=== PATIENT | female | born 1940 | race Caucasian/White ===

== ENCOUNTER 2017-01-29 19:09 | Emergency (ER) | payer OTHER ==
[~2017-01-29] VITALS: Ht 152.4 cm; Wt 65.0 kg
[~2017-01-29 19:09] MED LIST: ACET325T96 PO; ATV/1 PO; BUPR100T8 PO; GABA-113 PO; IBUP-1050 PO; LEVO25TA30 PO; MONT1TAB3 PO; OMEP40CA PO; ONDA4TAB65 PO; POTA-327 PO; ROPI1TAB PO; SIMV40TA2 PO; TRAM-10 PO; TRAM-453 PO; TRIA0.1O12 TOP; ZNT/150 PO
[2017-01-29 19:17] VITALS: Ht 152.4 cm; Wt 65.0 kg
--- NOTE | 2017-01-29 20:17 | EMERGENCY ROOM VISIT NOTE ---
ED Visit Note First contact with patient: 19:22 CHIEF COMPLAINT: Tick in the left breast HISTORY OF PRESENT ILLNESS: This patient noticed a tick embedded in the left breast this morning. Her was able to remove some of it but the patient still believes that she sees a small dark spot in the middle. She is not sure how long it could have been on, and comments that she thought that it looked slightly engorged. She covered the area with antibiotic ointment and a Band- Aid. REVIEW OF SYSTEMS: Review of systems as per HPI. All other systems reviewed were negative. At least 6 systems reviewed. PMH: Electronic medical records are reviewed and summarized as above/below. See Problem List. Tetanus is up-to-date. SOCIAL HISTORY: Patient lives at home. Non-smoker, occasional alcohol use. PHYSICAL EXAM: Vital Signs: Reviewed Nurse's notes. The mouth parts of a tick are embedded in the left upper breast at roughly 11:00. There is a small zone of inflammation around it. EMERGENCY DEPARTMENT COURSE: The area was cleansed with alcohol and anesthetized with ethyl chloride spray. The mouth parts of the tick were elevated with an 18-gauge needle, then excised with an 11 blade. Patient tolerated the procedure well. Bacitracin and a band-aid were put on the wound. She was given doxycycline 200 mg orally. She is educated on the worrisome signs or symptoms for which she should seek immediate medical attention. She does not have any evidence for infection at this time. Problem List Medical Problems: (1) Anemia Status: Resolved (2) Anxiety Status: Chronic (3) Cerebral vascular disease Status: Chronic (4) Chronic hyperkalemia Status: Chronic (5) Depression Status: Chronic (6) GERD (gastroesophageal reflux disease) Status: Chronic (7) Hyperlipidemia Status: Chronic (8) Hypothyroidism Status: Chronic (9) Osteoarthritis Status: Chronic Surgical Problems: (1) Previous back surgery Status: Chronic (2) S/P cholecystectomy Status: Chronic (3) S/P hysterectomy Status: Chronic (4) Status post arthroscopy of shoulder Status: Chronic Current/Historical Medications Scheduled Bupropion (Wellbutrin Sr), 100 MG PO BID Gabapentin (Neurontin), 300 MG PO HS Levothyroxine Sodium (Levoxyl), 62.5 MCG PO QAM Lorazepam (Ativan), 1 MG PO HS Montelukast Sodium (Singulair), 10 MG PO QAM Omeprazole (Prilosec), 40 MG PO BID Potassium Ext Rel (Klor-Con), 10 MEQ PO QAM Ranitidine Hcl (Zantac), 150 MG PO HS Ropinirole (Requip), 1 MG PO HS Simvastatin (Zocor), 40 MG PO HS Tramadol (Ultram), 50 MG PO HS Scheduled PRN Acetaminophen Tab (Tylenol), 325 MG PO Q8 PRN for Pain Ibuprofen (Advil), 400 MG PO UD PRN for Pain Ondansetron Hcl (Zofran), 4 MG PO TID PRN for Nausea Tramadol Hcl (Ultram), 50 MG PO Q8 PRN for Pain Triamcinolone Acet (Kenelog 0.1% ), 1 APPL TOP BID PRN for SKIN IMPAIRMENT Allergies Coded Allergies: Cyclobenzaprine (Verified Allergy, Severe, ANAPHYLAXIS, 04/07/16) Sulfa Antibiotics (Verified Allergy, Severe, Shortness of Breath, Rash, ) Tolterodine (Verified Adverse Reaction, Mild, DRY MOUTH, 04/07/16) Vital Signs Date Time Temp Pulse Resp B/P Pulse Ox O2 Delivery O2 Flow Rate FiO2 01/29/17 20:27 85 16 148/91 96 01/29/17 19:17 68 18 175/74 96 Room Air Medications Administered Medications (Trade) Dose Ordered Sig/Xenia Route Start Time Stop Time Status Last Admin Dose Admin Doxycycline Hyclate (Vibramycin Cap) 200 mg ONE ONCE PO 01/29/17 20:30 01/29/17 20:31 DC 01/29/17 20:33 200 MG Departure Information Impression Primary Impression: Tick bite Referrals Vika Castellanos D.O. (PCP) Patient Instructions My [facility] Additional Instructions Use Ibuprofen or Tylenol as needed for pain/discomfort. Follow up with family physician for continued care and treatment; rashes, bullet lesion, muscle or joint pain. Watch for signs of infection; increasing redness and swelling, pus like drainage or fevers. Keep antibiotic ointment on the site for 2-3 days. Return to the ED for signs of infection.
--- NOTE | 2017-01-29 20:22 | EMERGENCY ROOM VISIT NOTE ---
ED Visit Note First contact with patient: 19:22 Staff note: I have reviewed the Patients chart and have discussed this case with my PA. I generally agree with the ED note and findings.
[2017-01-29 20:27] VITALS: BP 148/91; PULSE 85; O2SAT 96
[2017-01-29] MEDS ORDERED: DOXYCYCLINE HYCLATE 100 MG CAP PO ONE (20:30)
== END 2017-01-29 20:35 | disposition home or self-care (01) ==
LOC: C.EDB 19:10 → C.EDD 20:35
DX: S29.8XXA Other specified injuries of thorax, initial encounter (principal); W57.XXXA Bitten or stung by nonvenomous insect and other nonvenomous arthropods, initial encounter; K21.9 Gastro-esophageal reflux disease without esophagitis; E87.5 Hyperkalemia; E78.5 Hyperlipidemia, unspecified; E03.9 Hypothyroidism, unspecified; M19.90 Unspecified osteoarthritis, unspecified site; Z90.49 Acquired absence of other specified parts of digestive tract; Z90.710 Acquired absence of both cervix and uterus

== ENCOUNTER 2018-02-01 17:32 | Emergency (ER) | payer MEDICARE, OTHER ==
[~2018-02-01] VITALS: Ht 152.4 cm; Wt 55.3 kg
[~2018-02-01 17:32] MED LIST changes: +ACET-1693 PO; -ACET325T96 PO
[2018-02-01 17:44] VITALS: TEMP 36.8; Ht 152.4 cm; Wt 55.3 kg
[2018-02-01] MEDS ORDERED: LORAZEPAM 1 MG TAB PO STA (18:45)
--- NOTE | 2018-02-01 19:17 | EMERGENCY ROOM VISIT NOTE ---
History Report prepared by Jo Ann: Moncho Eagle Under the Supervision of: Dr. Charles Chowdhury M.D. First contact with patient: 18:41 Chief Complaint: OTHER COMPLAINT Stated Complaint: SHAKING BAD,FEELS LIKE THROAT/LEGS/FEET IS SWOLLEN History of Present Illness The patient is a 77 year old female who presents to the Emergency Room with complaints of resolved tremors that occurred around 1300. The patient states she was experiencing right hand shakiness, which was later diagnosed as early Parkinson's disease by Dr. Luis Aguilera. She reports she was prescribed Carbidopa, which was gradually increased to 1.5 pills three times a day. The patient states starting a couple of weeks ago, she started to develop shakiness. She reports today she woke up with right hip pain. The patient states she did fall in the bath tub a couple of years ago, but states she has not experienced hip pain to this extent since the incident. She reports she had an x-ray done after the fall, which showed no significant results. The patient states after the hip pain, she also started to experience nausea. She reports she took antinausea medication and Ibuprofen for her symptoms. The patient states she accidentally took her Parkinson's medication an hour and a half later at 1130. The patient states she took and nap and woke up around 1300. She reports she started to severely shake and became anxious. She reports it felt as if her throat was closing and she was not able to breathe or swallow. The patient states at one point she tried to bite her tongue. She reports she tried to call Dr. Aguilera today, but states she was not able to get a hold of her physician. She reports she called her pharmacy who told her the medication she takes can cause these types of symptoms. The patient states the pharmacy told her to come to the ED if she felt her symptoms were severe. The patient denies LOC, headache, fevers, chills, diaphoresis, visual changes, neck pain, chest pain, vomiting, abdominal pain, melena, hematochezia, urinary symptoms, numbness , weakness, lymphadenopathy, rash, or other complaints. The patient reports a chronic history of back pain. Source of History: patient Onset: 1300 Position: other (global) Quality: other (shaking) Timing: resolved Modifying Factors (Relieving): ibuprofen, other Associated Symptoms: + nausea, + back pain Note: Associated symptoms: Right hip pain, closing throat Review of Systems See HPI for pertinent positives and negatives. A total of ten systems were reviewed and were otherwise negative. Past Medical & Surgical Medical Problems: (1) Anemia (2) Anxiety (3) Cerebral vascular disease (4) Chronic hyperkalemia (5) Depression (6) GERD (gastroesophageal reflux disease) (7) Hyperlipidemia (8) Hypothyroidism (9) Osteoarthritis Surgical Problems: (1) Previous back surgery (2) S/P cholecystectomy (3) S/P hysterectomy (4) Status post arthroscopy of shoulder Family History Cancer Diabetes mellitus FH: Parkinson's disease MOTHER Gallbladder disease Heart disease FATHER Hypertension Kidney disease Kidney stones Lung disease Stroke Social History Smoking Status: Former Smoker Marital Status: Housing Status: lives with significant other Occupation Status: retired Current/Historical Medications Scheduled Bupropion (Wellbutrin Sr), 100 MG PO BID Gabapentin (Neurontin), 300 MG PO HS Levothyroxine Sodium (Levoxyl), 62.5 MCG PO QAM Lorazepam (Ativan), 1 MG PO HS Montelukast Sodium (Singulair), 10 MG PO QAM Omeprazole (Prilosec), 40 MG PO BID Potassium Ext Rel (Klor-Con), 10 MEQ PO QAM Ranitidine Hcl (Zantac), 150 MG PO HS Ropinirole (Requip), 1 MG PO HS Simvastatin (Zocor), 40 MG PO HS Tramadol (Ultram), 50 MG PO HS Scheduled PRN Acetaminophen Tab (Tylenol), 325 MG PO Q8 PRN for Pain Ibuprofen (Advil), 400 MG PO UD PRN for Pain Ondansetron Hcl (Zofran), 4 MG PO TID PRN for Nausea Tramadol Hcl (Ultram), 50 MG PO Q8 PRN for Pain Triamcinolone Acet (Kenelog 0.1% ), 1 APPL TOP BID PRN for SKIN IMPAIRMENT Allergies Coded Allergies: Cyclobenzaprine (Verified Allergy, Severe, ANAPHYLAXIS, 04/07/16) Sulfa Antibiotics (Verified Allergy, Severe, Shortness of Breath, Rash, ) Tolterodine (Verified Adverse Reaction, Mild, DRY MOUTH, 04/07/16) Physical Exam Vital Signs Date Time Temp Pulse Resp B/P (MAP) Pulse Ox O2 Delivery O2 Flow Rate FiO2 02/01/18 21:15 82 16 121/71 98 02/01/18 19:20 82 20 150/84 95 Room Air 02/01/18 17:44 36.8 104 18 137/78 94 Room Air Physical Exam GENERAL: Awake, alert, anxious appearing, in no distress HENT: Normocephalic, atraumatic. Oropharynx unremarkable. EYES: Normal conjunctiva. Sclera non-icteric. NECK: Supple. No nuchal rigidity. FROM. No masses. RESPIRATORY: Clear to auscultation. No wheezes. No rales. Normal respiratory effort. CARDIAC: Normal rate. Normal rhythm. No murmurs. No rubs. Extremities warm and well perfused. Pulses equal. No JVD. GI: Soft, non-distended. No tenderness to palpation. No rebound or guarding. No masses. RECTAL: Deferred. MUSCULOSKELETAL: Atraumatic. Chest examination reveals no tenderness. The back is symmetrical on inspection without obvious abnormality. There is no CVA tenderness to palpation. No joint edema. Right SI joint and right sciatic notch tenderness. Good ROM of the right hip. LOWER EXTREMITIES: Calves are equal size bilaterally and non-tender. No edema. No discoloration. NEURO: Normal sensorium. No sensory or motor deficits noted. SKIN: No rash or jaundice noted. Medical Decision & Procedures ER Provider Diagnostic Interpretation: Radiology results as stated below per my review and radiologist interpretation: L-SPINE MIN 4 VIEWS ROUTINE CLINICAL HISTORY: 77 years-old Female presenting with RIGHT HIP AND LEG PAIN. TECHNIQUE: Frontal, bilateral oblique, lateral, and coned in lateral views of the lumbar spine were obtained. COMPARISON: 04/19/2016. FINDINGS: Severe S-shaped scoliotic curvature of the thoracolumbar spine. Osteopenia. Scoliotic curvature markedly degrades radiographic evaluation. Vertebral bodies grossly maintained normal height and lordosis. Intervertebral disc height loss suggested at several levels. Osteophytosis evident. It is difficult to evaluate for osseous neural foraminal narrowing. In scoliotic curvature. Arcuate lines of the sacrum intact. Cholecystectomy clips noted. No gross evidence of bowel obstruction. Atherosclerosis. IMPRESSION: 1. The degree of scoliosis makes evaluation for compression deformity or neural foraminal narrowing difficult. 2. Osteopenia. 3. Multilevel degenerative changes. Electronically signed by: Adal Dumont M.D. 02/01/2018 8:08 PM Dictated Date/Time: 02/01/2018 8:06 PM R HIP UNILATERAL 2 VIEWS CLINICAL HISTORY: 77 years-old Female presenting with RIGHT HIP AND LEG PAIN. TECHNIQUE: Frontal and frog-leg lateral views of the right hip were obtained. COMPARISON: CT of the abdomen and pelvis from 2015. FINDINGS: Right hip joint congruent. Osteopenia suggested. Visualized portion of the bony pelvis intact. No acute fracture or malalignment. No advanced degenerative change. No radiographic soft tissue abnormality. IMPRESSION: 1. Allowing for osteopenia, no evidence of acute fracture. No advanced degenerative change. Electronically signed by: Adal Dumont M.D. 02/01/2018 8:09 PM Dictated Date/Time: 02/01/2018 8:08 PM Laboratory Results 02/01/18 19:10 Red Blood Count 4.12, Mean Corpuscular Volume 91.5, Mean Corpuscular Hemoglobin 31.3, Mean Corpuscular Hemoglobin Concent 34.2, Mean Platelet Volume 9.2, Neutrophils (%) (Auto) 57.4, Lymphocytes (%) (Auto) 33.5, Monocytes (%) (Auto) 7.4, Eosinophils (%) (Auto) 1.1, Basophils (%) (Auto) 0.4, Neutrophils # (Auto) 2.73, Lymphocytes # (Auto) 1.59, Monocytes # (Auto) 0.35, Eosinophils # (Auto) 0.05, Basophils # (Auto) 0.02 02/01/18 19:10 Test 02/01/18 19:10 02/01/18 19:25 White Blood Count 4.75 K/uL (4.8-10.8) Red Blood Count 4.12 M/uL (4.2-5.4) Hemoglobin 12.9 g/dL (12.0-16.0) Hematocrit 37.7 % (37-47) Mean Corpuscular Volume 91.5 fL (80-100) Mean Corpuscular Hemoglobin 31.3 pg (25-34) Mean Corpuscular Hemoglobin Concent 34.2 g/dl (32-36) Platelet Count 246 K/uL (130-400) Mean Platelet Volume 9.2 fL (7.4-10.4) Neutrophils (%) (Auto) 57.4 % Lymphocytes (%) (Auto) 33.5 % Monocytes (%) (Auto) 7.4 % Eosinophils (%) (Auto) 1.1 % Basophils (%) (Auto) 0.4 % Neutrophils # (Auto) 2.73 K/uL (1.4-6.5) Lymphocytes # (Auto) 1.59 K/uL (1.2-3.4) Monocytes # (Auto) 0.35 K/uL (0.11-0.59) Eosinophils # (Auto) 0.05 K/uL (0-0.5) Basophils # (Auto) 0.02 K/uL (0-0.2) RDW Standard Deviation 44.8 fL (36.4-46.3) RDW Coefficient of Variation 13.5 % (11.5-14.5) Immature Granulocyte % (Auto) 0.2 % Immature Granulocyte # (Auto) 0.01 K/uL (0.00-0.02) Prothrombin Time 10.2 SECONDS (9.0-12.0) Prothromb Time International Ratio 1.0 (0.9-1.1) Activated Partial Thromboplast Time 28.9 SECONDS (21.0-31.0) Partial Thromboplastin Ratio 1.1 Anion Gap 5.0 mmol/L (3-11) Est Creatinine Clear Calc Drug Dose 41.3 ml/min Estimated GFR () 72.5 Estimated GFR (Non- 62.5 BUN/Creatinine Ratio 11.3 (10-20) Calcium Level 9.0 mg/dl (8.5-10.1) Magnesium Level 1.9 mg/dl (1.8-2.4) Total Bilirubin 0.5 mg/dl (0.2-1) Direct Bilirubin 0.1 mg/dl (0-0.2) Aspartate Amino Transf (AST/SGOT) 12 U/L (15-37) Alanine Aminotransferase (ALT/SGPT) 10 U/L (12-78) Alkaline Phosphatase 87 U/L (45-117) Total Protein 7.4 gm/dl (6.4-8.2) Albumin 4.0 gm/dl (3.4-5.0) Thyroid Stimulating Hormone (TSH) 0.175 uIu/ml (0.300-4.500) Urine Color DK YELLOW Urine Appearance CLEAR (CLEAR) Urine pH 5.5 (4.5-7.5) Urine Specific [place] 1.021 (1.000-1.030) Urine Protein NEG (NEG) Urine Glucose (UA) NEG (NEG) Urine Ketones TRACE (NEG) Urine Occult Blood NEG (NEG) Urine Nitrite NEG (NEG) Urine Bilirubin NEG (NEG) Urine Urobilinogen NEG (NEG) Urine Leukocyte Esterase MODERATE (NEG) Urine WBC (Auto) 10-30 /hpf (0-5) Urine RBC (Auto) 0-4 /hpf (0-4) Urine Hyaline Casts (Auto) 5-10 /lpf (0-5) Urine Epithelial Cells (Auto) >30 /lpf (0-5) Urine Bacteria (Auto) NEG (NEG) Laboratory results reviewed by me Medications Administered Medications (Trade) Dose Ordered Sig/Xenia Route Start Time Stop Time Status Last Admin Dose Admin Lorazepam (Ativan Tab) 1 mg NOW STAT PO 02/01/18 18:45 02/01/18 18:52 DC 02/01/18 19:00 1 MG ECG Per My Interpretation Indication: weakness, other (tremors) Rate (beats per minute): 86 Rhythm: normal sinus Findings: no acute ischemic change, no ectopy, other (Normal intervals) ED Course 1842: The patient was evaluated in room B08. A complete history and physical exam was performed. 1844: Ordered Ativan Tab 1 mg PO. 2056: I reevaluated the patient. Discussed results and discharge instructions: She verbalized understanding and agreement. The patient is ready for discharge. Medical Decision Prior records/ancillary studies reviewed and summarized above. Nursing notes reviewed and agree them. Additional history obtained from the patient's daughter. The patient's history was concerning for tremor, right hip/back pain, and anxiety. Differential diagnosis: Etiologies such as metabolic, infection, hypo/hyperglycemia, electrolyte abnormalities, cardiac sources, intracerebral event, toxicologic, neurologic, panic attack, anxiety, complication of Parkinson's, as well as others were entertained. Physical examination: As above. ER treatment provided: IV Lock Sublingual Ativan On reassessment the patient felt better. Diagnostics interpretation by me: ECG: Normal The labs revealed an unremarkable CBC and chemistry panel. Urinalysis shows some of the cells as well as white cells. Cultures pending. The patient has a low TSH however she is on Synthroid. Imaging studies: Deferred Family as patient was under a lot of stress recently. The patient admits to having anxiety and stress. This seems to be consistent with a pre-existing back /sciatica problem as well as her ongoing issues with early Parkinson's. She had tremor but was very anxious leading up to the tremor. She feels that she may have had a panic attack. This is likely. She was given a dose of Ativan and did very well in the emergency department. She notes having this by prescription but only able to take 1 a day and does so prior to going to bed. These episodes do not occur on a daily basis but do happen from time to time. She does not have any as needed medication to use for this. I did discuss having her review this with her primary physician. She has had recurrent issues with her back. Imaging reveals a significant amount of scoliosis. She has seen orthopedic spine. I did discuss following up with pain management and family felt that this was a very good idea. I gave my usual and customary discussion regarding this issue. By the evaluation outlined above other emergent etiologies such as those listed in the differential, as well as others, were deemed relatively unlikely. The patient was educated about the findings as listed above. All questions were answered and the patient was pleased with the treatment. Return instructions were outlined and the patient was discharged in stable condition. The patient was referred to pain management and PCP for follow-up for a recheck of the current condition. Medication Reconcilliation Current Medication List: was personally reviewed by me Blood Pressure Screening Patient's blood pressure: Elevated blood pressure Blood pressure disposition: Referred to PCP Impression Primary Impression: Tremor Additional Impressions: Anxiety Degenerative disc disease Scoliosis Scribe Attestation The scribe's documentation has been prepared under my direction and personally reviewed by me in its entirety. I confirm that the note above accurately reflects all work, treatment, procedures, and medical decision making performed by me. Departure Information Dispostion Home / Self-Care Referrals Vika Castellanos D.O. (PCP) Upendra. Ortega M.D. Forms HOME CARE DOCUMENTATION FORM, IMPORTANT VISIT INFORMATION, WORK / SCHOOL INSTRUCTIONS Patient Instructions My [facility] Additional Instructions DO NOT drive, drink alcohol, operate machinery, or perform dangerous activities today. You were given medications in the ER that can affect your ability to safely function or operate a vehicle. Acetaminophen(Tylenol) may be used for fever or pain. Use 1000mg every six hours as needed. Avoid using more than 4000mg in a 24 hour period. Rest and avoid heavy lifting until your symptoms resolve and then gradually return to full activity. A good rule of thumb is if it hurts your back to perform a certain activity, then it should be avoided until you are healthy again. A heating pad or warm compresses can be done several times a day as needed. Continue current medications. Return to the ER immediately for any numbness, tingling, severe pain, severe tremor, severe anxiety, loss of control of your bowels or bladder, inability to walk, or as needed. Follow up with your primary care physician within 3-5 days for a recheck of your current condition. Follow-up with pain management as discussed. Call the office tomorrow. The number is listed below under Dr. Ortega. Problem Qualifiers
[2018-02-01 19:30] LABS: BASO % 0.4 %; BASO ABS # 0.02 K/uL (0-0.2); EOS % 1.1 %; EOS ABS # 0.05 K/uL (0-0.5); HEMATOCRIT 37.7 % (37-47); HEMOGLOBIN 12.9 g/dL (12.0-16.0); IG# 0.01 K/uL (0.00-0.02); LYMPH % 33.5 %; LYMPH ABS # 1.59 K/uL (1.2-3.4); MEAN CELL VOLUME 91.5 fL (80-100); MEAN CORPUSCULAR HEMOGLOBIN 31.3 pg (25-34); MEAN CORPUSCULAR HGB CONC 34.2 g/dl (32-36); MEAN PLATELET VOLUME 9.2 fL (7.4-10.4); MONO % 7.4 %; MONO ABS # 0.35 K/uL (0.11-0.59); NEUT % 57.4 %; NEUT ABS # 2.73 K/uL (1.4-6.5); PLATELET COUNT 246 K/uL (130-400); RED CELL DISTRIBUTION WIDTH CV 13.5 % (11.5-14.5); RED CELL DISTRIBUTION WIDTH SD 44.8 fL (36.4-46.3); WHITE BLOOD COUNT 4.75 K/uL (4.8-10.8)
[2018-02-01 19:45] LABS: PTT PATIENT 28.9 SECONDS (21.0-31.0)
[2018-02-01 19:46] LABS: CREATININE 0.89 mg/dl (0.60-1.20); POTASSIUM 3.8 mmol/L (3.5-5.1)
[2018-02-01 19:57] LABS: TOTAL PROTEIN 7.4 gm/dl (6.4-8.2)
--- NOTE | 2018-02-01 20:09 | DIAGNOSTIC IMAGING REPORT ---
L-SPINE MIN 4 VIEWS ROUTINE CLINICAL HISTORY: 77 years-old Female presenting with RIGHT HIP AND LEG PAIN. TECHNIQUE: Frontal, bilateral oblique, lateral, and coned in lateral views of the lumbar spine were obtained. COMPARISON: 04/19/2016. FINDINGS: Severe S-shaped scoliotic curvature of the thoracolumbar spine. Osteopenia. Scoliotic curvature markedly degrades radiographic evaluation. Vertebral bodies grossly maintained normal height and lordosis. Intervertebral disc height loss suggested at several levels. Osteophytosis evident. It is difficult to evaluate for osseous neural foraminal narrowing. In scoliotic curvature. Arcuate lines of the sacrum intact. Cholecystectomy clips noted. No gross evidence of bowel obstruction. Atherosclerosis. IMPRESSION: 1. The degree of scoliosis makes evaluation for compression deformity or neural foraminal narrowing difficult. 2. Osteopenia. 3. Multilevel degenerative changes. Electronically signed by: Adal Dumont M.D. 02/01/2018 8:08 PM Dictated Date/Time: 02/01/2018 8:06 PM
--- NOTE | 2018-02-01 20:11 | DIAGNOSTIC IMAGING REPORT ---
R HIP UNILATERAL 2 VIEWS CLINICAL HISTORY: 77 years-old Female presenting with RIGHT HIP AND LEG PAIN. TECHNIQUE: Frontal and frog-leg lateral views of the right hip were obtained. COMPARISON: CT of the abdomen and pelvis from 2015. FINDINGS: Right hip joint congruent. Osteopenia suggested. Visualized portion of the bony pelvis intact. No acute fracture or malalignment. No advanced degenerative change. No radiographic soft tissue abnormality. IMPRESSION: 1. Allowing for osteopenia, no evidence of acute fracture. No advanced degenerative change. Electronically signed by: Adal Dumont M.D. 02/01/2018 8:09 PM Dictated Date/Time: 02/01/2018 8:08 PM
[2018-02-01 21:15] VITALS: BP 121/71; PULSE 82; O2SAT 98
== END 2018-02-01 21:16 | disposition home or self-care (01) ==
LOC: C.EDB 17:34
DX: R25.1 Tremor, unspecified (principal); F41.9 Anxiety disorder, unspecified; M51.36 Other intervertebral disc degeneration, lumbar region; M41.9 Scoliosis, unspecified; E87.5 Hyperkalemia; K21.9 Gastro-esophageal reflux disease without esophagitis; E78.5 Hyperlipidemia, unspecified; E03.9 Hypothyroidism, unspecified; M19.90 Unspecified osteoarthritis, unspecified site; Z87.891 Personal history of nicotine dependence; Z88.2 Allergy status to sulfonamides; Z88.8 Allergy status to other drugs, medicaments and biological substances

== ENCOUNTER 2020-10-14 20:39 | Inpatient (IN) ==
[2020-10-14] MEDS ORDERED: SODIUM CHLORIDE 0.9% 1000ML 500 ML IV ONE (20:55)
[2020-10-14 21:39] LABS: Basophils # (auto) 0.01 K/uL (0-0.2); Basophils % (auto) 0.3 %; Eosinophils # (auto) 0.03 K/uL (0-0.5); Eosinophils % (auto) 0.8 %; Hematocrit (blood only) 39.6 % (37-47); Hemoglobin 13.3 g/dL (12.0-16.0); Immature Granulocytes # (auto) 0.01 K/uL (0.00-0.02); Immature Granulocytes % (auto) 0.3 %; Lymphocytes # (auto) 1.74 K/uL (1.2-3.4); Lymphocytes % (auto) 48.3 %; Mean Corpuscular Hemoglobin 31.7 pg (25-34); Mean Corpuscular Hgb Conc 33.6 g/dL (32-36); Mean Corpuscular Volume 94.5 fL (80-100); Mean Platelet Volume 9.1 fL (7.4-10.4); Monocytes # (auto) 0.22 K/uL (0.11-0.59); Monocytes % (auto) 6.1 %; Neutrophils # (auto) 1.59 K/uL (1.4-6.5); Neutrophils % (auto) 44.2 %; Platelet Count 195 K/uL (130-400); RDW Coefficient of Variation 13.9 % (11.5-14.5); RDW Standard Deviation 48.1 fL (36.4-46.3); Red Blood Count 4.19 M/uL (4.2-5.4)
[2020-10-14 21:50] LABS: Partial Thromboplastin Ratio 1.1; Partial Thromboplastin Time 31.4 Seconds (21.0-31.0); Prothrombin Time 10.3 Seconds (9.0-12.0)
[2020-10-14 21:58] LABS: Alanine Aminotransferase 8 U/L (12-78); Albumin Level 3.6 gm/dl (3.4-5.0); Aspartate Aminotransferase 17 U/L (15-37); BUN Creatinine Ratio 7.5 (10-20); Blood Urea Nitrogen 5 mg/dl (7-18); Calcium 8.4 mg/dl (8.5-10.1); Carbon Dioxide 23 mmol/L (21-32); Chloride 108 mmol/L (98-107); Est GFR (African American) 91.7; Est GFR (Non-African American) 79.1; Glucose 94 mg/dl (70-99); Magnesium 1.8 mg/dl (1.8-2.4); Potassium 2.9 mmol/L (3.5-5.1); Sodium 142 mmol/L (136-145)
[2020-10-14 22:00] LABS: Alkaline Phosphatase 78 U/L (45-117); Bilirubin,Total 0.3 mg/dl (0.2-1); Globulin 3.6 gm/dl (2.5-4.0); Total Protein 7.2 gm/dl (6.4-8.2); Troponin I < 0.015 ng/ml (0-0.045)
[2020-10-14 22:05] LABS: Influenza A virus by PCR Negative (Negative); Influenza B virus by PCR Negative (Negative)
[2020-10-14] MEDS ORDERED: POTASSIUM CHLORIDE 10 MEQ TABCR PO STA (22:14)
[2020-10-14] MEDS ORDERED: DEXAMETHASONE SOD INJ 10 MG/ML VIAL IV ONE (23:00)
--- NOTE | 2020-10-14 23:23 | Emergency Department Note ---
History of Present Illness General Chief complaint: Fever Stated complaint: FEVER 100.5, BP 140/70 Time Seen by Provider: 10/14/20 20:53 History of Present Illness Provider complaint: Fever and chills Onset (ago): day(s) 1 Associated symptoms: + cough, + fever/chills and + weakness; no chest pain, no nausea/vomiting and no shortness of breath 80-year-old female presents emergency department for fever and chills. Patient states that earlier this evening she was watching TV and she suddenly developed severe chills. She states her family told her to come to the emergency department because they were concerned that she had COVID-19 as her son recently tested positive for COVID-19. Patient denies any chest pain or difficulty breathing at this time. She denies any nausea vomiting or diarrhea. No loss of taste or smell. She does report some fatigue. Home Medications Medication Instructions Recorded Confirmed Type carbidopa-levodopa 1 tab PO BID 03/02/19 10/14/20 History cholecalciferol (vitamin D3) 50,000 unit PO 2XWK 03/02/19 10/14/20 History docusate sodium 100 mg PO BID PRN 03/02/19 10/14/20 History escitalopram oxalate 10 mg PO QAM 03/02/19 10/14/20 History levothyroxine 50 mcg PO QAM 03/02/19 10/14/20 History lorazepam 1 - 2 mg PO DAILY PRN 03/02/19 10/14/20 History montelukast 10 mg PO QAM 03/02/19 10/14/20 History omeprazole 40 mg PO QAM 03/02/19 10/14/20 History ropinirole 1 mg PO HS 03/02/19 10/14/20 History diphenhydramine-acetaminophen 1 tab PO HS PRN 12/16/19 10/14/20 History [Tylenol PM Extra Strength] ondansetron HCl 4 mg PO Q8H PRN 10/14/20 10/14/20 History gabapentin 300 mg PO HS 10/15/20 10/15/20 History Allergies Allergy/AdvReac Type Severity Reaction Status Date / Time cyclobenzaprine Allergy Severe ANAPHYLAXIS Verified 10/14/20 21:44 Sulfa (Sulfonamide Allergy Severe Shortness Verified 10/14/20 21:44 Antibiotics) of Breath, Rash tolterodine AdvReac Mild DRY MOUTH Verified 10/14/20 21:44 Past Med/Surg History Medical History (Updated 10/14/20 @ 23:37 by Ponce Ho) GERD (gastroesophageal reflux disease) Hyperlipidemia Hypothyroidism Lung nodule Mitral valve prolapse No significant family history Surgical History S/P cholecystectomy S/P hysterectomy Social History Smoking Status: Former smoker Preferred Language: [place] Feels Safe at Home: Yes Review of Systems A total of 10 systems reviewed and were otherwise negative Physical Exam Vital Signs Vital Signs - 24 hr 10/14/20 20:45 10/14/20 21:00 10/14/20 21:30 Temperature 37.5 C Temperature Source Temporal Artery Scan Pulse Rate 106 H 92 H Pulse Rate from SpO2 Sensor Respiratory Rate 20 20 20 Respiratory Effort / Characteristics Non-Labored Spontaneous Non-Labored Spontaneous Respiratory Depth Normal Shallow Respiratory Pattern Regular Blood Pressure 160/82 H 155/45 H Blood Pressure [Right Arm] 155/45 H Blood Pressure Mean 108 117 Blood Pressure Mean [Right Arm] 81 Pulse Oximetry 93 95 91 Oxygen Delivery Method Room Air Room Air Room Air Sepsis Recent Fever Within 48 Hours Yes Sepsis New/Unexplained Change in Mental Status N/A Sepsis Action Taken by Nursing No Action Required 10/14/20 21:43 10/14/20 21:44 10/14/20 21:45 Temperature Temperature Source Pulse Rate 91 H 91 H Pulse Rate from SpO2 Sensor Respiratory Rate 20 20 20 Respiratory Effort / Characteristics Non-Labored Spontaneous Respiratory Depth Respiratory Pattern Blood Pressure 152/79 H 147/74 H Blood Pressure [Right Arm] Blood Pressure Mean 97 108 Blood Pressure Mean [Right Arm] Pulse Oximetry 95 90 91 Oxygen Delivery Method Room Air Room Air Room Air Sepsis Recent Fever Within 48 Hours Sepsis New/Unexplained Change in Mental Status Sepsis Action Taken by Nursing 10/14/20 22:00 10/14/20 22:15 10/14/20 22:30 Temperature Temperature Source Pulse Rate 87 90 89 Pulse Rate from SpO2 Sensor Respiratory Rate 20 20 19 Respiratory Effort / Characteristics Respiratory Depth Respiratory Pattern Blood Pressure 137/66 137/67 138/74 Blood Pressure [Right Arm] Blood Pressure Mean 83 107 97 Blood Pressure Mean [Right Arm] Pulse Oximetry 91 90 91 Oxygen Delivery Method Room Air Room Air Sepsis Recent Fever Within 48 Hours Sepsis New/Unexplained Change in Mental Status Sepsis Action Taken by Nursing 10/14/20 22:45 10/14/20 22:48 10/14/20 23:30 Temperature Temperature Source Pulse Rate 88 Pulse Rate from SpO2 Sensor Respiratory Rate 20 Respiratory Effort / Characteristics Non-Labored Spontaneous Non-Labored Respiratory Depth Respiratory Pattern Blood Pressure 152/62 H Blood Pressure [Right Arm] Blood Pressure Mean 96 Blood Pressure Mean [Right Arm] Pulse Oximetry 98 98 Oxygen Delivery Method Nasal Cannula Nasal Cannula Sepsis Recent Fever Within 48 Hours Sepsis New/Unexplained Change in Mental Status Sepsis Action Taken by Nursing 10/14/20 23:45 10/14/20 23:46 Temperature Temperature Source Pulse Rate 104 H 104 H Pulse Rate from SpO2 Sensor 104 H 105 H Respiratory Rate 20 17 Respiratory Effort / Characteristics Respiratory Depth Respiratory Pattern Blood Pressure 146/88 H Blood Pressure [Right Arm] Blood Pressure Mean 97 Blood Pressure Mean [Right Arm] Pulse Oximetry 98 96 Oxygen Delivery Method Nasal Cannula Sepsis Recent Fever Within 48 Hours Sepsis New/Unexplained Change in Mental Status Sepsis Action Taken by Nursing Physical Exam GENERAL: She is oriented to person, place, and time. She appears well-developed and well-nourished. She does not appear distressed. HENT: Exam performed. -Head: Normocephalic and atraumatic. -Right Ear: External ear normal. No mastoid tenderness. -Left Ear: External ear normal. No mastoid tenderness. -Mouth/Throat: The oropharynx is clear and moist. No trismus in the jaw. No dental abscesses or uvula swelling. No oropharyngeal exudate or tonsillar abscesses. EYES: Conjunctivae and EOM are normal. Pupils are equal, round, and reactive to light. Right eye exhibits no discharge. Left eye exhibits no discharge. No scleral icterus. NECK: Normal range of motion. Neck supple. No JVD present. No spinous process tenderness present. No carotid bruit present. No rigidity. No tracheal deviation and normal range of motion present. No Brudzinski's sign and no Kernig's sign noted. CV: Normal rate, regular rhythm, normal heart sounds and intact distal pulses. There is no peripheral edema. Palpable radial pulses bue. PULM/CHEST: Diminished breath sounds at the right lower lung. -Chest Wall: She exhibits no tenderness. ABD: The abdomen is soft. Bowel sounds are normal. She has no distension. No mass is present. There is no tenderness. There is no rebound, no guarding, no Jimenez's sign and no tenderness at McBurney's point. Rovsig negative MUSC/SKEL: Normal range of motion. There is no peripheral edema, tenderness or deformity. LYMPH: No cervical adenopathy. NEURO: She is alert and oriented to person, place, and time. She has normal strength. No cranial nerve deficit or sensory deficit. Coordination and gait normal. GCS eye subscore is 4. GCS verbal subscore is 5. GCS motor subscore is 6. Cerebellar tests wnl. SKIN: Area of erythema and mild warmth under the left breast. No fluctuant areas, no definite abscess. No vesicles. Nikolsky negative. Consistent with the appearance of cellulitis. PSYCH: She has a normal mood and affect. Behavior is normal. Judgment and thoug ht content normal. Course Course 2052: The patient was evaluated in room C3. A complete history and physical exam was performed. Cardiac monitoring: An order was placed for continuous cardiac monitoring. The monitor shows a rate of 100 with sinus rhythm Patient was seen in full airborne precautions. Patient was seen in N95's, gloves, gowns, face shield by myself and staff. 2300: Patient's oxygen saturations have been low to 90% on room air. Patient started on 2 L nasal cannula. Patient is COVID-19 positive. Decadron 6 mg will be given. Chest x-ray shows no focal infiltrate. Potassium low at 2.9. Potassium replaced in the emergency department. Patient started on doxycycline for cellulitis under the left breast. Patient will be admitted to the hospital service. Dr. Chong Stapleton hospitalist notified. Administered Medications Discontinued Medications Dexamethasone (Dexamethasone Sod Inj 10 Mg/Ml Vial) 6 mg IV NOW ONE Stop: 10/14/20 23:01 Last Admin: 10/14/20 23:48 Dose: 6 mg Documented by: [id number] Sodium Chloride (Nss 1000ml) 500 mls @ 999 mls/hr IV .Q31M ONE Stop: 10/14/20 21:25 Last Infusion: 10/14/20 22:42 Dose: 0 mls/hr Documented by: [id number] Admin: 10/14/20 21:37 Dose: 999 mls/hr Documented by: [id number] Potassium Chloride (K Wu / Wtr) 10 meq in 100 mls @ 100 mls/hr IV Q1H MARQUIS Stop: 10/15/20 00:14 Last Admin: 10/14/20 23:48 Dose: 100 mls/hr Documented by: [id number] Potassium Chloride (Potassium Chloride 10 Meq Tabcr) 40 meq PO NOW STA Stop: 10/14/20 22:15 Last Admin: 10/14/20 22:42 Dose: 40 meq Documented by: [id number] Medical Decision Making Laboratory Data Result diagrams: 10/14/20 21:20 10/14/20 21:20 Lab Results 10/14/20 10/14/20 10/14/20 Range/Units 21:20 21:20 21:20 WBC 3.60 L (4.8-10.8) K/uL RBC 4.19 L (4.2-5.4) M/uL Hgb 13.3 (12.0-16.0) g/dL Hct 39.6 (37-47) % MCV 94.5 (80-100) fL MCH 31.7 (25-34) pg MCHC 33.6 (32-36) g/dL RDW Std Deviation 48.1 H (36.4-46.3) fL RDW Coeff of Arturo 13.9 (11.5-14.5) % Plt Count 195 (130-400) K/uL MPV 9.1 (7.4-10.4) fL Immature Gran % (Auto) 0.3 % Neut % (Auto) 44.2 % Lymph % (Auto) 48.3 % Wells % (Auto) 6.1 % Eos % (Auto) 0.8 % Baso % (Auto) 0.3 % Neut # (Auto) 1.59 (1.4-6.5) K/uL Lymph # (Auto) 1.74 (1.2-3.4) K/uL Wells # (Auto) 0.22 (0.11-0.59) K/uL Eos # (Auto) 0.03 (0-0.5) K/uL Baso # (Auto) 0.01 (0-0.2) K/uL Immature Gran # (Auto) 0.01 (0.00-0.02) K/uL PT 10.3 (9.0-12.0) Seconds INR 1.0 (0.9-1.1) APTT 31.4 H (21.0-31.0) Seconds PTT Ratio 1.1 Sodium 142 (136-145) mmol/L Potassium 2.9 L (3.5-5.1) mmol/L Chloride 108 H (98-107) mmol/L Carbon Dioxide 23 (21-32) mmol/L Anion Gap 10.0 (3-11) BUN 5 L (7-18) mg/dl Creatinine 0.72 (0.6-1.2) mg/dl Est Cr Clr Drug Dosing Not Reportable Est GFR ( Amer) 91.7 Est GFR (Non-Af Amer) 79.1 BUN/Creatinine Ratio 7.5 L (10-20) Glucose 94 (70-99) mg/dl Lactate (0.4-2.0) mmol/L Calcium 8.4 L (8.5-10.1) mg/dl Magnesium 1.8 (1.8-2.4) mg/dl Total Bilirubin 0.3 (0.2-1) mg/dl AST 17 (15-37) U/L ALT 8 L (12-78) U/L Alkaline Phosphatase 78 (45-117) U/L Troponin I < 0.015 (0-0.045) ng/ml Total Protein 7.2 (6.4-8.2) gm/dl Albumin 3.6 (3.4-5.0) gm/dl Globulin 3.6 (2.5-4.0) gm/dl Albumin/Globulin Ratio 1.0 (0.9-2) Procalcitonin (0-0.5) ng/ml Specimen Hemolysis COVID-19 Eval Order Influ A Molecular Assay (Negative) Influ B Molecular Assay (Negative) SARS-CoV-2, RNA, NAAT (NEGATIVE) 10/14/20 10/14/20 10/14/20 Range/Units 21:20 21:20 21:30 WBC (4.8-10.8) K/uL RBC (4.2-5.4) M/uL Hgb (12.0-16.0) g/dL Hct (37-47) % MCV (80-100) fL MCH (25-34) pg MCHC (32-36) g/dL RDW Std Deviation (36.4-46.3) fL RDW Coeff of Arturo (11.5-14.5) % Plt Count (130-400) K/uL MPV (7.4-10.4) fL Immature Gran % (Auto) % Neut % (Auto) % Lymph % (Auto) % Wells % (Auto) % Eos % (Auto) % Baso % (Auto) % Neut # (Auto) (1.4-6.5) K/uL Lymph # (Auto) (1.2-3.4) K/uL Wells # (Auto) (0.11-0.59) K/uL Eos # (Auto) (0-0.5) K/uL Baso # (Auto) (0-0.2) K/uL Immature Gran # (Auto) (0.00-0.02) K/uL PT (9.0-12.0) Seconds INR (0.9-1.1) APTT (21.0-31.0) Seconds PTT Ratio Sodium (136-145) mmol/L Potassium (3.5-5.1) mmol/L Chloride (98-107) mmol/L Carbon Dioxide (21-32) mmol/L Anion Gap (3-11) BUN (7-18) mg/dl Creatinine (0.6-1.2) mg/dl Est Cr Clr Drug Dosing Est GFR ( Amer) Est GFR (Non-Af Amer) BUN/Creatinine Ratio (10-20) Glucose (70-99) mg/dl Lactate 1.2 (0.4-2.0) mmol/L Calcium (8.5-10.1) mg/dl Magnesium (1.8-2.4) mg/dl Total Bilirubin (0.2-1) mg/dl AST (15-37) U/L ALT (12-78) U/L Alkaline Phosphatase (45-117) U/L Troponin I (0-0.045) ng/ml Total Protein (6.4-8.2) gm/dl Albumin (3.4-5.0) gm/dl Globulin (2.5-4.0) gm/dl Albumin/Globulin Ratio (0.9-2) Procalcitonin < 0.05 (0-0.5) ng/ml Specimen Hemolysis COVID-19 Eval Order Influ A Molecular Assay Negative (Negative) Influ B Molecular Assay Negative (Negative) SARS-CoV-2, RNA, NAAT (NEGATIVE) 10/14/20 10/14/20 Range/Units 21:30 21:30 WBC (4.8-10.8) K/uL RBC (4.2-5.4) M/uL Hgb (12.0-16.0) g/dL Hct (37-47) % MCV (80-100) fL MCH (25-34) pg MCHC (32-36) g/dL RDW Std Deviation (36.4-46.3) fL RDW Coeff of Arturo (11.5-14.5) % Plt Count (130-400) K/uL MPV (7.4-10.4) fL Immature Gran % (Auto) % Neut % (Auto) % Lymph % (Auto) % Wells % (Auto) % Eos % (Auto) % Baso % (Auto) % Neut # (Auto) (1.4-6.5) K/uL Lymph # (Auto) (1.2-3.4) K/uL Wells # (Auto) (0.11-0.59) K/uL Eos # (Auto) (0-0.5) K/uL Baso # (Auto) (0-0.2) K/uL Immature Gran # (Auto) (0.00-0.02) K/uL PT (9.0-12.0) Seconds INR (0.9-1.1) APTT (21.0-31.0) Seconds PTT Ratio Sodium (136-145) mmol/L Potassium (3.5-5.1) mmol/L Chloride (98-107) mmol/L Carbon Dioxide (21-32) mmol/L Anion Gap (3-11) BUN (7-18) mg/dl Creatinine (0.6-1.2) mg/dl Est Cr Clr Drug Dosing Est GFR ( Amer) Est GFR (Non-Af Amer) BUN/Creatinine Ratio (10-20) Glucose (70-99) mg/dl Lactate (0.4-2.0) mmol/L Calcium (8.5-10.1) mg/dl Magnesium (1.8-2.4) mg/dl Total Bilirubin (0.2-1) mg/dl AST (15-37) U/L ALT (12-78) U/L Alkaline Phosphatase (45-117) U/L Troponin I (0-0.045) ng/ml Total Protein (6.4-8.2) gm/dl Albumin (3.4-5.0) gm/dl Globulin (2.5-4.0) gm/dl Albumin/Globulin Ratio (0.9-2) Procalcitonin (0-0.5) ng/ml Specimen Hemolysis COVID-19 Eval [facility] A Molecular Assay (Negative) Influ B Molecular Assay (Negative) SARS-CoV-2, RNA, NAAT POSITIVE A* (NEGATIVE) Imaging Data My Impression: Chest x-ray negative. Airway clear. No pneumothorax. No consolidation. No cardiomegaly or cephalization.. No free air under the diaphragm. No fractures of the skeletal structures. ECG Data Indication: + SOB/dyspnea Rate (beats per minute): 101 Rhythm: + normal sinus ECG Intervals/blocks: + Normal QRS, + Normal HI and + Normal QT-c ECG ST segments: + Normal ST segments MDM Narrative 2052: The patient was evaluated in room C3. A complete history and physical exam was performed. Cardiac monitoring: An order was placed for continuous cardiac monitoring. The monitor shows a rate of 100 with sinus rhythm Patient was seen in full airborne precautions. Patient was seen in N95's, gloves, gowns, face shield by myself and staff. 2300: Patient's oxygen saturations have been low to 90% on room air. Patient started on 2 L nasal cannula. Patient is COVID-19 positive. Decadron 6 mg will be given. Chest x-ray shows no focal infiltrate. Potassium low at 2.9. Potassium replaced in the emergency department. Patient started on doxycycline for cellulitis under the left breast. Patient will be admitted to the hospital service. Dr. Chong Stapleton hospitalist notified. Impression & Plan COVID-19, Acute hypokalemia, Cellulitis Discharge Plan Visit Data Chief Complaint: Fever Stated Complaint: FEVER 100.5, BP 140/70 ED Provider: Ponce Ho Discharge Problem: COVID-19, Acute hypokalemia, Cellulitis Patient Disposition: Being Evaluated by Hospitalist Discharge Instructions Krames/Other Patient Handouts: 2019-nCoV, COVID-19 Prevention, ED Hypokalemia, ED Potassium-Rich Foods, Caring for Someone Who Has COVID-19, Dealing With the Stress of ..., Disinfecting Your Home of COVID-19 Forms Stand Alone Forms: My [facility], Virtual Emergency Department, Important Visit Information Prescriptions Prescriptions: No Action ropinirole 1 mg Tablet 1 mg PO HS RF: 0 omeprazole 40 mg Capsule,Delayed Release(Dr/Ec) 40 mg PO QAM RF: 0 levothyroxine 50 mcg tablet 50 mcg PO QAM RF: 0 docusate sodium 100 mg Capsule 100 mg PO BID PRN (Reason: Constipation) RF: 0 montelukast 10 mg Tablet 10 mg PO QAM RF: 0 lorazepam 1 mg tablet 1 - 2 mg PO DAILY PRN (Reason: Anxiety/Insomnia) RF: 0 carbidopa-levodopa 25-100 mg Tablet 1 tab PO BID RF: 0 escitalopram oxalate 10 mg tablet 10 mg PO QAM RF: 0 cholecalciferol (vitamin D3) 50,000 unit capsule 50,000 unit PO 2XWK RF: 0 diphenhydramine-acetaminophen [Tylenol PM Extra Strength] 25-500 mg Tablet 1 tab PO HS PRN (Reason: Sleep) RF: 0 ondansetron HCl 4 mg tablet 4 mg PO Q8H PRN (Reason: Nausea) RF: 0 gabapentin 300 mg capsule 300 mg PO HS RF: 0 Referrals Referrals: Tracey Vides PA-C [Primary Care Provider] - (Follow-up in 1 to 2 weeks.) Discharge Problem: Cellulitis Qualifiers: Site of cellulitis: trunk Site of cellulitis of trunk: chest wall Qualified Code(s): L03.313 - Cellulitis of chest wall
[2020-10-14] MEDS ORDERED: DOXYCYCLINE HYCLATE 100 MG CAP PO STA (23:37)
[2020-10-14] MEDS: POTASSIUM CHLORIDE / WTR 10 MEQ/100 ML PLCT IV SCH (23:48)
[2020-10-15] MEDS ORDERED: REMDESIVIR 200 MG in SODIUM CHLORIDE 0.9% 210 ML IV STA (00:18)
[2020-10-15] MEDS ORDERED: POTASSIUM CHLORIDE CRTAB 20 MEQ TABCR PO STA (00:18)
[2020-10-15] MEDS ORDERED: rOPINIRole HCL 1 MG TABLET PO STA (00:19)
[2020-10-15] MEDS ORDERED: diphenhydrAMINE Capsule 25 MG CAP PO ONE (00:20)
[2020-10-15] MEDS ORDERED: GABAPENTIN 300 MG CAP PO STA (00:25)
[2020-10-15] MEDS ORDERED: DOCUSATE SODIUM 100 MG CAP PO PRN (01:41)
[2020-10-15] MEDS ORDERED: diphenhydrAMINE Capsule 25 MG CAP PO PRN (01:41)
[2020-10-15] MEDS: POTASSIUM CHLORIDE / WTR 10 MEQ/100 ML PLCT IV SCH (01:45)
[2020-10-15] MEDS: ONDANSETRON 4 MG OD TAB PO PRN ×2 (02:03→21:08)
--- NOTE | 2020-10-15 02:10 | History and Physical Report ---
DATE OF ADMISSION: 10/14/2020 CHIEF COMPLAINT: Fever. HISTORY OF PRESENT ILLNESS: This is an 80-year-old female with past medical history significant for Parkinson's disease, hypothyroidism, hypopotassemia , hyperlipidemia, history of CVA, GERD, anxiety, insomnia, depression, history of spinal stenosis, status post lumbar spine surgery. Lives with her and son, was brought in because of fever. One of the patient's son has COVID. He lives across their house. Today the patient was sitting in a chair and felt chills and her granddaughter checked temperature, it was 100 degrees and she was advised to come to the hospital. She has occasional cough, but nothing unusual. Denies any shortness of breath, no chest pain. Has some headache. No blurred vision, no earache, Attributes her headache to fall in the spring. No blurred visions. No earache, no runny nose, no sore throat, no loss of sense of smell or taste. Appetite is not that great. No nausea, no abdominal pain. Normal bowel and bladder movements. Complains of pain in the lower extremities from her arthritis. She says she ambulates without any support. Her oxygen was 90% on room air with oxygen supplementation it isin high 90s. Currently resting comfortably and hemodynamically stable. ALLERGIES: SULFA ANTIBIOTICS, TOLTERODINE AND FLEXERIL. PAST MEDICAL HISTORY: As mentioned above. PAST SURGICAL HISTORY: Colonoscopy, EGDs, EGD with biopsy, cholecystectomy, shoulder surgery, total abdominal hysterectomy with removal of tubes, right total knee replacement. MEDICATIONS: The patient is on carbidopa/levodopa 1 tablet p.o. b.i.d., vitamin D 50,000 units p.o. 2 times a week, Tylenol PM 1 tablet at bedtime p.r.n., Colace 100 mg p.o. b.i.d. p.r.n., Lexapro 10 mg p.o. a.m., gabapentin 300 mg at bedtime, levothyroxine 50 mcg p.o. a.m., Ativan 1-2 mg p.o. daily p.r.n., montelukast 10 mg p.o. a.m., omeprazole 40 mg p.o. a.m., Zofran 4 mg q. 8 hours p.r.n., ropinirole 1 mg p.o. at bedtime. FAMILY HISTORY: Significant for brother had colon cancer. Brother has heart disorder. Father has diabetes and heart disorder. SOCIAL HISTORY: , lives with . Former smoker, quit in 1978, smoked half pack a day for 35 years. No alcohol use, no drug use. REVIEW OF SYMPTOMS: As per HPI. Rest of review of symptoms negative. PHYSICAL EXAMINATION: GENERAL: The patient is of moderate build, not in acute distress. VITAL SIGNS: Temperature 37.5, pulse 104, respiratory rate 17, blood pressure 146/88, oxygen 96% on 2 liters. HEENT: Pupils equal, round, reactive to light. Oral mucosa dry. NECK: No neck masses seen. CARDIOVASCULAR: S1, S2 heard, regular rate and rhythm, no murmur, no gallop. RESPIRATORY SYSTEM: Normal AP diameter. No accessory muscle use. No wheezing, no crackles. ABDOMEN: Soft, bowel sounds present, nontender. No distention. CENTRAL NERVOUS SYSTEM: Cranial nerves II through XII grossly intact, nonfocal. EXTREMITIES: No edema, no erythema. LABORATORY DATA: WBC 3.6, hemoglobin 13.3, hematocrit 39.6, platelets 195. PT 10.3, INR 1, APTT 31.4. Sodium 142, potassium 2.9, chloride 108, bicarbonate 23, BUN 35, creatinine 0.7, serum glucose 94, lactate 1.2, calcium 8.4, magnesium 1.8, total bilirubin 0.3, AST 17, ALT 8, alkaline phosphatase 78. Troponin I less than 0.015. Procalcitonin less than 0.05. Influenza A and B negative. SARS-CoV-2 RNA positive. Chest x-ray: No acute infiltrates seen. EKG: Sinus tachycardia at a rate of 101. Nonspecific ST abnormalities. ASSESSMENT AND PLAN: This is an 80-year-old female who presents with having fever at home and found to have COVID positive. 1. Fever, leukopenia, COVID positive. Chest x-ray,no obvious infiltrates, was saturating 90% on room air, requiring 2 liters to improve oxygen saturation. hemodynamically stable. We will start Decadron and remdesivir, the patient meets criteria for remdesivir. We will follow remdesivir labs. Closely monitor in the medical floor. 2. Parkinson's. Continue home carbidopa/levodopa. 3. Depression. Continue Lexapro. 4. Restless leg syndrome. Continue ReQuip. 5. Anxiety. Continue Ativan p.r.n. 6. Hypothyroidism. Continue Synthroid. 7. Gastroesophageal reflux disease, continue omeprazole. 8. hx of hypophosphatemia The patient supposed to be on 10 mEq potassium supplements daily, but seems to be ran out of medication. Current potassium is 2.9. We will replace and also start KCL 10 mEq daily and follow the labs daily. 9. Deep venous thrombosis prophylaxis, Lovenox. DISPOSITION: Closely monitor in medical floor. Level 1 full code as per discussion with the patient, expect discharge home and follow with family doctor. PT and OT prior to discharge. Social service to help with discharge planning. RUSS
[2020-10-15 02:11] LABS: Appearance Urine Clear (Clear); Bacteria Urine Automated 4+ (Negative); Bilirubin Urine Negative (Negative); Blood Urine Negative (Negative); Color Urine Yellow; Glucose Urine UA Negative (Negative); Ketones Urine Negative (Negative); Leukocyte Esterase Urine Trace (Negative); Nitrite Urine Positive (Negative); Protein Urine Negative (Negative); RBC Urine Automated 0-4 /hpf (0-4); Specific Gravity Urine 1.011 (1.000-1.030); Urobilinogen Urine Negative (Negative)
[2020-10-15] MEDS: SODIUM CHLORIDE 0.9% 10ML FLUSH IV SCH ×2 (03:11→22:14)
[2020-10-15] MEDS: LEVOTHYROXINE SODIUM 50 MCG TABLET PO SCH (05:49)
[2020-10-15 07:10] LABS: Hemoglobin 12.2 g/dL (12.0-16.0); Lymphocytes % (auto) 30.5 %; Mean Corpuscular Hemoglobin 31.3 pg (25-34); Mean Corpuscular Volume 94.9 fL (80-100); Mean Platelet Volume 9.4 fL (7.4-10.4); Monocytes # (auto) 0.04 K/uL (0.11-0.59); Neutrophils # (auto) 1.33 K/uL (1.4-6.5); Neutrophils % (auto) 67.5 %; Platelet Count 189 K/uL (130-400); RDW Coefficient of Variation 14.2 % (11.5-14.5); RDW Standard Deviation 48.9 fL (36.4-46.3); White Blood Count 1.97 K/uL (4.8-10.8)
--- NOTE | 2020-10-15 07:21 | XRay Report ---
SINGLE VIEW CHEST CLINICAL HISTORY: Sepsis. FINDINGS: An AP, portable, upright chest radiograph is compared to chest x-ray and chest CT dated 12/15. The examination is degraded by portable technique and patient rotation. The heart is mildly en larged noting atherosclerotic calcification of the thoracic aorta. The pulmonary vasculature is nonco ngested. Chronic interstitial thickening is similar to previous. There is mild bibasilar scarring/ate lectasis. No airspace consolidation or large pleural effusion is identified. Apical scarring is obser lynsey. No pneumothorax is seen. The skeletal structures are osteopenic. The bony thorax is grossly inta ct. Cholecystectomy clips are noted in the right upper quadrant. IMPRESSION: Mild cardiac enlargement with no acute cardiopulmonary abnormality. ACT 112: Negative or not required by law. Electronically signed by: Gideon Haynes M.D. 10/15/2020 7:19 AM
[2020-10-15 07:35] LABS: Alanine Aminotransferase 9 U/L (12-78); Albumin Level 3.3 gm/dl (3.4-5.0); Aspartate Aminotransferase 12 U/L (15-37); BUN Creatinine Ratio 8.9 (10-20); Bilirubin Direct < 0.1 mg/dl (0-0.2); Blood Urea Nitrogen 6 mg/dl (7-18); Calcium 8.5 mg/dl (8.5-10.1); Carbon Dioxide 23 mmol/L (21-32); Chloride 114 mmol/L (98-107); Creatinine Clr Calc Pharmacy 55.1 ml/min; Est GFR (African American) 97.7; Est GFR (Non-African American) 84.3; Glucose 138 mg/dl (70-99); Magnesium 1.8 mg/dl (1.8-2.4); Potassium 4.4 mmol/L (3.5-5.1); Sodium 143 mmol/L (136-145)
[2020-10-15 07:41] LABS: Alkaline Phosphatase 70 U/L (45-117); Bilirubin,Total 0.3 mg/dl (0.2-1); Total Protein 6.4 gm/dl (6.4-8.2)
[2020-10-15] MEDS: DOXYCYCLINE HYCLATE 100 MG CAP PO SCH ×2 (08:17→20:58)
[2020-10-15] MEDS: CARBIDOPA/LEVODOPA 25/100MG TAB PO SCH ×2 (08:17→20:57)
[2020-10-15] MEDS: ESCITALOPRAM OXALATE 10 MG TAB PO SCH (08:17)
[2020-10-15] MEDS: ENOXAPARIN INJ 40 MG/0.4 ML SYR SQ SCH (08:17)
[2020-10-15] MEDS: POTASSIUM CHLORIDE 10 MEQ TABCR PO SCH (08:17)
[2020-10-15] MEDS: PANTOprazole 40 MG TAB PO SCH (08:17)
[2020-10-15] MEDS: dexAMETHasone 6 MG in SYRINGE 0 ML IV SCH (08:18)
[2020-10-15] MEDS ORDERED: SODIUM CHLORIDE 0.9% 1000ML 1,000 ML IV ONE (09:38)
[2020-10-15] MEDS ORDERED: OPTIRAY 320 100ml IV ONE (10:20)
[2020-10-15] MEDS: cefTRIAXone SODIUM 1,000 MG in DEXTROSE 5% 50 ML IV SCH (10:36)
--- NOTE | 2020-10-15 10:43 | CT Scan Report ---
CHEST CT WITH CONTRAST CT DOSE: 185.17 mGycm HISTORY: COVID, Left Breast lesion R/O Abscess TECHNIQUE: Multiaxial CT images of the chest were performed following the intravenous administration of contrast. A dose lowering technique was utilized adhering to the principles of ALARA. COMPARISON: Chest CTA 12/16/2019. FINDINGS: Mild biapical pleural-parenchymal scarring, unchanged. No pneumothorax. No pleural effusion s. The central airways are patent. Stable 6 mm groundglass nodule within the right middle lobe abutti ng the minor fissure. There is a new 5 mm groundglass nodule within the right upper lobe anteriorly o n image 124. Small focal area of consolidation within the right lower lobe posteriorly on image 130. This favors atelectasis. However, a low-grade pneumonitis could also have a similar appearance. Linea r density within the left lower lobe favors subsegmental atelectasis. A few prominent right hilar lym ph nodes remain stable. No mediastinal lymphadenopathy. Limited views of the upper abdomen demonstrat e a normal spleen and adrenal glands. Right-sided parapelvic cysts are noted. Prior cholecystectomy. Hepatic steatosis. Normal esophagus. There is a 6 mm nodule within the left inferior breast on image 205. This is technically indeterminate but does not represent an abscess. 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 The remaining subclavian artery is well opacified. Normal caliber thoracic aorta. The main pulmonary arteries are patent. No suspicious lytic or blastic osseous lesions. IMPRESSION: 1. There is a 6 mm nodule within the left inferior breast which is technically indeterminate but does not represent an abscess. Follow-up nonemergent mammogram/ultrasound at a dedicated breast Center ould be performed for further evaluation. 2. A stable 6 mm groundglass nodule within the right middle lobe and a new 5 mm groundglass nodule wi thin the right upper lobe as described above. A [address] follow-up is recommended to ensure st ability. 3. Additional findings as described above. ACT 112: Negative or not required by law. Electronically signed by: Dani Liz M.D. 10/15/2020 10:42 AM
--- NOTE | 2020-10-15 14:40 | Electrocardiogram Report ---
Test Reason : Blood Pressure : / mmHG Vent. Rate : 101 BPM Atrial Rate : 101 BPM P-R Int : 194 ms QRS Dur : 088 ms QT Int : 346 ms P-R-T Axes : 034 012 036 degrees QTc Int : 448 ms Sinus tachycardia Possible Inferior infarct , age undetermined Abnormal ECG When compared with ECG of 16-DEC-2019 20:01, Borderline criteria for Inferior infarct are now Present T wave inversion now evident in Lateral leads Confirmed by Abran Christianson ([id number]) on 10/15/2020 2:39:53 PM Referred By: REFERRED SELF Confirmed By:Nima Christianson
[2020-10-15] MEDS: LORazepam 1 MG TAB PO PRN (17:28)
--- NOTE | 2020-10-15 18:39 | Hospitalist Progress Note ---
Date of Service October 15, 2020 Assessment & Plan (1) COVID-19: Patient is an 80 yr female who presents with having fever at home and found to have COVID positive. Acute respiratory failure with hypoxia COVID-19 pneumonitis Leukopenia/lymphopenia --CT Chest: There is a 6 mm nodule within the left inferior breast which is technically indeterminate but does not represent an abscess. Follow-up nonemergent mammogram/ultrasound at a dedicated breast Center should be performed for further evaluation. A stable 6 mm groundglass nodule within the right middle lobe and a new 5 mm groundglass nodule within the right upper lobe as described above. A [address] follow-up is recommended to ensure stability. --SARS-Cov-2 RNA: Positive -Normal procalcitonin -Normal lactate levels -Continue remdesivir, dexamethasone as per protocol Continue supplemental oxygen as needed Hypokalemia Replete electrolytes as needed Normal magnesium levels Monitor electrolytes Abnormal UA R/O UTI Urine, blood cultures pending Continue Rocephin empirically Right Breast Erythematous Lesion Left breast nodule--incidental finding on CT scan H/O recurrent lesions B/L as per patient CT as above-- No obvious abscess Denies pain, itching Monitor Needs nonemergent mammogram as outpatient Right middle, right upper lung nodules CT as above Needs follow-up CT as outpatient Parkinson's Disease Continue carbidopa/levodopa. Depression/Anxiety Continue Escitalopram Ativan as needed Restless leg syndrome Continue ReQuip Hypothyroidism Continue levothyroxine GERD continue PPI H/O Hypophosphatemia Continue home supplements DVT Px: Lovenox SQ Code Status Full Code DISPOSITION: Expect discharge home when medically stable Admission and Anticipated Discharge Date Admission Date: October 15, 2020 Subjective Patient is seen and examined bedside Intermittent dyspnea, cough Denies itching, pain of the left breast fold lesion Denies chest pain, dizziness, nausea, abdominal pain Offers no other complaints Saturating 96% on 1 L supplemental oxygen Review of Systems Review of Systems: All systems reviewed & are unremarkable except as noted in HPI & below Physical Exam Physical Exam: Physical Exam: Vitals signs as noted above General Appearance:Moderately built and nourished, no apparent distress Head: normocephalic, Atraumatic Eyes: normal inspection, EOMI Neck: supple, Trachea midline Respiratory/Chest: Normal breath sounds, CTA, + Left breast fold erythematous lesion Cardiovascular: S1, S2, No murmur Abdomen/GI:Soft, Non tender, Bowel sounds present Extremities/Musculoskelatal:normal inspection, no edema Neurologic/Psych:AAOX3, grossly no focal neurological deficits Skin: normal color, warm Results & Data Results & Data ([facility]) Vital Signs (Past 12 Hours) Vital Signs Temp Pulse Resp BP BP Pulse Ox 10/15/20 14:21 36.3 C L 98 H 18 126/78 96 10/15/20 07:30 36.7 C 102 H 18 139/87 91 Laboratory Results Short CBC 10/14/20 10/15/20 Range/Units 21:20 05:33 WBC 3.60 L 1.97 L (4.8-10.8) K/uL Hgb 13.3 12.2 (12.0-16.0) g/dL Hct 39.6 37.0 (37-47) % Plt Count 195 189 (130-400) K/uL BMP 10/14/20 10/15/20 21:20 05:33 Sodium 142 143 Potassium 2.9 L 4.4 D Chloride 108 H 114 H Carbon Dioxide 23 23 BUN 5 L 6 L Creatinine 0.72 0.64 Glucose 94 138 H Calcium 8.4 L 8.5 Cardiac Enzymes 10/14/20 Range/Units 21:20 Troponin I < 0.015 (0-0.045) ng/ml Liver Function 10/14/20 10/15/20 Range/Units 21:20 05:33 Total Bilirubin 0.3 0.3 (0.2-1) mg/dl Direct Bilirubin < 0.1 (0-0.2) mg/dl AST 17 12 L (15-37) U/L ALT 8 L 9 L (12-78) U/L Alkaline Phosphatase 78 70 (45-117) U/L Albumin 3.6 3.3 L (3.4-5.0) gm/dl Urine 10/15/20 Range/Units 01:40 Urine Color Yellow Urine Appearance Clear (Clear) Urine pH 6.0 (4.5-7.5) Ur Specific [place] 1.011 (1.000-1.030) Urine Protein Negative (Negative) Urine Glucose (UA) Negative (Negative)
[2020-10-15] MEDS: GABAPENTIN 300 MG CAP PO SCH (20:55)
[2020-10-15] MEDS: REMDESIVIR 100 MG in SODIUM CHLORIDE 0.9% 230 ML IV SCH (20:55)
[2020-10-15] MEDS: rOPINIRole HCL 1 MG TABLET PO SCH (20:57)
[2020-10-15] MEDS: MONTELUKAST SODIUM 10 MG TABLET PO SCH (20:58)
[2020-10-15] MEDS: diphenhydrAMINE Capsule 25 MG CAP PO PRN (21:08)
[2020-10-15] MEDS: ACETAMINOPHEN 500 MG TAB PO PRN (21:08)
[2020-10-16] MEDS ORDERED: REMDESIVIR 100 MG in SODIUM CHLORIDE 0.9% 230 ML IV SCH (00:15)
[2020-10-16] MEDS: LEVOTHYROXINE SODIUM 50 MCG TABLET PO SCH (04:59)
[2020-10-16] MEDS: ESCITALOPRAM OXALATE 10 MG TAB PO SCH (07:36)
[2020-10-16] MEDS: POTASSIUM CHLORIDE 10 MEQ TABCR PO SCH (07:36)
[2020-10-16] MEDS: PANTOprazole 40 MG TAB PO SCH (07:36)
[2020-10-16] MEDS: CARBIDOPA/LEVODOPA 25/100MG TAB PO SCH ×2 (07:36→19:49)
[2020-10-16] MEDS: DOXYCYCLINE HYCLATE 100 MG CAP PO SCH ×2 (07:36→19:49)
[2020-10-16] MEDS: ENOXAPARIN INJ 40 MG/0.4 ML SYR SQ SCH (07:38)
[2020-10-16] MEDS: dexAMETHasone 6 MG in SYRINGE 0 ML IV SCH (07:38)
[2020-10-16] MEDS: ACETAMINOPHEN 325 MG TAB PO PRN (07:42)
[2020-10-16 08:50] LABS: Hematocrit (blood only) 35.9 % (37-47); Hemoglobin 11.8 g/dL (12.0-16.0); Immature Granulocytes # (auto) 0.02 K/uL (0.00-0.02); Immature Granulocytes % (auto) 0.3 %; Lymphocytes # (auto) 1.25 K/uL (1.2-3.4); Lymphocytes % (auto) 21.4 %; Mean Corpuscular Hemoglobin 31.1 pg (25-34); Mean Corpuscular Hgb Conc 32.9 g/dL (32-36); Mean Corpuscular Volume 94.7 fL (80-100); Mean Platelet Volume 9.7 fL (7.4-10.4); Monocytes # (auto) 0.31 K/uL (0.11-0.59); Monocytes % (auto) 5.3 %; Neutrophils # (auto) 4.25 K/uL (1.4-6.5); Platelet Count 208 K/uL (130-400); RDW Coefficient of Variation 14.2 % (11.5-14.5); RDW Standard Deviation 48.9 fL (36.4-46.3); Red Blood Count 3.79 M/uL (4.2-5.4); White Blood Count 5.83 K/uL (4.8-10.8)
[2020-10-16] MEDS: cefTRIAXone SODIUM 1,000 MG in DEXTROSE 5% 50 ML IV SCH (09:21)
[2020-10-16 09:27] LABS: BUN Creatinine Ratio 20.1 (10-20); Calcium 8.8 mg/dl (8.5-10.1); Creatinine Clr Calc Pharmacy 56.8 ml/min; Est GFR (African American) 98.7; Est GFR (Non-African American) 85.2; Magnesium 1.8 mg/dl (1.8-2.4); Potassium 3.6 mmol/L (3.5-5.1)
[2020-10-16] MEDS: LORazepam 1 MG TAB PO PRN (15:41)
--- NOTE | 2020-10-16 19:01 | Hospitalist Progress Note ---
Date of Service October 16, 2020 Assessment & Plan (1) COVID-19: Patient is an 80 yr female who presents with having fever at home and found to have COVID positive. Acute respiratory failure with hypoxia COVID-19 pneumonitis Leukopenia/lymphopenia --CT Chest: There is a 6 mm nodule within the left inferior breast which is technically indeterminate but does not represent an abscess. Follow-up nonemergent mammogram/ultrasound at a dedicated breast Center should be performed for further evaluation. A stable 6 mm groundglass nodule within the right middle lobe and a new 5 mm groundglass nodule within the right upper lobe as described above. A [address] follow-up is recommended to ensure stability. --SARS-Cov-2 RNA: Positive -Normal procalcitonin -Normal lactate levels -Continue remdesivir, dexamethasone as per protocol -Continue supplemental oxygen as needed -Wean off oxygen as able Hypokalemia Replete electrolytes as needed Normal magnesium levels Monitor electrolytes Abnormal UA R/O UTI Urine Cx: Gram-negative bacilli Blood cultures: No growth to date Continue Rocephin empirically Right Breast Erythematous Lesion Left breast nodule--incidental finding on CT scan H/O recurrent lesions B/L as per patient CT as above-- No obvious abscess Denies pain, itching Monitor Needs nonemergent mammogram as outpatient Right middle, right upper lung nodules CT as above Needs follow-up CT as outpatient Parkinson's Disease Continue carbidopa/levodopa. Depression/Anxiety Continue Escitalopram Ativan as needed Restless leg syndrome Continue Requip Hypothyroidism Continue levothyroxine GERD continue PPI H/O Hypophosphatemia Continue home supplements DVT Px: Lovenox SQ Code Status Full Code DISPOSITION: Expect discharge home when medically stable Admission and Anticipated Discharge Date Admission Date: October 15, 2020 Subjective Patient is seen and examined bedside States having headache earlier today which improved Less cough, dyspnea No other complaints Denies chest pain, dizziness, nausea, abdominal pain Still requiring minimal supplemental oxygen to maintain saturations Review of Systems Review of Systems: All systems reviewed & are unremarkable except as noted in HPI & below Physical Exam Physical Exam: Physical Exam: Vitals signs as noted above General Appearance:Moderately built and nourished, no apparent distress Head: normocephalic, Atraumatic Eyes: normal inspection, EOMI Neck: supple, Trachea midline Respiratory/Chest: Normal breath sounds, Minimal Basal Crackles, + Left breast fold erythematous lesion Cardiovascular: S1, S2, No murmur Abdomen/GI:Soft, Non tender, Bowel sounds present Extremities/Musculoskelatal:normal inspection, no edema Neurologic/Psych:AAOX3, grossly no focal neurological deficits Skin: normal color, warm Results & Data Results & Data ([facility]) Vital Signs (Past 12 Hours) Vital Signs Temp Pulse Resp BP Pulse Ox Pulse Ox 10/16/20 15:35 36.7 C 78 16 121/79 95 10/16/20 15:25 95 10/16/20 07:34 36.7 C 96 H 16 144/86 H 95 Laboratory Results Short CBC 10/16/20 Range/Units 06:42 WBC 5.83 (4.8-10.8) K/uL Hgb 11.8 L (12.0-16.0) g/dL Hct 35.9 L (37-47) % Plt Count 208 (130-400) K/uL BMP 10/16/20 06:42 Sodium 144 Potassium 3.6 D Chloride 112 H Carbon Dioxide 23 BUN 13 D Creatinine 0.62 Glucose 82 Calcium 8.8 Liver Function 10/16/20 Range/Units 06:42 AST 15 (15-37) U/L ALT 7 L (12-78) U/L
[2020-10-16] MEDS: REMDESIVIR 100 MG in SODIUM CHLORIDE 0.9% 230 ML IV SCH (19:49)
[2020-10-16] MEDS: MONTELUKAST SODIUM 10 MG TABLET PO SCH (19:49)
[2020-10-16] MEDS: GABAPENTIN 300 MG CAP PO SCH (19:50)
[2020-10-16] MEDS: rOPINIRole HCL 1 MG TABLET PO SCH (19:50)
[2020-10-16] MEDS: SODIUM CHLORIDE 0.9% 10ML FLUSH IV SCH (21:41)
[2020-10-16] MEDS: ACETAMINOPHEN 500 MG TAB PO PRN (21:46)
[2020-10-16] MEDS: diphenhydrAMINE Capsule 25 MG CAP PO PRN (21:47)
[2020-10-17] MEDS: LEVOTHYROXINE SODIUM 50 MCG TABLET PO SCH (03:26)
[2020-10-17 06:50] LABS: Hemoglobin 11.6 g/dL (12.0-16.0); Immature Granulocytes # (auto) 0.01 K/uL (0.00-0.02); Immature Granulocytes % (auto) 0.2 %; Lymphocytes # (auto) 1.47 K/uL (1.2-3.4); Lymphocytes % (auto) 29.3 %; Mean Corpuscular Hemoglobin 31.2 pg (25-34); Mean Corpuscular Hgb Conc 33.1 g/dL (32-36); Mean Corpuscular Volume 94.1 fL (80-100); Mean Platelet Volume 9.7 fL (7.4-10.4); Monocytes # (auto) 0.32 K/uL (0.11-0.59); Monocytes % (auto) 6.4 %; Neutrophils # (auto) 3.21 K/uL (1.4-6.5); Neutrophils % (auto) 64.1 %; Platelet Count 225 K/uL (130-400); RDW Coefficient of Variation 14.2 % (11.5-14.5); RDW Standard Deviation 49.5 fL (36.4-46.3); Red Blood Count 3.72 M/uL (4.2-5.4); White Blood Count 5.01 K/uL (4.8-10.8)
[2020-10-17 07:22] LABS: BUN Creatinine Ratio 26.6 (10-20); Calcium 8.5 mg/dl (8.5-10.1); Creatinine Clr Calc Pharmacy 60.8 ml/min; Est GFR (African American) 100.9; Est GFR (Non-African American) 87.1; Potassium 3.6 mmol/L (3.5-5.1)
[2020-10-17] MEDS: PANTOprazole 40 MG TAB PO SCH (07:56)
[2020-10-17] MEDS: ESCITALOPRAM OXALATE 10 MG TAB PO SCH (07:56)
[2020-10-17] MEDS: ERGOCALCIFEROL 50,000 UNITS 1250 MCG CAP PO SCH (07:56)
[2020-10-17] MEDS: CARBIDOPA/LEVODOPA 25/100MG TAB PO SCH ×2 (07:56→20:23)
[2020-10-17] MEDS: POTASSIUM CHLORIDE 10 MEQ TABCR PO SCH (07:56)
[2020-10-17] MEDS: dexAMETHasone 6 MG in SYRINGE 0 ML IV SCH (07:56)
[2020-10-17] MEDS: DOXYCYCLINE HYCLATE 100 MG CAP PO SCH ×2 (07:57→20:23)
[2020-10-17] MEDS: ENOXAPARIN INJ 40 MG/0.4 ML SYR SQ SCH (07:57)
[2020-10-17] MEDS: ONDANSETRON 4 MG OD TAB PO PRN (09:25)
[2020-10-17] MEDS: cefTRIAXone SODIUM 1,000 MG in DEXTROSE 5% 50 ML IV SCH (09:26)
[2020-10-17] MEDS: LORazepam 1 MG TAB PO PRN (16:12)
--- NOTE | 2020-10-17 17:34 | Hospitalist Progress Note ---
Date of Service October 17, 2020 Assessment & Plan (1) COVID-19: Patient is an 80 yr female who presents with having fever at home and found to have COVID positive. Acute respiratory failure with hypoxia COVID-19 pneumonitis Leukopenia/lymphopenia --CT Chest: There is a 6 mm nodule within the left inferior breast which is technically indeterminate but does not represent an abscess. Follow-up nonemergent mammogram/ultrasound at a dedicated breast Center should be performed for further evaluation. A stable 6 mm groundglass nodule within the right middle lobe and a new 5 mm groundglass nodule within the right upper lobe as described above. A [address] follow-up is recommended to ensure stability. --SARS-Cov-2 RNA: Positive -Normal procalcitonin -Normal lactate levels -Continue remdesivir, dexamethasone as per protocol -Continue supplemental oxygen as needed -Saturating well on room air Hypokalemia Replete electrolytes as needed Normal magnesium levels Monitor electrolytes UTI-POA Urine Cx: Klebsiella Blood cultures: No growth to date Continue Rocephin Right Breast Erythematous Lesion Left breast nodule--incidental finding on CT scan H/O recurrent lesions B/L as per patient CT as above-- No obvious abscess Denies pain, itching Monitor Needs nonemergent mammogram as outpatient Right middle, right upper lung nodules CT as above Needs follow-up CT as outpatient Parkinson's Disease Continue carbidopa/levodopa. Depression/Anxiety Continue Escitalopram Ativan as needed Restless leg syndrome Continue Requip Hypothyroidism Continue levothyroxine GERD continue PPI H/O Hypophosphatemia Continue home supplements DVT Px: Lovenox SQ Code Status Full Code DISPOSITION: Expect discharge home when medically stable Admission and Anticipated Discharge Date Admission Date: October 15, 2020 Subjective Patient is seen and examined bedside Cough persistent Denies dyspnea Was nauseous earlier today but resolved Also states having some indigestion but currently not interested in medications Denies chest pain, dizziness, nausea, abdominal pain Saturating well on room air " I feel Shaky " Review of Systems Review of Systems: All systems reviewed & are unremarkable except as noted in HPI & below Physical Exam Physical Exam: Physical Exam: Vitals signs as noted above General Appearance:Moderately built and nourished, no apparent distress Head: normocephalic, Atraumatic Eyes: normal inspection, EOMI Neck: supple, Trachea midline Respiratory/Chest: Normal breath sounds, Minimal Basal Crackles, + Left breast fold erythematous lesion Cardiovascular: S1, S2, No murmur Abdomen/GI:Soft, Non tender, Bowel sounds present Extremities/Musculoskelatal:normal inspection, no edema Neurologic/Psych:AAOX3, grossly no focal neurological deficits Skin: normal color, warm Results & Data Results & Data ([facility]) Vital Signs (Past 12 Hours) Vital Signs Temp Pulse Resp BP Pulse Ox 10/17/20 15:59 74 18 163/89 H 98 10/17/20 08:14 36.4 C L 74 16 155/84 H 96 Laboratory Results Short CBC 10/17/20 Range/Units 05:31 WBC 5.01 (4.8-10.8) K/uL Hgb 11.6 L (12.0-16.0) g/dL Hct 35.0 L (37-47) % Plt Count 225 (130-400) K/uL BMP 10/17/20 05:31 Sodium 140 Potassium 3.6 Chloride 109 H Carbon Dioxide 23 BUN 15 Creatinine 0.58 L Glucose 79 Calcium 8.5 Liver Function 10/17/20 Range/Units 05:31 AST 16 (15-37) U/L ALT 10 L (12-78) U/L
[2020-10-17] MEDS: GABAPENTIN 300 MG CAP PO SCH (20:22)
[2020-10-17] MEDS: REMDESIVIR 100 MG in SODIUM CHLORIDE 0.9% 230 ML IV SCH (20:23)
[2020-10-17] MEDS: rOPINIRole HCL 1 MG TABLET PO SCH (20:23)
[2020-10-17] MEDS: MONTELUKAST SODIUM 10 MG TABLET PO SCH (20:23)
[2020-10-17] MEDS: diphenhydrAMINE Capsule 25 MG CAP PO PRN (20:40)
[2020-10-17] MEDS: ACETAMINOPHEN 500 MG TAB PO PRN (20:41)
[2020-10-17] MEDS: SODIUM CHLORIDE 0.9% 10ML FLUSH IV SCH (21:37)
[2020-10-18] MEDS: LEVOTHYROXINE SODIUM 50 MCG TABLET PO SCH (04:25)
[2020-10-18 06:54] LABS: BUN Creatinine Ratio 28.3 (10-20); Calcium 8.4 mg/dl (8.5-10.1); Creatinine Clr Calc Pharmacy 61.8 ml/min; Est GFR (African American) 101.5; Est GFR (Non-African American) 87.6; Potassium 3.5 mmol/L (3.5-5.1)
[2020-10-18] MEDS: dexAMETHasone 6 MG in SYRINGE 0 ML IV SCH (08:56)
[2020-10-18] MEDS: DOXYCYCLINE HYCLATE 100 MG CAP PO SCH ×2 (08:56→20:13)
[2020-10-18] MEDS: POTASSIUM CHLORIDE 10 MEQ TABCR PO SCH (08:56)
[2020-10-18] MEDS: ENOXAPARIN INJ 40 MG/0.4 ML SYR SQ SCH (08:56)
[2020-10-18] MEDS: ESCITALOPRAM OXALATE 10 MG TAB PO SCH (08:56)
[2020-10-18] MEDS: PANTOprazole 40 MG TAB PO SCH (08:56)
[2020-10-18] MEDS: CARBIDOPA/LEVODOPA 25/100MG TAB PO SCH ×2 (08:56→20:14)
[2020-10-18] MEDS: cefTRIAXone SODIUM 1,000 MG in DEXTROSE 5% 50 ML IV SCH (09:01)
--- NOTE | 2020-10-18 19:28 | Hospitalist Progress Note ---
Date of Service October 18, 2020 Assessment & Plan (1) COVID-19: Patient is an 80 yr female who presents with having fever at home and found to have COVID positive. Acute respiratory failure with hypoxia COVID-19 pneumonitis Leukopenia/lymphopenia --CT Chest: There is a 6 mm nodule within the left inferior breast which is technically indeterminate but does not represent an abscess. Follow-up nonemergent mammogram/ultrasound at a dedicated breast Center should be performed for further evaluation. A stable 6 mm groundglass nodule within the right middle lobe and a new 5 mm groundglass nodule within the right upper lobe as described above. A [address] follow-up is recommended to ensure stability. --SARS-Cov-2 RNA: Positive -Normal procalcitonin -Normal lactate levels -To complete remdesivir course today -continue dexamethasone as per protocol -Weaned off of supplemental oxygen -Saturating well on room air -May need 2 step prior to discharge Hypokalemia Replete electrolytes as needed Normal magnesium levels Monitor electrolytes UTI-POA Urine Cx: Klebsiella Blood cultures: No growth to date Continue Rocephin--to complete course tomorrow Right Breast Erythematous Lesion Left breast nodule--incidental finding on CT scan H/O recurrent lesions B/L as per patient CT as above-- No obvious abscess Denies pain, itching Monitor Needs nonemergent mammogram as outpatient Right middle, right upper lung nodules CT as above Needs follow-up CT as outpatient Parkinson's Disease Continue carbidopa/levodopa. Depression/Anxiety Continue Escitalopram Ativan as needed Restless leg syndrome Continue Requip Hypothyroidism Continue levothyroxine GERD continue PPI H/O Hypophosphatemia Continue home supplements DVT Px: Lovenox SQ Code Status Full Code DISPOSITION: Expect discharge home when medically stable Admission and Anticipated Discharge Date Admission Date: October 15, 2020 Subjective Patient is seen and examined bedside No significant change from yesterday Intermittent cough Minimal dyspnea on exertion Denies chest pain, dizziness, nausea, abdominal pain Saturating well on room air Urine culture growing Klebsiella Review of Systems Review of Systems: All systems reviewed & are unremarkable except as noted in HPI & below Physical Exam Physical Exam: Physical Exam: Vitals signs as noted above General Appearance:Moderately built and nourished, no apparent distress Head: normocephalic, Atraumatic Eyes: normal inspection, EOMI Neck: supple, Trachea midline Respiratory/Chest: Normal breath sounds, CTA, + Left breast fold erythematous lesion Cardiovascular: S1, S2, No murmur Abdomen/GI:Soft, Non tender, Bowel sounds present Extremities/Musculoskelatal:normal inspection, no edema Neurologic/Psych:AAOX3, grossly no focal neurological deficits Skin: normal color, warm Results & Data Results & Data ([facility]) Vital Signs (Past 12 Hours) Vital Signs Temp Pulse Resp BP Pulse Ox 10/18/20 15:17 36.5 C 74 16 167/84 H 97 Laboratory Results [facility] 10/18/20 05:38 Sodium 141 Potassium 3.5 Chloride 109 H Carbon Dioxide 26 BUN 16 Creatinine 0.57 L Glucose 81 Calcium 8.4 L Liver Function 10/18/20 Range/Units 05:38 AST 26 (15-37) U/L ALT 19 (12-78) U/L
[2020-10-18] MEDS: MONTELUKAST SODIUM 10 MG TABLET PO SCH (20:13)
[2020-10-18] MEDS: rOPINIRole HCL 1 MG TABLET PO SCH (20:13)
[2020-10-18] MEDS: GABAPENTIN 300 MG CAP PO SCH (20:14)
[2020-10-18] MEDS: REMDESIVIR 100 MG in SODIUM CHLORIDE 0.9% 230 ML IV SCH (20:14)
[2020-10-18] MEDS: diphenhydrAMINE Capsule 25 MG CAP PO PRN (21:14)
[2020-10-18] MEDS: ONDANSETRON 4 MG OD TAB PO PRN (21:14)
[2020-10-18] MEDS: LORazepam 1 MG TAB PO PRN (21:14)
[2020-10-18] MEDS: ACETAMINOPHEN 500 MG TAB PO PRN (21:15)
[2020-10-18] MEDS: SODIUM CHLORIDE 0.9% 10ML FLUSH IV SCH (21:21)
[2020-10-19] MEDS: LEVOTHYROXINE SODIUM 50 MCG TABLET PO SCH (05:57)
[2020-10-19 07:52] LABS: BUN Creatinine Ratio 27.3 (10-20); Calcium 8.7 mg/dl (8.5-10.1); Creatinine Clr Calc Pharmacy 57.8 ml/min; Est GFR (African American) 99.2; Est GFR (Non-African American) 85.6; Magnesium 1.7 mg/dl (1.8-2.4); Potassium 3.4 mmol/L (3.5-5.1)
[2020-10-19] MEDS: dexAMETHasone 6 MG in SYRINGE 0 ML IV SCH (08:32)
[2020-10-19] MEDS: ENOXAPARIN INJ 40 MG/0.4 ML SYR SQ SCH (08:32)
[2020-10-19] MEDS: CARBIDOPA/LEVODOPA 25/100MG TAB PO SCH ×2 (08:32→20:23)
[2020-10-19] MEDS: PANTOprazole 40 MG TAB PO SCH (08:32)
[2020-10-19] MEDS: ESCITALOPRAM OXALATE 10 MG TAB PO SCH (08:32)
[2020-10-19] MEDS: POTASSIUM CHLORIDE 10 MEQ TABCR PO SCH (08:32)
[2020-10-19] MEDS: DOXYCYCLINE HYCLATE 100 MG CAP PO SCH ×2 (08:32→20:24)
[2020-10-19] MEDS ORDERED: POTASSIUM CHLORIDE CRTAB 20 MEQ TABCR PO ONE (09:07)
[2020-10-19] MEDS ORDERED: MAGNESIUM SULFATE / D5W 1 GM/100 ML BAG IV ONE (09:30)
[2020-10-19] MEDS: cefTRIAXone SODIUM 1,000 MG in DEXTROSE 5% 50 ML IV SCH (09:36)
--- NOTE | 2020-10-19 16:38 | Hospitalist Progress Note ---
Date of Service October 19, 2020 Assessment & Plan (1) COVID-19: Patient is an 80 yr female who presents with having fever at home and found to have COVID positive. Acute respiratory failure with hypoxia COVID-19 pneumonitis Leukopenia/lymphopenia --CT Chest: There is a 6 mm nodule within the left inferior breast which is technically indeterminate but does not represent an abscess. Follow-up nonemergent mammogram/ultrasound at a dedicated breast Center should be performed for further evaluation. A stable 6 mm groundglass nodule within the right middle lobe and a new 5 mm groundglass nodule within the right upper lobe as described above. A [address] follow-up is recommended to ensure stability. --SARS-Cov-2 RNA: Positive -Normal procalcitonin -Normal lactate levels -Completed remdesivir course for 5 days -continue dexamethasone as per protocol -Saturating low 90s on room air -May need 2 step prior to discharge Hypokalemia Hypomagnesemia Replete electrolytes as needed Monitor UTI-POA Urine Cx: Klebsiella Blood cultures: No growth to date Received Rocephin Right Breast Erythematous Lesion Left breast nodule--incidental finding on CT scan H/O recurrent lesions B/L as per patient CT as above-- No obvious abscess Denies pain, itching Monitor Needs nonemergent mammogram as outpatient Right middle, right upper lung nodules CT as above Needs follow-up CT as outpatient Parkinson's Disease Continue carbidopa/levodopa. Depression/Anxiety Continue Escitalopram Ativan as needed Restless leg syndrome Continue Requip Hypothyroidism Continue levothyroxine GERD continue PPI H/O Hypophosphatemia Continue home supplements DVT Px: Lovenox SQ Code Status Full Code DISPOSITION: Expect discharge home when medically stable Admission and Anticipated Discharge Date Admission Date: October 15, 2020 Subjective Patient is seen and examined bedside Saturating low 90s on room air Anxious about her being ill with Covid as well Less cough Denies dyspnea Denies chest pain, dizziness, nausea, abdominal pain Review of Systems Review of Systems: All systems reviewed & are unremarkable except as noted in HPI & below Physical Exam Physical Exam: Physical Exam: Vitals signs as noted above General Appearance:Moderately built and nourished, no apparent distress Head: normocephalic, Atraumatic Eyes: normal inspection, EOMI Neck: supple, Trachea midline Respiratory/Chest: Normal breath sounds, CTA, + Left breast fold erythematous lesion Cardiovascular: S1, S2, No murmur Abdomen/GI:Soft, Non tender, Bowel sounds present Extremities/Musculoskelatal:normal inspection, no edema Neurologic/Psych:AAOX3, grossly no focal neurological deficits Skin: normal color, warm Results & Data Results & Data [facility]) Vital Signs (Past 12 Hours) Vital Signs Temp Pulse Resp BP Pulse Ox 10/19/20 15:42 36.3 C L 81 16 132/83 93 10/19/20 07:29 36.6 C 68 16 153/76 H 92 Laboratory Results [facility] 10/19/20 06:17 Sodium 140 Potassium 3.4 L Chloride 107 Carbon Dioxide 25 BUN 17 Creatinine 0.61 Glucose 75 Calcium 8.7 Liver Function 10/19/20 Range/Units 06:17 AST 19 (15-37) U/L ALT 20 (12-78) U/L
[2020-10-19] MEDS: MONTELUKAST SODIUM 10 MG TABLET PO SCH (20:22)
[2020-10-19] MEDS: GABAPENTIN 300 MG CAP PO SCH (20:23)
[2020-10-19] MEDS: rOPINIRole HCL 1 MG TABLET PO SCH (20:24)
[2020-10-19] MEDS: LORazepam 1 MG TAB PO PRN (20:28)
[2020-10-19] MEDS: ACETAMINOPHEN 500 MG TAB PO PRN (21:25)
[2020-10-19] MEDS: diphenhydrAMINE Capsule 25 MG CAP PO PRN (21:25)
[2020-10-20] MEDS: LEVOTHYROXINE SODIUM 50 MCG TABLET PO SCH (05:48)
[2020-10-20 08:04] LABS: Hemoglobin 12.5 g/dL (12.0-16.0); Mean Corpuscular Hemoglobin 30.8 pg (25-34); Mean Corpuscular Hgb Conc 32.9 g/dL (32-36); Mean Corpuscular Volume 93.6 fL (80-100); Mean Platelet Volume 9.6 fL (7.4-10.4); Platelet Count 260 K/uL (130-400); RDW Coefficient of Variation 13.9 % (11.5-14.5); RDW Standard Deviation 47.5 fL (36.4-46.3); Red Blood Count 4.06 M/uL (4.2-5.4); White Blood Count 4.75 K/uL (4.8-10.8)
[2020-10-20 08:35] LABS: BUN Creatinine Ratio 24.4 (10-20); Creatinine Clr Calc Pharmacy 55.9 ml/min; Est GFR (African American) 98.2; Est GFR (Non-African American) 84.7; Magnesium 2.1 mg/dl (1.8-2.4); Potassium 3.7 mmol/L (3.5-5.1)
[2020-10-20] MEDS: DOXYCYCLINE HYCLATE 100 MG CAP PO SCH ×2 (08:37→21:10)
[2020-10-20] MEDS: dexAMETHasone 6 MG in SYRINGE 0 ML IV SCH (08:37)
[2020-10-20] MEDS: POTASSIUM CHLORIDE 10 MEQ TABCR PO SCH (08:37)
[2020-10-20] MEDS: ESCITALOPRAM OXALATE 10 MG TAB PO SCH (08:37)
[2020-10-20] MEDS: ENOXAPARIN INJ 40 MG/0.4 ML SYR SQ SCH (08:37)
[2020-10-20] MEDS: CARBIDOPA/LEVODOPA 25/100MG TAB PO SCH ×2 (08:37→21:10)
[2020-10-20] MEDS: ERGOCALCIFEROL 50,000 UNITS 1250 MCG CAP PO SCH (08:37)
[2020-10-20] MEDS: PANTOprazole 40 MG TAB PO SCH (08:37)
--- NOTE | 2020-10-20 08:41 | XRay Report ---
SINGLE VIEW CHEST CLINICAL HISTORY: Covid. FINDINGS: An AP, portable, upright chest radiograph is compared to study dated 10/14/2020 and correla zeferino with chest CT dated 10/15/2020. The examination is degraded by portable technique and patient rot ation. The heart is mildly enlarged noting atherosclerotic calcification of the thoracic aorta. The p ulmonary vasculature is noncongested. Chronic interstitial thickening is similar to previous. There i s mild bibasilar scarring/atelectasis. No airspace consolidation or large pleural effusion is identif ied. Apical scarring is observed. No pneumothorax is seen. The skeletal structures are osteopenic. Th e bony thorax is grossly intact. Degenerative change and scoliosis are noted in the spine. Cholecyste ctomy clips are noted in the right upper quadrant. IMPRESSION: Mild cardiac enlargement with no acute cardiopulmonary abnormality. ACT 112: Negative or not required by law. Electronically signed by: Gideon Haynes M.D. 10/20/2020 8:40 AM
[2020-10-20] MEDS: FAMOTIDINE 10 MG TABLET PO SCH ×2 (10:32→21:10)
--- NOTE | 2020-10-20 18:01 | Hospitalist Progress Note ---
Date of Service October 20, 2020 Assessment & Plan (1) COVID-19: Patient is an 80 yr female who presents with having fever at home and found to have COVID positive. Acute respiratory failure with hypoxia COVID-19 pneumonitis Leukopenia/lymphopenia --CT Chest: There is a 6 mm nodule within the left inferior breast which is technically indeterminate but does not represent an abscess. Follow-up nonemergent mammogram/ultrasound at a dedicated breast Center should be performed for further evaluation. A stable 6 mm groundglass nodule within the right middle lobe and a new 5 mm groundglass nodule within the right upper lobe as described above. A [address] follow-up is recommended to ensure stability. --SARS-Cov-2 RNA: Positive -Normal procalcitonin -Normal lactate levels -Completed remdesivir course for 5 days -continue dexamethasone as per protocol -Saturating low 90s on room air -May need 2 step prior to discharge -Slowly improving -Appetite improved -Continue current medications Hypokalemia Hypomagnesemia Replete electrolytes as needed Monitor UTI-POA Urine Cx: Klebsiella Blood cultures: No growth to date Completed Rocephin course Right Breast Erythematous Lesion Left breast nodule--incidental finding on CT scan H/O recurrent lesions B/L as per patient CT as above-- No obvious abscess Denies pain, itching Monitor Needs nonemergent mammogram as outpatient Right middle, right upper lung nodules CT as above Needs follow-up CT as outpatient Parkinson's Disease Continue carbidopa/levodopa. Depression/Anxiety Continue Escitalopram Ativan as needed Restless leg syndrome Continue Requip Hypothyroidism Continue levothyroxine GERD continue PPI H/O Hypophosphatemia Continue home supplements DVT Px: Lovenox SQ Code Status Full Code DISPOSITION: Expect discharge home when medically stable Admission and Anticipated Discharge Date Admission Date: October 15, 2020 Subjective Patient is seen and examined bedside Reports nausea but no vomiting Less dyspnea, cough today States having some chest discomfort with cough Feels very weak and tired Offers no other complaints Review of Systems Review of Systems: All systems reviewed & are unremarkable except as noted in HPI & below Physical Exam Physical Exam: Physical Exam: Vitals signs as noted above General Appearance:Moderately built and nourished, no apparent distress Head: normocephalic, Atraumatic Eyes: normal inspection, EOMI Neck: supple, Trachea midline Respiratory/Chest: Normal breath sounds, CTA, + Left breast fold erythematous lesion Cardiovascular: S1, S2, No murmur Abdomen/GI:Soft, Non tender, Bowel sounds present Extremities/Musculoskelatal:normal inspection, no edema Neurologic/Psych:AAOX3, grossly no focal neurological deficits Skin: normal color, warm Results & Data Results & Data ([facility]) Vital Signs (Past 12 Hours) Vital Signs Temp Pulse Resp BP Pulse Ox 10/20/20 15:44 36.8 C 84 18 130/78 94 10/20/20 07:20 36.5 C 71 16 152/79 H 93 Laboratory Results Short CBC 10/20/20 Range/Units 06:18 WBC 4.75 L (4.8-10.8) K/uL Hgb 12.5 (12.0-16.0) g/dL Hct 38.0 (37-47) % Plt Count 260 (130-400) K/uL BMP 10/20/20 06:18 Sodium 138 Potassium 3.7 Chloride 106 Carbon Dioxide 26 BUN 15 Creatinine 0.63 Glucose 70 Calcium 9.0
[2020-10-20] MEDS: MONTELUKAST SODIUM 10 MG TABLET PO SCH (21:10)
[2020-10-20] MEDS: rOPINIRole HCL 1 MG TABLET PO SCH (21:10)
[2020-10-20] MEDS: GABAPENTIN 300 MG CAP PO SCH (21:10)
[2020-10-20] MEDS: diphenhydrAMINE Capsule 25 MG CAP PO PRN (21:17)
[2020-10-20] MEDS: ACETAMINOPHEN 500 MG TAB PO PRN (21:17)
[2020-10-20] MEDS: LORazepam 1 MG TAB PO PRN (21:18)
[2020-10-21] MEDS: LEVOTHYROXINE SODIUM 50 MCG TABLET PO SCH (06:27)
[2020-10-21 08:44] LABS: BUN Creatinine Ratio 34.4 (10-20); Calcium 8.7 mg/dl (8.5-10.1); Creatinine Clr Calc Pharmacy 59.7 ml/min; Est GFR (African American) 100.3; Est GFR (Non-African American) 86.6; Potassium 3.6 mmol/L (3.5-5.1)
[2020-10-21] MEDS: dexAMETHasone 6 MG in SYRINGE 0 ML IV SCH (08:46)
[2020-10-21] MEDS: PANTOprazole 40 MG TAB PO SCH (08:46)
[2020-10-21] MEDS: DOXYCYCLINE HYCLATE 100 MG CAP PO SCH (08:46)
[2020-10-21] MEDS: POTASSIUM CHLORIDE 10 MEQ TABCR PO SCH (08:46)
[2020-10-21] MEDS: FAMOTIDINE 10 MG TABLET PO SCH (08:46)
[2020-10-21] MEDS: CARBIDOPA/LEVODOPA 25/100MG TAB PO SCH (08:46)
[2020-10-21] MEDS: ESCITALOPRAM OXALATE 10 MG TAB PO SCH (08:46)
[2020-10-21] MEDS: ENOXAPARIN INJ 40 MG/0.4 ML SYR SQ SCH (08:47)
[2020-10-21] MEDS: LORazepam 1 MG TAB PO PRN (14:49)
[2020-10-21] MEDS: ACETAMINOPHEN 325 MG TAB PO PRN (16:49)
--- NOTE | 2020-10-21 20:54 | Hospitalist Progress Note ---
Date of Service October 21, 2020 Assessment & Plan (1) COVID-19: Patient is an 80 yr female who presents with having fever at home and found to have COVID positive. Acute respiratory failure with hypoxia COVID-19 pneumonitis Leukopenia/lymphopenia --CT Chest: There is a 6 mm nodule within the left inferior breast which is technically indeterminate but does not represent an abscess. Follow-up nonemergent mammogram/ultrasound at a dedicated breast Center should be performed for further evaluation. A stable 6 mm groundglass nodule within the right middle lobe and a new 5 mm groundglass nodule within the right upper lobe as described above. A [address] follow-up is recommended to ensure stability. --SARS-Cov-2 RNA: Positive -Normal procalcitonin -Normal lactate levels -Completed remdesivir course for 5 days -Continue dexamethasone as per protocol -Weaned off of supplemental oxygen -2 Step: Did not qualify for oxygen -Plan to discharge home in next 24 to 48 hours Hypokalemia Hypomagnesemia Replete electrolytes as needed Monitor UTI-POA Urine Cx: Klebsiella Blood cultures: No growth to date Completed Rocephin course Right Breast Erythematous Lesion Left breast nodule--incidental finding on CT scan H/O recurrent lesions B/L as per patient CT as above-- No obvious abscess Denies pain, itching Monitor Needs nonemergent mammogram as outpatient Right middle, right upper lung nodules CT as above Needs follow-up CT as outpatient Parkinson's Disease Continue carbidopa/levodopa. Depression/Anxiety Continue Escitalopram Ativan as needed Restless leg syndrome Continue Requip Hypothyroidism Continue levothyroxine GERD continue PPI H/O Hypophosphatemia Continue home supplements DVT Px: Lovenox SQ Code Status Full Code DISPOSITION: Expect discharge home as able Admission and Anticipated Discharge Date Admission Date: October 15, 2020 Subjective Patient is seen and examined bedside Very tearful during my encounter, as her hospitalized with Covid deteriorating States feeling very tired Denies cough, dyspnea, chest pain, nausea, abdominal pain Saturating well on room air 2 step: Did not qualify for oxygen Physical Exam Physical Exam: Physical Exam: Vitals signs as noted above General Appearance:Moderately built and nourished, no apparent distress Head: normocephalic, Atraumatic Eyes: normal inspection, EOMI Neck: supple, Trachea midline Respiratory/Chest: Normal breath sounds, CTA, + Left breast fold erythematous lesion Cardiovascular: S1, S2, No murmur Abdomen/GI:Soft, Non tender, Bowel sounds present Extremities/Musculoskelatal:normal inspection, no edema Neurologic/Psych:AAOX3, grossly no focal neurological deficits Skin: normal color, warm Results & Data Results & Data ([facility]) Vital Signs (Past 12 Hours) Vital Signs Temp Pulse Pulse Pulse Pulse Resp Resp 10/21/20 17:29 36.6 C 72 18 10/21/20 12:10 93 H 94 H 80 18 Resp Resp BP Pulse Ox Pulse Ox Pulse Ox Pulse Ox 10/21/20 17:29 123/75 96 10/21/20 12:10 18 16 95 97 93
[2020-10-21] MEDS ORDERED: LORazepam 1 MG TAB PO PRN (22:05)
[2020-10-22] MEDS: MONTELUKAST SODIUM 10 MG TABLET PO SCH (00:06)
[2020-10-22] MEDS: rOPINIRole HCL 1 MG TABLET PO SCH (00:06)
[2020-10-22] MEDS: CARBIDOPA/LEVODOPA 25/100MG TAB PO SCH ×2 (00:06→09:27)
[2020-10-22] MEDS: GABAPENTIN 300 MG CAP PO SCH (00:06)
[2020-10-22] MEDS: FAMOTIDINE 10 MG TABLET PO SCH ×2 (00:07→09:27)
[2020-10-22] MEDS: DOXYCYCLINE HYCLATE 100 MG CAP PO SCH (00:07)
[2020-10-22] MEDS: ACETAMINOPHEN 500 MG TAB PO PRN (00:30)
[2020-10-22] MEDS: diphenhydrAMINE Capsule 25 MG CAP PO PRN (00:30)
[2020-10-22] MEDS: LEVOTHYROXINE SODIUM 50 MCG TABLET PO SCH (06:32)
[2020-10-22] MEDS: dexAMETHasone 6 MG in SYRINGE 0 ML IV SCH (06:59)
[2020-10-22 07:14] LABS: Hematocrit (blood only) 36.9 % (37-47); Hemoglobin 12.4 g/dL (12.0-16.0); Mean Corpuscular Hemoglobin 31.6 pg (25-34); Mean Corpuscular Hgb Conc 33.6 g/dL (32-36); Mean Corpuscular Volume 94.1 fL (80-100); Mean Platelet Volume 9.6 fL (7.4-10.4); Platelet Count 277 K/uL (130-400); RDW Standard Deviation 47.9 fL (36.4-46.3); Red Blood Count 3.92 M/uL (4.2-5.4); White Blood Count 6.11 K/uL (4.8-10.8)
[2020-10-22 07:50] LABS: BUN Creatinine Ratio 31.5 (10-20); Calcium 8.9 mg/dl (8.5-10.1); Creatinine Clr Calc Pharmacy 52.6 ml/min; Est GFR (African American) 96.2; Magnesium 1.9 mg/dl (1.8-2.4); Potassium 3.5 mmol/L (3.5-5.1)
[2020-10-22] MEDS ORDERED: dexAMETHasone 1 MG TAB PO ONE (08:00)
[2020-10-22] MEDS: POTASSIUM CHLORIDE 10 MEQ TABCR PO SCH (09:26)
[2020-10-22] MEDS: ESCITALOPRAM OXALATE 10 MG TAB PO SCH (09:26)
[2020-10-22] MEDS: ENOXAPARIN INJ 40 MG/0.4 ML SYR SQ SCH (09:27)
[2020-10-22] MEDS: PANTOprazole 40 MG TAB PO SCH (09:27)
--- NOTE | 2020-10-22 10:57 | Discharge Summary ---
Date of Service October 22, 2020 Admission HPI Per Admitting Provider 80-year-old female with past medical history significant for Parkinson's disease, hypothyroidism, hypopotassemia , hyperlipidemia, history of CVA, GERD, anxiety, insomnia, depression, history of spinal stenosis, status post lumbar spine surgery. Lives with her and son, was brought in because of fever. One of the patient's son has COVID. He lives across their house. Today the patient was sitting in a chair and felt chills and her granddaughter checked temperature, it was 100 degrees and she was advised to come to the hospital. She has occasional cough, but nothing unusual. Denies any shortness of breath, no chest pain. Has some headache. No blurred vision, no earache, Attributes her headache to fall in the spring. No blurred visions. No earache, no runny nose, no sore throat, no loss of sense of smell or taste. Appetite is not that great. No nausea, no abdominal pain. Normal bowel and bladder movements. Complains of pain in the lower extremities from her arthritis. She says she ambulates without any support. Her oxygen was 90% on room air with oxygen supplementation it isin high 90s. Currently resting comfortably and hemodynamically stable. Admission Exam Per Admitting Provider PHYSICAL EXAMINATION: GENERAL: The patient is of moderate build, not in acute distress. VITAL SIGNS: Temperature 37.5, pulse 104, respiratory rate 17, blood pressure 146/88, oxygen 96% on 2 liters. HEENT: Pupils equal, round, reactive to light. Oral mucosa dry. NECK: No neck masses seen. CARDIOVASCULAR: S1, S2 heard, regular rate and rhythm, no murmur, no gallop. RESPIRATORY SYSTEM: Normal AP diameter. No accessory muscle use. No wheezing, no crackles. ABDOMEN: Soft, bowel sounds present, nontender. No distention. CENTRAL NERVOUS SYSTEM: Cranial nerves II through XII grossly intact, nonfocal. EXTREMITIES: No edema, no erythema. Principal Diagnosis Acute respiratory failure with hypoxia COVID-19 pneumonitis Hypokalemia Hypomagnesemia UTI-Urine Cx: Klebsiella Right Breast Erythematous Lesion Left breast nodule--incidental finding on CT scan Right middle, right upper lung nodules Parkinson's Disease Depression/Anxiety Restless leg syndrome Hypothyroidism GERD Discharge Exam ROS-No Headache, No Visual Changes, No Nausea, No Vomiting, No Fever, No Chills, No Neck Pain or Stiffness, No Chest Pain, No Palpitations, No SOB, No SANCHEZ, No Cough, No Sputum, No Wheezing, No Abdominal Pain, No Diarrhea, No Hematemesis, No Hemoptysis, No Unexpected Weight Loss, No Flank pain, No Melena, No Hematochezia, No Frequency, No Urgency, No Burning, No Hematuria, No Rashes, No Diaphoresis. Appetite is Normal Physical Exam Gen-AAO x 3, NAD, Afebrile Head-NCAT, EOMI, PERRLA, Anicteric Sclera, No Posterior Pharyngeal Erythema Neck-Supple, No JVD, No Thyromegaly, No Masses, No LAD, No Bruits Lungs-Clear to Auscultation Bilaterally, No Rales, No Rhonchi, No Wheezing, No Crepitus Chest-No S4, +S1, +S2, No S3, No Murmurs, No Rubs, No Gallops, No Ectopy Abdomen-Soft, Bowel Sounds Present, Non Tender, Non Distended, No Hepatomegaly, No Splenomegaly, No Palpable Masses, No Rebound, No Rigidity, No Guarding Musculoskeletal-Full Range of Motion Bilaterally, No CVAT Extremities-No Cyanosis, No Clubbing, No Edema Nuero-Cranial Nerves II-XII grossly intact, Motor WNL, DTRs WNL, Strength WNL, Non Focal Psych-Normal Mood Discharge Data Allergies Allergy/AdvReac Type Severity Reaction Status Date / Time cyclobenzaprine Allergy Severe ANAPHYLAXIS Verified 10/14/20 21:44 Sulfa (Sulfonamide Allergy Severe Shortness Verified 10/14/20 21:44 Antibiotics) of Breath, Rash tolterodine AdvReac Mild DRY MOUTH Verified 10/14/20 21:44 Consultations 10/14/20 23:01 ED Decision to Admit Stat 10/15/20 01:41 Consult Case Management - Discharge Planning Routine Ordered Studies 10/15/20 09:35 CT chest diagnostic w con Urgent Current Diagnoses COVID-19 (10/15/20) Allergies cyclobenzaprine Allergy (Severe, Verified 10/14/20 21:44) ANAPHYLAXIS Sulfa (Sulfonamide Antibiotics) Allergy (Severe, Verified 10/14/20 21:44) Shortness of Breath, Rash tolterodine Adverse Reaction (Mild, Verified 10/14/20 21:44) DRY MOUTH Height/Weight/Isolation Height 4 ft 11 in Weight 59.6 kg Isolation Type COVID Precautions Chemistry 10/21/20 10/22/20 06:06 05:49 Sodium 138 141 Potassium 3.6 3.5 Chloride 106 107 Carbon Dioxide 24 27 Anion Gap 8.0 7.0 BUN 20 H 21 H Creatinine 0.59 L 0.67 Glucose 72 75 Microbiology 10/14/20 21:20 Blood Aerobic Blood Culture - Final No growth in Aerobic bottle after 5 days. 10/14/20 21:20 Blood Anaerobic Blood Culture - Final No growth in Anaerobic bottle after 5 days. 10/14/20 21:20 Blood Aerobic Blood Culture - Final No growth in Aerobic bottle after 5 days. 10/14/20 21:20 Blood Anaerobic Blood Culture - Final No growth in Anaerobic bottle after 5 days. Hospital Course (1) COVID-19: Patient is an 80 yr female who presents with having fever at home and found to have COVID positive. Acute respiratory failure with hypoxia COVID-19 pneumonitis Leukopenia/lymphopenia --CT Chest: There is a 6 mm nodule within the left inferior breast which is technically indeterminate but does not represent an abscess. Follow-up nonemergent mammogram/ultrasound at a dedicated breast Center should be performed for further evaluation. A stable 6 mm groundglass nodule within the right middle lobe and a new 5 mm groundglass nodule within the right upper lobe as described above. A [address] follow-up is recommended to ensure stability. --SARS-Cov-2 RNA: Positive -Normal procalcitonin -Normal lactate level -Continue dexamethasone for a total of 10 days -Weaned off of supplemental oxygen -2 Step: Did not qualify for oxygen -Plan to discharge today Hypokalemia Hypomagnesemia UTI-POA Urine Cx: Klebsiella Blood cultures: No growth to date Completed Rocephin course Right Breast Erythematous Lesion Left breast nodule--incidental finding on CT scan H/O recurrent lesions B/L as per patient CT as above-- No obvious abscess Denies pain, itching Monitor Needs nonemergent mammogram as outpatient Right middle, right upper lung nodules CT as above Needs follow-up CT as outpatient Parkinson's Disease Continue carbidopa/levodopa. Depression/Anxiety Continue Escitalopram Restless leg syndrome Continue Requip Hypothyroidism Continue levothyroxine GERD continue PPI H/O Hypophosphatemia Continue home supplements DISPOSITION: Discharge home as able Total Time Total Time Spent Total Time Spent (In Minutes): 45 mins Total Time Includes: Examination of the Patient, Discharge Planning, Medication Reconciliation and Communication With Other Providers Discharge Plan Discharge Items Patient Disposition: Home - Self-Care Reason For Visit: FEVER Discharge Diagnosis: Acute respiratory failure with hypoxia COVID-19 pneumonitis Hypokalemia Hypomagnesemia UTI-Urine Cx: Klebsiella Right Breast Erythematous Lesion Left breast nodule--incidental finding on CT scan Right middle, right upper lung nodules Parkinson's Disease Depression/Anxiety Restless leg syndrome Hypothyroidism GERD Condition on Discharge: Good Health Concerns: Worsening symptoms Activity: Per Instructions section Activity Comment: Increase activity as tolerated Lifting: Gradually increase as tolerated Bathing: No limitations Exercise/Sports: As tolerated Driving/Machine Use: Resume after seen by your family Weightbearing: Full weightbearing Non-emergency contact: Primary Care Provider Call non-emergency contact if: you have any medication questions and your symptoms worsen Follow-up/Referrals: Tracey Vides PA-C [Primary Care Provider] - (Date & Time 10/24/2020 11:10 AM Provider Vika Castellanos Department [facility] PLEASE NOTE THAT THIS IS A TELEPHONE APPOINTMENT. YOUR PROVIDER WILL CALL YOU AT THE APPOINTMENT TIME. IF YOU HAVE ANY QUESTIONS, PLEASE CALL .) Diet: Regular Addtl Attending Provider Instructions: Nonemergent mammogram/ultrasound at a dedicated breast Center should be performed for further evaluation. A Nodule within the right middle lobe of the lung and a new 5 mm groundglass nodule within the right upper lobe, we recommend a [address] follow-up to ensure stability. Pending Studies at Discharge: No Stand-Alone Forms: [employer], Smoking Cessation Medications and DC Order Prescriptions: New potassium chloride [Klor-Con M10] 10 mEq Tablet,Er Particles/Crystals 10 meq PO Q24H Qty: 30 RF: 0 famotidine [Acid Product Safety Professional (famotidine)] 10 mg Tablet 10 mg PO BID Qty: 60 RF: 0 dexamethasone 6 mg tablet 6 mg PO DAILY Qty: 3 RF: 0 Continued ropinirole 1 mg Tablet 1 mg PO HS RF: 0 omeprazole 40 mg Capsule,Delayed Release(Dr/Ec) 40 mg PO QAM RF: 0 levothyroxine 50 mcg tablet 50 mcg PO QAM RF: 0 docusate sodium 100 mg Capsule 100 mg PO BID PRN (Reason: Constipation) RF: 0 montelukast 10 mg Tablet 10 mg PO QAM RF: 0 lorazepam 1 mg tablet 1 - 2 mg PO DAILY PRN (Reason: Anxiety/Insomnia) RF: 0 carbidopa-levodopa 25-100 mg Tablet 1 tab PO BID RF: 0 escitalopram oxalate 10 mg tablet 10 mg PO QAM RF: 0 cholecalciferol (vitamin D3) 50,000 unit capsule 50,000 unit PO 2XWK RF: 0 diphenhydramine-acetaminophen [Tylenol PM Extra Strength] 25-500 mg Tablet 1 tab PO HS PRN (Reason: Sleep) RF: 0 ondansetron HCl 4 mg tablet 4 mg PO Q8H PRN (Reason: Nausea) RF: 0 gabapentin 300 mg capsule 300 mg PO HS RF: 0 Discharge Orders: Discharge Order (Routine); Ordered 10/22/20 Ordered By: Skip Flores/Other Patient Handouts: 2019-nCoV, COVID-19 Home Care, COVID-19 Make Face Mask Admission Data Admit Date/Time: 10/15/20 00:18 Attending Provider: Skip Vasquez Admit Provider: Brandon Schwarz Primary Care Provider: Tracey Vides Other Providers: Brandon Schwarz
== END 2020-10-22 14:07 | disposition home or self-care (01) | DRG 177 ==
LOC: ED 20:39 → 3E 10-15 00:18 → SUATTDRO 10-15 00:18 → 3E 10-15 01:22

== ENCOUNTER 2020-11-07 21:10 | Inpatient (IN) ==
[2020-11-07] MEDS ORDERED: SODIUM CHLORIDE 0.9% 500 ML IV ONE (21:53)
[2020-11-07] MEDS ORDERED: ACETAMINOPHEN 500 MG TAB PO STA (21:58)
--- NOTE | 2020-11-07 21:58 | Emergency Department Note ---
History of Present Illness General Chief complaint: Fever Stated complaint: FEVER 102, COVID Time Seen by Provider: 11/07/20 21:39 Source: patient and family (Son who is at the bedside) Mode of arrival: ambulatory Limitations: no limitations History of Present Illness This patient was brought in by her son after she had fever and chills and shakiness with a temperature 102 at home. He thought she might be a little short of breath as well. She was diagnosed with Covid over 3 weeks ago on October 14 he said that she was doing better until today. Her did of Covid recently. She told me she did have some diarrhea and he is not sure if she has been keeping up with her fluids she was diffusely weak though she has minimal complaints at present. She says she feels slightly short of breath she may have some slight abdominal pain at times. No dysuria. No fall or trauma. No headache neck pain or stiffness. Home Medications Medication Instructions Recorded Confirmed Type carbidopa-levodopa 1 tab PO BID 03/02/19 11/07/20 History cholecalciferol (vitamin D3) 50,000 unit PO 2XWK 03/02/19 11/07/20 History docusate sodium 100 mg PO BID PRN 03/02/19 11/07/20 History escitalopram oxalate 10 mg PO QAM 03/02/19 11/07/20 History levothyroxine 50 mcg PO QAM 03/02/19 11/07/20 History lorazepam 1 - 2 mg PO DAILY PRN 03/02/19 11/07/20 History montelukast 10 mg PO QAM 03/02/19 11/07/20 History omeprazole 40 mg PO QAM 03/02/19 11/07/20 History ropinirole 1 mg PO HS 03/02/19 11/07/20 History diphenhydramine-acetaminophen 1 tab PO HS PRN 12/16/19 11/07/20 History [Tylenol PM Extra Strength] ondansetron HCl 4 mg PO Q8H PRN 10/14/20 11/07/20 History gabapentin 300 mg PO HS 10/15/20 11/07/20 History famotidine [Acid Personal Attendant 10 mg PO BID #60 tab 10/22/20 11/07/20 Rx (famotidine)] potassium chloride [Klor-Con M10] 10 meq PO Q24H #30 tab 10/22/20 11/07/20 Rx Allergies Allergy/AdvReac Type Severity Reaction Status Date / Time cyclobenzaprine Allergy Severe ANAPHYLAXIS Verified 11/07/20 22:30 Sulfa (Sulfonamide Allergy Severe Shortness Verified 11/07/20 22:30 Antibiotics) of Breath, Rash tolterodine AdvReac Mild DRY MOUTH Verified 11/07/20 22:30 Past Med/Surg History Medical History (Updated 11/08/20 @ 00:50 by Jason Aragon MD) GERD (gastroesophageal reflux disease) Hyperlipidemia Hypothyroidism Lung nodule Mitral valve prolapse No significant family history Surgical History S/P cholecystectomy S/P hysterectomy Social History Smoking Status: Unknown if ever smoked Second Hand Exposure: No; Hx Alcohol Use: No Hx Substance Use: No Preferred Language: Spanish Communication Ability: Effective Web Sizer Required: No Beliefs That Will Affect Care: None Current Living Situation: Spouse Feels Safe at Home: Yes Assistive Devices: Denture - Upper and Denture - Lower Review of Systems A total of 10 systems reviewed and were otherwise negative Physical Exam Vital Signs Vital Signs - 24 hr 11/07/20 21:17 11/07/20 21:45 11/07/20 21:47 Temperature 37.6 C H 38.1 C H Temperature Source Temporal Artery Scan Oral Pulse Rate 109 H Pulse Rate [Apical] 101 H Pulse Rate from SpO2 Sensor Respiratory Rate 22 18 Respiratory Effort / Characteristics Non-Labored Spontaneous Respiratory Depth Normal Blood Pressure 131/67 Blood Pressure [Right Arm] 147/74 H Blood Pressure Mean 88 Blood Pressure Mean [Right Arm] 98 Pulse Oximetry 92 91 91 Oxygen Delivery Method Room Air Room Air Room Air Oxygen Flow Rate Sepsis Recent Fever Within 48 Hours Yes Sepsis New/Unexplained Change in Mental Status No Sepsis Action Taken by Nursing No Action Required Oxygen Flow Rate - Titration Pulse Oximetry Post Tiitration 11/07/20 21:58 11/07/20 21:59 11/07/20 22:22 Temperature Temperature Source Pulse Rate Pulse Rate [Apical] Pulse Rate from SpO2 Sensor Respiratory Rate 18 Respiratory Effort / Characteristics Non-Labored Spontaneous Respiratory Depth Blood Pressure Blood Pressure [Right Arm] Blood Pressure Mean Blood Pressure Mean [Right Arm] Pulse Oximetry 91 91 86 L Oxygen Delivery Method Room Air Room Air Room Air Oxygen Flow Rate Sepsis Recent Fever Within 48 Hours Sepsis New/Unexplained Change in Mental Status Sepsis Action Taken by Nursing Oxygen Flow Rate - Titration 3 Pulse Oximetry Post Tiitration 96 11/07/20 23:00 11/07/20 23:30 Temperature Temperature Source Pulse Rate 97 H 96 H Pulse Rate [Apical] Pulse Rate from SpO2 Sensor 98 H 96 H Respiratory Rate 22 24 Respiratory Effort / Characteristics Respiratory Depth Blood Pressure 140/74 131/72 Blood Pressure [Right Arm] Blood Pressure Mean 96 91 Blood Pressure Mean [Right Arm] Pulse Oximetry 97 96 Oxygen Delivery Method Nasal Cannula Nasal Cannula Oxygen Flow Rate 2 2 Sepsis Recent Fever Within 48 Hours Sepsis New/Unexplained Change in Mental Status Sepsis Action Taken by Nursing Oxygen Flow Rate - Titration Pulse Oximetry Post Tiitration General: Well developed well nourished older female who appears in no acute distress, breathing comfortably on room air. Normal speech. She is alert to person and place but not date HEENT: Normal cephalic atraumatic. Pupils are equal round and reactive to light. Extraocular movements are intact. Oropharynx is pink with moist mucous membranes. No swelling of the mouth lips or tongue. Neck: Supple with a midline trachea. No meningeal signs or stiffness, no JVD or bruits. No Stridor. Chest: Clear to auscultation bilaterally. No wheezes or rhonchi. No increased work of breathing. Heart: Regular rate and rhythm without murmurs or gallops. Abdomen: Soft nontender, nondistended without rebound guarding or rigidity. Extremities: No cyanosis clubbing or edema. No calf tenderness or assymetry Spine/Back. Non tender to palpation. No CVA tenderness Skin: Good turgor without rashes. Neurologic exam: Cranial nerves two through 12 are intact. Motor and sensation are intact and symmetrical throughout. Course Administered Medications Discontinued Medications Acetaminophen (Acetaminophen 500 Mg Tab) 500 mg PO NOW STA Stop: 11/07/20 21:59 Last Admin: 11/07/20 22:22 Dose: 500 mg Documented by: [id number] Sodium Chloride (Nss) 500 mls @ 999 mls/hr IV .Q31M ONE Stop: 11/07/20 22:23 Last Infusion: 11/07/20 22:53 Dose: 0 mls/hr Documented by: [id number] Admin: 11/07/20 22:22 Dose: 999 mls/hr Documented by: [id number] Piperacillin Sod/Tazobactam Sod (Zosyn) 4.5 gm in 120 mls @ 240 mls/hr IV NOW ONE Stop: 11/07/20 23:42 Last Infusion: 11/07/20 23:53 Dose: 0 mls/hr Documented by: [id number] Admin: 11/07/20 23:23 Dose: 240 mls/hr Documented by: [id number] Medical Decision Making Differential Diagnosis Sepsis, pneumonia, UTI, Covid, cardiac disease, CHF, electrolyte or metabolic a bnormality Medical Records Attestation: I reviewed the patient's medical records. Home Medications Current Medication List: was personally reviewed by me Laboratory Data Attestation: I reviewed the patient's lab results. Result diagrams: 11/07/20 22:03 11/07/20 22:03 Lab Results 11/07/20 11/07/20 11/07/20 Range/Units 22:03 22:03 22:03 WBC 4.99 (4.8-10.8) K/uL RBC 3.32 L (4.2-5.4) M/uL Hgb 10.4 L (12.0-16.0) g/dL Hct 31.4 L (37-47) % MCV 94.6 (80-100) fL MCH 31.3 (25-34) pg MCHC 33.1 (32-36) g/dL RDW Std Deviation 49.0 H (36.4-46.3) fL RDW Coeff of Arturo 14.3 (11.5-14.5) % Plt Count 226 (130-400) K/uL MPV 8.8 (7.4-10.4) fL Immature Gran % (Auto) 0.2 % Neut % (Auto) 66.0 % Lymph % (Auto) 23.4 % [place] % (Auto) 8.2 % Eos % (Auto) 2.0 % Baso % (Auto) 0.2 % Neut # (Auto) 3.29 (1.4-6.5) K/uL Lymph # (Auto) 1.17 L (1.2-3.4) K/uL [place] # (Auto) 0.41 (0.11-0.59) K/uL Eos # (Auto) 0.10 (0-0.5) K/uL Baso # (Auto) 0.01 (0-0.2) K/uL Immature Gran # (Auto) 0.01 (0.00-0.02) K/uL PT (9.0-12.0) Seconds INR (0.9-1.1) APTT (21.0-31.0) Seconds PTT Ratio Sodium 137 (136-145) mmol/L Potassium 3.4 L (3.5-5.1) mmol/L Chloride 107 (98-107) mmol/L Carbon Dioxide 22 (21-32) mmol/L Anion Gap 8.0 (3-11) BUN 9 (7-18) mg/dl Creatinine 0.92 (0.6-1.2) mg/dl Est Cr Clr Drug Dosing Not Reportable Est GFR ( Amer) 68.2 Est GFR (Non-Af Amer) 58.8 BUN/Creatinine Ratio 9.8 L (10-20) Glucose 91 (70-99) mg/dl Lactate (0.4-2.0) mmol/L Calcium 8.3 L (8.5-10.1) mg/dl Magnesium 1.5 L (1.8-2.4) mg/dl Total Bilirubin 0.8 (0.2-1) mg/dl AST 7 L (15-37) U/L ALT 8 L (12-78) U/L Alkaline Phosphatase 77 (45-117) U/L Troponin I < 0.015 (0-0.045) ng/ml NT-Pro-B Natriuret Pep 110 (0-1800) pg/ml Total Protein 6.5 (6.4-8.2) gm/dl Albumin 3.0 L (3.4-5.0) gm/dl Globulin 3.5 (2.5-4.0) gm/dl Albumin/Globulin Ratio 0.9 (0.9-2) Procalcitonin 0.07 (0-0.5) ng/ml Influ A Molecular Assay (Negative) Influ B Molecular Assay (Negative) 11/07/20 11/07/20 11/07/20 Range/Units 22:03 22:03 22:15 WBC (4.8-10.8) K/uL RBC (4.2-5.4) M/uL Hgb (12.0-16.0) g/dL Hct (37-47) % MCV (80-100) fL MCH (25-34) pg MCHC (32-36) g/dL RDW Std Deviation (36.4-46.3) fL RDW Coeff of Arturo (11.5-14.5) % Plt Count (130-400) K/uL MPV (7.4-10.4) fL Immature Gran % (Auto) % Neut % (Auto) % Lymph % (Auto) % [place] % (Auto) % Eos % (Auto) % Baso % (Auto) % Neut # (Auto) (1.4-6.5) K/uL Lymph # (Auto) (1.2-3.4) K/uL [place] # (Auto) (0.11-0.59) K/uL Eos # (Auto) (0-0.5) K/uL Baso # (Auto) (0-0.2) K/uL Immature Gran # (Auto) (0.00-0.02) K/uL PT 11.8 (9.0-12.0) Seconds INR 1.1 (0.9-1.1) APTT 31.3 H (21.0-31.0) Seconds PTT Ratio 1.1 Sodium (136-145) mmol/L Potassium (3.5-5.1) mmol/L Chloride (98-107) mmol/L Carbon Dioxide (21-32) mmol/L Anion Gap (3-11) BUN (7-18) mg/dl Creatinine (0.6-1.2) mg/dl Est Cr Clr Drug Dosing Est GFR ( Amer) Est GFR (Non-Af Amer) BUN/Creatinine Ratio (10-20) Glucose (70-99) mg/dl Lactate 0.9 (0.4-2.0) mmol/L Calcium (8.5-10.1) mg/dl Magnesium (1.8-2.4) mg/dl Total Bilirubin (0.2-1) mg/dl AST (15-37) U/L ALT (12-78) U/L Alkaline Phosphatase (45-117) U/L Troponin I (0-0.045) ng/ml NT-Pro-B Natriuret Pep (0-1800) pg/ml Total Protein (6.4-8.2) gm/dl Albumin (3.4-5.0) gm/dl Globulin (2.5-4.0) gm/dl Albumin/Globulin Ratio (0.9-2) Procalcitonin (0-0.5) ng/ml Influ A Molecular Assay Negative (Negative) Influ B Molecular Assay Negative (Negative) Imaging Data Attestation: I personally reviewed and interpreted this imaging study as follows: My Impression: Chest x-raythere are bilateral and parents interstitial opacities likely consistent with pneumonia such as Covid Radiologist's Impression: SINGLE VIEW CHEST CLINICAL HISTORY: Sepsis. FINDINGS: An AP, portable, upright chest radiograph is compared to study dated 10/20/2020 and correlated with chest CT dated 10/15/2020. The examination is degraded by portable technique and patient rotation. The heart is top normal for projection noting atherosclerotic calcification of the thoracic aorta. There are diffuse hazy interstitial airspace opacities seen bilaterally. No large pleural effusion or pneumothorax is seen. The skeletal structures are osteopenic. The bony thorax is grossly intact. IMPRESSION: 1. There are diffuse bilateral interstitial airspace opacities. This could represent pulmonary edema and/or multifocal pneumonia. Clinical correlation will be required and radiographic follow-up to resolution is recommended. 2. No large pleural effusion is identified. ECG Data Attestation: I personally reviewed and interpreted this ECG as follows: Indication: + weakness Rate (beats per minute): 98 Rhythm: + normal sinus ECG Intervals/blocks: + Normal QRS, + Normal QT and + Normal OR ECG [place]: + Normal ECG ST segments: + Normal ST segments ECG Findings: no PACs and no PVCs Comparison ECG Date: from (10/14/20) Change: no significant change MDM Narrative This patient comes in as described above. She was placed on a it systems manager in room A4. She has had a fever and chills. Her oxygen is a little on the low side at the high 80s low 90s. She appears in no distress she does have a temperature 38 1. I did a full sepsis work-up. She did have Covid diagnosed on October 14 and apparently was doing okay in between. Her chest x-ray does look like Covid however her diagnosis was almost a month ago at this point it is possible she could have a secondary infection of bacteria however her white count procalcitonin and lactate are all normal. I did give her Zosyn IV for bacterial coverage and she may need further antibiotics as well. There is nothing to suggest acute coronary syndrome or arrhythmia. She does need to be admitted for further treatment evaluation of discussed her case with her son Jason on the telephone twice and he agrees with the plan. I discussed the case with Dr. Schwarz and she will be admitted for further treatment and evaluation Continuous cardiac monitoring: An order was placed in the EMR for continuous cardiac monitoring. The patient was noted to be in normal sinus rhythm pulse of 95 Impression & Plan Pneumonia, Hypoxemia, COVID-19 determined by clinical diagnostic criteria, Weakness, COVID-19 Discharge Plan Visit Data Chief Complaint: Fever Stated Complaint: FEVER 102, COVID ED Provider: Jason Aragon Discharge Problem: Pneumonia, Hypoxemia, COVID-19 determined by clinical diagnostic criteria, Weakness, COVID-19 Forms Stand Alone Forms: [facility] app2you Prescriptions Prescriptions: No Action ropinirole 1 mg Tablet 1 mg PO HS RF: 0 omeprazole 40 mg Capsule,Delayed Release(Dr/Ec) 40 mg PO QAM RF: 0 levothyroxine 50 mcg tablet 50 mcg PO QAM RF: 0 docusate sodium 100 mg Capsule 100 mg PO BID PRN (Reason: Constipation) RF: 0 montelukast 10 mg Tablet 10 mg PO QAM RF: 0 lorazepam 1 mg tablet 1 - 2 mg PO DAILY PRN (Reason: Anxiety/Insomnia) RF: 0 carbidopa-levodopa 25-100 mg Tablet 1 tab PO BID RF: 0 escitalopram oxalate 10 mg tablet 10 mg PO QAM RF: 0 cholecalciferol (vitamin D3) 50,000 unit capsule 50,000 unit PO 2XWK RF: 0 diphenhydramine-acetaminophen [Tylenol PM Extra Strength] 25-500 mg Tablet 1 tab PO HS PRN (Reason: Sleep) RF: 0 ondansetron HCl 4 mg tablet 4 mg PO Q8H PRN (Reason: Nausea) RF: 0 gabapentin 300 mg capsule 300 mg PO HS RF: 0 potassium chloride [Klor-Con M10] 10 mEq Tablet,Er Particles/Crystals 10 meq PO Q24H Qty: 30 RF: 0 famotidine [Acid Personal Attendant (famotidine)] 10 mg Tablet 10 mg PO BID Qty: 60 RF: 0 Discharge Problem: Pneumonia Qualifiers: Pneumonia type: due to unspecified organism Laterality: bilateral Lung location: lower lobe of lung Qualified Code(s): J18.9 - Pneumonia, unspecified organism
[2020-11-07 22:41] LABS: Alanine Aminotransferase 8 U/L (12-78); Aspartate Aminotransferase 7 U/L (15-37); BUN Creatinine Ratio 9.8 (10-20); Blood Urea Nitrogen 9 mg/dl (7-18); Calcium 8.3 mg/dl (8.5-10.1); Carbon Dioxide 22 mmol/L (21-32); Chloride 107 mmol/L (98-107); Est GFR (African American) 68.2; Est GFR (Non-African American) 58.8; Glucose 91 mg/dl (70-99); Magnesium 1.5 mg/dl (1.8-2.4); Potassium 3.4 mmol/L (3.5-5.1); Sodium 137 mmol/L (136-145)
[2020-11-07 22:42] LABS: INR 1.1 (0.9-1.1); Partial Thromboplastin Ratio 1.1; Partial Thromboplastin Time 31.3 Seconds (21.0-31.0); Prothrombin Time 11.8 Seconds (9.0-12.0)
[2020-11-07 22:46] LABS: Albumin Globulin Ratio 0.9 (0.9-2); Alkaline Phosphatase 77 U/L (45-117); Bilirubin,Total 0.8 mg/dl (0.2-1); Globulin 3.5 gm/dl (2.5-4.0); NT Pro B Type Natriuretic Pept 110 pg/ml (0-1800); Total Protein 6.5 gm/dl (6.4-8.2); Troponin I < 0.015 ng/ml (0-0.045)
--- NOTE | 2020-11-07 22:55 | XRay Report ---
SINGLE VIEW CHEST CLINICAL HISTORY: Sepsis. FINDINGS: An AP, portable, upright chest radiograph is compared to study dated 10/20/2020 and correlate d with chest CT dated 10/15/2020. The examination is degraded by portable technique and patient rotat ion. The heart is top normal for projection noting atherosclerotic calcification of the thoracic aor ta. There are diffuse hazy interstitial airspace opacities seen bilaterally. No large pleural effusio n or pneumothorax is seen. The skeletal structures are osteopenic. The bony thorax is grossly intact. IMPRESSION: 1. There are diffuse bilateral interstitial airspace opacities. This could represent pulmonary edema and/or multifocal pneumonia. Clinical correlation will be required and radiographic follow-up to reso lution is recommended. 2. No large pleural effusion is identified. ACT 112: Negative or not required by law. Electronically signed by: Gideon Haynes M.D. 11/07/2020 10:54 PM
[2020-11-07 22:58] LABS: Basophils # (auto) 0.01 K/uL (0-0.2); Basophils % (auto) 0.2 %; Hematocrit (blood only) 31.4 % (37-47); Hemoglobin 10.4 g/dL (12.0-16.0); Immature Granulocytes # (auto) 0.01 K/uL (0.00-0.02); Immature Granulocytes % (auto) 0.2 %; Lymphocytes # (auto) 1.17 K/uL (1.2-3.4); Lymphocytes % (auto) 23.4 %; Mean Corpuscular Hemoglobin 31.3 pg (25-34); Mean Corpuscular Hgb Conc 33.1 g/dL (32-36); Mean Corpuscular Volume 94.6 fL (80-100); Mean Platelet Volume 8.8 fL (7.4-10.4); Monocytes # (auto) 0.41 K/uL (0.11-0.59); Monocytes % (auto) 8.2 %; Neutrophils # (auto) 3.29 K/uL (1.4-6.5); Platelet Count 226 K/uL (130-400); RDW Coefficient of Variation 14.3 % (11.5-14.5); Red Blood Count 3.32 M/uL (4.2-5.4); White Blood Count 4.99 K/uL (4.8-10.8)
[2020-11-07] MEDS ORDERED: PIPERACILLIN/TAZOBACTAM 4.5 GM/120 ML BAG IV ONE (23:13)
[2020-11-07] MEDS ORDERED: PIPERACILL/TAZOBAC CONSULT ACTIVE PRN (23:13)
[2020-11-07 23:23] LABS: Influenza A virus by PCR Negative (Negative); Influenza B virus by PCR Negative (Negative)
[2020-11-08 04:14] LABS: Influenza A virus by PCR Negative (Neg); Influenza B virus by PCR Negative (Neg); RSV by PCR Negative (Neg)
[2020-11-08 04:32] LABS: SARS CoV2 RNA(COVID-19) InHosp POSITIVE (Negative)
[2020-11-08] MEDS ORDERED: POTASSIUM CHLORIDE CRTAB 20 MEQ TABCR PO STA (04:36)
[2020-11-08] MEDS ORDERED: MAGNESIUM SULFATE / D5W 1 GM/100 ML BAG IV STA (04:36)
--- NOTE | 2020-11-08 05:44 | History and Physical Report ---
DATE OF ADMISSION: 11/08/2020 CHIEF COMPLAINT: Fever, shortness of breath and cough. HISTORY OF PRESENT ILLNESS: This 80-year-old female with past medical history significant for Parkinson's disease, hypothyroidism, hypopotassemia, hyperlipidemia, history of CVA, GERD, anxiety, insomnia, depression, history of spinal stenosis, status post lumbar spine surgery, comes here because of fever and cough and shortness of breath. The patient was admitted on 10/14/2020 with COVID 19. She was treated with remdesivir and dexamethasone and got discharged on 10/22/2020. Her recently with COVID. She lives with her son. The patient says the last 2 days she is having coughing, bringing up greenish phlegm and today she has a fever and chills. So the family brought her to the hospital and when she came in, she was saturating 86% on room air, on 2 liters saturating 95%.Hemodynamically stable, no leukocytosis. Still has some leukopenia, improved from last admission. Troponin negative. Flu negative. Chest x-ray showing bilateral interstitial airspace opacities. The patient says she is feeling fine. Denies any chest pain. She says she always has some shortness of breath. Denies any nausea, vomiting. No abdominal pain, no headache, no blurred vision, no earache, no runny nose, no sore throat. Ambulating okay in the ER room. Normal bowel and bladder movements. No abdominal pain. She says appetite is okay. No loss of sense of smell or taste. ALLERGIES: SULFA ANTIBIOTICS, FLEXERIL, TOLTERODINE. PAST MEDICAL HISTORY: As mentioned above. PAST SURGICAL HISTORY: Colonoscopy with biopsies, multiple EGDs with biopsy, cholecystectomy, shoulder arthroscopic surgery, total abdominal hysterectomy with removal of tubes, total knee replacement on the right side. MEDICATIONS: The patient is on carbidopa/levodopa 1 tablet p.o. b.i.d., vitamin D 50,000 units p.o. 2 times a week, diphenhydramine, acetaminophen, Tylenol PM Extra Strength 1 tablet p.o. at bedtime p.r.n., Colace 100 mg p.o. b.i.d. p.r.n., Lexapro 10 mg p.o. a.m., famotidine 10 mg p.o. b.i.d., gabapentin 300 mg at bedtime, levothyroxine 50 mcg p.o. a.m., Ativan 1-2 mg p.o. daily p.r.n., montelukast 10 mg p.o. a.m., omeprazole 40 mg p.o. a.m., Zofran 4 mg q. 8 hours p.r.n., potassium chloride 10 mEq p.o. daily, ropinirole 1 mg p.o. at bedtime. FAMILY HISTORY: Significant for father had diabetes and heart disorder. Brother of colon cancer and heart disorder. SOCIAL HISTORY: Currently lives with her son. Former smoker, quit in 1978. No alcohol use, no drug use. REVIEW OF SYMPTOMS: As per HPI. Rest of review of systems negative. PHYSICAL EXAMINATION: GENERAL: The patient is of moderate build, not in acute distress. VITAL SIGNS: Temperature, T-max 38.1, pulse 93, oxygen 96% on room air, currently 98% on 2 liters, blood pressure 117/64. HEENT: No pallor, no icterus. Oral mucosa moist. NECK: No neck masses seen. CARDIOVASCULAR: S1, S2 heard, regular rate and rhythm, no murmur, no gallop. RESPIRATORY SYSTEM: Normal AP diameter. No accessory muscle use. No wheezing, no crackles. ABDOMEN: Soft, bowel sounds present, nontender. No distention. CENTRAL NERVOUS SYSTEM: Cranial nerves II-XII grossly intact. Nonfocal. EXTREMITIES: No edema, no erythema. LABORATORY DATA: WBC 4.9, hemoglobin 10.4, hematocrit 31.4, platelets 226, PT 11.8, INR 1.1, APTT 31.3. Sodium 137, potassium 3.4, chloride 107, bicarbonate 22, BUN 29, creatinine 0.9, serum glucose 91. Lactate 0.9, calcium 8.3, magnesium 1.5, total bilirubin 0.8, AST 7, ALT 8, alkaline phosphatase 77. Troponin I less than 0.015. BNP 110, procalcitonin 0.07. Influenza A and B negative. Chest x-ray: Diffuse bilateral interstitial airspace opacities. EKG: Normal sinus rhythm, rate of 98, no acute ST changes seen. ASSESSMENT AND PLAN: This 80-year-old female who was recently in the hospital for COVID comes back with fever, shortness of breath and cough. 1. Fever, shortness of breath and cough. The patient was diagnosed with COVID pneumonia on 10/14/2020 and got treated with remdesivir and dexamethasone and discharged in stable condition. She comes back with shortness of breath, cough, greenish phlegm and fever going on for last 2 days and there is no leukocytosis. Chest x-ray showed some diffuse bilateral interstitial airspace opacities, could be bacterial pneumonia and superimposed COVID infection though there is no leukocytosis, rule out recurrent COVID infection. We will also do a CT chest to rule out PE and look for any infiltrates. Empirically this time, she was started on Zosyn. Continue Zosyn and also add doxycycline and continue oxygen supplementation. Monitor in the Medicine in Practice tele. 2. Electrolyte abnormalities. We will replace. Follow the repeat labs. 3. History of left breast nodules and recurrent lesions bilateral, Lung nodule on CAT scan last admission. Follow CAT scan doing today. Needs followup as outpatient with a nonemergent mammogram. 4. Parkinson's disease on carbidopa/levodopa. 5. Depression, anxiety. Continue Lexapro. 6. Restless leg syndrome. Continue ReQuip. 7. Hypothyroidism. Continue Synthroid. 8. Gastroesophageal reflux disease. Continue PPI. 9. History of hypopotassemia. continue home supplement.We will follow the labs. 10. Deep venous thrombosis prophylaxis, Lovenox. DISPOSITION: Closely monitor in the med tele. Level 1 full code. Expect discharge home and follow with family doctor. RUSS
[2020-11-08] MEDS ORDERED: OPTIRAY 320 125ml IV ONE (06:28)
[2020-11-08] MEDS ORDERED: DOCUSATE SODIUM 100 MG CAP PO PRN (07:26)
[2020-11-08] MEDS ORDERED: NITROGLYCERIN SL 0.4 MG/TAB TAB SL PRN (07:26)
--- NOTE | 2020-11-08 07:54 | Electrocardiogram Report ---
Test Reason : Blood Pressure : / mmHG Vent. Rate : 098 BPM Atrial Rate : 098 BPM P-R Int : 174 ms QRS Dur : 082 ms QT Int : 374 ms P-R-T Axes : 065 033 055 degrees QTc Int : 477 ms Poor data quality, interpretation may be adversely affected Normal sinus rhythm Nonspecific T wave abnormality When compared with ECG of 14-OCT-2020 21:22, Borderline criteria for Inferior infarct are no longer Present T wave inversion no longer evident in Anterolateral leads Confirmed by Luis Martin ([id number]) on 11/08/2020 7:53:24 AM Referred By: REFERRED SELF Confirmed By:Luis Martin
--- NOTE | 2020-11-08 07:54 | CT Scan Report ---
CT angio chest PE protocol CT DOSE: 241.60 mGy.cm HISTORY: 80 years-old Female with PE. recent covid, sob fever. Acute fever with shortness of breath . COVID Positive. TECHNIQUE: Multiple CTA images of the chest were obtained after the intravenous administration of 120 ml Optiray 320. Coronal and sagittal MIPS were obtained from the axial data set and were submitted for review. All measurements were obtained according to NASCET criteria. A dose lowering technique w as utilized adhering to the principles of ALARA. COMPARISON: CT chest 10/15/2020 FINDINGS: CTA: Mild cardiomegaly. No pericardial effusion. Since of coronary artery calcifications. Plaque of the th oracic aorta without aneurysmal dissection. Calcified plaque at the origin of the left subclavian art sonia results in high-grade stenosis. The remaining imaged great vessels appear patent. Filling defects are noted within the lumbar, segmental and subsegmental branches of the bilateral lungs. No definite evidence of right heart strain. CT CHEST: Unremarkable thyroid. No adenopathy. Trace pleural effusions. No pneumothorax. Unchanged 6 mm perifis sural ground glass nodule right middle lobe on image 139 series 4. The previously noted 5 mm nodule o f the right middle lobe is no longer identified. Linear subsegmental consolidative opacity of the bas al left lower lobe on image 92 series 4 with subpleural bibasilar groundglass densities. No overt pul monary edema. Dependent bibasilar atelectasis. Central airways are patent. High density material noted within the distal stomach. Cholecystectomy. Unremarkable soft tissues. No acute fracture. Degenerative changes of the shoulders and spine. IMPRESSION: 1. Cardiomegaly with bilateral lobar, segmental and subsegmental pulmonary emboli. 2. Mild bibasilar opacities suggest a combination of atelectasis with developing pulmonary infarcts a nd/or a mild infectious or inflammatory pneumonitis. 3. Trace pleural effusions. 4. Unchanged 6 mm groundglass nodule of the right middle lobe. 5. Cholecystectomy. ACT 112: Negative or not required by law. The above report was generated using voice recognition software. It may contain grammatical, syntax o r spelling errors. Electronically signed by: Phillip Gurrola M.D. 11/08/2020 7:52 AM
[2020-11-08] MEDS ORDERED: diphenhydrAMINE Capsule 25 MG CAP PO PRN (08:24)
[2020-11-08] MEDS ORDERED: ACETAMINOPHEN 500 MG TAB PO PRN (08:25)
[2020-11-08 08:32] LABS: Eosinophils % (auto) 4.4 %; Hematocrit (blood only) 33.2 % (37-47); Immature Granulocytes # (auto) 0.01 K/uL (0.00-0.02); Immature Granulocytes % (auto) 0.2 %; Lymphocytes # (auto) 1.09 K/uL (1.2-3.4); Lymphocytes % (auto) 23.9 %; Mean Corpuscular Hemoglobin 31.4 pg (25-34); Mean Corpuscular Hgb Conc 33.1 g/dL (32-36); Mean Corpuscular Volume 94.9 fL (80-100); Mean Platelet Volume 8.8 fL (7.4-10.4); Monocytes # (auto) 0.44 K/uL (0.11-0.59); Monocytes % (auto) 9.6 %; Neutrophils # (auto) 2.82 K/uL (1.4-6.5); Neutrophils % (auto) 61.9 %; Platelet Count 240 K/uL (130-400); RDW Coefficient of Variation 14.7 % (11.5-14.5); RDW Standard Deviation 50.2 fL (36.4-46.3); White Blood Count 4.56 K/uL (4.8-10.8)
[2020-11-08] MEDS ORDERED: ENOXAPARIN INJ 40 MG/0.4 ML SYR SQ SCH (09:00)
[2020-11-08 09:04] LABS: BUN Creatinine Ratio 10.4 (10-20); Calcium 8.2 mg/dl (8.5-10.1); Creatinine Clr Calc Pharmacy 41.7 ml/min; Est GFR (Non-African American) 64.7; Magnesium 2.2 mg/dl (1.8-2.4); Potassium 3.9 mmol/L (3.5-5.1)
[2020-11-08 09:05] LABS: Phosphorus 3.2 mg/dl (2.5-4.9)
[2020-11-08] MEDS ORDERED: PIPERACILLIN/TAZOBACTAM 3.375 GM in DEXTROSE 5% 100 ML IV ONE (09:15)
[2020-11-08] MEDS: ESCITALOPRAM OXALATE 10 MG TAB PO SCH (09:26)
[2020-11-08] MEDS: FAMOTIDINE 10 MG TABLET PO SCH ×2 (09:26→20:08)
[2020-11-08] MEDS: PANTOprazole 40 MG TAB PO SCH (09:26)
[2020-11-08] MEDS: DOXYCYCLINE HYCLATE 100 MG in DEXTROSE 5% 100 ML IV SCH ×2 (09:26→21:05)
[2020-11-08] MEDS: POTASSIUM CHLORIDE 10 MEQ TABCR PO SCH (09:26)
[2020-11-08] MEDS: CARBIDOPA/LEVODOPA 25/100MG TAB PO SCH ×2 (09:27→20:09)
[2020-11-08] MEDS: MONTELUKAST SODIUM 10 MG TABLET PO SCH (09:27)
[2020-11-08] MEDS: LEVOTHYROXINE SODIUM 50 MCG TABLET PO SCH (09:27)
[2020-11-08] MEDS ORDERED: Heparin IV Low Dose WITH Bolus IV STA (09:37)
[2020-11-08 09:51] LABS: C Reactive Protein 8.67 mg/dl (0-0.29); Ferritin 88.9 ng/ml (8-388)
[2020-11-08 11:00] LABS: INR 1.1 (0.9-1.1); Partial Thromboplastin Ratio 1.2; Partial Thromboplastin Time 32.5 Seconds (21.0-31.0); Prothrombin Time 11.9 Seconds (9.0-12.0)
[2020-11-08] MEDS ORDERED: MoRPHine SULFATE 4 MG/ML 1 ML CARP\\VIAL IV PRN (11:33)
[2020-11-08] MEDS: HEPARIN SODIUM/DEXTROSE 25,000 UNITS/500 ML BAG IV SCH (11:47)
--- NOTE | 2020-11-08 13:56 | Communication Note ---
Date of Service: November 08, 2020 The patient was seen and examined. Admitted early this morning with increasing shortness of breath and came out to be secondary to multiple pulmonary embolism. Has had some chest pain later in the morning and subsequent EKG and troponin were unremarkable. Heparin has been started. Will have full progress note tomorrow. She remains hemodynamically stable Dr Mickie Foley
[2020-11-08] MEDS: PIPERACILLIN/TAZOBACTAM 3.375 GM in DEXTROSE 5% 100 ML IV SCH ×2 (14:35→22:54)
[2020-11-08 17:52] LABS: Partial Thromboplastin Ratio 1.5; Partial Thromboplastin Time 40.7 Seconds (21.0-31.0)
[2020-11-08] MEDS: ONDANSETRON 4 MG OD TAB PO PRN ×2 (18:30→21:44)
[2020-11-08] MEDS: ACETAMINOPHEN 325 MG TAB PO PRN (18:30)
[2020-11-08] MEDS: GABAPENTIN 300 MG CAP PO SCH (20:08)
[2020-11-08] MEDS: rOPINIRole HCL 1 MG TABLET PO SCH (20:09)
[2020-11-09 00:46] LABS: Partial Thromboplastin Ratio 2.2
[2020-11-09 00:49] LABS: Partial Thromboplastin Time 61.8 Seconds (21.0-31.0)
[2020-11-09] MEDS: LEVOTHYROXINE SODIUM 50 MCG TABLET PO SCH (05:47)
[2020-11-09] MEDS: PIPERACILLIN/TAZOBACTAM 3.375 GM in DEXTROSE 5% 100 ML IV SCH ×3 (05:49→21:43)
[2020-11-09 07:08] LABS: Basophils # (auto) 0.02 K/uL (0-0.2); Basophils % (auto) 0.4 %; Eosinophils # (auto) 0.33 K/uL (0-0.5); Eosinophils % (auto) 6.7 %; Hematocrit (blood only) 33.1 % (37-47); Hemoglobin 10.9 g/dL (12.0-16.0); Immature Granulocytes # (auto) 0.01 K/uL (0.00-0.02); Immature Granulocytes % (auto) 0.2 %; Lymphocytes # (auto) 1.52 K/uL (1.2-3.4); Mean Corpuscular Hgb Conc 32.9 g/dL (32-36); Mean Platelet Volume 8.8 fL (7.4-10.4); Monocytes # (auto) 0.41 K/uL (0.11-0.59); Monocytes % (auto) 8.4 %; Neutrophils # (auto) 2.61 K/uL (1.4-6.5); Neutrophils % (auto) 53.3 %; Platelet Count 255 K/uL (130-400); RDW Coefficient of Variation 14.5 % (11.5-14.5); RDW Standard Deviation 49.1 fL (36.4-46.3); Red Blood Count 3.52 M/uL (4.2-5.4)
[2020-11-09 07:52] LABS: Calcium 8.6 mg/dl (8.5-10.1); Est GFR (African American) 90.2; Est GFR (Non-African American) 77.8; Magnesium 1.8 mg/dl (1.8-2.4); Phosphorus 3.1 mg/dl (2.5-4.9); Potassium 3.6 mmol/L (3.5-5.1)
[2020-11-09] MEDS: POTASSIUM CHLORIDE 10 MEQ TABCR PO SCH (08:05)
[2020-11-09] MEDS: MONTELUKAST SODIUM 10 MG TABLET PO SCH (08:05)
[2020-11-09] MEDS: CARBIDOPA/LEVODOPA 25/100MG TAB PO SCH ×2 (08:05→21:46)
[2020-11-09] MEDS: PANTOprazole 40 MG TAB PO SCH (08:05)
[2020-11-09] MEDS: FAMOTIDINE 10 MG TABLET PO SCH ×2 (08:05→21:46)
[2020-11-09] MEDS: ESCITALOPRAM OXALATE 10 MG TAB PO SCH (08:05)
[2020-11-09] MEDS: DOXYCYCLINE HYCLATE 100 MG in DEXTROSE 5% 100 ML IV SCH (09:41)
[2020-11-09] MEDS: ONDANSETRON 4 MG OD TAB PO PRN (10:06)
[2020-11-09] MEDS: DOXYCYCLINE HYCLATE 100 MG CAP PO SCH ×2 (10:13→21:45)
--- NOTE | 2020-11-09 10:50 | Electrocardiogram Report ---
Test Reason : Blood Pressure : / mmHG Vent. Rate : 094 BPM Atrial Rate : 094 BPM P-R Int : 176 ms QRS Dur : 086 ms QT Int : 372 ms P-R-T Axes : 050 063 057 degrees QTc Int : 465 ms Normal sinus rhythm Normal ECG When compared with ECG of 07-NOV-2020 22:26, Nonspecific T wave abnormality no longer present Confirmed by Sudeep Rowell ([id number]) on 11/09/2020 10:49:38 AM Referred By: REFERRED SELF Confirmed By:Sudeep Rowell
--- NOTE | 2020-11-09 12:55 | Hospitalist Progress Note ---
Date of Service November 09, 2020 Assessment & Plan (1) Acute pulmonary embolism: Admitted with fever shortness of breath and cough with recent history of COVID-19 infection Noted to have bilateral multiple pulmonary emboli on CTA Ultrasound of the legs when not done as it will not change the treatment plan Started with intravenous heparin Discussed with the patient and she prefers to take Coumadin as her has been on Coumadin Has been feeling better since admission We will start 5 mg Coumadin from today (2) Pneumonia: Likely has community acquired pneumonia with recent history of COVID-19 infection Has been on doxycycline and Zosyn Continue those for now (3) COVID-19: Recent infection with COVID-19 which was treated accordingly This admission she was noted to be positive to without any significant desaturation Treatment with remdesivir and dexamethasone or plasma were not indicated (4) Depression: No acute delirium (5) Hypothyroidism: We will continue replacement (6) GERD (gastroesophageal reflux disease): We will continue PPI DVT prophylaxis Has been on heparin plus Coumadin CODE STATUS Full Admission and Anticipated Discharge Date Admission Date: November 08, 2020 Subjective 11/09/2020 The patient was seen and examined in medical telemetry unit She complains to have some cough but denies any more chest pain and/or shortness of breath Denies any fever and/or chills, any abdominal pain nausea and/or vomiting Review of Systems Review of Systems: All systems reviewed and are unremarkable except as noted below Respiratory: + cough; no dyspnea Cardiovascular: no chest pain and no palpitations Gastrointestinal: no abdominal pain, no nausea and no vomiting Physical Exam Physical Exam: Lying in bed with minimal shortness of breath at rest Constitutional: + acute distress (Cough and minimal shortness of) and + ill appearing Eyes: PERRL, conjunctivae normal, anicteric sclerae ENMT: external ear and nose normal, oropharynx normal Neck: trachea midline, no thyromegaly Respiratory: normal respiratory effort, lungs clear to auscultation Cardiovascular: Rate/Rhythm: regular rate and regular rhythm Heart Sounds: no murmur Extremities: no edema Gastrointestinal (Abdomen): Inspection/Auscultation: abdomen normal to inspection and normal bowel sounds; abdomen not distended Percussion/Palpation: abdomen soft; abdomen nontender Musculoskeletal: No acute arthritis in any joint Neurologic: Alert, awake and oriented x3. Generally weak but no focal sensory and/or motor deficit appreciated Psychiatric: A+Ox3, euthymic affect Lymphatic: no cervical or axillary lymphadenopathy Results & Data Results & Data ([facility]) Vital Signs (Past 12 Hours) Vital Signs Temp Pulse Resp BP Pulse Ox 11/09/20 08:18 36.5 C 106 H 18 124/78 96 11/09/20 03:00 36.8 C 86 18 121/77 92 Laboratory Results Short CBC 11/09/20 Range/Units 06:27 WBC 4.90 (4.8-10.8) K/uL Hgb 10.9 L (12.0-16.0) g/dL Hct 33.1 L (37-47) % Plt Count 255 (130-400) K/uL BMP 11/09/20 06:27 Sodium 140 Potassium 3.6 Chloride 107 Carbon Dioxide 25 BUN 6 L Creatinine 0.73 Calcium 8.6 Cardiac Enzymes 11/08/20 Range/Units 12:17 Troponin I < 0.015 (0-0.045) ng/ml Medications Administered Current Inpatient Medications Acetaminophen (Acetaminophen 325 Mg Tab) 650 mg PO Q4H PRN PRN Reason: Pain or Fever Stop: 12/08/20 07:25 Last Admin: 11/08/20 18:30 Dose: 650 mg Documented by: Acetaminophen (Acetaminophen 500 Mg Tab) 500 mg PO HS PRN PRN Reason: Sleep Stop: 12/08/20 08:24 Carbidopa/Levodopa (Carbidopa/Levodopa 25/100mg Tab) 1 tab PO BID [facility] Stop: 12/08/20 08:59 Last Admin: 11/09/20 08:05 Dose: 1 tab Documented by: Diphenhydramine HCl (Diphenhydramine Capsule 25 Mg Cap) 25 mg PO HS PRN PRN Reason: Sleep Stop: 12/08/20 08:23 Docusate Sodium (Docusate Sodium 100 Mg Cap) 100 mg PO BID PRN PRN Reason: Constipation Stop: 12/08/20 07:25 Doxycycline Hyclate (Doxycycline Hyclate 100 Mg Cap) 100 mg PO BID [facility] Stop: 11/15/20 08:59 Last Admin: 11/09/20 10:13 Dose: 100 mg Documented by: Ergocalciferol (Ergocalciferol 50,000 Units 1250 Mcg Cap) 50,000 units PO MoFr@0900 [facility] Stop: 12/10/20 08:59 Escitalopram Oxalate (Escitalopram Oxalate 10 Mg Tab) 10 mg PO QAM [facility] Stop: 12/08/20 08:59 Last Admin: 11/09/20 08:05 Dose: 10 mg Documented by: Famotidine (Famotidine 10 Mg Tablet) 10 mg PO BID [facility] Stop: 12/08/20 08:59 Last Admin: 11/09/20 08:05 Dose: 10 mg Documented by: Gabapentin (Gabapentin 300 Mg Cap) 300 mg PO HS [facility] Stop: 12/08/20 20:59 Last Admin: 11/08/20 20:08 Dose: 300 mg Documented by: Piperacillin Sod/Tazobactam (Sod 3.375 gm/ Dextrose) 115 mls @ 28.75 mls/hr IV Q8H [facility]; Protocol Stop: 11/15/20 13:59 Last Infusion: 11/09/20 09:52 Dose: Infused Documented by: Heparin Sodium/Dextrose (Heparin Sodium/Dextrose) 25,000 units in 500 mls @ 13 mls/hr IV .Q24H [facility]; Protocol Stop: 12/08/20 09:29 Last Titration: 11/09/20 06:55 Dose: 650 units/hr, 13 mls/hr Documented by: Levothyroxine Sodium (Levothyroxine Sodium 50 Mcg Tablet) 50 mcg PO DAILYBB [facility] Stop: 12/08/20 08:59 Last Admin: 11/09/20 05:47 Dose: 50 mcg Documented by: Lorazepam (Lorazepam 1 Mg Tab) 1 - 2 mg PO DAILY PRN PRN Reason: Anxiety/Insomnia Stop: 12/08/20 08:26 Miscellaneous Information (Piperacill/Tazobac Consult Active) 1 ea N/A UD PRN PRN Reason: Consult Stop: 12/07/20 23:12 Montelukast Sodium (Montelukast Sodium 10 Mg Tablet) 10 mg PO QAM [facility] Stop: 12/08/20 08:59 Last Admin: 11/09/20 08:05 Dose: 10 mg Documented by: Morphine Sulfate (Morphine Sulfate 4 Mg/Ml 1 Ml Carp\Vial) 4 mg IV Q6H PRN PRN Reason: Pain Stop: 11/22/20 11:32 Last Admin: 11/08/20 11:55 Dose: 4 mg Documented by: Nitroglycerin (Nitroglycerin Sl 0.4 Mg/Tab Tab) 0.4 mg SL UD PRN PRN Reason: Chest Pain Stop: 12/08/20 07:25 Ondansetron HCl (Ondansetron 4 Mg Od Tab) 4 mg PO Q8H PRN PRN Reason: Nausea Stop: 12/08/20 08:04 Last Admin: 11/09/20 10:06 Dose: 4 mg Documented by: Pantoprazole Sodium (Pantoprazole 40 Mg Tab) 40 mg PO [facility]; Protocol Stop: 12/08/20 08:59 Last Admin: 11/09/20 08:05 Dose: 40 mg Documented by: Potassium Chloride (Potassium Chloride 10 Meq Tabcr) 10 meq PO [facility] Stop: 12/08/20 08:59 Last Admin: 11/09/20 08:05 Dose: 10 meq Documented by: Ropinirole HCl (Ropinirole Hcl 1 Mg Tablet) 1 mg PO [facility] Stop: 12/08/20 20:59 Last Admin: 11/08/20 20:09 Dose: 1 mg Documented by: Warfarin Sodium (Warfarin Sod 5 Mg Tab) 5 mg PO DAILY@1600 [facility] Stop: 12/09/20 15:59 (1) Pneumonia Laterality: bilateral Lung location: lower lobe of lung Pneumonia type: due to unspecified organism Qualified Code(s): J18.9 - Pneumonia, unspecified organism
[2020-11-09] MEDS: WARFARIN SOD 5 MG TAB PO SCH (16:12)
[2020-11-09] MEDS: ACETAMINOPHEN 325 MG TAB PO PRN (16:16)
[2020-11-09] MEDS: GABAPENTIN 300 MG CAP PO SCH (21:46)
[2020-11-09] MEDS: rOPINIRole HCL 1 MG TABLET PO SCH (21:46)
[2020-11-10] MEDS: ONDANSETRON 4 MG OD TAB PO PRN (03:01)
[2020-11-10] MEDS: HEPARIN SODIUM/DEXTROSE 25,000 UNITS/500 ML BAG IV SCH (03:01)
[2020-11-10] MEDS: PIPERACILLIN/TAZOBACTAM 3.375 GM in DEXTROSE 5% 100 ML IV SCH ×2 (06:14→13:50)
[2020-11-10] MEDS: LEVOTHYROXINE SODIUM 50 MCG TABLET PO SCH (06:15)
[2020-11-10 07:03] LABS: Basophils # (auto) 0.01 K/uL (0-0.2); Basophils % (auto) 0.2 %; Eosinophils # (auto) 0.24 K/uL (0-0.5); Eosinophils % (auto) 4.8 %; Hematocrit (blood only) 31.5 % (37-47); Hemoglobin 10.5 g/dL (12.0-16.0); Immature Granulocytes # (auto) 0.01 K/uL (0.00-0.02); Immature Granulocytes % (auto) 0.2 %; Lymphocytes # (auto) 1.37 K/uL (1.2-3.4); Lymphocytes % (auto) 27.3 %; Mean Corpuscular Hemoglobin 31.2 pg (25-34); Mean Corpuscular Hgb Conc 33.3 g/dL (32-36); Mean Corpuscular Volume 93.5 fL (80-100); Mean Platelet Volume 9.3 fL (7.4-10.4); Monocytes # (auto) 0.44 K/uL (0.11-0.59); Monocytes % (auto) 8.8 %; Neutrophils # (auto) 2.95 K/uL (1.4-6.5); Neutrophils % (auto) 58.7 %; Platelet Count 346 K/uL (130-400); RDW Coefficient of Variation 14.3 % (11.5-14.5); RDW Standard Deviation 48.8 fL (36.4-46.3); Red Blood Count 3.37 M/uL (4.2-5.4); White Blood Count 5.02 K/uL (4.8-10.8)
[2020-11-10 07:20] LABS: INR 1.4 (0.9-1.1); Partial Thromboplastin Ratio 1.4; Prothrombin Time 14.9 Seconds (9.0-12.0)
[2020-11-10 07:30] LABS: BUN Creatinine Ratio 9.8 (10-20); Calcium 8.2 mg/dl (8.5-10.1); Creatinine Clr Calc Pharmacy 56.1 ml/min; Est GFR (African American) 99.2; Est GFR (Non-African American) 85.6; Potassium 3.4 mmol/L (3.5-5.1)
[2020-11-10] MEDS: ESCITALOPRAM OXALATE 10 MG TAB PO SCH (08:11)
[2020-11-10] MEDS: POTASSIUM CHLORIDE 10 MEQ TABCR PO SCH (08:11)
[2020-11-10] MEDS: MONTELUKAST SODIUM 10 MG TABLET PO SCH (08:11)
[2020-11-10] MEDS: DOXYCYCLINE HYCLATE 100 MG CAP PO SCH ×2 (08:11→21:20)
[2020-11-10] MEDS: PANTOprazole 40 MG TAB PO SCH (08:11)
[2020-11-10] MEDS: CARBIDOPA/LEVODOPA 25/100MG TAB PO SCH ×2 (08:11→21:20)
[2020-11-10] MEDS: FAMOTIDINE 10 MG TABLET PO SCH ×2 (08:11→21:19)
[2020-11-10] MEDS ORDERED: POTASSIUM CHLORIDE CRTAB 20 MEQ TABCR PO STA (08:42)
[2020-11-10] MEDS ORDERED: ERGOCALCIFEROL 50,000 UNITS 1250 MCG CAP PO SCH (09:00)
[2020-11-10 15:38] LABS: Partial Thromboplastin Ratio 1.6; Partial Thromboplastin Time 44.4 Seconds (21.0-31.0)
[2020-11-10] MEDS: WARFARIN SOD 5 MG TAB PO SCH (16:04)
--- NOTE | 2020-11-10 17:16 | Hospitalist Progress Note ---
Date of Service November 10, 2020 Assessment & Plan (1) Acute pulmonary embolism: Admitted with fever shortness of breath and cough with recent history of COVID-19 infection Noted to have bilateral multiple pulmonary emboli on CTA Ultrasound of the legs when not done as it will not change the treatment plan Started with intravenous heparin Discussed with the patient and she prefers to take Coumadin as her has been on Coumadin Has been feeling better since admission We will start 5 mg Coumadin from today Denies any other significant symptoms INR remains subtherapeutic We will get PT and OT evaluation before discharging home (2) Pneumonia: Likely has community acquired pneumonia with recent history of COVID-19 infection Has been on doxycycline and Zosyn IV Zosyn has been changed to intravenous Rocephin To be discharged home on oral doxycycline (3) COVID-19: Recent infection with COVID-19 which was treated accordingly This admission she was noted to be positive to without any significant desaturation Treatment with remdesivir and dexamethasone or plasma were not indicated She can come out of isolation and it has been about 27 days since Covid diagnosis (4) Depression: No acute delirium (5) Hypothyroidism: We will continue replacement (6) GERD (gastroesophageal reflux disease): We will continue PPI DVT prophylaxis Has been on heparin plus Coumadin CODE STATUS Full Admission and Anticipated Discharge Date Admission Date: November 08, 2020 Subjective 11/09/2020 The patient was seen and examined in medical telemetry unit She complains to have some cough but denies any more chest pain and/or shortness of breath Denies any fever and/or chills, any abdominal pain nausea and/or vomiting 11/10/2020 The patient was seen and examined in medical floor She has been complaining of some cough and minimal shortness of breath at rest Denies any chest pain and/or palpitation, denies any abdominal pain, nausea and/or vomiting Review of Systems Review of Systems: All systems reviewed and are unremarkable except as noted below Respiratory: + cough; no dyspnea Physical Exam Physical Exam: Lying in bed without any distress Constitutional: + ill appearing and + thin; no acute distress (Cough and mini mal shortness of) Eyes: PERRL, conjunctivae normal, anicteric sclerae ENMT: external ear and nose normal, oropharynx normal Neck: trachea midline, no thyromegaly Respiratory: normal respiratory effort Auscultation: + diminished lung sounds and + crackles (Minimal crackles at the bases) Cardiovascular: Rate/Rhythm: regular rate and regular rhythm Heart Sounds: no murmur Extremities: no edema Gastrointestinal (Abdomen): Inspection/Auscultation: abdomen normal to inspection and normal bowel sounds; abdomen not distended Percussion/Palpation: abdomen soft; abdomen nontender Neurologic: Alert, awake and oriented x3. Generally weak Psychiatric: A+Ox3, euthymic affect Lymphatic: no cervical or axillary lymphadenopathy Results & Data Results & Data ([facility]) Vital Signs (Past 12 Hours) Vital Signs Temp Pulse Pulse Resp BP Pulse Ox Pulse Ox 11/10/20 16:00 91 H 93 11/10/20 15:24 36.5 C 93 H 20 122/78 94 11/10/20 12:15 36.4 C L 85 20 124/74 98 11/10/20 07:18 36.7 C 91 H 20 127/72 90 Laboratory Results Short CBC 11/10/20 Range/Units 06:31 WBC 5.02 (4.8-10.8) K/uL Hgb 10.5 L (12.0-16.0) g/dL Hct 31.5 L (37-47) % Plt Count 346 (130-400) K/uL BMP 11/10/20 06:31 Sodium 141 Potassium 3.4 L Chloride 110 H Carbon Dioxide 24 BUN 6 L Creatinine 0.61 Glucose 86 Calcium 8.2 L Medications Administered Current Inpatient Medications Acetaminophen (Acetaminophen 325 Mg Tab) 650 mg PO Q4H PRN PRN Reason: Pain or Fever Stop: 12/08/20 07:25 Last Admin: 11/09/20 16:16 Dose: 650 mg Documented by: Acetaminophen (Acetaminophen 500 Mg Tab) 500 mg PO HS PRN PRN Reason: Sleep Stop: 12/08/20 08:24 Carbidopa/Levodopa (Carbidopa/Levodopa 25/100mg Tab) 1 tab PO BID [facility] Stop: 12/08/20 08:59 Last Admin: 11/10/20 08:11 Dose: 1 tab Documented by: Diphenhydramine HCl (Diphenhydramine Capsule 25 Mg Cap) 25 mg PO HS PRN PRN Reason: Sleep Stop: 12/08/20 08:23 Docusate Sodium (Docusate Sodium 100 Mg Cap) 100 mg PO BID PRN PRN Reason: Constipation Stop: 12/08/20 07:25 Doxycycline Hyclate (Doxycycline Hyclate 100 Mg Cap) 100 mg PO BID [facility] Stop: 11/15/20 08:59 Last Admin: 11/10/20 08:11 Dose: 100 mg Documented by: Ergocalciferol (Ergocalciferol 50,000 Units 1250 Mcg Cap) 50,000 units PO MoFr@0900 [facility] Stop: 12/10/20 08:59 Last Admin: 11/10/20 08:11 Dose: 50,000 units Documented by: Escitalopram Oxalate (Escitalopram Oxalate 10 Mg Tab) 10 mg PO QAM [facility] Stop: 12/08/20 08:59 Last Admin: 11/10/20 08:11 Dose: 10 mg Documented by: Famotidine (Famotidine 10 Mg Tablet) 10 mg PO BID [facility] Stop: 12/08/20 08:59 Last Admin: 11/10/20 08:11 Dose: 10 mg Documented by: Gabapentin (Gabapentin 300 Mg Cap) 300 mg PO HS [facility] Stop: 12/08/20 20:59 Last Admin: 11/09/20 21:46 Dose: 300 mg Documented by: Piperacillin Sod/Tazobactam (Sod 3.375 gm/ Dextrose) 115 mls @ 28.75 mls/hr IV Q8H [facility]; Protocol Stop: 11/10/20 18:00 Last Admin: 11/10/20 13:50 Dose: 28.8 mls/hr Documented by: Heparin Sodium/Dextrose (Heparin Sodium/Dextrose) 25,000 units in 500 mls @ 15 mls/hr IV .Q24H [facility]; Protocol Stop: 12/08/20 09:29 Last Titration: 11/10/20 15:46 Dose: 750 units/hr, 15 mls/hr Documented by: Ceftriaxone Sodium 2,000 mg/ (Dextrose) 70 mls @ 140 mls/hr IV Q24H [facility]; Protocol Stop: 11/14/20 21:29 Levothyroxine Sodium (Levothyroxine Sodium 50 Mcg Tablet) 50 mcg PO DAILYBB [facility] Stop: 12/08/20 08:59 Last Admin: 11/10/20 06:15 Dose: 50 mcg Documented by: Lorazepam (Lorazepam 1 Mg Tab) 1 - 2 mg PO DAILY PRN PRN Reason: Anxiety/Insomnia Stop: 12/08/20 08:26 Montelukast Sodium (Montelukast Sodium 10 Mg Tablet) 10 mg PO [facility] Stop: 12/08/20 08:59 Last Admin: 11/10/20 08:11 Dose: 10 mg Documented by: Morphine Sulfate (Morphine Sulfate 4 Mg/Ml 1 Ml Carp\Vial) 4 mg IV Q6H PRN PRN Reason: Pain Stop: 11/22/20 11:32 Last Admin: 11/08/20 11:55 Dose: 4 mg Documented by: Nitroglycerin (Nitroglycerin Sl 0.4 Mg/Tab Tab) 0.4 mg SL UD PRN PRN Reason: Chest Pain Stop: 12/08/20 07:25 Ondansetron HCl (Ondansetron 4 Mg Od Tab) 4 mg PO Q8H PRN PRN Reason: Nausea Stop: 12/08/20 08:04 Last Admin: 11/10/20 03:01 Dose: 4 mg Documented by: Pantoprazole Sodium (Pantoprazole 40 Mg Tab) 40 mg PO [facility]; Protocol Stop: 12/08/20 08:59 Last Admin: 11/10/20 08:11 Dose: 40 mg Documented by: Potassium Chloride (Potassium Chloride 10 Meq Tabcr) 10 meq PO [facility] Stop: 12/08/20 08:59 Last Admin: 11/10/20 08:11 Dose: 10 meq Documented by: Ropinirole HCl (Ropinirole Hcl 1 Mg Tablet) 1 mg PO [facility] Stop: 12/08/20 20:59 Last Admin: 11/09/20 21:46 Dose: 1 mg Documented by: Warfarin Sodium (Warfarin Sod 5 Mg Tab) 5 mg PO DAILY@1600 [facility] Stop: 12/09/20 15:59 Last Admin: 11/10/20 16:04 Dose: 5 mg Documented by: (1) Pneumonia Laterality: bilateral Lung location: lower lobe of lung Pneumonia type: due to unspecified organism Qualified Code(s): J18.9 - Pneumonia, unspecified organism
[2020-11-10] MEDS: GABAPENTIN 300 MG CAP PO SCH (21:19)
[2020-11-10] MEDS: rOPINIRole HCL 1 MG TABLET PO SCH (21:20)
[2020-11-10] MEDS: cefTRIAXone SODIUM 2,000 MG in DEXTROSE 5% 50 ML IV SCH (21:22)
[2020-11-10] MEDS: LORazepam 1 MG TAB PO PRN (21:23)
[2020-11-10 22:10] LABS: Partial Thromboplastin Ratio 2.2
[2020-11-10 22:18] LABS: Partial Thromboplastin Time 62.2 Seconds (21.0-31.0)
[2020-11-11] MEDS ORDERED: COUGH DROP (SUGAR FREE) LOZ 24 LOZ/1 BOX BUCCAL PRN (06:04)
[2020-11-11] MEDS: LEVOTHYROXINE SODIUM 50 MCG TABLET PO SCH (06:12)
[2020-11-11] MEDS: HEPARIN SODIUM/DEXTROSE 25,000 UNITS/500 ML BAG IV SCH ×2 (07:00→08:30)
[2020-11-11 08:03] LABS: INR 4.5 (0.9-1.1); Partial Thromboplastin Ratio 2.9; Prothrombin Time 43.6 Seconds (9.0-12.0)
[2020-11-11 08:09] LABS: Partial Thromboplastin Time 81.7 Seconds (21.0-31.0)
[2020-11-11] MEDS: POTASSIUM CHLORIDE 10 MEQ TABCR PO SCH (08:25)
[2020-11-11] MEDS: MONTELUKAST SODIUM 10 MG TABLET PO SCH (08:26)
[2020-11-11] MEDS: PANTOprazole 40 MG TAB PO SCH (08:26)
[2020-11-11] MEDS: DOXYCYCLINE HYCLATE 100 MG CAP PO SCH ×2 (08:26→20:49)
[2020-11-11] MEDS: ESCITALOPRAM OXALATE 10 MG TAB PO SCH (08:26)
[2020-11-11] MEDS: FAMOTIDINE 10 MG TABLET PO SCH ×2 (08:27→20:49)
[2020-11-11] MEDS: CARBIDOPA/LEVODOPA 25/100MG TAB PO SCH ×2 (08:27→20:49)
[2020-11-11 12:18] LABS: Appearance Urine Clear (Clear); Bilirubin Urine Negative (Negative); Blood Urine Negative (Negative); Color Urine Yellow; Glucose Urine UA Negative (Negative); Ketones Urine Negative (Negative); Leukocyte Esterase Urine Negative (Negative); Nitrite Urine Negative (Negative); Protein Urine Negative (Negative); Urobilinogen Urine Negative (Negative); pH Urine 7.5 (4.5-7.5)
--- NOTE | 2020-11-11 15:32 | Hospitalist Progress Note ---
Date of Service November 11, 2020 Assessment & Plan (1) Acute pulmonary embolism: Admitted with fever shortness of breath and cough with recent history of COVID-19 infection Noted to have bilateral multiple pulmonary emboli on CTA Ultrasound of the legs when not done as it will not change the treatment plan Started with intravenous heparin Discussed with the patient and she prefers to take Coumadin as her has been on Coumadin Has been feeling better since admission We will start 5 mg Coumadin from today Denies any other significant symptoms PT and OT recommended home INR is supratherapeutic today-we will hold Coumadin and continue heparin for now Likely discharge tomorrow (2) Pneumonia: Likely has community acquired pneumonia with recent history of COVID-19 infection Has been on doxycycline and Zosyn IV Zosyn has been changed to intravenous Rocephin To be discharged home on oral doxycycline (3) COVID-19: Recent infection with COVID-19 which was treated accordingly This admission she was noted to be positive to without any significant desaturation Treatment with remdesivir and dexamethasone or plasma were not indicated She can come out of isolation and it has been about 27 days since Covid diagnosis He is out of isolation (4) Depression: No acute delirium (5) Hypothyroidism: We will continue replacement (6) GERD (gastroesophageal reflux disease): We will continue PPI DVT prophylaxis Has been on heparin plus Coumadin CODE STATUS Full Admission and Anticipated Discharge Date Admission Date: November 08, 2020 Subjective 11/09/2020 The patient was seen and examined in medical telemetry unit She complains to have some cough but denies any more chest pain and/or shortness of breath Denies any fever and/or chills, any abdominal pain nausea and/or vomiting 11/10/2020 The patient was seen and examined in medical floor She has been complaining of some cough and minimal shortness of breath at rest Denies any chest pain and/or palpitation, denies any abdominal pain, nausea and/or vomiting 11/11/2020 The patient was seen and examined in medical floor She has been feeling a lot better today and complains to have some cough without any shortness of breath Denies any other symptoms Review of Systems Review of Systems: All systems reviewed and are unremarkable except as noted below Respiratory: + cough; no dyspnea Physical Exam Physical Exam: Lying in bed without any distress Constitutional: + ill appearing and + thin; no acute distress (Cough and minimal shortness of) Eyes: PERRL, conjunctivae normal, anicteric sclerae ENMT: external ear and nose normal, oropharynx normal Neck: trachea midline, no thyromegaly Respiratory: normal respiratory effort, lungs clear to auscultation normal respiratory effort Auscultation: + diminished lung sounds and + crackles (Minimal crackles at the bases) Cardiovascular: Rate/Rhythm: regular rate and regular rhythm Heart Sounds: no murmur Extremities: no edema Gastrointestinal (Abdomen): Inspection/Auscultation: abdomen normal to inspection and normal bowel sounds; abdomen not distended Percussion/Palpation: abdomen soft; abdomen nontender Musculoskeletal: No acute arthritis in any joint Neurologic: Alert, awake and oriented x3. No focal sensory and motor deficit appreciated Psychiatric: A+Ox3, euthymic affect Lymphatic: no cervical or axillary lymphadenopathy Results & Data Results & Data ([facility]) Vital Signs (Past 12 Hours) Vital Signs Temp Pulse Resp BP Pulse Ox 11/11/20 15:15 36.7 C 112 H 18 112/68 93 11/11/20 07:27 37.0 C 114 H 20 132/86 93 Laboratory Results Urine 11/11/20 Range/Units 12:05 Urine Color Yellow Urine Appearance Clear (Clear) Urine pH 7.5 (4.5-7.5) Ur Specific [place] 1.010 (1.000-1.030) Urine Protein Negative (Negative) Urine Glucose (UA) Negative (Negative) Medications Administered Current Inpatient Medications Acetaminophen (Acetaminophen 325 Mg Tab) 650 mg PO Q4H PRN PRN Reason: Pain or Fever Stop: 12/08/20 07:25 Last Admin: 11/09/20 16:16 Dose: 650 mg Documented by: Acetaminophen (Acetaminophen 500 Mg Tab) 500 mg PO HS PRN PRN Reason: Sleep Stop: 12/08/20 08:24 Carbidopa/Levodopa (Carbidopa/Levodopa 25/100mg Tab) 1 tab PO BID [facility] Stop: 12/08/20 08:59 Last Admin: 11/11/20 08:27 Dose: 1 tab Documented by: Diphenhydramine HCl (Diphenhydramine Capsule 25 Mg Cap) 25 mg PO HS PRN PRN Reason: Sleep Stop: 12/08/20 08:23 Docusate Sodium (Docusate Sodium 100 Mg Cap) 100 mg PO BID PRN PRN Reason: Constipation Stop: 12/08/20 07:25 Doxycycline Hyclate (Doxycycline Hyclate 100 Mg Cap) 100 mg PO BID [facility] Stop: 11/15/20 08:59 Last Admin: 11/11/20 08:26 Dose: 100 mg Documented by: Ergocalciferol (Ergocalciferol 50,000 Units 1250 Mcg Cap) 50,000 units PO MoFr@0900 [facility] Stop: 12/10/20 08:59 Last Admin: 11/10/20 08:11 Dose: 50,000 units Documented by: Escitalopram Oxalate (Escitalopram Oxalate 10 Mg Tab) 10 mg PO QAM [facility] Stop: 12/08/20 08:59 Last Admin: 11/11/20 08:26 Dose: 10 mg Documented by: Famotidine (Famotidine 10 Mg Tablet) 10 mg PO BID [facility] Stop: 12/08/20 08:59 Last Admin: 11/11/20 08:27 Dose: 10 mg Documented by: Gabapentin (Gabapentin 300 Mg Cap) 300 mg PO HS [facility] Stop: 12/08/20 20:59 Last Admin: 11/10/20 21:19 Dose: 300 mg Documented by: Guaifenesin/Dextromethorphan (Guaifenesin/Dextrom Syrup 200mg/20mg 10ml Udc) 10 ml PO Q6H PRN PRN Reason: Cough Stop: 12/11/20 15:28 Heparin Sodium/Dextrose (Heparin Sodium/Dextrose) 25,000 units in 500 mls @ 14 mls/hr IV .Q24H [facility]; Protocol Stop: 12/08/20 09:29 Last Titration: 11/11/20 15:07 Dose: 700 units/hr, 14 mls/hr Documented by: Ceftriaxone Sodium 2,000 mg/ (Dextrose) 70 mls @ 140 mls/hr IV Q24H [facility]; Protocol Stop: 11/14/20 21:29 Last Infusion: 11/10/20 22:10 Dose: Infused Documented by: Levothyroxine Sodium (Levothyroxine Sodium 50 Mcg Tablet) 50 mcg PO DAILYBB [facility] Stop: 12/08/20 08:59 Last Admin: 11/11/20 06:12 Dose: 50 mcg Documented by: Lorazepam (Lorazepam 1 Mg Tab) 1 - 2 mg PO DAILY PRN PRN Reason: Anxiety/Insomnia Stop: 12/08/20 08:26 Last Admin: 11/10/20 21:23 Dose: 1 mg Documented by: Menthol (Cough Drop (Sugar Free) [place] 24 Alban/1 Box) 1 alban [place]CCAL NOW PRN PRN Reason: Sore Throat Stop: 12/11/20 06:03 Last Admin: 11/11/20 06:12 Dose: 1 alban Documented by: Montelukast Sodium (Montelukast Sodium 10 Mg Tablet) 10 mg PO [facility] Stop: 12/08/20 08:59 Last Admin: 11/11/20 08:26 Dose: 10 mg Documented by: Morphine Sulfate (Morphine Sulfate 4 Mg/Ml 1 Ml Carp\Vial) 4 mg IV Q6H PRN PRN Reason: Pain Stop: 11/22/20 11:32 Last Admin: 11/08/20 11:55 Dose: 4 mg Documented by: Nitroglycerin (Nitroglycerin Sl 0.4 Mg/Tab Tab) 0.4 mg SL UD PRN PRN Reason: Chest Pain Stop: 12/08/20 07:25 Ondansetron HCl (Ondansetron 4 Mg Od Tab) 4 mg PO Q8H PRN PRN Reason: Nausea Stop: 12/08/20 08:04 Last Admin: 11/10/20 03:01 Dose: 4 mg Documented by: Pantoprazole Sodium (Pantoprazole 40 Mg Tab) 40 mg PO [facility]; Protocol Stop: 12/08/20 08:59 Last Admin: 11/11/20 08:26 Dose: 40 mg Documented by: Potassium Chloride (Potassium Chloride 10 Meq Tabcr) 10 meq PO [facility] Stop: 12/08/20 08:59 Last Admin: 11/11/20 08:25 Dose: 10 meq Documented by: Ropinirole HCl (Ropinirole Hcl 1 Mg Tablet) 1 mg PO HS [facility] Stop: 12/08/20 20:59 Last Admin: 11/10/20 21:20 Dose: 1 mg Documented by: Warfarin Sodium (Warfarin Sod 5 Mg Tab) 5 mg PO DAILY@1600 [facility] Stop: 12/09/20 15:59 Last Admin: 11/10/20 16:04 Dose: 5 mg Documented by: (1) Pneumonia Laterality: bilateral Lung location: lower lobe of lung Pneumonia type: due to unspecified organism Qualified Code(s): J18.9 - Pneumonia, unspecified organism
[2020-11-11] MEDS ORDERED: guaiFENesin/DEXTROM SYRUP 200MG/20MG 10ML UDC PO PRN (16:00)
[2020-11-11 16:13] LABS: Partial Thromboplastin Ratio 2.8
[2020-11-11 16:41] LABS: Partial Thromboplastin Time 78.6 Seconds (21.0-31.0)
[2020-11-11] MEDS: ONDANSETRON 4 MG OD TAB PO PRN (20:45)
[2020-11-11] MEDS: rOPINIRole HCL 1 MG TABLET PO SCH (20:49)
[2020-11-11] MEDS: GABAPENTIN 300 MG CAP PO SCH (20:49)
[2020-11-11] MEDS: LORazepam 1 MG TAB PO PRN (20:49)
[2020-11-11] MEDS: cefTRIAXone SODIUM 2,000 MG in DEXTROSE 5% 50 ML IV SCH (21:14)
[2020-11-11 23:39] LABS: Partial Thromboplastin Ratio 3.3
[2020-11-11 23:49] LABS: Partial Thromboplastin Time 92.6 Seconds (21.0-31.0)
[2020-11-12] MEDS: LEVOTHYROXINE SODIUM 50 MCG TABLET PO SCH (05:42)
[2020-11-12 07:01] LABS: Basophils # (auto) 0.02 K/uL (0-0.2); Basophils % (auto) 0.4 %; Eosinophils % (auto) 7.3 %; Hemoglobin 11.1 g/dL (12.0-16.0); Immature Granulocytes # (auto) 0.05 K/uL (0.00-0.02); Immature Granulocytes % (auto) 0.9 %; Lymphocytes # (auto) 1.18 K/uL (1.2-3.4); Lymphocytes % (auto) 21.5 %; Mean Corpuscular Hemoglobin 31.5 pg (25-34); Mean Corpuscular Hgb Conc 33.6 g/dL (32-36); Mean Corpuscular Volume 93.8 fL (80-100); Mean Platelet Volume 8.6 fL (7.4-10.4); Monocytes # (auto) 0.55 K/uL (0.11-0.59); Neutrophils # (auto) 3.29 K/uL (1.4-6.5); Neutrophils % (auto) 59.9 %; Platelet Count 389 K/uL (130-400); RDW Coefficient of Variation 14.7 % (11.5-14.5); RDW Standard Deviation 49.7 fL (36.4-46.3); Red Blood Count 3.52 M/uL (4.2-5.4); White Blood Count 5.49 K/uL (4.8-10.8)
[2020-11-12 07:22] LABS: INR 4.8 (0.9-1.1); Partial Thromboplastin Ratio 2.1; Prothrombin Time 46.6 Seconds (9.0-12.0)
[2020-11-12 07:30] LABS: BUN Creatinine Ratio 7.1 (10-20); Calcium 8.9 mg/dl (8.5-10.1); Creatinine Clr Calc Pharmacy 47.5 ml/min; Est GFR (African American) 91.7; Est GFR (Non-African American) 79.1; Potassium 3.5 mmol/L (3.5-5.1)
[2020-11-12 07:36] LABS: Partial Thromboplastin Time 57.8 Seconds (21.0-31.0)
[2020-11-12] MEDS: DOXYCYCLINE HYCLATE 100 MG CAP PO SCH (08:20)
[2020-11-12] MEDS: FAMOTIDINE 10 MG TABLET PO SCH (08:20)
[2020-11-12] MEDS: CARBIDOPA/LEVODOPA 25/100MG TAB PO SCH (08:21)
[2020-11-12] MEDS: MONTELUKAST SODIUM 10 MG TABLET PO SCH (08:21)
[2020-11-12] MEDS: POTASSIUM CHLORIDE 10 MEQ TABCR PO SCH (08:21)
[2020-11-12] MEDS: ESCITALOPRAM OXALATE 10 MG TAB PO SCH (08:21)
[2020-11-12] MEDS: PANTOprazole 40 MG TAB PO SCH (08:21)
--- NOTE | 2020-11-12 12:50 | Hospitalist Progress Note ---
Date of Service November 12, 2020 Assessment & Plan (1) Acute pulmonary embolism: Admitted with fever shortness of breath and cough with recent history of COVID-19 infection Noted to have bilateral multiple pulmonary emboli on CTA Ultrasound of the legs when not done as it will not change the treatment plan Started with intravenous heparin Discussed with the patient and she prefers to take Coumadin as her has been on Coumadin Has been feeling better since admission We will start 5 mg Coumadin from today Denies any other significant symptoms PT and OT recommended home INR is supratherapeutic today-we will hold Coumadin and continue heparin for now Will DC heparin today We will get PT and OT evaluation before discharge home this afternoon (2) Pneumonia: Likely has community acquired pneumonia with recent history of COVID-19 infection Has been on doxycycline and Zosyn IV Zosyn has been changed to intravenous Rocephin To be discharged home on oral doxycycline We will continue doxycycline for a total of 7 days (3) COVID-19: Recent infection with COVID-19 which was treated accordingly This admission she was noted to be positive to without any significant desaturation Treatment with remdesivir and dexamethasone or plasma were not indicated She can come out of isolation and it has been about 27 days since Covid diagnosis He is out of isolation Will do to do steps O2 saturation before discharging home (4) Depression: No acute delirium (5) Hypothyroidism: We will continue replacement (6) GERD (gastroesophageal reflux disease): We will continue PPI DVT prophylaxis Has been on heparin plus Coumadin CODE STATUS Full Admission and Anticipated Discharge Date Admission Date: November 08, 2020 Subjective 11/09/2020 The patient was seen and examined in medical telemetry unit She complains to have some cough but denies any more chest pain and/or shortness of breath Denies any fever and/or chills, any abdominal pain nausea and/or vomiting 11/10/2020 The patient was seen and examined in medical floor She has been complaining of some cough and minimal shortness of breath at rest Denies any chest pain and/or palpitation, denies any abdominal pain, nausea and/or vomiting 11/11/2020 The patient was seen and examined in medical floor She has been feeling a lot better today and complains to have some cough without any shortness of breath Denies any other symptoms 11/12/2020 The patient was seen and examined in medical floor She complains to have some cough without any significant shortness of breath Complains of pain in multiple joints Review of Systems Review of Systems: All systems reviewed and are unremarkable except as noted below Respiratory: + cough; no dyspnea Musculoskeletal: + back pain Physical Exam Physical Exam: Lying in bed without any distress Constitutional: + thin; no acute distress (Cough and minimal shortness of) and not ill appearing Eyes: PERRL, conjunctivae normal, anicteric sclerae ENMT: external ear and nose normal, oropharynx normal Neck: trachea midline, no thyromegaly Respiratory: normal respiratory effort, lungs clear to auscultation normal respiratory effort Auscultation: + diminished lung sounds and + crackles (Minimal crackles at the bases) Cardiovascular: Rate/Rhythm: regular rate and regular rhythm Heart Sounds: no murmur Extremities: no edema Gastrointestinal (Abdomen): Inspection/Auscultation: abdomen normal to inspection and normal bowel sounds; abdomen not distended Percussion/Palpation: abdomen soft; abdomen nontender Musculoskeletal: No acute arthritis in any joint Neurologic: Generally weak otherwise alert, awake and orientedx3 Psychiatric: A+Ox3, euthymic affect Lymphatic: no cervical or axillary lymphadenopathy Results & Data Results & Data ([facility]) Vital Signs (Past 12 Hours) Vital Signs Temp Pulse Pulse Pulse Pulse Resp Resp 11/12/20 11:27 104 H 101 H 92 H 16 11/12/20 07:57 37.1 C 92 H 18 Resp Resp BP Pulse Ox Pulse Ox Pulse Ox Pulse Ox 11/12/20 11:27 16 16 92 95 94 11/12/20 07:57 135/82 93 Laboratory Results Short CBC 11/12/20 Range/Units 06:37 WBC 5.49 (4.8-10.8) K/uL Hgb 11.1 L (12.0-16.0) g/dL Hct 33.0 L (37-47) % Plt Count 389 (130-400) K/uL BMP 11/12/20 06:37 Sodium 139 Potassium 3.5 Chloride 107 Carbon Dioxide 24 BUN 5 L Creatinine 0.72 Glucose 81 Calcium 8.9 Medications Administered Current Inpatient Medications Acetaminophen (Acetaminophen 325 Mg Tab) 650 mg PO Q4H PRN PRN Reason: Pain or Fever Stop: 12/08/20 07:25 Last Admin: 11/09/20 16:16 Dose: 650 mg Documented by: Acetaminophen (Acetaminophen 500 Mg Tab) 500 mg PO HS PRN PRN Reason: Sleep Stop: 12/08/20 08:24 Carbidopa/Levodopa (Carbidopa/Levodopa 25/100mg Tab) 1 tab PO BID [facility] Stop: 12/08/20 08:59 Last Admin: 11/12/20 08:21 Dose: 1 tab Documented by: Diphenhydramine HCl (Diphenhydramine Capsule 25 Mg Cap) 25 mg PO HS PRN PRN Reason: Sleep Stop: 12/08/20 08:23 Last Admin: 11/12/20 06:02 Dose: 25 mg Documented by: Docusate Sodium (Docusate Sodium 100 Mg Cap) 100 mg PO BID PRN PRN Reason: Constipation Stop: 12/08/20 07:25 Doxycycline Hyclate (Doxycycline Hyclate 100 Mg Cap) 100 mg PO BID [facility] Stop: 11/15/20 08:59 Last Admin: 11/12/20 08:20 Dose: 100 mg Documented by: Ergocalciferol (Ergocalciferol 50,000 Units 1250 Mcg Cap) 50,000 units PO MoFr@0900 [facility] Stop: 12/10/20 08:59 Last Admin: 11/10/20 08:11 Dose: 50,000 units Documented by: Escitalopram Oxalate (Escitalopram Oxalate 10 Mg Tab) 10 mg PO QAM [facility] Stop: 12/08/20 08:59 Last Admin: 11/12/20 08:21 Dose: 10 mg Documented by: Famotidine (Famotidine 10 Mg Tablet) 10 mg PO BID [facility] Stop: 12/08/20 08:59 Last Admin: 11/12/20 08:20 Dose: 10 mg Documented by: Gabapentin (Gabapentin 300 Mg Cap) 300 mg PO HS [facility] Stop: 12/08/20 20:59 Last Admin: 11/11/20 20:49 Dose: 300 mg Documented by: Guaifenesin/Dextromethorphan (Guaifenesin/Dextrom Syrup 200mg/20mg 10ml Udc) 10 ml PO Q6H PRN PRN Reason: Cough Stop: 12/11/20 15:59 Last Admin: 11/11/20 21:15 Dose: 10 ml Documented by: Levothyroxine Sodium (Levothyroxine Sodium 50 Mcg Tablet) 50 mcg PO DAILYBB [facility] Stop: 12/08/20 08:59 Last Admin: 11/12/20 05:42 Dose: 50 mcg Documented by: Lorazepam (Lorazepam 1 Mg Tab) 1 - 2 mg PO DAILY PRN PRN Reason: Anxiety/Insomnia Stop: 12/08/20 08:26 Last Admin: 11/11/20 20:49 Dose: 1 mg Documented by: Menthol (Cough Drop (Sugar Free) Alban 24 Alban/1 Box) 1 alban BUCCAL NOW PRN PRN Reason: Sore Throat Stop: 12/11/20 06:03 Last Admin: 11/11/20 06:12 Dose: 1 alban Documented by: Montelukast Sodium (Montelukast Sodium 10 Mg Tablet) 10 mg PO [facility] Stop: 12/08/20 08:59 Last Admin: 11/12/20 08:21 Dose: 10 mg Documented by: Morphine Sulfate (Morphine Sulfate 4 Mg/Ml 1 Ml Carp\Vial) 4 mg IV Q6H PRN PRN Reason: Pain Stop: 11/22/20 11:32 Last Admin: 11/08/20 11:55 Dose: 4 mg Documented by: Nitroglycerin (Nitroglycerin Sl 0.4 Mg/Tab Tab) 0.4 mg SL UD PRN PRN Reason: Chest Pain Stop: 12/08/20 07:25 Ondansetron HCl (Ondansetron 4 Mg Od Tab) 4 mg PO Q8H PRN PRN Reason: Nausea Stop: 12/08/20 08:04 Last Admin: 11/11/20 20:45 Dose: 4 mg Documented by: Pantoprazole Sodium (Pantoprazole 40 Mg Tab) 40 mg PO [facility]; Protocol Stop: 12/08/20 08:59 Last Admin: 11/12/20 08:21 Dose: 40 mg Documented by: Potassium Chloride (Potassium Chloride 10 Meq Tabcr) 10 meq PO [facility] Stop: 12/08/20 08:59 Last Admin: 11/12/20 08:21 Dose: 10 meq Documented by: Ropinirole HCl (Ropinirole Hcl 1 Mg Tablet) 1 mg PO HS [facility] Stop: 12/08/20 20:59 Last Admin: 11/11/20 20:49 Dose: 1 mg Documented by: Warfarin Sodium (Warfarin Sod 5 Mg Tab) 5 mg PO DAILY@1600 [facility] Stop: 12/09/20 15:59 Last Admin: 11/10/20 16:04 Dose: 5 mg Documented by: (1) Pneumonia Laterality: bilateral Lung location: lower lobe of lung Pneumonia type: due to unspecified organism Qualified Code(s): J18.9 - Pneumonia, unspecified organism
--- NOTE | 2020-11-13 08:23 | Discharge Summary ---
Date of Service November 13, 2020 Admission HPI Per Admitting Provider DICTATED BY: Brandon Schwarz MD DATE OF ADMISSION: 11/08/2020 CHIEF COMPLAINT: Fever, shortness of breath and cough. HISTORY OF PRESENT ILLNESS: This 80-year-old female with past medical history significant for Parkinson's disease, hypothyroidism, hypopotassemia, hyperlipidemia, history of CVA, GERD, anxiety, insomnia, depression, history of spinal stenosis, status post lumbar spine surgery, comes here because of fever and cough and shortness of breath. The patient was admitted on 10/14/2020 with COVID 19. She was treated with remdesivir and dexamethasone and got discharged on 10/22/2020. Her recently with COVID. She lives with her son. The patient says the last 2 days she is having coughing, bringing up greenish phlegm and today she has a fever and chills. So the family brought her to the hospital and when she came in, she was saturating 86% on room air, on 2 liters saturating 95%.Hemodynamically stable, no leukocytosis. Still has some leukopenia, improved from last admission. Troponin negative. Flu negative. Chest x-ray showing bilateral interstitial airspace opacities. The patient says she is feeling fine. Denies any chest pain. She says she always has some shortness of breath. Denies any nausea, vomiting. No abdominal pain, no headache, no blurred vision, no earache, no runny nose, no sore throat. Ambulating okay in the ER room. Normal bowel and bladder movements. No abdominal pain. She says appetite is okay. No loss of sense of smell or taste. Admission Exam Per Admitting Provider GENERAL: The patient is of moderate build, not in acute distress. VITAL SIGNS: Temperature, T-max 38.1, pulse 93, oxygen 96% on room air, currently 98% on 2 liters, blood pressure 117/64. HEENT: No pallor, no icterus. Oral mucosa moist. NECK: No neck masses seen. CARDIOVASCULAR: S1, S2 heard, regular rate and rhythm, no murmur, no gallop. RESPIRATORY SYSTEM: Normal AP diameter. No accessory muscle use. No wheezing, no crackles. ABDOMEN: Soft, bowel sounds present, nontender. No distention. CENTRAL NERVOUS SYSTEM: Cranial nerves II-XII grossly intact. Nonfocal. EXTREMITIES: No edema, no erythema. Principal Diagnosis Acute pulmonary embolism likely secondary to decreased mobility, recent COVID-19 infection, depression, hypothyroidism Discharge Exam Constitutional + thin; no acute distress (Cough and minimal shortness of) and not ill appearing Eyes PERRL, conjunctivae normal, anicteric sclerae ENMT external ear and nose normal, oropharynx normal Neck trachea midline, no thyromegaly Respiratory normal respiratory effort, lungs clear to auscultation normal respiratory effort Auscultation: + diminished lung sounds and + crackles (Minimal crackles at the bases) Cardiovascular Rate/Rhythm: regular rate and regular rhythm Heart Sounds: no murmur Extremities: no edema Gastrointestinal (Abdomen) Inspection/Auscultation: abdomen normal to inspection and normal bowel sounds; abdomen not distended Percussion/Palpation: abdomen soft; abdomen nontender Psychiatric A+Ox3, euthymic affect Lymphatic no cervical or axillary lymphadenopathy Discharge Data Allergies Allergy/AdvReac Type Severity Reaction Status Date / Time cyclobenzaprine Allergy Severe ANAPHYLAXIS Verified 11/07/20 22:30 Sulfa (Sulfonamide Allergy Severe Shortness Verified 11/07/20 22:30 Antibiotics) of Breath, Rash tolterodine AdvReac Mild DRY MOUTH Verified 11/07/20 22:30 Consultations 11/07/20 23:24 ED Decision to Admit Stat 11/08/20 07:26 Consult Case Management - Discharge Planning Routine Ordered Studies 11/08/20 03:16 CT angio chest PE protocol Stat Hospital Course (1) Acute pulmonary embolism: Admitted with fever shortness of breath and cough with recent history of COVID-19 infection Noted to have bilateral multiple pulmonary emboli on CTA Ultrasound of the legs when not done as it will not change the treatment plan Started with intravenous heparin Discussed with the patient and she prefers to take Coumadin as her has been on Coumadin Has been feeling better since admission We will start 5 mg Coumadin from today Denies any other significant symptoms PT and OT recommended home INR is supratherapeutic today-we will hold Coumadin and continue heparin for now Will DC heparin today We will get PT and OT evaluation before discharge home this afternoon (2) Pneumonia: Likely has community acquired pneumonia with recent history of COVID-19 infection Has been on doxycycline and Zosyn IV Zosyn has been changed to intravenous Rocephin To be discharged home on oral doxycycline We will continue doxycycline for a total of 7 days (3) COVID-19: Recent infection with COVID-19 which was treated accordingly This admission she was noted to be positive to without any significant desaturation Treatment with remdesivir and dexamethasone or plasma were not indicated She can come out of isolation and it has been about 27 days since Covid diagnosis He is out of isolation Will do to do steps O2 saturation before discharging home (4) Depression: No acute delirium (5) Hypothyroidism: We will continue replacement (6) GERD (gastroesophageal reflux disease): We will continue PPI DVT prophylaxis Has been on heparin plus Coumadin CODE STATUS Full Total Time Total Time Spent Total Time Spent (In Minutes): 35 minutes Total Time Includes: Examination of the Patient, Discharge Planning, Medication Reconciliation and Communication With Other Providers Discharge Plan Discharge Items Patient Disposition: Home - Self-Care Reason For Visit: FEVER/COUGH Discharge Diagnosis: Acute pulmonary embolism likely secondary to decreased mobility, recent COVID-19 infection, depression, hypothyroidism Condition on Discharge: Good Activity: Resume your previous activity Non-emergency contact: Primary Care Provider Call non-emergency contact if: you have any medication questions and your symp toms worsen Follow-up/Referrals: Tracey Vides PA-C [Primary Care Provider] - 11/17/20 12:30 pm (Date & Time 11/17/2020 12:30 PM Provider Vika Castellanos DO Department [facility] PLEASE NOTE THAT THIS IS A TELEPHONE APPOINTMENT. YOUR PHYSICIAN WILL CALL YOU AT THE APPOINTMENT TIME. IF YOU HAVE ANY QUESTIONS, PLEASE CALL ) Diet: Heart Healthy Addtl Attending Provider Instructions: Please take precaution to avoid falls Have regular follow-up with the coagulation clinic to maintain your INR in between 2-3 Do not take any Coumadin today-have your INR checked tomorrow and then get the instructions from the coagulation clinic Home Isolation COVID-19 Instructions The following information about Home Isolation is from the CDC Website: https://www.cdc.gov/coronavirus/2019-ncov/hcp/qdiclhxa-wmzeoou-fafgkm.html Stay home except to get medical care People who are mildly ill with COVID-19 are able to isolate at home during their illness. You should restrict activities outside your home, except for getting medical care. Do not go to work, school, or public areas. Avoid using public transportation, ride-sharing, or taxis. Separate yourself from other people and animals in your home People: As much as possible, you should stay in a specific room and away from other people in your home. Also, you should use a separate bathroom, if available. Animals: You should restrict contact with pets and other animals while you are sick with COVID-19, just like you would around other people. Although there have not been reports of pets or other animals becoming sick with COVID-19, it is still recommended that people sick with COVID-19 limit contact with animals until more information is known about the virus. When possible, have another member of your household care for your animals while you are sick. If you are sick with COVID-19, avoid contact with your pet, including petting, snuggling, being kissed or licked, and sharing food. If you must care for your pet or be around animals while you are sick, wash your hands before and after you interact with pets and wear a face mask. Call ahead before visiting your doctor If you have a medical appointment, call the healthcare provider and tell them that you have or may have COVID-19. This will help the healthcare providers office take steps to keep other people from getting infected or exposed. Wear a face mask You should wear a face mask when you are around other people (e.g., sharing a room or vehicle) or pets and before you enter a healthcare providers office. If you are not able to wear a face mask (for example, because it causes trouble breathing), then people who live with you should not stay in the same room with you, or they should wear a face mask if they enter your room. Cover your coughs and sneezes Cover your mouth and nose with a tissue when you cough or sneeze. Throw used tissues in a lined trash can. Immediately wash your hands with soap and water for at least 20 seconds or, if soap and water are not available, clean your hands with an alcohol-based hand analytical sciences director that contains at least 60% alcohol. Clean your hands often Wash your hands often with soap and water for at least 20 seconds, especially after blowing your nose, coughing, or sneezing; going to the bathroom; and before eating or preparing food. If soap and water are not readily available, use an alcohol-based hand analytical sciences director with at least 60% alcohol, covering all surfaces of your hands and rubbing them together until they feel dry. Soap and water are the best option if hands are visibly dirty. Avoid touching your eyes, nose, and mouth with unwashed hands. Avoid sharing personal household items You should not share dishes, drinking glasses, cups, eating utensils, towels, or bedding with other people or pets in your home. After using these items, they should be washed thoroughly with soap and water. Clean all high-touch surfaces everyday High touch surfaces include counters, tabletops, doorknobs, bathroom fixtures, toilets, phones, keyboards, tablets, and bedside tables. Also, clean any surfaces that may have blood, stool, or body fluids on them. Use a household cleaning spray or wipe, according to the label instructions. Labels contain instructions for safe and effective use of the cleaning product including precautions you should take when applying the product, such as wearing gloves and making sure you have good ventilation during use of the product. Monitor your symptoms Seek prompt medical attention if your illness is worsening (e.g., difficulty breathing).Beforeseeking care, call your healthcare provider and tell them that you have, or are being evaluated for, COVID-19. Put on a face mask before you enter the facility. These steps will help the healthcare providers office to keep other people in the office or waiting room from getting infected or exposed. Ask your healthcare provider to call the local or state health department. Persons who are placed under active monitoring or facilitated self-m onitoring should follow instructions provided by their local health department or occupational health professionals, as appropriate. When working with your local health department check their available hours. If you have a medical emergency and need to call 911, notify the dispatch personnel that you have, or are being evaluated for COVID-19. If possible, put on a face mask before emergency medical services arrive. Discontinuing home isolation Patients with confirmed COVID-19 should remain under home isolation precautions until the risk of secondary transmission to others is thought to be low. The decision to discontinue home isolation precautions should be made on a [id number] basis, in consultation with healthcare providers and state and local health departments. Pending Studies at Discharge: No Stand-Alone Forms: [facility], Smoking Cessation Medications and DC Order Prescriptions: New doxycycline hyclate 100 mg Capsule 100 mg PO BID 3 Days Qty: 6 RF: 0 warfarin 2.5 mg tablet 2.5 mg PO DAILY Qty: 30 RF: 0 guaifenesin [Mucinex] 600 mg tablet extended release 12hr 600 mg PO BID PRN (Reason: cough) Qty: 30 RF: 0 Continued ropinirole 1 mg Tablet 1 mg PO HS RF: 0 omeprazole 40 mg Capsule,Delayed Release(Dr/Ec) 40 mg PO QAM RF: 0 levothyroxine 50 mcg tablet 50 mcg PO QAM RF: 0 docusate sodium 100 mg Capsule 100 mg PO BID PRN (Reason: Constipation) RF: 0 montelukast 10 mg Tablet 10 mg PO QAM RF: 0 lorazepam 1 mg tablet 1 - 2 mg PO DAILY PRN (Reason: Anxiety/Insomnia) RF: 0 carbidopa-levodopa 25-100 mg Tablet 1 tab PO BID RF: 0 escitalopram oxalate 10 mg tablet 10 mg PO QAM RF: 0 cholecalciferol (vitamin D3) 50,000 unit capsule 50,000 unit PO 2XWK RF: 0 diphenhydramine-acetaminophen [Tylenol PM Extra Strength] 25-500 mg Tablet 1 tab PO HS PRN (Reason: Sleep) RF: 0 ondansetron HCl 4 mg tablet 4 mg PO Q8H PRN (Reason: Nausea) RF: 0 gabapentin 300 mg capsule 300 mg PO HS RF: 0 potassium chloride [Klor-Con M10] 10 mEq Tablet,Er Particles/Crystals 10 meq PO Q24H Qty: 30 RF: 0 famotidine [Acid General Store Manager (famotidine)] 10 mg Tablet 10 mg PO BID Qty: 60 RF: 0 Discharge Orders: Discharge Order (Routine); Ordered 11/12/20 Ordered By: Manoj Foley Admission Data Admit Date/Time: 11/08/20 03:16 Attending Provider: Manoj Foley Admit Provider: Brandon Schwarz Primary Care Provider: Tracey Vides Other Providers: Brandon Schwarz ; [facility] Other Interventions: Discharge Summary Assessment (RN) Last Done: 11/12/20 16:00
== END 2020-11-12 17:10 | disposition home or self-care (01) | DRG 175 ==
LOC: ED 21:10 → 2N 11-08 03:16 → 2W 11-10 19:42 → 3W 11-11 20:24

== ENCOUNTER 2022-06-23 10:51 | Observation (INO) ==
[2022-06-23] MEDS ORDERED: ASPIRIN CHEW 324 MG PO STA (11:51)
[2022-06-23 12:15] LABS: INR 1.2 (0.9-1.1); Partial Thromboplastin Ratio 0.7; Partial Thromboplastin Time 20.4 Seconds (21.0-31.0); Prothrombin Time 12.4 Seconds (9.0-12.0)
[2022-06-23 12:24] LABS: D Dimer 1240 ug/L FEU (0-500)
[2022-06-23 12:34] LABS: Anion Gap 8 (3-11); BUN Creatinine Ratio 16.4 (10-20); Blood Urea Nitrogen 11 mg/dl (6-23); Calcium 8.9 mg/dl (8.5-10.1); Carbon Dioxide 23 mmol/L (21-32); Chloride 108 mmol/L (98-107); Creatinine Clr Calc Pharmacy 48.6 ml/min; Est GFR (African American) 94.9 ml/min; Est GFR (Non-African American) 81.9 ml/min; Glucose 89 mg/dl (70-99(Fasting)); Lipase 29 U/L (11-82); Sodium 139 mmol/L (136-145); Troponin I High Sensitivity 6.4 pg/ml (0-14)
--- NOTE | 2022-06-23 12:52 | XRay Report ---
XR chest 1V portable HISTORY: Atypical Chest Pain COMPARISON: Chest 06/16/2021. FINDINGS: No pneumothorax. No pleural effusions. The cardiac silhouette remains mildly enlarged. Mild emphysema again noted. No new focal lung consolidations to suggest pneumonia. No evidence for pulmon ave edema. Mild S-shaped scoliosis of the thoracolumbar spine. IMPRESSION: No significant change compared to the prior study. No acute process. ACT 112: Negative or not required by law. Electronically signed by: Dani Liz M.D. 06/23/2022 12:51 PM
[2022-06-23 12:56] LABS: Basophils # (auto) 0.04 K/uL (0-0.2); Basophils % (auto) 0.7 %; Eosinophils # (auto) 0.05 K/uL (0-0.50); Eosinophils % (auto) 0.9 %; Hematocrit (blood only) 31.6 % (34.1-44.9); Hemoglobin 10.4 g/dl (12.0-16.0); Immature Granulocytes # (auto) 0.01 K/uL (0.00-0.02); Immature Granulocytes % (auto) 0.2 %; Lymphocytes # (auto) 1.24 K/uL (1.2-3.4); Mean Corpuscular Hemoglobin 30.1 pg (25.0-34.0); Mean Corpuscular Hgb Conc 32.9 g/dL (32.0-36.0); Mean Corpuscular Volume 91.6 fL (80.0-100.0); Mean Platelet Volume 9.1 fL (9.4-12.3); Monocytes # (auto) 0.38 K/uL (0.24-0.82); Neutrophils # (auto) 3.68 K/uL (1.4-6.5); Neutrophils % (auto) 68.2 %; Platelet Count 237 K/uL (130-400); RDW Coefficient of Variation 13.9 % (11.5-14.5); Red Blood Count 3.45 M/uL (3.93-5.22)
[2022-06-23] MEDS ORDERED: OPTIRAY 300 500mL IV ONE (13:29)
--- NOTE | 2022-06-23 13:59 | CT Scan Report ---
CT angio chest PE protocol CT DOSE: 235.73 mGy.cm HISTORY: 82 years-old Female with ro PE. Acute chest pain with shortness of breath and cough TECHNIQUE: Multiple CTA images of the chest were obtained after the intravenous administration of 120 ml Optiray. Coronal and sagittal MIPS were obtained from the axial data set and were submitted for review. All measurements were obtained according to NASCET criteria. A dose lowering technique was u tilized adhering to the principles of ALARA. COMPARISON: CTA chest 03/25/2022, CT abdomen and pelvis 04/27/2022 FINDINGS: CTA: The heart is mildly enlarged. No pericardial effusion. Moderate coronary artery calcifications. Ather osclerosis of the thoracic aorta without aneurysm. High-grade stenosis at the origin of the left subc lavian artery redemonstrated secondary to calcified plaque. Descending thoracic aortic tortuosity. Mi ld straightening of the intraventricular septum. Bilateral lobar, segmental and subsegmental pulmonar y emboli, notably within the right upper lobe. No central pulmonary embolus. CT CHEST: No thyroid nodule or lymphadenopathy. Trace left and small right pleural effusions. No pneumothorax. Mild biapical pleural-parenchymal scarring. There are no suspicious pulmonary nodules or masses ident ified. Mild dependent subsegmental bibasilar atelectasis. Wedge-shaped area of consolidation with adj acent groundglass opacity noted within the lateral segment of the right middle lobe, image 109. Centr al airways are generally patent. Intrahepatic biliary ductal dilation redemonstrated status post cholecystectomy. No acute process of the imaged upper abdomen. Unremarkable soft tissues. Degenerative changes of the shoulders and spine. IMPRESSION: 1. Bilateral lobar, segmental and subsegmental pulmonary emboli. Mild straightening of the intraventr icular septum may represent associated right heart strain. 2. Small right pleural effusion with probable developing pulmonary infarct within the right middle lo be. 3. 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 ACT 112: Negative or not required by law. The above report was generated using voice recognition software. It may contain grammatical, syntax o r spelling errors. Electronically signed by: Scott Gurrola M.D. 06/23/2022 1:57 PM
[2022-06-23] MEDS ORDERED: Heparin IV Adult Wt-Based Standard WITH Bolus Protocol IV STA (14:31)
[2022-06-23] MEDS ORDERED: HEPARIN SOD (PORCINE) 1000 UNIT/ML IV ONE (14:46)
[2022-06-23] MEDS ORDERED: Heparin IV Adult Wt-Based Standard WITH Bolus Protocol IV SCH (15:00)
--- NOTE | 2022-06-23 15:14 | History & Physical Report ---
Date of Service June 23, 2022 Assessment & Plan (1) Acute pulmonary embolism: (2) Parkinson disease: (3) Hypothyroidism: (4) Anxiety: (5) Depression: (6) Hyperlipidemia: Plan This is an 82-year-old female with PMH of Parkinson's disease, history of CVA, anxiety, depression, hypothyroidism and other medical problems listed below who presents with right-sided pain starting yesterday and was found to have bilateral pulmonary emboli. Bilateral pulmonary emboli Developed right-sided chest wall pain extending to armpit yesterday Elevated D-dimer of 1240 Chest CTA impression: 1. Bilateral lobar, segmental and subsegmental pulmonary emboli. Mild s traightening of the intraventricular septum may represent associated right heart strain. 2. Small right pleural effusion with probable developing pulmonary infarct within the right middle lobe. 3. 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 No significant ECG changes, initial troponin negative. Supplemental O2 as needed Started on IV Heparin in the ED. Day team to transition to DOAC (previously on Eliquis for 1 yr following provoked PE in 2019) Echo to evaluate for R heart strain Routine pulm consult given bilateral emboli, pulm infarct, possible heart strain Parkinson's Disease Continue carbidopa/levodopa TID Follows with Dr. Ennis in clinic Depression/Anxiety Continue Escitalopram Ativan as needed Restless leg syndrome Continue Requip HS Hypothyroidism Continue levothyroxine DVT Px: IV heparin Code status: CONDITIONAL CODE: yes to CPR/defibrillation, no to intubation PCP: Emanuel Dispo: Admitted to PCU Patient seen in collaboration with Dr. Mohr. Please see addendum. History of Present Illness Chief Complaint: CP Primary Care Provider: Tracey Vides PA-C This is an 82-year-old female with PMH of Parkinson's disease, history of CVA, anxiety, depression, hypothyroidism and other medical problems listed below who presents with right-sided pain starting yesterday. Pain is aching and feels like a sore muscle and is located under her breast with radiation up into right armpit. Pain is made worse with deep inspiration and movement and made better when she lies directly on her right side and applies pressure. Denies any associated palpitations or shortness of breath. No fever, chills or congestion. No chest pain, wheezing, nausea, vomiting, abdominal pain, dysuria, diarrhea or constipation. Denies any history of arrhythmias. Was diagnosed with a PE in the winter 2020 following COVID-19 infection. Was on Eliquis for 1 year before being instructed by provider to continue as she had completed treatment course. Is currently comfortable during exam while lying at rest. 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 Also dealing with of her last year due to COVID-pneumonia. Allergies Allergy/AdvReac Type Severity Reaction Status Date / Time cyclobenzaprine Allergy Severe ANAPHYLAXIS Verified 06/23/22 16:04 Sulfa (Sulfonamide Allergy Severe Shortness Verified 06/23/22 16:04 Antibiotics) of Breath, Rash tolterodine AdvReac Mild DRY MOUTH Verified 06/23/22 16:04 Home Medications Medication Instructions Recorded Confirmed Type carbidopa 25 mg-levodopa 100 mg 1 tab PO TID 03/02/19 06/23/22 History tablet escitalopram oxalate 10 mg tablet 10 mg PO QAM 03/02/19 06/23/22 History levothyroxine 50 mcg tablet 50 mcg PO QAM 03/02/19 06/23/22 History lorazepam 1 mg tablet 1 - 2 mg PO UD PRN Anxiety/Insomnia 03/02/19 06/23/22 History montelukast 10 mg tablet 10 mg PO QAM 03/02/19 06/23/22 History omeprazole 40 mg capsule,delayed 40 mg PO QAM 03/02/19 06/23/22 History release ropinirole 1 mg tablet 1 mg PO HS 03/02/19 06/23/22 History ondansetron HCl 4 mg tablet 4 mg PO Q8H PRN Nausea 10/14/20 06/23/22 History gabapentin 300 mg capsule 300 mg PO HS 10/15/20 06/23/22 History potassium chloride 10 mEq 10 meq PO QAM 05/12/21 06/23/22 History tablet,extended release(part/cryst) (Klor-Con M) diphenhydramine 25 2 tab PO HS PRN Pain 06/23/22 06/23/22 History mg-acetaminophen 500 mg tablet (Tylenol PM Extra Strength) Past Med/Surg History Medical History (Updated 06/23/22 @ 16:30 by Andie Young PA-C) Cerebral vascular disease GERD (gastroesophageal reflux disease) Hyperlipidemia Hypothyroidism Lung nodule Mitral valve prolapse No significant family history Parkinson disease Thoracic radiculopathy Surgical History (Updated 06/23/22 @ 16:23 by Andie Young PA-C) Previous back surgery S/P cholecystectomy S/P cholecystectomy S/P hysterectomy S/P hysterectomy Status post arthroscopy of shoulder Family History Other Heart disease Parkinson disease Social History Smoking Status: Former smoker Second Hand Exposure: No; Hx Alcohol Use: No Hx Substance Use: No Preferred Language: Azeri Communication Ability: Effective Supervisor Enrobing Required: No Beliefs That Will Affect Care: None marital status: / Current Living Situation: Family Current Living Situation Comment: son living with her Feels Safe at Home: Yes Assistive Devices: Walker Review of Systems Review of Systems: At least ten systems reviewed and negative except as noted in the HPI. Physical Exam Physical Exam: General Appearance: WD/WN, vitals as above, NAD, sitting up in bed, pleasant, conversing easily Head: normocephalic, atraumatic Eyes: normal inspection, PERRL, conjunctivae normal, anicteric sclerae ENT: external ear and nose normal, oropharynx normal Neck: normal visual inspection, trachea midline, no thyromegaly Respiratory: normal respiratory effort, lungs clear to auscultation, no wheeze, rales, rhonchi. No accessory muscle use Cardiovascular: regular rate, rhythm, no murmur, normal peripheral pulses, no BLE edema. Vessels: no JVD Chest: TTP on R chest wall/axilla region Abdomen/GI: normal bowel sounds, soft, nontender, no hepatosplenomegaly Extremities/Musculoskeletal: no cyanosis or clubbing, extremities motor strength 5/5 Neurologic: PERRL, EOMI, accommodation nl, no face palsy, no dysarthria, CN's II-XI intact bilaterally and moves all extremities, mild BUE tremors noted Psychiatric: A+Ox3, euthymic affect Skin: no rashes, normal color, warm/dry Results & Data Results & Data ([facility]) Vital Signs (Past 12 Hours) Vital Signs Temp Pulse Resp BP Pulse Ox O2 Del Method 06/23/22 13:36 88 24 112/94 96 06/23/22 13:00 86 16 117/68 94 06/23/22 12:54 91 H 20 106/73 06/23/22 11:58 93 H 16 96 Room Air 06/23/22 11:11 36.4 C L 93 H 16 144/80 H 96 Room Air Laboratory Results Short CBC 06/23/22 06/23/22 Range/Units 11:45 12:42 WBC Cancelled 5.40 Hgb Cancelled 10.4 L Hct Cancelled 31.6 L Plt Count Cancelled 237 BMP 06/23/22 06/23/22 11:45 12:42 Sodium 139 Potassium TNP 3.9 Chloride 108 H Carbon Dioxide 23 BUN 11 Creatinine 0.67 Glucose 89 Calcium 8.9 Diagnostic Findings Chest X-Ray 06/23/22 11:51 XR chest 1V portable HISTORY: Atypical Chest Pain COMPARISON: Chest 06/16/2021. FINDINGS: No pneumothorax. No pleural effusions. The cardiac silhouette remains mildly enlarged. Mild emphysema again noted. No new focal lung consolidations to suggest pneumonia. No evidence for pulmonary edema. Mild S-shaped scoliosis of the thoracolumbar spine. IMPRESSION: No significant change compared to the prior study. No acute process. ACT 112: Negative or not required by law. Electronically signed by: Dani Liz M.D. 06/23/2022 12:51 PM Chest CTA 06/23/22 12:25 CT angio chest PE protocol CT DOSE: 235.73 mGy.cm HISTORY: 82 years-old Female with ro PE. Acute chest pain with shortness of breath and cough TECHNIQUE: Multiple CTA images of the chest were obtained after the intravenous administration of 120 ml Optiray. Coronal and sagittal MIPS were obtained from the axial data set and were submitted for review. All measurements were obtained according to NASCET criteria. A dose lowering technique was utilized adhering to the principles of ALARA. COMPARISON: CTA chest 03/25/2022, CT abdomen and pelvis 04/27/2022 FINDINGS: CTA: The heart is mildly enlarged. No pericardial effusion. Moderate coronary artery calcifications. Atherosclerosis of the thoracic aorta without aneurysm. High- grade stenosis at the origin of the left subclavian artery redemonstrated secondary to calcified plaque. Descending thoracic aortic tortuosity. Mild straightening of the intraventricular septum. Bilateral lobar, segmental and subsegmental pulmonary emboli, notably within the right upper lobe. No central pulmonary embolus. CT CHEST: No thyroid nodule or lymphadenopathy. Trace left and small right pleural effusions. No pneumothorax. Mild biapical pleural-parenchymal scarring. There are no suspicious pulmonary nodules or masses identified. Mild dependent subsegmental bibasilar atelectasis. Wedge-shaped area of consolidation with adjacent groundglass opacity noted within the lateral segment of the right middle lobe, image 109. Central airways are generally patent. Intrahepatic biliary ductal dilation redemonstrated status post cholecystectomy. No acute process of the imaged upper abdomen. Unremarkable soft tissues. Degenerative changes of the shoulders and spine. IMPRESSION: 1. Bilateral lobar, segmental and subsegmental pulmonary emboli. Mild stra ightening of the intraventricular septum may represent associated right heart strain. 2. Small right pleural effusion with probable developing pulmonary infarct within the right middle lobe. 3. 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 ACT 112: Negative or not required by law. The above report was generated using voice recognition software. It may contain grammatical, syntax or spelling errors. Electronically signed by: Scott Gurrola M.D. 06/23/2022 1:57 PM ECG Additional Comments: Normal sinus rhythm, Nonspecific T wave abnormality Code Status & VTE Plan VTE Prophylaxis Plan VTE Prophylaxis will be ordered: Yes Supervising Physician Co-Signing Physician Notes 82-year-old female with PMH of PE 2/2 covid s/p 1 year on eliquis (DC'd on Oct 2021 per Pt), Parkinson's disease, CVA, anxiety, depression, hypothyroidism presented 06/23 to our ED with right-sided pain starting 1 day [employer], aggravated w/ deep breathing/no recent fever or increased cough or other illnesses and was found to have bilateral pulmonary emboli during imagings in the ED. Patient reports being less mobile after quitting job a year ago, more so lately. Labs reviewed, fairly at baseline, D-dimer elevated, imagings reviewed. CTA chest with bilateral PE and concern for right heart strain. Admitting troponin WNL. Admitting EKG with normal sinus rhythm. ECHO, Pulm consult. Patient is started on heparin drip, will continue with the same. DOAC on DC. Upon Exam GENERAL: Alert and oriented x3. NAD, on RA. HEENT: No pallor, no icterus. Pupils equal, round and reactive to light. Oral mucosa moist. NECK: No JVD, no neck masses. HEART: S1 and S2 heard. Regular rate and rhythm. No murmur, no gallop. RESPIRATORY SYSTEM: Normal AP diameter. No accessory muscle use. No wheezing, no crackles. ABDOMEN: Soft, bowel sounds present, nontender, no distention. CENTRAL NERVOUS SYSTEM: No facial droop. Speech is clear. Obeys simple commands. Moves extremities. EXTREMITIES: No edema, no erythema seen. I have seen and examined the patient and have discussed the case with the provider above. I agree with the assessment and plan as stated.
[2022-06-23] MEDS: HEPARIN SODIUM/DEXTROSE 25,000 UNITS/500 ML BAG IV SCH (15:22)
--- NOTE | 2022-06-23 18:34 | Emergency Department Note ---
History of Present Illness General Chief Complaint: Cardiac Assessment Stated Complaint: PAIN IN R SIDE, PAIN IN R ARM Time Seen by Provider: 06/23/22 11:51 History of Present Illness Provider Complaint: chest pain Onset (ago): day(s) 1 Duration: intermittent Onset: during rest Pain Location: right chest Pain Radiation: none Severity: moderate Maximum Pain Intensity: 6 Current Pain Intensity: 6 Quality: + sharp Relieved By: + nothing Exacerbated By: + inspiration Context: + history of DVT/PE; no recent illness, no recent surgery, no recent travel or no trauma/injury Associated symptoms: no nausea, no vomiting, no diaphoresis, no dyspnea, no palpitations, no fever or no leg swelling Home Medications Medication Instructions Recorded Confirmed Type carbidopa 25 mg-levodopa 100 mg 1 tab PO TID 03/02/19 06/23/22 History tablet escitalopram oxalate 10 mg tablet 10 mg PO QAM 03/02/19 06/23/22 History levothyroxine 50 mcg tablet 50 mcg PO QAM 03/02/19 06/23/22 History lorazepam 1 mg tablet 1 - 2 mg PO UD PRN Anxiety/Insomnia 03/02/19 06/23/22 History montelukast 10 mg tablet 10 mg PO QAM 03/02/19 06/23/22 History omeprazole 40 mg capsule,delayed 40 mg PO QAM 03/02/19 06/23/22 History release ropinirole 1 mg tablet 1 mg PO HS 03/02/19 06/23/22 History ondansetron HCl 4 mg tablet 4 mg PO Q8H PRN Nausea 10/14/20 06/23/22 History gabapentin 300 mg capsule 300 mg PO HS 10/15/20 06/23/22 History potassium chloride 10 mEq 10 meq PO QAM 05/12/21 06/23/22 History tablet,extended release(part/cryst) (Klor-Con M) diphenhydramine 25 2 tab PO HS PRN Pain 06/23/22 06/23/22 History mg-acetaminophen 500 mg tablet (Tylenol PM Extra Strength) Allergies Allergy/AdvReac Type Severity Reaction Status Date / Time cyclobenzaprine Allergy Severe ANAPHYLAXIS Verified 06/23/22 16:04 Sulfa (Sulfonamide Allergy Severe Shortness Verified 06/23/22 16:04 Antibiotics) of Breath, Rash tolterodine AdvReac Mild DRY MOUTH Verified 06/23/22 16:04 Past Med/Surg History Medical History Cerebral vascular disease GERD (gastroesophageal reflux disease) Hyperlipidemia Hypothyroidism Lung nodule Mitral valve prolapse No significant family history Parkinson disease Thoracic radiculopathy Surgical History Previous back surgery S/P cholecystectomy S/P cholecystectomy S/P hysterectomy S/P hysterectomy Status post arthroscopy of shoulder Family History Other Heart disease Parkinson disease Social History Smoking Status: Former smoker Second Hand Exposure: No; Hx Alcohol Use: No Hx Substance Use: No Preferred Language: Telugu Communication Ability: Effective [employer] Required: No Beliefs That Will Affect Care: None marital status: / Current Living Situation: Family Current Living Situation Comment: son living with her Feels Safe at Home: Yes Assistive Devices: Walker Review of Systems A total of 10 systems reviewed and were otherwise negative Physical Exam Vital Signs Vital Signs - 24 hr 06/23/22 11:11 06/23/22 11:58 06/23/22 12:54 Temperature 36.4 C L Temperature Source Temporal Artery Scan Pulse Rate 93 H 93 H 91 H Pulse Rate [Right Finger] Pulse Rate from SpO2 Sensor Pulse Rhythm Regular Regular Pulse Strength Normal Respiratory Rate 16 16 20 Respiratory Effort / Characteristics Non-Labored Spontaneous Respiratory Depth Normal Blood Pressure 144/80 H 106/73 Blood Pressure Mean 101 84 Pulse Oximetry 96 96 Oxygen Delivery Method Room Air Room Air Sepsis Recent Fever Within 48 Hours No Sepsis New/Unexplained Change in Mental Status N/A Sepsis Action Taken by Nursing No Action Required 06/23/22 13:00 06/23/22 13:36 06/23/22 14:00 Temperature Temperature Source Pulse Rate 86 88 Pulse Rate [Right Finger] Pulse Rate from SpO2 Sensor 85 87 Pulse Rhythm Pulse Strength Respiratory Rate 16 24 Respiratory Effort / Characteristics Respiratory Depth Blood Pressure 117/68 112/94 123/72 Blood Pressure Mean 84 100 89 Pulse Oximetry 94 96 Oxygen Delivery Method Sepsis Recent Fever Within 48 Hours Sepsis New/Unexplained Change in Mental Status Sepsis Action Taken by Nursing 06/23/22 14:00 06/23/22 14:30 06/23/22 14:30 Temperature Temperature Source Pulse Rate 83 94 H Pulse Rate [Right Finger] Pulse Rate from SpO2 Sensor 83 95 H Pulse Rhythm Pulse Strength Respiratory Rate 12 17 Respiratory Effort / Characteristics Respiratory Depth Blood Pressure 125/80 Blood Pressure Mean 95 Pulse Oximetry 97 94 Oxygen Delivery Method Sepsis Recent Fever Within 48 Hours Sepsis New/Unexplained Change in Mental Status Sepsis Action Taken by Nursing 06/23/22 15:00 06/23/22 15:00 06/23/22 15:30 Temperature Temperature Source Pulse Rate 98 H 98 H Pulse Rate [Right Finger] Pulse Rate from SpO2 Sensor 202 H 99 H Pulse Rhythm Pulse Strength Respiratory Rate 28 H 25 H Respiratory Effort / Characteristics Respiratory Depth Blood Pressure 168/93 H Blood Pressure Mean 118 Pulse Oximetry 82 L 96 Oxygen Delivery Method Sepsis Recent Fever Within 48 Hours Sepsis New/Unexplained Change in Mental Status Sepsis Action Taken by Nursing 06/23/22 15:51 06/23/22 16:00 06/23/22 16:30 Temperature Temperature Source Pulse Rate 92 H 93 H Pulse Rate [Right Finger] 90 Pulse Rate from SpO2 Sensor 93 H 93 H Pulse Rhythm Pulse Strength Respiratory Rate 22 20 26 H Respiratory Effort / Characteristics Respiratory Depth Blood Pressure Blood Pressure Mean Pulse Oximetry 96 96 95 Oxygen Delivery Method Room Air Sepsis Recent Fever Within 48 Hours Sepsis New/Unexplained Change in Mental Status Sepsis Action Taken by Nursing 06/23/22 17:00 06/23/22 17:01 06/23/22 17:01 Temperature Temperature Source Pulse Rate 91 H 91 H Pulse Rate [Right Finger] Pulse Rate from SpO2 Sensor 91 H 91 H Pulse Rhythm Pulse Strength Respiratory Rate 15 19 Respiratory Effort / Characteristics Respiratory Depth Blood Pressure 152/93 H Blood Pressure Mean 112 Pulse Oximetry 95 96 Oxygen Delivery Method Sepsis Recent Fever Within 48 Hours Sepsis New/Unexplained Change in Mental Status Sepsis Action Taken by Nursing 06/23/22 17:30 06/23/22 17:30 Temperature Temperature Source Pulse Rate 96 H Pulse Rate [Right Finger] Pulse Rate from SpO2 Sensor Pulse Rhythm Pulse Strength Respiratory Rate 18 Respiratory Effort / Characteristics Respiratory Depth Blood Pressure 154/87 H Blood Pressure Mean 109 Pulse Oximetry Oxygen Delivery Method Sepsis Recent Fever Within 48 Hours Sepsis New/Unexplained Change in Mental Status Sepsis Action Taken by Nursing Physical Exam GENERAL: She is oriented to person, place, and time. She appears well-developed and well-nourished. She does not appear distressed. HENT: Exam performed. -Head: Normocephalic and atraumatic. -Right Ear: External ear normal. No mastoid tenderness. -Left Ear: External ear normal. No mastoid tenderness. -Mouth/Throat: The oropharynx is clear and moist. No trismus in the jaw. No dental abscesses or uvula swelling. No oropharyngeal exudate or tonsillar abscesses. EYES: Conjunctivae and EOM are normal. Pupils are equal, round, and reactive to light. Right eye exhibits no discharge. Left eye exhibits no discharge. No scleral icterus. NECK: Normal range of motion. Neck supple. No JVD present. No spinous process tenderness present. No carotid bruit present. No rigidity. No tracheal deviation and normal range of motion present. No Brudzinski's sign and no Kernig's sign noted. CV: Normal rate, regular rhythm, normal heart sounds and intact distal pulses. T here is no peripheral edema. Palpable radial pulses bue. PULM/CHEST: Effort normal and breath sounds normal. No respiratory distress. No stridor. She has no wheezes. She has no rales. -Chest Wall: Pain on palpation of the right chest. ABD: The abdomen is soft. Bowel sounds are normal. She has no distension. No mass is present. There is no tenderness. There is no rebound, no guarding, no Jimenez's sign and no tenderness at McBurney's point. Rovsig negative MUSC/SKEL: Normal range of motion. There is no peripheral edema, tenderness or deformity. LYMPH: No cervical adenopathy. NEURO: She is alert and oriented to person, place, and time. She has normal strength. No cranial nerve deficit or sensory deficit. Coordination and gait normal. GCS eye subscore is 4. GCS verbal subscore is 5. GCS motor subscore is 6. Cerebellar tests wnl. SKIN: Skin is warm and dry. She is not diaphoretic. PSYCH: She has a normal mood and affect. Behavior is normal. Judgment and thought content normal. Course Course 1151: The patient was evaluated in room C7. A complete history and physical exam was performed Cardiac monitoring: An order was placed for continuous cardiac monitoring. The monitor shows a rate of 90 with sinus rhythm 1435: Vital signs stable. Labs showed an elevated D-dimer. CTA of the chest showed multiple PEs and it did show evidence of right heart strain. Patient be started on heparin and [facility] team Dr. Mohr Administered Medications Heparin Sodium/Dextrose (Heparin Sodium/Dextrose) 25,000 units in 500 mls @ 17 mls/hr IV .Q24H [facility]; Protocol Stop: 07/23/22 14:59 Last Admin: 06/23/22 15:22 Dose: 850 units/hr, 17 mls/hr Documented By: SAGAR Co-signed By: SLIM Discontinued Medications Aspirin (Aspirin Chew 324 Mg) 324 mg PO NOW STA Stop: 06/23/22 11:52 Last Admin: 06/23/22 12:04 Dose: 324 mg Documented By: MARTÍNEZ Heparin Sodium (Porcine) (Heparin Sod (Porcine) 1000 Unit/Ml) 1 units IV NOW ONE Stop: 06/23/22 14:47 Last Admin: 06/23/22 15:21 Dose: 4,000 units Documented By: SAGAR Co-signed By: SLIM Heparin Sodium/Dextrose (Heparin Iv Adult Wt-Based Standard With Bolus Protocol) 1 each IV NOW STA; Protocol Stop: 06/23/22 14:32 Last Admin: 06/23/22 15:35 Dose: Not Given Documented By: SAGAR Ioversol (Optiray 300 500ml) 120 ml IV ONCE ONE Stop: 06/23/22 13:30 Last Admin: 06/23/22 13:30 Dose: 120 ml Documented By: DESTINY Medical Decision Making Laboratory Data Result diagrams: 06/23/22 12:42 06/23/22 12:42 Labs: Lab Results 06/23/22 06/23/22 06/23/22 Range/Units 11:45 11:45 11:45 WBC Cancelled RBC Cancelled Hgb Cancelled Hct Cancelled MCV Cancelled MCH Cancelled MCHC Cancelled RDW Std Deviation Cancelled RDW Coeff of Arturo Cancelled Plt Count Cancelled MPV Cancelled Immature Gran % (Auto) Cancelled Neut % (Auto) Cancelled Lymph % (Auto) Cancelled [place] % (Auto) Cancelled Eos % (Auto) Cancelled Baso % (Auto) Cancelled Neut # (Auto) Cancelled Lymph # (Auto) Cancelled [place] # (Auto) Cancelled Eos # (Auto) Cancelled Baso # (Auto) Cancelled Immature Gran # (Auto) Cancelled Absolute Nucleated RBC Cancelled Nucleated RBC % (auto) Cancelled Neutrophils % (Manual) Cancelled Band Neutrophils % Cancelled Lymphocytes % (Manual) Cancelled Prolymphocyte % Cancelled Reactive Lymphs % (Man) Cancelled Monocytes % (Manual) Cancelled Eosinophils % (Manual) Cancelled Basophils % (Manual) Cancelled Metamyelocytes % (Man) Cancelled Myelocytes % (Man) Cancelled Promyelocytes % (Man) Cancelled Blast Cells % (Manual) Cancelled Plasma Cell % (Manual) Cancelled Other Cells % Cancelled Nucleated RBC % Cancelled Neutrophils # (Manual) Cancelled Band Neutrophils # Cancelled Total Absolute Neuts Cancelled Lymphocytes # (Manual) Cancelled Prolymphocyte # Cancelled Reactive Lymphs # Cancelled Total Abs Lymphocytes Cancelled Monocytes # (Manual) Cancelled Eosinophils # (Manual) Cancelled Basophils # (Manual) Cancelled Metamyelocytes # (Man) Cancelled Myelocytes # (Manual) Cancelled Promyelocytes # (Man) Cancelled Blast Cells # (Man) Cancelled Plasma Cell # (Manual) Cancelled Other Cells # Cancelled Nucleated RBCs # (Man) Cancelled Hypersegmented Neuts Cancelled Hyposegmented Neuts Cancelled Hypogranular Neuts Cancelled Large Granular Lymphs Cancelled # Lrg Granular Lymphs Cancelled Hairy Cells Cancelled Smudge Cells Cancelled Toxic Granulation Cancelled Toxic Vacuolation Cancelled Dohle Bodies Cancelled Briseyda Rods Cancelled Platelet Estimate Cancelled Hypogranular Platelets Cancelled Clumped Platelets Cancelled Giant Platelets Cancelled Platelet Satelliting Cancelled RBC Morphology Cancelled Polychromasia Cancelled Hypochromasia Cancelled Poikilocytosis Cancelled Basophilic Stippling Cancelled Anisocytosis Cancelled Microcytosis Cancelled Macrocytosis Cancelled Spherocytes Cancelled Pappenheimer Bodies Cancelled Sickle Cells Cancelled Target Cells Cancelled Tear Drop Cells Cancelled Ovalocytes Cancelled Stomatocytes Cancelled Mata-[place] Bodies Cancelled Echinocytes Cancelled Acanthocytes (Spur) Cancelled Rouleaux Cancelled RBC Agglutinates Cancelled Schistocytes Cancelled Sezary Cell Cancelled PT 12.4 H (9.0-12.0) Seconds INR 1.2 H (0.9-1.1) APTT 20.4 L (21.0-31.0) Seconds PTT Ratio 0.7 D-Dimer 1240 H* (0-500) ug/L FEU Sodium 139 (136-145) mmol/L Potassium TNP Chloride 108 H (98-107) mmol/L Carbon Dioxide 23 (21-32) mmol/L Anion Gap 8 (3-11) BUN 11 (6-23) mg/dl Creatinine 0.67 (0.6-1.2) mg/dl Est Cr Clr Drug Dosing 48.6 ml/min Est GFR ( Amer) 94.9 ml/min Est GFR (Non-Af Amer) 81.9 ml/min BUN/Creatinine Ratio 16.4 (10-20) Glucose 89 (70-99(Fasting)) mg/dl Calcium 8.9 (8.5-10.1) mg/dl Troponin I High Sens 6.4 (0-14) pg/ml Lipase 29 (11-82) U/L SARS-CoV-2, RNA, NAAT (NEGATIVE) Blood Parasites ID Cancelled 06/23/22 06/23/22 06/23/22 Range/Units 12:42 12:42 15:32 WBC 5.40 RBC 3.45 L Hgb 10.4 L Hct 31.6 L MCV 91.6 MCH 30.1 MCHC 32.9 RDW Std Deviation 47.0 H RDW Coeff of Arturo 13.9 Plt Count 237 MPV 9.1 L Immature Gran % (Auto) 0.2 Neut % (Auto) 68.2 Lymph % (Auto) 23.0 [place] % (Auto) 7.0 Eos % (Auto) 0.9 Baso % (Auto) 0.7 Neut # (Auto) 3.68 Lymph # (Auto) 1.24 [place] # (Auto) 0.38 Eos # (Auto) 0.05 Baso # (Auto) 0.04 Immature Gran # (Auto) 0.01 Absolute Nucleated RBC Nucleated RBC % (auto) Neutrophils % (Manual) Band Neutrophils % Lymphocytes % (Manual) Prolymphocyte % Reactive Lymphs % (Man) Monocytes % (Manual) Eosinophils % (Manual) Basophils % (Manual) Metamyelocytes % (Man) Myelocytes % (Man) Promyelocytes % (Man) Blast Cells % (Manual) Plasma Cell % (Manual) Other Cells % Nucleated RBC % Neutrophils # (Manual) Band Neutrophils # Total Absolute Neuts Lymphocytes # (Manual) Prolymphocyte # Reactive Lymphs # Total Abs Lymphocytes Monocytes # (Manual) Eosinophils # (Manual) Basophils # (Manual) Metamyelocytes # (Man) Myelocytes # (Manual) Promyelocytes # (Man) Blast Cells # (Man) Plasma Cell # (Manual) Other Cells # Nucleated RBCs # (Man) Hypersegmented Neuts Hyposegmented Neuts Hypogranular Neuts Large Granular Lymphs # Lrg Granular Lymphs Hairy Cells Smudge Cells Toxic Granulation Toxic Vacuolation Dohle Bodies Briseyda Rods Platelet Estimate Hypogranular Platelets Clumped Platelets Giant Platelets Platelet Satelliting RBC Morphology Polychromasia Hypochromasia Poikilocytosis Basophilic Stippling Anisocytosis Microcytosis Macrocytosis Spherocytes Pappenheimer Bodies Sickle Cells Target Cells Tear Drop Cells Ovalocytes Stomatocytes Mata-[place] Bodies Echinocytes Acanthocytes (Spur) Rouleaux RBC Agglutinates Schistocytes Sezary Cell PT (9.0-12.0) Seconds INR (0.9-1.1) APTT (21.0-31.0) Seconds PTT Ratio D-Dimer (0-500) ug/L FEU Sodium (136-145) mmol/L Potassium 3.9 Chloride (98-107) mmol/L Carbon Dioxide (21-32) mmol/L Anion Gap (3-11) BUN (6-23) mg/dl Creatinine (0.6-1.2) mg/dl Est Cr Clr Drug Dosing ml/min Est GFR ( Amer) ml/min Est GFR (Non-Af Amer) ml/min BUN/Creatinine Ratio (10-20) Glucose (70-99(Fasting)) mg/dl Calcium (8.5-10.1) mg/dl Troponin I High Sens (0-14) pg/ml Lipase (11-82) U/L SARS-CoV-2, RNA, NAAT NEGATIVE (NEGATIVE) Blood Parasites ID Imaging Data Chest x-ray: Radiologist's impression: XR chest 1V portable HISTORY: Atypical Chest Pain COMPARISON: Chest 06/16/2021. FINDINGS: No pneumothorax. No pleural effusions. The cardiac silhouette remains mildly enlarged. Mild emphysema again noted. No new focal lung consolidations to suggest pneumonia. No evidence for pulmonary edema. Mild S-shaped scoliosis of the thoracolumbar spine. IMPRESSION: No significant change compared to the prior study. No acute process. ACT 112: Negative or not required by law. Electronically signed by: Dani Liz M.D. 06/23/2022 12:51 PM Dictated:06/23/22 1248 Transcribed: 06/23/[address] scan - chest: Radiologist's impression: CT angio chest PE protocol CT DOSE: 235.73 mGy.cm HISTORY: 82 years-old Female with ro PE. Acute chest pain with shortness of breath and cough TECHNIQUE: Multiple CTA images of the chest were obtained after the intravenous administration of 120 ml Optiray. Coronal and sagittal MIPS were obtained from the axial data set and were submitted for review. All measurements were obtained according to NASCET criteria. A dose lowering technique was utilized adhering to the principles of ALARA. COMPARISON: CTA chest 03/25/2022, CT abdomen and pelvis 04/27/2022 FINDINGS: CTA: The heart is mildly enlarged. No pericardial effusion. Moderate coronary artery calcifications. Atherosclerosis of the thoracic aorta without aneurysm. High- grade stenosis at the origin of the left subclavian artery redemonstrated secon leonel to calcified plaque. Descending thoracic aortic tortuosity. Mild straightening of the intraventricular septum. Bilateral lobar, segmental and subsegmental pulmonary emboli, notably within the right upper lobe. No central pulmonary embolus. CT CHEST: No thyroid nodule or lymphadenopathy. Trace left and small right pleural effusions. No pneumothorax. Mild biapical pleural-parenchymal scarring. There are no suspicious pulmonary nodules or masses identified. Mild dependent subsegmental bibasilar atelectasis. Wedge-shaped area of consolidation with adjacent groundglass opacity noted within the lateral segment of the right middle lobe, image 109. Central airways are generally patent. Intrahepatic biliary ductal dilation redemonstrated status post cholecystectomy. No acute process of the imaged upper abdomen. Unremarkable soft tissues. Degenerative changes of the shoulders and spine. IMPRESSION: 1. Bilateral lobar, segmental and subsegmental pulmonary emboli. Mild straightening of the intraventricular septum may represent associated right heart strain. 2. Small right pleural effusion with probable developing pulmonary infarct within the right middle lobe. 3. 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 ACT 112: Negative or not required by law. The above report was generated using voice recognition software. It may contain grammatical, syntax or spelling errors. Electronically signed by: Scott Gurrola M.D. 06/23/2022 1:57 PM Dictated:06/23/22 1345 Transcribed: 06/23/22 1345 ECG Data Indication: SOB/dyspnea Rate (beats per minute): 91 Rhythm: normal sinus Findings: no ST depression, no ST elevation or no prolonged QT MDM Narrative Vital signs stable. Labs showed an elevated D-dimer. CTA of the chest showed multiple PEs and it did show evidence of right heart strain. Patient be started on heparin and [facility] team Dr. Mohr Impression & Plan Pulmonary emboli Critical Care Time Critical Care Time: Yes Total Critical Care Time: 63 I have personally spent greater than 63 minutes of critical care time in the direct management of this patient. This includes bedside care, interpretation of diagnostic studies, and testing, discussion with consultants, patient, and family members, and other required patient management activities. This 63 minutes is in excess of all separately billable procedures. Discharge Plan Visit Data Chief Complaint: Cardiac Assessment Stated Complaint: PAIN IN R SIDE, PAIN IN R ARM ED Provider: Ponce Ho Discharge Problem: Pulmonary emboli Patient Disposition: Admitted As Inpatient Forms Stand Alone Forms: My [facility] Prescriptions Prescriptions: No Action ropinirole 1 mg Tablet 1 mg PO HS omeprazole 40 mg Capsule,Delayed Release(Dr/Ec) 40 mg PO QAM levothyroxine 50 mcg tablet 50 mcg PO QAM Rx Instructions: Take this medication at least 30 minutes before breakfast or any other medications montelukast 10 mg Tablet 10 mg PO QAM lorazepam 1 mg tablet 1 - 2 mg PO UD PRN (Reason: Anxiety/Insomnia) carbidopa-levodopa 25-100 mg Tablet 1 tab PO TID escitalopram oxalate 10 mg tablet 10 mg PO QAM ondansetron HCl 4 mg tablet 4 mg PO Q8H PRN (Reason: Nausea) gabapentin 300 mg capsule 300 mg PO HS diphenhydramine-acetaminophen [Tylenol PM Extra Strength] 25-500 mg Tablet 2 tab PO HS PRN (Reason: Pain) potassium chloride [Klor-Con M10] 10 mEq tablet,ER particles/crystals 10 meq PO QAM Referrals Referrals: Tracey Vides PA-C [Primary Care Provider] -
[2022-06-23] MEDS ORDERED: POLYETHYLENE (MIRALAX) 17 GM PACK PO PRN (19:32)
[2022-06-23] MEDS: LIDOCAINE 5% 1 PATCH TD SCH (21:00)
[2022-06-23] MEDS: GABAPENTIN 300 MG CAP PO SCH (21:16)
[2022-06-23] MEDS: CARBIDOPA/LEVODOPA 25/100MG TAB PO SCH (21:16)
[2022-06-23] MEDS: rOPINIRole HCL 1 MG TABLET PO SCH (21:16)
[2022-06-23] MEDS: LORazepam 1 MG TAB PO PRN (21:18)
[2022-06-23 21:54] LABS: Partial Thromboplastin Ratio 3.6
[2022-06-23 22:10] LABS: Partial Thromboplastin Time 98.8 Seconds (21.0-31.0)
[2022-06-23] MEDS: ACETAMINOPHEN 325 MG TAB PO PRN (22:21)
[2022-06-23] MEDS: ONDANSETRON INJ 2 MG/ML 2 ML VIAL IV PRN (22:21)
[2022-06-24 06:23] LABS: Hematocrit (blood only) 33.7 % (34.1-44.9); Hemoglobin 10.8 g/dl (12.0-16.0); Mean Corpuscular Volume 93.6 fL (80.0-100.0); Platelet Count 248 K/uL (130-400); RDW Coefficient of Variation 13.9 % (11.5-14.5); RDW Standard Deviation 47.7 fL (36.4-46.3); White Blood Count 3.91 K/ul (4.8-10.8)
[2022-06-24 06:51] LABS: BUN Creatinine Ratio 17.4 (10-20); Calcium 8.8 mg/dl (8.5-10.1); Est GFR (Non-African American) 81.1 ml/min; Potassium 4.1 mmol/L (3.5-5.1)
[2022-06-24 07:39] LABS: Partial Thromboplastin Ratio 2.5
[2022-06-24 07:44] LABS: Partial Thromboplastin Time 69.2 Seconds (21.0-31.0)
[2022-06-24] MEDS: MONTELUKAST SODIUM 10 MG TABLET PO SCH (08:34)
[2022-06-24] MEDS: POTASSIUM CHLORIDE 10 MEQ TABCR PO SCH (08:34)
[2022-06-24] MEDS: PANTOprazole 40 MG TAB PO SCH (08:34)
[2022-06-24] MEDS: CARBIDOPA/LEVODOPA 25/100MG TAB PO SCH ×3 (08:35→21:06)
[2022-06-24] MEDS: ESCITALOPRAM OXALATE 10 MG TAB PO SCH (08:36)
[2022-06-24] MEDS: LEVOTHYROXINE SODIUM 50 MCG TABLET PO SCH (08:37)
--- NOTE | 2022-06-24 10:13 | Electrocardiogram Report ---
Test Reason : Blood Pressure : / mmHG Vent. Rate : 091 BPM Atrial Rate : 091 BPM P-R Int : 140 ms QRS Dur : 080 ms QT Int : 360 ms P-R-T Axes : 066 041 017 degrees QTc Int : 442 ms Poor data quality, interpretation may be adversely affected Normal sinus rhythm Nonspecific T wave abnormality Abnormal ECG When compared with ECG of 27-APR-2022 18:49, No significant change Confirmed by Luis Martin ([id number]) on 06/24/2022 10:12:20 AM Referred By: Confirmed By:Luis Martin
--- NOTE | 2022-06-24 12:13 | Hospitalist Progress Note ---
Date of Service June 24, 2022 Assessment & Plan (1) Acute pulmonary embolism: (2) Parkinson disease: (3) Hypothyroidism: (4) Anxiety: (5) Depression: (6) Hyperlipidemia: Plan Patient is an 82 yr female with H/O Parkinson's disease, history of CVA, anxiety, depression, hypothyroidism and other medical problems listed below who presents with right-sided pain starting yesterday and was found to have bilateral pulmonary emboli. Acute bilateral pulmonary emboli Right middle lobe developing pulmonary infarct H/O PE in the past, was thought to be due to COVID 19 infection (Was on Eliquis at that time) --Elevated D-dimer of 1240 --Chest CTA: Bilateral lobar, segmental and subsegmental pulmonary emboli. Mild straightening of the intraventricular septum may represent associated right heart strain. Small right pleural effusion with probable developing pulmonary infarct within the right middle lobe. 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 --ECHO: Left ventricle is normal in size. Left ventricle systolic function is normal. EF 55 to 60%. Right ventricle is normal in size. Right ventricle systolic function is normal. Mild mitral regurgitation. Left and right atrium is normal. No evidence of pulmonary hypertension. --Saturating well on room air. Continue IV heparin Hypercoagulable work-up as outpatient Pulmonology consulted Plan to transition to Eliquis as able Left subclavian artery Stenosis CT as above Will check lipid panel H/O intolerance to Aggrenox, full dose aspirin as per patient Continue anticoagulation as above Consider starting on Lipitor Needs follow up with Vascular surgery as outpatient Parkinson's Disease Continue carbidopa/levodopa TID Follows with Dr. Ennis Depression/Anxiety Continue Escitalopram Ativan as needed Restless leg syndrome Continue Requip HS Hypothyroidism Continue levothyroxine DVT Px: IV heparin Code status: CONDITIONAL CODE: yes to CPR/defibrillation, no to intubation Admission and Anticipated Discharge Date Admission Date: June 23, 2022 Subjective Patient is seen and examined at bedside States having right-sided pleuritic pain with deep breathing Also reports dyspnea on exertion Denies any bleeding issues while on IV heparin Also denies any dizziness, nausea, abdominal pain Offers no other complaints Saturating well on room air Review of Systems Review of Systems: All systems reviewed & are unremarkable except as noted in Subjective Physical Exam Physical Exam: Physical Exam: Vitals signs as noted above General Appearance:Thin, elderly, No apparent distress Head: normocephalic, Atraumatic Eyes: normal inspection, EOMI Neck: supple, Trachea midline Respiratory/Chest: Normal breath sounds, CTA, No accessory muscle use Cardiovascular: S1, S2, No murmur Abdomen/GI:Soft, Non tender, Bowel sounds present Extremities/Musculoskeletal:normal inspection, no edema Neurologic/Psych:AAOX3, grossly no focal neurological deficits Skin: normal color, warm Results & Data Results & Data ([facility]) Vital Signs (Past 12 Hours) Vital Signs Temp Pulse Pulse Resp BP Pulse Ox O2 Del Method 06/24/22 11:14 36.7 C 78 19 111/68 93 Room Air 06/24/22 09:22 75 06/24/22 07:58 Room Air 06/24/22 07:37 36.4 C L 73 19 126/75 94 Room Air 06/24/22 03:25 36.7 C 71 20 119/73 94 Room Air Laboratory Results Short CBC 06/23/22 06/23/22 06/24/22 Range/Units 11:45 12:42 05:57 WBC Cancelled 5.40 3.91 L Hgb Cancelled 10.4 L 10.8 L Hct Cancelled 31.6 L 33.7 L Plt Count Cancelled 237 248 BMP 06/23/22 06/23/22 06/24/22 11:45 12:42 05:57 Sodium 139 140 Potassium TNP 3.9 4.1 Chloride 108 H 108 H Carbon Dioxide 23 26 BUN 11 12 Creatinine 0.67 0.69 Glucose 89 83 Calcium 8.9 8.8
[2022-06-24] MEDS: LORazepam 1 MG TAB PO PRN ×2 (12:56→21:05)
[2022-06-24 14:56] LABS: Partial Thromboplastin Ratio 1.8
--- NOTE | 2022-06-24 15:13 | Electrocardiogram Report ---
Test Reason : Blood Pressure : / mmHG Vent. Rate : 068 BPM Atrial Rate : 068 BPM P-R Int : 154 ms QRS Dur : 092 ms QT Int : 436 ms P-R-T Axes : 012 057 083 degrees QTc Int : 463 ms Normal sinus rhythm Nonspecific T wave abnormality Abnormal ECG When compared with ECG of 23-JUN-2022 11:27, Nonspecific T wave abnormality no longer evident in Inferior leads Confirmed by Luis Martin ([id number]) on 06/24/2022 3:13:46 PM Referred By: REFERRED SELF Confirmed By:Luis Martin
--- NOTE | 2022-06-24 15:41 | Pulmonary Consultation ---
Date of Consultation June 24, 2022 Assessment & Plan (1) Acute pulmonary embolism: As this is the patient's second pulmonary embolism and this pulmonary embolism is quite large and unprovoked, I would recommend lifelong anticoagulation. She can likely be transition to a DOAC at this time. Would recommend an outpatient hypercoagulable work-up that can be performed by her PCP. Echo did not reveal signs of acute pulmonary hypertension. Troponin is negative, proBNP unremarkable. There is no signs of hemodynamic instability. This is a low to moderate risk PE and does not require higher level of care. Two step prior to discharge. Pulm to sign off. Thanks for allowing us to participate in the care. History of Present Illness Reason for Consultation: Pulmonary embolism Attending Physician: Jayden Sun MD History of Present Illness 82-year-old female with a past medical history of Parkinson's disease, CVA, anxi ety depression who presented to the hospital due to right-sided chest pain occurring 2 days ago. She had pleurisy as well. She was diagnosed with a pulmonary embolism in 2020 after having COVID-19. She was on Eliquis for about a year. Ultimately, she presented to the hospital due to worsening chest pain. She had a chest CTA which revealed bilateral lobar, segmental and subsegmental pulmonary emboli. Echo completed today does not reveal any evidence of pulmonary hypertension. A very small right pleural effusion and pulmonary infarct was noted. Patient was started on IV heparin. Pulmonary is consulted to assist in management with a pulmonary embolism. Allergies Allergy/AdvReac Type Severity Reaction Status Date / Time cyclobenzaprine Allergy Severe ANAPHYLAXIS Verified 06/23/22 16:04 Sulfa (Sulfonamide Allergy Severe Shortness Verified 06/23/22 16:04 Antibiotics) of Breath, Rash tolterodine AdvReac Mild DRY MOUTH Verified 06/23/22 16:04 Home Medications Medication Instructions Recorded Confirmed Type carbidopa 25 mg-levodopa 100 mg 1 tab PO TID 03/02/19 06/23/22 History tablet escitalopram oxalate 10 mg tablet 10 mg PO QAM 03/02/19 06/23/22 History levothyroxine 50 mcg tablet 50 mcg PO QAM 03/02/19 06/23/22 History lorazepam 1 mg tablet 1 - 2 mg PO UD PRN Anxiety/Insomnia 03/02/19 06/23/22 History montelukast 10 mg tablet 10 mg PO QAM 03/02/19 06/23/22 History omeprazole 40 mg capsule,delayed 40 mg PO QAM 03/02/19 06/23/22 History release ropinirole 1 mg tablet 1 mg PO HS 03/02/19 06/23/22 History ondansetron HCl 4 mg tablet 4 mg PO Q8H PRN Nausea 10/14/20 06/23/22 History gabapentin 300 mg capsule 300 mg PO HS 10/15/20 06/23/22 History potassium chloride 10 mEq 10 meq PO QAM 05/12/21 06/23/22 History tablet,extended release(part/cryst) (Klor-Con M) diphenhydramine 25 2 tab PO HS PRN Pain 06/23/22 06/23/22 History mg-acetaminophen 500 mg tablet (Tylenol PM Extra Strength) Patient History Medical History Cerebral vascular disease GERD (gastroesophageal reflux disease) Hyperlipidemia Hypothyroidism Lung nodule Mitral valve prolapse No significant family history Parkinson disease Thoracic radiculopathy Surgical History Previous back surgery S/P cholecystectomy S/P cholecystectomy S/P hysterectomy S/P hysterectomy Status post arthroscopy of shoulder Family History Other Heart disease Parkinson disease Social History Smoking Status: Former smoker Second Hand Exposure: No; Do You Dip or Chew Tobacco: No; Tobacco Cessation Education Requested by Patient: No Hx Alcohol Use: No Hx Substance Use: No Preferred Language: Luxembourgish Communication Ability: Effective Spinner Hand Required: No Beliefs That Will Affect Care: None marital status: / Current Living Situation: Family Current Living Situation Comment: Grandson lives w/ patient. Son lives across the street. Feels Safe at Home: Yes Safety Concerns: Feels Safe At This Time Assistive Devices: Cane Assistive Devices Comment: Reading glasses, uses cane as needed for ambulation Review of Systems Review of Systems: All systems reviewed & are unremarkable except as noted in HPI & below Physical Exam Physical Exam: Constitutional: Patient appears to be of their stated age. Patient is in no apparent distress. Patient is well-developed. Eyes: Pupils are equal round and reactive to light. Conjunctivae are normal. Anicteric sclera. Neck: Trachea is midline. Visual inspection is normal. Respiratory: Clear to auscultation bilaterally. No use of accessory muscles. No significant clubbing noted. Cardiovascular: Regular rate and rhythm. No murmurs. No edema. Gastrointestinal: Normal bowel sounds, soft, nontender and nondistended. No hep atosplenomegaly noted. Musculoskeletal: No cyanosis. Patient is able to move all extremities. Skin: No rashes, warm dry and intact. Neurologic: No obvious focal neurological deficits seen. Psychiatric: Alert and oriented x3 with a euthymic affect. Results & Data Results & Data ([facility]) Vital Signs (Past 12 Hours) Vital Signs Temp Pulse Pulse Resp BP Pulse Ox O2 Del Method 06/24/22 11:14 36.7 C 78 19 111/68 93 Room Air 06/24/22 09:22 75 06/24/22 07:58 Room Air 06/24/22 07:37 36.4 C L 73 19 126/75 94 Room Air PG Care Time/CCT Total # of Minutes Spent Total Time Spent with Patient: Total time spent is greater than 50% in coordination of care (as documented) at patient's floor/unit and/or counseling patient: Coding Level of Care Code 52752 Initial Inpt Care Lvl 2 Diagnoses Acute pulmonary embolism I26.99
[2022-06-24 15:56] LABS: Partial Thromboplastin Time 49.1 Seconds (21.0-31.0)
[2022-06-24] MEDS: ACETAMINOPHEN 325 MG TAB PO PRN (21:04)
[2022-06-24] MEDS: GABAPENTIN 300 MG CAP PO SCH (21:05)
[2022-06-24] MEDS: rOPINIRole HCL 1 MG TABLET PO SCH (21:06)
[2022-06-24] MEDS: LIDOCAINE 5% 1 PATCH TD SCH (21:06)
[2022-06-24] MEDS: ONDANSETRON INJ 2 MG/ML 2 ML VIAL IV PRN (21:07)
[2022-06-25] MEDS: HEPARIN SODIUM/DEXTROSE 25,000 UNITS/500 ML BAG IV SCH (01:36)
[2022-06-25 06:19] LABS: Hematocrit (blood only) 30.8 % (34.1-44.9); Hemoglobin 10.1 g/dl (12.0-16.0); Mean Corpuscular Hemoglobin 30.1 pg (25.0-34.0); Mean Corpuscular Hgb Conc 32.8 g/dL (32.0-36.0); Mean Corpuscular Volume 91.7 fL (80.0-100.0); Mean Platelet Volume 9.1 fL (9.4-12.3); Platelet Count 247 K/uL (130-400); RDW Coefficient of Variation 13.8 % (11.5-14.5); RDW Standard Deviation 46.6 fL (36.4-46.3); Red Blood Count 3.36 M/uL (3.93-5.22); White Blood Count 3.72 K/ul (4.8-10.8)
[2022-06-25 06:50] LABS: BUN Creatinine Ratio 18.2 (10-20); Calcium 8.7 mg/dl (8.5-10.1); Chol HDL Ratio 3.4 (0-5); Creatinine Clr Calc Pharmacy 49.3 ml/min; Est GFR (African American) 95.3 ml/min; Est GFR (Non-African American) 82.3 ml/min; Potassium 3.5 mmol/L (3.5-5.1)
[2022-06-25 06:54] LABS: Partial Thromboplastin Ratio 1.9
[2022-06-25 07:04] LABS: Partial Thromboplastin Time 51.8 Seconds (21.0-31.0)
[2022-06-25] MEDS ORDERED: HEPARIN STOP ORDER ONE (08:45)
[2022-06-25] MEDS: LEVOTHYROXINE SODIUM 50 MCG TABLET PO SCH (08:51)
[2022-06-25] MEDS: CARBIDOPA/LEVODOPA 25/100MG TAB PO SCH (08:51)
[2022-06-25] MEDS: MONTELUKAST SODIUM 10 MG TABLET PO SCH (08:51)
[2022-06-25] MEDS: PANTOprazole 40 MG TAB PO SCH (08:51)
[2022-06-25] MEDS: ESCITALOPRAM OXALATE 10 MG TAB PO SCH (08:52)
[2022-06-25] MEDS: POTASSIUM CHLORIDE 10 MEQ TABCR PO SCH (08:52)
[2022-06-25] MEDS ORDERED: APIXABAN 5 MG TABLET PO SCH (09:00)
--- NOTE | 2022-06-25 12:14 | Hospitalist Progress Note ---
Date of Service June 25, 2022 Assessment & Plan (1) Acute pulmonary embolism: (2) Parkinson disease: (3) Hypothyroidism: (4) Anxiety: (5) Depression: (6) Hyperlipidemia: Plan Patient is an 82 yr female with H/O Parkinson's disease, history of CVA, anxiety, depression, hypothyroidism and other medical problems listed below who presents with right-sided pain starting yesterday and was found to have bilateral pulmonary emboli. Acute bilateral pulmonary emboli Right middle lobe developing pulmonary infarct H/O PE in the past, was thought to be due to COVID 19 infection (Was on Eliquis at that time) --Elevated D-dimer of 1240 --Chest CTA: Bilateral lobar, segmental and subsegmental pulmonary emboli. Mild straightening of the intraventricular septum may represent associated right heart strain. Small right pleural effusion with probable developing pulmonary infarct within the right middle lobe. 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 --ECHO: Left ventricle is normal in size. Left ventricle systolic function is normal. EF 55 to 60%. Right ventricle is normal in size. Right ventricle systolic function is normal. Mild mitral regurgitation. Left and right atrium is normal. No evidence of pulmonary hypertension. --Saturating well on room air. Continue IV heparin>>Transition to Eliquis Hypercoagulable work-up as outpatient Appreciate Pulmonology Input 2 step: Doesn't qualify for oxygen Left subclavian artery Stenosis CT as above H/O intolerance to Aggrenox, full dose aspirin as per patient Continue anticoagulation as above Needs follow up with Vascular surgery as outpatient Parkinson's Disease Continue carbidopa/levodopa TID Follows with Dr. Ennis Depression/Anxiety Continue Escitalopram Ativan as needed Restless leg syndrome Continue Requip HS Hypothyroidism Continue levothyroxine DVT Px: Eliquis Code status: CONDITIONAL CODE: yes to CPR/defibrillation, no to intubation Admission and Anticipated Discharge Date Admission Date: June 23, 2022 Subjective Patient is seen and examined at bedside Pleuritic pain much better today Had 2 step earlier today--did not qualify for oxygen Denies any dyspnea today Also denies any dizziness, nausea, abdominal pain Offers no other complaints No bleeding issues while on IV heparin Review of Systems Review of Systems: All systems reviewed & are unremarkable except as noted in Subjective Physical Exam Physical Exam: Physical Exam: Vitals signs as noted above General Appearance:Thin, elderly, No apparent distress Head: normocephalic, Atraumatic Eyes: normal inspection, EOMI Neck: supple, Trachea midline Respiratory/Chest: Normal breath sounds, CTA, No accessory muscle use Cardiovascular: S1, S2, No murmur Abdomen/GI:Soft, Non tender, Bowel sounds present Extremities/Musculoskeletal:normal inspection, no edema Neurologic/Psych:AAOX3, grossly no focal neurological deficits Skin: normal color, warm Results & Data Results & Data ([facility]) Vital Signs (Past 12 Hours) Vital Signs Temp Pulse Pulse Pulse Pulse Resp Resp 06/25/22 11:05 36.6 C 83 18 06/25/22 07:47 85 80 82 20 06/25/22 07:41 06/25/22 07:11 36.9 C 71 19 06/25/22 02:55 36.6 C 78 20 Resp Resp BP Pulse Ox Pulse Ox Pulse Ox O2 Del Method 06/25/22 11:05 102/57 L 91 Room Air 06/25/22 07:47 18 18 94 92 06/25/22 07:41 Room Air 06/25/22 07:11 143/71 H 99 Room Air 06/25/22 02:55 106/68 90 Room Air O2 Flow Rate 06/25/22 11:05 06/25/22 07:47 92 06/25/22 07:41 06/25/22 07:11 06/25/22 02:55 Laboratory Results Short CBC 06/25/22 Range/Units 05:26 WBC 3.72 L (4.8-10.8) K/ul Hgb 10.1 L (12.0-16.0) g/dl Hct 30.8 L (34.1-44.9) % Plt Count 247 (130-400) K/uL BMP 06/25/22 05:26 Sodium 138 Potassium 3.5 Chloride 107 Carbon Dioxide 23 BUN 12 Creatinine 0.66 Glucose 84 Calcium 8.7
--- NOTE | 2022-06-25 12:56 | Discharge Summary ---
Date of Service June 25, 2022 Admission HPI Per Admitting Provider This is an 82-year-old female with PMH of Parkinson's disease, history of CVA, anxiety, depression, hypothyroidism and other medical problems listed below who presents with right-sided pain starting yesterday. Pain is aching and feels like a sore muscle and is located under her breast with radiation up into right armpit. Pain is made worse with deep inspiration and movement and made better when she lies directly on her right side and applies pressure. Denies any associated palpitations or shortness of breath. No fever, chills or congestion. No chest pain, wheezing, nausea, vomiting, abdominal pain, dysuria, diarrhea or constipation. Denies any history of arrhythmias. Was diagnosed with a PE in the winter 2020 following COVID-19 infection. Was on Eliquis for 1 year before being instructed by provider to continue as she had completed treatment course. Is currently comfortable during exam while lying at rest. 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 Also dealing with of her last year due to COVID-pneumonia. Admission Exam Per Admitting Provider Physical Exam Physical Exam: General Appearance:WD/WN, vitals as above, NAD, sitting up in bed, pleasant, conversing easily Head: normocephalic, atraumatic Eyes:normal inspection, PERRL, conjunctivae normal, anicteric sclerae ENT: external ear and nose normal, oropharynx normal Neck: normal visual inspection, trachea midline, no thyromegaly Respiratory:normal respiratory effort, lungs clear to auscultation, no wheeze, rales, rhonchi. No accessory muscle use Cardiovascular: regular rate, rhythm, no murmur, normal peripheral pulses, no BLE edema. Vessels: no JVD Chest:TTP on R chest wall/axilla region Abdomen/GI: normal bowel sounds, soft, nontender, no hepatosplenomegaly Extremities/Musculoskeletal: no cyanosis or clubbing, extremities motor strength 5/5 Neurologic: PERRL, EOMI, accommodation nl, no face palsy, no dysarthria, CN's II-XI intact bilaterally and moves all extremities, mild BUE tremors noted Psychiatric:A+Ox3, euthymic affect Skin: no rashes, normal color, warm/dry Principal Diagnosis Acute bilateral pulmonary emboli Right middle lung pulmonary infarct Left subclavian artery Stenosis Discharge Data Allergies Allergy/AdvReac Type Severity Reaction Status Date / Time cyclobenzaprine Allergy Severe ANAPHYLAXIS Verified 06/23/22 16:04 Sulfa (Sulfonamide Allergy Severe Shortness Verified 06/23/22 16:04 Antibiotics) of Breath, Rash tolterodine AdvReac Mild DRY MOUTH Verified 06/23/22 16:04 Consultations 06/23/22 14:33 ED Decision to Admit Stat 06/23/22 16:36 Consult Pulmonology Routine Procedures Performed CTA: The heart is mildly enlarged. No pericardial effusion. Moderate coronary artery calcifications. Atherosclerosis of the thoracic aorta without aneurysm. High- grade stenosis at the origin of the left subclavian artery redemonstrated secondary to calcified plaque. Descending thoracic aortic tortuosity. Mild straightening of the intraventricular septum. Bilateral lobar, segmental and subsegmental pulmonary emboli, notably within the right upper lobe. No central pulmonary embolus. CT CHEST: No thyroid nodule or lymphadenopathy. Trace left and small right pleural effusions. No pneumothorax. Mild biapical pleural-parenchymal scarring. There are no suspicious pulmonary nodules or masses identified. Mild dependent subsegmental bibasilar atelectasis. Wedge-shaped area of consolidation with adjacent groundglass opacity noted within the lateral segment of the right middle lobe, image 109. Central airways are generally patent. Intrahepatic biliary ductal dilation redemonstrated status post cholecystectomy. No acute process of the imaged upper abdomen. Unremarkable soft tissues. Degenerative changes of the shoulders and spine. IMPRESSION: 1. Bilateral lobar, segmental and subsegmental pulmonary emboli. Mild straightening of the intraventricular septum may represent associated right heart strain. 2. Small right pleural effusion with probable developing pulmonary infarct within the right middle lobe. 3. 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 Ordered Studies 06/23/22 12:25 CT angio chest PE protocol Stat Hospital Course (1) Acute pulmonary embolism: (2) Parkinson disease: (3) Hypothyroidism: (4) Anxiety: (5) Depression: (6) Hyperlipidemia: Plan Patient is an 82 yr female with H/O Parkinson's disease, history of CVA, anxiety, depression, hypothyroidism and other medical problems listed below who presents with right-sided pain starting yesterday and was found to have bilateral pulmonary emboli. Acute bilateral pulmonary emboli Right middle lobe developing pulmonary infarct H/O PE in the past, was thought to be due to COVID 19 infection (Was on Eliquis at that time) --Elevated D-dimer of 1240 --Chest CTA: Bilateral lobar, segmental and subsegmental pulmonary emboli. Mild straightening of the intraventricular septum may represent associated right heart strain. Small right pleural effusion with probable developing pulmonary infarct within the right middle lobe. 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 --ECHO: Left ventricle is normal in size. Left ventricle systolic function is normal. EF 55 to 60%. Right ventricle is normal in size. Right ventricle systolic function is normal. Mild mitral regurgitation. Left and right atrium is normal. No evidence of pulmonary hypertension. --Saturating well on room air. Continue IV heparin>>Transition to Eliquis Hypercoagulable work-up as outpatient Appreciate Pulmonology Input 2 step: Doesn't qualify for oxygen Left subclavian artery Stenosis CT as above H/O intolerance to Aggrenox, full dose aspirin as per patient Continue anticoagulation as above Needs follow up with Vascular surgery as outpatient Parkinson's Disease Continue carbidopa/levodopa TID Follows with Dr. Ennis Depression/Anxiety Continue Escitalopram Ativan as needed Restless leg syndrome Continue Requip HS Hypothyroidism Continue levothyroxine DVT Px: Eliquis Code status: CONDITIONAL CODE: yes to CPR/defibrillation, no to intubation Total Time Total Time Spent Total Time Spent (In Minutes): 45 minutes Discharge Plan Discharge Items Patient Disposition: Home - Home Health Services Reason For Visit: PES, R SIDED CHEST PAIN Discharge Diagnosis: Acute bilateral pulmonary emboli Right middle lung pulmonary infarct Left subclavian artery Stenosis Activity: Per Instructions section Exercise/Sports: Gradually increase as tolerated Non-emergency contact: Primary Care Provider and Data Report Analyst Call non-emergency contact if: you have any medication questions, your symptoms worsen and you have a fever Follow-up/Referrals: Tracey Vides PA-C [Primary Care Provider] - (Date & Time 06/30/2022 11:00 AM Provider Juanita Mallory MD [facility] ) Hung Crum MD [Outside Practitioners] - (Date & Time 07/14/2022 9:20 AM Provider Hung Crum MD Department Pulmonary Medicine, [facility] ) Diet: Heart Healthy Addtl Attending Provider Instructions: Follow-up with your primary care physician Tracey Vides PA-C on 06/30/2022 11:00 AM as scheduled Follow-up with your account review specialist on 07/14/2022 9:20 AM Consider following up with your vascular surgeon for further evaluation of Left subclavian artery Stenosis which was incidentally noted on CT scan. --- Start taking Apixaban (Eliquis) 10mg twice a day for 1 week, then take 5 mg twice a day. --Get Blood test (hypercoagulable work-up) as outpatient and follow-up with your physician. Seek immediate medical attention if your symptoms reoccur or worsen Please take all medications as instructed on discharge list below. Please call if you have any questions or problems. You can reach a [facility] hospitalist on duty at [facility] 24 hours a day by calling [phone] Pending Studies at Discharge: No Stand-Alone Forms: My [facility], Smoking Cessation Medications and DC Order Prescriptions: New Eliquis 5 mg tablet 5 mg PO UD Qty: 74 0RF Rx Instructions: Start taking Apixaban 10mg twice a day for 7 days, then take 5mg twice a day Continued ropinirole 1 mg Tablet 1 mg PO HS omeprazole 40 mg Capsule,Delayed Release(Dr/Ec) 40 mg PO QAM levothyroxine 50 mcg tablet 50 mcg PO QAM Rx Instructions: Take this medication at least 30 minutes before breakfast or any other medications montelukast 10 mg Tablet 10 mg PO QAM lorazepam 1 mg tablet 1 - 2 mg PO UD PRN (Reason: Anxiety/Insomnia) carbidopa-levodopa 25-100 mg Tablet 1 tab PO TID escitalopram oxalate 10 mg tablet 10 mg PO QAM ondansetron HCl 4 mg tablet 4 mg PO Q8H PRN (Reason: Nausea) gabapentin 300 mg capsule 300 mg PO HS diphenhydramine-acetaminophen [Tylenol PM Extra Strength] 25-500 mg Tablet 2 tab PO HS PRN (Reason: Pain) potassium chloride [Klor-Con M10] 10 mEq tablet,ER particles/crystals 10 meq PO QAM Discharge Orders: Discharge Order (Routine); Ordered 06/25/22 Ordered By: Jayden Sun Admission Data Admit Date/Time: 06/23/22 15:08 Attending Provider: Jayden Sun Admit Provider: Kingsley Mohr Primary Care Provider: Tracey Vides Other Providers: Kingsley Mohr ; Tomer Navarrete
== END 2022-06-25 14:09 | disposition home health service (06) ==
LOC: ED 10:51 → INTOOBSV 15:08 → 4W 15:08 → SUATTDRO 15:08 → 4W 21:31

== ENCOUNTER 2023-01-08 19:53 | Observation (INO) ==
[2023-01-08 20:41] LABS: Basophils # (auto) 0.03 K/uL (0-0.2); Basophils % (auto) 0.6 %; Eosinophils # (auto) 0.09 K/uL (0-0.50); Eosinophils % (auto) 1.9 %; Hematocrit (blood only) 37.3 % (37.0-47.0); Hemoglobin 11.8 g/dl (12.0-16.0); Immature Granulocytes # (auto) 0.01 K/uL (0.01-0.20); Immature Granulocytes % (auto) 0.2 %; Lymphocytes # (auto) 2.39 K/uL (1.2-3.4); Mean Corpuscular Hemoglobin 29.6 pg (25.0-34.0); Mean Corpuscular Hgb Conc 31.6 g/dL (32.0-36.0); Mean Corpuscular Volume 93.5 fL (80.0-100.0); Mean Platelet Volume 8.8 fL (9.4-12.4); Monocytes # (auto) 0.36 K/uL (0.11-0.59); Monocytes % (auto) 7.5 %; Neutrophils % (auto) 39.8 %; Platelet Count 264 K/uL (130-400); RDW Coefficient of Variation 14.1 % (11.5-14.5); RDW Standard Deviation 48.7 fL (36.4-46.3); Red Blood Count 3.99 M/uL (4.20-5.40); White Blood Count 4.78 K/ul (4.8-10.8)
[2023-01-08 21:00] LABS: Anion Gap 6 (3-11); Blood Urea Nitrogen 13 mg/dl (6-23); Carbon Dioxide 25 mmol/L (21-32); Chloride 108 mmol/L (98-107); Creatinine Clr Calc Pharmacy 35.6 ml/min; Est GFR (African American) 66.3 ml/min; Est GFR (Non-African American) 57.2 ml/min; Glucose 86 mg/dl (70-99(Fasting)); Potassium 3.8 mmol/L (3.5-5.1); Sodium 139 mmol/L (136-145)
[2023-01-08 21:06] LABS: Troponin I High Sensitivity 4.8 pg/ml (0-14)
[2023-01-08 21:07] LABS: Alanine Aminotransferase < 3 U/L (7-52); Albumin Globulin Ratio 1.6 (0.9-2); Albumin Level 4.4 gm/dl (3.4-5.0); Alkaline Phosphatase 67 U/L (34-104); Aspartate Aminotransferase 9 U/L (13-39); Bilirubin,Total 0.4 mg/dl (0.2-1.0); Globulin 2.7 gm/dl (2.5-4.0); Total Protein 7.1 gm/dl (6.0-8.3)
[2023-01-08 21:22] LABS: Influenza A virus by PCR Negative (Neg); Influenza B virus by PCR Negative (Neg); RSV by PCR Negative (Neg); SARS CoV2 RNA(COVID-19) Ceph NEGATIVE (Negative)
[2023-01-08 21:22] LABS: Partial Thromboplastin Time 28.2 Seconds (21.0-31.0); Prothrombin Time 10.6 Seconds (9.0-12.0)
[2023-01-08] MEDS ORDERED: NITROGLYCERIN 2% OINTMENT 30GM TUBE EXT STA (23:11)
--- NOTE | 2023-01-08 23:25 | Emergency Department Note ---
Impression & Plan Chest pain, Hypertension, Acute electrocardiogram changes ED Provider Note INFORMANT: Patient and family ED PROVIDER(S): Charles Chowdhury MD CHIEF COMPLAINT: Chest pain PLAN: Disposition: Admitted Condition: Good Outpatient prescription management: none Referral: None MEDICAL DECISION MAKING: Patient presented because of chest pain. A work-up was initiated. She had a mi ldly decreased white blood cell count and hemoglobin. Chemistry panel, LFTs, troponin, and coags were negative. COVID-negative. Chest x-ray was negative. ECG showed a sinus rhythm with inferior T wave inversions. Nitropaste was applied. On reassessment the patient was doing better. Because of the issues further management in the hospital will be appropriate. Patient was in agreement. Consultation was made with Dr. Jean-Claude Lozada, [facility] hospitalist service. Case was discussed and diagnostics were reviewed. Patient was evaluated in the ER and admitted for further management. Discussed with manager of human resources After review of the information above and other included data, I feel the patient requires admission. Triage Nursing notes reviewed and agree them. Vital Signs: reviewed and remarkable for no significant abnormalities Prior /Outside records reviewed: Prior hospitalization last year reviewed and significant for pulmonary emboli. Differential diagnosis: Cardiac ischemia, aortic dissection, pulmonary embolism, pneumothorax, pneumonia, pericarditis, myocarditis, esophageal rupture, GERD, cholecystitis, pancreatitis, musculoskeletal, as well as other pathologies. Diagnostics, as interpreted by me: ECG: Twelve-lead ECG reveals normal sinus rhythm 79 bpm. Inferior T wave inversions present. Inferior Q waves present. When compared to prior ECG the inferior T wave inversions are new. Cardiac Monitoring: Cardiac monitoring ordered by me: The patient was placed on continuous cardiac monitoring and observed. It revealed a normal sinus rhythm at 83 beats per minute without ectopy or evidence of dysrhythmia. Medical decision rules: Patient is moderate risk by HEART score Imaging studies: Chest x-ray. Findings: A chest x-ray was performed and revealed no pneumothorax, effusion, infiltrate, pulmonary edema, free air under the diaphragm, or wide mediastinum. Impression: No acute disease. HPI: The patient is a 82 year old female who presents to the Emergency Room with complaints of chest pain . This started at 4 PM and is intermittent and retrosternal. The patient also notes the following associated symptoms, generalized weakness. The patient has taken no medication for relieving factors. Current pain is rated as 0/10 patient reported pain of 5 when she checked in. Patient is on Eliquis secondary to history of PE. Pt denies LOC, headache, fevers, chills, diaphoresis, visual changes, neck pain, breathing difficulties, nausea, vomiting, abdominal pain, back pain, melena, hematochezia, urinary symptoms, numbness, or other complaints. PAST MEDICAL HISTORY: See Below, Parkinson disease, PE PAST SURGICAL HISTORY: See Below, SOCIAL HISTORY: See Below, retired HOME MEDICATIONS: See Below ALLERGIES: See Below VITALS: See Below PHYSICAL EXAMINATION: GENERAL: Awake, alert, well-appearing, in no distress HENT: Normocephalic, atraumatic. Oropharynx unremarkable. EYES: Normal conjunctiva. Sclera non-icteric. NECK: Inspection normal. Non-tender. Supple. No nuchal rigidity. FROM. No masses. RESPIRATORY: Clear to auscultation. No wheezes. No rales. Normal respiratory effort. CARDIAC: Normal rate. Normal rhythm. No murmurs. No rubs. Extremities warm and well perfused. Pulses equal. No JVD. GI: Soft, non-distended. No tenderness to palpation. No rebound or guarding. No masses. MUSCULOSKELETAL: Atraumatic. Chest examination reveals no tenderness. The back is symmetrical on inspection without obvious abnormality. There is no CVA tenderness to palpation. No joint edema. LOWER EXTREMITIES: Calves are equal size bilaterally and non-tender. No edema. No discoloration. NEURO: Normal sensorium. No sensory or motor deficits noted. SKIN: No rash or jaundice noted. Past Med/Surg History Medical History Cerebral vascular disease GERD (gastroesophageal reflux disease) Hyperlipidemia Hypothyroidism Lung nodule Mitral valve prolapse No significant family history Parkinson disease Thoracic radiculopathy Surgical History Previous back surgery S/P cholecystectomy S/P cholecystectomy S/P hysterectomy S/P hysterectomy Status post arthroscopy of shoulder Family History Other Heart disease Parkinson disease Social History Smoking Status: Former smoker Cigarettes Per Day: 1 ppd for 20yr quit in 1979; Second Hand Exposure: No; Hx Alcohol Use: No Hx Substance Use: No Preferred Language: Norwegian Communication Ability: Effective Hat Ironer Required: No Beliefs That Will Affect Care: None marital status: / Current Living Situation: Alone Current Living Situation Comment: Grandson lives w/ patient. Son lives across the street. Feels Safe at Home: Yes Assistive Devices: Cane Allergies Allergies Allergy/AdvReac Type Severity Reaction Status Date / Time cyclobenzaprine Allergy Severe ANAPHYLAXIS Verified 06/23/22 16:04 Sulfa (Sulfonamide Allergy Severe Shortness Verified 06/23/22 16:04 Antibiotics) of Breath, Rash nitroglycerin AdvReac Mild Headache Verified 01/09/23 02:53 tolterodine AdvReac Mild DRY MOUTH Verified 06/23/22 16:04 Home Meds Home Medications Medication Instructions Recorded Confirmed carbidopa 25 mg-levodopa 100 mg 1 tab PO TID 03/02/19 06/23/22 tablet escitalopram oxalate 10 mg tablet 10 mg PO HS 03/02/19 06/23/22 levothyroxine 50 mcg tablet 50 mcg PO QAM 03/02/19 06/23/22 lorazepam 1 mg tablet 1 - 2 mg PO UD PRN Anxiety/Insomnia 03/02/19 06/23/22 montelukast 10 mg tablet 10 mg PO QAM 03/02/19 06/23/22 omeprazole 40 mg capsule,delayed 40 mg PO HS 03/02/19 06/23/22 release ropinirole 1 mg tablet 1 mg PO HS 03/02/19 06/23/22 ondansetron HCl 4 mg tablet 4 mg PO BID 10/14/20 06/23/22 gabapentin 300 mg capsule 300 mg PO HS 10/15/20 06/23/22 potassium chloride 10 mEq 10 meq PO QAM 05/12/21 06/23/22 tablet,extended release(part/cryst) (Klor-Con M) diphenhydramine 25 2 tab PO HS PRN Pain 06/23/22 06/23/22 mg-acetaminophen 500 mg tablet (Tylenol PM Extra Strength) apixaban 5 mg tablet (Eliquis) 5 mg PO BID 01/09/23 Results & Data (ED) Vital Signs Vital Signs - 24 hr 01/08/23 20:07 Temperature 37 C Temperature Source Temporal Artery Scan Pulse Rate 83 Respiratory Rate 20 Respiratory Effort / Characteristics Non-Labored Spontaneous Respiratory Depth Normal Blood Pressure 160/102 H Blood Pressure Mean 121 Pulse Oximetry 96 Oxygen Delivery Method Room Air Sepsis New/Unexplained Change in Mental Status N/A Sepsis Action Taken by Nursing No Action Required Laboratory Data 01/08/23 20:17 01/08/23 20:17 Lab Results 01/08/23 01/08/23 01/08/23 Range/Units 20:17 20:17 20:17 WBC 4.78 L (4.8-10.8) K/ul RBC 3.99 L (4.20-5.40) M/uL Hgb 11.8 L (12.0-16.0) g/dl Hct 37.3 (37.0-47.0) % MCV 93.5 (80.0-100.0) fL MCH 29.6 (25.0-34.0) pg MCHC 31.6 L (32.0-36.0) g/dL RDW Std Deviation 48.7 H (36.4-46.3) fL RDW Coeff of Arturo 14.1 (11.5-14.5) % Plt Count 264 (130-400) K/uL MPV 8.8 L (9.4-12.4) fL Immature Gran % (Auto) 0.2 % Neut % (Auto) 39.8 % Lymph % (Auto) 50.0 % Nye % (Auto) 7.5 % Eos % (Auto) 1.9 % Baso % (Auto) 0.6 % Neut # (Auto) 1.90 (1.40-6.50) K/uL Lymph # (Auto) 2.39 (1.2-3.4) K/uL Nye # (Auto) 0.36 (0.11-0.59) K/uL Eos # (Auto) 0.09 (0-0.50) K/uL Baso # (Auto) 0.03 (0-0.2) K/uL Immature Gran # (Auto) 0.01 (0.01-0.20) K/uL PT 10.6 (9.0-12.0) Seconds INR 1.0 (0.9-1.1) APTT 28.2 (21.0-31.0) Seconds PTT Ratio 1.0 Sodium 139 (136-145) mmol/L Potassium 3.8 (3.5-5.1) mmol/L Chloride 108 H (98-107) mmol/L Carbon Dioxide 25 (21-32) mmol/L Anion Gap 6 (3-11) BUN 13 (6-23) mg/dl Creatinine 0.93 (0.6-1.2) mg/dl Est Cr Clr Drug Dosing 35.6 ml/min Est GFR ( Amer) 66.3 ml/min Est GFR (Non-Af Amer) 57.2 ml/min BUN/Creatinine Ratio 14.0 (10-20) Glucose 86 (70-99(Fasting)) mg/dl Calcium 9.0 (8.6-10.3) mg/dl Magnesium 1.7 (1.7-2.4) mg/dl Total Bilirubin 0.4 (0.2-1.0) mg/dl AST 9 L (13-39) U/L ALT < 3 L (7-52) U/L Alkaline Phosphatase 67 (34-104) U/L Troponin I High Sens 4.8 (0-14) pg/ml Total Protein 7.1 (6.0-8.3) gm/dl Albumin 4.4 (3.4-5.0) gm/dl Globulin 2.7 (2.5-4.0) gm/dl Albumin/Globulin Ratio 1.6 (0.9-2) TSH (0.300-4.500) uIu/ml Lyme Disease IgG Ab (Negative) Lyme Disease IgM Ab (Negative) SARS-CoV-2 (PCR) (Negative) Influenza Type A (PCR) (Neg) Influenza Type B (PCR) (Neg) RSV (RT-PCR) (Neg) 01/08/23 01/08/23 01/08/23 Range/Units 20:18 20:18 20:18 WBC (4.8-10.8) K/ul RBC (4.20-5.40) M/uL Hgb (12.0-16.0) g/dl Hct (37.0-47.0) % MCV (80.0-100.0) fL MCH (25.0-34.0) pg MCHC (32.0-36.0) g/dL RDW Std Deviation (36.4-46.3) fL RDW Coeff of Arturo (11.5-14.5) % Plt Count (130-400) K/uL MPV (9.4-12.4) fL Immature Gran % (Auto) % Neut % (Auto) % Lymph % (Auto) % Nye % (Auto) % Eos % (Auto) % Baso % (Auto) % Neut # (Auto) (1.40-6.50) K/uL Lymph # (Auto) (1.2-3.4) K/uL Nye # (Auto) (0.11-0.59) K/uL Eos # (Auto) (0-0.50) K/uL Baso # (Auto) (0-0.2) K/uL Immature Gran # (Auto) (0.01-0.20) K/uL PT (9.0-12.0) Seconds INR (0.9-1.1) APTT (21.0-31.0) Seconds PTT Ratio Sodium (136-145) mmol/L Potassium (3.5-5.1) mmol/L Chloride (98-107) mmol/L Carbon Dioxide (21-32) mmol/L Anion Gap (3-11) BUN (6-23) mg/dl Creatinine (0.6-1.2) mg/dl Est Cr Clr Drug Dosing ml/min Est GFR ( Amer) ml/min Est GFR (Non-Af Amer) ml/min BUN/Creatinine Ratio (10-20) Glucose (70-99(Fasting)) mg/dl Calcium (8.6-10.3) mg/dl Magnesium (1.7-2.4) mg/dl Total Bilirubin (0.2-1.0) mg/dl AST (13-39) U/L ALT (7-52) U/L Alkaline Phosphatase (34-104) U/L Troponin I High Sens (0-14) pg/ml Total Protein (6.0-8.3) gm/dl Albumin (3.4-5.0) gm/dl Globulin (2.5-4.0) gm/dl Albumin/Globulin Ratio (0.9-2) TSH 0.778 (0.300-4.500) uIu/ml Lyme Disease IgG Ab Negative (Negative) Lyme Disease IgM Ab Equivocal A (Negative) SARS-CoV-2 (PCR) NEGATIVE (Negative) Influenza Type A (PCR) Negative (Neg) Influenza Type B (PCR) Negative (Neg) RSV (RT-PCR) Negative (Neg) Administered Medications Apixaban (Apixaban 5 Mg Tablet) 5 mg PO BID [facility] Stop: 02/08/23 08:59 Last Admin: 01/09/23 20:37 Dose: 5 mg Documented By: Admin: 01/09/23 08:36 Dose: 5 mg Documented By: CHRIS Carbidopa/Levodopa (Carbidopa/Levodopa 25/100mg Tab) 1 tab PO TID [facility] Stop: 02/08/23 08:59 Last Admin: 01/09/23 20:36 Dose: 1 tab Documented By: Admin: 01/09/23 14:30 Dose: 1 tab Documented By: Admin: 01/09/23 08:36 Dose: 1 tab Documented By: CHRIS Escitalopram Oxalate (Escitalopram Oxalate 10 Mg Tab) 10 mg PO [facility] Stop: 02/08/23 20:59 Last Admin: 01/09/23 20:36 Dose: 10 mg Documented By: IRISH Gabapentin (Gabapentin 300 Mg Cap) 300 mg PO [facility] Stop: 02/08/23 20:59 Last Admin: 01/09/23 20:36 Dose: 300 mg Documented By: IRISH Levothyroxine Sodium (Levothyroxine Sodium 50 Mcg Tablet) 50 mcg PO DAILYBB [facility] Stop: 02/08/23 06:29 Last Admin: 01/09/23 06:08 Dose: 50 mcg Documented By: GUTIERREZ Lorazepam (Lorazepam 0.5 Mg Tab) 0.5 mg PO BID PRN PRN Reason: Anxiety Stop: 02/08/23 00:22 Last Admin: 01/09/23 20:36 Dose: 0.5 mg Documented By: Admin: 01/09/23 11:18 Dose: 0.5 mg Documented By: CHRIS Montelukast Sodium (Montelukast Sodium 10 Mg Tablet) 10 mg PO QAM [facility] Stop: 02/08/23 08:59 Last Admin: 01/09/23 08:36 Dose: 10 mg Documented By: CHRIS Ondansetron HCl (Ondansetron 4 Mg Od Tab) 4 mg PO BID [facility] Stop: 02/08/23 08:59 Last Admin: 01/09/23 20:37 Dose: 4 mg Documented By: Admin: 01/09/23 08:35 Dose: 4 mg Documented By: CHRIS Pantoprazole Sodium (Pantoprazole 40 Mg Tab) 40 mg PO HS [facility] Stop: 02/08/23 20:59 Last Admin: 01/09/23 20:36 Dose: 40 mg Documented By: IRISH Ropinirole HCl (Ropinirole Hcl 1 Mg Tablet) 1 mg PO HS [facility] Stop: 02/08/23 20:59 Last Admin: 01/09/23 20:36 Dose: 1 mg Documented By: IRISH Tramadol HCl (Tramadol Hcl 50 Mg Tablet) 25 mg PO Q4H PRN PRN Reason: Pain Stop: 02/08/23 03:20 Last Admin: 01/09/23 20:35 Dose: 25 mg Documented By: IRISH Discontinued Medications Apixaban (Apixaban 5 Mg Tablet) 5 mg PO NOW STA Stop: 01/09/23 01:50 Last Admin: 01/09/23 02:37 Dose: 5 mg Documented By: HERBERT Escitalopram Oxalate (Escitalopram Oxalate 10 Mg Tab) 10 mg PO NOW STA Stop: 01/09/23 00:24 Last Admin: 01/09/23 01:37 Dose: 10 mg Documented By: HERBERT Gabapentin (Gabapentin 100 Mg Cap) 100 mg PO NOW STA Stop: 01/09/23 00:24 Last Admin: 01/09/23 01:37 Dose: 100 mg Documented By: HERBERT Sodium Chloride (Nss 1000ml) 1,000 mls @ 50 mls/hr IV .Q20H ONE Stop: 01/09/23 21:36 Last Infusion: 01/09/23 23:06 Dose: 0 mls/hr Documented By: Admin: 01/09/23 02:40 Dose: 50 mls/hr Documented By: HERBERT Ceftriaxone Sodium (Rocephin) 2,000 mg in 70 mls @ 100 mls/hr IV NOW ONE; Protocol Stop: 01/09/23 03:41 Last Infusion: 01/09/23 05:54 Dose: 0 mls/hr Documented By: Admin: 01/09/23 05:12 Dose: 100 mls/hr Documented By: GUTIERREZ Ioversol (Optiray 320 500ml) 114 ml IV ONCE ONE Stop: 01/09/23 01:23 Last Admin: 01/09/23 01:23 Dose: 114 ml Documented By: CHICO Lisinopril (Lisinopril 2.5 Mg Tab) 2.5 mg PO ONE ONE Stop: 01/09/23 00:24 Last Admin: 01/09/23 01:38 Dose: 2.5 mg Documented By: HERBERT Lisinopril (Lisinopril 2.5 Mg Tab) 2.5 mg PO ONE ONE Stop: 01/09/23 06:51 Last Admin: 01/09/23 08:35 Dose: 2.5 mg Documented By: CHRIS Nitroglycerin (Nitroglycerin 2% Ointment 30gm Tube) 0.5 inch EXT NOW STA Stop: 01/08/23 23:12 Last Admin: 01/08/23 23:22 Dose: 0.5 inch Documented By: HERBERT Ondansetron HCl (Ondansetron 4 Mg Od Tab) 4 mg PO NOW STA Stop: 01/09/23 01:35 Last Admin: 01/09/23 02:37 Dose: 4 mg Documented By: HERBERT Pantoprazole Sodium (Pantoprazole 40 Mg Tab) 40 mg PO NOW STA Stop: 01/09/23 00:24 Last Admin: 01/09/23 01:37 Dose: 40 mg Documented By: HERBERT Ropinirole HCl (Ropinirole Hcl 1 Mg Tablet) 1 mg PO NOW STA Stop: 01/09/23 00:24 Last Admin: 01/09/23 02:36 Dose: 1 mg Documented By: HERBERT Tramadol HCl (Tramadol Hcl 50 Mg Tablet) 25 mg PO NOW STA Stop: 01/09/23 00:18 Last Admin: 01/09/23 01:37 Dose: 25 mg Documented By: HERBERT Discharge Plan Visit Data Chief Complaint: Weakness Stated Complaint: FATIGUE, CHEST PAIN, NECK PAIN ED Provider: Charles Chowdhury Discharge Problem: Chest pain, Hypertension, Acute electrocardiogram changes Patient Disposition: Admitted As Inpatient Discharge Instructions Interventions: ED Discharge Assessment Last Done: 01/09/23 04:17
[2023-01-08 23:54] LABS: Magnesium 1.7 mg/dl (1.7-2.4)
[2023-01-09 00:07] LABS: Lyme Ab IgG w/WB Rflx Negative (Negative)
[2023-01-09 00:14] LABS: Lyme Ab IgM w/WB Rflx Equivocal (Negative)
[2023-01-09] MEDS ORDERED: traMADol HCL 50 MG TABLET PO STA (00:17)
[2023-01-09] MEDS ORDERED: GABAPENTIN 100 MG CAP PO STA (00:23)
[2023-01-09] MEDS ORDERED: PANTOprazole 40 MG TAB PO STA (00:23)
[2023-01-09] MEDS ORDERED: lisinopril 2.5 MG TAB PO ONE ×2 (00:23→06:50)
[2023-01-09] MEDS ORDERED: rOPINIRole HCL 1 MG TABLET PO STA (00:23)
[2023-01-09] MEDS ORDERED: ESCITALOPRAM OXALATE 10 MG TAB PO STA (00:23)
[2023-01-09] MEDS ORDERED: OPTIRAY 320 500ml IV ONE (01:22)
[2023-01-09] MEDS ORDERED: ONDANSETRON 4 MG OD TAB PO STA (01:34)
[2023-01-09] MEDS ORDERED: DICLOFENAC SOD 1% GEL 100 GM TUBE EXT PRN (01:36)
[2023-01-09] MEDS ORDERED: SODIUM CHLORIDE 0.9% 1000ML 1,000 ML IV ONE (01:37)
--- NOTE | 2023-01-09 01:41 | CT Scan Report ---
Exam(s): CTA CHEST W/WO Contrast IV Amt: 114 cc's EXAM: CT Angiography Chest Without and With Intravenous Contrast CLINICAL HISTORY: Reason for exam: cp, back pain. TECHNIQUE: Axial computed tomographic angiography images of the chest without and with intravenous contrast. CTDI is 33.81 mGy and DLP is 476.6 mGy-cm. Automated exposure control was utilized for the study. A dose lowering technique was utilized adhering to the principles of ALARA. MIP reconstructed images were created and reviewed. CONTRAST: Patient received 114 cc's of IV contrast COMPARISON: 09/19/22 FINDINGS: Pulmonary arteries: Unremarkable. No pulmonary embolism. Aorta: There is diffuse atherosclerotic calcification of the aorta and its major branch vessels. No thoracic aortic aneurysm. Lungs: Unremarkable. No mass. No consolidation. Pleural space: Unremarkable. No significant effusion. No pneumothorax. Heart: Mild cardiomegaly. Coronary artery calcifications. No significant pericardial effusion. No evidence of RV dysfunction. Mediastinum: Small hiatal hernia. Bones/joints: No acute fracture. No dislocation. Soft tissues: Unremarkable. Lymph nodes: Unremarkable. No enlarged lymph nodes. Gallbladder and bile ducts: Status post cholecystectomy. 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 IMPRESSION: No acute findings in the visualized arteries of the chest. Electronically signed by: Sancho Stringer MD 01/09/23 01:40 AM
[2023-01-09] MEDS ORDERED: APIXABAN 5 MG TABLET PO STA (01:49)
--- NOTE | 2023-01-09 01:55 | History & Physical Report ---
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 Eliquis Full code Patient son requesting updates from providers. Mr. Jason Gutiérrez, contact #[phone]. Text document was generated using [employer] voice recognition software. It may contain grammatical or spelling errors. Kindly contact undersigned for clarification of any documentation item in question. History of Present Illness Chief Complaint: Chest pain Primary Care Provider: Dr. Vika Castellanos History obtained from patient, family, and records. 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 Last confinement June 2022 for recurrent pulmonary embolism with right heart strain. Patient discharged on Eliquis. Patient noted to be weaker than usual yesterday. Just lying in bed. Tired all day. Not sure about recent tick bites at home. Patient later noted pleuritic chest pain going to her back with some shortness of breath. Different from other chest pain attacks in the past as per patient. Some neck pain. No headache as per patient. Patient brought to the ER for evaluation. Highest SBP of 180s noted at the ER. No relief with nitropaste administered at the ER. Achy headache symptoms from Nitropaste. 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 Allergies Allergy/AdvReac Type Severity Reaction Status Date / Time cyclobenzaprine Allergy Severe ANAPHYLAXIS Verified 06/23/22 16:04 Sulfa (Sulfonamide Allergy Severe Shortness Verified 06/23/22 16:04 Antibiotics) of Breath, Rash nitroglycerin AdvReac Mild Headache Verified 01/09/23 02:53 tolterodine AdvReac Mild DRY MOUTH Verified 06/23/22 16:04 Home Medications Medication Instructions Recorded Confirmed Type carbidopa 25 mg-levodopa 100 mg 1 tab PO TID 03/02/19 06/23/22 History tablet escitalopram oxalate 10 mg tablet 10 mg PO HS 03/02/19 06/23/22 History levothyroxine 50 mcg tablet 50 mcg PO QAM 03/02/19 06/23/22 History lorazepam 1 mg tablet 1 - 2 mg PO UD PRN Anxiety/Insomnia 03/02/19 06/23/22 History montelukast 10 mg tablet 10 mg PO QAM 03/02/19 06/23/22 History omeprazole 40 mg capsule,delayed 40 mg PO HS 03/02/19 06/23/22 History release ropinirole 1 mg tablet 1 mg PO HS 03/02/19 06/23/22 History ondansetron HCl 4 mg tablet 4 mg PO BID 10/14/20 06/23/22 History gabapentin 300 mg capsule 300 mg PO HS 10/15/20 06/23/22 History potassium chloride 10 mEq 10 meq PO QAM 05/12/21 06/23/22 History tablet,extended release(part/cryst) (Klor-Con M) diphenhydramine 25 2 tab PO HS PRN Pain 06/23/22 06/23/22 History mg-acetaminophen 500 mg tablet (Tylenol PM Extra Strength) apixaban 5 mg tablet (Eliquis) 5 mg PO BID 01/09/23 History Past Med/Surg History Medical History Cerebral vascular disease GERD (gastroesophageal reflux disease) Hyperlipidemia Hypothyroidism Lung nodule Mitral valve prolapse No significant family history Parkinson disease Thoracic radiculopathy Surgical History Previous back surgery S/P cholecystectomy S/P cholecystectomy S/P hysterectomy S/P hysterectomy Status post arthroscopy of shoulder Family History Other Heart disease Parkinson disease Social History Smoking Status: Former smoker Second Hand Exposure: No; Hx Alcohol Use: No Hx Substance Use: No Preferred Language: Albanian Communication Ability: Effective Sport Internship Required: No Beliefs That Will Affect Care: None marital status: / Current Living Situation: Family Current Living Situation Comment: Grandson lives w/ patient. Son lives across the street. Feels Safe at Home: Yes Assistive Devices: Cane Review of Systems Review of Systems: As per HPI, all other systems reviewed and negative Physical Exam Physical Exam: GENERAL: Comfortable, slightly anxious, slightly hard of hearing, no respiratory distress SKIN: Pallor, warm HEENT: Pale palpebral conjunctivae, no ptosis, dry buccal mucosa NECK : Supple, no tenderness CHEST : Decreased breath sounds, anterior chest wall tenderness, no tenderness HEART : RRR, no obvious murmurs ABDOMEN: Some distention, nontender EXTREMITIES : No LE swelling/tenderness, no other conspicuous deformities noted NEUROLOGIC : Coherent, no facial asymmetry, mild hearing impairment, gait and stance not assessed Results & Data Results & Data Vital Signs (Past 12 Hours) Vital Signs Temp Pulse Resp BP Pulse Ox O2 Del Method 01/08/23 23:21 90 01/08/23 23:21 85 16 175/109 H 99 01/08/23 20:11 99 Room Air 01/08/23 20:07 37 C 83 20 160/102 H 96 Room Air Laboratory Results Laboratory Results WBC 4.78 K/ul (4.8-10.8) L 01/08/23 20:17 RBC 3.99 M/uL (4.20-5.40) L 01/08/23 20:17 Hgb 11.8 g/dl (12.0-16.0) L 01/08/23 20:17 Hct 37.3 % (37.0-47.0) 01/08/23 20:17 MCV 93.5 fL (80.0-100.0) 01/08/23 20:17 MCH 29.6 pg (25.0-34.0) 01/08/23 20:17 MCHC 31.6 g/dL (32.0-36.0) L 01/08/23 20:17 RDW Std Deviation 48.7 fL (36.4-46.3) H 01/08/23 20:17 RDW Coeff of Arturo 14.1 % (11.5-14.5) 01/08/23 20:17 Plt Count 264 K/uL (130-400) 01/08/23 20:17 MPV 8.8 fL (9.4-12.4) L 01/08/23 20:17 Immature Gran % (Auto) 0.2 % 01/08/23 20:17 Neut % (Auto) 39.8 % 01/08/23 20:17 Lymph % (Auto) 50.0 % 01/08/23 20:17 [place] % (Auto) 7.5 % 01/08/23 20:17 Eos % (Auto) 1.9 % 01/08/23 20:17 Baso % (Auto) 0.6 % 01/08/23 20:17 Neut # (Auto) 1.90 K/uL (1.40-6.50) 01/08/23 20:17 Lymph # (Auto) 2.39 K/uL (1.2-3.4) 01/08/23 20:17 [place] # (Auto) 0.36 K/uL (0.11-0.59) 01/08/23 20:17 Eos # (Auto) 0.09 K/uL (0-0.50) 01/08/23 20:17 Baso # (Auto) 0.03 K/uL (0-0.2) 01/08/23 20:17 Immature Gran # (Auto) 0.01 K/uL (0.01-0.20) 01/08/23 20:17 PT 10.6 Seconds (9.0-12.0) 01/08/23 20:17 INR 1.0 (0.9-1.1) 01/08/23 20:17 APTT 28.2 Seconds (21.0-31.0) 01/08/23 20:17 PTT Ratio 1.0 01/08/23 20:17 Sodium 139 mmol/L (136-145) 01/08/23 20:17 Potassium 3.8 mmol/L (3.5-5.1) 01/08/23 20:17 Chloride 108 mmol/L (98-107) H 01/08/23 20:17 Carbon Dioxide 25 mmol/L (21-32) 01/08/23 20:17 Anion Gap 6 (3-11) 01/08/23 20:17 BUN 13 mg/dl (6-23) 01/08/23 20:17 Creatinine 0.93 mg/dl (0.6-1.2) 01/08/23 20:17 Est Cr Clr Drug Dosing 35.6 ml/min 01/08/23 20:17 Est GFR ( Amer) 66.3 ml/min 01/08/23 20:17 Est GFR (Non-Af Amer) 57.2 ml/min 01/08/23 20:17 BUN/Creatinine Ratio 14.0 (10-20) 01/08/23 20:17 Glucose 86 mg/dl (70-99(Fasting)) 01/08/23 20:17 Calcium 9.0 mg/dl (8.6-10.3) 01/08/23 20:17 Magnesium 1.7 mg/dl (1.7-2.4) 01/08/23 20:17 Total Bilirubin 0.4 mg/dl (0.2-1.0) 01/08/23 20:17 AST 9 U/L (13-39) L 01/08/23 20:17 ALT < 3 U/L (7-52) L 01/08/23 20:17 Alkaline Phosphatase 67 U/L (34-104) 01/08/23 20:17 Troponin I High Sens 4.8 pg/ml (0-14) 01/08/23 20:17 Total Protein 7.1 gm/dl (6.0-8.3) 01/08/23 20:17 Albumin 4.4 gm/dl (3.4-5.0) 01/08/23 20:17 Globulin 2.7 gm/dl (2.5-4.0) 01/08/23 20:17 Albumin/Globulin Ratio 1.6 (0.9-2) 01/08/23 20:17 TSH 0.778 uIu/ml (0.300-4.500) 01/08/23 20:18 Lyme Disease IgG Ab Negative (Negative) 01/08/23 20:18 Lyme Disease IgM Ab Equivocal (Negative) A 01/08/23 20:18 SARS-CoV-2 (PCR) NEGATIVE (Negative) 01/08/23 20:18 Influenza Type A (PCR) Negative (Neg) 01/08/23 20:18 Influenza Type B (PCR) Negative (Neg) 03/25/23 20:18 RSV (RT-PCR) Negative (Neg) 01/08/23 20:18 Impressions Chest CTA 01/09/23 00:16 Exam(s): CTA CHEST W/WO Contrast IV Amt: 114 cc's EXAM: CT Angiography Chest Without and With Intravenous Contrast CLINICAL HISTORY: Reason for exam: cp, back pain. TECHNIQUE: Axial computed tomographic angiography images of the chest without and with intravenous contrast. CTDI is 33.81 mGy and DLP is 476.6 mGy-cm. Automated exposure control was utilized for the study. A dose lowering technique was utilized adhering to the principles of ALARA. MIP reconstructed images were created and reviewed. CONTRAST: Patient received 114 cc's of IV contrast COMPARISON: 09/19/22 FINDINGS: Pulmonary arteries: Unremarkable. No pulmonary embolism. Aorta: There is diffuse atherosclerotic calcification of the aorta and its major branch vessels. No thoracic aortic aneurysm. Lungs: Unremarkable. No mass. No consolidation. Pleural space: Unremarkable. No significant effusion. No pneumothorax. Heart: Mild cardiomegaly. Coronary artery calcifications. No significant pericardial effusion. No evidence of RV dysfunction. Mediastinum: Small hiatal hernia. Bones/joints: No acute fracture. No dislocation. Soft tissues: Unremarkable. Lymph nodes: Unremarkable. No enlarged lymph nodes. Gallbladder and bile ducts: Status post cholecystectomy. 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 IMPRESSION: No acute findings in the visualized arteries of the chest. Electronically signed by: Sancho Stringer MD 01/09/23 01:40 AM Diagnostic Findings EKG as per my interpretation : Rate 80, NSR, normal axis, inferior infarct, T wave abnormalities inferior leads Code Status & VTE Plan VTE Prophylaxis Plan VTE Prophylaxis will be ordered: Yes
[2023-01-09] MEDS ORDERED: cefTRIAXone SODIUM 2,000 MG/70 ML BAG IV ONE (03:00)
[2023-01-09] MEDS ORDERED: ACETAMINOPHEN 325 MG TAB PO PRN (04:54)
[2023-01-09] MEDS ORDERED: PROMETHAZINE HCL 6.25 MG in SODIUM CHLORIDE 0.9% 50 ML IV PRN (04:54)
[2023-01-09] MEDS: LEVOTHYROXINE SODIUM 50 MCG TABLET PO SCH (06:08)
[2023-01-09] MEDS: ONDANSETRON 4 MG OD TAB PO SCH ×2 (08:35→20:37)
[2023-01-09] MEDS: APIXABAN 5 MG TABLET PO SCH ×2 (08:36→20:37)
[2023-01-09] MEDS: MONTELUKAST SODIUM 10 MG TABLET PO SCH (08:36)
[2023-01-09] MEDS: CARBIDOPA/LEVODOPA 25/100MG TAB PO SCH ×3 (08:36→20:36)
--- NOTE | 2023-01-09 10:06 | XRay Report ---
XR chest 1V not portable CLINICAL HISTORY: Chest pain, nonspecific TECHNIQUE: Single frontal radiograph of the chest was obtained. Comparison: Comparison is made to chest radiograph 09/19/2022 FINDINGS: No lines and tubes are seen. Cardiomegaly is noted. The lungs are clear. No evidence of pleural effus ion or pneumothorax. IMPRESSION: No acute chest disease. ACT 112: Negative or not required by law. Electronically signed by: Minesh Shine M.D. 01/09/2023 10:04 AM
[2023-01-09] MEDS: LORazepam 0.5 MG TAB PO PRN ×2 (11:18→20:36)
--- NOTE | 2023-01-09 13:37 | Electrocardiogram Report ---
Test Reason : Blood Pressure : / mmHG Vent. Rate : 079 BPM Atrial Rate : 079 BPM P-R Int : 184 ms QRS Dur : 086 ms QT Int : 396 ms P-R-T Axes : 035 026 -15 degrees QTc Int : 454 ms Normal sinus rhythm Cannot rule out Inferior infarct , age undetermined Nonspecific T wave abnormality Abnormal ECG When compared with ECG of 19-SEP-2022 20:17, Minimal criteria for Inferior infarct are now Present T wave inversion now evident in Inferior leads Confirmed by Judson Webb ([id number]) on 01/09/2023 1:36:50 PM Referred By: Tracey Vides Confirmed By:Judson Webb
--- NOTE | 2023-01-09 14:25 | Hospitalist Progress Note ---
Date of Service January 09, 2023 Assessment & Plan (1) Chest pain: Plan: Atypical Chest Pain Reproducible on palpation -DD: Secondary to musculoskeletal, anxiety, uncontrolled blood pressure, dysphagia Patient denies any recent fall/trauma -CTA:No acute findings in the visualized arteries of the chest. -Normal ESR, CRP, TSH Normal troponin EKG showed normal sinus rhythm, T wave changes in inferior leads ECHO pending On escitalopram, Gabapentin and Ativan as needed for anxiety Continue PPI Aspiration precautions Extra moist, slippery diet as recommended by recent speech therapy evaluation Started on lisinopril for better blood pressure control Monitor BP Suspected Lyme's Disease Lyme serology pending Empirically started on ceftriaxone H/O CVA/PVD Hyperlipidemia H/O Intolerance to Aggrenox Parkinson's disease Continue home meds Hypothyroidism Continue Levothyroxine Restless leg syndrome Continue Requip DVT Px: Eliquis Code Status Full code Admission and Anticipated Discharge Date Admission Date: January 09, 2023 Subjective Patient is seen and examined at bedside States having intermittent chest pain Also reports associated anxiety, dysphagia and dyspnea on exertion Has chronic nausea No other complaints Review of Systems Review of Systems: All systems reviewed & are unremarkable except as noted in Subjective Physical Exam Physical Exam: Physical Exam: Vitals signs as noted above General Appearance: Moderately built and nourished, elderly, No apparent distress Head: normocephalic, Atraumatic Eyes: normal inspection, EOMI Neck: supple, Trachea midline Respiratory/Chest: Normal breath sounds, CTA, No accessory muscle use Cardiovascular: S1, S2, No murmur,+ reproducible chest pain Abdomen/GI:Soft, Non tender, Bowel sounds present Extremities/Musculoskeletal:normal inspection, no edema Neurologic/Psych:AAO, grossly no focal neurological deficits,+Tremor Skin: normal color, warm Results & Data Results & Data Vital Signs (Past 12 Hours) Vital Signs Temp Pulse Pulse Resp BP BP Pulse Ox 01/09/23 11:20 36.9 C 101 H 20 159/83 H 94 01/09/23 08:17 36.6 C 83 18 151/84 H 96 01/09/23 05:32 36.3 C L 16 205/77 H 97 01/09/23 04:50 81 01/09/23 04:10 81 20 94 01/09/23 04:00 77 22 92 01/09/23 03:53 105 H 01/09/23 03:40 78 20 93 03/26/23 03:30 80 21 91 01/09/23 03:30 162/95 H 01/09/23 03:20 80 18 91 01/09/23 03:10 87 23 94 01/09/23 03:00 80 19 91 01/09/23 03:00 150/96 H 01/09/23 02:50 79 19 92 01/09/23 02:40 87 16 01/09/23 02:30 85 20 93 01/09/23 02:30 167/88 H 01/09/23 02:20 81 20 94 O2 Del Method 01/09/23 11:20 Room Air 01/09/23 08:17 Room Air 01/09/23 05:32 Room Air 01/09/23 04:50 01/09/23 04:10 01/09/23 04:00 01/09/23 03:53 01/09/23 03:40 01/09/23 03:30 01/09/23 03:30 01/09/23 03:20 01/09/23 03:10 01/09/23 03:00 01/09/23 03:00 01/09/23 02:50 01/09/23 02:40 01/09/23 02:30 01/09/23 02:30 01/09/23 02:20 Laboratory Results Short CBC 01/08/23 Range/Units 20:17 WBC 4.78 L (4.8-10.8) K/ul Hgb 11.8 L (12.0-16.0) g/dl Hct 37.3 (37.0-47.0) % Plt Count 264 (130-400) K/uL BMP 01/08/23 20:17 Sodium 139 Potassium 3.8 Chloride 108 H Carbon Dioxide 25 BUN 13 Creatinine 0.93 Glucose 86 Calcium 9.0 Liver Function 01/08/23 Range/Units 20:17 Total Bilirubin 0.4 (0.2-1.0) mg/dl AST 9 L (13-39) U/L ALT < 3 L (7-52) U/L Alkaline Phosphatase 67 (34-104) U/L Albumin 4.4 (3.4-5.0) gm/dl
[2023-01-09] MEDS: traMADol HCL 50 MG TABLET PO PRN (20:35)
[2023-01-09] MEDS: GABAPENTIN 300 MG CAP PO SCH (20:36)
[2023-01-09] MEDS: PANTOprazole 40 MG TAB PO SCH (20:36)
[2023-01-09] MEDS: ESCITALOPRAM OXALATE 10 MG TAB PO SCH (20:36)
[2023-01-09] MEDS: rOPINIRole HCL 1 MG TABLET PO SCH (20:36)
[2023-01-09] MEDS ORDERED: lisinopril 2.5 MG TAB PO SCH (21:00)
[2023-01-10] MEDS: cefTRIAXone SODIUM 2,000 MG in DEXTROSE 5% 50 ML IV SCH (02:11)
[2023-01-10] MEDS: LEVOTHYROXINE SODIUM 50 MCG TABLET PO SCH (06:14)
[2023-01-10 07:50] LABS: Basophils # (auto) 0.05 K/uL (0-0.2); Basophils % (auto) 1.2 %; Eosinophils # (auto) 0.16 K/uL (0-0.50); Eosinophils % (auto) 3.9 %; Hematocrit (blood only) 32.8 % (37.0-47.0); Hemoglobin 10.4 g/dl (12.0-16.0); Immature Granulocytes # (auto) 0.01 K/uL (0.01-0.20); Immature Granulocytes % (auto) 0.2 %; Lymphocytes # (auto) 1.35 K/uL (1.2-3.4); Mean Corpuscular Hemoglobin 29.2 pg (25.0-34.0); Mean Corpuscular Hgb Conc 31.7 g/dL (32.0-36.0); Mean Corpuscular Volume 92.1 fL (80.0-100.0); Mean Platelet Volume 8.8 fL (9.4-12.4); Monocytes # (auto) 0.39 K/uL (0.11-0.59); Monocytes % (auto) 9.5 %; Neutrophils # (auto) 2.13 K/uL (1.40-6.50); Neutrophils % (auto) 52.2 %; Platelet Count 220 K/uL (130-400); RDW Coefficient of Variation 14.1 % (11.5-14.5); RDW Standard Deviation 47.9 fL (36.4-46.3); Red Blood Count 3.56 M/uL (4.20-5.40); White Blood Count 4.09 K/ul (4.8-10.8)
[2023-01-10] MEDS: CARBIDOPA/LEVODOPA 25/100MG TAB PO SCH ×3 (08:10→20:36)
[2023-01-10] MEDS: APIXABAN 5 MG TABLET PO SCH ×2 (08:10→20:36)
[2023-01-10] MEDS: ONDANSETRON 4 MG OD TAB PO SCH ×3 (08:10→20:35)
[2023-01-10] MEDS: MONTELUKAST SODIUM 10 MG TABLET PO SCH (08:11)
[2023-01-10 08:13] LABS: Calcium 8.5 mg/dl (8.6-10.3); Creatinine Clr Calc Pharmacy 43.7 ml/min; Est GFR (Non-African American) 74.2 ml/min; Potassium 3.8 mmol/L (3.5-5.1)
[2023-01-10] MEDS ORDERED: lisinopril 5 MG TAB PO SCH (09:00)
[2023-01-10] MEDS: traMADol HCL 50 MG TABLET PO PRN ×3 (14:14→23:55)
--- NOTE | 2023-01-10 17:56 | Hospitalist Progress Note ---
Date of Service January 10, 2023 Assessment & Plan (1) Chest pain: Plan: Atypical Chest Pain Reproducible on palpation -DD: Secondary to musculoskeletal, anxiety, uncontrolled blood pressure, dysphagia Patient denies any recent fall/trauma -CTA:No acute findings in the visualized arteries of the chest. -Normal ESR, CRP, TSH -Normal troponin EKG showed normal sinus rhythm, T wave changes in inferior leads -ECHO: Normal LV chamber size and wall thickness. Normal LV systolic function, EF 55 to 60%. No segmental left ventricular wall motion abnormality identified, diastolic dysfunction. Mild tricuspid regurgitation. Small, loculated p ericardial effusion anteriorly with significant stranding to suggest chronicity. On escitalopram, Gabapentin and Ativan as needed for anxiety Continue PPI Aspiration precautions Extra moist, slippery diet as recommended by recent speech therapy evaluation Started on lisinopril for better blood pressure control Will advised to follow-up with cardiology as outpatient Suspected Lyme's Disease Lyme serology pending Empirically started on ceftriaxone H/O CVA/PVD Hyperlipidemia H/O Intolerance to Aggrenox Parkinson's disease Continue home meds Hypothyroidism Continue Levothyroxine Restless leg syndrome Continue Requip DVT Px: Eliquis Code Status Full code Disposition PT OT prior to discharge Admission and Anticipated Discharge Date Admission Date: January 09, 2023 Subjective Patient is seen and examined at bedside States feeling much better today Chest pain-resolved Denies any nausea, vomiting, abdominal pain, dyspnea today Having OT eval during my encounter Eager to get discharged Review of Systems Review of Systems: All systems reviewed & are unremarkable except as noted in Subjective Physical Exam Physical Exam: Physical Exam: Vitals signs as noted above General Appearance: Moderately built and nourished, elderly, No apparent distress Head: normocephalic, Atraumatic Eyes: normal inspection, EOMI Neck: supple, Trachea midline Respiratory/Chest: Normal breath sounds, CTA, No accessory muscle use Cardiovascular: S1, S2, No murmur,+ reproducible chest pain Abdomen/GI:Soft, Non tender, Bowel sounds present Extremities/Musculoskeletal:normal inspection, no edema Neurologic/Psych:AAO, grossly no focal neurological deficits,+Tremor Skin: normal color, warm Results & Data Results & Data Vital Signs (Past 12 Hours) Vital Signs Temp Pulse Pulse Resp BP BP Pulse Ox 01/10/23 16:14 36.7 C 85 18 102/68 94 01/10/23 15:40 86 01/10/23 11:29 36.8 C 89 18 126/74 95 01/10/23 09:35 77 01/10/23 08:49 01/10/23 07:38 37.1 C 74 17 116/74 92 O2 Del Method 01/10/23 16:14 Room Air 01/10/23 15:40 01/10/23 11:29 Room Air 01/10/23 09:35 01/10/23 08:49 Room Air 01/10/23 07:38 Room Air Laboratory Results Short CBC 01/10/23 Range/Units 07:20 WBC 4.09 L (4.8-10.8) K/ul Hgb 10.4 L (12.0-16.0) g/dl Hct 32.8 L (37.0-47.0) % Plt Count 220 (130-400) K/uL BMP 01/10/23 07:20 Sodium 142 Potassium 3.8 Chloride 109 H Carbon Dioxide 26 BUN 9 Creatinine 0.75 Glucose 87 Calcium 8.5 L
[2023-01-10] MEDS: GABAPENTIN 300 MG CAP PO SCH (20:35)
[2023-01-10] MEDS: PANTOprazole 40 MG TAB PO SCH (20:35)
[2023-01-10] MEDS: rOPINIRole HCL 1 MG TABLET PO SCH (20:35)
[2023-01-10] MEDS: ESCITALOPRAM OXALATE 10 MG TAB PO SCH (20:36)
[2023-01-10] MEDS: LORazepam 0.5 MG TAB PO PRN (21:20)
[2023-01-10] MEDS ORDERED: NITROGLYCERIN SL 0.4 MG/TAB TAB SL STA (23:35)
[2023-01-10] MEDS ORDERED: NITROGLYCERIN SL 0.4 MG/TAB TAB ONE (23:39)
--- NOTE | 2023-01-10 23:59 | Hospitalist Progress Note ---
Date of Service January 10, 2023 Assessment & Plan Admission and Anticipated Discharge Date Admission Date: January 09, 2023 Results & Data Results & Data Vital Signs (Past 12 Hours) Vital Signs Temp Pulse Pulse Resp BP BP Pulse Ox 01/10/23 19:36 36.4 C L 83 18 113/75 94 01/10/23 16:14 36.7 C 85 18 102/68 94 01/10/23 15:40 86 O2 Del Method 01/10/23 19:36 Room Air 01/10/23 16:14 Room Air 01/10/23 15:40
[2023-01-11 00:17] LABS: Partial Thromboplastin Ratio 1.1; Partial Thromboplastin Time 31.2 Seconds (21.0-31.0)
--- NOTE | 2023-01-11 01:13 | CT Scan Report ---
Exam(s): CT HEAD Without Contrast EXAM: CT Head Without Intravenous Contrast CLINICAL HISTORY: Reason for exam: mckeon. TECHNIQUE: Axial computed tomography images of the head/brain without intravenous contrast. Automated exposure control was utilized for the study. A dose lowering technique was utilized adhering to the principles of ALARA. COMPARISON: No relevant prior studies available. FINDINGS: No acute intracranial hemorrhage. No midline shift or mass effect. The territorial pedroza-white matter differentiation is maintained throughout. Age-related cerebral volume loss. Periventricular and subcortical white matter hypoattenuation, consistent with chronic microangiopathy. The visualized orbits appear grossly unremarkable. The calvarium is intact. The visualized paranasal sinuses and mastoid air cells are grossly clear. IMPRESSION: No acute intracranial hemorrhage, midline shift, or mass effect. Electronically signed by: Duong Fuentes MD 01/11/23 01:12 AM
[2023-01-11] MEDS: cefTRIAXone SODIUM 2,000 MG in DEXTROSE 5% 50 ML IV SCH (01:17)
[2023-01-11] MEDS ORDERED: ASPIRIN 81 MG ECTAB PO SCH (02:05)
[2023-01-11] MEDS ORDERED: D5W AND LACTATED RINGERS 1,000 ML IV SCH (02:15)
[2023-01-11] MEDS: LEVOTHYROXINE SODIUM 50 MCG TABLET PO SCH (06:18)
--- NOTE | 2023-01-11 06:28 | Communication Note ---
Date of Service: January 11, 2023 Overnight developments patient Patient chest pain going to the back complaints around 11:30 PM last night as per RN. SBP 160s. Chest pain down to 6/10 after first dose of nitro as per RN. Patient complaining of headache symptoms since morning. EKG as per my interpretation: Rate 95, NSR, normal axis, T wave abnormalities lateral leads CT head: No acute intracranial hemorrhage, midline shift, or mass effect. AP Chest pain Secondary to uncontrolled hypertension Rule out ACS given nitro relief and patient risk factors Aspirin for CAD prevention until ACS ruled out Follow troponin Cardiology consult Re: Chest pain N.p.o. until patient seen by cardiology in anticipation of ischemic work-up. Hold Eliquis for patient's history of recurrent PE until patient seen by Cardiology.
[2023-01-11 07:08] LABS: Partial Thromboplastin Ratio 1.1; Partial Thromboplastin Time 28.9 Seconds (21.0-31.0)
[2023-01-11 07:45] LABS: Chol HDL Ratio 3.6 (0-5)
[2023-01-11 07:52] LABS: Troponin I High Sensitivity 4.3 pg/ml (0-14)
[2023-01-11] MEDS ORDERED: lisinopril 2.5 MG TAB PO SCH (09:00)
[2023-01-11] MEDS: CARBIDOPA/LEVODOPA 25/100MG TAB PO SCH ×2 (09:16→13:28)
[2023-01-11] MEDS: ONDANSETRON 4 MG OD TAB PO SCH (09:17)
[2023-01-11] MEDS: MONTELUKAST SODIUM 10 MG TABLET PO SCH (09:17)
--- NOTE | 2023-01-11 09:59 | Cardiology Consultation ---
Date of Consultation January 11, 2023 Assessment & Plan (1) Atypical chest pain: (2) Parkinson disease: (3) GERD (gastroesophageal reflux disease): (4) Pulmonary emboli: (5) Anxiety: Plan I believe it is unlikely that the patient's chest pain is cardiac related. I do not believe any additional cardiac testing is indicated. She has seen the GI service chronically in the past and I think she should be evaluated by them. No other recommendations at this time. History of Present Illness Attending Physician: Jayden Sun MD History of Present Illness This is an 82-year-old female with history of Parkinson's disease, recurrent pulmonary emboli, subclavian arterial stenosis, lumbar stenosis, depression, GERD, and hypothyroidism.She was admitted with atypical chest discomfort which is mostly centered in the right upper quadrant and epigastric area. She does follow with the GI service for chronic reflux. No shortness of breath.Despite having continuous chest pain for hours her cardiac markers are negative. EKG shows no acute changes.Lyme's titer was equivocal. Echocardiogram revealed a small anterior loculated pericardial effusion which is old. Her EKGs have nonspecific changes. Allergies Allergy/AdvReac Type Severity Reaction Status Date / Time cyclobenzaprine Allergy Severe ANAPHYLAXIS Verified 06/23/22 16:04 Sulfa (Sulfonamide Allergy Severe Shortness Verified 06/23/22 16:04 Antibiotics) of Breath, Rash nitroglycerin AdvReac Mild Headache Verified 01/09/23 02:53 tolterodine AdvReac Mild DRY MOUTH Verified 06/23/22 16:04 Home Medications Medication Instructions Recorded Confirmed Type carbidopa 25 mg-levodopa 100 mg 1 tab PO TID 03/02/19 06/23/22 History tablet escitalopram oxalate 10 mg tablet 10 mg PO HS 03/02/19 06/23/22 History levothyroxine 50 mcg tablet 50 mcg PO QAM 03/02/19 06/23/22 History lorazepam 1 mg tablet 1 - 2 mg PO UD PRN Anxiety/Insomnia 03/02/19 06/23/22 History montelukast 10 mg tablet 10 mg PO QAM 03/02/19 06/23/22 History omeprazole 40 mg capsule,delayed 40 mg PO HS 03/02/19 06/23/22 History release ropinirole 1 mg tablet 1 mg PO HS 03/02/19 06/23/22 History ondansetron HCl 4 mg tablet 4 mg PO BID 10/14/20 06/23/22 History gabapentin 300 mg capsule 300 mg PO HS 10/15/20 06/23/22 History potassium chloride 10 mEq 10 meq PO QAM 05/12/21 06/23/22 History tablet,extended release(part/cryst) (Klor-Con M) diphenhydramine 25 2 tab PO HS PRN Pain 06/23/22 06/23/22 History mg-acetaminophen 500 mg tablet (Tylenol PM Extra Strength) apixaban 5 mg tablet (Eliquis) 5 mg PO BID 01/09/23 History Patient History Medical History Cerebral vascular disease GERD (gastroesophageal reflux disease) Hyperlipidemia Hypothyroidism Lung nodule Mitral valve prolapse No significant family history Parkinson disease Thoracic radiculopathy Surgical History Previous back surgery S/P cholecystectomy S/P cholecystectomy S/P hysterectomy S/P hysterectomy Status post arthroscopy of shoulder Family History Other Heart disease Parkinson disease Social History Smoking Status: Former smoker Cigarettes Per Day: 1 ppd for 20yr quit in 1979; Second Hand Exposure: No; Hx Alcohol Use: No Hx Substance Use: No Preferred Language: Afghan Communication Ability: Effective Dye Machine Operator Required: No Beliefs That Will Affect Care: None marital status: / Current Living Situation: Alone Current Living Situation Comment: Grandson lives w/ patient. Son lives across the street. Feels Safe at Home: Yes Assistive Devices: Cane Review of Systems Review of Systems: Review of Systems: See HPI for pertinent positives. All other 10 point review of systems are negative. Physical Exam Physical Exam: General: no acute distress and stated age Head: normocephalic, no masses, lesions, tenderness or abnormalities Eyes: conjunctiva are pink and non-injected, sclera clear Neck: supple, no adenopathy, no bruits, normal jugular venous pulse, no hepatojugular reflux Chest: normal shape and normal respiratory effort Lungs: clear to auscultation and percussion Cardiac Exam: - regular rate & rhythm, no murmurs gallops or rubs - normal S1, normal S2 Pulses: 2(+) throughout Abdomen: abdomen soft, non-tender, no abnormal masses and no hepatosplenomegaly Musculoskeletal: no gait disturbance, no joint inflammation, no deforming arthritis Extremities: no edema and no cyanosis Neuro: grossly normal exam Results & Data Vital Signs (Past 12 Hours) Vital Signs Temp Pulse Pulse Resp BP BP Pulse Ox 01/11/23 08:00 80 01/11/23 07:57 36.8 C 82 16 144/77 H 90 01/11/23 03:31 36.5 C 82 16 93/63 L 92 01/10/23 23:40 99 H 101/68 01/10/23 23:25 92 H 17 164/85 H 97 01/10/23 22:01 75 01/10/23 23:05 36.9 C 89 18 152/82 H 93 O2 Del Method 01/11/23 08:00 01/11/23 07:57 Room Air 01/11/23 03:31 Room Air 01/10/23 23:40 01/10/23 23:25 Room Air 01/10/23 22:01 01/10/23 23:05 Room Air Laboratory Results Laboratory Results - last 24 hr 01/10/23 01/10/23 01/11/23 23:43 23:43 06:10 APTT 31.2 H 28.9 PTT Ratio 1.1 1.1 Troponin I High Sens 5.0 Triglycerides Cholesterol LDL Cholesterol, Calc VLDL Cholesterol, Calc HDL Cholesterol Cholesterol/HDL Ratio 01/11/23 06:10 APTT PTT Ratio Troponin I High Sens 4.3 Triglycerides 104 Cholesterol 177 LDL Cholesterol, Calc 107 VLDL Cholesterol, Calc 21 HDL Cholesterol 49 Cholesterol/HDL Ratio 3.6 Medications Administered Current Inpatient Medications Acetaminophen (Acetaminophen 325 Mg Tab) 650 mg PO Q4H PRN PRN Reason: Pain or Fever Stop: 02/08/23 04:53 Apixaban (Apixaban 5 Mg Tablet) 5 mg PO BID [facility] Stop: 02/08/23 08:59 Last Admin: 01/10/23 20:36 Dose: 5 mg Aspirin (Aspirin 81 Mg Ectab) 81 mg PO QAM [facility] Stop: 02/10/23 02:04 Last Admin: 01/11/23 02:59 Dose: 81 mg Carbidopa/Levodopa (Carbidopa/Levodopa 25/100mg Tab) 1 tab PO TID [facility] Stop: 02/08/23 08:59 Last Admin: 01/11/23 09:16 Dose: 1 tab Diclofenac Sodium (Diclofenac Sod 1% Gel 100 Gm Tube) 2 gm EXT QID PRN; Protocol PRN Reason: joint pain Stop: 02/08/23 01:35 Escitalopram Oxalate (Escitalopram Oxalate 10 Mg Tab) 10 mg PO HS [facility] Stop: 02/08/23 20:59 Last Admin: 01/10/23 20:36 Dose: 10 mg Gabapentin (Gabapentin 300 Mg Cap) 300 mg PO HS [facility] Stop: 02/08/23 20:59 Last Admin: 01/10/23 20:35 Dose: 300 mg Ceftriaxone Sodium 2,000 mg/ (Dextrose) 70 mls @ 100 mls/hr IV Q24H [facility]; Protocol Stop: 01/20/23 01:59 Last Infusion: 01/11/23 01:59 Dose: Infused Promethazine HCl 6.25 mg/ (Sodium Chloride) 50.25 mls @ 201 mls/hr IV Q6H PRN PRN Reason: Nausea And Vomiting Stop: 02/08/23 04:53 Last Infusion: 01/11/23 00:18 Dose: Infused Dextrose/Lactated Ringer's (D5w And Lactated Ringers) 1,000 mls @ 50 mls/hr IV .Q20H [facility] Stop: 02/10/23 02:14 Last Admin: 01/11/23 02:51 Dose: 50 mls/hr Levothyroxine Sodium (Levothyroxine Sodium 50 Mcg Tablet) 50 mcg PO DAILYBB [facility] Stop: 02/08/23 06:29 Last Admin: 01/11/23 06:18 Dose: 50 mcg Lisinopril (Lisinopril 2.5 Mg Tab) 2.5 mg PO DAILY [facility] Stop: 02/10/23 08:59 Last Admin: 01/11/23 09:18 Dose: 2.5 mg Lorazepam (Lorazepam 0.5 Mg Tab) 0.5 mg PO BID PRN PRN Reason: Anxiety Stop: 02/08/23 00:22 Last Admin: 01/10/23 21:20 Dose: 0.5 mg Montelukast Sodium (Montelukast Sodium 10 Mg Tablet) 10 mg PO QAM [facility] Stop: 02/08/23 08:59 Last Admin: 01/11/23 09:17 Dose: 10 mg Ondansetron HCl (Ondansetron 4 Mg Od Tab) 4 mg PO BID [facility] Stop: 02/08/23 08:59 Last Admin: 01/11/23 09:17 Dose: 4 mg Pantoprazole Sodium (Pantoprazole 40 Mg Tab) 40 mg PO HS [facility] Stop: 02/08/23 20:59 Last Admin: 01/10/23 20:35 Dose: 40 mg Ropinirole HCl (Ropinirole Hcl 1 Mg Tablet) 1 mg PO HS [facility] Stop: 02/08/23 20:59 Last Admin: 01/10/23 20:35 Dose: 1 mg Tramadol HCl (Tramadol Hcl 50 Mg Tablet) 25 mg PO Q4H PRN PRN Reason: Pain Stop: 02/08/23 03:20 Last Admin: 01/10/23 23:55 Dose: 25 mg (4) Pulmonary emboli Acute cor pulmonale presence: with acute cor pulmonale Chronicity: acute Pulmonary embolism type: unspecified Qualified Code(s): I26.09 - Other pulmonary embolism with acute cor pulmonale
--- NOTE | 2023-01-11 10:50 | Gastrointestinal Consultation ---
Date of Consultation January 11, 2023 Assessment & Plan (1) GERD (gastroesophageal reflux disease): (2) Dysphagia: (3) Parkinson disease: (4) Gastroparesis: Plan 1. BID PPI - on DC, recommend omeprazole 20mg BID - ongoing. 2. Add Famotidine 40 mg QHS - take regularly. 3. May take OTC Maalox prn break through reflux. 4. Per recent OP speech path/VFSS recommendations: extra moist diet, aspiration precautions, chew thoroughly, eat slowly. 5. Pt has OP nutrition consult for gastroparesis diet teaching pending. 6. Continue OP GI follow up. Because EGD in 2021 w/o significant abnormalities (and similar symptoms) would defer repeat endoscopy at this time. Supervising Physician Co-Signing Physician Notes I performed a history and physical examination of the patient today, including specifically on physical exam - soft abdomen. I have discussed the patient's management with the advanced practitioner. Please refer to the nurse practitioner's note for the documented findings and plan of care. Maximize GERD therapy for now. F/U as OP in GI clinic. Recall GI if needed. History of Present Illness Reason for Consultation: GERD Requesting Physician: Dr. Mckeon Attending Physician: Jayden Sun MD History of Present Illness Ms. Sera Gutiérrez is an 82 yr old female pt of Vika Castellanos/DAV Gurrola w a hx of CVA/PVD, recurrent PE on Eliquis, HLD, Parkinson's, hypothyroidism, chronic anemia who presented for CP on 01/09. Seen by cardiology who did not feel the pain is of cardiac origin. GI is consulted for GERD. Pt has a hx of GERD and gastroparesis (not medicated), is maintained on Omeprazole 40mg daily QAM frequently feels liquids regurgitating up into the chest but typically without burning. She also reports that a few times a week, she feels foods getting stuck in the throat and upper chest area followed by involuntary regurgitation of that food. EGD in Nov 2021 was normal. Video swallow earlier this month w trace silent aspiration of thin barium, mild oropharyngeal dysphagia (increased mastication time and slowed transport time of textured foods) and esophageal dysmotility (no esophageal clearance of foods). Recommendations were for aspiration precautions, extra moist/easy to chew foods with thin liquids. Allergies Allergy/AdvReac Type Severity Reaction Status Date / Time cyclobenzaprine Allergy Severe ANAPHYLAXIS Verified 06/23/22 16:04 Sulfa (Sulfonamide Allergy Severe Shortness Verified 06/23/22 16:04 Antibiotics) of Breath, Rash nitroglycerin AdvReac Mild Headache Verified 01/09/23 02:53 tolterodine AdvReac Mild DRY MOUTH Verified 06/23/22 16:04 Home Medications Medication Instructions Recorded Confirmed Type carbidopa 25 mg-levodopa 100 mg 1 tab PO TID 03/02/19 06/23/22 History tablet escitalopram oxalate 10 mg tablet 10 mg PO HS 03/02/19 06/23/22 History levothyroxine 50 mcg tablet 50 mcg PO QAM 03/02/19 06/23/22 History lorazepam 1 mg tablet 1 - 2 mg PO UD PRN Anxiety/Insomnia 03/02/19 06/23/22 History montelukast 10 mg tablet 10 mg PO QAM 03/02/19 06/23/22 History omeprazole 40 mg capsule,delayed 40 mg PO HS 03/02/19 06/23/22 History release ropinirole 1 mg tablet 1 mg PO HS 03/02/19 06/23/22 History ondansetron HCl 4 mg tablet 4 mg PO BID 10/14/20 06/23/22 History gabapentin 300 mg capsule 300 mg PO HS 10/15/20 06/23/22 History potassium chloride 10 mEq 10 meq PO QAM 05/12/21 06/23/22 History tablet,extended release(part/cryst) (Klor-Con M) diphenhydramine 25 2 tab PO HS PRN Pain 06/23/22 06/23/22 History mg-acetaminophen 500 mg tablet (Tylenol PM Extra Strength) apixaban 5 mg tablet (Eliquis) 5 mg PO BID 01/09/23 History Patient History Medical History Cerebral vascular disease GERD (gastroesophageal reflux disease) Hyperlipidemia Hypothyroidism Lung nodule Mitral valve prolapse No significant family history Parkinson disease Thoracic radiculopathy Surgical History Previous back surgery S/P cholecystectomy S/P cholecystectomy S/P hysterectomy S/P hysterectomy Status post arthroscopy of shoulder Family History Other Heart disease Parkinson disease Social History Smoking Status: Former smoker Cigarettes Per Day: 1 ppd for 20yr quit in 1979; Second Hand Exposure: No; Hx Alcohol Use: No Hx Substance Use: No Preferred Language: Trinidadian Communication Ability: Effective Lead Massage Therapist Required: No Beliefs That Will Affect Care: None marital status: / Current Living Situation: Alone Current Living Situation Comment: Grandson lives w/ patient. Son lives across the street. Feels Safe at Home: Yes Assistive Devices: Cane Review of Systems Review of Systems: ROS: Gen: Denies weakness, fevers, weight loss Eyes: No eye redness, or pain, no recent vision changes Resp: No SOB, no cough Cardio: +CP GI: As per HPI, otherwise normal. : Denies pain on urination Skin: No jaundice, itching or new rashes Ext: No edema Physical Exam Constitutional: WD/WN, vitals as above Eyes: PERRL, conjunctivae normal, anicteric sclerae ENMT: external ear and nose normal, oropharynx normal Neck: trachea midline, no thyromegaly Respiratory: normal respiratory effort, lungs clear to auscultation Cardiovascular: RRR, no murmur, no edema Gastrointestinal (Abdomen): normal bowel sounds, soft, nontender, no hepatosplenomegaly Musculoskeletal: no cyanosis or clubbing, extremities motor strength 5/5 Skin: no rashes, warm and dry Neurologic: PERRL, EOMI, accommodation nl, no face palsy, no dysarthria Psychiatric: A+Ox3, euthymic affect Lymphatic: no cervical or axillary lymphadenopathy Results & Data Vital Signs (Past 12 Hours) Vital Signs Temp Pulse Pulse Resp BP BP Pulse Ox 01/11/23 08:00 80 01/11/23 07:57 36.8 C 82 16 144/77 H 90 01/11/23 03:31 36.5 C 82 16 93/63 L 92 01/10/23 23:40 99 H 101/68 01/10/23 23:25 92 H 17 164/85 H 97 01/10/23 23:05 36.9 C 89 18 152/82 H 93 O2 Del Method 01/11/23 08:00 01/11/23 07:57 Room Air 01/11/23 03:31 Room Air 01/10/23 23:40 01/10/23 23:25 Room Air 01/10/23 23:05 Room Air Laboratory Results WBC 4.09, Hb 10.4, Hct 32.8, plts 220, PT 31.2, INR 1.1, Na 142, K 3.8, Cl 109, Co2 26, BUN 9, Cr 0.75, glucose 87. Diagnostic Findings CXR and CTA chest 01/08 and 01/09 no acute changes.
--- NOTE | 2023-01-11 13:05 | Electrocardiogram Report ---
Test Reason : Blood Pressure : / mmHG Vent. Rate : 097 BPM Atrial Rate : 097 BPM P-R Int : 198 ms QRS Dur : 088 ms QT Int : 390 ms P-R-T Axes : 078 054 056 degrees QTc Int : 495 ms Normal sinus rhythm Nonspecific T wave abnormality Prolonged QT Abnormal ECG When compared with ECG of 08-JAN-2023 20:13, No significant change was found Confirmed by Judson Webb ([id number]) on 01/11/2023 1:05:14 PM Referred By: Tracey Vides Confirmed By:Judson Webb
[2023-01-11] MEDS ORDERED: PANTOprazole 40 MG TAB PO SCH (13:15)
--- NOTE | 2023-01-11 14:25 | Hospitalist Progress Note ---
Date of Service January 11, 2023 Assessment & Plan (1) Chest pain: Plan: Atypical Chest Pain Reproducible on palpation ? due to dysphagia -DD: Secondary to musculoskeletal, anxiety, uncontrolled blood pressure, dysphagia Patient denies any recent fall/trauma -CTA:No acute findings in the visualized arteries of the chest. -Normal ESR, CRP, TSH -Normal troponin EKG showed normal sinus rhythm, T wave changes in inferior leads -ECHO: Normal LV chamber size and wall thickness. Normal LV systolic function, EF 55 to 60%. No segmental left ventricular wall motion abnormality identified, diastolic dysfunction. Mild tricuspid regurgitation. Small, loculated pericardial effusion anteriorly with significant stranding to suggest chronicity. On escitalopram, Gabapentin and Ativan as needed for anxiety Continue PPI>>increased to BID, added Pepcid HS Aspiration precautions Extra moist, slippery diet as recommended by recent speech therapy evaluation, Gastroparesis diet Started on lisinopril 2.5 mg for better blood pressure control Appreciate cardiology, GI input Needs follow-up with GI upon discharge Suspected Lyme's Disease Lyme serology pending Empirically started on ceftriaxone Advised to follow up with PCP for results upon discharge H/O CVA/PVD Hyperlipidemia H/O Intolerance to Aggrenox Parkinson's disease Continue home meds Hypothyroidism Continue Levothyroxine Restless leg syndrome Continue Requip DVT Px: Eliquis Code Status Full code Disposition Home Admission and Anticipated Discharge Date Admission Date: January 09, 2023 Subjective Patient is seen and examined at bedside States having chest pain, headache overnight which currently resolved States feeling well today Offers no complaints Prefers to be discharged home Denies any dyspnea, dizziness, nausea, abdominal pain No other complaints Review of Systems Review of Systems: All systems reviewed & are unremarkable except as noted in Subjective Physical Exam Physical Exam: Physical Exam: Vitals signs as noted above General Appearance: Moderately built and nourished, elderly, No apparent distress Head: normocephalic, Atraumatic Eyes: normal inspection, EOMI Neck: supple, Trachea midline Respiratory/Chest: Normal breath sounds, CTA, No accessory muscle use Cardiovascular: S1, S2, No murmur,+ reproducible chest pain Abdomen/GI:Soft, Non tender, Bowel sounds present Extremities/Musculoskeletal:normal inspection, no edema Neurologic/Psych:AAO, grossly no focal neurological deficits,+Tremor Skin: normal color, warm Results & Data Results & Data Vital Signs (Past 12 Hours) Vital Signs Temp Pulse Pulse Resp BP BP Pulse Ox 01/11/23 11:46 36.6 C 76 16 123/54 L 91 01/11/23 08:00 80 01/11/23 07:57 36.8 C 82 16 144/77 H 90 01/11/23 03:31 36.5 C 82 16 93/63 L 92 O2 Del Method 01/11/23 11:46 Room Air 01/11/23 08:00 01/11/23 07:57 Room Air 01/11/23 03:31 Room Air
--- NOTE | 2023-01-11 14:46 | Discharge Summary ---
Date of Service January 11, 2023 Admission HPI Per Admitting Provider History obtained from patient, family, and records. 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 Last confinement June 2022 for recurrent pulmonary embolism with right heart strain. Patient discharged on Eliquis. Patient noted to be weaker than usual yesterday. Just lying in bed. Tired all day. Not sure about recent tick bites at home. Patient later noted pleuritic chest pain going to her back with some shortness of breath. Different from other chest pain attacks in the past as per patient. Some neck pain. No headache as per patient. Patient brought to the ER for evaluation. Highest SBP of 180s noted at the ER. No relief with nitropaste administered at the ER. Achy headache symptoms from Nitropaste. 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 Admission Exam Per Admitting Provider GENERAL: Comfortable, slightly anxious, slightly hard of hearing, no respiratory distress SKIN: Pallor, warm HEENT: Pale palpebral conjunctivae, no ptosis, dry buccal mucosa NECK : Supple, no tenderness CHEST : Decreased breath sounds, anterior chest wall tenderness, no tenderness HEART : RRR, no obvious murmurs ABDOMEN: Some distention, nontender EXTREMITIES : No LE swelling/tenderness, no other conspicuous deformities noted NEUROLOGIC : Coherent, no facial asymmetry, mild hearing impairment, gait and stance not assessed Principal Diagnosis Atypical Chest Pain Suspected Lyme's Disease Discharge Data Allergies Allergy/AdvReac Type Severity Reaction Status Date / Time cyclobenzaprine Allergy Severe ANAPHYLAXIS Verified 06/23/22 16:04 Sulfa (Sulfonamide Allergy Severe Shortness Verified 06/23/22 16:04 Antibiotics) of Breath, Rash nitroglycerin AdvReac Mild Headache Verified 01/09/23 02:53 tolterodine AdvReac Mild DRY MOUTH Verified 06/23/22 16:04 Consultations 01/08/23 23:17 ED Decision to Admit Stat 01/11/23 02:02 Consult Cardiology Routine 01/11/23 10:09 Consult Gastroenterology Routine Procedures Performed Laboratory Results WBC 4.09 K/ul (4.8-10.8) L 01/10/23 07:20 RBC 3.56 M/uL (4.20-5.40) L 01/10/23 07:20 Hgb 10.4 g/dl (12.0-16.0) L 01/10/23 07:20 Hct 32.8 % (37.0-47.0) L 01/10/23 07:20 MCV 92.1 fL (80.0-100.0) 01/10/23 07:20 MCH 29.2 pg (25.0-34.0) 01/10/23 07:20 MCHC 31.7 g/dL (32.0-36.0) L 01/10/23 07:20 RDW Std Deviation 47.9 fL (36.4-46.3) H 01/10/23 07:20 RDW Coeff of Arturo 14.1 % (11.5-14.5) 01/10/23 07:20 Plt Count 220 K/uL (130-400) 01/10/23 07:20 MPV 8.8 fL (9.4-12.4) L 01/10/23 07:20 Immature Gran % (Auto) 0.2 % 01/10/23 07:20 Neut % (Auto) 52.2 % 01/10/23 07:20 Lymph % (Auto) 33.0 % 01/10/23 07:20 Vermillion % (Auto) 9.5 % 01/10/23 07:20 Eos % (Auto) 3.9 % 01/10/23 07:20 Baso % (Auto) 1.2 % 01/10/23 07:20 Neut # (Auto) 2.13 K/uL (1.40-6.50) 01/10/23 07:20 Lymph # (Auto) 1.35 K/uL (1.2-3.4) 01/10/23 07:20 Vermillion # (Auto) 0.39 K/uL (0.11-0.59) 01/10/23 07:20 Eos # (Auto) 0.16 K/uL (0-0.50) 01/10/23 07:20 Baso # (Auto) 0.05 K/uL (0-0.2) 01/10/23 07:20 Immature Gran # (Auto) 0.01 K/uL (0.01-0.20) 01/10/23 07:20 ESR 8 mm/hr (0-30) 01/09/23 05:35 PT 10.6 Seconds (9.0-12.0) 01/08/23 20:17 INR 1.0 (0.9-1.1) 01/08/23 20:17 APTT 28.9 Seconds (21.0-31.0) 01/11/23 06:10 PTT Ratio 1.1 01/11/23 06:10 Sodium 142 mmol/L (136-145) 01/10/23 07:20 Potassium 3.8 mmol/L (3.5-5.1) 01/10/23 07:20 Chloride 109 mmol/L (98-107) H 01/10/23 07:20 Carbon Dioxide 26 mmol/L (21-32) 01/10/23 07:20 Anion Gap 7 (3-11) 01/10/23 07:20 BUN 9 mg/dl (6-23) 01/10/23 07:20 Creatinine 0.75 mg/dl (0.6-1.2) 01/10/23 07:20 Est Cr Clr Drug Dosing 43.7 ml/min 01/10/23 07:20 Est GFR ( Amer) 86.0 ml/min 01/10/23 07:20 Est GFR (Non-Af Amer) 74.2 ml/min 01/10/23 07:20 BUN/Creatinine Ratio 12.0 (10-20) 01/10/23 07:20 Glucose 87 mg/dl (70-99(Fasting)) 01/10/23 07:20 Calcium 8.5 mg/dl (8.6-10.3) L 01/10/23 07:20 Magnesium 1.7 mg/dl (1.7-2.4) 01/08/23 20:17 Total Bilirubin 0.4 mg/dl (0.2-1.0) 01/08/23 20:17 AST 9 U/L (13-39) L 01/08/23 20:17 ALT < 3 U/L (7-52) L 01/08/23 20:17 Alkaline Phosphatase 67 U/L (34-104) 01/08/23 20:17 Troponin I High Sens 4.3 pg/ml (0-14) 01/11/23 06:10 C-Reactive Protein < 0.50 mg/dl (0-0.5) 01/09/23 05:35 Total Protein 7.1 gm/dl (6.0-8.3) 01/08/23 20:17 Albumin 4.4 gm/dl (3.4-5.0) 01/08/23 20:17 Globulin 2.7 gm/dl (2.5-4.0) 01/08/23 20:17 Albumin/Globulin Ratio 1.6 (0.9-2) 01/08/23 20:17 Triglycerides 104 mg/dl (0-150) 01/11/23 06:10 Cholesterol 177 mg/dl (0-200) 01/11/23 06:10 LDL Cholesterol, Calc 107 mg/dl 01/11/23 06:10 VLDL Cholesterol, Calc 21 mg/dl (0-30) 01/11/23 06:10 HDL Cholesterol 49 mg/dl 01/11/23 06:10 Cholesterol/HDL Ratio 3.6 (0-5) 01/11/23 06:10 TSH 0.778 uIu/ml (0.300-4.500) 01/08/23 20:18 Lyme Disease IgG Ab Negative (Negative) 01/08/23 20:18 Lyme Disease IgM Ab Equivocal (Negative) A 01/08/23 20:18 SARS-CoV-2 (PCR) NEGATIVE (Negative) 01/08/23 20:18 Influenza Type A (PCR) Negative (Neg) 01/08/23 20:18 Influenza Type B (PCR) Negative (Neg) 01/08/23 20:18 RSV (RT-PCR) Negative (Neg) 01/08/23 20:18 Impressions Chest X-Ray 01/08/23 20:11 XR chest 1V not portable CLINICAL HISTORY: Chest pain, nonspecific TECHNIQUE: Single frontal radiograph of the chest was obtained. Comparison: Comparison is made to chest radiograph 09/19/2022 FINDINGS: No lines and tubes are seen. Cardiomegaly is noted. The lungs are clear. No evidence of pleural effusion or pneumothorax. IMPRESSION: No acute chest disease. ACT 112: Negative or not required by law. Electronically signed by: Minesh Shine M.D. 01/09/2023 10:04 AM Chest CTA 01/09/23 00:16 Exam(s): CTA CHEST W/WO Contrast IV Amt: 114 cc's EXAM: CT Angiography Chest Without and With Intravenous Contrast CLINICAL HISTORY: Reason for exam: cp, back pain. TECHNIQUE: Axial computed tomographic angiography images of the chest without and with intravenous contrast. CTDI is 33.81 mGy and DLP is 476.6 mGy-cm. Automated exposure control was utilized for the study. A dose lowering technique was utilized adhering to the principles of ALARA. MIP reconstructed images were created and reviewed. CONTRAST: Patient received 114 cc's of IV contrast COMPARISON: 09/19/22 FINDINGS: Pulmonary arteries: Unremarkable. No pulmonary embolism. Aorta: There is diffuse atherosclerotic calcification of the aorta and its major branch vessels. No thoracic aortic aneurysm. Lungs: Unremarkable. No mass. No consolidation. Pleural space: Unremarkable. No significant effusion. No pneumothorax. Heart: Mild cardiomegaly. Coronary artery calcifications. No significant pericardial effusion. No evidence of RV dysfunction. Mediastinum: Small hiatal hernia. Bones/joints: No acute fracture. No dislocation. Soft tissues: Unremarkable. Lymph nodes: Unremarkable. No enlarged lymph nodes. Gallbladder and bile ducts: Status post cholecystectomy. 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 IMPRESSION: No acute findings in the visualized arteries of the chest. Electronically signed by: Sancho Stringer MD 01/09/23 01:[address] 01/11/23 00:41 Exam(s): CT HEAD Without Contrast EXAM: CT Head Without Intravenous Contrast CLINICAL HISTORY: Reason for exam: mckeon. TECHNIQUE: Axial computed tomography images of the head/brain without intravenous contrast. Automated exposure control was utilized for the study. A dose lowering technique was utilized adhering to the principles of ALARA. COMPARISON: No relevant prior studies available. FINDINGS: No acute intracranial hemorrhage. No midline shift or mass effect. The territorial pedroza-white matter differentiation is maintained throughout. Age-related cerebral volume loss. Periventricular and subcortical white matter hypoattenuation, consistent with chronic microangiopathy. The visualized orbits appear grossly unremarkable. The calvarium is intact. The visualized paranasal sinuses and mastoid air cells are grossly clear. IMPRESSION: No acute intracranial hemorrhage, midline shift, or mass effect. Electronically signed by: Duong Fuenets MD 01/11/23 01:12 AM Ordered Studies 01/09/23 00:16 CT angio chest dissec wo/w con Stat 01/11/23 00:41 CT head/brain wo con Stat Hospital Course (1) Chest pain: Atypical Chest Pain Reproducible on palpation ? due to dysphagia -DD: Secondary to musculoskeletal, anxiety, uncontrolled blood pressure, dysphagia Patient denies any recent fall/trauma -CTA:No acute findings in the visualized arteries of the chest. -Normal ESR, CRP, TSH -Normal troponin EKG showed normal sinus rhythm, T wave changes in inferior leads -ECHO: Normal LV chamber size and wall thickness. Normal LV systolic function, EF 55 to 60%. No segmental left ventricular wall motion abnormality identified, diastolic dysfunction. Mild tricuspid regurgitation. Small, loculated pericardial effusion anteriorly with significant stranding to suggest chronicity. On escitalopram, Gabapentin and Ativan as needed for anxiety Continue PPI>>increased to BID, added Pepcid HS Aspiration precautions Extra moist, slippery diet as recommended by recent speech therapy evaluation, Gastroparesis diet Started on lisinopril 2.5 mg for better blood pressure control Appreciate cardiology, GI input Needs follow-up with GI upon discharge Suspected Lyme's Disease Lyme serology pending Empirically started on ceftriaxone Advised to follow up with PCP for results upon discharge H/O CVA/PVD Hyperlipidemia H/O Intolerance to Aggrenox Parkinson's disease Continue home meds Hypothyroidism Continue Levothyroxine Restless leg syndrome Continue Requip DVT Px: Eliquis Code Status Full code Disposition Home Total Time Total Time Spent Total Time Spent (In Minutes): 57 minutes Discharge Plan Discharge Items Patient Disposition: Home - Home Health Services Reason For Visit: CP, HTN CRISIS, ABN LYME Discharge Diagnosis: Atypical Chest Pain Suspected Lyme's Disease Activity: Per Instructions section Exercise/Sports: Gradually increase as tolerated Non-emergency contact: Primary Care Provider and Assistant Secretary Call non-emergency contact if: you have any medication questions, your symptoms worsen and your pain is concerning for you Follow-up/Referrals: Yadira Browne CRNP [Nurse Practitioner] - (Date & Time 02/28/2023 10:30 AM Provider MINESH Ramos Department Gastroenterology, [facility] ) rTacey Vides PA-C [Primary Care Provider] - (Date & Time 01/17/2023 11:10 AM Provider Vika Castellanos, Department [facility] ) Diet: Heart Healthy Diet Texture: Easy to Chew Diet Comment: Extra moist, slippery diet, Eat slowly and small meals Addtl Attending Provider Instructions: Follow-up with your primary care physician Tracey Vides PA-C on 01/17/2023 11:10 AM Follow-up with your android framework developer Yadira EDGE on 02/28/2023 10:30 AM --Your blood test for Lyme's disease is pending at the time of discharge. Follow-up with your physician for results. If your result for Lyme's disease is negative, can stop doxycycline as an instructed. Medication Changes: -- Start taking famotidine 40 mg at bedtime, omeprazole 2 times a day as advised by your android framework developer -- Take lisinopril 2.5 mg daily for better control of blood pressure. Monitor your blood pressure regularly at home. Further instructions as per your primary care physician. -- Start taking doxycycline 100 mg 2 times a day until you have final Lyme's test results. Discuss with your physician for further instructions. Seek immediate medical attention if your symptoms reoccur or worsen Please take all medications as instructed on discharge list below. Please call if you have any questions or problems. You can reach a [facility] hospitalist on duty at [facility] 24 hours a day by calling [phone] Pending Studies at Discharge: Yes Studies:: Lyme serology Stand-Alone Forms: My [facility], Smoking Cessation Medications and DC Order Prescriptions: New famotidine 40 mg Tablet 40 mg PO HS Qty: 30 1RF lisinopril 2.5 mg Tablet 2.5 mg PO DAILY Qty: 30 0RF doxycycline hyclate 100 mg tablet 100 mg PO BID Qty: 16 0RF Continued ropinirole 1 mg Tablet 1 mg PO HS levothyroxine 50 mcg tablet 50 mcg PO QAM Rx Instructions: Take this medication at least 30 minutes before breakfast or any other medications montelukast 10 mg Tablet 10 mg PO QAM lorazepam 1 mg tablet 1 - 2 mg PO UD PRN (Reason: Anxiety/Insomnia) carbidopa-levodopa 25-100 mg Tablet 1 tab PO TID escitalopram oxalate 10 mg tablet 10 mg PO HS ondansetron HCl 4 mg tablet 4 mg PO BID gabapentin 300 mg capsule 300 mg PO HS diphenhydramine-acetaminophen [Tylenol PM Extra Strength] 25-500 mg Tablet 2 tab PO HS PRN (Reason: Pain) potassium chloride [Klor-Con M10] 10 mEq tablet,ER particles/crystals 10 meq PO QAM Eliquis 5 mg tablet 5 mg PO BID Changed omeprazole 40 mg Capsule,Delayed Release(Dr/Ec) 40 mg PO BID Qty: 60 1RF Discharge Orders: Discharge Order (Routine); Ordered 01/11/23 Ordered By: Jayden Sun Admission Data Admit Date/Time: 01/09/23 01:48 Attending Provider: Jayden Sun Admit Provider: Jean-Claude Lozada Primary Care Provider: Tracey Vides Other Providers: Jean-Claude Lozada ; [facility] ; Ximena Engel ; Gunner Randolph ; Vance Ziegler ; Cirilo Alarcon ; Turner Castellanos ; Negrito Mckeon ; Manjinder Ewing ; Myriam Mcgill ; Iqra Flores ; Ximena Escobar ; Juancho Cary ; Igor Steiner ; Lacy Tompkins ; Temo Mark ; Alta Schultz ; Jaimie Sweeney ; Kaylee Segura ; Mae Chaparro ; Jeancarlos Bruner ; Julio Kelly ; Phil Albrecht ; Ade Pleitez ; David Nazario ; Alba Gonzalez ; Anna Anderson ; Yadira Browne ; Rosa Luciano ; Jasmeet Murillo ; Mega Lawrence ; Teddy Vidal ; Ximena Bradshaw ; Tammy Taylor Jr
[2023-01-11] MEDS ORDERED: FAMOTIDINE 40 MG TABLET PO SCH (21:00)
[2023-01-12 15:32] LABS: 18KDIGG Band NON-REACTIVE; 23KDIGG Band NON-REACTIVE; 23KDIGM Band REACTIVE; 28KDIGG Band NON-REACTIVE; 30KDIGG Band NON-REACTIVE; 39KDIGG Band NON-REACTIVE; 39KDIGM Band NON-REACTIVE; 41KDIGG Band REACTIVE; 41KDIGM Band NON-REACTIVE; 45KDIGG Band NON-REACTIVE; 58KDIGG Band REACTIVE; 66KDIGG Band NON-REACTIVE; 93KDIGG Band NON-REACTIVE; Lyme Antibodies, WB IgG NEGATIVE (NEGATIVE); Lyme Antibodies, WB IgM NEGATIVE (NEGATIVE)
== END 2023-01-11 16:18 | disposition home health service (06) ==
LOC: ED 19:53 → 4W 01-09 01:48 → INTOOBSV 01-09 01:48 → 4W 01-09 04:17

== ENCOUNTER 2024-06-17 17:35 | Inpatient (IN) ==
--- OUTSIDE RECORDS SUMMARY | 2024-06-17 17:40 | External Medical Summary | Summary of Care ---
Author Name Unknown Organization [facility] Address [address] [place] [address] Phone [phone] Care Team Providers Care Sternman Name Role Phone Art Acosta DO Primary Care Provider [phone] Reason for Visit * Reason Onset Date Comments Medication Refill 05/14/2024 Encounter Details Date Type Department Care Team (Late st Contact Info) Description 05/14/2024 Refill [facility] [address] [place] [address] Art Acosta DO [address] [place] [address] Anxiety state Allergies Active Allergy Reactions Criticality Noted Date Comments Erythromycin 10/07/2021 Drowsy Cyclobenzaprine Hcl 02/19/2014 Worsened rls, made her heart pound Nitroglycerin Low 01/09/2023 Other reaction(s): Headache Famotidine Other (Please comment) 2023 GI upset, nausea Sulfa Antibiotics Edema airway High 08/11/2004 Tolterodine Edema airway High 08/11/2004 Detrol LA documented as of this encounter (statuses as of 05/16/2024) Medications Medication Sig Dispensed Refills Start Date End Date Status acetaminophen (TYLENOL) 325 MG Tablet Take 1 Tablet by mouth. 04/19/2016 Active Tylenol PM Extra Strength 500-25 MG Oral Tablet (diphenhydrAMINE-AP AP (sleep)) Take 1 Tablet by mouth daily as needed for Sleep. Active Atropine Sulfate 1 % Ophthalmic SolutionIndications :Sialorrhea 1-2 drop under you tongue every 8 hours as needed for drooling 2 mL 12 08/12/2023 Active rOPINIRole HCl 1 MG Oral Tablet (Requip) TAKE 1 TABLET BY MOUTH EVERYDAY AT BEDTIME 90 Tablet 3 09/14/2023 Active Levothyroxine Sodium 50 MCG Oral Tablet (Levoxyl)Indication s:Hypothyroidism, unspecified type TAKE 1 TABLET BY MOUTH EVERY MORNING (AT LEAST 30 MIN PRIOR TO BREAKFAST OR OTHER MEDS) 90 Tablet 3 11/22/2023 Active Apixaban 5 MG Oral Tablet (Eliquis)Indication s: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),FPC current use of anticoagulant therapy TAKE 1 TABLET BY MOUTH AT 8AM AND THEN TAKE 1 TABLET AT 8PM. 180 Tablet 1 01/18/2024 Active Lisinopril 2.5 MG Oral Tablet (Prinivil) Take 1 Tablet by mouth in the morning. 90 Tablet 1 01/16/2024 Active Carbidopa-Levodopa 25-100 MG Oral Tablet (Sinemet) 1 tablet 3x daily 270 Tablet 1 02/23/2024 Active Ondansetron HCl 4 MG Oral Tablet (Zofran)Indications :Nausea TAKE 1 TABLET BY MOUTH EVERY DAY IN THE MORNING AND AT BEDTIME 60 Tablet 2 03/05/2024 Active Omeprazole 40 MG Oral Capsule Delayed Release (PriLOSEC)Indicatio ns:Gastroesophageal reflux disease without esophagitis TAKE 1 CAPSULE BY MOUTH EVERY DAY IN THE MORNING 90 Capsule 03/06/2024 Active Montelukast Sodium 10 MG Oral Tablet (Singulair)Indicati ons:Chronic rhinitis,Cough TAKE 1 TAB BY MOUTH DAILY. FOR COUGH 90 Tablet 3 03/21/2024 Active Klor-Con M10 10 MEQ Oral Tablet Extended Release (potassium chloride ER) TAKE 1 TABLET BY MOUTH EVERY DAY 90 Tablet 3 04/12/2024 Active Gabapentin 300 MG Oral Capsule (Neurontin)Indicati ons:New onset of headaches after age 50 TAKE 1 CAPSULE BY MOUTH TWICE DAILY 180 Capsule 1 04/12/2024 Active Escitalopram Oxalate 20 MG Oral Tablet (Lexapro)Indication s:Anxiety state,Adjustment disorder with depressed mood TAKE 1 TABLET BY MOUTH EVERY DAY IN THE MORNING 90 Tablet 1 04/16/2024 Active LORazepam 0.5 MG Oral Tablet (Ativan)Indications :Anxiety state Take 1 Tablet by mouth 2 times a day as needed for Anxiety or Insomnia. 30 Tablet 05/16/2024 Active LORazepam 0.5 MG Oral Tablet (Ativan)Indications :Anxiety state Take 1 Tablet by mouth 2 times a day as needed for Anxiety or Insomnia. 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 01/11/2024 Senile osteoporosis 07/07/2023 FPC current use of anticoagulant therapy 0 06/30/2022 Recurrent pulmonary emboli 06/30/2022 Subclavian arterial stenosis 06/30/2022 Moderate episode of recurrent major depressive d isorder 03/25/2022 Pulmonary embolism and infarction 11/13/2020 Controlled substance agreement signed 08/04/2017 Parkinson's disease 08/04/2017 Dyslipidemia, goal LDL below 130 07/28/2010 SPINAL STENOSIS-LUMBAR S/P SURGERY 11/2612/31/19 10 CEREBROVASCULAR DZ, POST-STROKE 01/28/2009 Overview: Modified per CVA protocol #8 Benign neoplasm of colon 11/19/2008 Overview: hyperplastic /repeat colonoscopy in 3-5 yrs Adjustment disorder with depressed mood 09/23/20 08 Hypopotassemia 12/01/2007 Anxiety state 10/03/2007 Insomnia 10/03/2007 Overview: ICD-10 update of inactive term Esophageal reflux 07/05/2007 Hypothyroidism 05/02/2007 documented as of this encounter (statuses as of 05/16/2024) Resolved Problems Problem Noted Date Diagnosed Date Resolved Date 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 Spinal stenosis of lumbar re gion without neurogenic claudication 04/14/2009 12/30/2009 Chronic rhinitis 09/02/2008 08/04/2017 Osteoarthrosis, unspecified whether generalized or localized, lower leg 06/27/200807/17 Dyslipidemia, goal LDL below 160 10/31/2007 10/02/2009 Overview: Per Lipid Taxonomy. Dyslipidemia, goal LDL below 160 10/03/2007 10/31/2007 Intestinal infection due to Clostridium difficile 07/05/2007 12/30/2009 Gastritis and gastroduodenitis 05/02/2007 07/18/2009 Cerebrovascular event, ill-d efined, within last 8 weeks 05/02/2007 01/30/2009 Overview: Modified per CVA protocol #8 Lumbago 05/02/2007 08/04/2017 Colitis, enteritis, and barrett roenteritis of presumed infectious origin 07/18/2009 Spinal stenosis, unspecified region other than cervical 12/05/2009 documented as of this encounter (statuses as of 05/16/2024) Immunizations Name Administration Dates Next Due COVID-19 mRNA, LNP-s, No Pre serve, 2-Dose Series (Moderna) 03/18/2021,02/18/2021 Pneumococcal Conjugate Vacc, 13 Valent (Prevnar) 10/30/2015 Pneumococcal Polysaccharide PPV23 (Pneumovax) 06/14/2007 Seasonal Influenza Virus Vac cine, Unspecified Formulation 07/21/2021,07/02/2020,07/14/2019,07/17,08/04/2017,07/01/2016,06/27/20 15,07/16/2014,07/16/2013,07/19/2012,1 ,07/28/2010,06/26/2009,07/22,09/05/2007 Seasonal Influenza, PF, 6 M & above, IM , (FluLaval or Fluzone) 07/02/2020,07/14/2019,07/27/2018,07/1708/04/2018 Seasonal Influenza, Quadriva lent Hd (Fluzone Hd) 07/07/2023,06/30/2022,07/21/2021 Seasonal Influenza, Quadriva lent, No Preserve, IM 07/01/2016 Seasonal Influenza, Split, I IV3, With Preserve, Inj 06/27/2015,07/16/2014,07/16/2013,12/2011,08/09/2011,07/28/2010,06/26/20 09,07/22/2008,09/05/2007 TD, Preservative Free 07/22/2008 TDAP (age 10 and older)(Boostrix) 11/05/2021 Varicella Zoster Vaccine (Adult) 07/19/2013 documented as of this encounter Social History Tobacco Use Types Packs/Day Years Used Date Smoking Tobacco: Former Cigarettes 0.5 35 0 03/20/1944 - 03/20/1979 Smokeless Tobacco: Never Comments:quit in 1978 Alcohol Use Standard Drinks/Week Comments No 0 (1 standard drink = 0.6 oz pur e alcohol) PHQ-2 Answer Date Recorded PHQ Adult Total Score 0 05/24/2022 Hunger Vital Sign Answer Date Recorded Within the past 12 months, y ou worried that your food would run out before you got the money to buy more. Never true 05/24/20 22 Within the past 12 months, t he food you bought just didn't last and you didn't have money to get more. Never true 05/24/2022 Sex and Gender Information Value Date Recorded Sex Assigned at Female 12/13/2019 10:45 AM EST Gender Identity Female 12/13/2019 10:45 AM EST Sexual Orientation Straight 05/24/2022 10 :37 AM EDT Job Start Date Occupation Industry Not on file Not on file Not on file documented as of this encounter Miscellaneous Notes * Telephone Encounter - Roxana Starr PHARM Tech - 05/16/2024 6:03 PM EDT Pt calling to request lorazepam. Informed pt that RX is available at their pharmacy. Pt verbalized understanding and stated they will check with their pharmacy regarding this medication. Thank You, Roxana Starr [facility] Paperhanger Contractor III [facility] 05/16/2024, 6:03 PM * Telephone Encounter - Art Acosta DO - 05/16/2024 2:25 PM EDTSigned Prescriptions: Disp Refills LORazepam 0.5 MG Oral Tablet (Ativan) 30 Tab*0 Sig: Take 1 Tablet by mouth 2 times a day as needed for Anxiety or Insomnia.Authorizing Provider: ART ACOSTA--- * Telephone Encounter - Art Acosta DO - 05/16/2024 2:25 PM EDTSigned Prescriptions: Disp Refills LORazepam 0.5 MG Oral Tablet (Ativan) 30 Tab*0 Sig: Take 1 Tablet by mouth 2 times a day as needed for Anxiety or Insomnia. Authorizing Provider: ART ACOSTA * Telephone Encounter - Art Acosta DO - 05/16/2024 2:25 PM EDTSigned Prescriptions: Disp Refills LORazepam 0.5 MG Oral Tablet (Ativan) 30 Tab*0 Sig: Take 1 Tablet by mouth 2 times a day as needed for Anxiety or Insomnia. Authorizing Provider: ART ACOSTA * Telephone Encounter - Shonda Murray CPhT - 05/16/2024 11:19 AM EDT Pt calling to check on status of Lorazepam. Caller can be reached at [phone]. Thank you, Shonda Murray CPhT Paperhanger Contractor [facility] ([facility]) 05/16/2024,11:19 AM * Telephone Encounter - Cesia Lin CPhT - 05/15/2024 12:55 PM EDT Pt requesting HIGH PRIORITY due to out of med Pt calling to check on status of LORazepam 0.5 MG Oral Tablet (Ativan) . Caller can be reached at [phone]. Thank you, Cesia Lin CPhT Machine Engineer II [facility] ([facility]) (Formerly Telepharmacy) 05/15/2024,12:55 PM * Telephone Encounter - Asuncion Frank [facility] - 05/15/2024 8:01 AM EDT Pending Prescriptions: Disp Refills LORazepam 0.5 MG Oral Tablet (Ativan) 30 Tab*0 Sig: Take 1 Tablet by mouth 2 times a day as needed for Anxiety or Insomnia. * Telephone Encounter - Asuncion Frank RP - 05/15/2024 8:01 AM EDT I have reviewed the patients controlled substance dispensing history in the Prescription Drug Monitoring Program in compliance with the [facility] regulations before prescribing a controlled substance. PDMP checked on 05/15/2024. Pending Prescriptions: Disp Refills LORazepam 0.5 MG Oral Tablet (Ativan) 30 Tab*0 Sig: Take 1 Tablet by mouth 2 times a day as needed for Anxiety or Insomnia. Last Visit: 02/17/2024 (in office), 11/17/2020 (telemedicine) Next Visit: 05/28/2024 Date medication was last filled: 04/26/24 Date medication is due for refill: 05/10/24 [id number] [address] [place] [address] Is this request for a controlled substance? Yes and Urine Drug Screen Not completed Toxicology results: No results found. However, due to the size of the patient record, not all encounters were searched.Please check Results Review for a complete set of results. Please approve if appropriate. Thank you, Asuncion Frank, PharmD Clinical Pharmacist [facility]) [phone] 05/15/2024, 8:01 AM * Telephone Encounter - Nikki Gutierrez CPhT - 05/14/2024 8:55 AM EDT Did you pend patient's preferred pharmacy and medication before forwarding?yes Pharmacy: [id number] [address] [place] [address] Pending Prescriptions: Disp Refills LORazepam 0.5 MG Oral Tablet (Ativan) 30 Tab*0 Sig: Take 1 Tablet by mouth 2 times a day as needed for Anxiety or Insomnia. Last Visit: 02/17/2024 (in office), 11/17/2020 (telemedicine) Next Visit: 05/28/2024 If no future appointments scheduled, and last appointment is greater than a year ago, please schedule patient for a follow-up appointment Last date the medication was ordered: 04/26/24 Is this request for a controlled substance?Yes, What was the last refill date 04/26/24 w/ quantity 30 and dosage 0.5mg and Urine Drug Screen Not completed Urine Drug Screen:No results found. However, due to the size of the patient record, not all encounters were searched. Please check Results Review for a complete set of results. Patient Phone Numbers Labs: Lab Results Component Value Date/Time CREAT 0.8 02/20/2024 09:49 AM CREAT 0.70 11/25/2020 12:00 AM CREAT 0.9 10/28/2020 10:50 AM POTASSIUM 3.9 02/20/2024 09:49 AM POTASSIUM 3.9 11/25/2020 12:00 AM POTASSIUM 3.4 (L) 10/28/2020 10:50 AM TSH 0.45 02/20/2024 09:49 AM TSH 1.08 07/02/2020 12:37 PM LDLCALC 70 09/03/2019 08:43 AM LDLDIRECT 97 10/28/2020 10:50 AM LDLDIRECT 86 01/06/2011 09:02 AM ALT <5 (L) 08/12/2023 10:44 AM ALT 9 (L) 10/28/2020 10:50 AM HGBA1C 5.5 08/26/2010 08:31 AM documented in this encounter Plan of Treatment Upcoming Encounters Date Type Department Care Team (Late st Contact Info) Description 05/28/2024 10:20 AM EDT Office Visit [facility] [address] [place] [address] Juanita Mallory MD [address] [place] [address] 07/10/2024 10:30 AM EDT Office Visit Rheumatology [facility] [address] [place] [address] Dru Crystal CRNP [address] [place] [address] 08/31/2024 11:20 AM EST Office Visit Neurology [facility] [place] [address] [place] [address] Hung Ennis, DO [address] [place] [address] 09/26/2024 11:30 AM EST Office Visit Gastroenterology, [facility] [place] [address] [place] [address] Lacy Tompkins CRNP [address] [place] [id number] Health Maintenance Due Date Last Done Comments Zoster Vaccines (2 of 3) 09/13/2013 07/19/2013 Depression Monitoring 05/24/2023 05/24/2022 COVID-19 Vaccine ( season) 2023 03/18/2021, 02/18/2021 Influenza Vaccine (FLU shot) (#1) 2024 07/07/2023, 06/30/2022, 07/21/2021, Additional history exists TSH 02/19/2025 02/20/2024, 12/0 01/2023, 07/07/2023, Additional history exists DXA Scan 03/22/2025 03/22/2023, 03/17, 02/08/2012, Additional history exists DTaP,Tdap,and Td Vaccines (2 - Td or Tdap) 11/05/2031 11/05/2021, 07/22/2008 Pneumococcal Vaccine: 65+ Years Completed 10/30/2015, 06/14/2007 VITAMIN D LEVEL ONCE IN A LIFETIME-USE SMARTSET# [id number] Completed 07/07/2023, 03/25/2022, 11/16/2019, Additional history exists HPV (Gardasil) Vaccine Aged Out No lo nger eligible based on patient's age to complete this topic Hepatitis B Vaccine Aged Out No longe r eligible based on patient's age to complete this topic MENINGOCOCCAL (MENACTRA/MENVEO) Aged Out No longer eligible based on patient's age to complete this topic documented as of this encounter Medical Devices Not on filedocumented as of this encounter Visit Diagnoses Diagnosis Anxiety state Anxiety state, unspecified documented in this encounter Care Teams Sternman Relationship Specialty Start Date End Date Art Acosta DO [address] [place] [address] PCP - General Family Medicine 05/22/12 documented as of this encounter
--- OUTSIDE RECORDS SUMMARY | 2024-06-17 17:40 | External Medical Summary | Summary of Care ---
Author Name Unknown Organization [facility] Address [address] [place] [address] Phone [phone] Care Team Providers Care Power System Dispatcher Name Role Phone Vika Castellanos DO Primary Care Provider [phone] Reason for Visit * Reason Onset Date Comments Medication Refill 05/31/2024 Encounter Details Date Type Department Care Team (Late st Contact Info) Description 05/31/2024 Refill [facility] [address] [place] [address] Vika Castellanos DO [address] [place] [address] Anxiety state Allergies Active Allergy Reactions Criticality Noted Date Comments Erythromycin 10/07/2021 Drowsy Cyclobenzaprine Hcl 02/19/2014 Worsened rls, made her heart pound Nitroglycerin Low 01/09/2023 Other reaction(s): Headache Famotidine Other (Please comment) 2023 GI upset, nausea Sulfa Antibiotics Edema airway High 08/11/2004 Tolterodine Edema airway High 08/11/2004 Detrol LA documented as of this encounter (statuses as of 06/06/2024) Medications Medication Sig Dispensed Refills Start Date [...] MG Oral Tablet (Eliquis)Indication s: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 Active Calcium 500 MG Oral Tablet Take 1 Tablet by mouth in the morning. Active LORazepam 0.5 MG Oral Tablet (Ativan)Indications :Anxiety state Take 1 Tablet by mouth 2 times a day as needed for Anxiety or Insomnia. 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 0 06/30/2022 [...] as of this encounter (statuses as of 06/06/2024) Resolved Problems Problem Noted Date Diagnosed Date [...] as of this encounter (statuses as of 06/06/2024) Immunizations Name Administration Dates Next Due COVID-19 [...] Influenza, Split, I IV3, With Preserve, Inj 06/27/2015,07/16/2014,07/16/2013,10/12/2011,08/09/2011,07/28/2010,06/26/20 09,07/22/2008,09/05/2007 TD, Preservative Free 07/22/2008 TDAP (age [...] encounter Miscellaneous Notes * Telephone Encounter - Vika Castellanos DO - 06/06/2024 8:18 AM EDTRefused Prescriptions: Disp Refills LORazepam 0.5 MG Oral Tablet (Ativan) 30 Tab*0 Sig: Take 1 Tablet by mouth 2 times a day as needed for Anxiety or Insomnia. Refused By: SONA CARPENTER Reason for Refusal: Managed by another physician * Telephone Encounter - Vika Castellanos DO - 06/06/2024 8:17 AM EDT Refilled by Dr Patterson. I never got Rx request. Did pt get her medication? * Telephone Encounter - Serena Mojica OSA - 06/05/2024 6:41 PM EDT Son inquiring why mother hasn't had script filled. Tried stopping by office this evening and says doors were locked. Doctor spoke with son during phone call and says he will fill prescription * Telephone Encounter - Sheila Mckoy large sheetfed press operator - 06/05/2024 6:31 PM EDT Pt called to get office hours for [facility]. Thank you, Sheila Mckoy infusion nurse Sofa Inspector II [facility] 06/05/2024,6:33 PM * Telephone Encounter - Dafne Menendez large sheetfed press operator - 06/05/2024 5:29 PM EDT Pt is calling again please send as pt was in tears please advise Thank you for your assistance Dafne Menendez Sofa Inspector II [facility] ([facility]) 06/05/2024,5:29 PM * Telephone Encounter - Ira Hylton large sheetfed press operator - 06/05/2024 3:36 PM EDT Pt calling to check on status of Lorazepam. Pt very frustrated and does not understand why med hasn't been sent. Pt is out of medication. Please send. Thank you, Ira Hylton, County Program Technician [facility] ([facility]) 06/05/2024,3:37 PM * Telephone Encounter - Nikki Gutierrez CPhT - 06/05/2024 9:20 AM EDT Pt is out of medication. High priority. Pt calling to check on status of Lorazepam. Caller can be reached at [phone]. Thank you, Nikki Gutierrez CPhT Recovery Room Nurse II [facility] ([facility]) 06/05/2024,9:20 AM * Telephone Encounter - Adal Godwin [facility] - 06/04/2024 7:03 PM EDT Pending Prescriptions: Disp Refills LORazepam 0.5 MG Oral Tablet (Ativan) 30 Tab*0 Sig: Take 1 Tablet by mouth 2 times a day as needed for Anxiety or Insomnia. Refused Prescriptions: Disp Refills LORazepam 0.5 MG Oral Tablet (Ativan) 30 Tab*0 Sig: Take 1 Tablet by mouth 2 times a day as needed for Anxiety or Insomnia. Refu sed By: SONA CARPENTER Reason for Refusal: Managed by another physician * Telephone Encounter - Adal Godwin [facility] - 06/04/2024 7:00 PM EDT I have reviewed the patients controlled substance dispensing history in the Prescription Drug Monitoring Program in compliance with the [facility] regulations before prescribing a controlled substance. PDMP checked on 06/04/2024. Pending Prescriptions: Disp Refills LORazepam 0.5 MG Oral Tablet (Ativan) 30 Tab*0 Sig: Take 1 Tablet by mouth 2 times a day as needed for Anxiety or Insomnia. Refused Prescriptions: Disp Refills LORazepam 0.5 MG Oral Tablet (Ativan) 30 Tab*0 Sig: Take 1 Tablet by mouth 2 times a day as needed for Anxiety or Insomnia. Refused By: SONA CARPENTER Reason for Refusal: Managed by another physician Last Visit: 05/28/2024 (in office), 11/17/2020 (telemedicine) Next Visit: Visit date not found Date medication was last filled: 05/16/24 Date medication is due for refill: 05/30/24 [facility]acy: [id number] [id number] [facility] Is this request for a controlled substance? Yes and Urine Drug Screen Not completed Toxicology results: No results found. However, due to the size of the patient record, not all encounters were searched.Please check Results Review for a complete set of results. Please approve if appropriate. Thanks, Adal Godwin PharmD Clinical Pharmacist [facility] ([facility]) [phone] 06/04/2024, 7:00 PM * Telephone Encounter - Sheila Mckoy PHARM Tech - 06/04/2024 6:53 PM EDT Pt requesting HIGH PRIORITY due to pt will be out for tomorrow pt calling to check on status of lorazepam 0.5 mg. Caller can be reached at [phone]. Thank you, Sheila Mckoy [facility] Sofa Inspector II [facility]) 06/04/2024,6:53 PM * Telephone Encounter - Dayanara William LPN - 06/04/2024 5:11 PM EDTPending Prescriptions: Disp Refills LORazepam 0.5 MG Oral Tablet (Ativan) 30 Tab*0 Sig: Take 1 Tablet by mouth 2 times a day as needed for Anxiety or Insomnia. Refused Prescriptions: Disp Refills LORazepam 0.5 MG Oral Tablet (Ativan) 30 Tab*0 Sig: Take 1 Tablet by mouth 2 times a day as needed for Anxiety or Insomnia. R efused By: SONA CARPENTER Reason for Refusal: Managed by another physician * Telephone Encounter - Trinity Hernandez CPhT - 06/04/2024 3:58 PM EDT pt calling to check on status of lorazepam. Pt states she does get medication from dr. Castellanos. She has 1 tablet left Thank you, Trinity Hernandez CPhT II Sofa Inspector [facility] 06/04/2024, 3:58 PM * Telephone Encounter - Vika Castellanos DO - 06/04/2024 11:27 AM EDTRefused Prescriptions: Disp Refills LORazepam 0.5 MG Oral Tablet (Ativan) 30 Tab*0 Sig: Take 1 Tablet by mouth 2 times a day as needed for Anxiety or Insomnia. Refused By: SONA CARPENTER Reason for Refusal: Managed by another physician * Telephone Encounter - Jasmina Monteiro CPhT - 06/04/2024 8:31 AM EDT Pt calling to check on status of Lorazepam. Pt is out of med, requesting high priority Thank you, Jasmina Monteiro CPhT Sofa Inspector II [facility] ([facility]) 06/04/2024, 8:31 AM * Telephone Encounter - Jason Hickman [facility] - 06/01/2024 5:25 PM EDTPending Prescriptions: Disp Refills LORazepam 0.5 MG Oral Tablet (Ativan) 30 Tab*0 Sig: Take 1 Tablet by mouth 2 times a day as needed for Anxiety or Insomnia. * Telephone Encounter - Jason Hickman [facility] - 06/01/2024 5:25 PM EDT I have reviewed the patients controlled substance dispensing history in the Prescription Drug Monitoring Program in compliance with the [facility] regulations before prescribing a controlled substance. PDMP checked on 06/01/2024. Pending Prescriptions: Disp Refills LORazepam 0.5 MG Oral Tablet (Ativan) 30 Tab*0 Sig: Take 1 Tablet by mouth 2 times a day as needed for Anxiety or Insomnia. Last Visit: 05/28/2024 (in office), 11/17/2020 (telemedicine) Next Visit: Visit date not found Date medication was last filled: 05-16-24 Date medication is due for refill: 05-31-24 [facility]acy: [id number] [address] [facility] Is this request for a controlled substance? and Urine Drug Screen Not completed Toxicology results: No results found. However, due to the size of the patient record, not all encounters were searched.Please check Results Review for a complete set of results. Please approve if appropriate. Taiwo Giraldo.Ph. Clinical Pharmacist [facility] ([facility]) [address] [place] [address], [address]: [phone] 06/01/2024,5:25 PM * Telephone Encounter - Lay Boone, large sheetfed press operator - 05/31/2024 1:18 PM EDT Did you pend patient's preferred pharmacy and medication before forwarding?yes Pharmacy: [id number] [address] [facility] Pending Prescriptions: Disp Refills LORazepam 0.5 MG Oral Tablet (Ativan) 30 Tab*0 Sig: Take 1 Tablet by mouth 2 times a day as needed for Anxiety or Insomnia. Last Visit: 05/28/2024 (in office), 11/17/2020 (telemedicine) Next Visit: Visit date not found If no future appointments scheduled, and last appointment is greater than a year ago, please schedule patient for a follow-up appointment Last date the medication was ordered: 05/16/2024 Is this request for a controlled substance?Yes, What was the last refill date 05/16/2024 w/ [id number] and dosage 0.5 mg and Urine Drug Screen Not completed Urine [...] Care Team (Late st Contact Info) Description 07/10/2024 10:30 AM EDT Office Visit Rheumatology [facility] [place] [id number] [place] [address] Dru Crystal CRNP [address] [employer] [place] [address] 08/31/2024 11:20 AM EST Office Visit Neurology [facility] [address] [place] [address] Hung Ennis, DO [address] [place] [address] 09/26/2024 11:30 AM EST Office Visit Gastroenterology, [facility] [address] [place] [address] [address] Lacy Tompkins CRNP [address] [place] [address] Health Maintenance Due Date Last Done Comments Zoster Vaccines (2 of 3) 09/13/2013 07/19/2013 Adult Wellness Visit 10/30/2016 10/30/2015 Depression Monitoring 05/24/2023 05/24/2022 COVID-19 Vaccine ( [...] D LEVEL ONCE IN A LIFETIME-USE SMARTSET# [id number] Completed 07/07/2023, 03/25/2022, 11/16/2019, Additional history exists [...] unspecified documented in this encounter Care Teams Power System Dispatcher Relationship Specialty Start Date End Date Vika Castellanos DO [address] [place] [address] PCP - General Family Medicine 05/22/12 documented as of this encounter
--- OUTSIDE RECORDS SUMMARY | 2024-06-17 17:40 | External Medical Summary | Summary of Care ---
Author Name Unknown Organization [facility] Address [address] [place] [address] Phone [phone] Care Team Providers Care Field Director Name Role Phone Art Acosta DO Primary Care Provider [phone] Reason for Visit * Reason Onset Date Comments Medication Refill 05/14/2024 Encounter Details Date Type Department Care Team (Late st Contact Info) Description 05/14/2024 Refill [facility] [address] [place] [facility] [place] [address] Art Acosta DO [address] [place] [address] Anxiety state Allergies Active Allergy [...] MG Oral Tablet (Eliquis)Indication s: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),alf current use of anticoagulant therapy TAKE 1 [...] without fluctuating manifestations 01/11/2024 Senile osteoporosis 07/07/2023 alf current use of anticoagulant therapy 0 06/30/2022 [...] encounter Miscellaneous Notes * Telephone Encounter - Art Acosta DO - 05/16/2024 2:25 PM EDTSigned Prescriptions: Disp Refills LORazepam 0.5 MG Oral Tablet (Ativan) 30 Tab*0 Sig: Take 1 Tablet by mouth 2 times a day as needed for Anxiety or Insomnia.Authorizing Provider: ART CAOSTA--- * Telephone Encounter - Art Acosta DO [...] of Lorazepam. Caller can be reached at [phone]. Thank you, Shonda Murray CPhT Interior Design Consultant [facility] ([facility]) 05/16/2024,11:19 AM * Telephone Encounter - Cesia Lin CPhT - 05/15/2024 12:55 PM EDT Pt requesting HIGH PRIORITY due to out of med Pt calling to check on status of LORazepam 0.5 MG Oral Tablet (Ativan) . Caller can be reached at [phone]. Thank you, Cesia Lin CPhT Bulk Mail Technician II [facility] ([facility] (Former[facility]) 05/15/2024,12:55 PM * Telephone Encounter - Asuncion Frank [facility] - 05/15/2024 8:01 AM EDT Pending Prescriptions: Disp Refills LORazepam 0.5 MG Oral Tablet (Ativan) 30 Tab*0 Sig: Take 1 Tablet by mouth 2 times a day as needed for Anxiety or Insomnia. * Telephone Encounter - Asuncion Frank [facility] - 05/15/2024 8:01 AM EDT I have reviewed the patients controlled substance dispensing history in the Prescription Drug Monitoring Program in compliance with the [place] regulations before prescribing a controlled substance. PDMP checked on 05/15/2024. Pending Prescriptions: Disp Refills LORazepam 0.5 MG Oral Tablet (Ativan) 30 Tab*0 Sig: Take 1 Tablet by mouth 2 times a day as needed for Anxiety or Insomnia. Last Visit: 02/17/2024 (in office), 11/17/2020 (telemedicine) Next Visit: 05/28/2024 Date medication was last filled: 04/26/24 Date medication is due for refill: 05/10/24 Pharmacy: [id number] [address] [facility] Is this request for a controlled substance? Yes and Urine Drug Screen Not completed Toxicology results: No results found. However, due to the size of the patient record, not all encounters were searched.Please check Results Review for a complete set of results. Please approve if appropriate. Thank you, Asuncion Frank, PharmD Clinical Pharmacist [facility] ([facility]) [phone] 05/15/2024, 8:01 AM * Telephone Encounter - Nikki Gutierrez CPhT - 05/14/2024 8:55 AM EDT Did you pend patient's preferred pharmacy and medication before forwarding?yes Pharmacy: [id number] [address] [facility] Pending Prescriptions: Disp Refills LORazepam 0.5 MG [...] Description 05/28/2024 10:20 AM EDT Office Visit [facility] [address] [place] [address] Juanita Mallory MD [address] [place] [address] 07/10/2024 10:30 AM EDT Office Visit Rheumatology [facility] [address] [facility] [place], [place] [address] Dru Crystal CRNP [address] [facility] [place] [address] 08/31/2024 11:20 AM EST Office Visit Neurology [facility] [address] [place] [address] Hung Ennis, [address] [facility] [place], [place] [address] 09/26/2024 11:30 AM EST Office Visit Gastroenterology, [facility] [address] [address] Lacy Tompkins CRNP [address] [place] [address] Health Maintenance Due Date Last Done Comments Zoster Vaccines (2 of 3) 09/13/2013 07/19/2013 Depression Monitoring 05/24/2023 05/24/2022 COVID-19 Vaccine (3 - 2022- season) 2023 03/18/2021, 02/18/2021 Influenza Vaccine (FLU shot) (#1) 2024 07/07/2023, 06/30/2022, 07/21/2021, Additional history exists TSH 02/19/2025 02/20/2024, 12/0 01/2023, 07/07/2023, Additional history exists DXA Scan 03/22/2025 03/22/2023, 03/17, 02/08/2012, Additional history exists DTaP,Tdap,and Td Vaccines (2 - Td or Tdap) 11/05/2031 11/05/2021, 07/22/2008 Pneumococcal Vaccine: 65+ Years Completed 10/30/2015, 06/14/2007 VITAMIN D LEVEL ONCE IN A LIFETIME-USE SMARTSET# [id number] Completed 07/07/2023, 03/25/2022, 11/16/2019, Additional history exists [...] unspecified documented in this encounter Care Teams Field Director Relationship Specialty Start Date End Date Art Acosta DO [address] [place] [facility] [place] [address] PCP - General Family Medicine 05/22/12 documented as of this encounter
--- OUTSIDE RECORDS SUMMARY | 2024-06-17 17:40 | External Medical Summary | Summary of Care ---
Author Name Unknown Organization [facility] Address [address] [place] [address] Phone [phone] Care Team Providers Care Commissary Assistant Name Role Phone Vika Castellanos DO Primary Care Provider [phone] Encounter Details Date Type Department Care Team (Late st Contact Info) Description 06/05/2024 Refill [facility] [address] [place] [address] Vika Castellanos DO [address] [place] [address] Anxiety state Allergies Active Allergy [...] MG Oral Tablet (Eliquis)Indication s: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),[facility] current use of anticoagulant therapy TAKE 1 [...] needed for Anxiety or Insomnia. 30 Tablet 06/05/2024 Active LORazepam 0.5 MG Oral Tablet (Ativan)Indications :Anxiety state Take 1 Tablet by mouth 2 times a day as needed for Anxiety or Insomnia. 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 0 06/30/2022 [...] Influenza, Split, I IV3, With Preserve, Inj 06/27/2015,07/16/2014,07/16/2013,1012/2011,08/09/2011,07/28/2010,06/26/20 09,07/22/2008,09/05/2007 TD, Preservative Free 07/22/2008 TDAP (age [...] Encounter - Vika Castellanos DO - 06/06/2024 8:22 AM EDTSigned Prescriptions: Disp Refills LORazepam 0.5 MG Oral Tablet (Ativan) 30 Tab*0 Sig: Take 1 Tablet by mouth 2 times a day as needed for Anxiety or Insomnia.Authorizing Provider: NICKI MARSH R- * Telephone Encounter - Savi Devlin LPN - 06/05/2024 3:29 PM EDT Did you pend patient's preferred pharmacy and medication before forwarding?yes [facility]: [id number] [address] [facility] Pending Prescriptions: Disp Refills LORazepam 0.5 [...] was the last refill date 05/16/2024 w/ quantity 30 and dosage .5 mg and Urine Drug Screen Not completed [...] 07/10/2024 10:30 AM EDT Office Visit Rheumatology [facility] [address] [employer] [place], [place] [address] Dru Crystal CRNP [address] [place] [address] 08/31/2024 11:20 AM EST Office Visit Neurology [facility] [address] [place] [address] Hung Ennis, [address] [place] [address] 09/26/2024 11:30 AM EST Office Visit Gastroenterology, [facility] [address] [address] Lacy Tompkins CRNP [address] [place] [address] Health Maintenance Due Date Last Done Comments [...] D LEVEL ONCE IN A LIFETIME-USE SMARTSET# [id number] Completed 07/07/2023, 03/25/2022, 11/16/2019, Additional history exists [...] unspecified documented in this encounter Care Teams Commissary Assistant Relationship Specialty Start Date End Date Vika Castellanos DO [address] [place] [address] PCP - General Family Medicine 05/22/12 documented as of this encounter
--- OUTSIDE RECORDS SUMMARY | 2024-06-17 17:40 | External Medical Summary | Summary of Care ---
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 04/19/2016 Active Tylenol PM Extra Strength 500-25 MG Oral Tablet (diphenhydrAMINE-APA P (sleep)) Take 1 Tablet by mouth daily as needed for Sleep. 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 FOR COUGH 90 Tablet 3 03/21/2024 Active Klor-Con M10 10 MEQ Oral Tablet Extended Release (potassium chloride ER) TAKE 1 TABLET BY MOUTH EVERY DAY 90 Tablet 3 04/12/2024 Active Gabapentin 300 MG Oral Capsule (Neurontin)Indicatio ns:New onset of headaches after age 50 TAKE 1 CAPSULE BY MOUTH TWICE DAILY 180 Capsule 1 04/12/2024 Active Escitalopram Oxalate 20 MG Oral Tablet (Lexapro)Indications :Anxiety state,Adjustment disorder with depressed mood TAKE 1 TABLET BY MOUTH EVERY DAY IN THE MORNING 90 Tablet 1 04/16/2024 Active LORazepam 0.5 MG Oral Tablet (Ativan)Indications: Anxiety state Take 1 Tablet by mouth 2 times a day as needed for Anxiety or Insomnia. 30 Tablet 05/16/2024 Active Vitamin D 125 MCG (5000 UT) Oral Capsule Take 5,000 Units by mouth daily first thing in the morning. Active Calcium 500 MG Oral Tablet Take 1 Tablet by mouth in the morning. 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 01/11/2024 Senile osteoporosis 07/07/2023 jail current use of anticoagulant therapy 0 06/30/2022 Recurrent pulmonary emboli 06/30/2022 Subclavian arterial stenosis 06/30/2022 Moderate episode of recurrent major depressive d isorder 03/25/2022 Pulmonary embolism and infarction 11/13/2020 Controlled substance agreement signed 08/04/2017 Parkinson's disease 08/04/2017 Dyslipidemia, goal LDL below 130 07/28/2010 SPINAL STENOSIS-LUMBAR S/P SURGERY 11/2612/31/19 CEREBROVASCULAR DZ, POST-STROKE 01/28/2009 Overview: Modified per CVA protocol #8 Benign neoplasm of colon 11/19/2008 Overview: hyperplastic /repeat colonoscopy in 3-5 yrs Adjustment disorder with depressed mood 09/23/20 08 Hypopotassemia 12/01/2007 Anxiety state 10/03/2007 Insomnia 10/03/2007 Overview: ICD-10 update of inactive term Esophageal reflux 07/05/2007 Hypothyroidism 05/02/2007 documented as of this encounter (statuses as of 05/31/2024) Resolved Problems Problem Noted Date Diagnosed Date [...] as of this encounter (statuses as of 05/31/2024) Immunizations Name Administration Dates Next Due COVID-19 [...] encounter Miscellaneous Notes * Telephone Encounter - Sarah Mo, [facility] - 05/31/2024 1:18 PM EDT Refused Prescriptions: Disp Refills Carbidopa-Levodopa 25-100 MG Oral Tablet (*270 Ta*1 Sig: TAKE 1 TABLET BY MOUTH THREE TIMES A DAYRefused By: SARAH MO for Refusal: Too soon------- * Telephone Encounter - Mya [place] - 05/30/2024 7:09 PM EDTPending Prescriptions: Disp Refills Carbidopa-Levodopa 25-100 MG Oral Tablet [*270 Ta*1 Sig: TAKE 1 TABLET BY MOUTH THREE TIMES A DAY * Telephone Encounter - Mya [place] - 05/30/2024 7:07 PM EDT Did you pend patient's preferred pharmacy and medication before forwarding?yes [id number] Pending Prescriptions: Disp Refills Carbidopa-Levodopa 25-100 MG Oral Tablet *270 Ta*1 Sig: TAKE 1 TABLET BY MOUTH THREE TIMES A DAY Last Visit: 02/23/2024 (in office), 02/15/2020 (telemedicine) Next Visit: 08/31/2024 If no future appointments scheduled, and last appointment is greater than a year ago, please schedule patient for a follow-up appointment Last date the medication was ordered: 02/23/2024 Is this request for a controlled substance?No Urine Drug Screen:No results found. However, due [...] 07/10/2024 10:30 AM EDT Office Visit Rheumatology [place] [address] [address] [place] [address] Dru Crystal CRNP [address] [place] [address] [place] [address] 08/31/2024 11:20 AM EST Office Visit Neurology [facility] [address] [facility] [place] [address] Hung Ennis, DO [address] [facility] [place] [address] 09/26/2024 11:30 AM EST Office Visit Gastroenterology, [facility] [address] [place] [address] [address] Lacy Tompkins CRNP [address] [place] [address] Health Maintenance Due Date Last Done Comments [...] D LEVEL ONCE IN A LIFETIME-USE SMARTSET# [id number] Completed 07/07/2023, 03/25/2022, 11/16/2019, Additional history exists [...] as of this encounter Visit Diagnoses Diagnosis Parkinson's disease without dyskinesia, 

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
--- NOTE | 2024-06-17 18:04 | Emergency Department Note ---
Impression & Plan Acute dyspnea, Hypomagnesemia ED Provider Note HISTORY OF PRESENT ILLNESS: Patient is an 84-year-old female presenting with sensation of "being hot" and shortness of breath. Patient reports for the last few days she has been feeling excessively overheated but does not have a measured fever at home. Reports that she has had some significant shortness of breath over the last few days, worse than her normal baseline. Reports shortness of breath is worse with any sort of exertion. She states she has intermittently had some substernal chest pain over the last few days. Denies chest pain currently. She reports that she has had a nonproductive cough, but reports this is baseline secondary to her Parkinson's disease. Denies any recent sick contact exposure. Denies any recent travel. She does have a history of pulmonary embolism and is on Eliquis. Denies any missed doses of her Eliquis. Denies any history of cardiac stents. ROS: as above PHYSICAL EXAM: Constitutional: Patient appears in no acute distress. HENT: Head: Normocephalic and atraumatic. Eyes: EOMI, PERRL Mouth/Throat: Mucous membranes moist. Neck: Trachea midline. Neck supple. Cardiovascular: RRR, No murmurs, rubs or gallops. Intact distal pulses. Pulmonary/Chest: No respiratory distress. Breath sounds clear and equal bilaterally. No wheezes or rales. Abdominal: Abdomen soft, no tenderness, rebound or guarding. Musculoskeletal: No edema, tenderness or deformity noted. Skin: Warm and dry. No rash, erythema, pallor or cyanosis Psychiatric: Appropriate mood and affect for situation. Neurological: Alert and keenly responsive. CN II-XII grossly intact, moving all extremities equally and fully. MDM: - Vitals signs showed hypertension. - History obtained via patient. History as above. - Chronic conditions affecting care: HLD; GERD; hypothyroidism; PE; HTN; hyperparathyroidism - Differential diagnoses include, but are not limited to: Congestive heart failure; acute coronary syndrome; COPD/asthma exacerbation; pulmonary edema; pulmonary embolism; pneumonia; pneumothorax; viral syndrome - Order placed for continuous cardiac monitoring. At this time, monitor showed rate of 84 bpm with normal sinus rhythm, per my interpretation. - External medical records reviewed. Endocrinology visit note dated 05/15/2024 was reviewed. Patient follows in their clinic for her hyperparathyroidism. - EKG interpreted by myself showed normal sinus rhythm. Rate 83 bpm. QT 380. No acute ischemic changes. - Laboratory workup interpreted by myself showed slight leukopenia (WBC 4.31); anemia (Hgb 9.0); normal PT/INR; stable electrolytes other than slight hypomagnesemia (Mg 1.6); normal troponin; elevated BNP (101) - Repeat troponin still within normal limits - Viral respiratory panel negative - VBG normal - CXR negative for pneumonia, per my interpretation - Patient's blood pressure was checked in both arms by nursing staff and there was notable difference between her left and right arms. CTA of the chest was obtained. Negative for any acute pathology. 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 - Unclear etiology for her symptoms at this time. Patient is quite concerned about her episodes of feeling very hot and sweaty and then getting chest pain and shortness of breath. She expresses concern about her ability to get in with her primary care provider for further testing and we will admit to hospitalist service for further evaluation and management. - Discussion was had with case consultant about patient's case and need for admission - Hospitalist, Dr. Schwarz, consulted for admission - Patient admitted to [facility] service for further evaluation and management. ASSESSMENT AND PLAN: Diagnosis: Acute dyspnea; hypomagnesemia Plan: Admit Past Med/Surg History Problem List (Updated 06/17/24 @ 22:27 by Daisy Correa MD) Hypomagnesemia (Acute) Acute dyspnea (Acute) Vitamin D deficiency Osteoporosis Height loss Hyperparathyroidism Gastroparesis Dysphagia Atypical chest pain Hypertension (Acute) Acute electrocardiogram changes (Acute) Pulmonary emboli (Acute) Parkinson disease Acute pulmonary embolism Hypothyroidism (Chronic) Anxiety (Chronic) Osteoarthritis (Chronic) Depression (Chronic) GERD (gastroesophageal reflux disease) (Chronic) Hyperlipidemia (Chronic) Medical History Lung nodule Mitral valve prolapse No significant family history Hypothyroidism Hyperlipidemia GERD (gastroesophageal reflux disease) Thoracic radiculopathy Cerebral vascular disease Surgical History S/P cholecystectomy S/P hysterectomy Status post arthroscopy of shoulder Previous back surgery S/P cholecystectomy S/P hysterectomy Family History Other Heart disease Parkinson disease Social History Smoking Status: Former smoker Cigarettes Per Day: 1 ppd for 20yr quit in 1979; Second Hand Exposure: No; Do You Dip or Chew Tobacco: No; Hx Alcohol Use: No Hx Substance Use: No Preferred Language: Urdu Communication Ability: Effective Impregnator Helper Required: No Beliefs That Will Affect Care: None marital status: / Current Living Situation: Alone Current Living Situation Comment: Grandson lives w/ patient. Son lives across the street. Feels Safe at Home: Yes Assistive Devices: Cane Allergies Allergies Allergy/AdvReac Type Severity Reaction Status Date / Time cyclobenzaprine Allergy Severe ANAPHYLAXIS Verified 06/17/24 18:32 Sulfa (Sulfonamide Allergy Severe Shortness Verified 06/17/24 18:32 Antibiotics) of Breath, Rash nitroglycerin AdvReac Mild Headache Verified 06/17/24 18:32 tolterodine AdvReac Mild DRY MOUTH Verified 06/17/24 18:32 Home Meds Home Medications Medication Instructions Recorded Confirmed carbidopa 25 mg-levodopa 100 mg 1 tab PO TID 03/02/19 06/17/24 tablet levothyroxine 50 mcg tablet 50 mcg PO DAILYBB 03/02/19 06/17/24 montelukast 10 mg tablet 10 mg PO QAM 03/02/19 06/17/24 ropinirole 1 mg tablet 1 mg PO HS 03/02/19 06/17/24 ondansetron HCl 4 mg tablet 4 mg PO BID 10/14/20 06/17/24 gabapentin 300 mg capsule 300 mg PO BID 10/15/20 06/17/24 potassium chloride 10 mEq 10 meq PO QAM 05/12/21 06/17/24 tablet,extended release(part/cryst) (Klor-Con M) diphenhydramine 25 1 tab PO HS PRN Sleep 06/23/22 06/17/24 mg-acetaminophen 500 mg tablet (Tylenol PM Extra Strength) apixaban 5 mg tablet (Eliquis) 5 mg PO BID 01/09/23 06/17/24 acetaminophen 325 mg tablet 325 - 650 mg PO DIRECTED PRN 06/17/24 06/17/24 (Tylenol) PAIN/FEVER atropine 1 % eye drops 1 - 2 drp sublingual DIRECTED 06/17/24 06/17/24 PRN DROOLING calcium carbonate 500 mg PO DAILY 06/17/24 06/17/24 cholecalciferol (vitamin D3) 125 125 mcg PO DAILY 06/17/24 06/17/24 mcg (5,000 unit) tablet (Vitamin D3) escitalopram oxalate 10 mg tablet 10 mg PO DAILY 06/17/24 06/17/24 lorazepam 0.5 mg tablet 0.5 mg PO BID PRN ANXIETY/INSOMNIA 06/17/24 06/17/24 omeprazole 40 mg capsule,delayed 40 mg PO QAM 06/17/24 06/17/24 release Previous Rx's Medication Instructions Recorded lisinopril 2.5 mg tablet 2.5 mg PO DAILY #30 tabs 01/11/23 Results & Data (ED) Vital Signs Vital Signs - 24 hr 06/17/24 17:37 06/17/24 17:48 06/17/24 17:48 Temperature 36.4 C L Temperature Source Temporal Artery Scan Pulse Rate 92 H Pulse Rate [Apical] Pulse Rate from SpO2 Sensor Respiratory Rate 16 Respiratory Effort / Characteristics Non-Labored Respiratory Depth Normal Respiratory Pattern Regular Blood Pressure 160/77 H Blood Pressure [Right Arm] Blood Pressure Mean 104 Blood Pressure Mean [Right Arm] Pulse Oximetry 96 95 Oxygen Delivery Method Room Air Room Air Room Air Sepsis Recent Fever Within 48 Hours No Sepsis New/Unexplained Change in Mental Status N/A Sepsis Action Taken by Nursing No Action Required 06/17/24 17:48 06/17/24 17:48 06/17/24 17:58 Temperature 36.7 C Temperature Source Oral Pulse Rate 84 Pulse Rate [Apical] 86 Pulse Rate from SpO2 Sensor Respiratory Rate 18 Respiratory Effort / Characteristics Non-Labored Respiratory Depth Normal Respiratory Pattern Blood Pressure Blood Pressure [Right Arm] 164/61 H Blood Pressure Mean Blood Pressure Mean [Right Arm] 95 Pulse Oximetry 96 96 Oxygen Delivery Method Room Air Room Air Sepsis Recent Fever Within 48 Hours Sepsis New/Unexplained Change in Mental Status Sepsis Action Taken by Nursing 06/17/24 18:03 06/17/24 18:05 06/17/24 18:12 Temperature Temperature Source Pulse Rate 82 79 Pulse Rate [Apical] Pulse Rate from SpO2 Sensor 81 79 Respiratory Rate 16 15 Respiratory Effort / Characteristics Respiratory Depth Respiratory Pattern Blood Pressure 96/62 L Blood Pressure [Right Arm] Blood Pressure Mean 72 Blood Pressure Mean [Right Arm] Pulse Oximetry 96 94 Oxygen Delivery Method Sepsis Recent Fever Within 48 Hours Sepsis New/Unexplained Change in Mental Status Sepsis Action Taken by Nursing 06/17/24 20:00 06/17/24 22:20 Temperature Temperature Source Pulse Rate Pulse Rate [Apical] 64 84 Pulse Rate from SpO2 Sensor Respiratory Rate 18 16 Respiratory Effort / Characteristics Respiratory Depth Respiratory Pattern Blood Pressure Blood Pressure [Right Arm] 123/81 114/104 H Blood Pressure Mean Blood Pressure Mean [Right Arm] 95 107 Pulse Oximetry 97 96 Oxygen Delivery Method Room Air Room Air Sepsis Recent Fever Within 48 Hours Sepsis New/Unexplained Change in Mental Status Sepsis Action Taken by Nursing Laboratory Data 06/17/24 18:02 06/17/24 18:02 Lab Results 06/17/24 06/17/24 06/17/24 Range/Units 18:02 18:07 20:49 WBC 4.31 L (4.8-10.8) K/ul RBC 3.38 L (4.20-5.40) M/uL Hgb 9.0 L (12.0-16.0) g/dl Hct 29.0 L (37.0-47.0) % MCV 85.8 (80.0-100.0) fL MCH 26.6 (25.0-34.0) pg MCHC 31.0 L (32.0-36.0) g/dL RDW Std Deviation 48.2 H (36.4-46.3) fL RDW Coeff of Arturo 15.5 H (11.5-14.5) % Plt Count 236 (130-400) K/uL MPV 9.1 L (9.4-12.4) fL Immature Gran % (Auto) 0.2 % Neut % (Auto) 54.0 % Lymph % (Auto) 34.1 % Camp % (Auto) 9.3 % Eos % (Auto) 1.9 % Baso % (Auto) 0.5 % Neut # (Auto) 2.33 (1.40-6.50) K/uL Lymph # (Auto) 1.47 (1.20-3.40) K/uL Camp # (Auto) 0.40 (0.11-0.59) K/uL Eos # (Auto) 0.08 (0.00-0.50) K/uL Baso # (Auto) 0.02 (0.00-0.20) K/uL Immature Gran # (Auto) 0.01 (0.01-0.20) K/uL PT 11.0 (9.0-12.0) Seconds INR 1.0 (0.9-1.1) VBG pH 7.40 (7.36-7.41) VBG pCO2 38 (38-50) mmHg VBG pO2 43 mmHg VBG HCO3 24 mmol/L VBG O2 Saturation 69.5 % VBG Base Excess -1.1 mEq/L Sodium 138 (136-145) mmol/L Potassium 4.2 (3.5-5.1) mmol/L Chloride 108 H (98-107) mmol/L Carbon Dioxide 23 (21-32) mmol/L Anion Gap 7 (3-11) BUN 12 (6-23) mg/dl Creatinine 0.85 (0.6-1.2) mg/dl Est Cr Clr Drug Dosing 34.8 ml/min Est GFR ( Amer) 72.9 ml/min Est GFR (Non-Af Amer) 62.9 ml/min BUN/Creatinine Ratio 14.1 (10-20) Glucose 77 (70-99(Fasting)) mg/dl Calcium 9.5 (8.6-10.3) mg/dl Magnesium 1.6 L (1.7-2.4) mg/dl Total Bilirubin 0.4 (0.2-1.0) mg/dl AST 14 (13-39) U/L ALT 3 L (7-52) U/L Alkaline Phosphatase 53 (34-104) U/L Troponin I High Sens 4.1 3.7 (0-14) pg/ml B-Natriuretic Peptide 101 H (0-100) pg/ml Total Protein 6.4 (6.0-8.3) gm/dl Albumin 4.0 (3.4-5.0) gm/dl Globulin 2.4 L (2.5-4.0) gm/dl Albumin/Globulin Ratio 1.7 (0.9-2) Urine Color Urine Appearance (Clear) Urine pH (4.5-7.5) Ur Specific [place] (1.000-1.030) Urine Protein (Negative) Urine Glucose (UA) (Negative) Urine Ketones (Negative) Urine Blood (Negative) Urine Nitrite (Negative) Urine Bilirubin (Negative) Urine Urobilinogen (Negative) Ur Leukocyte Esterase (Negative) Urine WBC (Auto) (0-5) /hpf Urine RBC (Auto) (0-2) /hpf U Hyaline Cast (Auto) (0-2) /lpf U Epithel Cells (Auto) (0-2) /hpf Urine Bacteria (Auto) (None Seen) Adenovirus (PCR) Not Detected (NotDetected) B. pertussis DNA (PCR) Not Detected (NotDetected) B.parapertussis DNA PCR Not Detected (NotDetected) C. pneumoniae DNA (PCR) Not Detected (NotDetected) Coronavirus OC43 (PCR) Not Detected (NotDetected) Coronavirus HKU1 (PCR) Not Detected (NotDetected) Coronavirus 229E (PCR) Not Detected (NotDetected) SARS-CoV-2 (PCR) Not Detected (NotDetected) Coronavirus NL63 (PCR) Not Detected (NotDetected) Human Metapneumovir PCR Not Detected (NotDetected) Influenza Type A (PCR) Not Detected (NotDetected) Influenza Type B (PCR) Not Detected (NotDetected) M. pneumoniae (PCR) Not Detected (NotDetected) Parainfluenza 1 (PCR) Not Detected (NotDetected) Parainfluenza 2 (PCR) Not Detected (NotDetected) Parainfluenza 3 (PCR) Not Detected (NotDetected) Parainfluenza 4 (PCR) Not Detected (NotDetected) RSV (PCR) Not Detected (NotDetected) Entero/Rhino (PCR) Not Detected (NotDetected) 06/17/24 Range/Units 21:59 WBC (4.8-10.8) K/ul RBC (4.20-5.40) M/uL Hgb (12.0-16.0) g/dl Hct (37.0-47.0) % MCV (80.0-100.0) fL MCH (25.0-34.0) pg MCHC (32.0-36.0) g/dL RDW Std Deviation (36.4-46.3) fL RDW Coeff of Arturo (11.5-14.5) % Plt Count (130-400) K/uL MPV (9.4-12.4) fL Immature Gran % (Auto) % Neut % (Auto) % Lymph % (Auto) % Camp % (Auto) % Eos % (Auto) % Baso % (Auto) % Neut # (Auto) (1.40-6.50) K/uL Lymph # (Auto) (1.20-3.40) K/uL Camp # (Auto) (0.11-0.59) K/uL Eos # (Auto) (0.00-0.50) K/uL Baso # (Auto) (0.00-0.20) K/uL Immature Gran # (Auto) (0.01-0.20) K/uL PT (9.0-12.0) Seconds INR (0.9-1.1) VBG pH (7.36-7.41) VBG pCO2 (38-50) mmHg VBG pO2 mmHg VBG HCO3 mmol/L VBG O2 Saturation % VBG Base Excess mEq/L Sodium (136-145) mmol/L Potassium (3.5-5.1) mmol/L Chloride (98-107) mmol/L Carbon Dioxide (21-32) mmol/L Anion Gap (3-11) BUN (6-23) mg/dl Creatinine (0.6-1.2) mg/dl Est Cr Clr Drug Dosing ml/min Est GFR ( Amer) ml/min Est GFR (Non-Af Amer) ml/min BUN/Creatinine Ratio (10-20) Glucose (70-99(Fasting)) mg/dl Calcium (8.6-10.3) mg/dl Magnesium (1.7-2.4) mg/dl Total Bilirubin (0.2-1.0) mg/dl AST (13-39) U/L ALT (7-52) U/L Alkaline Phosphatase (34-104) U/L Troponin I High Sens (0-14) pg/ml B-Natriuretic Peptide (0-100) pg/ml Total Protein (6.0-8.3) gm/dl Albumin (3.4-5.0) gm/dl Globulin (2.5-4.0) gm/dl Albumin/Globulin Ratio (0.9-2) Urine Color Yellow Urine Appearance Clear (Clear) Urine pH 5.5 (4.5-7.5) Ur Specific [place] > 1.045 H (1.000-1.030) Urine Protein Negative (Negative) Urine Glucose (UA) Negative (Negative) Urine Ketones Negative (Negative) Urine Blood Negative (Negative) Urine Nitrite Positive A (Negative) Urine Bilirubin Negative (Negative) Urine Urobilinogen Negative (Negative) Ur Leukocyte Esterase 1+ H (Negative) Urine WBC (Auto) 0-5 (0-5) /hpf Urine RBC (Auto) 0-2 (0-2) /hpf U Hyaline Cast (Auto) 0-2 (0-2) /lpf U Epithel Cells (Auto) 0-2 (0-2) /hpf Urine Bacteria (Auto) 4+ H (None Seen) Adenovirus (PCR) (NotDetected) B. pertussis DNA (PCR) (NotDetected) B.parapertussis DNA PCR (NotDetected) C. pneumoniae DNA (PCR) (NotDetected) Coronavirus OC43 (PCR) (NotDetected) Coronavirus HKU1 (PCR) (NotDetected) Coronavirus 229E (PCR) (NotDetected) SARS-CoV-2 (PCR) (NotDetected) Coronavirus NL63 (PCR) (NotDetected) Human Metapneumovir PCR (NotDetected) Influenza Type A (PCR) (NotDetected) Influenza Type B (PCR) (NotDetected) M. pneumoniae (PCR) (NotDetected) Parainfluenza 1 (PCR) (NotDetected) Parainfluenza 2 (PCR) (NotDetected) Parainfluenza 3 (PCR) (NotDetected) Parainfluenza 4 (PCR) (NotDetected) RSV (PCR) (NotDetected) Entero/Rhino (PCR) (NotDetected) Administered Medications Discontinued Medications Magnesium Sulfate/Dextrose (Magnesium Sulfate / D5w) 1 gm in 100 mls @ 100 mls/hr IV NOW STA Stop: 06/17/24 20:40 Last Infusion: 06/17/24 21:03 Dose: Infused Documented By: Admin: 06/17/24 19:54 Dose: 100 mls/hr Documented By: DELILAH Ioversol (Optiray 320 125ml) 119 ml IV ONCE ONE Stop: 06/17/24 18:44 Last Admin: 06/17/24 18:44 Dose: 119 ml Documented By: EDK Imaging Data Radiologist's Impression: Chest X-Ray 06/17/24 17:45 XR chest 1V portable CLINICAL HISTORY: Dyspnea. COMPARISON STUDY: Chest radiograph January 08, 2023. Chest CT January 09, 2023. FINDINGS: Lung volumes are normal. Lungs are clear. There is no pneumothorax or pleural effusion. Mild cardiomegaly is unchanged. Mediastinal contours are normal. There is no evidence for pulmonary edema. IMPRESSION: No acute cardiopulmonary findings. ACT 112: Negative or not required by law. Electronically signed by: Jose Maria Smith M.D. 06/17/2024 6:39 PM Chest CTA 06/17/24 18:26 CT ANGIOGRAPHY OF THE CHEST DISSECTION PROTOCOL CLINICAL HISTORY: chest pain; shortness of breath COMPARISON STUDY: Chest CT January 09, 2023. Chest radiograph performed earlier today. TECHNIQUE: Before and following the IV administration of 119 mL of Optiray, helical axial images of the chest were obtained. Maximal intensity projections and sagittal and coronal reformats were viewed on an independent 3D workstation. IV contrast was administered without complication. Automated exposure control was utilized for the study. A dose lowering technique was utilized adhering to the principles of ALARA. CT DOSE: 1124.98 mGy.cm FINDINGS: The caliber of the thoracic aorta is normal. There is no intramural hematoma or thoracic aortic dissection. There is moderate atherosclerotic plaque within the thoracic aorta. Heart is moderately enlarged. No pulmonary emboli are identified. There is no pericardial effusion. There is no thoracic lymphadenopathy. There is extensive calcified atherosclerotic plaque within the proximal left subclavian artery. This results in severe stenosis versus less likely occlusion with distal reconstitution, similar to prior CT of January 09, 2023. There is no pneumothorax or pleural effusion. Subpleural biapical opacities represent scarring. No consolidation to suggest pneumonia. No suspicious pulmonary nodules. IMPRESSION: 1. No thoracic aortic dissection. 2. No pulmonary emboli. 3. No acute intrathoracic findings. 4. Extensive calcified plaque within the proximal left subclavian artery. This results in severe stenosis versus less likely occlusion with distal reconstitution, similar to prior CT. ACT 112: Negative or not required by law. Electronically signed by: Jose Maria mSith M.D. 06/17/2024 7:14 PM Discharge Plan Visit Data Chief Complaint: Shortness of Breath/Dyspnea Stated Complaint: SOB ED Provider: Daisy Correa Discharge Problem: Acute dyspnea, Hypomagnesemia Forms Stand Alone Forms: My [facility] Prescriptions Prescriptions: No Action ropinirole 1 mg Tablet 1 mg PO HS levothyroxine 50 mcg tablet 50 mcg PO DAILYBB Rx Instructions: Take this medication at least 30 minutes before breakfast or any other medications montelukast 10 mg Tablet 10 mg PO QAM carbidopa-levodopa 25-100 mg Tablet 1 tab PO TID ondansetron HCl 4 mg tablet 4 mg PO BID gabapentin 300 mg capsule 300 mg PO BID diphenhydramine-acetaminophen [Tylenol PM Extra Strength] 25-500 mg Tablet 1 tab PO HS PRN (Reason: Sleep) potassium chloride [Klor-Con M10] 10 mEq tablet,ER particles/crystals 10 meq PO QAM Eliquis 5 mg tablet 5 mg PO BID lisinopril 2.5 mg Tablet 2.5 mg PO DAILY Qty: 30 0RF acetaminophen [Tylenol] 325 mg Tablet 325 - 650 mg PO DIRECTED PRN (Reason: PAIN/FEVER) lorazepam 0.5 mg tablet 0.5 mg PO BID PRN (Reason: ANXIETY/INSOMNIA) calcium carbonate [Calcium 500] 500 mg calcium (1,250 mg) Tablet 500 mg PO DAILY atropine 1 % drops 1 - 2 drp sublingual DIRECTED PRN (Reason: DROOLING) escitalopram oxalate 10 mg tablet 10 mg PO DAILY Rx Instructions: PER EXT MED HX-FILLED 06/07/24 FOR 90 DAYS/90 TABS. PER [facility]--20 MG TAB DAILY. cholecalciferol (vitamin D3) [Vitamin D3] 125 mcg (5,000 unit) Tablet 125 mcg PO DAILY omeprazole 40 mg capsule,delayed release(DR/EC) 40 mg PO QAM Referrals Referrals: Tracey Vides PA-C [Outside Practitioners] -
[2024-06-17 18:12] LABS: Base Excess VBG -1.1 mEq/L; HCO3 VBG 24 mmol/L; Oxygen Saturation VBG 69.5 %; PCO2 VBG 38 mmHg (38-50); PO2 VBG 43 mmHg
[2024-06-17 18:27] LABS: Basophils # (auto) 0.02 K/uL (0.00-0.20); Basophils % (auto) 0.5 %; Eosinophils # (auto) 0.08 K/uL (0.00-0.50); Eosinophils % (auto) 1.9 %; Immature Granulocytes # (auto) 0.01 K/uL (0.01-0.20); Immature Granulocytes % (auto) 0.2 %; Lymphocytes # (auto) 1.47 K/uL (1.20-3.40); Lymphocytes % (auto) 34.1 %; Mean Corpuscular Hemoglobin 26.6 pg (25.0-34.0); Mean Corpuscular Volume 85.8 fL (80.0-100.0); Mean Platelet Volume 9.1 fL (9.4-12.4); Monocytes % (auto) 9.3 %; Neutrophils # (auto) 2.33 K/uL (1.40-6.50); Platelet Count 236 K/uL (130-400); RDW Coefficient of Variation 15.5 % (11.5-14.5); RDW Standard Deviation 48.2 fL (36.4-46.3); Red Blood Count 3.38 M/uL (4.20-5.40); White Blood Count 4.31 K/ul (4.8-10.8)
[2024-06-17 18:35] LABS: Albumin Globulin Ratio 1.7 (0.9-2); BUN Creatinine Ratio 14.1 (10-20); Bilirubin,Total 0.4 mg/dl (0.2-1.0); Calcium 9.5 mg/dl (8.6-10.3); Creatinine Clr Calc Pharmacy 34.8 ml/min; Est GFR (African American) 72.9 ml/min; Est GFR (Non-African American) 62.9 ml/min; Globulin 2.4 gm/dl (2.5-4.0); Magnesium 1.6 mg/dl (1.7-2.4); Potassium 4.2 mmol/L (3.5-5.1); Total Protein 6.4 gm/dl (6.0-8.3)
--- NOTE | 2024-06-17 18:40 | XRay Report ---
XR chest 1V portable CLINICAL HISTORY: Dyspnea. COMPARISON STUDY: Chest radiograph January 08, 2023. Chest CT January 09, 2023. FINDINGS: Lung volumes are normal. Lungs are clear. There is no pneumothorax or pleural effusion. Mil d cardiomegaly is unchanged. Mediastinal contours are normal. There is no evidence for pulmonary renata a. IMPRESSION: No acute cardiopulmonary findings. ACT 112: Negative or not required by law. Electronically signed by: Jose Maria Smith M.D. 06/17/2024 6:39 PM
[2024-06-17 18:42] LABS: Troponin I High Sensitivity 4.1 pg/ml (0-14)
[2024-06-17] MEDS: OPTIRAY 320 125ml IV ONE (18:44)
[2024-06-17 19:04] LABS: Adenovirus PCR Not Detected (NotDetected); Bordetella parapertussis PCR Not Detected (NotDetected); Bordetella pertussis PCR Not Detected (NotDetected); Chlamydia pneumoniae PCR Not Detected (NotDetected); Coronavirus 229E PCR Not Detected (NotDetected); Coronavirus CoV-2 (COVID19)PCR Not Detected (NotDetected); Coronavirus HKU1 PCR Not Detected (NotDetected); Coronavirus NL63 PCR Not Detected (NotDetected); Coronavirus OC43PCR Not Detected (NotDetected); Human Metapneumovirus PCR Not Detected (NotDetected); Influenza A PCR Not Detected (NotDetected); Influenza B PCR Not Detected (NotDetected); Mycoplasma pneumoniae PCR Not Detected (NotDetected); Parainfluenza Virus 1 PCR Not Detected (NotDetected); Parainfluenza Virus 2 PCR Not Detected (NotDetected); Parainfluenza Virus 3 PCR Not Detected (NotDetected); Parainfluenza Virus 4 PCR Not Detected (NotDetected); Respiratory Syncytial VirusPCR Not Detected (NotDetected); Rhinovirus/Enterovirus PCR Not Detected (NotDetected)
--- NOTE | 2024-06-17 19:16 | CT Scan Report ---
CT ANGIOGRAPHY OF THE CHEST DISSECTION PROTOCOL CLINICAL HISTORY: chest pain; shortness of breath COMPARISON STUDY: Chest CT January 09, 2023. Chest radiograph performed earlier today. TECHNIQUE: Before and following the IV administration of 119 mL of Optiray, helical axial images of t he chest were obtained. Maximal intensity projections and sagittal and coronal reformats were viewed on an independent 3D workstation. IV contrast was administered without complication. Automated exp osure control was utilized for the study. A dose lowering technique was utilized adhering to the olivier [place]. CT DOSE: 1124.98 mGy.cm FINDINGS: The caliber of the thoracic aorta is normal. There is no intramural hematoma or thoracic a ortic dissection. There is moderate atherosclerotic plaque within the thoracic aorta. Heart is modera tely enlarged. No pulmonary emboli are identified. There is no pericardial effusion. There is no thor acic lymphadenopathy. There is extensive calcified atherosclerotic plaque within the proximal left cain bclavian artery. This results in severe stenosis versus less likely occlusion with distal reconstitut ion, similar to prior CT of January 09, 2023. There is no pneumothorax or pleural effusion. Subpleural biapical opacities represent scarring. No consolidation to suggest pneumonia. No suspicious pulmonary nodules. IMPRESSION: 1. No thoracic aortic dissection. 2. No pulmonary emboli. 3. No acute intrathoracic findings. 4. Extensive calcified plaque within the proximal left subclavian artery. This results in severe sten osis versus less likely occlusion with distal reconstitution, similar to prior CT. ACT 112: Negative or not required by law. Electronically signed by: Jose Maria Smith M.D. 06/17/2024 7:14 PM
[2024-06-17] MEDS: MAGNESIUM SULFATE / D5W 1 GM/100 ML BAG IV STA (19:54)
[2024-06-17 22:12] LABS: Appearance Urine Clear (Clear); Bacteria Urine Automated 4+ (None Seen); Bilirubin Urine Negative (Negative); Blood Urine Negative (Negative); Cast Urine Automated 0-2 /lpf (0-2); Color Urine Yellow; Epithelial Cell Urine Auto 0-2 /hpf (0-2); Glucose Urine UA Negative (Negative); Ketones Urine Negative (Negative); Leukocyte Esterase Urine 1+ (Negative); Nitrite Urine Positive (Negative); Protein Urine Negative (Negative); RBC Urine Automated 0-2 /hpf (0-2); Specific Gravity Urine > 1.045 (1.000-1.030); Urobilinogen Urine Negative (Negative); WBC Urine Automated 0-5 /hpf (0-5); pH Urine 5.5 (4.5-7.5)
[2024-06-17] MEDS: cefTRIAXone SODIUM 2,000 MG/50 ML BAG IV STA (23:33)
[2024-06-17] MEDS: diphenhydrAMINE Capsule 25 MG CAP PO STA (23:34)
[2024-06-17] MEDS: rOPINIRole HCL 1 MG TABLET PO STA (23:34)
--- NOTE | 2024-06-17 23:34 | History & Physical Report ---
Date of Service June 17, 2024 Assessment & Plan (1) Chest pain: Plan: 84-year-old female with past medical history significant for hypothyroidism, hyperlipidemia hypopotassemia, hyperlipidemia, history of recurrent pulmonary embolism and on Eliquis, history of subclavian artery stenosis, history of CVA, GERD, osteoporosis, Parkinson's disease with dyskinesia, anxiety, insomnia, depression, lumbar spinal stenosis s/p surgery, presents with profuse diaphor esis and also shortness of breath with exertion associated with chest pain. Patient states she is feeling profuse sweating today. And lately she was getting short of breath on exertion and whenever she is short of breath she is also getting chest pains. While resting she is okay. Denies any fevers. Has chronic occasional cough states because of Parkinson's. She is on slippery diet.States she feels fullness in the neck. Has some runny nose from her sinuses. Has some headache. Some dizziness. Vision is okay. No earache. No nausea. No abdominal pain. Normal bowel and bladder movements. Ambulates with a cane. Lives alone. Son lives close by. Currently hemodynamics are okay. Chest pain States shortness of breath upon exertion associated with chest pain While resting asymptomatic EKG showed accelerated junctional rhythm 2 sets of troponin negative CTA chest no acute findings except showing chronic severe left subclavian artery stenosis Will follow serial cardiac enzymes and echo and repeat EKG Will keep her n.p.o. Consult cardiology in a.m. for further recommendations Acute UTI Possible causing diaphoresis Empiric Rocephin Will follow the cultures Neck fullness Will follow CT soft tissue neck GERD/dysphagia From Parkinson's Follows with GI On PPI On soft slippery diet Currently n.p.o. Parkinson's Restless leg syndrome Orofacial dyskinesia On Sinemet 3 times daily, on gabapentin and Requip And atropine drops for drooling Ambulates with cane PT OT when stable Follows with neurology Anxiety Depression On Lexapro and and Ativan as needed Hyperparathyroidism Follows with Endo On vitamin D and calcium Osteoporosis Follows with rheumatology Hypothyroidism On Synthyroid Hypertension Lisinopril Hypopotassemia On potassium supplements History of recurrent PE On Eliquis History of CVA On Eliquis DVT prophylaxis Eliquis Disposition Med/telemetry Full code History of Present Illness Chief Complaint: Diaphoresis, shortness of breath and chest pain Primary Care Provider: Vika Castellanos DO 84-year-old female with past medical history significant for hypothyroidism, hyperlipidemia hypopotassemia, hyperlipidemia, history of recurrent pulmonary embolism and on Eliquis, history of subclavian artery stenosis, history of CVA, GERD, osteoporosis, Parkinson's disease with dyskinesia, anxiety, insomnia, depression, lumbar spinal stenosis s/p surgery, presents with profuse diaphoresi s and also shortness of breath with exertion associated with chest pain. Patient states she is feeling profuse sweating today. And lately she was getting short of breath on exertion and whenever she is short of breath she is also getting chest pains. While resting she is okay. Denies any fevers. Has chronic occasional cough states because of Parkinson's. She is on slippery diet.States she feels fullness in the neck. Has some runny nose from her sinuses. Has some headache. Some dizziness. Vision is okay. No earache. No nausea. No abdominal pain. Normal bowel and bladder movements. Ambulates with a cane. Lives alone. Son lives close by. Currently hemodynamics are okay. Past medical history. As mentioned above Past surgical history. Colonoscopy with biopsy. EGD. EGD with biopsy. Cholecystectomy. Shoulder arthroscopy. Total abdominal hysterectomy with removal of tubes. Right total knee replacement. Social history. . Quit smoking 1978. Smoked 0.5 packs a day for 35 years. No alcohol use. No drug use. Family history. Father had diabetes. Heart disorder. Mother had parkinsonism. Brother had colon cancer. Brother had CABG. Allergies Allergy/AdvReac Type Severity Reaction Status Date / Time cyclobenzaprine Allergy Severe ANAPHYLAXIS Verified 06/17/24 18:32 Sulfa (Sulfonamide Allergy Severe Shortness Verified 06/17/24 18:32 Antibiotics) of Breath, Rash nitroglycerin AdvReac Mild Headache Verified 06/17/24 18:32 tolterodine AdvReac Mild DRY MOUTH Verified 06/17/24 18:32 Home Medications Medication Instructions Recorded Confirmed Type carbidopa 25 mg-levodopa 100 mg 1 tab PO TID 03/02/19 06/17/24 History tablet levothyroxine 50 mcg tablet 50 mcg PO DAILYBB 03/02/19 06/17/24 History montelukast 10 mg tablet 10 mg PO QAM 03/02/19 06/17/24 History ropinirole 1 mg tablet 1 mg PO HS 03/02/19 06/17/24 History ondansetron HCl 4 mg tablet 4 mg PO BID 10/14/20 06/17/24 History gabapentin 300 mg capsule 300 mg PO BID 10/15/20 06/17/24 History potassium chloride 10 mEq 10 meq PO QAM 05/12/21 06/17/24 History tablet,extended release(part/cryst) (Klor-Con M) diphenhydramine 25 1 tab PO HS PRN Sleep 06/23/22 06/17/24 History mg-acetaminophen 500 mg tablet (Tylenol PM Extra Strength) apixaban 5 mg tablet (Eliquis) 5 mg PO BID 01/09/23 06/17/24 History lisinopril 2.5 mg tablet 2.5 mg PO DAILY #30 tabs 01/11/23 06/17/24 Rx acetaminophen 325 mg tablet 325 - 650 mg PO DIRECTED PRN 06/17/24 06/17/24 History (Tylenol) PAIN/FEVER atropine 1 % eye drops 1 - 2 drp sublingual DIRECTED 06/17/24 06/17/24 History PRN DROOLING calcium carbonate 500 mg PO DAILY 06/17/24 06/17/24 History cholecalciferol (vitamin D3) 125 125 mcg PO DAILY 06/17/24 06/17/24 History mcg (5,000 unit) tablet (Vitamin D3) escitalopram oxalate 10 mg tablet 10 mg PO DAILY 06/17/24 06/17/24 History lorazepam 0.5 mg tablet 0.5 mg PO BID PRN ANXIETY/INSOMNIA 06/17/24 06/17/24 History omeprazole 40 mg capsule,delayed 40 mg PO QAM 06/17/24 06/17/24 History release Past Med/Surg History Problem List (Updated 06/17/24 @ 23:26 by Brandon Schwarz MD) Chest pain Hypomagnesemia (Acute) Acute dyspnea (Acute) Vitamin D deficiency Osteoporosis Height loss Hyperparathyroidism Gastroparesis Dysphagia Atypical chest pain Hypertension (Acute) Acute electrocardiogram changes (Acute) Pulmonary emboli (Acute) Parkinson disease Acute pulmonary embolism Hypothyroidism (Chronic) Anxiety (Chronic) Osteoarthritis (Chronic) Depression (Chronic) GERD (gastroesophageal reflux disease) (Chronic) Hyperlipidemia (Chronic) Medical History Lung nodule Mitral valve prolapse No significant family history Hypothyroidism Hyperlipidemia GERD (gastroesophageal reflux disease) Thoracic radiculopathy Cerebral vascular disease Surgical History S/P cholecystectomy S/P hysterectomy Status post arthroscopy of shoulder Previous back surgery S/P cholecystectomy S/P hysterectomy Family History Other Heart disease Parkinson disease Social History Smoking Status: Former smoker Cigarettes Per Day: 1 ppd for 20yr quit in 1979; Second Hand Exposure: No; Do You Dip or Chew Tobacco: No; Hx Alcohol Use: No Hx Substance Use: No Preferred Language: Indonesian Communication Ability: Effective Outbound Call Center Representative Required: No Beliefs That Will Affect Care: None marital status: / Current Living Situation: Alone Current Living Situation Comment: son lives across street Feels Safe at Home: Yes Safety Concerns: Feels Safe At This Time Assistive Devices: Cane, Denture - Upper, Denture - Lower, Glasses, Hearing Aid - Bilateral and Walker Review of Systems Review of Systems: All systems reviewed & are unremarkable except as noted in HPI & below Physical Exam Physical Exam: General- Not in distress Head- atraumatic Eyes- PERRL, ENT- oropharynx clear Neck- supple, no JVD. Lungs- clear to auscultation no wheezing or crackles. Heart- regular rate and rhythm; no murmur, no gallop. Abdomen- normal bowel sounds, soft, nontender, no distension Extremities- no pretibial edema, no erythema seen. Neuro- alert, oriented PERRL, no facial palsy; no dysarthria; moves extremities Results & Data Results & Data Vital Signs (Past 12 Hours) Vital Signs Temp Pulse Pulse Resp BP BP Pulse Ox 06/17/24 22:20 84 16 114/104 H 96 06/17/24 20:00 64 18 123/81 97 06/17/24 18:12 79 15 94 06/17/24 18:05 96/62 L 06/17/24 18:03 82 16 96 06/17/24 17:58 84 06/17/24 17:48 96 06/17/24 17:48 36.7 C 86 18 164/61 H 96 06/17/24 17:48 95 06/17/24 17:48 06/17/24 17:37 36.4 C L 92 H 16 160/77 H 96 O2 Del Method 06/17/24 22:20 Room Air 06/17/24 20:00 Room Air 06/17/24 18:12 06/17/24 18:05 06/17/24 18:03 06/17/24 17:58 06/17/24 17:48 Room Air 06/17/24 17:48 Room Air 06/17/24 17:48 Room Air 06/17/24 17:48 Room Air 06/17/24 17:37 Room Air Diagnostic Findings Laboratory Results WBC 4.31 K/ul (4.8-10.8) L 06/17/24 18:02 RBC 3.38 M/uL (4.20-5.40) L 06/17/24 18:02 Hgb 9.0 g/dl (12.0-16.0) L 06/17/24 18:02 Hct 29.0 % (37.0-47.0) L 06/17/24 18:02 MCV 85.8 fL (80.0-100.0) 06/17/24 18:02 MCH 26.6 pg (25.0-34.0) 06/17/24 18:02 MCHC 31.0 g/dL (32.0-36.0) L 06/17/24 18:02 RDW Std Deviation 48.2 fL (36.4-46.3) H 06/17/24 18:02 RDW Coeff of Arturo 15.5 % (11.5-14.5) H 06/17/24 18:02 Plt Count 236 K/uL (130-400) 06/17/24 18:02 MPV 9.1 fL (9.4-12.4) L 06/17/24 18:02 Immature Gran % (Auto) 0.2 % 06/17/24 18:02 Neut % (Auto) 54.0 % 06/17/24 18:02 Lymph % (Auto) 34.1 % 06/17/24 18:02 [place] % (Auto) 9.3 % 06/17/24 18:02 Eos % (Auto) 1.9 % 06/17/24 18:02 Baso % (Auto) 0.5 % 06/17/24 18:02 Neut # (Auto) 2.33 K/uL (1.40-6.50) 06/17/24 18:02 Lymph # (Auto) 1.47 K/uL (1.20-3.40) 06/17/24 18:02 [place] # (Auto) 0.40 K/uL (0.11-0.59) 06/17/24 18:02 Eos # (Auto) 0.08 K/uL (0.00-0.50) 06/17/24 18:02 Baso # (Auto) 0.02 K/uL (0.00-0.20) 06/17/24 18:02 Immature Gran # (Auto) 0.01 K/uL (0.01-0.20) 06/17/24 18:02 PT 11.0 Seconds (9.0-12.0) 06/17/24 18: INR 1.0 (0.9-1.1) 06/17/24 18:02 VBG pH 7.40 (7.36-7.41) 06/17/24 18:02 VBG pCO2 38 mmHg (38-50) 06/17/24 18:02 VBG pO2 43 mmHg 06/17/24 18:02 VBG HCO3 24 mmol/L 06/17/24 18:02 VBG O2 Saturation 69.5 % 06/17/24 18:02 VBG Base Excess -1.1 mEq/L 06/17/24 18:02 Sodium 138 mmol/L (136-145) 06/17/24 18:02 Potassium 4.2 mmol/L (3.5-5.1) 06/17/24 18:02 Chloride 108 mmol/L (98-107) H 06/17/24 18:02 Carbon Dioxide 23 mmol/L (21-32) 06/17/24 18:02 Anion Gap 7 (3-11) 06/17/24 18:02 BUN 12 mg/dl (6-23) 06/17/24 18:02 Creatinine 0.85 mg/dl (0.6-1.2) 06/17/24 18:02 Est Cr Clr Drug Dosing 34.8 ml/min 06/17/24 18:02 Est GFR ( Amer) 72.9 ml/min 06/17/24 18:02 Est GFR (Non-Af Amer) 62.9 ml/min 06/17/24 18:02 BUN/Creatinine Ratio 14.1 (10-20) 06/17/24 18:02 Glucose 77 mg/dl (70-99(Fasting)) 06/17/24 18:02 Calcium 9.5 mg/dl (8.6-10.3) 06/17/24 18:02 Magnesium 1.6 mg/dl (1.7-2.4) L 06/17/24 18:02 Total Bilirubin 0.4 mg/dl (0.2-1.0) 06/17/24 18:02 AST 14 U/L (13-39) 06/17/24 18:02 ALT 3 U/L (7-52) L 06/17/24 18:02 Alkaline Phosphatase 53 U/L (34-104) 06/17/24 18:02 Troponin I High Sens 3.7 pg/ml (0-14) 06/17/24 20:49 B-Natriuretic Peptide 101 pg/ml (0-100) H 06/17/24 18:02 Total Protein 6.4 gm/dl (6.0-8.3) 06/17/24 18:02 Albumin 4.0 gm/dl (3.4-5.0) 06/17/24 18:02 Globulin 2.4 gm/dl (2.5-4.0) L 06/17/24 18:02 Albumin/Globulin Ratio 1.7 (0.9-2) 06/17/24 18:02 Urine Color Yellow 06/17/24 21:59 Urine Appearance Clear (Clear) 06/17/24 21:59 Urine pH 5.5 (4.5-7.5) 06/17/24 21:59 Ur Specific [place] > 1.045 (1.000-1.030) H 06/17/24 21:59 Urine Protein Negative (Negative) 06/17/24 21:59 Urine Glucose (UA) Negative (Negative) 06/17/24 21:59 Urine Ketones Negative (Negative) 06/17/24 21:59 Urine Blood Negative (Negative) 06/17/24 21:59 Urine Nitrite Positive (Negative) A 06/17/24 21:59 Urine Bilirubin Negative (Negative) 06/17/24 21:59 Urine Urobilinogen Negative (Negative) 06/17/24 21:59 Ur Leukocyte Esterase 1+ (Negative) H 06/17/24 21:59 Urine WBC (Auto) 0-5 /hpf (0-5) 06/17/24 21:59 Urine RBC (Auto) 0-2 /hpf (0-2) 06/17/24 21:59 U Hyaline Cast (Auto) 0-2 /lpf (0-2) 06/17/24 21:59 U Epithel Cells (Auto) 0-2 /hpf (0-2) 06/17/24 21:59 Urine Bacteria (Auto) 4+ (None Seen) H 06/17/24 21:59 Adenovirus (PCR) Not Detected (NotDetected) 06/17/24 18:07 B. pertussis DNA (PCR) Not Detected (NotDetected) 06/17/24 18:07 B.parapertussis DNA PCR Not Detected (NotDetected) 06/17/24 18:07 C. pneumoniae DNA (PCR) Not Detected (NotDetected) 06/17/24 18:07 Coronavirus OC43 (PCR) Not Detected (NotDetected) 06/17/24 18:07 Coronavirus HKU1 (PCR) Not Detected (NotDetected) 06/17/24 18:07 Coronavirus 229E (PCR) Not Detected (NotDetected) 06/17/24 18:07 SARS-CoV-2 (PCR) Not Detected (NotDetected) 06/17/24 18:07 Coronavirus NL63 (PCR) Not Detected (NotDetected) 06/17/24 18:07 Human Metapneumovir PCR Not Detected (NotDetected) 06/17/24 18:07 Influenza Type A (PCR) Not Detected (NotDetected) 06/17/24 18:07 Influenza Type B (PCR) Not Detected (NotDetected) 06/17/24 18:07 M. pneumoniae (PCR) Not Detected (NotDetected) 06/17/24 18:07 Parainfluenza 1 (PCR) Not Detected (NotDetected) 06/17/24 18:07 Parainfluenza 2 (PCR) Not Detected (NotDetected) 06/17/24 18:07 Parainfluenza 3 (PCR) Not Detected (NotDetected) 06/17/24 18:07 Parainfluenza 4 (PCR) Not Detected (NotDetected) 06/17/24 18:07 RSV (PCR) Not Detected (NotDetected) 06/17/24 18:07 Entero/Rhino (PCR) Not Detected (NotDetected) 06/17/24 18:07 Impressions Chest X-Ray 06/17/24 17:45 XR chest 1V portable CLINICAL HISTORY: Dyspnea. COMPARISON STUDY: Chest radiograph January 08, 2023. Chest CT January 09, 2023. FINDINGS: Lung volumes are normal. Lungs are clear. There is no pneumothorax or pleural effusion. Mild cardiomegaly is unchanged. Mediastinal contours are normal. There is no evidence for pulmonary edema. IMPRESSION: No acute cardiopulmonary findings. ACT 112: Negative or not required by law. Electronically signed by: Jose Maria Smith M.D. 06/17/2024 6:39 PM Chest CTA 06/17/24 18:26 CT ANGIOGRAPHY OF THE CHEST DISSECTION PROTOCOL CLINICAL HISTORY: chest pain; shortness of breath COMPARISON STUDY: Chest CT January 09, 2023. Chest radiograph performed earlier today. TECHNIQUE: Before and following the IV administration of 119 mL of Optiray, helical axial images of the chest were obtained. Maximal intensity projections and sagittal and coronal reformats were viewed on an independent 3D workstation. IV contrast was administered without complication. Automated exposure control was utilized for the study. A dose lowering technique was utilized adhering to the principles of ALARA. CT DOSE: 1124.98 mGy.cm FINDINGS: The caliber of the thoracic aorta is normal. There is no intramural hematoma or thoracic aortic dissection. There is moderate atherosclerotic plaque within the thoracic aorta. Heart is moderately enlarged. No pulmonary emboli are identified. There is no pericardial effusion. There is no thoracic lymphadenopathy. There is extensive calcified atherosclerotic plaque within the proximal left subclavian artery. This results in severe stenosis versus less likely occlusion with distal reconstitution, similar to prior CT of January 09, 2023. There is no pneumothorax or pleural effusion. Subpleural biapical opacities represent scarring. No consolidation to suggest pneumonia. No suspicious pulmonary nodules. IMPRESSION: 1. No thoracic aortic dissection. 2. No pulmonary emboli. 3. No acute intrathoracic findings. 4. Extensive calcified plaque within the proximal left subclavian artery. This results in severe stenosis versus less likely occlusion with distal elvira nstitution, similar to prior CT. ACT 112: Negative or not required by law. Electronically signed by: Jose Maria Smith M.D. 06/17/2024 7:14 PM ECG Additional Comments: ECG. Accelerated junctional rhythm with rate of 83. Code Status & VTE Plan VTE Prophylaxis Plan VTE Prophylaxis will be ordered: Yes
[2024-06-17] MEDS: APIXABAN 5 MG TABLET PO STA (23:35)
[2024-06-17] MEDS: GABAPENTIN 300 MG CAP PO STA (23:35)
[2024-06-17] MEDS: CARBIDOPA/LEVODOPA 25/100MG TAB PO STA (23:35)
[2024-06-18] MEDS ORDERED: ATROPINE SULFATE 1% OP SOLN 5 ML BTL SL PRN (00:08)
[2024-06-18] MEDS ORDERED: POLYETHYLENE (MIRALAX) 17 GM PACK PO PRN (00:08)
[2024-06-18] MEDS: ONDANSETRON ORAL SOLN 0.8 MG/1 ML PO STA (00:50)
[2024-06-18] MEDS: LORazepam 0.5 MG TAB PO PRN (00:56)
[2024-06-18] MEDS: ACETAMINOPHEN 325 MG TAB PO PRN (00:56)
[2024-06-18] MEDS: ONDANSETRON 4 MG OD TAB PO STA (00:59)
[2024-06-18] MEDS: ESCITALOPRAM OXALATE 10 MG TAB PO STA (01:15)
[2024-06-18] MEDS ORDERED: diphenhydrAMINE Capsule 25 MG CAP PO PRN (01:15)
[2024-06-18 05:54] LABS: Basophils # (auto) 0.03 K/uL (0.00-0.20); Basophils % (auto) 0.8 %; Eosinophils % (auto) 2.5 %; Hematocrit (blood only) 27.4 % (37.0-47.0); Hemoglobin 8.8 g/dl (12.0-16.0); Immature Granulocytes # (auto) 0.01 K/uL (0.01-0.20); Immature Granulocytes % (auto) 0.3 %; Lymphocytes # (auto) 1.57 K/uL (1.20-3.40); Lymphocytes % (auto) 39.6 %; Mean Corpuscular Hemoglobin 26.9 pg (25.0-34.0); Mean Corpuscular Hgb Conc 32.1 g/dL (32.0-36.0); Mean Corpuscular Volume 83.8 fL (80.0-100.0); Mean Platelet Volume 9.2 fL (9.4-12.4); Monocytes # (auto) 0.31 K/uL (0.11-0.59); Monocytes % (auto) 7.8 %; Neutrophils # (auto) 1.94 K/uL (1.40-6.50); Platelet Count 240 K/uL (130-400); RDW Coefficient of Variation 15.4 % (11.5-14.5); RDW Standard Deviation 47.1 fL (36.4-46.3); Red Blood Count 3.27 M/uL (4.20-5.40); White Blood Count 3.96 K/ul (4.8-10.8)
[2024-06-18 06:10] LABS: BUN Creatinine Ratio 12.3 (10-20); Calcium 8.6 mg/dl (8.6-10.3); Creatinine Clr Calc Pharmacy 36.5 ml/min; Est GFR (African American) 77.3 ml/min; Est GFR (Non-African American) 66.7 ml/min; Potassium 3.6 mmol/L (3.5-5.1)
[2024-06-18] MEDS: LEVOTHYROXINE SODIUM 50 MCG TABLET PO SCH (06:16)
[2024-06-18 06:17] LABS: Troponin I High Sensitivity 4.6 pg/ml (0-14)
[2024-06-18] MEDS: APIXABAN 5 MG TABLET PO SCH (07:58)
[2024-06-18] MEDS: CHOLECALCIFEROL 125 MCG (5,000 UNITS) TAB PO SCH (07:58)
[2024-06-18] MEDS: CARBIDOPA/LEVODOPA 25/100MG TAB PO SCH (07:58)
[2024-06-18] MEDS: PANTOprazole 40 MG TAB PO SCH (07:58)
[2024-06-18] MEDS: lisinopril 2.5 MG TAB PO SCH (07:58)
[2024-06-18] MEDS: ONDANSETRON 4 MG OD TAB PO SCH (07:58)
[2024-06-18] MEDS: MONTELUKAST SODIUM 10 MG TABLET PO SCH (07:58)
[2024-06-18] MEDS: CALCIUM CARBONATE 1250MG TAB PO SCH (07:58)
[2024-06-18] MEDS: GABAPENTIN 300 MG CAP PO SCH (07:59)
[2024-06-18] MEDS ORDERED: ESCITALOPRAM OXALATE 10 MG TAB PO SCH (09:00)
[2024-06-18] MEDS: POTASSIUM CHLORIDE 10 MEQ TABCR PO SCH (09:00)
--- NOTE | 2024-06-18 09:33 | Cardiology Consultation ---
Date of Consultation June 18, 2024 Assessment & Plan (1) Acute dyspnea: (2) Atypical chest pain: 84-year-old female with history of Parkinson's disease, chronic anticoagulation with Eliquis due to recurrent pulmonary emboli, left subclavian stenosis presents with worsening dyspnea on exertion and atypical chest pain. CT of the chest without acute intrathoracic findings. Serial high-sensitivity troponin levels negative. EKG without ischemic changes. Recommendations: * Advance diet * A resting echocardiogram has been requested and will be reviewed * Further recommendations will be forthcoming. History of Present Illness Attending Physician: Manoj Foley MD History of Present Illness Sera Gutiérrez is an 84-year-old female seen in cardiology consultation per the r equest of Dr Schwarz for evaluation of shortness of breath with exertion and chest discomfort. Patient describes heavy perspiration yesterday and feels very short of breath with walking minimal distances. When asked about chest pain, she minimalized, and described that her main concern was the heavy perspiration and shortness of breath. She also describes an ache in her left neck. Past Medical History: Her past medical history is notable for Parkinson's, hypothyroidism, hypertension, spinal stenosis. She is on therapy with Eliquis due to history of recurrent pulmonary embolism. CT angiogram performed on presentation revealed no pulmonary emboli or thoracic dissection. Extensive calcified plaque within the left proximal subclavian artery consistent with severe stenosis versus occlusion with distal reconstitution which is similar to the previous CT dating back to December,. Allergies Allergy/AdvReac Type Severity Reaction Status Date / Time cyclobenzaprine Allergy Severe ANAPHYLAXIS Verified 06/17/24 18:32 Sulfa (Sulfonamide Allergy Severe Shortness Verified 06/17/24 18:32 Antibiotics) of Breath, Rash nitroglycerin AdvReac Mild Headache Verified 06/17/24 18:32 tolterodine AdvReac Mild DRY MOUTH Verified 06/17/24 18:32 Home Medications Medication Instructions Recorded Confirmed Type carbidopa 25 mg-levodopa 100 mg 1 tab PO TID 03/02/19 06/17/24 History tablet levothyroxine 50 mcg tablet 50 mcg PO DAILYBB 03/02/19 06/17/24 History montelukast 10 mg tablet 10 mg PO QAM 03/02/19 06/17/24 History ropinirole 1 mg tablet 1 mg PO HS 03/02/19 06/17/24 History ondansetron HCl 4 mg tablet 4 mg PO BID 10/14/20 06/17/24 History gabapentin 300 mg capsule 300 mg PO BID 10/15/20 06/17/24 History potassium chloride 10 mEq 10 meq PO QAM 05/12/21 06/17/24 History tablet,extended release(part/cryst) (Klor-Con M) diphenhydramine 25 1 tab PO HS PRN Sleep 06/23/22 06/17/24 History mg-acetaminophen 500 mg tablet (Tylenol PM Extra Strength) apixaban 5 mg tablet (Eliquis) 5 mg PO BID 01/09/23 06/17/24 History lisinopril 2.5 mg tablet 2.5 mg PO DAILY #30 tabs 01/11/23 06/17/24 Rx acetaminophen 325 mg tablet 325 - 650 mg PO DIRECTED PRN 06/17/24 06/17/24 History (Tylenol) PAIN/FEVER atropine 1 % eye drops 1 - 2 drp sublingual DIRECTED 06/17/24 06/17/24 History PRN DROOLING calcium carbonate 500 mg PO DAILY 06/17/24 06/17/24 History cholecalciferol (vitamin D3) 125 125 mcg PO DAILY 06/17/24 06/17/24 History mcg (5,000 unit) tablet (Vitamin D3) escitalopram oxalate 10 mg tablet 10 mg PO DAILY 06/17/24 06/17/24 History lorazepam 0.5 mg tablet 0.5 mg PO BID PRN ANXIETY/INSOMNIA 06/17/24 06/17/24 History omeprazole 40 mg capsule,delayed 40 mg PO QAM 06/17/24 06/17/24 History release Patient History Medical History Lung nodule Mitral valve prolapse No significant family history Hypothyroidism Hyperlipidemia GERD (gastroesophageal reflux disease) Thoracic radiculopathy Cerebral vascular disease Surgical History S/P cholecystectomy S/P hysterectomy Status post arthroscopy of shoulder Previous back surgery S/P cholecystectomy S/P hysterectomy Family History Other Heart disease Parkinson disease Social History Smoking Status: Former smoker Cigarettes Per Day: 1 ppd for 20yr quit in 1979; Second Hand Exposure: No; Do You Dip or Chew Tobacco: No; Hx Alcohol Use: No Hx Substance Use: No Preferred Language: Faroese Communication Ability: Effective Director Of Safety Required: No Beliefs That Will Affect Care: None marital status: / Current Living Situation: Alone Current Living Situation Comment: son lives across street Feels Safe at Home: Yes Safety Concerns: Feels Safe At This Time Assistive Devices: Cane, Denture - Upper, Denture - Lower, Glasses, Hearing Aid - Bilateral and Walker Review of Systems Review of Systems: All systems reviewed & are unremarkable except as noted in HPI & below Physical Exam Physical Exam: General: no acute distress and stated age Eyes: conjunctiva are pink and non-injected, sclera clear Neck: normal jugular venous pulse, no hepatojugular reflux Chest: normal shape and normal respiratory effort Lungs: clear to auscultation and percussion Cardiac Exam: - regular heart sounds, no murmurs, rubs, or gallops, no jugular venous distention Abdomen: abdomen soft, non-tender, no abnormal masses and no hepatosplenomegaly Musculoskeletal: no gait disturbance, no weakness Extremities: no edema and no cyanosis Neuro:awake, conversant, follows commands, no focal motor deficits Psych: appropriate affect and insight. Results & Data Vital Signs (Past 12 Hours) Vital Signs Temp Pulse Pulse Pulse Resp BP Pulse Ox 06/18/24 08:40 70 06/18/24 07:31 36.5 C 70 17 149/74 H 93 06/18/24 04:08 36.8 C 72 16 106/58 L 95 06/18/24 00:42 06/18/24 00:16 36.6 C 75 18 167/81 H 97 06/18/24 00:15 75 06/17/24 23:40 71 18 125/79 96 06/17/24 22:20 84 16 114/104 H 96 O2 Del Method 06/18/24 08:40 06/18/24 07:31 Room Air 06/18/24 04:08 Room Air 06/18/24 00:42 Room Air 06/18/24 00:16 Room Air 06/18/24 00:15 06/17/24 23:40 Room Air 06/17/24 22:20 Room Air Laboratory Results Cardiac Enzymes 06/17/24 06/17/24 06/18/24 Range/Units 18:02 20:49 05:32 AST 14 (13-39) U/L Troponin I High Sens 4.1 3.7 4.6 (0-14) pg/ml B-Natriuretic Peptide 101 H (0-100) pg/ml Coagulation 06/17/24 Range/Units 18:02 PT 11.0 (9.0-12.0) Seconds B-Natriuretic Peptide 101 H (0-100) pg/ml CBC 06/17/24 06/18/24 Range/Units 18:02 05:32 WBC 4.31 L 3.96 L (4.8-10.8) K/ul RBC 3.38 L 3.27 L (4.20-5.40) M/uL Hgb 9.0 L 8.8 L (12.0-16.0) g/dl Hct 29.0 L 27.4 L (37.0-47.0) % Plt Count 236 240 (130-400) K/uL Neut # (Auto) 2.33 1.94 (1.40-6.50) K/uL Lymph # (Auto) 1.47 1.57 (1.20-3.40) K/uL Nicholas # (Auto) 0.40 0.31 (0.11-0.59) K/uL Eos # (Auto) 0.08 0.10 (0.00-0.50) K/uL Baso # (Auto) 0.02 0.03 (0.00-0.20) K/uL Comprehensive Metabolic Panel 06/17/24 06/18/24 Range/Units 18:02 05:32 Sodium 138 138 (136-145) mmol/L Potassium 4.2 3.6 (3.5-5.1) mmol/L Chloride 108 H 107 (98-107) mmol/L Carbon Dioxide 23 24 (21-32) mmol/L BUN 12 10 (6-23) mg/dl Creatinine 0.85 0.81 (0.6-1.2) mg/dl Glucose 77 84 (70-99(Fasting)) mg/dl Calcium 9.5 8.6 (8.6-10.3) mg/dl AST 14 (13-39) U/L ALT 3 L (7-52) U/L Alkaline Phosphatase 53 (34-104) U/L Total Protein 6.4 (6.0-8.3) gm/dl Albumin 4.0 (3.4-5.0) gm/dl Intake and Output 06/17/24 06/18/24 06/18/24 22:59 06:59 14:59 Intake Total 100 / 150 50 / 150 Output Total 150 / 150 Balance 100 / 0 -100 / 0 Intake: IV 100 / 150 50 / 150 Magnesium Sulfate / D5w 1 gm In 100 / 100 100 ml @ 100 mls/hr IV NOW STA Rx#:[id number] cefTRIAXone SODIUM 2,000 mg In 50 / 50 50 ml @ 100 mls/hr IV ONE STA Rx#:[id number] Output: Urine 150 / 150 Other: Other Intake Source npo Weight 53.9 kg 54 kg Weight Measurement Method Chair Scale Standing Scale proBNP performed 06/17/2024: 101 PG per mL Soft tissue CT of the neck without abnormality per radiology report Diagnostic Findings EKG performed 06/17/2024 and interpret independently: Sinus rhythm at 83 bpm, mild baseline artifact, minimal nonspecific repolarization abnormalities. Repeat tracing performed today 06/18/2024 interpreted independently: Sinus rhythm at 69 bpm, mild nonspecific T wave flattening noted diffusely, unchanged compared to previous with the exception that the baseline artifact noted on previous study is somewhat improved.
--- NOTE | 2024-06-18 09:36 | CT Scan Report ---
CT soft tissue neck wo con CT DOSE: CLINICAL HISTORY: neck fullness TECHNIQUE: Multiaxial CT images of the neck were performed without contrast. Sagittal and coronal ref ormations were performed at the workstation. A dose lowering technique was utilized adhering to the principles of ALARA. COMPARISON STUDY: CT cervical spine 04/07/2020. FINDINGS: The visualized brain parenchyma and orbits are unremarkable. The pterygopalatine fossa and paratracheal fat spaces are maintained. Prevertebral soft tissues and the epiglottis are normal in th ickness. The major because old airways services are intact. Biapical pleural-parenchymal scarlike den sities are noted. No acute fractures. Degenerative changes within the cervical spine. The paranasal s inuses and mastoid air cells are clear. The parotid and submandibular glands are symmetric. No mass, abscess, or lymphadenopathy identified within the neck. Carotid bifurcation calcifications are noted. IMPRESSION: No acute abnormality within the neck. ACT 112: Negative or not required by law. Electronically signed by: Dani Liz M.D. 06/18/2024 9:34 AM
--- NOTE | 2024-06-18 11:41 | Communication Note ---
Date of Service: June 18, 2024 ttecho revealed normal LV wall motion. Normal LVEF of 60-65% Normal RV chamber size and systolic function. Grade I diastolic dysfunction. Stable findings. Work up to this point reassuring. No further cardiac testing recommended at this time.
--- NOTE | 2024-06-18 13:55 | Hospitalist Progress Note ---
Date of Service June 18, 2024 Assessment & Plan (1) Chest pain: Plan: 84-year-old female with past medical history significant for hypothyroidism, hyperlipidemia hypopotassemia, hyperlipidemia, history of recurrent pulmonary embolism and on Eliquis, history of subclavian artery stenosis, history of CVA, GERD, osteoporosis, Parkinson's disease with dyskinesia, anxiety, insomnia, depression, lumbar spinal stenosis s/p surgery, presents with profuse diaphor esis and also shortness of breath with exertion associated with chest pain. Patient states she is feeling profuse sweating today. And lately she was getting short of breath on exertion and whenever she is short of breath she is also getting chest pains. While resting she is okay. Denies any fevers. Has chronic occasional cough states because of Parkinson's. She is on slippery diet.States she feels fullness in the neck. Has some runny nose from her sinuses. Has some headache. Some dizziness. Vision is okay. No earache. No nausea. No abdominal pain. Normal bowel and bladder movements. Ambulates with a cane. Lives alone. Son lives close by. Currently hemodynamics are okay. Chest pain States shortness of breath upon exertion associated with chest pain While resting asymptomatic EKG showed accelerated junctional rhythm 2 sets of troponin negative CTA chest no acute findings except showing chronic severe left subclavian artery stenosis Serial troponins were unremarkable and EKG did not show any significant abnormalities Echo of the heart showed normal LV wall motion with EF 60 to 65%, normal RV chamber size and systolic function, and grade 1 diastolic dysfunction Appreciate cardiology input and recommendation for not any more cardiac workup Remains stable from cardiac status Will get PT OT evaluation prior to discharge Acute UTI Possible causing diaphoresis Empiric Rocephin urine culture is growing gram-negative bacilli, further identification and sensitivities are pending Neck fullness Will follow CT soft tissue neck CT of the neck did not show any evidence of soft tissue abnormality GERD/dysphagia From Parkinson's Follows with GI On PPI On soft slippery diet Currently n.p.o. Parkinson's Restless leg syndrome Orofacial dyskinesia On Sinemet 3 times daily, on gabapentin and Requip And atropine drops for drooling Ambulates with cane PT OT when stable Follows with neurology Anxiety Depression On Lexapro and and Ativan as needed Hyperparathyroidism Follows with Endo On vitamin D and calcium Osteoporosis Follows with rheumatology Hypothyroidism On Synthyroid Hypertension Lisinopril Hypopotassemia On potassium supplements History of recurrent PE On Eliquis History of CVA On Eliquis DVT prophylaxis Eliquis Disposition Med/telemetry Full code Admission and Anticipated Discharge Date Admission Date: June 17, 2024 Subjective 06/18/2024 The patient was seen and examined in the medical telemetry unit She remains stable and denies any more chest pain and/or palpitation Her cardiac enzymes were unremarkable and echo did not show any evidence of wall motion abnormality with normal EF Has been tolerating regular diet Review of Systems Review of Systems: All systems reviewed and are unremarkable except as noted below Physical Exam Physical Exam: Lying in bed without any acute distress Constitutional: average body habitus; not ill appearing Eyes: PERRL, conjunctivae normal, anicteric sclerae ENMT: external ear and nose normal, oropharynx normal Neck: trachea midline, no thyromegaly Respiratory: no respiratory distress Auscultation: lungs clear to auscultation bilaterally and + crackles (Minimal crackles at the bases) Cardiovascular: Rate/Rhythm: regular rate and regular rhythm; not tachycardic Heart Sounds: normal S1 and normal S2; no murmur Extremities: no edema Gastrointestinal (Abdomen): Inspection/Auscultation: normal bowel sounds; abdomen not distended Percussion/Palpation: abdomen soft; abdomen nontender Musculoskeletal: No acute arthritis involving any of the joint Neurologic: normal touch/pain/proprioception and moves all extremities Lymphatic: no cervical or axillary lymphadenopathy Results & Data Results & Data Vital Signs (Past 12 Hours) Vital Signs Temp Pulse Pulse Resp BP Pulse Ox O2 Del Method 06/18/24 11:07 36.8 C 77 17 96/54 L 93 Room Air 06/18/24 08:40 70 06/18/24 07:31 36.5 C 70 17 149/74 H 93 Room Air 06/18/24 04:08 36.8 C 72 16 106/58 L 95 Room Air Laboratory Results Short CBC 06/17/24 06/18/24 Range/Units 18:02 05:32 WBC 4.31 L 3.96 L (4.8-10.8) K/ul Hgb 9.0 L 8.8 L (12.0-16.0) g/dl Hct 29.0 L 27.4 L (37.0-47.0) % Plt Count 236 240 (130-400) K/uL BMP 06/17/24 06/18/24 18:02 05:32 Sodium 138 138 Potassium 4.2 3.6 Chloride 108 H 107 Carbon Dioxide 23 24 BUN 12 10 Creatinine 0.85 0.81 Glucose 77 84 Calcium 9.5 8.6 Liver Function 06/17/24 Range/Units 18:02 Total Bilirubin 0.4 (0.2-1.0) mg/dl AST 14 (13-39) U/L ALT 3 L (7-52) U/L Alkaline Phosphatase 53 (34-104) U/L Albumin 4.0 (3.4-5.0) gm/dl Urine 06/17/24 Range/Units 21:59 Urine Color Yellow Urine Appearance Clear (Clear) Urine pH 5.5 (4.5-7.5) Ur Specific [place] > 1.045 H (1.000-1.030) Urine Protein Negative (Negative) Urine Glucose (UA) Negative (Negative) Medications Administered Current Inpatient Medications Acetaminophen (Acetaminophen 325 Mg Tab) 650 mg PO Q4H PRN PRN Reason: Pain or Fever Stop: 07/18/24 00:07 Last Admin: 06/18/24 00:56 Dose: 650 mg Apixaban (Apixaban 5 Mg Tablet) 5 mg PO BID [facility] Stop: 07/18/24 08:59 Last Admin: 06/18/24 07:58 Dose: 5 mg Atropine Sulfate (Atropine Sulfate 1% Op Soln 5 Ml Btl) 1 - 2 drops SL Q3H PRN PRN Reason: DROOLING Stop: 07/18/24 00:07 Calcium Carbonate (Calcium Carbonate 1250mg Tab) 1 tab PO DAILY [facility] Stop: 07/18/24 08:59 Last Admin: 06/18/24 07:58 Dose: 1 tab Carbidopa/Levodopa (Carbidopa/Levodopa 25/100mg Tab) 1 tab PO TID [facility] Stop: 07/18/24 08:59 Last Admin: 06/18/24 07:58 Dose: 1 tab Diphenhydramine HCl (Diphenhydramine Capsule 25 Mg Cap) 25 mg PO HS PRN PRN Reason: Sleep Stop: 07/18/24 01:14 Escitalopram Oxalate (Escitalopram Oxalate 10 Mg Tab) 10 mg PO HS [facility] Stop: 07/18/24 20:59 Gabapentin (Gabapentin 300 Mg Cap) 300 mg PO BID [facility] Stop: 07/18/24 08:59 Last Admin: 06/18/24 07:59 Dose: 300 mg Ceftriaxone Sodium (Rocephin) 2,000 mg in 50 mls @ 100 mls/hr IV Q24H [facility] Stop: 06/28/24 21:59 Levothyroxine Sodium (Levothyroxine Sodium 50 Mcg Tablet) 50 mcg PO DAILYBB [facility] Stop: 07/18/24 06:29 Last Admin: 06/18/24 06:16 Dose: 50 mcg Lisinopril (Lisinopril 2.5 Mg Tab) 2.5 mg PO DAILY [facility] Stop: 07/18/24 08:59 Last Admin: 06/18/24 07:58 Dose: 2.5 mg Lorazepam (Lorazepam 0.5 Mg Tab) 0.5 mg PO BID PRN PRN Reason: ANXIETY/INSOMNIA Stop: 07/18/24 00:07 Last Admin: 06/18/24 00:56 Dose: 0.5 mg Montelukast Sodium (Montelukast Sodium 10 Mg Tablet) 10 mg PO QAM [facility] Stop: 07/18/24 08:59 Last Admin: 06/18/24 07:58 Dose: 10 mg Nitroglycerin (Nitroglycerin Sl 0.4 Mg/Tab Tab) 0.4 mg SL Q5M PRN PRN Reason: Chest Pain Stop: 07/18/24 00:07 Ondansetron HCl (Ondansetron 4 Mg Od Tab) 4 mg PO BID [facility] Stop: 07/18/24 08:59 Last Admin: 06/18/24 07:58 Dose: 4 mg Pantoprazole Sodium (Pantoprazole 40 Mg Tab) 40 mg PO QAM [facility] Stop: 07/18/24 08:59 Last Admin: 06/18/24 07:58 Dose: 40 mg Polyethylene Glycol (Polyethylene (Miralax) 17 Gm Pack) 17 gm PO DAILY PRN PRN Reason: Constipation Stop: 07/18/24 00:07 Potassium Chloride (Potassium Chloride 10 Meq Tabcr) 10 meq PO QAM [facility] Stop: 07/18/24 08:59 Last Admin: 06/18/24 09:00 Dose: 10 meq Ropinirole HCl (Ropinirole Hcl 1 Mg Tablet) 1 mg PO HS [facility] Stop: 07/18/24 20:59 Vitamin D (Cholecalciferol 125 Mcg (5,000 Units) Tab) 125 mcg PO DAILY [facility] Stop: 07/18/24 08:59 Last Admin: 06/18/24 07:58 Dose: 125 mcg
[2024-06-18] MEDS: rOPINIRole HCL 1 MG TABLET PO SCH (20:17)
[2024-06-18] MEDS: ESCITALOPRAM OXALATE 10 MG TAB PO SCH (20:17)
--- NOTE | 2024-06-18 21:33 | Electrocardiogram Report ---
Test Reason : Blood Pressure : */* mmHG Vent. Rate : 83 BPM Atrial Rate : * BPM P-R Int : * ms QRS Dur : 80 ms QT Int : 380 ms P-R-T Axes : * 43 44 degrees QTcB Int : 446 ms Normal sinus rhythm When compared with ECG of 10-Jan-2023 23:31, QT has shortened Confirmed by Luis Martin ([id number]) on 06/18/2024 9:33:21 PM Referred By: Confirmed By: Luis Martin
--- NOTE | 2024-06-18 21:34 | Electrocardiogram Report ---
Test Reason : Blood Pressure : */* mmHG Vent. Rate : 69 BPM Atrial Rate : 69 BPM P-R Int : 196 ms QRS Dur : 84 ms QT Int : 444 ms P-R-T Axes : 62 44 49 degrees QTcB Int : 475 ms Poor data quality, interpretation may be adversely affected Normal sinus rhythm Nonspecific T wave abnormality Abnormal ECG When compared with ECG of 17-Jun-2024 17:46, No significant change Confirmed by Luis Martin ([id number]) on 06/18/2024 9:34:04 PM Referred By: REFERRED SELF Confirmed By: Luis Martin
[2024-06-18] MEDS: cefTRIAXone SODIUM 2,000 MG/50 ML BAG IV SCH (21:54)
[2024-06-19 06:30] LABS: Basophils # (auto) 0.03 K/uL (0.00-0.20); Basophils % (auto) 0.5 %; Eosinophils # (auto) 0.11 K/uL (0.00-0.50); Hematocrit (blood only) 29.8 % (37.0-47.0); Hemoglobin 9.6 g/dl (12.0-16.0); Immature Granulocytes # (auto) 0.02 K/uL (0.01-0.20); Immature Granulocytes % (auto) 0.4 %; Lymphocytes # (auto) 1.25 K/uL (1.20-3.40); Lymphocytes % (auto) 22.7 %; Mean Corpuscular Hemoglobin 27.1 pg (25.0-34.0); Mean Corpuscular Hgb Conc 32.2 g/dL (32.0-36.0); Mean Corpuscular Volume 84.2 fL (80.0-100.0); Mean Platelet Volume 8.8 fL (9.4-12.4); Monocytes # (auto) 0.38 K/uL (0.11-0.59); Monocytes % (auto) 6.9 %; Neutrophils # (auto) 3.72 K/uL (1.40-6.50); Neutrophils % (auto) 67.5 %; Platelet Count 256 K/uL (130-400); RDW Coefficient of Variation 15.5 % (11.5-14.5); Red Blood Count 3.54 M/uL (4.20-5.40); White Blood Count 5.51 K/ul (4.8-10.8)
[2024-06-19 06:52] LABS: BUN Creatinine Ratio 18.8 (10-20); Calcium 8.4 mg/dl (8.6-10.3); Creatinine Clr Calc Pharmacy 34.6 ml/min; Est GFR (African American) 72.9 ml/min; Est GFR (Non-African American) 62.9 ml/min; Magnesium 1.7 mg/dl (1.7-2.4); Potassium 3.9 mmol/L (3.5-5.1)
[2024-06-19] MEDS: NITROGLYCERIN SL 0.4 MG/TAB TAB SL PRN (08:00)
[2024-06-19] MEDS: lisinopril 5 MG TAB PO SCH (09:05)
[2024-06-19 09:13] LABS: Troponin I High Sensitivity 4.8 pg/ml (0-14)
[2024-06-19 09:30] LABS: Folate (Folic Acid),Ser orPlas 4.56 ng/ml (>5.38)
--- NOTE | 2024-06-19 13:39 | Hospitalist Progress Note ---
Date of Service June 19, 2024 Assessment & Plan (1) Chest pain: Plan: 84-year-old female with past medical history significant for hypothyroidism, hyperlipidemia hypopotassemia, hyperlipidemia, history of recurrent pulmonary embolism and on Eliquis, history of subclavian artery stenosis, history of CVA, GERD, osteoporosis, Parkinson's disease with dyskinesia, anxiety, insomnia, depression, lumbar spinal stenosis s/p surgery, presents with profuse diaphor esis and also shortness of breath with exertion associated with chest pain. Patient states she is feeling profuse sweating today. And lately she was getting short of breath on exertion and whenever she is short of breath she is also getting chest pains. While resting she is okay. Denies any fevers. Has chronic occasional cough states because of Parkinson's. She is on slippery diet.States she feels fullness in the neck. Has some runny nose from her sinuses. Has some headache. Some dizziness. Vision is okay. No earache. No nausea. No abdominal pain. Normal bowel and bladder movements. Ambulates with a cane. Lives alone. Son lives close by. Currently hemodynamics are okay. Chest pain States shortness of breath upon exertion associated with chest pain While resting asymptomatic EKG showed accelerated junctional rhythm 2 sets of troponin negative CTA chest no acute findings except showing chronic severe left subclavian artery stenosis Serial troponins were unremarkable and EKG did not show any significant abnormalities Echo of the heart showed normal LV wall motion with EF 60 to 65%, normal RV chamber size and systolic function, and grade 1 diastolic dysfunction Appreciate cardiology input and recommendation for not any more cardiac workup Remains stable from cardiac status, feel likely MSK in origin Will get PT OT evaluation prior to discharge Acute UTI Possible causing diaphoresis Empiric Rocephin Urine culture growing abel sensitive E. coli will de escalate upon discharge Neck fullness Will follow CT soft tissue neck CT of the neck did not show any evidence of soft tissue abnormality GERD/dysphagia From Parkinson's Follows with GI On PPI On soft slippery diet Parkinson's Restless leg syndrome Orofacial dyskinesia On Sinemet bid, on gabapentin and Requip And atropine drops for drooling Ambulates with cane PT OT when stable Follows with neurology Anemia may be causing SOB, hgb 9.6 and stable anemia panel reveals low iron and folate will give IV venofer x 1 today and start folic acid supplement iron 33, t sat 9%, folate 4.56 Anxiety Depression On Lexapro and and Ativan as needed Hyperparathyroidism Follows with Endo On vitamin D and calcium Osteoporosis Follows with rheumatology Hypothyroidism On Synthyroid Hypertension Lisinopril Hypopotassemia On potassium supplements History of recurrent PE On Eliquis History of CVA On Eliquis DVT prophylaxis Eliquis Disposition Med/telemetry Full code A total of 55 minutes was spent coordinating, documenting, and providing care for this patient excluding time spent in the performance of separately billed services. This included personally viewing all current laboratories and imaging studies, medication reconciliation, outpatient chart review, and discussion with specialists. Admission and Anticipated Discharge Date Admission Date: June 17, 2024 Supervising Physician Co-Signing Physician Notes Attending addendum: The patient was seen and examined in medical telemetry unit She has had chest pain earlier this morning but her EKG and troponins are unremarkable Denies any more symptoms during my examination Will need to have PT and OT evaluation prior to discharge On examination Lying in bed without any acute distress Hemodynamically stable Other systemic examinations unremarkable All labs, medications and imaging studies reviewed Likely has been noncardiac chest pain, UTI with history of Parkinson disease Iron deficiency anemia, will start Venofer and ferrous sulfate orally Reviewed with assessment plan as outlined above by Jacinta Cody PA-C and take the full responsibility of the care Total time spent in talking to the patient, examining and documentation was [address] Mickie Foley Subjective Pt was seen and examined in room 262-1. F/U CP She had an episode of chest pain this morning when she was trying to roll over. It was a sharp jolting pain that started underneath her armpit and radiated to her right side and her neck. It was reproducible with arm movement. It was not associated with SOB/nausea or diaphoresis. She denies f/c/s, chest pain, sob, n/v/d. Review of Systems Review of Systems: All systems reviewed & are unremarkable except as noted in HPI & below Physical Exam Physical Exam: Gen: WD/WN, NAD, A&O x3 HEENT: Normocephalic, atraumatic, conjunctivae moist, sclerae anicteric, mucous membranes moist. Lung: Clear to Auscultation bilaterally, no wheezes/rales/rhonchi Heart: Regular rate, regular rhythm, no murmurs, rubs, or gallops + reproducible chest pain Abdomen: Soft, NT, ND +BS x 4 Extremities: No edema Skin: Warm, no rash, negative turgor. Results & Data Results & Data Vital Signs (Past 12 Hours) Vital Signs Temp Pulse Pulse Resp BP Pulse Ox O2 Del Method 06/19/24 11:20 36.7 C 84 16 109/61 98 Room Air 06/19/24 08:59 80 16 151/74 H 92 Room Air 06/19/24 08:00 Room Air 06/19/24 07:58 36.7 C 82 16 190/82 H 94 Room Air 06/19/24 07:43 36.4 C L 86 20 166/70 H 94 Room Air 06/19/24 07:00 81 06/19/24 04:21 128 H 06/19/24 03:00 36.8 C 81 18 150/70 H 93 Room Air Laboratory Results Short CBC 06/19/24 Range/Units 06:02 WBC 5.51 (4.8-10.8) K/ul Hgb 9.6 L (12.0-16.0) g/dl Hct 29.8 L (37.0-47.0) % Plt Count 256 (130-400) K/uL BMP 06/19/24 06:02 Sodium 138 Potassium 3.9 Chloride 107 Carbon Dioxide 23 BUN 16 Creatinine 0.85 Glucose 94 Calcium 8.4 L Medications Administered Current Inpatient Medications Acetaminophen (Acetaminophen 325 Mg Tab) 650 mg PO Q4H PRN PRN Reason: Pain or Fever Stop: 07/18/24 00:07 Last Admin: 06/19/24 09:03 Dose: 650 mg Apixaban (Apixaban 5 Mg Tablet) 5 mg PO BID [facility] Stop: 07/18/24 08:59 Last Admin: 06/19/24 09:05 Dose: 5 mg Atropine Sulfate (Atropine Sulfate 1% Op Soln 5 Ml Btl) 1 - 2 drops SL Q3H PRN PRN Reason: DROOLING Stop: 07/18/24 00:07 Calcium Carbonate (Calcium Carbonate 1250mg Tab) 1 tab PO DAILY [facility] Stop: 07/18/24 08:59 Last Admin: 06/19/24 09:04 Dose: 1 tab Carbidopa/Levodopa (Carbidopa/Levodopa 25/100mg Tab) 1 tab PO BID@0800,1600 [facility] Stop: 07/19/24 15:59 Diphenhydramine HCl (Diphenhydramine Capsule 25 Mg Cap) 25 mg PO HS PRN PRN Reason: Sleep Stop: 07/18/24 01:14 Escitalopram Oxalate (Escitalopram Oxalate 10 Mg Tab) 10 mg PO HS [facility] Stop: 07/18/24 20:59 Last Admin: 06/18/24 20:17 Dose: 10 mg Folic Acid (Folic Acid 1 Mg Tab) 1 mg PO QAM [facility] Stop: 07/19/24 13:44 Gabapentin (Gabapentin 300 Mg Cap) 300 mg PO BID [facility] Stop: 07/18/24 08:59 Last Admin: 06/19/24 09:04 Dose: 300 mg Ceftriaxone Sodium (Rocephin) 2,000 mg in 50 mls @ 100 mls/hr IV Q24H [facility] Stop: 06/28/24 21:59 Last Infusion: 06/18/24 22:24 Dose: Infused Magnesium Sulfate/Dextrose (Magnesium Sulfate / D5w) 1 gm in 100 mls @ 50 mls/hr IV ONE ONE Stop: 06/19/24 15:44 Levothyroxine Sodium (Levothyroxine Sodium 50 Mcg Tablet) 50 mcg PO DAILYBB [facility] Stop: 07/18/24 06:29 Last Admin: 06/19/24 06:07 Dose: 50 mcg Lisinopril (Lisinopril 5 Mg Tab) 5 mg PO DAILY [facility] Stop: 07/19/24 08:59 Last Admin: 06/19/24 09:05 Dose: 5 mg Lorazepam (Lorazepam 0.5 Mg Tab) 0.5 mg PO BID PRN PRN Reason: ANXIETY/INSOMNIA Stop: 07/18/24 00:07 Last Admin: 06/19/24 09:03 Dose: 0.5 mg Montelukast Sodium (Montelukast Sodium 10 Mg Tablet) 10 mg PO QAM [facility] Stop: 07/18/24 08:59 Last Admin: 06/19/24 09:04 Dose: 10 mg Nitroglycerin (Nitroglycerin Sl 0.4 Mg/Tab Tab) 0.4 mg SL Q5M PRN PRN Reason: Chest Pain Stop: 07/18/24 00:07 Last Admin: 06/19/24 08:00 Dose: 0.4 mg Ondansetron HCl (Ondansetron 4 Mg Od Tab) 4 mg PO BID [facility] Stop: 07/18/24 08:59 Last Admin: 06/19/24 09:04 Dose: 4 mg Pantoprazole Sodium (Pantoprazole 40 Mg Tab) 40 mg PO QAM [facility] Stop: 07/18/24 08:59 Last Admin: 06/19/24 09:03 Dose: 40 mg Polyethylene Glycol (Polyethylene (Miralax) 17 Gm Pack) 17 gm PO DAILY PRN PRN Reason: Constipation Stop: 07/18/24 00:07 Potassium Chloride (Potassium Chloride 10 Meq Tabcr) 10 meq PO QAM [facility] Stop: 07/18/24 08:59 Last Admin: 06/19/24 09:02 Dose: 10 meq Ropinirole HCl (Ropinirole Hcl 1 Mg Tablet) 1 mg PO HS [facility] Stop: 07/18/24 20:59 Last Admin: 06/18/24 20:17 Dose: 1 mg Vitamin D (Cholecalciferol 125 Mcg (5,000 Units) Tab) 125 mcg PO DAILY [facility] Stop: 07/18/24 08:59 Last Admin: 06/19/24 09:04 Dose: 125 mcg
[2024-06-19] MEDS: MAGNESIUM SULFATE / D5W 1 GM/100 ML BAG IV ONE (14:02)
[2024-06-19] MEDS: FOLIC ACID 1 MG TAB PO SCH (14:02)
--- NOTE | 2024-06-19 16:06 | Electrocardiogram Report ---
Test Reason : Blood Pressure : */* mmHG Vent. Rate : 80 BPM Atrial Rate : 80 BPM P-R Int : 186 ms QRS Dur : 88 ms QT Int : 414 ms P-R-T Axes : 53 46 49 degrees QTcB Int : 477 ms Poor data quality, interpretation may be adversely affected Normal sinus rhythm Nonspecific T wave abnormality Abnormal ECG When compared with ECG of 18-Jun-2024 06:11, No significant change was found Confirmed by Abran Christianson ([id number]) on 06/19/2024 4:06:05 PM Referred By: REFERRED SELF Confirmed By: Abran Christianson
--- NOTE | 2024-06-19 16:06 | Electrocardiogram Report ---
Test Reason : Blood Pressure : */* mmHG Vent. Rate : 85 BPM Atrial Rate : 85 BPM P-R Int : 210 ms QRS Dur : 80 ms QT Int : 378 ms P-R-T Axes : 62 55 69 degrees QTcB Int : 449 ms Sinus rhythm with 1st degree A-V block Otherwise normal ECG When compared with ECG of 19-Jun-2024 05:11, (unconfirmed) No significant change was found Confirmed by Abran Christianson ([id number]) on 06/19/2024 4:06:15 PM Referred By: REFERRED SELF Confirmed By: Abran Christianson
[2024-06-19] MEDS: IRON SUCROSE 300 MG in SODIUM CHLORIDE 0.9% 250 ML IV ONE (16:10)
[2024-06-19] MEDS: CARBIDOPA/LEVODOPA 25/100MG TAB PO SCH (16:25)
[2024-06-20 08:44] LABS: Basophils # (auto) 0.05 K/uL (0.00-0.20); Basophils % (auto) 0.9 %; Eosinophils # (auto) 0.16 K/uL (0.00-0.50); Hematocrit (blood only) 36.4 % (37.0-47.0); Immature Granulocytes # (auto) 0.02 K/uL (0.01-0.20); Immature Granulocytes % (auto) 0.4 %; Lymphocytes # (auto) 1.61 K/uL (1.20-3.40); Lymphocytes % (auto) 30.4 %; Mean Corpuscular Hemoglobin 26.3 pg (25.0-34.0); Mean Corpuscular Hgb Conc 30.2 g/dL (32.0-36.0); Mean Corpuscular Volume 86.9 fL (80.0-100.0); Mean Platelet Volume 9.2 fL (9.4-12.4); Monocytes # (auto) 0.37 K/uL (0.11-0.59); Neutrophils # (auto) 3.09 K/uL (1.40-6.50); Neutrophils % (auto) 58.3 %; Nucleated RBC # (auto) 0.02 K/uL (0.00-0.12); Nucleated RBC % (auto) 0.4 %; Platelet Count 284 K/uL (130-400); RDW Coefficient of Variation 15.9 % (11.5-14.5); RDW Standard Deviation 49.9 fL (36.4-46.3); Red Blood Count 4.19 M/uL (4.20-5.40)
[2024-06-20 09:06] LABS: BUN Creatinine Ratio 17.1 (10-20); Calcium 8.9 mg/dl (8.6-10.3); Creatinine Clr Calc Pharmacy 38.7 ml/min; Est GFR (African American) 83.5 ml/min; Potassium 4.2 mmol/L (3.5-5.1)
[2024-06-20] MEDS: CEFDINIR 300 MG CAP PO SCH (09:24)
[2024-06-20] MEDS: SACCHAROMYCES BOULARDII 250 MG CAP PO SCH (09:25)
[2024-06-20] MEDS: FERROUS SULFATE 325 MG TAB PO SCH (09:27)
--- NOTE | 2024-06-20 10:23 | Discharge Summary ---
<Statement entered by Huber Bolanos, DO - 06/20/24 13:16> I have seen and examined the patient and have discussed the case with the provider above. I have reviewed the advanced practitioner's documentation, and I agree with, and take responsibility for that plan of care. 12 minutes spent in coordinating care and evaluation of patient. Patient sitting up in chair. No specific complaints. Uneventful night. Reviewed and coordinated discharge plans as outlined below with JESICA Discharge Summary Date of Service June 20, 2024 Principal Dx & Hospital Course #1 = Principal Diagnosis (1) Chest pain: 84-year-old female with past medical history significant for hypothyroidism, hyperlipidemia hypopotassemia, hyperlipidemia, history of recurrent pulmonary embolism and on Eliquis, history of subclavian artery stenosis, history of CVA, GERD, osteoporosis, Parkinson's disease with dyskinesia, anxiety, insomnia, depression, lumbar spinal stenosis s/p surgery, presents with profuse diaphoresis and also shortness of breath with exertion associated with chest pain. Patient states she is feeling profuse sweating today. And lately she was getting short of breath on exertion and whenever she is short of breath she is also getting chest pains. While resting she is okay. Denies any fevers. Has chronic occasional cough states because of Parkinson's. She is on slippery diet.States she feels fullness in the neck. Has some runny nose from her sinuses. Has some headache. Some dizziness. Vision is okay. No earache. No nausea. No abdominal pain. Normal bowel and bladder movements. Ambulates with a cane. Lives alone. Son lives close by. Currently hemodynamics are okay. Chest pain States shortness of breath upon exertion associated with chest pain While resting asymptomatic EKG showed accelerated junctional rhythm 2 sets of troponin negative CTA chest no acute findings except showing chronic severe left subclavian artery stenosis Serial troponins were unremarkable and EKG did not show any significant abnormalities Echo of the heart showed normal LV wall motion with EF 60 to 65%, normal RV chamber size and systolic function, and grade 1 diastolic dysfunction Appreciate cardiology input and recommendation for not any more cardiac workup Remains stable from cardiac status, feel likely MSK in origin Will get PT OT evaluation prior to discharge Acute UTI Possible causing diaphoresis Urine culture growing e.coli will discharge on 5 more days of oral cefdinir Neck fullness Will follow CT soft tissue neck CT of the neck did not show any evidence of soft tissue abnormality GERD/dysphagia From Parkinson's Follows with GI On PPI On soft slippery diet Parkinson's Restless leg syndrome Orofacial dyskinesia On Sinemet bid, on gabapentin and Requip And atropine drops for drooling Ambulates with cane PT OT when stable Follows with neurology Anemia may be causing SOB, hgb 9.6 yesterday. 11.0 today after IV iron anemia panel reveals low iron and folate She received 300mg IV venofer x 1 on start folic acid supplement iron 33, t sat 9%, folate 4.56 continue oral iron and folic acid supplement at discharge Anxiety Depression On Lexapro and and Ativan as needed Hyperparathyroidism Follows with Endo On vitamin D and calcium Osteoporosis Follows with rheumatology Hypothyroidism On Synthyroid Hypertension Lisinopril, blood pressure labile through admission, monitor closely as outpt Hypopotassemia On potassium supplements History of recurrent PE On Eliquis History of CVA On Eliquis DVT prophylaxis Eliquis Disposition Med/telemetry Full code Notes For Next Care Provider Please repeat iron panel and folate level in 2 months to determine need for further treatment regarding patients anemia. I feel this is a contributing factor to her symptoms. Consider GI eval if persistent iron def. Her blood pressure was labile during admission. Recommend close monitoring as outpt. Medication Changes From Visit * Cefdinir 300mg by mouth twice daily, next dose due evening of 06/20/24. This is an antibiotic to treat your urinary tract infection. * Florastor 250mg by mouth once daily for additional 5 days. Next dose due 06/21/24. This is a probiotic to take while you are on antibiotic treatment. * Ferrous Sulfate 325mg by mouth once daily, next dose due 06/21/24. * Folic Acid 1mg by mouth once daily, next dose due 06/21/24. Admission HPI Per Admitting Provider 84-year-old female with past medical history significant for hypothyroidism, hyperlipidemia hypopotassemia, hyperlipidemia, history of recurrent pulmonary embolism and on Eliquis, history of subclavian artery stenosis, history of CVA, GERD, osteoporosis, Parkinson's disease with dyskinesia, anxiety, insomnia, depression, lumbar spinal stenosis s/p surgery, presents with profuse diaphoresis and also shortness of breath with exertion associated with chest pain. Patient states she is feeling profuse sweating today. And lately she was getting short of breath on exertion and whenever she is short of breath she is also getting chest pains. While resting she is okay. Denies any fevers. Has chronic occasional cough states because of Parkinson's. She is on slippery diet.States she feels fullness in the neck. Has some runny nose from her sinuses. Has some headache. Some dizziness. Vision is okay. No earache. No nausea. No abdominal pain. Normal bowel and bladder movements. Ambulates with a cane. Lives alone. Son lives close by. Currently hemodynamics are okay. Past medical history. As mentioned above Past surgical history. Colonoscopy with biopsy. EGD. EGD with biopsy. Cholecystectomy. Shoulder arthroscopy. Total abdominal hysterectomy with removal of tubes. Right total knee replacement. Social history. . Quit smoking 1978. Smoked 0.5 packs a day for 35 years. No alcohol use. No drug use. Family history. Father had diabetes. Heart disorder. Mother had parkinsonism. Brother had colon cancer. Brother had CABG. Admission Exam Per Admitting Provider General- Not in distress Head- atraumatic Eyes- PERRL, ENT- oropharynx clear Neck- supple, no JVD. Lungs- clear to auscultation no wheezing or crackles. Heart- regular rate and rhythm; no murmur, no gallop. Abdomen- normal bowel sounds, soft, nontender, no distension Extremities- no pretibial edema, no erythema seen. Neuro- alert, oriented PERRL, no facial palsy; no dysarthria; moves extremities Discharge Exam Gen: WD/WN, NAD, A&O x3 HEENT: Normocephalic, atraumatic, conjunctivae moist, sclerae anicteric, mucous membranes moist. Lung: Clear to Auscultation bilaterally, no wheezes/rales/rhonchi Heart: Regular rate, regular rhythm, no murmurs, rubs, or gallops Abdomen: Soft, NT, ND +BS x 4 Extremities: No edema Skin: Warm, no rash, negative turgor. Updated Medication List Medication Instructions Recorded Confirmed Type carbidopa 25 mg-levodopa 100 mg 1 tab PO BID 03/02/19 06/19/24 History tablet levothyroxine 50 mcg tablet 50 mcg PO DAILYBB 03/02/19 06/17/24 History montelukast 10 mg tablet 10 mg PO QAM 03/02/19 06/17/24 History ropinirole 1 mg tablet 1 mg PO HS 03/02/19 06/17/24 History ondansetron HCl 4 mg tablet 4 mg PO BID 10/14/20 06/17/24 History gabapentin 300 mg capsule 300 mg PO BID 10/15/20 06/17/24 History potassium chloride 10 mEq 10 meq PO QAM 05/12/21 06/17/24 History tablet,extended release(part/cryst) (Klor-Con M) diphenhydramine 25 1 tab PO HS PRN Sleep 06/23/22 06/17/24 History mg-acetaminophen 500 mg tablet (Tylenol PM Extra Strength) apixaban 5 mg tablet (Eliquis) 5 mg PO BID 01/09/23 06/17/24 History lisinopril 2.5 mg tablet 2.5 mg PO DAILY #30 tabs 01/11/23 06/17/24 Rx acetaminophen 325 mg tablet 325 - 650 mg PO DIRECTED PRN 06/17/24 06/17/24 History (Tylenol) PAIN/FEVER atropine 1 % eye drops 1 - 2 drp sublingual DIRECTED 06/17/24 06/17/24 History PRN DROOLING calcium carbonate 500 mg PO DAILY 06/17/24 06/17/24 History cholecalciferol (vitamin D3) 125 125 mcg PO DAILY 06/17/24 06/17/24 History mcg (5,000 unit) tablet (Vitamin D3) escitalopram oxalate 10 mg tablet 10 mg PO DAILY 06/17/24 06/17/24 History lorazepam 0.5 mg tablet 0.5 mg PO BID PRN ANXIETY/INSOMNIA 06/17/24 06/17/24 History omeprazole 40 mg capsule,delayed 40 mg PO QAM 06/17/24 06/17/24 History release Saccharomyces boulardii 250 mg 250 mg PO DAILY #5 caps 06/20/24 Rx capsule (Florastor) cefdinir 300 mg capsule 300 mg PO BID #9 caps 06/20/24 Rx ferrous sulfate 325 mg (65 mg 325 mg PO QAM #30 tabs 06/20/24 Rx iron) tablet,delayed release folic acid 1 mg tablet 1 mg PO QAM #30 tabs 06/20/24 Rx Hospital Stay Data Consultations 06/17/24 22:21 ED Decision to Admit Stat 06/18/24 08:00 Consult Cardiology Routine Diagnostic Imagining Performed Chest X-Ray 06/17/24 17:45 XR chest 1V portable CLINICAL HISTORY: Dyspnea. COMPARISON STUDY: Chest radiograph January 08, 2023. Chest CT January 09, 2023. FINDINGS: Lung volumes are normal. Lungs are clear. There is no pneumothorax or pleural effusion. Mild cardiomegaly is unchanged. Mediastinal contours are normal. There is no evidence for pulmonary edema. IMPRESSION: No acute cardiopulmonary findings. ACT 112: Negative or not required by law. Electronically signed by: Jose Maria Smith M.D. 06/17/2024 6:39 PM Chest CTA 06/17/24 18:26 CT ANGIOGRAPHY OF THE CHEST DISSECTION PROTOCOL CLINICAL HISTORY: chest pain; shortness of breath COMPARISON STUDY: Chest CT January 09, 2023. Chest radiograph performed earlier today. TECHNIQUE: Before and following the IV administration of 119 mL of Optiray, helical axial images of the chest were obtained. Maximal intensity projections and sagittal and coronal reformats were viewed on an independent 3D workstation. IV contrast was administered without complication. Automated exposure control was utilized for the study. A dose lowering technique was utilized adhering to the principles of ALARA. CT DOSE: 1124.98 mGy.cm FINDINGS: The caliber of the thoracic aorta is normal. There is no intramural hematoma or thoracic aortic dissection. There is moderate atherosclerotic plaque within the thoracic aorta. Heart is moderately enlarged. No pulmonary emboli are identified. There is no pericardial effusion. There is no thoracic lymphadenopathy. There is extensive calcified atherosclerotic plaque within the proximal left subclavian artery. This results in severe stenosis versus less likely occlusion with distal reconstitution, similar to prior CT of January 09, 2023. There is no pneumothorax or pleural effusion. Subpleural biapical opacities represent scarring. No consolidation to suggest pneumonia. No suspicious pulmonary nodules. IMPRESSION: 1. No thoracic aortic dissection. 2. No pulmonary emboli. 3. No acute intrathoracic findings. 4. Extensive calcified plaque within the proximal left subclavian artery. This results in severe stenosis versus less likely occlusion with distal reconstitution, similar to prior CT. ACT 112: Negative or not required by law. Electronically signed by: Jose Maria Smith M.D. 06/17/2024 7:[address] PM [address]ck [address] 06/18/24 00:08 CT soft tissue neck wo con CT DOSE: CLINICAL HISTORY: neck fullness TECHNIQUE: Multiaxial CT images of the neck were performed without contrast. Sagittal and coronal reformations were performed at the workstation. A dose lowering technique was utilized adhering to the principles of ALARA. COMPARISON STUDY: CT cervical spine 04/07/2020. FINDINGS: The visualized brain parenchyma and orbits are unremarkable. The pterygopalatine fossa and paratracheal fat spaces are maintained. Prevertebral soft tissues and the epiglottis are normal in thickness. The major because old airways services are intact. Biapical pleural-parenchymal scarlike densities are noted. No acute fractures. Degenerative changes within the cervical spine. The paranasal sinuses and mastoid air cells are clear. The parotid and submandibular glands are symmetric. No mass, abscess, or lymphadenopathy identified within the neck. Carotid bifurcation calcifications are noted. IMPRESSION: No acute abnormality within the neck. ACT 112: Negative or not required by law. Electronically signed by: Dani Liz M.D. 06/18/2024 9:34 AM Pending Results Patient Have Any Pending Studies at Discharge: No Discharge Instructions Given to Patient (Per Discharging Provider) MEDICATION CHANGES: NEW MEDICATIONS: * Cefdinir 300mg by mouth twice daily, next dose due evening of 06/20/24. This is an antibiotic to treat your urinary tract infection. * Florastor 250mg by mouth once daily for additional 5 days. Next dose due 06/21/24. This is a probiotic to take while you are on antibiotic treatment. * Ferrous Sulfate 325mg by mouth once daily, next dose due 06/21/24. * Folic Acid 1mg by mouth once daily, next dose due 06/21/24. Continue all other medications as prescribed. SUMMARY OF TEST RESULTS: You were admitted to hospital due to sweating, chest pain and SOB. You had a cardiac work up that ruled out a heart attack and you were seen by a crop research scientist. Your lab work showed you are anemic. Further blood tests were checked to determine cause of anemia and it is likely due to iron deficiency and folate deficiency. You were given IV iron while hospitalized and will be discharged on a iron and folic acid tablet. PENDING TEST RESULTS: None RECOMMENDATIONS FOR FOLLOW-UP: Please follow up with your primary care provider upon discharge. You will need repeat blood work to monitor your iron and folate levels in 2 months. Your blood pressure was high and low during your hospital stay. Please monitor your blood pressure at home twice daily and keep a log of this. Take this log with you to your primary care provider appointment for close monitoring. Please take all medications as prescribed. Please complete antibiotic in entirety. OTHER INSTRUCTIONS: Seek medical attention if you have: * temperature above 101 * chest pain or trouble breathing * abdominal pain, nausea, vomiting * diarrhea, dark stools or bloody stools * any unanswered questions or concerns Call 911 if symptoms are severe. Please take good care of yourself. It has been a pleasure taking care of you. Please take care of yourself. If you have any questions regarding your recent hospitalization please contact [facility] and request Daya Irbyist @ [phone]. Total Time Total Time Spent Total Time Spent (In Minutes): 55 minutes
[2024-06-20 12:02] VITALS: BP 109/57; RESP 17; TEMP 97.5; O2SAT 93
[2024-06-20 16:07] VITALS: PULSE 81
== END 2024-06-20 16:21 | disposition home or self-care (01) | DRG 690 ==
LOC: ED 17:35 → 2W 23:12 → SUATTDRO 23:12 → 2W 06-18

== ENCOUNTER 2025-02-03 18:30 | Observation (INO) ==
--- OUTSIDE RECORDS SUMMARY | 2025-02-03 18:36 | External Medical Summary | Summary of Care ---
Author Name Unknown Organization [facility] Address [address] [place] [address] Phone [phone] Care Team Providers Care Privacy Compliance Manager Name Role Phone Vika Castellanos DO Primary Care Provider [phone] Reason for Referral * Precert (Within 10 days (routine)) - Authorized Specialty Diagnoses / Procedures Referred By Contac t Referred To Contact Pain Medicine Diagnoses Neuropathic pain Cervical myofascial pain syndrome Procedures TRIGGER POINT INJECTION(S), 1-2 MUSCLES Odalis Milian PA-C [address] [facility] [address] Phone: tel: fax: Referral ID Status Reason Start Date Expiration Date V isits Requested Visits Authorized [id number] Authorized 03/02/2025 [id number] Reason for Visit * Reason Comments Neck Pain Bilateral neck pain, intermittent achy. Left side tingling.crawling sensation with pulling and swelling. Bilateral shoulder and down bilateral arms tenderness. X 3-6 months, No Trauma * Evaluate & Treat - Unlimited Visits (Within 10 days (routine)) - Authorized Specialty Diagnoses / Procedures Referred By Contac t Referred To Contact Pain Management / Pain Medicine Diagnoses Parkinson's disease with dyskinesia, unspecified whether manifestations fluctuate (HCC) Neck pain on right side Vika Castellanos DO [address] [place] [address] Phone: tel: fax: Referral ID Status Reason Start Date Expiration Date Visits Requested Visits Authorized [id number] Authorized Specialty Services Required 12/31/2024 [id number] Encounter Details Date Type Department Care Team (Late st Contact Info) Description 01/31/2025 10:00 AM EDT Office Visit [facility] [address] [place] [phone] Odalis Milian PA-C [address] [place] [id number] Neuropathic pain*; Cervical myofascial pain syndrome Allergies Active Allergy Reactions Criticality Noted Date Comments Doxycycline Flushing 12/31/2024 Erythromycin 10/07/2021 Drowsy Cyclobenzaprine Hcl 02/19/2014 Worsened rls, made her heart pound Nitroglycerin Low 01/09/2023 Other reaction(s): Headache Famotidine Other (Please comment) 2023 GI upset, nausea Sulfa Antibiotics Edema airway High 08/11/2004 Tolterodine Edema airway High 08/11/2004 Detrol LA documented as of this encounter (statuses as of 01/31/2025) Medications acetaminophen (TYLENOL) 325 MG Tablet Take 1 Tablet by mouth. 04/19/20 16 Active Tylenol PM Extra Strength 500-25 MG Oral Tablet (diphenhydrAMINE -APAP (sleep)) Take 1 Tablet by mouth daily as needed for Sleep. Active Montelukast Sodium 10 MG Oral Tablet (Singulair)Indic ations:Chronic rhinitis,Cough TAKE 1 TAB BY MOUTH DAILY. FOR COUGH 90 Tablet 3 03/21/20 24 Active Klor-Con M10 10 MEQ Oral Tablet Extended Release (potassium chloride ER) TAKE 1 TABLET BY MOUTH EVERY DAY 90 Tablet 3 04/12/20 24 Active Escitalopram Oxalate 20 MG Oral Tablet (Lexapro)Indicat ions:Anxiety state,Adjustment disorder with depressed mood TAKE 1 TABLET BY MOUTH EVERY DAY IN THE MORNING 90 Tablet 1 04/16/20 24 Active Vitamin D 125 MCG (5000 UT) Oral Capsule Take 5,000 Units by mouth daily first thing in the morning. Active Calcium 500 MG Oral Tablet Take 1 Tablet by mouth in the morning. Active rOPINIRole HCl 1 MG Oral Tablet (Requip) TAKE 1 TABLET BY MOUTH EVERYDAY AT BEDTIME 90 Tablet 3 06/27/20 24 Active Ferrous Sulfate 325 (65 Fe) MG Oral Tablet Delayed Release Take 1 Tablet by mouth in the morning. 90 Tablet 9 07/11/20 24 Active Folic Acid 1 MG Oral Tablet Take 1 Tablet by mouth in the morning. 90 Tablet 9 11/08/19 25 Active Levothyroxine Sodium 50 MCG Oral Tablet (Levoxyl)Indicat ions:Hypothyroid ism, unspecified type TAKE 1 TABLET BY MOUTH EVERY MORNING (AT LEAST 30 MIN PRIOR TO BREAKFAST OR OTHER MEDS) 90 Tablet 1 11/15/19 25 Active Albuterol Sulfate HFA 108 (90 Base) MCG/ACT Inhalation Aerosol Solution Inhale 2 Puffs by mouth every 6 hours as needed (cough, chest congestion). 18 g 11/16/19 25 Active Omeprazole 40 MG Oral Capsule Delayed Release (PriLOSEC)Indica tions:Gastroesop hageal reflux disease without esophagitis TAKE 1 CAPSULE BY MOUTH EVERY DAY IN THE MORNING 90 Capsule 11/26/19 25 Active Gabapentin 300 MG Oral Capsule (Neurontin)Indic ations:New onset of headaches after age 50 TAKE 1 CAPSULE BY MOUTH TWICE DAILY 180 Capsule 11/26/19 25 Active Apixaban 5 MG Oral Tablet (Eliquis)Indicat ions: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),assisted current use of anticoagulant therapy TAKE 1 TABLET BY MOUTH AT 8AM AND THEN TAKE 1 TABLET AT 8PM. 180 Tablet 1 11/26/19 25 Active Lisinopril 2.5 MG Oral Tablet (Prinivil) TAKE 1 TABLET BY MOUTH EVERY DAY IN THE MORNING 90 Tablet 1 11/26/19 25 Active Ondansetron HCl 4 MG Oral Tablet (Zofran)Indicati ons:Nausea TAKE 1 TABLET BY MOUTH EVERY DAY IN THE MORNING AND AT BEDTIME 60 Tablet 3 11/26/19 25 Active Atropine Sulfate 1 % Ophthalmic SolutionIndicati ons:Sialorrhea 1-2 drop under you tongue every 8 hours as needed for drooling 2 mL 11/26/19 25 Active Carbidopa-Levodo pa 25-100 MG Oral Tablet (Sinemet) 1 tablet 3x daily 270 Tablet 11/27/19 25 Active Fluticasone Propionate 50 MCG/ACT Nasal Suspension (Flonase) Administer 2 Sprays into each nostril in the morning. 16 g 5 12/13/19 25 Active LORazepam 0.5 MG Oral Tablet (Ativan)Indicati ons:Anxiety state Take 1 Tablet by mouth 2 times a day as needed for Anxiety or Insomnia. 30 Tablet 01/12/20 25 Active methylPREDNISolo ne 4 MG Oral Tablet Therapy Pack (Medrol Dosepack) follow package directions 21 Tablet 11/16/19 25 2024 Discontinued(M edication List Clean Up) tiZANidine HCl 2 MG Oral Tablet (Zanaflex) TAKE 1 TABLET BY MOUTH TWICE A DAY 60 Tablet 1 12/07/19 25 2024 Discontinued documented as of this encounter (statuses as of 01/31/2025) Active Problems Problem Noted Date Diagnosed Date Long-term current use of benzodiazepine 05/28/20 24 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 01/11/2024 Senile osteoporosis 07/07/2023 assisted current use of anticoagulant therapy 0 06/30/2022 Recurrent pulmonary emboli 06/30/2022 Subclavian arterial stenosis 06/30/2022 Moderate episode of recurrent major depressive d isorder 03/25/2022 Pulmonary embolism and infarction 11/13/2020 Controlled substance agreement signed 08/04/2017 Parkinson's disease 08/04/2017 Dyslipidemia, goal LDL below 130 07/28/2010 SPINAL STENOSIS-LUMBAR S/P SURGERY 11/2612/31/19 10 CEREBROVASCULAR DZ, POST-STROKE 01/28/2009 Overview (01/30/2009): Modified per CVA protocol #8 Benign neoplasm of colon 11/19/2008 Overview (11/22/2008): hyperplastic /repeat colonoscopy in 3-5 yrs Adjustment disorder with depressed mood 09/23/20 08 Hypopotassemia 12/01/2007 Anxiety state 10/03/2007 Insomnia 10/03/2007 Overview (07/18/2017): ICD-10 update of inactive term Esophageal reflux 07/05/2007 Hypothyroidism 05/02/2007 documented as of this encounter (statuses as of 01/31/2025) Resolved Problems Problem Noted Date Diagnosed Date Resolved Date Benign neoplasm of stomach 07/13/2012 1 Overview (07/17/2012): ademomatous-repeat EGD in 6 months MYELOPATHY BOTH LOWER EXT 12/09/2010 RADICULOPATHY 12/09/2010 08/04/2017 Sebaceous cyst 02/07/2010 08/04/2017 Dyslipidemia, goal to be determined 10/02/2009 07/28/2010 Overview (10/02/2009): Per Lipid Taxonomy. Spinal stenosis of lumbar re gion without neurogenic claudication 04/14/2009 12/30/2009 Chronic rhinitis 09/02/2008 08/04/2017 Osteoarthrosis, unspecified whether generalized or localized, lower leg 06/27/200807/17 Dyslipidemia, goal LDL below 160 10/31/2007 10/02/2009 Overview (10/02/2009): Per Lipid Taxonomy. Dyslipidemia, goal LDL below 160 10/03/2007 10/31/2007 Intestinal infection due to Clostridium difficile 07/05/2007 12/30/2009 Gastritis and gastroduodenitis 05/02/2007 07/18/2009 Cerebrovascular event, ill-d efined, within last 8 weeks 05/02/2007 01/30/2009 Overview (01/30/2009): Modified per CVA protocol #8 Lumbago 05/02/2007 08/04/2017 Colitis, enteritis, and barrett roenteritis of presumed infectious origin 07/18/2009 Spinal stenosis, unspecified region other than cervical 12/05/2009 documented as of this encounter (statuses as of 01/31/2025) Immunizations Name Administration Dates Next Due COVID-19 mRNA, LNP-s, No Pre serve, 2-Dose Series (Moderna) 03/18/2021,02/18/2021 Pneumococcal Conjugate Vacc, 13 Valent (Prevnar) 10/30/2015 Pneumococcal Polysaccharide PPV23 (Pneumovax) 06/14/2007 Seasonal Influenza Vac., MDV , IM, 0.5 mL (Fluzone) 06/27/2015,07/16/2014,07/16/2013,12/2011,08/09/2011,07/28/2010,06/26/20 09,07/22/2008,09/05/2007 Seasonal Influenza Virus Vac cine, Unspecified Formulation 07/21/2021,07/02/2020,07/14/2019,07/17,08/04/2017,07/01/2016,06/27/20 15,07/16/2014,07/16/2013,07/19/2012,1 ,07/28/2010,06/26/2009,07/22,09/05/2007 Seasonal Influenza, High Dos e, Trivalent, PF, IM (Fluzone HD) 06/22/2024 Seasonal Influenza, PF, 6 M & above, IM , (FluLaval or Fluzone) 07/02/2020,07/14/2019,07/27/2018,07/1708/04/2018 Seasonal Influenza, Quadriva lent Hd (Fluzone Hd) 07/07/2023,06/30/2022,07/21/2021 Seasonal Influenza, Quadriva lent, No Preserve, IM 07/01/2016 TD, Preservative Free 07/22/2008 TDAP (age 10 and older)(Boostrix) 11/05/2021 Varicella Zoster Vaccine Stas lt (Zostavax) 07/19/2013 documented as of this encounter Social History Tobacco Use Types Packs/Day Years Used Date Smoking Tobacco: Former Cigarettes 0.5 35 0 03/20/1944 - 03/20/1979 Passive Smoke Exposure: Past Smokeless Tobacco: Never Comments:quit in 1978 Alcohol Use Standard Drinks/Week Comments No 0 (1 standard drink = 0.6 oz pur e alcohol) PHQ-2 Answer Date Recorded PHQ Adult Total Score 0 11/26/2024 Hunger Vital Sign Answer Date Recorded Within the past 12 months, y ou worried that your food would run out before you got the money to buy more. Never true 11/26/19 25 Within the past 12 months, t he food you bought just didn't last and you didn't have money to get more. Never true 11/26/2024 Childcare Answer Date Recorded Do you feel overwhelmed with taking care of a child, family member or friend? No 11/26/2024 Does your family need help f inding childcare? (Household - for ages 0-17 years) Not on file 11/26/2024 Clothing Answer Date Recorded Have you been unable to get clothing when it was really needed? No 11/26/2024 Is your family able to get c lothes or diapers when needed? (Household - for ages 0-17 years) Not on file 11/26/2024 Personal Safety Answer Date Recorded Do you feel unsafe or have concerns for your saf ety? No 11/26/2024 Do you have concerns for you r family's safety? (Household - for ages 0-17 years) Not on file 11/26/2024 Utilities Answer Date Recorded Do you have trouble paying y our heating, water, or electric bill? No 11/26/2024 Is your family able to pay t he heat, water, or electric bill? (Household - for ages 0-17 years) Not on file 11/26/2024 Does your family have access to good internet? (Household - for ages 0-17 years) Not on file 11/26/2024 Employment Status Answer Date Recorded Are you unemployed or without regular income? No 11/26/2024 Does the household have a re lar source of income? (Household - for ages 0-17 years) Not on file 11/26/2024 Social Connections Answer Date Recorded How often do you feel lonely or isolated from th ose around you? Never 11/26/2024 Financial Resource Strain Answer Date R ecorded Do you have any trouble payi ng for your medications, or do you think you might in the future? No 11/26/2024 Does your family have troubl e paying for medicine? (Household - for ages 0-17 years) Not on file 11/26/2024 Transportation Needs Answer Date Record ed Do you have trouble getting a ride to medical visits or work? (Adult - for ages 18 years and over) Not on file 11/26/2024 Does your family have a hard time getting a ride to doctors visits? (Household - for ages 0-17 years) Not on file 11/26/2024 Has lack of transportation k ept you from medical appointments, meetings, work, or from getting things needed for daily living? Check all that apply. No 11/26/2024 Do you (or your family) have trouble finding or paying for a ride (transportation)? (Household - for ages 0-17 years) Not on file 11/26/2024 Housing Stability Answer Date Recorded Do you currently live in a s helter or have no steady place to sleep at night? No 11/26/2024 Do you think you are at risk of becoming homeless? (Adult - for ages 18 years and over) Not on file 11/26/2024 Does your family worry about paying for your home or becoming homeless? (Household - for ages 0-17 years) Not on file 0 11/26/2024 Are you homeless or worried that you might be in the future? No 11/26/2024 Are you (or your family) anneliese eless or worried that you might be in the future? (Household - for ages 0-17 years) Not on file Food Insecurity Answer Date Recorded Within the past 12 months, y ou worried that your food would run out before you got the money to buy more. Never true 11/26/19 25 Within the past 12 months, t he food you bought just didn't last and you didn't have money to get more. Never true 11/26/2024 Do you need food for this week? 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 CHIEF COMPLAINT: Neck pain HPI: Sera Gutiérrez is a 84 year old female who complains of L > R neck pain with "crawling" sensation L neck/jaw/face. This pain started six months ago without preceding injury. PCP and neurology requesting consideration of trigger point injections, see 12/31 encounter. mild relief with conservative care including physical therapy ([facility],) home stretching, medication management. Symptoms occur daily. Describes pain as "pulling." Pain is constant, rated 5/10. Aggravating factors include: C spine rotation. Unable to provide alleviating factors. Admits associated weakness B upper and lower extremities. Chronic balance changes - ambulates with cane which has been used for quite some time - significant hx Parkinson's disease. Cruz over UE radicular pain, notes UE are always sore - does not follow dermatomal pattern. Denies paresthesia B UE. Denies bowel or bladder incontinence. Significant hx lumbar spinal surgery and injections. Denies cervical spine surgery or injections. Significant past medical hx includes: Parkinsons disease, depression, osteoporosis, CVA, PE. Current medications used for pain: zanaflex, gabapentin, tylenol. Past medications used for pain: oral steroid taper. Anticoagulation therapy: eliquis Diabetic: no Presents with female friend. PAST MEDICAL HISTORY: Past Medical History: Diagnosis Date Benign neoplasm of colon 11/17/2007 hyperplastic and adenomatous/ repeat colonoscopy in 1 yr Benign neoplasm of colon 11/19/2008 hyperplastic /repeat colonoscopy in 3-5 yrs Benign neoplasm of stomach 07/13/2012 ademomatous-repeat EGD in 6 months Cerebrovascular event, ill-defined, within last 8 weeks Colitis, enteritis, and gastroenteritis of presumed infectious origin Esophageal reflux Gall stones Hypopotassemia Hypothyroidism Kidney infection Parkinson's disease (HCC) Pneumonia Pulmonary embolism (HCC) Spinal stenosis, unspecified region other than cervical Past Medical History - Pertinent Findings: (-) clotting disorder, (-) anesthetic problem PAST SURGICAL HISTORY: Past Surgical History: Procedure Laterality Date OTHER 1989 Back surgery COLONOSCOPY W/ BIOPSY (RECTUM) 07/12/2007 repeat 5 yrs no IBD COLONOSCOPY W/ BIOPSY (RECTUM) 11/17/2007 hyperplastic and adenomatous; repeat in 1 yr COLONOSCOPY W/ BIOPSY (RECTUM) 11/19/2008 polyp removed/hyperplastic/repeat in 3-5 yrs COLONOSCOPY W/ BIOPSY (RECTUM) 02/26/2009 [address] COLONOSCOPY W/ BIOPSY (RECTUM) 09/20/2011 BX - very mild inflammation COLONOSCOPY, DIAGNOSTIC (RECTUM) 01/05/2013 COLONOSCOPY FLEXIBLE PROXIMAL DIAGNOSTIC performed by Ade Pleitez MD at [facility]COPY [facility] COLONOSCOPY, DIAGNOSTIC (RECTUM) 04/07/2016 normal/[facility] EGD, FLEXIBLE, DIAGNOSTIC 07/13/2012 ademomatous-repeat EGD in 6 months/UPPER GI ENDOSCOPY DIAGNOSTIC performed by Ade Pleitez MD at ENDOSCOPY [facility] EGD, FLEXIBLE, DIAGNOSTIC 01/05/2013 UPPER GI ENDOSCOPY DIAGNOSTIC performed by Ade Pleitez MD at [facility] EGD, FLEXIBLE, DIAGNOSTIC 08/15/2014 normal/done @ [facility] EGD, FLEXIBLE, DIAGNOSTIC 04/07/2016 normal bx/[facility] EGD, FLEXIBLE, DIAGNOSTIC 07/13/2019 normal bx/ESOPHAGOGASTRODUODENOSCOPY (EGD), FLEXIBLE, TRANSORAL, DIAGNOSTIC performed by Rosa Luciano MD at [facility]COPY [facility] EGD, FLEXIBLE, DIAGNOSTIC 11/25/2021 normal / ESOPHAGOGASTRODUODENOSCOPY (EGD), FLEXIBLE, TRANSORAL, DIAGNOSTIC performed by David Nazario MD at ENDOSCOPY [facility] EGD, FLEXIBLE, DIAGNOSTIC 09/14/2023 normal/ESOPHAGOGASTRODUODENOSCOPY (EGD), FLEXIBLE, TRANSORAL, DIAGNOSTIC performed by David Nazario MD at ENDOSCOPY [facility] EGD, FLEXIBLE, W/BIOPSY 11/19.2009 done mild gastritis, z line irregular 36 cms from incisorsmild chronic inflammation REMOVE GALLBLADDER [address] Padilla for bone spurs TOTAL ABD HYSTERECTOMY W/WO REMOVAL OF TUBE(S) 1983 TOTAL HYSTERECTOMY 1984 TOTAL KNEE REPLACEMENT EDU. 07/15/2015 Dr Young, RIGHT FAMILY HISTORY: Family History Problem Relation Name Age of Onset Parkinsonism Mother age 68, 1970 Diabetes Father Heart Disorder Father age 95 Other (Unknown) Sister Bhavya age 89 Lung Disorder Sister Mariah Oxygen dependent, age 84 Colon cancer Brother Heart disease Brother h/o CABG, 70 Family History - Pertinent Findings: (-) clotting disorder and (-) anesthetic problem SOCIAL HISTORY: Social History Tobacco Use Smoking status: Former Current packs/day: 0.00 Average packs/day: 0.5 packs/day for 35.0 years (17.5 ttl pk-yrs) Types: Cigarettes Start date: 03/20/1944 Quit date: 03/20/1979 Years since quittin.9 Passive exposure: Past Smokeless tobacco: Never Tobacco comments: quit in 1978 Vaping Use Vaping status: Never Used Substance Use Topics Alcohol use: No Drug use: No CURRENT MEDICATIONS: Note that discontinued and completed medications (per the MAR) continue to display for 24 hours. Ordered medications to be given in the future also display. Current Outpatient Medications Medication Sig Dispense Refill acetaminophen (TYLENOL) 325 MG Tablet Take 1 Tablet by mouth. Tylenol PM Extra Strength 500-25 MG Oral Tablet (diphenhydrAMINE-APAP (sleep)) Take 1 Tablet by mouth daily as needed for Sleep. Montelukast Sodium 10 MG Oral Tablet (Singulair) TAKE 1 TAB BY MOUTH DAILY. FOR COUGH 90 Tablet 3 Klor-Con M10 10 MEQ Oral Tablet Extended Release (potassium chloride ER) TAKE 1 TABLET BY MOUTH EVERY DAY 90 Tablet 3 Escitalopram Oxalate 20 MG Oral Tablet (Lexapro) TAKE 1 TABLET BY MOUTH EVERY DAY IN THE MORNING 90Tablet 1 Vitamin D 125 MCG (5000 UT) Oral Capsule Take 5,000 Units by mouth daily first thing in the morning. Calcium 500 MG Oral Tablet Take 1 Tablet by mouth in the morning. rOPINIRole HCl 1 MG Oral Tablet (Requip) TAKE 1 TABLET BY MOUTH EVERYDAY AT BEDTIME 90 Tablet 3 Ferrous Sulfate 325 (65 Fe) MG Oral Tablet Delayed Release Take 1 Tablet by mouth in the morning. 90 Tablet 9 Folic Acid 1 MG Oral Tablet Take 1 Tablet by mouth in the morning. 90 Tablet 9 Levothyroxine Sodium 50 MCG Oral Tablet (Levoxyl) TAKE 1 TABLET BY MOUTH EVERY MORNING (AT LEAST 30MIN PRIOR TO BREAKFAST OR OTHER MEDS) 90 Tablet 1 methylPREDNISolone 4 MG Oral Tablet Therapy Pack (Medrol Dosepack) follow package directions (Patient not taking: Reported on 11/26/2024) 21 Tablet 0 Albuterol Sulfate HFA 108 (90 Base) MCG/ACT Inhalation Aerosol Solution Inhale 2 Puffs by mouth every 6 hours as needed (cough, chest congestion). 18 g 1 Omeprazole 40 MG Oral Capsule Delayed Release (PriLOSEC) TAKE 1 CAPSULE BY MOUTH EVERY DAY IN THE MORNING 90 Capsule 1 Gabapentin 300 MG Oral Capsule (Neurontin) TAKE 1 CAPSULE BY MOUTH TWICE DAILY 180 Capsule 1 Apixaban 5 MG Oral Tablet (Eliquis) TAKE 1 TABLET BY MOUTH AT 8AM AND THEN TAKE 1 TABLET AT 8PM. 180 Tablet 1 Lisinopril 2.5 MG Oral Tablet (Prinivil) TAKE 1 TABLET BY MOUTH EVERY DAY IN THE MORNING 90 Tablet 1 Ondansetron HCl 4 MG Oral Tablet (Zofran) TAKE 1 TABLET BY MOUTH EVERY DAY IN THE MORNING AND AT BEDTIME 60 Tablet 3 Atropine Sulfate 1 % Ophthalmic Solution 1-2 drop under you tongue every 8 hours as needed for drooling 2 mL 12 Carbidopa-Levodopa 25-100 MG Oral Tablet (Sinemet) 1 tablet 3x daily 270 Tablet 1 tiZANidine HCl 2 MG Oral Tablet (Zanaflex) TAKE 1 TABLET BY MOUTH TWICE A DAY 60 Tablet 1 Fluticasone Propionate 50 MCG/ACT Nasal Suspension (Flonase) Administer 2 Sprays into each nostril in the morning. 16 g 5 LORazepam 0.5 MG Oral Tablet (Ativan) Take 1 Tablet by mouth 2 times a day as needed for Anxiety orInsomnia. 30 Tablet 0 No current facility-administered medications for this visit. ALLERGIES: Sulfa antibiotics, Tolterodine, Doxycycline, Erythromycin, Flexeril [cyclobenzaprine hcl], Pepcid [famotidine], and Nitroglycerin ROS: Constitutional: Negative for fatigue, fever, appetite change, unexplained weight loss. ENT: Negative for hearing loss, sore throat. Respiratory: Negative for cough, shortness of breath, dyspnea. Musculoskeletal: + neck, low back pain - see HPI Neurological: Negative for headaches, seizures. + paresthesias L neck, face - see HPI Genitourinary: Negative for dysuria, urinary frequency, hematuria. Hematologic/ Lymphatic: Negative for easy bleeding, bruising, lymphadenopathy. Gastrointestinal: Negative for abdominal pain, nausea, vomiting, constipation, diarrhea. Cardiovascular: Negative for chest pain, palpitations, ankle swelling, orthopnea. PHYSICAL EXAMINATION: Most Recent Vital Signs: There were no vitals filed for this visit. General Appearance: Patient appears to be about stated age, pleasant and cooperative with normal affect. HEENT: head normocephalic and pupils equal round and reactive to light and accommodation, EOMI Chest: No gross abnormality. Nonlabored breathing. Cervical Spine: Exaggerated cervicothoracic kyphosis. No masses palpable. Midline nontender. + L > > R paraspinal tenderness with myofascial trigger points trapezius and paraspinals. Limited active ROM with flexion, extension, rotation and lateral bending bilaterally. Cervical Spine Provocative Testing: Spurling's Test: positive bilaterally Cervical Facet Loading: positive bilaterally Extremity Strength: Shoulder abduction: 5/5 bilaterally Elbow Extension: 5/5 bilaterally Elbow Flexion: 5/5 bilaterally Ppa Teacher: Equal and symmetric Hip Flexion: 5/5 bilaterally Hip Adduction: 5/5 bilaterally Hip Abduction: 5/5 bilaterally Great Toe Extension: 5/5 bilaterally Deep Tendon Reflex: Biceps: 2/4 bilaterally Triceps: 2/4 bilaterally Brachioradialis: 2/4 bilaterally Patellar: 2/4 bilaterally Achilles: 1/4 bilaterally Sensation: Dermatomal sensation not formally tested. Grossly normal and symmetric unless otherwise specified. Gait: Intact, no sign of ataxia. Ambulates with assistance. IMAGING: XR C SPINE 4-5 VIEWS - 01/12/2024 10:32 am The cervical spine is adequately visualized. Mild reversal of the cervical lordosis. No listhesis. No evidence for acute fracture. Moderate multilevel cervical degenerative disc disease with disc height loss, endplate osteophyte formation and mild uncovertebral/facet arthropathy, mildly progressed from prior. No significant bony neural foraminal narrowing. No prevertebral soft tissue thickening is noted. IMPRESSION 1. No acute osseous abnormality. 2. Moderate multilevel cervical degenerative disc disease, mildly progressed from prior. ASSESSMENT: Myofascial pain, cervical spine Neuropathic pain, L neck/jaw PLAN: Discussed cervical spine TPI, CPT 03427. Risks including but not limited to bleeding, infection, worsening pain, failure to alleviate pain were reviewed and accepted. Will schedule TPI. Discussed updated C spine MRI, concerned for significant spinal stenosis, facet disease which couldbe contributing to paresthesia she's feeling in jaw and face, defers MRI for now. Question if melinda could be considered in place of gabapentin, or consider adding Cymbalta - she isn't very keen on starting an additional medication. She is already using lexapro. Odalis Milian PA-C 01/31/2025 documented in this encounter Nursing Notes * Felisha Bailey LPN - 01/31/2025 10:00 AM EDT Patient presents for Bilateral neck pain, intermittent achy. Left side tingling.crawling sensation with pulling and swelling. Bilateral shoulder and down bilateral arms tenderness. X 3-6 months, No Trauma Previous injections: back injections years ago Previous Surgeries: Right TKR- Dr. Young Back Surgeries? PT: [facility]: XR C Spine 01/11/25, XR Shoulder 01/11/25 documented in this encounter Miscellaneous Notes * Pt Handout (on AVS) - Odalis Milian PA-C - 01/31/2025 10:38 AM EDT Images from the original note were not included. Trigger Point Injections - Video This outpatient procedure is designed to reduce or relieve the pain of trigger points. These small,tender knots can form in muscles or in the fascia (the soft, stretchy connective tissue that surrounds muscles and organs). The trigger point injection procedure takes only a few minutes to complete. To view the video go to this web address: [email or web address] Or, scan this QR code with your smart phone 2019 [employer]. * Pt Handout (on AVS) - Odalis Milian PA-C - 01/31/2025 10:38 AM EDT Images from the original note were not included. [id number] Trigger Point Injection What is a trigger point? A trigger point is a tight, painful knot of muscle fiber. It can form where a muscle is strained orinjured. The knot can sometimes be felt under the skin. A trigger point is very tender to the touch. Pain may also spread to other parts of the affected muscle. Or you may have pain in another area of your body (referred pain). Muscles around a knee, shoulder blade, or other bones are prone to trigger points. This is because these muscles are more likely to be injured. The cause of your muscle pain or spasms may be 1 or more trigger points. Your health care provider may decide to inject the painful spots to relax the muscle. This can help relieve your pain. Relaxing the muscle can also make movement easier. You may then be able to exercise to strengthen the muscle and help it heal. Injecting a trigger point can help relax the affected muscle and relieve pain. About the injections Any muscle in the body can have 1 or more trigger points. Several injections may be needed in each trigger point to best ease pain. These injections may be given in sessions about 2 weeks apart. Thisdepends on what your provider prefers. In some cases, you may not feel much change in your symptomsuntil after the third injection. Risks and possible complications Risks and complications are very rare, but may include: · Infection. · Bleeding. · Lung puncture (pneumothorax or collapsed lung). · Nerve damage. · Allergic reaction. Last Reviewed Date: 2024 00:00:00 © 0375-9386 [employer]. All rights reserved. This information is not intended as a substitute for professional medical care. Always follow your healthcare professional's instructions. documented in this encounter Plan of Treatment Upcoming Encounters Date Type Department Care Team (Late st Contact Info) Description 03/04/2025 11:00 AM EDT Office Visit Interventional Pain Center [facility] [address] [phone] Odalis Milian PA-C [address] [place] [id number] 03/15/2025 1:30 PM EDT PulmDiagnostic Pulmonary Function Lab, [facility] [address] [phone] [place], [address] [id number] 03/15/2025 2:00 PM EDT PulmDiagnostic Pulmonary Function Lab, [facility] [address] [place], [place] [phone] [place], [address] [place], [place] [address] 03/25/2025 10:30 AM EDT Imaging Radiology [facility] [address] [place] [phone] 04/02/2025 10:30 AM EDT Office Visit Gastroenterology, [facility] [address] [place] [phone] Lacy Tompkins CRNP [address] [place] [address] 04/16/2025 1:00 PM EDT Office Visit Neurology [facility] [address] [facility] [place] [phone] Hung Ennis DO [address] [facility] [place] [address] 05/27/2025 11:00 AM EDT Laboratory Laboratory, [facility] [address] [facility] [place] [phone] [facility] [address] [facility] [id number] 06/03/2025 2:30 PM EDT Office Visit Hematology/Oncology [facility] [address] [facility] [place] [phone] Betsy Tompkins CRNP [address] [place] [address] [place] [address] 07/08/2025 11:50 AM EDT [facility] [address] [facility] [place] [phone] Vika Castellanos DO [address] [place] [address] Scheduled Orders Name Type Priority Associated Diagnoses Orde r Schedule TRIGGER POINT INJECTION(S), 1-2 MUSCLES Procedures Routine Neuropathic pain Cervical myofascial pain syndrome Expected: 03/02/2025, Expires: 03/02/2026 Health Maintenance Due Date Last Done Comments Zoster Vaccines (2 of 3) 09/13/2013 07/19/2013 Adult Wellness Visit 10/30/2016 10/30/2015 COVID-19 Vaccine ( season) 2024 03/18/2021, 02/18/2021 TSH 02/19/2025 02/20/2024, 01/2023, 07/07/2023, Additional history exists DXA Scan 03/22/2025 03/22/2023, 03/17, 02/08/2012, Additional history exists Depression Monitoring 11/26/2025 11/26/2024 DTap/Tdap Vaccines (2 - Td or Tdap) 11/05/2031 11/05/2021, 07/22/2008 Pneumococcal Vaccine: 50+ Years Completed 10/30/2015, 06/14/2007 Influenza Vaccine (FLU shot) Completed 03/2024, 07/07/2023, 06/30/2022, Additional history exists VITAMIN D LEVEL ONCE IN A LIFETIME-USE SMARTSET# [id number] Completed 07/20/2024, 07/07/2023, 03/25/2022, Additional history exists HPV (Gardasil) Vaccine Aged Out No lo nger eligible based on patient's age to complete this topic Hepatitis B Vaccine Aged Out No longe r eligible based on patient's age to complete this topic MENINGOCOCCAL (MENACTRA/MENVEO) Aged Out No longer eligible based on patient's age to complete this topic Meningitis B Vaccine (Bexsero/Trumemba) Aged Out No longer eligible based on patient's age to complete this topic documented as of this encounter Medical Devices Not on filedocumented as of this encounter Visit Diagnoses Diagnosis Neuropathic pain- Primary Neuralgia, neuritis, and radiculitis, unspecified Cervical myofascial pain syndrome Mylagia and myositis, unspecified documented in this encounter Care Teams Privacy Compliance Manager Relationship Specialty Start Date End Date Vika Castellanos DO [address] [id number] PCP - General Family Medicine 05/22/12 documented as of this encounter
--- OUTSIDE RECORDS SUMMARY | 2025-02-03 18:36 | External Medical Summary | Summary of Care ---
Author Name Unknown Organization [facility] Address [address] [place] [address] Phone [phone] Care Team Providers Care Twx Operator Name Role Phone Vika Castellanos DO Primary Care Provider Reason for Visit * Reason Comments Follow Up Return pulm. 1 year. Pulm embolis shortness of breath with exertion. Encounter Details Date Type Department Care Team (Latest Contact Info) Description 01/31/2025 1:00 PM EDT Office Visit Pulmonary Medicine, [facility] [address] [place] [phone] Conner Calvo PA-C [address] [place] [phone] Dyspnea and respiratory abnormalities*; Pulmonary embolism and infarction (HCC); Parkinson's disease without dyskinesia, with fluctuating manifestations (HCC); Torticollis, acquired Allergies Active Allergy Reactions Criticality Noted Date Comments Doxycycline Flushing 12/31/2024 Erythromycin 10/07/2021 Drowsy Cyclobenzaprine Hcl 02/19/2014 Worsened rls, made her heart pound Nitroglycerin Low 01/09/2023 Other reaction(s): Headache Famotidine Other (Please comment) 2023 GI upset, nausea Sulfa Antibiotics Edema airway High 08/11/2004 Tolterodine Edema airway High 08/11/2004 Detrol LA documented as of this encounter (statuses as of 02/01/2025) Medications acetaminophen (TYLENOL) 325 MG Tablet Take 1 Tablet by mouth. 6 Active Tylenol PM Extra Strength 500-25 MG Oral Tablet (diphenhydrAMINE- APAP (sleep)) Take 1 Tablet by mouth daily as needed for Sleep. Active Montelukast Sodium 10 MG Oral Tablet (Singulair)Indica tions:Chronic rhinitis,Cough TAKE 1 TAB BY MOUTH DAILY. FOR COUGH 90 Tablet 3 4 Active Klor-Con M10 10 MEQ Oral Tablet Extended Release (potassium chloride ER) TAKE 1 TABLET BY MOUTH EVERY DAY 90 Tablet 3 4 Active Escitalopram Oxalate 20 MG Oral Tablet (Lexapro)Indicati ons:Anxiety state,Adjustment disorder with depressed mood TAKE 1 TABLET BY MOUTH EVERY DAY IN THE MORNING 90 Tablet 1 4 Active Vitamin D 125 MCG (5000 UT) Oral Capsule Take 5,000 Units by mouth daily first thing in the morning. Active Calcium 500 MG Oral Tablet Take 1 Tablet by mouth in the morning. Active rOPINIRole HCl 1 MG Oral Tablet (Requip) TAKE 1 TABLET BY MOUTH EVERYDAY AT BEDTIME 90 Tablet 3 4 Active Ferrous Sulfate 325 (65 Fe) MG Oral Tablet Delayed Release Take 1 Tablet by mouth in the morning. 90 Tablet 9 4 Active Folic Acid 1 MG Oral Tablet Take 1 Tablet by mouth in the morning. 90 Tablet 9 5 Active Levothyroxine Sodium 50 MCG Oral Tablet (Levoxyl)Indicati ons:Hypothyroidis m, unspecified type TAKE 1 TABLET BY MOUTH EVERY MORNING (AT LEAST 30 MIN PRIOR TO BREAKFAST OR OTHER MEDS) 90 Tablet 1 5 Active Albuterol Sulfate HFA 108 (90 Base) MCG/ACT Inhalation Aerosol Solution Inhale 2 Puffs by mouth every 6 hours as needed (cough, chest congestion). 18 g 5 Active Omeprazole 40 MG Oral Capsule Delayed Release (PriLOSEC)Indicat ions:Gastroesopha geal reflux disease without esophagitis TAKE 1 CAPSULE BY MOUTH EVERY DAY IN THE MORNING 90 Capsule 1 5 Active Gabapentin 300 MG Oral Capsule (Neurontin)Indica tions:New onset of headaches after age 50 TAKE 1 CAPSULE BY MOUTH TWICE DAILY 180 Capsule 5 Active Apixaban 5 MG Oral Tablet (Eliquis)Indicati ons: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),[facility] current use of anticoagulant therapy TAKE 1 TABLET BY MOUTH AT 8AM AND THEN TAKE 1 TABLET AT 8PM. 180 Tablet 1 5 Active Lisinopril 2.5 MG Oral Tablet (Prinivil) TAKE 1 TABLET BY MOUTH EVERY DAY IN THE MORNING 90 Tablet 1 5 Active Ondansetron HCl 4 MG Oral Tablet (Zofran)Indicatio ns:Nausea TAKE 1 TABLET BY MOUTH EVERY DAY IN THE MORNING AND AT BEDTIME 60 Tablet 3 5 Active Atropine Sulfate 1 % Ophthalmic SolutionIndicatio ns:Sialorrhea 1-2 drop under you tongue every 8 hours as needed for drooling 2 mL 12 5 Active Carbidopa-Levodop a 25-100 MG Oral Tablet (Sinemet) 1 tablet 3x daily 270 Tablet 1 5 Active Fluticasone Propionate 50 MCG/ACT Nasal Suspension (Flonase) Administer 2 Sprays into each nostril in the morning. 16 g 5 5 Active LORazepam 0.5 MG Oral Tablet (Ativan)Indicatio ns:Anxiety state Take 1 Tablet by mouth 2 times a day as needed for Anxiety or Insomnia. 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 (Household - for ages [...] Sign Reading Time Taken Comments Blood Pressure 102/68 01/31/2025 12:52 PM EDT Pulse 85 01/31/2025 12:51 PM EDT Temperature 36.4 °C (97.6 °F) 01/31/2025 12:51 PM E DT Respiratory Rate 16 01/31/2025 12:51 PM EDT Oxygen Saturation 95% 01/31/2025 12:52 PM EDT ra-amb Inhaled Oxygen Concentration - - Weight 53.1 kg (117 lb) 01/31/2025 12:51 PM EDT Height 144.8 cm (4' 9") 01/31/2025 12:51 PM EDT Body Mass Index 25.32 01/31/2025 12:51 PM EDT documented in this encounter Progress Notes * Conner Calvo PA-C - 01/31/2025 12:33 PM EDT Images from the original note were not included. 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 HPI: Sera Gutiérrez is a 84 year old female who was last evaluated in the office on 05/05/[address] Kimbrough. During that visit patient presented steady respiratory symptoms no significant shortness of breath and no recent hospitalizations. Patient was complaint with her Eliquis and was not using her r escue inhaler at all. Patient has a history of smoking cigarettes and quit about 45 years ago. Here today for Pulmonary follow up. Patient is accompanied by her friend. Utilized a cane. She reported mild shortness of breath on exertion, she does not use stairs, but she said that when she is walking or getting a shower sometimes she needs to slow down because she feels a little "winded" She does not think is getting progressively worse, just about the same is being in last several years. She still does not use any rescue inhaler. She see a neurology due to her Parkinson and she alsosee a GI specialist due to dysphagia. Respiratory Symptoms: Cough: seldom Sputum: no Hemoptysis: no Wheeze: no Sinus Symptoms/Seasonal Allergies: no Medications: Flonase Reflux: yes Medications: Omeprazole 49 mg Triggers: anything Nocturnal symptoms: Orthopnea: No Paroxysmal nocturnal dyspnea: No Sleeps in bed on her side with 1 pillows. Swelling: No Dysphagia: Yes Pulmonary Therapies: Inhalers: none Other: Oxygen: no CPAP/BIPAP: no Respiratory Vaccines: overdue Exacerbations/Hospitalizations: Denies recent hospitalization/exacerbations. No recent prednisone use. 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 All others negative other than those noted in the HPI. Constitutional: No change in weight, No weakness, No fatigue and No fevers, No sweats or chills. HEENT: Denies excessive dry eye, dry mouth or hoarseness. Denies difficulty swallowing. Cardiac: No chest pain. No edema, No palpitations and No syncope. No lightheadedness/dizziness. Resp: See HPI. GI:No abdominal pain, No change in bowel habits, No significant heartburn, No nausea, No vomiting, No diarrhea, No constipation, No blood in stools or black tarry stools. Heme: No abnormal bleeding, No bruising. Neuro: Normal balance, No headaches, No loss of balance. OBJECTIVE/PHYSICAL EXAM: Blood pressure 102/68, pulse 85, temperature 36.4 °C (97.6 °F), temperature source Tympanic, resp. rate 16, height 1.448 m (4' 9"), weight 53.1 kg (117 lb), SpO2 95%. General: No acute distress. A+Ox3. Eyes: Conjunctiva are pink and non-injected, sclera clear Oropharynx: No exudate, no erythema. Buccal mucosa and tongue normal Cardiac: Regular rate & rhythm. No murmurs. No JVD. Resp: Respirations even and unlabored. Normal vesicular sounds to auscultation. No wheezes, rhonchi, or crackles auscultated. Pulses: Radial=2/4 bilaterally Abdomen: Soft. Nontender. No masses or organomegaly. No abdominal bruits. Extremities: No edema. No clubbing or cyanosis. Neurologic: No focal deficits. Skin: No rashes or lesions. DATA: Labs & Imaging Reviewed Below: LABS 11/26/2024 Latest Reference Range & Units 11/26/24 13:18 CBC Rpt ! CBC WITH WBC DIFFERENTIAL Rpt ! WBC 4.00 - 10.80 K/uL 7.77 RBC 3.85 - 5.15 M/uL 3.51 HGB 12.0 - 15.3 g/dL 11.9 (L) HCT 36.0 - 45.2 % 37.4 MCV 81.5 - 97.5 fL 106.6 MCH 27.0 - 34.0 pg 33.9 MCHC 32.0 - 36.0 g/dL 31.8 RDW 11.5 - 15.5 % 13.7 PLT 140 - 400 K/uL 341 MPV 6.6 - 11.1 fL 9.3 NRBC % <=0 /100 WBCs 0 Absolute Neutrophils 1.80 - 7.70 K/uL 5.65 Absolute Lymphocytes 1.00 - 4.80 K/ul 1.43 Absolute Monocytes 0.00 - 1.10 K/uL 0.42 Absolute Eosinophils 0.00 - 0.70 K/uL 0.13 Absolute Basophils 0.00 - 0.20 K/uL 0.04 Absolute Immature Granulocytes 0.00 - 0.20 K/uL 0.10 Neutrophils % 40.0 - 75.0 % 72.7 Lymphocytes % 18.0 - 42.0 % 18.4 Monocytes % 1.0 - 11.0 % 5.4 Eosinophils % 0.0 - 6.0 % 1.7 Basophils % 0.0 - 2.0 % 0.5 Immature Granulocytes % 0.0 - 2.0 % 1.3 IRON SCREEN, INCLUDING TIBC Rpt Iron 33 - 151 ug/dL 66 Iron Binding Capacity 250 - 425 ug/dL 251 !: Data is abnormal (L): Data is abnormally low Rpt: View report in Results Review for more information CHEST CT W/ contrast 01/09/2025 REVIEWED I personally review the CT, I did not see any significant blood clot, there is a small shade on thesubsegmental arteries that could be a non occlusive pulmonary embolism. There is no radiology report for those images. Review of patient's allergies indicates: Allergen Reactions Sulfa Antibiotics Edema airway Tolterodine Edema airway Detrol LA Doxycycline Flushing Erythromycin Drowsy Flexeril [Cyclobenzaprine Hcl] Worsened rls, made her heart pound Pepcid [Famotidine] Other (Please comment) GI upset, nausea Nitroglycerin Other reaction(s): Headache Current Outpatient Medications Medication Sig Dispense Refill [...] BREAKFAST OR OTHER MEDS) 90 Tablet 1 Albuterol Sulfate HFA 108 (90 Base) MCG/ACT [...] 1 tablet 3x daily 270 Tablet 1 Fluticasone Propionate 50 MCG/ACT Nasal Suspension (Flonase) Administer 2 Sprays into each nostril in the morning. 16 g 5 LORazepam 0.5 MG Oral Tablet (Ativan) Take 1 Tablet by mouth 2 times a day as needed for Anxiety orInsomnia. 30 Tablet 0 tiZANidine HCl 2 MG Oral Tablet (Zanaflex) TAKE 1 TABLET BY MOUTH TWICE A DAY 60 Tablet 1 No current facility-administered medications for this visit. 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 No mold. Social Needs Financial Resource Strain: Low Risk (11/26/2024) Financial Resource Strain Do you have any trouble paying for your medications, or do you think you might in the future? (Adult - for ages 18 years and over): No Food Insecurity: No Food Insecurity (11/26/2024) Food Insecurity Worried About Running Out of Food in the Last Year: Never true Ran Out of Food in the Last Year: Never true Do you need food for this week? (Adult - for ages 18 years and over): No Transportation Needs: No Transportation Needs (11/26/2024) Transportation Needs Has lack of transportation kept you from medical appointments, meetings, work, or from getting things needed for daily living? Check all that apply. (Adult - for ages 18 years and over): No Social Connections: Socially Integrated (11/26/2024) Social Connections How often do you feel lonely or isolated from those around you? (Adult - for ages 18 years and over): Never Housing Stability: Low Risk (11/26/2024) Housing Stability Do you currently live in a long-term or have no steady place to sleep at night? (Adult - for ages 18 years and over): No Are you homeless or worried that you might be in the future? (Adult - for ages 18 years and over): No IMPRESSIONS History of recurrent pulmonary embolism on Chronic AC w/ Eliquis GERD Parkinson's disease on Carbidopa Ambulatory dysfunction High risk of aspiration pneumonia High risk of fall ASSESSMENT/PLAN: Pfts 6MWT Nocturnal Oxymetry Aspiration precautions Fall precautions Avoid sick contacts Counseling on physical activity Follow up in 4 weeks to review test results or sooner if symptoms fail to improved or get worse. DISPOSITION: Follow up 4weeks or sooner if symptoms worsen/fail to improve. All questions were answered to the patients satisfaction. Patient advised to report to ED with any and all emergencies. The patient agrees to the above plan and will call with additional questions or concerns. I spent a total of 35 minutes on the date of service in preparation, delivery, and documentation ofthe care provided to Sera Gutiérrez excluding any time spent in the performance of separately billedservices. This chart was completed in part utilizing [employer] Voice Recognition Software. Grammatical errors, random word insertions, prounoun errors, and incomplete sentences are an occasional consequence of this system due to software limitations, ambient noise, and hardware issues. Any formal questions or concerns about the content, text, or information contained within the body of this dictation should be directly addressed to the provider for clarification. Conner Quinn PA-C Pulmonary & Thoracic Medicine [facility] Cosigned by Venkatesh Kimbrough MD at 01/31/2025 3:43 PM EDT Associated attestation - Venkatesh Kimbrough MD - 01/31/2025 3:43 PM EDT I have reviewed the advanced practitioner's documentation on the date of service referenced in note, and I agree with, and take responsibility for the plan of care. documented in this encounter Nursing Notes * Roxanne Narvaez LPN - 01/31/2025 12:53 PM EDT Chief Complaint Patient presents with Follow Up Return pulm. 1 year. Pulm embolis shortness of breath with exertion. Interm History/Respiratory Symptoms Cough: no Hemoptysis: no Sinus Symptoms: yes-congestion/drainage Hospitalizations: no ED Trips: Triggers: parkinson's disease Nocturnal: sleeps with head elevated. CPAP/BiPAP/O2: none DME Supplier: none Flu Vaccine: 2023 Pneumovax: 2007 Prevnar: 2016 COVID 19: x2. MMRC Dyspnea Scale = 4 (I am too breathless to leave the house or I am breathless when dressing) documented in this encounter Plan of Treatment Upcoming Encounters Date Type Department Care Team (Late st Contact Info) Description 03/04/2025 11:00 AM EDT Office Visit Interventional Pain Center [facility] [address] [place] [phone] Odalis Milian PA-C [address] [place] [id number] 03/15/2025 1:30 PM EDT PulmDiagnostic Pulmonary Function Lab, [facility] [address] [place] [phone] [place], [facility] [address] [place] [id number] 03/15/2025 2:00 PM EDT PulmDiagnostic Pulmonary Function Lab, [facility] [address] [place] [phone] [place], [facility] [address] [place] [address] 03/25/2025 10:30 AM EDT Imaging Radiology [facility] [address] [place] [phone] 04/02/2025 10:30 AM EDT Office Visit Gastroenterology, [facility] [address] [place] [phone] Lacy Tompkins CRNP [address] [place] [id number] 04/16/2025 1:00 PM EDT Office Visit Neurology [facility] [address] [place] [phone] Hung Ennis, DO [address] [place], [place] [id number] 05/27/2025 11:00 AM EDT Laboratory Laboratory, [facility] [address] [place] [phone] [facility] [address] [place] [address] 06/03/2025 2:30 PM EDT Office Visit Hematology/Oncology [facility] [place] [address] [facility] [place], [place] [phone] Betsy Tompkins CRNP [address] [place], [place] [address] [address] 07/08/2025 11:50 AM EDT Office Visit Family Practice, [facility] [address] [place] [address] Vika Castellanos, DO [address] [place] [address] Scheduled Orders Name Type Priority Associated Diagnoses Orde r Schedule PULMONARY STRESS TESTING Procedures Routine Dyspnea and respiratory abnormalities Expected: 02/01/2025, Expires: 03/02/2026 DIFFUSION CAPACITY (DLCO) Procedures Routine Dyspnea and respiratory abnormalities Expected: 02/07/2025, Expires: 03/02/2026 SPIROMETRY B/A BRONCHODILATOR Procedures Routine Dyspnea and respiratory abnormalities Expected: 02/07/2025, Expires: 03/02/2026 LUNG VOLUMES (PLETHYSMOGRAPHY) Procedures Routine Dyspnea and respiratory abnormalities Expected: 02/07/2025, Expires: 03/02/2026 NOCTURNAL HOME OXIMETRY (OP) Procedures Routine Dyspnea and respiratory abnormalities Ordered: 01/31/2025 Health Maintenance Due Date Last Done Comments Zoster Vaccines (2 of 3) 09/13/2013 07/19/2013 Adult Wellness Visit 10/30/2016 10/30/2015 COVID-19 Vaccine ( season) 2024 03/18/2021, 02/18/2021 TSH 02/19/2025 02/20/2024, 12/0 01/2023, 07/07/2023, Additional history exists DXA Scan 03/22/2025 03/22/2023, 03/17, 02/08/2012, Additional history exists Depression Monitoring 11/26/2025 11/26/2024 DTap/Tdap Vaccines (2 - Td or Tdap) 11/05/2031 11/05/2021, 07/22/2008 Pneumococcal Vaccine: 50+ Years Completed 10/30/2015, 06/14/2007 Influenza Vaccine (FLU shot) Completed 03/2024, 07/07/2023, 06/30/2022, Additional history exists VITAMIN D LEVEL ONCE IN A LIFETIME-USE SMARTSET# [id number] Completed 07/20/2024, 07/07/2023, 03/25/2022, Additional history exists [...] as of this encounter Visit Diagnoses Diagnosis Dyspnea and respiratory abnormalities- Primary Other dyspnea and respiratory abnormality Pulmonary embolism and infarction (HCC) Other pulmonary embolism and infarction Parkinson's disease without dyskinesia, with fluctuating manifestations (HCC) Torticollis, acquired Torticollis, unspecified documented in this encounter Care Teams Twx Operator Relationship Specialty Start Date End Date Vika Castellanos DO [address] [place] [id number] PCP - General Family Medicine 05/22/12 documented as of this encounter
--- OUTSIDE RECORDS SUMMARY | 2025-02-03 18:36 | External Medical Summary | Summary of Care ---
Author Name Unknown Organization [facility] Address [address] [place] [address] Phone [phone] Care Team Providers Care High Speed Operator Name Role Phone Vika Castellanos DO Primary Care Provider [phone] Reason for Referral * Evaluate & Treat - Unlimited Visits (Within 10 days (routine)) - Authorized Specialty Diagnoses / Procedures Referred By Contac t Referred To Contact Pain Management / Pain Medicine Diagnoses Parkinson's disease with dyskinesia, unspecified whether manifestations fluctuate (HCC) Neck pain on right side Vika Castellanos DO [facility] [place] [address] Phone: tel: fax: Referral ID Status Reason Start Date Expiration Date Visits Requested Visits Authorized [id number] Authorized Specialty Services Required 12/31/2024 999 999 Question Answer Referral Priority Within 10 days (routine) [facility] should this appointment be scheduled? [facility] Reason for referral? Interventional Pain Management - (Injection) What condition is the patient being referred for? Neck Axial What is the preferred location to have this test performed? [facility] Comments Patient Name: Sera Gutiérrez Date of : 1940 Department Phone Number: MRI or CT (if unable to have a MRI) is recommended if any of the following apply: 1. Patient has neck or back pain with radiation to extremities. A previous MRI will be accepted if symptoms unchanged since prior MRI. 2. Spinal surgery since last MRI. If yes, order a MRI with and without contrast. 3. Hx or ongoing cancer treatment. Patient will need spine x-ray (Ap/Lat) for axial neck or back pain if not done previously. Fax No. [facility] [phone] or contact front desk agent [phone] Fax No. [facility] [phone] or contact front desk agent [phone] Fax No. [facility] [phone] or contact front desk agent [phone] Reason for Visit * Reason Onset Date Comments Referral 12/31/2024 Encounter Details Date Type Department Care Team (Late st Contact Info) Description 12/31/2024 Telephone [facility] [place] [address] [place] [phone] Vika Castellanos DO [address] [place] [address] Referral Allergies Active Allergy Reactions Criticality Noted Date Comments Doxycycline Flushing 12/31/2024 Erythromycin 10/07/2021 Drowsy Cyclobenzaprine Hcl 02/19/2014 Worsened rls, made her heart pound Nitroglycerin Low 01/09/2023 Other reaction(s): Headache Famotidine Other (Please comment) 2023 GI upset, nausea Sulfa Antibiotics Edema airway High 08/11/2004 Tolterodine Edema airway High 08/11/2004 Detrol LA documented as of this encounter (statuses as of 01/10/2025) Medications acetaminophen (TYLENOL) 325 MG Tablet Take [...] OTHER MEDS) 90 Tablet 1 5 Active methylPREDNISolon e 4 MG Oral Tablet Therapy Pack (Medrol Dosepack) follow package directions 21 Tablet 5 Active Additional Information Patient not taking.Reported on 11/26/2024 Albuterol Sulfate HFA 108 (90 Base) MCG/ACT Inhalation Aerosol Solution Inhale 2 Puffs by mouth every 6 hours as needed (cough, chest congestion). 18 g 1 5 Active Omeprazole 40 MG Oral Capsule Delayed Release (PriLOSEC)Indicat ions:Gastroesopha geal reflux disease without esophagitis TAKE 1 CAPSULE BY MOUTH EVERY DAY IN THE MORNING 90 Capsule 5 Active Gabapentin 300 MG Oral Capsule (Neurontin)Indica tions:New onset of headaches after age 50 TAKE 1 CAPSULE BY MOUTH TWICE DAILY 180 Capsule 5 Active Apixaban 5 MG Oral Tablet (Eliquis)Indicati ons: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),care home current use of anticoagulant therapy TAKE 1 [...] 3x daily 270 Tablet 1 5 Active tiZANidine HCl 2 MG Oral Tablet (Zanaflex) TAKE 1 TABLET BY MOUTH TWICE A DAY 60 Tablet 1 5 Active Fluticasone Propionate 50 MCG/ACT Nasal Suspension (Flonase) Administer 2 Sprays into each nostril in the morning. 16 g 5 5 Active LORazepam 0.5 MG Oral Tablet (Ativan)Indicatio ns:Anxiety state Take 1 Tablet by mouth 2 times a day as needed for Anxiety or Insomnia. 30 Tablet 5 Active documented as of this encounter (statuses as of 01/10/2025) Active Problems Problem Noted Date Diagnosed Date Long-term current use of benzodiazepine 05/28/20 24 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 01/11/2024 Senile osteoporosis 07/07/2023 care home current use of anticoagulant therapy 0 06/30/2022 [...] as of this encounter (statuses as of 01/10/2025) Resolved Problems Problem Noted Date Diagnosed Date [...] as of this encounter (statuses as of 01/10/2025) Immunizations Name Administration Dates Next Due COVID-19 [...] No 11/26/2024 Does the household have a [facility] source of income? (Household - for ages [...] encounter Miscellaneous Notes * Telephone Encounter - Mallory Rothman OSA - 01/02/2025 11:26 AM EDT Done. 01/02/2025 * Telephone Encounter - Vika Castellanos DO - 12/31/2024 2:17 PM EDT Touched base with her neurologist, he had suggested pain medicine, hopefully they can see them locally. I placed the referral. * Telephone Encounter - Vika Castellanos DO - 12/31/2024 2:17 PM EDT ----- Message from Hung Ennis DO sent at 12/31/2024 1:53 PM EDT ----- Hi Dr. Bryson dose botox for torticollis . However if it is thought to be more musculoskeletal pain I often refer to [facility]ibal Bautista for trigger point injections ----- Message ----- From: Vika Castellanos DO Sent: 12/31/2024 12:35 PM EDT To: Hung Ennis DO Afternoon, I am seeing Sera and she is still having more neck pain, worse on the L. Do you are anyof the other neurologist do botox for her neck pain? Let me know when you can thank you Vika Castellanos documented in this encounter Plan of Treatment Upcoming Encounters Date Type Department Care Team (Late st Contact Info) Description 01/31/2025 10:00 AM EDT Office Visit Interventional Pain Center [facility] [address] [place] [phone] Odalis Milian PA-C [address] [place] [address] 03/25/2025 10:30 AM EDT Imaging Radiology [facility] [address] [place] [phone] 04/02/2025 10:30 AM EDT Office Visit Gastroenterology, [facility] [address] [place] [phone] Lacy Tompkins CRNP [address] [place] [address] 04/16/2025 1:00 PM EDT Office Visit Neurology [facility] [address] [facility] [place], [place] [address] Hung Ennis DO [address] [facility] [place], [place] [address] 05/27/2025 11:00 AM EDT Laboratory Laboratory, Carol Bullock 226 [facility] [place] [phone] [facility] [place] [address] 06/03/2025 2:30 PM EDT Office Visit Hematology/Oncology [facility] [address] [place], [place] [phone] Betsy Tompkins CRNP [address] [facility] [place] [address] 07/08/2025 11:50 AM EDT Office Visit Family Practice, Carol Burgos [address] [facility] [place] [phone] Vika Castellanos DO [address] [facility] [place] [address] Scheduled Referrals Name Type Priority Associated Diagnoses Orde r Schedule PAIN MEDICINE REFERRAL OP Referral Within 10 days (routine) Parkinson's disease with dyskinesia, unspecified whether manifestations fluctuate (HCC) Neck pain on right side Ordered: 12/31/2024 Health Maintenance Due Date Last Done Comments Zoster Vaccines (2 of 3) 09/13/2013 07/19/2013 Adult Wellness Visit 10/30/2016 10/30/2015 COVID-19 Vaccine (3 - season) 2024 03/18/2021, 02/18/2021 TSH 02/19/2025 02/20/2024, 12/0 01/2023, 07/07/2023, Additional history exists DXA Scan 03/22/2025 03/22/2023, 03/17, 02/08/2012, Additional history exists Depression Monitoring 11/26/2025 11/26/2024 DTap/Tdap Vaccines (2 - Td or Tdap) 11/05/2031 11/05/2021, 07/22/2008 Pneumococcal Vaccine: 50+ Years Completed 10/30/2015, 06/14/2007 Influenza Vaccine (FLU shot) Completed 03/2024, 07/07/2023, 06/30/2022, Additional history exists VITAMIN D LEVEL ONCE IN A LIFETIME-USE SMARTSET# [id number] Completed 07/20/2024, 07/07/2023, 03/25/2022, Additional history exists [...] dyskinesia, unspecified whether manifestations fluctuate (HCC)- Primary Neck pain on right side Cervicalgia documented in this encounter Care Teams High Speed Operator Relationship Specialty Start Date End Date Vika Castellanos DO [address] [place] [id number] PCP - General Family Medicine 05/22/12 documented as of this encounter
--- OUTSIDE RECORDS SUMMARY | 2025-02-03 18:36 | External Medical Summary | Summary of Care ---
Author Name Unknown Organization [facility] Address [address] [place] [address] Phone [phone] Care Team Providers Care Denture Model Maker Name Role Phone Vika Castellanos DO Primary Care Provider Reason for Visit * Reason Comments Follow Up Return pulm. 1 year. Pulm embolis shortness of breath with exertion. 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 Grammatical errors, random [...] Conner Quinn PA-C Pulmonary & Thoracic Medicine [facility] Cosigned by Venkatesh Kimbrough MD at [...] AM EDT Office Visit Interventional Pain Center [facility] [address] [place] [phone] Odalis Milian PA-C [address] [place] [address] 03/15/2025 1:30 PM EDT PulmDiagnostic Pulmonary Function Lab, [facility] [address] [place] [phone] [place] [address] [place] [address] 03/15/2025 2:00 PM EDT PulmDiagnostic Pulmonary Function Lab, [facility] [address] [place] [phone] [place] [address] [place] [address] 03/25/2025 10:30 AM EDT Imaging Radiology [facility] [address] [place] [phone] 04/02/2025 10:30 AM EDT Office Visit Gastroenterology, [facility] [address] [place] [phone] Lacy Tompkins CRNP [address] [place] [address] 04/16/2025 1:00 PM EDT Office Visit Neurology [facility] [address] [place] [phone] Hung Ennis, DO [address] [place], [place] [address] 05/27/2025 11:00 AM EDT Laboratory Laboratory, [place] [address] [place] [phone] [facility] [address] [place] [address] 06/03/2025 2:30 PM EDT Office Visit Hematology/Oncology [facility] [place] [address] [facility] [place], [place] [phone] Betsy Tompkins CRNP [address] [place], [place] [address] [address] 07/08/2025 11:50 AM EDT Office Visit Family Practice, Carol Burgos [address] [place] [address] Vika Castellanos, DO [address] [facility] [place] [address] Scheduled Orders Name Type Priority Associated Diagnoses [...] D LEVEL ONCE IN A LIFETIME-USE SMARTSET# [id number] Completed 07/20/2024, 07/07/2023, 03/25/2022, Additional history exists [...] unspecified documented in this encounter Care Teams Denture Model Maker Relationship Specialty Start Date End Date Vika Castellanos DO [address] [place] [address] PCP - General Family Medicine 05/22/12 documented as of this encounter
--- OUTSIDE RECORDS SUMMARY | 2025-02-03 18:36 | External Medical Summary | Summary of Care ---
Author Name Unknown Organization [facility] Address [address] [place] [address] Phone [phone] Care Team Providers Care Manager Publishing Name Role Phone Vika Castellanos DO Primary Care Provider [phone] Reason for Visit * Reason Comments eRx-Medication Refill Encounter Details Date Type Department Care Team (Late st Contact Info) Description 01/31/2025 Refill Neurology [facility] [address] [place] [address] Hung Ennis DO [address] [place] [address] Allergies Active Allergy Reactions Criticality Noted Date [...] TO BREAKFAST OR OTHER MEDS) 90 Tablet 11/15/19 25 Active Albuterol Sulfate HFA 108 [...] MG Oral Tablet (Eliquis)Indicat ions: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),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 180 Tablet 11/26/19 25 Active Lisinopril 2.5 MG Oral [...] as needed for drooling 2 mL 12 11/26/19 25 Active Carbidopa-Levodo pa 25-100 MG Oral Tablet (Sinemet) 1 tablet 3x daily 270 Tablet 1 11/27/19 25 Active Fluticasone Propionate 50 MCG/ACT Nasal Suspension (Flonase) Administer 2 Sprays into each nostril in the morning. 16 g 5 12/13/19 25 Active LORazepam 0.5 MG Oral Tablet (Ativan)Indicati ons:Anxiety state Take 1 Tablet by mouth 2 times a day as needed for Anxiety or Insomnia. 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 0 06/30/2022 [...] encounter Miscellaneous Notes * Telephone Encounter - Hung Ennis DO - 01/31/2025 10:55 AM EDT Signed Prescriptions: Disp Refills tiZANidine HCl 2 MG Oral Tablet (Zanaflex) 60 Tab*1 Sig: TAKE 1 TABLET BY MOUTH TWICE A DAY Authorizing Provider: HUNG ENNIS * Telephone Encounter - Daly Car LPN - 01/31/2025 10:27 AM EDTPending Prescriptions: Disp Refills tiZANidine HCl 2 MG Oral Tablet [Pharmacy *60 Tab*1 Sig: TAKE 1 TABLET BY MOUTH TWICE A DAY * Telephone Encounter - Daly Car LPN - 01/31/2025 10:26 AM EDT Last seen 08/31/24 * Telephone Encounter - Mya London - 01/31/2025 5:14 AM EDTPending Prescriptions: Disp Refills tiZANidine HCl 2 MG Oral Tablet [Pharmacy *60 Tab*1 Sig: TAKE 1 TABLET BY MOUTH TWICE A DAY * Telephone Encounter - Mya London - 01/31/2025 5:13 AM EDT Did you pend patient's preferred pharmacy and medication before forwarding?yes Pharmacy: [id number] [address] [facility] Pending Prescriptions: Disp Refills tiZANidine HCl 2 MG Oral Tablet (Zanaflex*60 Tab*1 Sig: TAKE 1 TABLET BY MOUTH TWICE A DAY Last Visit: 08/31/2024 (in office), 02/15/2020 (telemedicine) Next Visit: Visit date not found If no future appointments scheduled, and last appointment is greater than a year ago, please schedule patient for a follow-up appointment Last date the medication was ordered: 12/07/2024 Is this request for a controlled substance?No Urine Drug Screen:No results found. However, due to the size of the patient record, not all encounters were searched. Please check Results Review for a complete set of results. Patient Phone Numbers Labs: Lab Results Component Value Date/Time CREAT 0.9 12/31/2024 12:51 PM CREAT 0.70 11/25/2020 12:00 AM CREAT 0.9 10/28/2020 10:50 AM POTASSIUM 5.0 12/31/2024 12:51 PM POTASSIUM 3.9 11/25/2020 12:00 AM POTASSIUM 3.4 (L) 10/28/2020 10:50 AM TSH 0.45 02/20/2024 09:49 AM TSH 1.08 07/02/2020 12:37 PM LDL 97 10/28/2020 10:50 AM LDL 70 09/03/2019 08:43 AM ALT <5 (L) 08/12/2023 10:44 AM ALT 9 (L) 10/28/2020 10:50 AM HGBA1C 5.5 08/26/2010 08:31 AM documented in this encounter Plan of Treatment Upcoming Encounters Date Type Department Care Team (Late st Contact Info) Description 03/04/2025 11:00 AM EDT Office Visit Interventional Pain Center [facility] [address] [place] [phone] Odalis Milian PA-C [address] [place] [address] 03/25/2025 10:30 AM EDT Imaging Radiology [facility] [address] [place] [phone] 04/02/2025 10:30 AM EDT Office Visit Gastroenterology, [facility] [address] [place] [phone] Lacy Tompkins CRNP [address] [place] [address] 04/16/2025 1:00 PM EDT Office Visit Neurology [facility] [address] [facility] [place] [phone] Hung Ennis, [address] [facility] [place] [address] 05/27/2025 11:00 AM EDT Laboratory Laboratory, Carol Bullock [address] [place] [phone] Carol [facility] [place] [address] 06/03/2025 2:30 PM EDT Office Visit Hematology/Oncology [facility] 200 [facility] [place] [phone] Betsy Tompkins CRNP [address] [facility] [place] [address] 07/08/2025 11:50 AM EDT [facility] Carol Burgos [address] [place] [phone] Vika Castellanos DO [address] [place] [address] Health Maintenance Due Date Last Done Comments [...] D LEVEL ONCE IN A LIFETIME-USE SMARTSET# [id number] Completed 07/20/2024, 07/07/2023, 03/25/2022, Additional history exists [...] Not on filedocumented as of this encounter Care Teams Manager Publishing Relationship Specialty Start Date End Date Vika Castellanos DO [address] [place] [address] PCP - General Family Medicine 05/22/12 documented as of this encounter
--- OUTSIDE RECORDS SUMMARY | 2025-02-03 18:36 | External Medical Summary | Summary of Care ---
Author Name Unknown Organization [facility] Address [address] [place] [address] Phone [phone] Care Team Providers Care Financial Sales Consultant Name Role Phone Vika Castellanos DO Primary Care Provider [phone] Reason for Referral * Evaluate & Treat - Unlimited Visits (Within 10 days (routine)) - Authorized Specialty Diagnoses / Procedures Referred By Contac t Referred To Contact Pain Management / Pain Medicine Diagnoses Parkinson's disease with dyskinesia, unspecified whether manifestations fluctuate (HCC) Neck pain on right side Vika Castellanos DO [address] [facility] [place] [address] Phone: tel: fax: Referral ID Status Reason Start Date Expiration Date Visits Requested Visits Authorized [id number] Authorized Specialty Services Required 12/31/2024 999 999 [...] pain if not done previously. Fax No. [facility] [phone] or contact javascript front end developer [phone] Fax No. [facility] [phone] or contact javascript front end developer [phone] Fax No. [facility] [phone] or contact javascript front end developer [phone] Encounter Details Date Type Department Care Team (Late st Contact Info) Description 12/31/2024 Telephone [facility] [place] [facility] [place] [address] [place] [phone] Vika Castellanos DO [address] [place] [address] Allergies Active Allergy Reactions Criticality Noted Date Comments Doxycycline Flushing 12/31/2024 Erythromycin 10/07/2021 Drowsy Cyclobenzaprine Hcl 02/19/2014 Worsened rls, made her heart pound Nitroglycerin Low 01/09/2023 Other reaction(s): Headache Famotidine Other (Please comment) 2023 GI upset, nausea Sulfa Antibiotics Edema airway High 08/11/2004 Tolterodine Edema airway High 08/11/2004 Detrol LA documented as of this encounter (statuses as of 01/02/2025) Medications acetaminophen (TYLENOL) 325 MG Tablet Take [...] BY MOUTH TWICE DAILY 180 Capsule 1 5 Active Apixaban 5 MG Oral Tablet (Eliquis)Indicati ons: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),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 TAKE 1 [...] as of this encounter (statuses as of 01/02/2025) Active Problems Problem Noted Date Diagnosed Date Long-term current use of benzodiazepine 05/28/20 24 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 01/11/2024 Senile osteoporosis 07/07/2023 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 0 06/30/2022 [...] as of this encounter (statuses as of 01/02/2025) Resolved Problems Problem Noted Date Diagnosed Date [...] as of this encounter (statuses as of 01/02/2025) Immunizations Name Administration Dates Next Due COVID-19 [...] AM EDT Office Visit Interventional Pain Center [facility] [address] [place] [phone] Odalis Milian PA-C [address] [place] [address] 03/25/2025 10:30 AM EDT Imaging Radiology [facility] [address] [place] [phone] 04/02/2025 10:30 AM EDT Office Visit Gastroenterology, [facility] [address] [place] [phone] Lacy Tompkins CRNP [address] [place] [address] 04/16/2025 1:00 PM EDT Office Visit Neurology [facility] 200 [facility] [place], [place] [address] Hung Ennis DO 200 [facility] [place], [place] [address] 05/27/2025 11:00 AM EDT [facility] [place] [facility] [address] [facility] [place] [address] [facility] [place] [address] 06/03/2025 2:30 PM EDT Office Visit Hematology/Oncology [facility] 200 [facility] [place], [place] [phone] Betsy Tompkins CRNP 400 [facility] [place] [address] 07/08/2025 11:50 AM EDT Office Visit [facility] [place] [address] [facility] [place] [phone] Vika Castellanos DO 226 [facility] [place], [place] [phone] Scheduled Referrals Name Type Priority Associated Diagnoses Orde r Schedule PAIN MEDICINE REFERRAL OP Referral Within 10 days (routine) Parkinson's disease with dyskinesia, unspecified whether manifestations fluctuate (HCC) Neck pain on right side Ordered: 12/31/2024 Health Maintenance Due Date Last Done Comments Zoster Vaccines (2 of 3) 09/13/2013 07/19/2013 Adult Wellness Visit 10/30/2016 10/30/2015 COVID-19 Vaccine (3 season) 2024 03/18/2021, 02/18/2021 TSH 02/19/2025 02/20/2024, 12/0 01/2023, 07/07/2023, Additional history exists DXA Scan 03/22/2025 03/22/2023, 03/17, 02/08/2012, Additional history exists Depression Monitoring 11/26/2025 11/26/2024 DTap/Tdap Vaccines (2 - Td or Tdap) 11/05/2031 11/05/2021, 07/22/2008 Pneumococcal Vaccine: 50+ Years Completed 10/30/2015, 06/14/2007 Influenza Vaccine (FLU shot) Completed 03/2024, 07/07/2023, 06/30/2022, Additional history exists VITAMIN D LEVEL ONCE IN A LIFETIME-USE SMARTSET# [id number] Completed 07/20/2024, 07/07/2023, 03/25/2022, Additional history exists [...] Cervicalgia documented in this encounter Care Teams Financial Sales Consultant Relationship Specialty Start Date End Date Vika Castellanos DO [address] [place] [address] PCP - General Family Medicine 05/22/12 documented as of this encounter
--- OUTSIDE RECORDS SUMMARY | 2025-02-03 18:36 | External Medical Summary | Summary of Care ---
Author Name Unknown Organization [facility] Address [address] [facility] [address] Phone [phone] Care Team Providers Care Healthcare Financial Analyst Name Role Phone Art Castellanos DO Primary Care Provider [phone] Reason for Visit * Reason Onset Date Comments Medication Refill 01/10/2025 Encounter Details Date Type Department Care Team (Late st Contact Info) Description [facility] [facility] [address] [place] [phone] Art Castellanos DO [address] [place] [address] Anxiety state Allergies Active Allergy Reactions Criticality Noted Date Comments Doxycycline Flushing 12/31/2024 Erythromycin 10/07/2021 Drowsy Cyclobenzaprine Hcl 02/19/2014 Worsened rls, made her heart pound Nitroglycerin Low 01/09/2023 Other reaction(s): Headache Famotidine Other (Please comment) 2023 GI upset, nausea Sulfa Antibiotics Edema airway High 08/11/2004 Tolterodine Edema airway High 08/11/2004 Detrol LA documented as of this encounter (statuses as of 01/11/2025) Medications acetaminophen (TYLENOL) 325 MG Tablet Take [...] MEDS) 90 Tablet 1 11/15/19 25 Active methylPREDNISolon e 4 MG Oral Tablet Therapy Pack (Medrol Dosepack) follow package directions 21 Tablet 11/16/19 25 Active Additional Information Patient not taking.Reported on 11/26/2024 Albuterol Sulfate HFA 108 (90 Base) MCG/ACT Inhalation Aerosol Solution Inhale 2 Puffs by mouth every 6 hours as needed (cough, chest congestion). 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 16 g 5 12/13/19 25 Active LORazepam 0.5 MG Oral Tablet (Ativan)Indicatio ns:Anxiety state Take 1 Tablet by mouth 2 times a day as needed for Anxiety or Insomnia. 30 Tablet 01/12/20 25 Active LORazepam 0.5 MG Oral Tablet (Ativan)Indicatio ns:Anxiety state Take 1 Tablet by mouth 2 times a day as needed for Anxiety or Insomnia. 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 Authorizing Provider: ART CASTELLANOS * Telephone Encounter - Dayanara William LPN - 01/11/2025 10:42 AM EDTPending Prescriptions: Disp Refills LORazepam 0.5 MG Oral Tablet (Ativan) 30 Tab*0 Sig: Take 1 Tablet by mouth 2 times a day as needed for Anxiety or Insomnia. * Telephone Encounter - Dayanara William LPN - 01/11/2025 10:42 AM EDTPending Prescriptions: Disp Refills LORazepam 0.5 MG Oral Tablet (Ativan) 30 Tab*0 Sig: Take 1 Tablet by mouth 2 times a day as needed for Anxiety or Insomnia. * Telephone Encounter - Royal Alvarado, clinical advisor - 01/11/2025 9:48 AM EDT Pt calling to check on status of refill request. Caller can be reached at [phone]. Thank You, Royal Alvarado [facility] [employer] [facility] 01/11/2025, 9:48 AM * Telephone Encounter - Scott Pendleton [facility] - 01/11/2025 9:25 AM EDTPending Prescriptions: Disp Refills LORazepam 0.5 MG Oral Tablet (Ativan) 30 Tab*0 Sig: Take 1 Tablet by mouth 2 times a day as needed for Anxiety or Insomnia. * Telephone Encounter - Scott Pendleton [facility] - 01/11/2025 9:24 AM EDT I have reviewed the patient’s controlled substance dispensing history in the Prescription Drug Monitoring Program in compliance with the [facility] regulations before prescribing a controlled substance. PDMP checked on 01/11/2025. Pending Prescriptions: Disp Refills LORazepam 0.5 MG Oral Tablet (Ativan) 30 Tab*0 Sig: Take 1 Tablet by mouth 2 times a day as needed for Anxiety or Insomnia. Last Visit: 12/31/2024 (in office), Visit date not found (telemedicine) Next Visit: 07/08/2025 Date medication was last filled: 12/14/2024 Date medication is due for refill: 12/28/2024 Pharmacy: [id number] [facility] Is this request for a controlled substance? Yes and Urine Drug Screen Not completed Toxicology results: No results found. However, due to the size of the patient record, not all encounters were searched.Please check Results Review for a complete set of results. Please approve if appropriate. Thanks, Scott Pendleton Pharm.D. Clinical Pharmacist [facility] ([facility]) [phone] 01/11/2025, 9:24 AM * Telephone Encounter - Cade Alva PHARM Tech - 01/10/2025 11:03 AM EDT Did you pend patient's preferred pharmacy and medication before forwarding?yes Pharmacy: [id number] [facility] Pending Prescriptions: Disp Refills LORazepam 0.5 MG Oral Tablet (Ativan) 30 Tab*0 Sig: Take 1 Tablet by mouth 2 times a day as needed for Anxiety or Insomnia. Last Visit: 12/31/2024 (in office), Visit date not found (telemedicine) Next Visit: 07/08/2025 If no future appointments scheduled, and last appointment is greater than a year ago, please schedule patient for a follow-up appointment Last date the medication was ordered: 12/14/2024 Is this request for a controlled substance?Yes, What was the last refill date 12/14/2024 w/ quantity 30 and dosage 0.5 MG and Urine Drug Screen Not completed Urine [...] AM EDT Office Visit [facility] [address] [place] [phone] Odalis Milian PA-C [address] [place] [address] 03/25/2025 10:30 AM EDT Imaging Radiology [facility] [address] [phone] 04/02/2025 10:30 AM EDT Office Visit Gastroenterology, [facility] [address] [place] [address] Lacy Tompkins CRNP [address] [place] [address] 04/16/2025 1:00 PM EDT Office [facility] [address] [place] [address] Hung Ennis, DO [address] [place] [address] 05/27/2025 11:00 AM EDT Laboratory Laboratory, [facility] [address] [place] [phone] [facility] [address] [place] [address] 06/03/2025 2:30 PM EDT Office Visit Hematology/Oncology [facility] [place] [address] [facility] [phone] Betsy Tompkins CRNP [address] [place] [address] 07/08/2025 11:50 AM EDT Office Visit Family Practice, [place] [address] [address] Art Castellanos DO [address] [facility] [address] [place] [address] Health Maintenance Due Date Last Done Comments [...] D LEVEL ONCE IN A LIFETIME-USE SMARTSET# [id number] Completed 07/20/2024, 07/07/2023, 03/25/2022, Additional history exists [...] unspecified documented in this encounter Care Teams Healthcare Financial Analyst Relationship Specialty Start Date End Date Art Castellanos DO [address] [address] PCP - General Family Medicine 05/22/12 documented as of this encounter
--- OUTSIDE RECORDS SUMMARY | 2025-02-03 18:37 | External Medical Summary | Summary of Care ---
Author Name Unknown Organization [facility] Address [address] [facility] [address] Phone [phone] Care Team Providers Care Floatman Name Role Phone Vika Castellanos DO Primary Care Provider [phone] Reason for Visit * Reason Onset Date Comments Medication Refill 12/12/2024 Encounter Details Date Type Department Care Team (Late st Contact Info) Description 12/12/2024 [facility] [address] [phone] Semaj Jimenez MD [address] [address] Allergies Active Allergy Reactions Criticality Noted Date Comments Erythromycin 10/07/2021 Drowsy Cyclobenzaprine Hcl 02/19/2014 Worsened rls, made her heart pound Nitroglycerin Low 01/09/2023 Other reaction(s): Headache Famotidine Other (Please comment) 2023 GI upset, nausea Sulfa Antibiotics Edema airway High 08/11/2004 Tolterodine Edema airway High 08/11/2004 Detrol LA documented as of this encounter (statuses as of 12/13/2024) Medications acetaminophen (TYLENOL) 325 MG Tablet Take [...] congestion). 18 g 1 11/16/19 25 Active LORazepam 0.5 MG Oral Tablet (Ativan)Indicatio ns:Anxiety state Take 1 Tablet by mouth 2 times a day as needed for Anxiety or Insomnia. 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 16 g 5 12/13/19 25 Active Fluticasone Propionate 50 MCG/ACT Nasal Suspension (Flonase) Administer 2 Sprays into each nostril in the morning. 16 g 5 11/16/19 25 025 Discontin ued(Refil l) documented as of this encounter (statuses as of 12/13/2024) Active Problems Problem Noted Date Diagnosed Date [...] as of this encounter (statuses as of 12/13/2024) Resolved Problems Problem Noted Date Diagnosed Date [...] as of this encounter (statuses as of 12/13/2024) Immunizations Name Administration Dates Next Due COVID-19 [...] do you feel lonely or isolated from ose around you? Never 11/26/2024 Financial Resource [...] encounter Miscellaneous Notes * Telephone Encounter - Semaj Jimenez MD - 12/13/2024 7:40 AM ESTSigned Prescriptions: Disp Refills Fluticasone Propionate 50 MCG/ACT Nasal Campbell*16 g 5 Sig: Administer 2 Sprays into each nostril in the morning. Authorizing Provider: SEMAJ JIMENEZ * Telephone Encounter - Sofía Sanchez OSA - 12/12/2024 7:44 AM EST Did you pend patient's preferred pharmacy and medication before forwarding?yes Pharmacy: [id number] [address] [facility] Pending Prescriptions: Disp Refills Fluticasone Propionate 50 MCG/ACT Nasal S*16 g 5 Sig: Administer 2 Sprays into each nostril in the morning. Last Visit: 11/26/2024 (in office), Visit date not found (telemedicine) Next Visit: 12/31/2024 If no future appointments scheduled, and last appointment is greater than a year ago, please schedule patient for a follow-up appointment Last date the medication was ordered: 90 day Is this request for a controlled substance?No Urine Drug Screen:No results found. However, due to the size of the patient record, not all encounters were searched. Please check Results Review for a complete set of results. Patient Phone Numbers Labs: Lab Results Component Value Date/Time CREAT 0.8 07/20/2024 10:32 AM CREAT 0.70 11/25/2020 12:00 AM CREAT [...] Team (Late st Contact Info) Description 12/31/2024 11:50 AM EDT Office Visit [facility] [address] [facility] [place] [phone] Vika Castellanos, DO [address] [facility] [place] [address] 03/25/2025 10:30 AM EDT Imaging Radiology [facility] [address] [phone] 04/02/2025 10:30 AM EDT Office Visit Gastroenterology, [facility] [address] [place] [address] Lacy Tompkins CRNP [address] [address] 04/16/2025 1:00 PM EDT Office Visit Neurology [facility] [place] [address] [place] [address] Hung Ennis, DO [address] [place] [address] 05/27/2025 11:00 AM EDT Laboratory Laboratory, [address] [phone] Carol, Laboratory [address] [address] 06/03/2025 2:30 PM EDT Office Visit Hematology/On[facility] [address] [facility] [address] Betsy Tompkins CRNP [address] [place] [address] Health Maintenance Due Date Last Done Comments Zoster Vaccines (2 of 3) 09/13/2013 07/19/2013 Adult Wellness Visit 10/30/2016 10/30/2015 COVID-19 Vaccine (3 season) 2024 03/18/2021, 02/18/2021 TSH 02/19/2025 02/20/2024, 1201/2023, 07/07/2023, Additional history exists DXA Scan 03/22/2025 03/22/2023, 03/17, 02/08/2012, Additional history exists Depression Monitoring 11/26/2025 11/26/2024 DTap/Tdap Vaccines (2 - Td or Tdap) 11/05/2031 11/05/2021, 07/22/2008 Pneumococcal Vaccine: 50+ Years Completed 10/30/2015, 06/14/2007 Influenza Vaccine (FLU shot) Completed 03/2024, 07/07/2023, 06/30/2022, Additional history exists VITAMIN D LEVEL ONCE IN A LIFETIME-USE SMARTSET# [id number] Completed 07/20/2024, 07/07/2023, 03/25/2022, Additional history exists [...] filedocumented as of this encounter Care Teams Floatman Relationship Specialty Start Date End Date Vika Castellanos DO [address] [address] PCP - General Family Medicine 05/22/12 documented as of this encounter
--- OUTSIDE RECORDS SUMMARY | 2025-02-03 18:37 | External Medical Summary | Summary of Care ---
Author Name Unknown Organization [facility] Address [address] [place] [address] Phone [phone] Care Team Providers Care Oxygen Tank Filler Name Role Phone Vika Castellanos DO Primary Care Provider [phone] Reason for Visit * Reason Comments eRx-Medication Refill Encounter Details Date Type Department Care Team (Late st Contact Info) Description 12/07/2024 Refill Neurology [facility] [address] [place] [address] Hung Ennis DO [address] [place] [address] Allergies Active Allergy Reactions Criticality Noted Date Comments Erythromycin 10/07/2021 Drowsy Cyclobenzaprine Hcl 02/19/2014 Worsened rls, made her heart pound Nitroglycerin Low 01/09/2023 Other reaction(s): Headache Famotidine Other (Please comment) 2023 GI upset, nausea Sulfa Antibiotics Edema airway High 08/11/2004 Tolterodine Edema airway High 08/11/2004 Detrol [place] documented as of this encounter (statuses as of 12/07/2024) Medications acetaminophen (TYLENOL) 325 MG Tablet Take [...] MEDS) 90 Tablet 1 11/15/19 25 Active methylPREDNISolo ne 4 MG Oral Tablet Therapy Pack (Medrol Dosepack) follow package directions 21 Tablet 11/16/19 25 Active Additional Information Patient not taking.Reported on 11/26/2024 Fluticasone Propionate 50 MCG/ACT Nasal Suspension (Flonase) Administer 2 Sprays into each nostril in the morning. 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 0 06/30/2022 [...] as of this encounter (statuses as of 12/07/2024) Resolved Problems Problem Noted Date Diagnosed Date [...] as of this encounter (statuses as of 12/07/2024) Immunizations Name Administration Dates Next Due COVID-19 [...] Telephone Encounter - Hung Ennis DO - 12/07/2024 12:39 PM EST Signed Prescriptions: Disp Refills tiZANidine HCl 2 MG Oral Tablet (Zanaflex) 60 Tab*1 Sig: TAKE 1 TABLET BY MOUTH TWICE A DAY Authorizing Provider: HUNG ENNIS * Telephone Encounter - Daly Car LPN - 12/07/2024 10:50 AM ESTPending Prescriptions: Disp Refills tiZANidine HCl 2 MG Oral Tablet [Pharmacy *60 Tab*1 Sig: TAKE 1 TABLET BY MOUTH TWICE A DAY * Telephone Encounter - Daly Car LPN - 12/07/2024 10:49 AM EST Last Ov 08/31/24 Next OV 04/16/25 Last refill 10/11/24 * Telephone Encounter - Mya [place] - 12/07/2024 5:08 AM ESTPending Prescriptions: Disp Refills tiZANidine HCl 2 MG Oral Tablet [Pharmacy *60 Tab*1 Sig: TAKE 1 TABLET BY MOUTH TWICE A DAY * Telephone Encounter - Mya London julia - 12/07/2024 5:06 AM EST Did you pend patient's preferred pharmacy and medication before forwarding?yes Pharmacy: [id number] [address] [facility] Pending Prescriptions: Disp Refills tiZANidine HCl 2 MG Oral Tablet (Zanaflex*60 Tab*1 Sig: TAKE 1 TABLET BY MOUTH TWICE A DAY Last Visit: 08/31/2024 (in office), 02/15/2020 (telemedicine) Next Visit: 04/16/2025 If no future appointments scheduled, and last appointment is greater than a year ago, please schedule patient for a follow-up appointment Last date the medication was ordered: 10/11/2024 Is this request for a controlled substance?No [...] Description 12/31/2024 11:50 AM EDT Office Visit [facility] [place] [address] [phone] Vika Castellanos, DO [address] [place] [address] 03/25/2025 10:30 AM EDT Imaging Radiology [facility] [address] [place] [phone] 04/02/2025 10:30 AM EDT Office Visit Gastroenterology, [facility] [address] [place] [address] Lacy Tompkins CRNP [address] [place] [address] 04/16/2025 1:00 PM EDT Office Visit Neurology [facility] 200 [facility] [place] [address] Hung Ennis DO 200 [facility] [place] [address] 05/27/2025 11:00 AM EDT Laboratory Laboratory, Carol [address] [place] [phone] [facility] [address] [address] 06/03/2025 2:30 PM EDT Office Visit Hematology/Oncology [facility] [address] [place] [phone] Betsy Tompkins CRNP [address] [place] [address] Health Maintenance Due Date Last Done Comments [...] D LEVEL ONCE IN A LIFETIME-USE SMARTSET# [id number] Completed 07/20/2024, 07/07/2023, 03/25/2022, Additional history exists [...] filedocumented as of this encounter Care Teams Oxygen Tank Filler Relationship Specialty Start Date End Date Vika Castellanos DO [address] [address] PCP - General Family Medicine 05/22/12 documented as of this encounter
--- OUTSIDE RECORDS SUMMARY | 2025-02-03 18:37 | External Medical Summary | Summary of Care ---
Author Name Unknown Organization [facility] Address [address] [place] [address] Phone [phone] Care Team Providers Care Management Consultant Name Role Phone Vika Castellanos DO Primary Care Provider [phone] Reason for Visit * Reason Onset Date Comments Medication Refill 11/27/2024 Encounter Details Date Type Department Care Team (Late st Contact Info) Description 11/27/2024 Refill Neurology [facility] [address] [place] [address] Hung Ennis DO [address] [place] [address] Allergies Active Allergy Reactions Criticality Noted Date Comments Erythromycin 10/07/2021 Drowsy Cyclobenzaprine Hcl 02/19/2014 Worsened rls, made her heart pound Nitroglycerin Low 01/09/2023 Other reaction(s): Headache Famotidine Other (Please comment) 2023 GI upset, nausea Sulfa Antibiotics Edema airway High 08/11/2004 Tolterodine Edema airway High 08/11/2004 Detrol [place] documented as of this encounter (statuses as of 11/27/2024) Medications acetaminophen (TYLENOL) 325 MG Tablet Take [...] morning. 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 care registered nurse current use of anticoagulant therapy TAKE 1 [...] daily 270 Tablet 1 11/27/19 25 Active Carbidopa-Levodop a 25-100 MG Oral Tablet (Sinemet) 1 tablet 3x daily 270 Tablet 1 02/23/20 24 025 Discontin ued(Refil l) documented as of this encounter (statuses as of 11/27/2024) Active Problems Problem Noted Date Diagnosed Date [...] as of this encounter (statuses as of 11/27/2024) Resolved Problems Problem Noted Date Diagnosed Date [...] as of this encounter (statuses as of 11/27/2024) Immunizations Name Administration Dates Next Due COVID-19 [...] Telephone Encounter - Hung Ennis DO - 11/27/2024 11:35 AM EST Signed Prescriptions: Disp Refills Carbidopa-Levodopa 25-100 MG Oral Tablet (*270 Ta*1 Si tablet 3x dailyAuthorizing Provider: HUNG ENNIS documented in this encounter Plan of Treatment Upcoming Encounters Date Type Department Care Team (Late st Contact Info) Description 12/03/2024 2:30 PM EST Office Visit Hematology/On[facility] [address] [facility] [phone] Betsy Tompkins CRNP 400 [facility] [place] [address] 12/31/2024 11:50 AM EDT [facility] 226 [facility] [place] [phone] Vika Castellanos DO [address] [facility] [place] [address] 03/25/2025 10:30 AM EDT Imaging Radiology [facility] [address] [phone] 04/02/2025 10:30 AM EDT Office Visit Gastroenterology, [facility] [address] [place] [address] Lacy Tompkins CRNP [address] [place] [address] 04/16/2025 1:00 PM EDT Office Visit Neurology [facility] [address] [place] [address] Hung Ennis DO 200 [facility] [place] [address] Health Maintenance Due Date Last Done Comments [...] D LEVEL ONCE IN A LIFETIME-USE SMARTSET# [id number] Completed 07/20/2024, 07/07/2023, 03/25/2022, Additional history exists [...] filedocumented as of this encounter Care Teams Management Consultant Relationship Specialty Start Date End Date Vika Castellanos DO [address] [address] PCP - General Family Medicine 05/22/12 documented as of this encounter
--- OUTSIDE RECORDS SUMMARY | 2025-02-03 18:37 | External Medical Summary | Summary of Care ---
Author Name Unknown Organization [facility] Address [address] [place] [address] Phone [phone] Care Team Providers Care Nut Culler Name Role Phone Vika Castellanos DO Primary Care Provider Reason for Visit * Reason Onset Date Comments TRIAGE 01/01/2025 Encounter Details Date Type Department Care Team (Late st Contact Info) Description 01/01/2025 Telephone Access Center, [place] [address] [facility] *DO NOT REMOVE THIS DEPARTMENT* [place] [phone] Services, Scheduling [address] [place] [address] TRIAGE Allergies Active Allergy Reactions Criticality Noted Date [...] MG Oral Tablet (Eliquis)Indicati ons: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),USP current use of anticoagulant therapy TAKE 1 [...] fluctuating manifestations 01/11/2024 Senile osteoporosis 07/07/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 documented in this encounter Plan of Treatment Upcoming Encounters Date Type Department Care Team (Late st Contact Info) Description 03/25/2025 10:30 AM EDT Imaging Radiology [facility] [address] [place] [phone] 04/02/2025 10:30 AM EDT Office Visit Gastroenterology, [facility] [address] [place] [phone] Lacy Tompkins CRNP [address] [place] [address] 04/16/2025 1:00 PM EDT Office Visit Neurology [facility] [address] [facility] [place] [address] [place], [address] [facility] [address] 05/27/2025 11:00 AM EDT [facility] [address] [facility] [phone] [place], [facility] 226 [facility] [place] [address] 06/03/2025 2:30 PM EDT Office Visit Hematology/Oncology [facility] [address] [facility] [place] [phone] Betsy Tompkins CRNP [address] [place] [address] 07/08/2025 11:50 AM EDT Office Visit [facility] K[address] Burgos [address] [place] [phone] Vika Castellanos DO [address] [place] [address] Health Maintenance Due Date Last Done Comments [...] D LEVEL ONCE IN A LIFETIME-USE SMARTSET# [id number] Completed 07/20/2024, 07/07/2023, 03/25/2022, Additional history exists [...] filedocumented as of this encounter Care Teams Nut Culler Relationship Specialty Start Date End Date Vika Castellanos DO [address] [place] [address] PCP - General Family Medicine 05/22/12 documented as of this encounter
--- OUTSIDE RECORDS SUMMARY | 2025-02-03 18:37 | External Medical Summary | Summary of Care ---
Author Name Unknown Organization [facility] Address [address] [facility] [place] [address] Phone [phone] Care Team Providers Care Custom Miller Name Role Phone Vika Castellanos DO Primary Care Provider [phone] Reason for Visit * Reason Comments Follow Up Encounter Details Date Type Department Care Team (Late st Contact Info) Description 12/03/2024 2:30 PM EST Office [facility] [place] [address] [facility] [place] [phone] Betsy Tompknis CRNP 400 [facility] [place] [address] Iron deficiency anemia due to chronic blood loss*; 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) Allergies Active Allergy Reactions Criticality Noted Date Comments Erythromycin 10/07/2021 Drowsy Cyclobenzaprine Hcl 02/19/2014 Worsened rls, made her heart pound Nitroglycerin Low 01/09/2023 Other reaction(s): Headache Famotidine Other (Please comment) 2023 GI upset, nausea Sulfa Antibiotics Edema airway High 08/11/2004 Tolterodine Edema airway High 08/11/2004 Detrol LA documented as of this encounter (statuses as of 12/04/2024) Medications acetaminophen (TYLENOL) 325 MG Tablet Take [...] the morning. 90 Tablet 9 4 Active tiZANidine HCl 2 MG Oral Tablet (Zanaflex) 1 TABLET TWICE A DAY 60 Tablet 1 4 Active Folic Acid 1 MG Oral [...] the morning. 16 g 5 5 Active Albuterol Sulfate HFA 108 (90 Base) MCG/ACT Inhalation Aerosol Solution Inhale 2 Puffs by mouth every 6 hours as needed (cough, chest congestion). 18 g 1 5 Active LORazepam 0.5 MG Oral Tablet (Ativan)Indicatio ns:Anxiety state Take 1 Tablet by mouth 2 times a day as needed for Anxiety or Insomnia. 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 0 06/30/2022 [...] as of this encounter (statuses as of 12/04/2024) Resolved Problems Problem Noted Date Diagnosed Date [...] as of this encounter (statuses as of 12/04/2024) Immunizations Name Administration Dates Next Due COVID-19 [...] Sign Reading Time Taken Comments Blood Pressure 96/68 12/03/2024 2:23 PM EST Pulse 82 12/03/2024 2:23 PM EST Temperature 36.9 °C (98.4 °F) 12/03/2024 2:23 PM ES T Respiratory Rate - - Oxygen Saturation 92% 12/03/2024 2:23 PM EST Inhaled Oxygen Concentration - - Weight 53.5 kg (118 lb) 12/03/2024 2:23 PM EST Height - - Body Mass Index 25.53 08/31/2024 12:51 PM EST documented in this encounter Progress Notes * Betsy Tompkins CRNP - 12/03/2024 2:18 PM EST Hematology/Oncology Outpatient Clinic note [facility] [place] [address] [place] [address] Name: Sera Gutiérrez Date: 12/03/2024 CHIEF COMPLAINT: Sera Gutiérrez is a 84 year old female patient of MINESH Ruiz here today for f/u visit today. From Patient chart confirmed with patient. HEMATOLOGY/ONCOLOGY DIAGNOSIS: Iron deficiency anemia Last Colonoscopy 2015 significant for angiectasias in ascending colon. History of recurrent pulmonary emboli TREATMENT HISTORY: IV Venofer while inpatient at [facility] in June 2024 CURRENT TREATMENT: Ferrous sulfate 325 mg daily Folic acid 1 mg daily Eliquis 5 mg BID HISTORY: 84 year old female with history of Parkinsons Disease, anxiety, depression, PE on Eliquis, Osteoporosis, and GERD. Admitted to [facility] 06/17 to 06/20 for atypical chest pain, shortness of breath and urinary tract infection. Presented feeling feverish, and short of breath. She was found to be anemic with a hemoglobin of 9. Baseline Hgb 11-12. She did get an iron infusion 300 mg of Venofer while inpatient and was discharged on folic acid supplement. She was also discharged on ferrous sulfate 325 mg once a day. Ferritin 9 and TSAT 9% prior to iron infusion. Patient feels that she is tolerating the iron supplement reasonably well. Some mild constipation but does not take anything for this. Last Colonoscopy 2015 significant for angiectasias in ascending colon. Follows with GI. History of colitis. Next appointment 09/26/24. Denies any melena or hematochezia. Does have a history of gastroparesis. History of recurrent pulmonary emboli. First was provoked in the setting of COVID 19. Was on Eliquis for one year. Second in 2021 was seemingly unprovoked. Now on lifelong anticoagulation with Eliquis. No renal insufficiency noted. HISTORY OF PRESENT ILLNESS: Sera Gutiérrez is a 84 year old female with a history as outlined above. Currently here for f/u visit today. Patient had a bad reaction to doxycyline. Is not feeling herself but starting to slowly improve. Tolerating the iron tablet well. Past Medical History: Diagnosis Date Benign neoplasm [...] stenosis, unspecified region other than cervical Past Surgical History: Procedure Laterality Date OTHER [...] performed by Ade Pleitez MD at ENDOSCOPY [facility] COLONOSCOPY, DIAGNOSTIC (RECTUM) 04/07/2016 normal/[facility] EGD, FLEXIBLE, DIAGNOSTIC 07/13/2012 ademomatous-repeat EGD in 6 months/UPPER GI ENDOSCOPY DIAGNOSTIC performed by Ade Pleitez MD at ENDOSCOPY [facility] EGD, FLEXIBLE, DIAGNOSTIC 01/05/2013 UPPER GI ENDOSCOPY DIAGNOSTIC performed by Ade Pleitez MD at ENDOSCOPY [facility] EGD, FLEXIBLE, DIAGNOSTIC 08/15/2014 normal/done @ [facility] EGD, FLEXIBLE, DIAGNOSTIC 04/07/2016 normal bx/[facility] EGD, FLEXIBLE, DIAGNOSTIC 07/13/2019 normal bx/ESOPHAGOGASTRODUODENOSCOPY (EGD), FLEXIBLE, TRANSORAL, DIAGNOSTIC performed by Rosa Luciano MD at ENDOSCOPY [facility] EGD, FLEXIBLE, DIAGNOSTIC 11/25/2021 normal / ESOPHAGOGASTRODUODENOSCOPY (EGD), FLEXIBLE, TRANSORAL, DIAGNOSTIC performed by David Nazario MD at ENDOSCOPY [facility] EGD, FLEXIBLE, DIAGNOSTIC 09/14/2023 normal/ESOPHAGOGASTRODUODENOSCOPY (EGD), FLEXIBLE, TRANSORAL, DIAGNOSTIC performed by David Nazario MD at ENDOSCOPY [facility] EGD, FLEXIBLE, W/BIOPSY 11/19.2009 done mild gastritis, z line irregular 36 cms from incisorsmild chronic inflammation REMOVE GALLBLADDER [address] Padilla for bone spurs TOTAL ABD HYSTERECTOMY W/WO REMOVAL OF TUBE(S) 1983 TOTAL HYSTERECTOMY 1984 TOTAL KNEE REPLACEMENT EDU. 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 Tobacco Use Smoking status: Former Current packs/day: 0.00 Average packs/day: 0.5 packs/day for 35.0 years (17.5 ttl pk-yrs) Types: Cigarettes Start date: 03/20/1944 Quit date: 03/20/1979 Years since quittin.7 Passive exposure: Past Smokeless tobacco: Never Tobacco comments: quit in 1978 Vaping Use Vaping status: Never Used Substance and Sexual Activity Alcohol use: No Drug use: No Sexual activity: Yes Partners: Male Other Topics Concern Service No Blood Transfusions No Caffeine Concern Not Asked Occupational Exposure Not Asked Hobby Hazards Not Asked Sleep Concern Not Asked Stress Concern Not Asked Weight Concern Not Asked Special Diet Not Asked Back Care Not Asked Exercise Not Asked Bike Helmet Not Asked Seat Belt Not Asked Self-Exams Not Asked Social History Narrative 1 dog and 6 cats in her home. No mold. Social Needs Financial Resource Strain: Low Risk (11/26/2024) Financial Resource Strain Do you have any trouble paying for your medications, or do you think you might in the future? (Adult - for ages 18 years and over): No Does your family have trouble paying for medicine? (Household - for ages 0-17 years): Not on file Food Insecurity: No Food Insecurity (11/26/2024) Food Insecurity Worried About Running Out of Food in the Last Year: Never true Ran Out of Food in the Last Year: Never true Do you need food for this week? (Adult - for ages 18 years and over): No Transportation Needs: No Transportation Needs (11/26/2024) Transportation Needs Do you have trouble getting a ride to medical visits or work? (Adult - for ages 18 years and over):Not on file Does your family have a hard time getting a ride to doctors’ visits? (Household - for ages 0-17 years): Not on file Has lack of transportation kept you from medical appointments, meetings, work, or from getting things needed for daily living? Check all that apply. (Adult - for ages 18 years and over): No Do you (or your family) have trouble finding or paying for a ride (transportation)? (Household - for ages 0-17 years): Not on file Social Connections: Socially Integrated (11/26/2024) Social Connections How often do you feel lonely or isolated from those around you? (Adult - for ages 18 years and over): Never Housing Stability: Low Risk (11/26/2024) Housing Stability Do you currently live in a halfway or have no steady place to sleep at night? (Adult - for ages 18 years and over): No Do you think you are at risk of becoming homeless? (Adult - for ages 18 years and over): Not on file Does your family worry about paying for your home or becoming homeless? (Household - for ages 0-17 years): Not on file Are you homeless or worried that you might be in the future? (Adult - for ages 18 years and over): No Are you (or your family) homeless or worried that you might be in the future? (Household - for ages0-17 years): Not on file Review of patient's allergies indicates: Allergen Reactions Sulfa Antibiotics Edema airway Tolterodine Edema airway Detrol LA Erythromycin Drowsy Flexeril [Cyclobenzaprine Hcl] Worsened rls, [...] mouth in the morning. 90 Tablet 9 tiZANidine HCl 2 MG Oral Tablet (Zanaflex) 1 TABLET TWICE A DAY 60 Tablet 1 Folic Acid 1 MG Oral Tablet Take [...] taking: Reported on 11/26/2024) 21 Tablet 0 Fluticasone Propionate 50 MCG/ACT Nasal Suspension (Flonase) Administer 2 Sprays into each nostril in the morning. 16 g 5 Albuterol Sulfate HFA 108 (90 Base) MCG/ACT Inhalation Aerosol Solution Inhale 2 Puffs by mouth every 6 hours as needed (cough, chest congestion). 18 g 1 LORazepam 0.5 MG Oral Tablet (Ativan) Take 1 Tablet by mouth 2 times a day as needed for Anxiety orInsomnia. 30 Tablet 0 Omeprazole 40 MG Oral Capsule Delayed Release [...] 1 tablet 3x daily 270 Tablet 1 No current facility-administered medications for this visit. REVIEW OF SYSTEMS: See HPI - otherwise negative OBJECTIVE: Filed Vitals: 12/03/24 1423 BP: 96/68 Pulse: 82 Temp: 36.9 °C (98.4 °F) TempSrc: Tympanic SpO2: 92% Weight: 53.5 kg (118 lb) Wt Readings from Last 5 Encounters: 12/03/24 53.5 kg (118 lb) 11/26/24 53.7 kg (118 lb 6.4 oz) 11/16/24 54.9 kg (121 lb 1.6 oz) 09/26/24 54.8 kg (120 lb 14.4 oz) 08/31/24 54.4 kg (120 lb) PHYSICAL EXAM: General Appearance: No acute distress Lungs/Thorax: Normal - Clear to auscultation Heart: Normal - Regular rate and rhythm, normal S1, S2, no appreciable murmurs Extremities: +1 BLE edema Neurologic: alert and oriented x 4, ambulates with cane LABS: Results for orders placed or performed in visit on 11/26/24 IRON SCREEN, INCLUDING TIBC Result Value Ref Range Iron 66 33 - 151 ug/dL Iron Binding Capacity 251 250 - 425 ug/dL Transferrin Saturation Percent 26 15 - 55 % FERRITIN Result Value Ref Range Ferritin 167 (H) 13 - 150 ng/mL CBC Result Value Ref Range WBC 7.77 4.00 - 10.80 K/uL RBC 3.51 3.85 - 5.15 M/uL HGB 11.9 (L) 12.0 - 15.3 g/dL HCT 37.4 36.0 - 45.2 % MCV 106.6 81.5 - 97.5 fL MCH 33.9 27.0 - 34.0 pg MCHC 31.8 32.0 - 36.0 g/dL RDW 13.7 11.5 - 15.5 % PLT 341 140 - 400 K/uL MPV 9.3 6.6 - 11.1 fL nRBCs 0 <=0 /100 WBCs DIFFERENTIAL, AUTOMATED Result Value Ref Range WBC 7.77 4.00 - 10.80 K/uL Neutrophils % 72.7 40.0 - 75.0 % Lymphocytes % 18.4 18.0 - 42.0 % Monocytes % 5.4 1.0 - 11.0 % Eosinophils % 1.7 0.0 - 6.0 % Basophils % 0.5 0.0 - 2.0 % Immature Granulocytes % 1.3 0.0 - 2.0 % Absolute Neutrophils 5.65 1.80 - 7.70 K/uL Absolute Lymphocytes 1.43 1.00 - 4.80 K/ul Absolute Monocytes 0.42 0.00 - 1.10 K/uL Absolute Eosinophils 0.13 0.00 - 0.70 K/uL Absolute Basophils 0.04 0.00 - 0.20 K/uL Absolute Immature Granulocytes 0.10 0.00 - 0.20 K/uL *Note: Due to a large number of results and/or encounters for the requested time period, some results have not been displayed. A complete set of results can be found in Results Review. IMPRESSION/PLAN: Iron deficiency anemia History of recurrent pulmonary emboli Last Colonoscopy 2015 significant for angiectasias in ascending colon. Follows with GI. Continues on ferrous sulfate 325 mg daily. Tolerating well. Will continue Lab results 11/26/24 reviewed: Hgb stable at 11.9 Iron studies improved with ferritin 167 and TSAT 26% Agree with recommendations for lifelong anticoagulation. Could consider decreasing to prophylactic dosing. RTC in six months with provider with cbc/diff, iron screen and ferritin MINESH Castellon documented in this encounter Nursing Notes * Jaimie Buchanan MED ASSIST - 12/03/2024 2:30 PM EST Patient identifed by name and birthdate Do you have any concerns about pain management for today's visit? Yes. Patient instructed to discuss pain concerns with provider during the visit today Living Will or Advance Directive for Health Care as noted on the problem list. [facility] is a way you can talk to your provider on line through e-mail. Would you like to sign up? I can activate it for you? ALREADY ACTIVE Filed Vitals: 12/03/24 1423 BP: 96/68 Pulse: 82 Temp: 36.9 °C (98.4 °F) TempSrc: Tympanic SpO2: 92% Weight: 53.5 kg (118 lb) Patient was instructed to not get up on the exam table/exam chair until directed and assisted by their provider; patient is to remain seated in the chair/ wheelchair/ exam table/ exam chair for fall prevention and safety reasons. Patient is aware to have assistance to step down off exam table/exam chair with personnel. Patient voiced full comprehension of instructions. documented in this encounter Plan of Treatment Upcoming Encounters Date Type Department Care Team (Late st Contact Info) Description 12/31/2024 11:50 AM EDT [facility] [address] [place] [phone] Vika Castellanos DO [address] [place] [phone] 03/25/2025 10:30 AM EDT Imaging Radiology [facility] [place] [phone] 04/02/2025 10:30 AM EDT Office Visit Gastroenterology, [facility] [address] [facility] [place] [address] Lacy Tompkins CRNP 132 [facility] [place] [address] 04/16/2025 1:00 PM EDT Office Visit Neurology [facility] [address] [place] [address] [place], [address] [place] [address] 05/27/2025 11:00 AM EDT [facility] [address] [facility] [place] [phone] [facility] [address] [place] [address] 06/03/2025 2:30 PM EDT Office Visit Hematology/Oncology [facility] [address] [place] [phone] Betsy Tompkins CRNP [address] [place] [address] Health Maintenance Due Date Last Done Comments [...] D LEVEL ONCE IN A LIFETIME-USE SMARTSET# [id number] Completed 07/20/2024, 07/07/2023, 03/25/2022, Additional history exists [...] as of this encounter Visit Diagnoses Diagnosis Iron deficiency anemia due to chronic blood loss- Primary Iron deficiency anemia secondary to blood loss (chronic) 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) Other pulmonary embolism and infarction documented in this encounter Care Teams Custom Miller Relationship Specialty Start Date End Date Vika Castellanos DO [address] [place] [phone] PCP - General Family Medicine 05/22/12 documented as of this encounter
--- OUTSIDE RECORDS SUMMARY | 2025-02-03 18:37 | External Medical Summary | Summary of Care ---
Author Name Unknown Organization [facility] Address [address] [facility] [place] [address] Phone [phone] Care Team Providers Care Drone Operator Name Role Phone Art Castellanos DO Primary Care Provider [phone] Reason for Visit * Reason Comments eRx-Medication Refill Encounter Details Date Type Department Care Team (Late st Contact Info) Description 11/25/2024 Refill [facility] [place] [address]os [address] [place] [phone] Art Castellanos DO [address] [place] [address] 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); snf current use of anticoagulant therapy Allergies Active Allergy Reactions Criticality Noted Date [...] mouth daily as needed for Sleep. 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 180 Tablet 1 11/26/19 25 Active Lisinopril 2.5 MG Oral Tablet (Prinivil) TAKE 1 TABLET BY MOUTH EVERY DAY IN THE MORNING 90 Tablet 1 11/26/19 25 Active Apixaban 5 MG Oral Tablet (Eliquis)Indicat ions: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),snf current use of anticoagulant therapy TAKE 1 TABLET BY MOUTH AT 8AM AND THEN TAKE 1 TABLET AT 8PM. 180 Tablet 1 06/27/20 24 2024 Discontinued Lisinopril 2.5 MG Oral Tablet (Prinivil) TAKE 1 TABLET BY MOUTH EVERY DAY IN THE MORNING 90 Tablet 1 06/27/20 24 2024 Discontinued Doxycycline Hyclate 100 MG Oral Capsule Take 1 Capsule by mouth in the morning and 1 Capsule before bedtime. Do all this for 10 days. Until gone.. 20 Capsule 11/16/19 25 2024 Additional Information Patient not taking.Reported on 11/26/2024 documented as of this encounter (statuses as [...] Miscellaneous Notes * Telephone Encounter - Art Ramsay [facility] - 11/26/2024 3:36 PM ESTSigned Prescriptions: Disp Refills Apixaban 5 MG Oral Tablet (Eliquis) 180 Ta*1 Sig: TAKE 1 TABLET BY MOUTH AT 8AM AND THEN TAKE 1 TABLET AT 8PM.Authorizing Provider: RAT CASTELLANOS User: ART RAMSAY Lisinopril 2.5 MG Oral Tablet (Prinivil) 90 Tab*1 Sig: TAKE 1 TABLET BY MOUTH EVERY DAY IN THE MORNINGAuthorizing Provider: ART CASTELLANOS User: ART RAMSAY documented in this encounter Plan of Treatment Upcoming Encounters Date Type Department Care Team (Late st Contact Info) Description 12/03/2024 2:30 PM EST Office Visit Hematology/Oncology [facility] [place] [address] [place] [phone] Betsy Tompkins CRNP [address] [place] [address] 12/31/2024 11:50 AM EDT Office Visit [facility] [address] Burgos [address] [place] [phone] Art Castellanos, DO [address] [place] [address] 03/25/2025 10:30 AM EDT Imaging Radiology [facility] [address] [place] [phone] 04/02/2025 10:30 AM EDT Office Visit Gastroenterology, [facility] [address] [place] [address] Lacy Tompkins CRNP [address] [place] [address] 04/16/2025 1:00 PM EDT Office Visit Neurology [facility] [address] [place] [address] [place], DO [address] [place] [address] Health Maintenance Due Date Last Done Comments [...] D LEVEL ONCE IN A LIFETIME-USE SMARTSET# [id number] Completed 07/20/2024, 07/07/2023, 03/25/2022, Additional history exists [...] as of this encounter Visit Diagnoses Diagnosis 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) Other pulmonary embolism and infarction snf current use of anticoagulant therapy documented in this encounter Care Teams Drone Operator Relationship Specialty Start Date End Date Art Castellanos DO [address] [place] [phone] PCP - General Family Medicine 05/22/12 documented as of this encounter
--- OUTSIDE RECORDS SUMMARY | 2025-02-03 18:37 | External Medical Summary | Summary of Care ---
Author Name Unknown Organization [facility] Address [address] [place] [address] Phone [phone] Care Team Providers Care Director Trust Name Role Phone Vika Castellanos DO Primary Care Provider [phone] Reason for Referral * Evaluate & Treat - Unlimited Visits (Within 10 days (routine)) - Authorized Specialty Diagnoses / Procedures Referred By Contac t Referred To Contact Pain Management / Pain Medicine Diagnoses Parkinson's disease with dyskinesia, unspecified whether manifestations fluctuate (HCC) Neck pain on right side Vika Castellanos DO [address] [facility] [place] [address] Phone: tel: fax: Referral ID Status Reason Start Date Expiration Date Visits Requested Visits Authorized [id number] Authorized Specialty Services Required 12/31/2024 999 999 [...] pain if not done previously. Fax No. [facility] [phone] or contact front desk specialist [phone] Fax No. [facility] [phone] or contact front desk specialist [phone] Fax No. [facility] [phone] or contact front desk specialist [phone] Encounter Details Date Type Department Care Team (Late st Contact Info) Description 12/31/[address] 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 01/11/2024 Senile osteoporosis 07/07/2023 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 0 06/30/2022 [...] as of this encounter (statuses as of 12/31/2024) Resolved Problems Problem Noted Date Diagnosed Date [...] as of this encounter (statuses as of 12/31/2024) Immunizations Name Administration Dates Next Due COVID-19 [...] Description 03/25/2025 10:30 AM EDT Imaging Radiology [facility] [address] [phone] 04/02/2025 10:30 AM EDT Office Visit Gastroenterology, [facility] [address] [address] Lacy Tompkins CRNP [address] [place] [place] [address] 04/16/2025 1:00 PM EDT Office Visit Neurology [facility] [address] [place] [address] [address] Hung Ennis DO [address] [facility] [place] [address] 05/27/2025 11:00 AM EDT Laboratory Laboratory, [address] [place] [phone] [place], Laboratory [address] [place] [address] 06/03/2025 2:30 PM EDT Office Visit Hematology/Oncology [facility] [place] [address] [facility] [place] [phone] Betsy Tompkins CRNP [address] [place] [address] [place] [address] 07/08/2025 11:50 AM EDT Office Visit Family Practice, [address] [place] [phone] Vika Castellanos DO [address] [place] [address] Scheduled Referrals Name Type Priority Associated Diagnoses [...] D LEVEL ONCE IN A LIFETIME-USE SMARTSET# [id number] Completed 07/20/2024, 07/07/2023, 03/25/2022, Additional history exists [...] Cervicalgia documented in this encounter Care Teams Director Trust Relationship Specialty Start Date End Date Vika Castellanos DO [address] [address] PCP - General Family Medicine 05/22/12 documented as of this encounter
--- OUTSIDE RECORDS SUMMARY | 2025-02-03 18:37 | External Medical Summary | Summary of Care ---
Author Name Unknown Organization [facility] Address [address] [place] [address] Phone [phone] Care Team Providers Care Licensed Guide Name Role Phone German Warner DO Primary Care Provider [phone] Reason for Referral * Evaluate & Treat - Unlimited Visits (Within 10 days (routine)) - Authorized Specialty Diagnoses / Procedures Referred By Geo geller Referred To Contact Podiatry Diagnoses Parkinson's disease with dyskinesia and fluctuating manifestations (HCC) Encounter for nail care German Warner DO [address] [address] Phone: tel: fax: Referral ID Status Reason Start Date Expiration Date Visits Requested Visits Authorized [id number] Authorized Specialty Services Required 12/31/2024 999 999 Question Answer Referral Priority Within 10 days (routine) [facility] this [facility] be scheduled? [facility] Which condition are you referring this patient for? Nail trimming Medicare Patient? Yes Can Patient perform routine footcare without assistance? Yes - Patient may be financially responsible Does patient have a chronic condition? Yes Has patient been seen in the past 6 months? Yes Date last seen for chronic condition: 12/31/2024 Who saw patient for chronic condition? german warner Reason for Visit * Reason Comments Return Visit Return, no new glory rns. Encounter Details Date Type Department Care Team (Late st Contact Info) Description 12/31/2024 11:50 AM EDT [facility] [address] [place] [phone] German Warner, DO [address] [facility] [address] [place] [address] Parkinson's disease with dyskinesia and fluctuating manifestations (HCC)*; Moderate episode of recurrent major depressive disorder (HCC); Acquired hypothyroidism; Hypopotassemia; Encounter for nail care Allergies Active Allergy Reactions Criticality Noted Date [...] by mouth in the morning. 90 Tablet 07/11/20 24 Active Folic Acid 1 MG Oral Tablet Take 1 Tablet by mouth in the morning. 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 180 Tablet 11/26/19 25 Active Lisinopril 2.5 MG Oral Tablet (Prinivil) TAKE 1 TABLET BY MOUTH EVERY DAY IN THE MORNING 90 Tablet 11/26/19 25 Active Ondansetron HCl 4 MG [...] 3x daily 270 Tablet 11/27/19 25 Active tiZANidine HCl 2 MG [...] Anxiety or Insomnia. 30 Tablet 12/14/19 25 Active Doxycycline Hyclate 100 MG Oral Capsule Take 1 Capsule by mouth in the morning and 1 Capsule before bedtime. Do all this for 10 days. Until gone.. 20 Capsule 11/16/19 25 025 Discontin ued(Disch arged) documented as of this encounter (statuses as of 12/31/2024) Active Problems Problem Noted Date Diagnosed Date Long-term current use of benzodiazepine 05/28/20 24 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 01/11/2024 Senile osteoporosis 07/07/2023 long-term current use of anticoagulant therapy 0 06/30/2022 [...] Sign Reading Time Taken Comments Blood Pressure 126/67 12/31/2024 12:03 PM EDT Pulse 75 12/31/2024 12:03 PM EDT Temperature 36.5 °C (97.7 °F) 12/31/2024 12:03 PM E DT Respiratory Rate - - Oxygen Saturation - - Inhaled Oxygen Concentration - - Weight 53.2 kg (117 lb 4.8 oz) 12/31/2024 12:03 PM EDT Height - - Body Mass Index 25.38 08/31/2024 12:51 PM EST documented in this encounter Progress Notes * German Warner, - 12/31/2024 12:07 PM EDT Subjective: Sera Gutiérrez is a 84 year old female. Chief Complaint Patient presents with Return Visit Return, no new concerns. HPI: 84 year old female with hx of Parkinson's Disease, Anxiet, hx of PE on Eliquis, Osteoporosis, GERD, on meds. Presents with neighbor, she drove her here. Ongoing neck tightness and muscle pain, more in the L side of her neck will message neurology aboutdoing botox injections. Walking with walker at home, and when out a cane. Feels tired. Only taking Sinement one a day. And I encouraged her to take them as prescribed. 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 Review of patient's allergies indicates: Allergen Reactions Sulfa Antibiotics Edema airway Tolterodine Edema airway Detrol LA Erythromycin Drowsy Flexeril [Cyclobenzaprine Hcl] Worsened rls, made her heart pound Pepcid [Famotidine] Other (Please comment) GI upset, nausea Nitroglycerin Other reaction(s): Headache Objective: Temp 97.7 °F (36.5 °C) (Tympanic) | Wt 117 lb 4.8 oz (53.2 kg) | BMI 25.38 kg/m² | BSA 1.46 m² Physical Exam: General: alert, frail in appearance Shuffling gait, Neck severe torticollis Heart: regular rate & rhythm, no murmur, and no gallops Lungs: chest symmetric with normal AP diameter, no chest deformities noted, no chest wall tenderness, lungs clear to auscultation Abdomen: abdomen soft, non-tender, normal bowel sounds, and no masses or organomegaly Extremities: no edema. ASSESSMENT/PLAN: Parkinson's disease with dyskinesia and fluctuating manifestations (HCC) (Primary) - PODIATRY REFERRAL OP Moderate episode of recurrent major depressive disorder (HCC) Acquired hypothyroidism Hypopotassemia - BASIC METABOLIC PANEL; Future; Expected date: 12/31/2024 Encounter for nail care - PODIATRY REFERRAL OP Follow Up: Return in about 6 months (around 07/03/2025) for Labs Today. | For: Labs Today German Warner DO documented in this encounter Nursing Notes * Ruben Easton CMA - 12/31/2024 12:02 PM EDT The patient has been properly identified by confirmation of name and date of . Chief Complaint Patient presents with Return Visit Return, no new concerns. documented in this encounter Plan of Treatment Upcoming Encounters Date Type Department Care Team (Late st Contact Info) Description 03/25/2025 10:30 AM EDT Imaging Radiology [facility] [address] [place] [phone] 04/02/2025 10:30 AM EDT Office Visit Gastroenterology, [facility] [address] [place] [address] Lacy Tompkins CRNP [address] [place] [address] 04/16/2025 1:00 PM EDT Office Visit Neurology [facility] 200 [facility] [place] [address] Hung Ennis, DO 200 [facility] [place] [address] 05/27/2025 11:00 AM EDT Laboratory Laboratory, [address] [facility] [place] [phone] [place] [facility] 226 [facility] [place]am [place] [address] 06/03/2025 2:30 PM EDT Office Visit Hematology/Oncology [facility] [address] [place] [phone] Betsy Tompkins CRNP [address] [place] [address] 07/08/2025 11:50 AM EDT Office Visit Family [facility], [address] [facility] [place] [phone] German Warner, DO 226 [facility] [place] [address] Pending Results Name Type Priority Associated Diagnoses Date /Time BASIC METABOLIC PANEL Lab Routine Hypopotassemia 12/31/2024 12:51 PM EDT Scheduled Orders Name Type Priority Associated Diagnoses Orde r Schedule BASIC METABOLIC PANEL Lab Routine Hypopotassemia Expected: 12/31/2024 (Approximate), Expires: 12/31/2025 Scheduled Referrals Name Type Priority Associated Diagnoses Orde r Schedule PODIATRY REFERRAL OP Referral Within 10 days (routine) Parkinson's disease with dyskinesia and fluctuating manifestations (HCC) Encounter for nail care Ordered: 12/31/2024 Health Maintenance Due Date Last [...] D LEVEL ONCE IN A LIFETIME-USE SMARTSET# [id number] Completed 07/20/2024, 07/07/2023, 03/25/2022, Additional history exists [...] encounter Visit Diagnoses Diagnosis Parkinson's disease with dyskinesia and fluctuating manifestations (HCC)- Primary Moderate episode of recurrent major depressive disorder (HCC) Acquired hypothyroidism Unspecified hypothyroidism Hypopotassemia Encounter for nail care documented in this encounter Care Teams Licensed Guide Relationship Specialty Start Date End Date German Warner DO [address] [address] PCP - General Family Medicine 05/22/12 documented as of this encounter"
--- OUTSIDE RECORDS SUMMARY | 2025-02-03 18:37 | External Medical Summary | Summary of Care ---
Author Name Unknown Organization [facility] Address [address] [place] [address] Phone [phone] Care Team Providers Care Young Adult Librarian Name Role Phone Vika Castellanos DO Primary Care Provider [phone] Reason for Visit * Reason Comments Outpatient Testing Encounter Details Date Type Department Care Team (Late st Contact Info) Description 12/31/2024 12:50 PM EDT [facility] [address] [facility] [place] [phone] [place], Laboratory [address] [facility] [place] [address] Hypopotassemia Allergies Active Allergy Reactions Criticality Noted Date [...] MG Oral Tablet (Eliquis)Indicati ons: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),keno terminal operator current use of anticoagulant therapy TAKE [...] without fluctuating manifestations 01/11/2024 Senile osteoporosis 07/07/2023 keno terminal operator current use of anticoagulant therapy 0 06/30/2022 [...] on file documented as of this encounter Plan of Treatment Upcoming Encounters Date Type Department Care Team (Late st Contact Info) Description 03/25/2025 10:30 AM EDT Imaging Radiology [facility] [address] [place] [phone] 04/02/2025 10:30 AM EDT Office Visit Gastroenterology, [facility] [address] [place] [address] Lacy Tompkins CRNP 132 [facility] [place] [address] 04/16/2025 1:00 PM EDT Office Visit Neurology [facility] [address] [facility] [place] [address] Hung Ennis DO [address] [facility] [place] [address] 05/27/2025 11:00 AM EDT Laboratory Laboratory, [address] 226 [facility] [place] [phone] [facility] [place] [address] 06/03/2025 2:30 PM EDT Office Visit Hematology/Oncology [facility] [address] [facility] [place] [phone] Betsy Tompkins CRNP [address] [place] [phone] 07/08/2025 11:50 AM EDT Office Visit Family Practice, [address] [facility] [place] [phone] Vika Castellanos DO [address] [place] [address] Pending Results Name Type Priority Associated Diagnoses Date /Time BASIC METABOLIC PANEL Lab Routine Hypopotassemia 12/31/2024 12:51 PM EDT Health Maintenance Due Date Last Done Comments [...] D LEVEL ONCE IN A LIFETIME-USE SMARTSET# [id number] Completed 07/20/2024, 07/07/2023, 03/25/2022, Additional history exists [...] as of this encounter Visit Diagnoses Diagnosis Hypopotassemia documented in this encounter Care Teams Young Adult Librarian Relationship Specialty Start Date End Date Vika Castellanos DO [address] [address] PCP - General Family Medicine 05/22/12 documented as of this encounter
--- OUTSIDE RECORDS SUMMARY | 2025-02-03 18:37 | External Medical Summary ---
Author Name Unknown Address Unknown Organization K01:[facility] - [address] [address] [facility] [place] [address] Laboratory Report Ordering Provider Test Date Status DAVE CORDOVA 12/31/2024 12:51:58 Final Observation Date Value Abnormality Reference (Units ) Status BUN 12/31/2024 12:51:58 17 6-20 (mg/dL) Final Creatinine 12/31/2024 12:51:58 0.9 0.5-1.0 (mg/dL) Final Glomerular filtration rate/1.73 sq M.predicted [Volume Rate/Area] in Serum, Plasma or Blood by Creatinine-based formula (CKD-EPI) 12/31/2024 12:51:58 63 >=60 (mL/min) Final eGFR is calculated based on the CKD-EPI 2020 equation. Sodium 12/31/2024 12:51:58 143 135-146 (m mol/L) Final Potassium 12/31/2024 12:51:58 5.0 3.5-5.1 (m mol/L) Final Cl 12/31/2024 12:51:58 109 Above high normal 98 -107 (mmol/L) Final CO2 12/31/2024 12:51:58 18 Below low normal 22- 32 (mmol/L) Final Anion gap 12/31/2024 12:51:58 16 Above high normal 7- 15 (mmol/L) Final Glucose 12/31/2024 12:51:58 90 70-120 (mg /dL) Final Calcium 12/31/2024 12:51:58 9.3 8.4-10.2 ( mg/dL) Final Performing Location [facility] [place] - [address] [place] [address]
--- OUTSIDE RECORDS SUMMARY | 2025-02-03 18:37 | External Medical Summary | Summary of Care ---
Author Name Unknown Organization [facility] Address [address] [facility] [place] [address] Phone [phone] Care Team Providers Care Restaurant Floor Manager Name Role Phone Art Castellanos DO Primary Care Provider [phone] Reason for Visit * Reason Onset Date Comments Medication Refill 12/13/2024 Encounter Details Date Type Department Care Team (Late st Contact Info) Description 12/13/2024 [facility] [address] [place] [phone] Art Castellanos DO [...] as of this encounter (statuses as of 12/14/2024) Medications acetaminophen (TYLENOL) 325 MG Tablet Take [...] MG Oral Tablet (Eliquis)Indicati ons: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),detention current use of anticoagulant therapy TAKE 1 [...] or Insomnia. 30 Tablet 12/14/19 25 Active LORazepam 0.5 MG Oral Tablet (Ativan)Indicatio ns:Anxiety state Take 1 Tablet by mouth 2 times a day as needed for Anxiety or Insomnia. 30 Tablet 11/21/19 25 025 Discontin ued(Refil l) documented as of this encounter (statuses as of 12/14/2024) Active Problems Problem Noted Date Diagnosed Date Long-term current use of benzodiazepine 05/28/20 24 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 01/11/2024 Senile osteoporosis 07/07/2023 detention current use of anticoagulant therapy 0 06/30/2022 [...] as of this encounter (statuses as of 12/14/2024) Resolved Problems Problem Noted Date Diagnosed Date [...] as of this encounter (statuses as of 12/14/2024) Immunizations Name Administration Dates Next Due COVID-19 [...] encounter Miscellaneous Notes * Telephone Encounter - Clara Adan [facility] - 12/14/2024 2:26 PM EST Signed Prescriptions: Disp Refills LORazepam 0.5 MG Oral Tablet (Ativan) 30 Tab*0 Sig: Take 1 Tablet by mouth 2 times a day as needed for Anxiety or Insomnia.Authorizing Provider: ART CASTELLANOS--- * Telephone Encounter - Art Castellanos DO - 12/14/2024 1:12 PM ESTSigned Prescriptions: Disp Refills LORazepam 0.5 MG Oral Tablet (Ativan) 30 Tab*0 Sig: Take 1 Tablet by mouth 2 times a day as needed for Anxiety or Insomnia. Authorizing Provider: ART CASTELLANOS * Telephone Encounter - Scott Pendleton [facility] - 12/14/2024 9:02 AM ESTPending Prescriptions: Disp Refills LORazepam 0.5 MG Oral Tablet (Ativan) 30 Tab*0 Sig: Take 1 Tablet by mouth 2 times a day as needed for Anxiety or Insomnia. * Telephone Encounter - Scott Pendleton [facility] - 12/14/2024 9:02 AM EST I have reviewed the patient’s controlled substance dispensing history in the Prescription Drug Monitoring Program in compliance with the [facility] regulations before prescribing a controlled substance. PDMP checked on 12/14/2024. Pending Prescriptions: Disp Refills LORazepam 0.5 MG Oral Tablet (Ativan) 30 Tab*0 Sig: Take 1 Tablet by mouth 2 times a day as needed for Anxiety or Insomnia. Last Visit: 11/26/2024 (in office), Visit date not found (telemedicine) Next Visit: 12/31/2024 Date medication was last filled: 11/21/2024 Date medication is due for refill: 12/05/2024 [facility]acy: [id number] [address] [facility] Is this request for a controlled substance? Yes and Urine Drug Screen Not completed Toxicology results: No results found. However, due to the size of the patient record, not all encounters were searched.Please check Results Review for a complete set of results. Please approve if appropriate. Thanks, Scott Pendleton Pharm.D. Clinical Pharmacist [facility] [phone] 12/14/2024, 9:02 AM * Telephone Encounter - Sheree Singh CPhT - 12/14/2024 8:49 AM EST Patient calling to check on status of refill request asking if med can be ordered today Thank you, Sheree Singh Bicycle Repairman II [facility] ([facility] (formerly Telepharmacy) 12/14/2024 8:49 AM * Telephone Encounter - Dalia Jones CPhT - 12/13/2024 11:17 AM EST Did you pend patient's preferred pharmacy and medication before forwarding?yes Pharmacy: [id number] [address] [facility] Pending Prescriptions: Disp Refills LORazepam 0.5 MG Oral Tablet (Ativan) 30 Tab*0 Sig: Take 1 Tablet by mouth 2 times a day as needed for Anxiety or Insomnia. Last Visit: 11/26/2024 (in office), Visit date not found (telemedicine) Next Visit: 12/31/2024 If no future appointments scheduled, and last appointment is greater than a year ago, please schedule patient for a follow-up appointment Last date the medication was ordered: 11/21/24 Is this request for a controlled substance?Yes, What was the last refill date 11/21/24 w/ quantity 30 and dosage 0.5 mg and Urine Drug Screen was completed Urine Drug Screen:No results found. However, [...] Description 12/31/2024 11:50 AM EDT Office Visit Family [facility], [address] [place] [phone] Art Castellanos, DO [address] [place] [address] 03/25/2025 10:30 AM EDT Imaging Radiology [facility] 132 [facility] [place] [phone] 04/02/2025 10:30 AM EDT Office Visit Gastroenterology, [facility] 132 [facility] [place] [address] Lacy Tompkins CRNP 132 [facility] [place] [address] 04/16/2025 1:00 PM EDT Office Visit Neurology [facility] 200 [facility] [place] [address] Hung Ennis DO 200 [facility] [place] [address] 05/27/2025 11:00 AM EDT Laboratory Laboratory, [address] [place] [phone] [facility] [address] [place] [address] 06/03/2025 2:30 PM EDT Office Visit Hematology/Oncology [facility] [address] [place] [phone] Betsy Tompkins CRNP [address] [place] [address] [place] [address] Health Maintenance Due Date Last Done Comments [...] D LEVEL ONCE IN A LIFETIME-USE SMARTSET# [id number] Completed 07/20/2024, 07/07/2023, 03/25/2022, Additional history exists [...] unspecified documented in this encounter Care Teams Restaurant Floor Manager Relationship Specialty Start Date End Date Art Castellanos DO [address] [place] [address] PCP - General Family Medicine 05/22/12 documented as of this encounter
--- OUTSIDE RECORDS SUMMARY | 2025-02-03 18:38 | External Medical Summary | Summary of Care ---
Author Name Unknown Organization [facility] Address [address] [address] Phone [phone] Care Team Providers Care Emergency Veterinary Technician Name Role Phone Art Castellanos DO Primary Care Provider [phone] Reason for Visit * Reason Onset Date Comments Medication Refill 11/19/2024 Encounter Details Date Type Department Care Team (Late st Contact Info) Description [facility] [address] [phone] Art Castellanos DO [...] as of this encounter (statuses as of 11/21/2024) Medications acetaminophen (TYLENOL) 325 MG Tablet Take 1 Tablet by mouth. 04/19/20 16 Active Tylenol PM Extra Strength 500-25 MG Oral Tablet (diphenhydrAMINE- APAP (sleep)) Take 1 Tablet by mouth daily as needed for Sleep. Active Carbidopa-Levodop a 25-100 MG Oral Tablet [...] DAY 90 Tablet 3 04/12/20 24 Active Gabapentin 300 MG Oral Capsule (Neurontin)Indica tions:New onset of headaches after age 50 TAKE 1 CAPSULE BY MOUTH TWICE DAILY 180 Capsule 1 04/12/20 24 Active Escitalopram Oxalate 20 MG [...] Tablet by mouth in the morning. Active Ondansetron HCl 4 MG Oral Tablet (Zofran)Indicatio ns:Nausea TAKE 1 TABLET BY MOUTH EVERY DAY IN THE MORNING AND AT BEDTIME 60 Tablet 3 06/19/20 24 Active Saccharomyces boulardii 250 MG Oral Capsule (Florastor) Take 1 Capsule by mouth daily. Active Apixaban 5 MG Oral Tablet (Eliquis)Indicati ons: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),[facility] current use of anticoagulant therapy TAKE 1 TABLET BY MOUTH AT 8AM AND THEN TAKE 1 TABLET AT 8PM. 180 Tablet 1 06/27/20 24 Active rOPINIRole HCl 1 MG Oral Tablet (Requip) TAKE 1 TABLET BY MOUTH EVERYDAY AT BEDTIME 90 Tablet 3 06/27/20 24 Active Omeprazole 40 MG Oral Capsule Delayed Release (PriLOSEC)Indicat ions:Gastroesopha geal reflux disease without esophagitis TAKE 1 CAPSULE BY MOUTH EVERY DAY IN THE MORNING 90 Capsule 1 06/27/20 24 Active Lisinopril 2.5 MG Oral Tablet (Prinivil) TAKE 1 TABLET BY MOUTH EVERY DAY IN THE MORNING 90 Tablet 1 06/27/20 24 Active Ferrous Sulfate 325 (65 Fe) MG Oral Tablet Delayed Release Take 1 Tablet by mouth in the morning. 90 Tablet 9 07/11/20 24 Active Atropine Sulfate 1 % Ophthalmic SolutionIndicatio ns:Sialorrhea 1-2 drop under you tongue every 8 hours as needed for drooling 2 mL 12 08/31/20 24 Active tiZANidine HCl 2 MG Oral [...] package directions 21 Tablet 11/16/19 25 Active Doxycycline Hyclate 100 MG Oral Capsule Take 1 Capsule by mouth in the morning and 1 Capsule before bedtime. Do all this for 10 days. Until gone.. 20 Capsule 11/16/19 25 025 Active Fluticasone Propionate 50 MCG/ACT Nasal Suspension [...] or Insomnia. 30 Tablet 11/21/19 25 Active LORazepam 0.5 MG Oral Tablet (Ativan)Indicatio ns:Anxiety state Take 1 Tablet by mouth 2 times a day as needed for Anxiety or Insomnia. 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 Never true 05/24/2022 Comments No Sex and Gender Information Value [...] Telephone Encounter - Art Castellanos DO - 11/21/2024 10:53 AM ESTSigned Prescriptions: Disp Refills LORazepam 0.5 MG Oral Tablet (Ativan) 30 Tab*0 Sig: Take 1 Tablet by mouth 2 times a day as needed for Anxiety or Insomnia.Authorizing Provider: ART CASTELLANOS-- * Telephone Encounter - Art Castellanos DO - 11/21/2024 10:52 AM ESTSigned Prescriptions: Disp Refills LORazepam 0.5 MG Oral Tablet (Ativan) 30 Tab*0 Sig: Take 1 Tablet by mouth 2 times a day as needed for Anxiety or Insomnia. Authorizing Provider: ART CASTELLANOS * Telephone Encounter - Angeles Pickard CPhT - 11/21/2024 8:22 AM EST Patient only has 1 pill left asking this be sent high priority Thank you, Angeles Pickard [facility] Professor Of Kinesiology [facility] 11/21/2024, 8:22 AM * Telephone Encounter - Keara Gannon [facility] - 11/20/2024 11:37 AM ESTPending Prescriptions: Disp Refills LORazepam 0.5 MG Oral Tablet (Ativan) 30 Tab*0 Sig: Take 1 Tablet by mouth 2 times a day as needed for Anxiety or Insomnia. * Telephone Encounter - Keara Gannon [facility] - 11/20/2024 11:36 AM EST I have reviewed the patient’s controlled substance dispensing history in the Prescription Drug Monitoring Program in compliance with the [facility] regulations before prescribing a controlled substance. PDMP checked on 11/20/2024. Pending Prescriptions: Disp Refills LORazepam 0.5 MG Oral Tablet (Ativan) 30 Tab*0 Sig: Take 1 Tablet by mouth 2 times a day as needed for Anxiety or Insomnia. Last Visit: 11/16/2024 (in office), Visit date not found (telemedicine) Next Visit: 11/26/2024 Date medication was last filled: 10/26 Date medication is due for refill: 11/09 Pharmacy: [id number] Is this request for a controlled substance? Yes and Urine Drug Screen Not completed Toxicology results: No results found. However, due to the size of the patient record, not all encounters were searched.Please check Results Review for a complete set of results. Please approve if appropriate. Thanks, Keara Gannon, PharmD Clinical Pharmacist [facility] ([facility] [phone] 11/20/2024 11:36 AM * Telephone Encounter - Cesia Lin CPhT - 11/19/2024 10:56 AM EST Did you pend patient's preferred pharmacy and medication before forwarding?yes [id number] [address] [place] [address] Pending Prescriptions: Disp Refills LORazepam 0.5 MG Oral Tablet (Ativan) 30 Tab*0 Sig: Take 1 Tablet by mouth 2 times a day as needed for Anxiety or Insomnia. Last Visit: 11/16/2024 (in office), Visit date not found (telemedicine) Next Visit: 11/26/2024 If no future appointments scheduled, and last appointment is greater than a year ago, please schedule patient for a follow-up appointment Last date the medication was ordered: 10/26/24 Is this request for a controlled substance?Yes, What was the last refill date 10/26/24 w/ quantity 30 and dosage 0.5 and Urine Drug Screen Not completed Urine [...] Care Team (Late st Contact Info) Description 11/26/2024 10:00 AM EST Laboratory Laboratory, [facility] [address] [phone] [place] [address] 11/26/2024 12:20 PM EST Office Visit [facility] [address] [phone] Semaj Jimenez MD [address] [phone] 12/03/2024 2:30 PM EST Office Visit Hematology/Oncology [facility] [place] [address] [place] [phone] Betsy Tompkins CRNP [address] [place] [address] 12/31/2024 11:50 AM EDT Office Visit Family [facility], [facility] [address] [facility] [place] [phone] Art Castellanos, DO [address] [facility] [place] [address] 03/25/2025 10:30 AM EDT Imaging Radiology [facility] [address] [place] [phone] 04/02/2025 10:30 AM EDT Office Visit Gastroenterology, [facility] [address] [place] [address] Lacy Tompkins CR[facility] [place] [address] 04/16/2025 1:00 PM EDT Office Visit Neurology [facility] [address] [place] [address] [address] [place], [address] [facility] [place] [address] Health Maintenance Due Date Last Done Comments Zoster Vaccines (2 of 3) 09/13/2013 07/19/2013 Adult Wellness Visit 10/30/2016 10/30/2015 Depression Monitoring 05/24/2023 05/24/2022 COVID-19 Vaccine ( season) 2024 03/18/2021, 02/18/2021 TSH 02/19/2025 02/20/2024, 1201/2023, 07/07/2023, Additional history exists DXA Scan 03/22/2025 03/22/2023, 03/17, 02/08/2012, Additional history exists DTap/Tdap Vaccines (2 - Td or Tdap) 11/05/2031 11/05/2021, 07/22/2008 Pneumococcal Vaccine: 50+ Years Completed 10/30/2015, 06/14/2007 Influenza Vaccine (FLU shot) Completed 03/2024, 07/07/2023, 06/30/2022, Additional history exists VITAMIN D LEVEL ONCE IN A LIFETIME-USE SMARTSET# [id number] Completed 07/20/2024, 07/07/2023, 03/25/2022, Additional history exists [...] unspecified documented in this encounter Care Teams Emergency Veterinary Technician Relationship Specialty Start Date End Date Art Castellanos DO PCP - General Family Medicine 05/22/12 documented as of this encounter
--- OUTSIDE RECORDS SUMMARY | 2025-02-03 18:38 | External Medical Summary | Summary of Care ---
Author Name Unknown Organization [facility] Address [address] [place] [address] Phone [phone] Care Team Providers Care It Trainee Name Role Phone Vika Castellanos DO Primary Care Provider [phone] Reason for Visit * Reason Comments Follow Up Pt is here today for a 10 day follow up visit. Pt is having some trembling. Encounter Details Date Type Department Care Team (Late st Contact Info) Description 11/26/2024 12:20 PM EST [facility] [address] [place] [phone] Semaj Jimenez MD [address] [place] [id number] Bronchitis, complicated*; Parkinson's disease, unspecified whether dyskinesia present, unspecified whether manifestations fluctuate (HCC); Pulmonary embolism and infarction (HCC); Nausea; Sialorrhea Allergies Active Allergy Reactions Criticality Noted Date Comments Erythromycin 10/07/2021 Drowsy Cyclobenzaprine Hcl 02/19/2014 Worsened rls, made her heart pound Nitroglycerin Low 01/09/2023 Other reaction(s): Headache Famotidine Other (Please comment) 2023 GI upset, nausea Sulfa Antibiotics Edema airway High 08/11/2004 Tolterodine Edema airway High 08/11/2004 Detrol LA documented as of this encounter (statuses as of 11/26/2024) Medications acetaminophen (TYLENOL) 325 MG Tablet Take 1 Tablet by mouth. 016 Active Tylenol PM Extra Strength 500-25 MG Oral Tablet (diphenhydrAMINE -APAP (sleep)) Take 1 Tablet by mouth daily as needed for Sleep. Active Carbidopa-Levodo pa 25-100 MG Oral Tablet (Sinemet) 1 tablet 3x daily 270 Tablet 1 024 Active Montelukast Sodium 10 MG Oral Tablet (Singulair)Indic ations:Chronic rhinitis,Cough TAKE 1 TAB BY MOUTH DAILY. FOR COUGH 90 Tablet 3 024 Active Klor-Con M10 10 MEQ Oral Tablet Extended Release (potassium chloride ER) TAKE 1 TABLET BY MOUTH EVERY DAY 90 Tablet 3 024 Active Escitalopram Oxalate 20 MG Oral Tablet (Lexapro)Indicat ions:Anxiety state,Adjustment disorder with depressed mood TAKE 1 TABLET BY MOUTH EVERY DAY IN THE MORNING 90 Tablet 1 024 Active Vitamin D 125 MCG (5000 UT) Oral Capsule Take 5,000 Units by mouth daily first thing in the morning. Active Calcium 500 MG Oral Tablet Take 1 Tablet by mouth in the morning. Active rOPINIRole HCl 1 MG Oral Tablet (Requip) TAKE 1 TABLET BY MOUTH EVERYDAY AT BEDTIME 90 Tablet 3 024 Active Ferrous Sulfate 325 (65 Fe) MG Oral Tablet Delayed Release Take 1 Tablet by mouth in the morning. 90 Tablet 9 024 Active tiZANidine HCl 2 MG Oral Tablet (Zanaflex) 1 TABLET TWICE A DAY 60 Tablet 1 024 Active Folic Acid 1 MG Oral Tablet Take 1 Tablet by mouth in the morning. 90 Tablet 9 025 Active Levothyroxine Sodium 50 MCG Oral Tablet (Levoxyl)Indicat ions:Hypothyroid ism, unspecified type TAKE 1 TABLET BY MOUTH EVERY MORNING (AT LEAST 30 MIN PRIOR TO BREAKFAST OR OTHER MEDS) 90 Tablet 1 025 Active methylPREDNISolo ne 4 MG Oral Tablet Therapy Pack (Medrol Dosepack) follow package directions 21 Tablet 025 Active Additional Information Patient not taking.Reported on 11/26/2024 Doxycycline Hyclate 100 MG Oral Capsule Take 1 Capsule by mouth in the morning and 1 Capsule before bedtime. Do all this for 10 days. Until gone.. 20 Capsule 025 2024 Active Additional Information Patient not taking.Reported on 11/26/2024 Fluticasone Propionate 50 MCG/ACT Nasal Suspension (Flonase) Administer 2 Sprays into each nostril in the morning. 16 g 5 025 Active Albuterol Sulfate HFA 108 (90 Base) MCG/ACT Inhalation Aerosol Solution Inhale 2 Puffs by mouth every 6 hours as needed (cough, chest congestion). 18 g 1 025 Active LORazepam 0.5 MG Oral Tablet (Ativan)Indicati ons:Anxiety state Take 1 Tablet by mouth 2 times a day as needed for Anxiety or Insomnia. 30 Tablet 025 Active Gabapentin 300 MG Oral Capsule (Neurontin)Indic ations:New onset of headaches after age 50 TAKE 1 CAPSULE BY MOUTH TWICE DAILY 180 Capsule 1 025 Active Ondansetron HCl 4 MG Oral Tablet (Zofran)Indicati ons:Nausea TAKE 1 TABLET BY MOUTH EVERY DAY IN THE MORNING AND AT BEDTIME 60 Tablet 3 025 Active Atropine Sulfate 1 % Ophthalmic SolutionIndicati ons:Sialorrhea 1-2 drop under you tongue every 8 hours as needed for drooling 2 mL 12 025 Active Ondansetron HCl 4 MG Oral Tablet (Zofran)Indicati ons:Nausea TAKE 1 TABLET BY MOUTH EVERY DAY IN THE MORNING AND AT BEDTIME 60 Tablet 3 024 2024 Discontinued(R efill) Saccharomyces boulardii 250 MG Oral Capsule (Florastor) Take 1 Capsule by mouth daily. 2024 Discontinued(P atient preference/dis continuation) Apixaban 5 MG Oral Tablet (Eliquis)Indicat ions: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),meterman current use of anticoagulant therapy TAKE 1 TABLET BY MOUTH AT 8AM AND THEN TAKE 1 TABLET AT 8PM. 180 Tablet 1 024 2024 Discontinued Omeprazole 40 MG Oral Capsule Delayed Release (PriLOSEC)Indica tions:Gastroesop hageal reflux disease without esophagitis TAKE 1 CAPSULE BY MOUTH EVERY DAY IN THE MORNING 90 Capsule 1 024 2024 Discontinued Lisinopril 2.5 MG Oral Tablet (Prinivil) TAKE 1 TABLET BY MOUTH EVERY DAY IN THE MORNING 90 Tablet 1 024 2024 Discontinued Atropine Sulfate 1 % Ophthalmic SolutionIndicati ons:Sialorrhea 1-2 drop under you tongue every 8 hours as needed for drooling 2 mL 12 024 2024 Discontinued(R efill) documented as of this encounter (statuses as of 11/26/2024) Active Problems Problem Noted Date Diagnosed Date Long-term current use of benzodiazepine 05/28/20 24 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 01/11/2024 Senile osteoporosis 07/07/2023 half-way current use of anticoagulant therapy 0 06/30/2022 [...] as of this encounter (statuses as of 11/26/2024) Resolved Problems Problem Noted Date Diagnosed Date [...] as of this encounter (statuses as of 11/26/2024) Immunizations Name Administration Dates Next Due COVID-19 mRNA, LNP-s, No Pre serve, 2-Dose Series (Moderna) 03/18/2021,02/18/2021 Pneumococcal Conjugate Vacc, 13 Valent (Prevnar) 10/30/2015 Pneumococcal Polysaccharide PPV23 (Pneumovax) 06/14/2007 Seasonal Influenza Vac., MDV , IM, 0.5 mL (Fluzone) 06/27/2015,07/16/2014,07/16/2013,1012/2011,08/09/2011,07/28/2010,06/26/20 09,07/22/2008,09/05/2007 Seasonal Influenza Virus Vac cine, Unspecified [...] Sign Reading Time Taken Comments Blood Pressure 110/62 11/26/2024 12:37 PM EST Pulse 99 11/26/2024 12:37 PM EST Temperature 36.2 °C (97.1 °F) 11/26/2024 12:[address] Respiratory Rate 16 11/26/2024 12:37 PM EST Oxygen Saturation 93% 11/26/2024 12:37 PM EST Inhaled Oxygen Concentration - - Weight 53.7 kg (118 lb 6.4 oz) 11/26/2024 12:37 PM EST Height - - Body Mass Index 25.62 08/31/2024 12:51 PM EST documented in this encounter Progress Notes * Semaj Jimenez MD - 11/26/2024 12:52 PM EST Subjective Sera Gutiérrez is a 84 year old female. Chief Complaint Patient presents with Follow Up Pt is here today for a 10 day follow up visit. Pt is having some trembling. HPI: Here for 10 days f/u on severe bronchitis Was having a lot of runny nose, drainage with severe cough Text in this note was generated using an iCAD documentation service. I discussed the use of a device to record and summarize our discussion today. All persons present during the encounter consented to its use History of Present Illness The patient, with a history of Parkinson's disease, presents for a follow-up visit after a recent episode of bronchitis. She was prescribed doxycycline, which she took for seven days but discontinueddue to severe neck discomfort, described as feeling like 'somebody was ripping my head off.' She also reports an increase in tremors, particularly in the hand, which she attributes to the medication.She expresses a strong reluctance to take doxycycline again in the future. Despite the incomplete course of antibiotics, the patient reports that her cough has improved significantly, although it has not completely resolved. She also notes that she has been experiencing nausea, for which she requests a refill of her geofrin prescription. 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 Carbidopa-Levodopa 25-100 MG Oral Tablet (Sinemet) 1 tablet 3x daily 270 Tablet 1 Montelukast Sodium 10 MG Oral Tablet (Singulair) [...] 1 Tablet by mouth in the morning. Apixaban 5 MG Oral Tablet (Eliquis) TAKE 1 TABLET BY MOUTH AT 8AM AND THEN TAKE 1 TABLET AT 8PM. 180 Tablet 1 rOPINIRole HCl 1 MG Oral Tablet (Requip) TAKE 1 TABLET BY MOUTH EVERYDAY AT BEDTIME 90 Tablet 3 Omeprazole 40 MG Oral Capsule Delayed Release (PriLOSEC) TAKE 1 CAPSULE BY MOUTH EVERY DAY IN THE MORNING 90 Capsule 1 Lisinopril 2.5 MG Oral Tablet (Prinivil) TAKE 1 TABLET BY MOUTH EVERY DAY IN THE MORNING 90 Tablet 1 Ferrous Sulfate 325 (65 Fe) MG Oral [...] BREAKFAST OR OTHER MEDS) 90 Tablet 1 Fluticasone Propionate 50 MCG/ACT Nasal [...] needed for Anxiety orInsomnia. 30 Tablet 0 Gabapentin 300 MG Oral Capsule (Neurontin) TAKE 1 CAPSULE BY MOUTH TWICE DAILY 180 Capsule 1 Ondansetron HCl 4 MG Oral Tablet (Zofran) TAKE 1 TABLET BY MOUTH EVERY DAY IN THE MORNING AND AT BEDTIME 60 Tablet 3 Atropine Sulfate 1 % Ophthalmic Solution 1-2 drop under you tongue every 8 hours as needed for drooling 2 mL 12 methylPREDNISolone 4 MG Oral Tablet Therapy Pack (Medrol Dosepack) follow package directions (Patient not taking: Reported on 11/26/2024) 21 Tablet 0 Doxycycline Hyclate 100 MG Oral Capsule Take 1 Capsule by mouth in the morning and 1 Capsule beforebedtime. Do all this for 10 days. Until gone.. (Patient not taking: Reported on 11/26/2024) 20 Capsule 0 No current facility-administered medications for this [...] performed by Ade Pleitez MD at ENDOSCOPY [facility] COLONOSCOPY, DIAGNOSTIC (RECTUM) 04/07/2016 normal/[facility] EGD, FLEXIBLE, DIAGNOSTIC 07/13/2012 ademomatous-repeat EGD in 6 months/UPPER GI ENDOSCOPY DIAGNOSTIC performed by Ade Pleitez MD at ENDOSCOPY [facility] EGD, FLEXIBLE, DIAGNOSTIC 01/05/2013 UPPER GI ENDOSCOPY DIAGNOSTIC performed by Ade Pleitez MD at ENDOSCOPY [facility] EGD, FLEXIBLE, DIAGNOSTIC 08/15/2014 normal/done @ [facility] EGD, FLEXIBLE, DIAGNOSTIC 04/07/2016 normal bx/[facility] EGD, FLEXIBLE, DIAGNOSTIC 07/13/2019 normal bx/ESOPHAGOGASTRODUODENOSCOPY (EGD), FLEXIBLE, TRANSORAL, DIAGNOSTIC performed by Rosa Luciano MD at ENDOSCOPY [facility] EGD, FLEXIBLE, DIAGNOSTIC 11/25/2021 normal / ESOPHAGOGASTRODUODENOSCOPY (EGD), FLEXIBLE, TRANSORAL, DIAGNOSTIC performed by David Nazario MD at ENDOSCOPY [facility] EGD, FLEXIBLE, DIAGNOSTIC 09/14/2023 normal/ESOPHAGOGASTRODUODENOSCOPY (EGD), FLEXIBLE, TRANSORAL, DIAGNOSTIC performed by David Nazario MD at ENDOSCOPY [facility] EGD, FLEXIBLE, W/BIOPSY 11/19.2009 done mild gastritis, z line irregular 36 cms from incisorsmild chronic inflammation REMOVE GALLBLADDER [address] Padilla for bone spurs TOTAL ABD HYSTERECTOMY W/WO REMOVAL OF TUBE(S) 1983 TOTAL HYSTERECTOMY 1983 TOTAL KNEE REPLACEMENT EDU. 07/15/2015 Dr Young, RIGHT Review of patient's allergies indicates: Allergen Reactions Sulfa Antibiotics Edema airway Tolterodine Edema airway Detrol LA Erythromycin Drowsy Flexeril [Cyclobenzaprine Hcl] Worsened rls, made her heart pound Pepcid [Famotidine] Other (Please comment) GI upset, nausea Nitroglycerin Other reaction(s): Headache Family History Problem Relation Name Age of Onset Parkinsonism Mother age 68, 1970 Diabetes Father Heart Disorder Father age 95 Other (Unknown) Sister Bhavya age 89 Lung Disorder Sister Mariah Oxygen dependent, age 84 Colon cancer Brother Heart disease Brother h/o CABG, 70 Family Status Relation Status Mo at age 68 Parkinsons Fa at age 95 Heart Sis Sis Bro at age 70 colon cancer Lolis Alive Hyperlipidemia Son at age 17 Car accident Son Alive Son Alive HTN Son Alive Hyperlipidemia Social History Socioeconomic History Marital status: Spouse [...] Stability Do you currently live in a mcc or have no steady place to sleep [...] ages0-17 years): Not on file Review of Systems Constitutional: Positive for activity change (more tremor in hands ?) and fatigue (chronic). Negative for appetite change, chills, diaphoresis, fever and unexpected weight change. HENT: Negative for congestion, postnasal drip and rhinorrhea. Respiratory: Negative for cough, chest tightness, shortness of breath and wheezing. Cardiovascular: Negative for chest pain, palpitations and leg swelling. Musculoskeletal: Positive for arthralgias and gait problem. Neurological: Positive for tremors and weakness (generalized). Negative for dizziness and light-headedness. Psychiatric/Behavioral: Positive for sleep disturbance. Negative for agitation and behavioral problems. The patient is nervous/anxious. Objective BP 110/62 | Pulse 99 | Temp 97.1 °F (36.2 °C) (Infrared ) | Resp 16 | Wt 118 lb 6.4 oz (53.7 kg) | SpO2 93% | BMI 25.62 kg/m² | BSA 1.47 m² Physical Exam Constitutional: General: She is not in acute distress. Appearance: Normal appearance. She is not ill-appearing, toxic-appearing or diaphoretic. HENT: Head: Normocephalic and atraumatic. Nose: Nose normal. Eyes: Extraocular Movements: Extraocular movements intact. Cardiovascular: Rate and Rhythm: Normal rate and regular rhythm. Pulses: Normal pulses. Heart sounds: Normal heart sounds. Pulmonary: Effort: Pulmonary effort is normal. No respiratory distress. Breath sounds: Normal breath sounds. No stridor. No wheezing, rhonchi or rales. Chest: Chest wall: No tenderness. Musculoskeletal: Right lower leg: No edema. Left lower leg: No edema. Neurological: Mental Status: She is alert and oriented to person, place, and time. Psychiatric: Behavior: Behavior normal. ASSESSMENT/PLAN: Bronchitis, complicated (Primary) Parkinson's disease, unspecified whether dyskinesia present, unspecified whether manifestations fluctuate (HCC) Pulmonary embolism and infarction (HCC) Nausea - Ondansetron HCl 4 MG Oral Tablet (Zofran); TAKE 1 TABLET BY MOUTH EVERY DAY IN THE MORNING AND ATBEDTIME Sialorrhea - Atropine Sulfate 1 % Ophthalmic Solution; 1-2 drop under you tongue every 8 hours as needed for drooling Assessment & Plan Bronchitis Improved after 7 days of Doxycycline. Patient reported adverse effects including neck pain and increased tremors, but has now completed the course. Lung sounds clear on examination. -No further antibiotics required at this time. Parkinson's Disease Increased tremors, possibly exacerbated by recent infection and Doxycycline use. Patient has an upcoming appointment with neurologist. -Encourage hydration and good nutrition. -Observe for a few more weeks and communicate with neurologist if tremors do not improve. Nausea Patient requested refill of Geofrin. -Refill Geofrin as requested. Atropen Patient requested refill. -Refill Atropen as requested. Semaj Jimenez MD documented in this encounter Nursing Notes * Savi Devlin LPN - 11/26/2024 12:18 PM EST Chief Complaint Patient presents with Follow Up Pt is here today for a 10 day follow up visit documented in this encounter Plan of Treatment Upcoming Encounters Date Type Department Care Team (Late st Contact Info) Description 12/03/2024 2:30 PM EST Office Visit [facility] [address] [facility] [phone] Betsy Tompkins CRNP [address] [facility] [place] [address] 12/31/2024 11:50 AM EDT Office Visit [facility] Carol Wild [address] [phone] Vika Castellanos DO [address] [phone] 03/25/2025 10:30 AM EDT Imaging Radiology [facility] [address] [place] [phone] 04/02/2025 10:30 AM EDT Office Visit Gastroenterology, [facility] [address] [place] [address] Lacy Tompkins CRNP [address] [place] [address] 04/16/2025 1:00 PM EDT Office Visit Neurology [facility] [address] [place] [address] Hung Ennis, DO [address] [place] [address] Health Maintenance Due Date Last Done Comments [...] D LEVEL ONCE IN A LIFETIME-USE SMARTSET# [id number] Completed 07/20/2024, 07/07/2023, 03/25/2022, Additional history exists [...] as of this encounter Visit Diagnoses Diagnosis Bronchitis, complicated- Primary Bronchitis, not specified as acute or chronic Parkinson's disease, unspecified whether dyskinesia present, unspecified whether manifestations fluctuate (HCC) Pulmonary embolism and infarction (HCC) Other pulmonary embolism and infarction Nausea Nausea alone Sialorrhea Disturbance of salivary secretion documented in this encounter Care Teams It Trainee Relationship Specialty Start Date End Date Vika Castellanos DO [address] [id number] PCP - General Family Medicine 05/22/12 documented as of this encounter"
--- OUTSIDE RECORDS SUMMARY | 2025-02-03 18:38 | External Medical Summary | Summary of Care ---
Author Name Unknown Organization [facility] Address [address] [facility] [address] Phone [phone] Care Team Providers Care Dust Collector Name Role Phone Vika Castellanos DO Primary Care Provider [phone] Reason for Visit * Reason Comments eRx-Medication Refill Encounter Details Date Type Department Care Team (Late st Contact Info) Description 11/25/2024 Refill Gastroenterology, [facility] [address] [place] [address] Laurie Tompkins CRNP [address] [place] [address] Gastroesophageal reflux disease without esophagitis Allergies Active Allergy Reactions Criticality Noted Date [...] Until gone.. 20 Capsule 11/16/19 25 2024 Active Additional Information Patient not taking.Reported [...] MORNING 90 Capsule 1 11/26/19 25 Active Apixaban 5 MG Oral Tablet (Eliquis)Indicat ions: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),[facility] current use of anticoagulant therapy TAKE 1 TABLET BY MOUTH AT 8AM AND THEN TAKE 1 TABLET AT 8PM. 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 01/11/2024 Senile osteoporosis 07/07/2023 [facility] current use of anticoagulant therapy 0 06/30/2022 [...] encounter Miscellaneous Notes * Telephone Encounter - Aiden Shirley RPh - 11/26/2024 2:58 PM ESTSigned Prescriptions: Disp Refills Omeprazole 40 MG Oral Capsule Delayed Rele*90 Cap*1 Sig: TAKE 1 CAPSULE BY MOUTH EVERY DAY IN THE MORNINGAuthorizing Provider: LAURIE TOMPKINS User: AIDEN SHIRLEY * Telephone Encounter - Mya London - 11/25/2024 1:17 PM ESTPending Prescriptions: Disp Refills Omeprazole 40 MG Oral Capsule Delayed Rele*90 Cap*1 Sig: TAKE 1 CAPSULE BY MOUTH EVERY DAY IN THE MORNING * Telephone Encounter - Mya London - 11/25/2024 1:15 PM EST Did you pend patient's preferred pharmacy and medication before forwarding?yes Pharmacy: [id number] [address] [facility] Pending Prescriptions: Disp Refills Omeprazole 40 MG Oral Capsule Delayed Rel*90 Cap*1 Sig: TAKE 1 CAPSULE BY MOUTH EVERY DAY IN THE MORNING Last Visit: 09/26/2024 (in office), 10/07/2021 (telemedicine) Next Visit: 04/02/2025 If no future appointments scheduled, and last appointment is greater than a year ago, please schedule patient for a follow-up appointment Last date the medication was ordered: 06/27/2024 Is this request for a controlled substance?No [...] 12/03/2024 2:30 PM EST Office Visit [facility]ology[facility] [place] [address] [facility] [phone] Betsy Tompkins CRNP [address] [facility] [place] [address] 12/31/2024 11:50 AM EDT Office Visit [facility] [address] [phone] Vika Castellanos DO [address] [address] 03/25/2025 10:30 AM EDT Imaging Radiology [facility] [address] [place] [phone] 04/02/2025 10:30 AM EDT Office Visit Gastroenterology, [facility] [address] [place] [address] Laurie Tompkins CRNP [address] [place] [address] 04/16/2025 1:00 PM EDT Office Visit Neurology [facility] [address] [place] [address] Hung Ennis, DO [address] [place] [address] Health Maintenance Due Date Last Done Comments [...] D LEVEL ONCE IN A LIFETIME-USE SMARTSET# [id number] Completed 07/20/2024, 07/07/2023, 03/25/2022, Additional history exists [...] as of this encounter Visit Diagnoses Diagnosis Gastroesophageal reflux disease without esophagitis Esophageal reflux documented in this encounter Care Teams Dust Collector Relationship Specialty Start Date End Date Vika Castellanos DO [address] [phone] PCP - General Family Medicine 05/22/12 documented as of this encounter
--- OUTSIDE RECORDS SUMMARY | 2025-02-03 18:38 | External Medical Summary | Summary of Care ---
Author Name Unknown Organization [facility] Address [address] [place] [address] Phone [phone] Care Team Providers Care Technical Service Rep Name Role Phone Vika Castellanos DO Primary Care Provider [phone] Reason for Visit * Reason Comments eRx-Medication Refill Encounter Details Date Type Department Care Team (Late st Contact Info) Description 11/25/2024 Refill Neurology [facility] [address] [place] [id number] Hung Ennis DO [address] [place] [address] New onset of headaches after age 50 Allergies Active Allergy Reactions Criticality Noted Date [...] Tablet by mouth in the morning. 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 20 Capsule 11/16/19 25 2024 Active Fluticasone Propionate 50 MCG/ACT Nasal Suspension [...] or Insomnia. 30 Tablet 11/21/19 25 Active Gabapentin 300 MG Oral Capsule (Neurontin)Indic ations:New onset of headaches after age 50 TAKE 1 CAPSULE BY MOUTH TWICE DAILY 180 Capsule 1 11/26/19 25 Active Gabapentin 300 MG Oral Capsule (Neurontin)Indic ations:New onset of headaches after age 50 TAKE 1 CAPSULE BY MOUTH TWICE DAILY 180 Capsule 1 04/12/20 24 2024 Discontinued Ondansetron HCl 4 MG Oral Tablet (Zofran)Indicati ons:Nausea TAKE 1 TABLET BY MOUTH EVERY DAY IN THE MORNING AND AT BEDTIME 60 Tablet 3 06/19/20 24 2024 Discontinued(R efill) Saccharomyces boulardii 250 MG Oral Capsule (Florastor) Take 1 Capsule by mouth daily. 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 01/11/2024 Senile osteoporosis 07/07/2023 USP current use of anticoagulant therapy 0 06/30/2022 [...] Telephone Encounter - Hung Ennis DO - 11/26/2024 10:20 AM EST Signed Prescriptions: Disp Refills Gabapentin 300 MG Oral Capsule (Neurontin) 180 Ca*1 Sig: TAKE 1 CAPSULE BY MOUTH TWICE DAILY Authorizing Provider: HUNG ENNIS * Telephone Encounter - Daly Car LPN - 11/26/2024 8:52 AM ESTPending Prescriptions: Disp Refills Gabapentin 300 MG Oral Capsule [Pharmacy M*180 Ca*1 Sig: TAKE 1 CAPSULE BY MOUTH TWICE DAILY * Telephone Encounter - Daly Car LPN - 11/26/2024 8:49 AM EST Last OV 08/31/24 Next OV 04/16/25 Last ordered 6/27/24 per chart * Telephone Encounter - Mya London - 11/25/2024 8:08 PM ESTPending Prescriptions: Disp Refills Gabapentin 300 MG Oral Capsule [Pharmacy M*180 Ca*1 Sig: TAKE 1 CAPSULE BY MOUTH TWICE DAILY * Telephone Encounter - May London - 11/25/2024 8:06 PM EST Did you pend patient's preferred pharmacy and medication before forwarding?yes Pharmacy: [id number] [address] [facility] Pending Prescriptions: Disp Refills Gabapentin 300 MG Oral Capsule (Neurontin*180 Ca*1 Sig: TAKE 1 CAPSULE BY MOUTH TWICE DAILY Last Visit: 08/31/2024 (in office), 02/15/2020 (telemedicine) Next Visit: 04/16/2025 If no future appointments scheduled, and last appointment is greater than a year ago, please schedule patient for a follow-up appointment Last date the medication was ordered: 04/12/2024 Is this request for a controlled substance?No [...] 12/03/2024 2:30 PM EST Office Visit Hematology/Oncology [facility] [place] [address] [facility] [place] [phone] Betsy Tompkins CRNP [address] [place] [address] 12/31/2024 11:50 AM EDT Office Visit Former[facility] Named [facility] [address] [facility] [phone] Vika Castellanos DO [address] [facility] [place] [address] 03/25/2025 10:30 AM EDT Imaging Radiology [facility] [address] [place] [phone] 04/02/2025 10:30 AM EDT Office Visit Gastroenterology, [facility] [address] [place] [address] Lacy Tompkins CRNP [address] [place] [address] 04/16/2025 1:00 PM EDT [facility] [place] [address] [place] [address] Hung Ennis DO [address] [place] [address] Health Maintenance Due Date Last Done Comments Zoster Vaccines (2 of 3) 09/13/2013 07/19/2013 Adult Wellness Visit 10/30/2016 10/30/2015 COVID-19 Vaccine (3 - season) 2024 03/18/2021, 02/18/2021 TSH 02/19/2025 02/20/2024, 12/01/2023, 07/07/2023, Additional history exists DXA Scan 03/22/2025 03/22/2023, 03/17, 02/08/2012, Additional history exists Depression Monitoring 11/26/2025 11/26/2024 DTap/Tdap Vaccines (2 - Td or Tdap) 11/05/2031 11/05/2021, 07/22/2008 Pneumococcal Vaccine: 50+ Years Completed 10/30/2015, 06/14/2007 Influenza Vaccine (FLU shot) Completed 03/2024, 07/07/2023, 06/30/2022, Additional history exists VITAMIN D LEVEL ONCE IN A LIFETIME-USE SMARTSET# 28424 Completed 07/20/2024, 07/07/2023, 03/25/2022, Additional history exists [...] as of this encounter Visit Diagnoses Diagnosis New onset of headaches after age 50 Headache documented in this encounter Care Teams Technical Service Rep Relationship Specialty Start Date End Date Vika Castellanos DO [place] [address] PCP - General Family Medicine 05/22/12 documented as of this encounter
--- OUTSIDE RECORDS SUMMARY | 2025-02-03 18:38 | External Medical Summary | Summary of Care ---
Author Name Unknown Organization [facility] Address [address] [facility] [address] Phone [phone] Care Team Providers Care Armature Winder Name Role Phone Art Acosta DO Primary Care Provider [phone] Reason for Visit * Reason Onset Date Comments Medication Refill 11/07/2024 Encounter Details Date Type Department Care Team (Late st Contact Info) Description [facility] [address] [place] [phone] Art Acosta DO [address] [place] [address] Allergies Active Allergy Reactions Criticality Noted Date Comments Erythromycin 10/07/2021 Drowsy Cyclobenzaprine Hcl 02/19/2014 Worsened rls, made her heart pound Nitroglycerin Low 01/09/2023 Other reaction(s): Headache Famotidine Other (Please comment) 2023 GI upset, nausea Sulfa Antibiotics Edema airway High 08/11/2004 Tolterodine Edema airway High 08/11/2004 Detrol LA documented as of this encounter (statuses as of 11/08/2024) Medications acetaminophen (TYLENOL) 325 MG Tablet Take 1 Tablet by mouth. 6 Active Tylenol PM Extra Strength 500-25 MG Oral Tablet (diphenhydrAMINE- APAP (sleep)) Take 1 Tablet by mouth daily as needed for Sleep. Active Levothyroxine Sodium 50 MCG Oral Tablet (Levoxyl)Indicati ons:Hypothyroidis m, unspecified type TAKE 1 TABLET BY MOUTH EVERY MORNING (AT LEAST 30 MIN PRIOR TO BREAKFAST OR OTHER MEDS) 90 Tablet 3 4 Active Carbidopa-Levodop a 25-100 MG Oral Tablet (Sinemet) 1 tablet 3x daily 270 Tablet 1 4 Active Montelukast Sodium 10 MG Oral Tablet (Singulair)Indica tions:Chronic rhinitis,Cough TAKE 1 TAB BY MOUTH DAILY. FOR COUGH 90 Tablet 3 4 Active Klor-Con M10 10 MEQ Oral Tablet Extended Release (potassium chloride ER) TAKE 1 TABLET BY MOUTH EVERY DAY 90 Tablet 3 4 Active Gabapentin 300 MG Oral Capsule (Neurontin)Indica tions:New onset of headaches after age 50 TAKE 1 CAPSULE BY MOUTH TWICE DAILY 180 Capsule 1 4 Active Escitalopram Oxalate 20 MG Oral [...] MORNING AND AT BEDTIME 60 Tablet 3 4 Active Saccharomyces boulardii 250 MG Oral Capsule (Florastor) Take 1 Capsule by mouth daily. 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 180 Tablet 1 4 Active rOPINIRole HCl 1 MG Oral Tablet (Requip) TAKE 1 TABLET BY MOUTH EVERYDAY AT BEDTIME 90 Tablet 3 4 Active Omeprazole 40 MG Oral Capsule Delayed Release (PriLOSEC)Indicat ions:Gastroesopha geal reflux disease without esophagitis TAKE 1 CAPSULE BY MOUTH EVERY DAY IN THE MORNING 90 Capsule 1 4 Active Lisinopril 2.5 MG Oral Tablet (Prinivil) TAKE 1 TABLET BY MOUTH EVERY DAY IN THE MORNING 90 Tablet 1 4 Active Ferrous Sulfate 325 (65 Fe) MG Oral Tablet Delayed Release Take 1 Tablet by mouth in the morning. 90 Tablet 9 4 Active Atropine Sulfate 1 % Ophthalmic SolutionIndicatio ns:Sialorrhea 1-2 drop under you tongue every 8 hours as needed for drooling 2 mL 12 4 Active tiZANidine HCl 2 MG Oral Tablet (Zanaflex) 1 TABLET TWICE A DAY 60 Tablet 1 4 Active LORazepam 0.5 MG Oral Tablet (Ativan)Indicatio ns:Anxiety state Take 1 Tablet by mouth 2 times a day as needed for Anxiety or Insomnia. 30 Tablet 5 Active Folic Acid 1 MG Oral Tablet Take 1 Tablet by mouth in the morning. 90 Tablet 9 5 Active Folic Acid 1 MG Oral Tablet Take 1 Tablet by mouth in the morning. 90 Tablet 9 4 025 Discontin ued(Refil l) documented as of this encounter (statuses as of 11/08/2024) Active Problems Problem Noted Date Diagnosed Date [...] as of this encounter (statuses as of 11/08/2024) Resolved Problems Problem Noted Date Diagnosed Date [...] as of this encounter (statuses as of 11/08/2024) Immunizations Name Administration Dates Next Due COVID-19 [...] Telephone Encounter - Art Acosta DO - 11/08/2024 9:35 AM ESTSigned Prescriptions: Disp Refills Folic Acid 1 MG Oral Tablet 90 Tab*9 Sig: Take 1 Tablet by mouth in the morning. Authorizing Provider: ART ACOSTA * Telephone Encounter - Ramin Gage Negrito, AKREN - 11/07/2024 11:56 AM EST Did you pend patient's preferred pharmacy and medication before forwarding?yes Pharmacy: Pending Prescriptions: Disp Refills Folic Acid 1 MG Oral Tablet 90 Tab*9 Sig: Take 1 Tablet by mouth in the morning. Last Visit: Visit date not found (in office), Visit date not found (telemedicine) Next Visit: 12/31/2024 If no future appointments scheduled, and last appointment is greater than a year ago, please schedule patient for a follow-up appointment Last date the medication was ordered: 09/12/24 Is this request for a controlled substance?No [...] Laboratory Laboratory, [facility] [address] [place] [phone] [facility] [address] [place] [address] 12/03/2024 2:30 PM EST [facility]ology[facility]On[facility] [address] [facility] [phone] Betsy Tompkins CRNP [address] [place] [address] 12/31/2024 11:50 AM EDT Office Visit Family Practice, [facility] [address] [place] [phone] Art Acosta DO [address] [place] [address] 03/25/2025 10:30 AM EDT Imaging Radiology [facility] [address] [place] [phone] 04/02/2025 10:30 AM EDT Office Visit Gastroenterology, [facility] [address] [place] [address] Lacy Tompkins CRNP [address] [place] [address] 04/16/2025 1:00 PM EDT [facility] [address] [place] [address] Hung Ennis, [address] [place] [address] Health Maintenance Due Date Last Done Comments [...] D LEVEL ONCE IN A LIFETIME-USE SMARTSET# [id number] Completed 07/20/2024, 07/07/2023, 03/25/2022, Additional history exists [...] filedocumented as of this encounter Care Teams Armature Winder Relationship Specialty Start Date End Date Art Acosta DO PCP - General Family Medicine 05/22/12 documented as of this encounter
--- OUTSIDE RECORDS SUMMARY | 2025-02-03 18:38 | External Medical Summary | Summary of Care ---
Author Name Unknown Organization [facility] Address [address] [place] [address] Phone [phone] Care Team Providers Care Air Hammer Stripper Name Role Phone Vika Castellanos DO Primary Care Provider [phone] Reason for Visit * Reason Comments Cough Pt here today due to having a cough Encounter Details Date Type Department Care Team (Late st Contact Info) Description 11/16/2024 2:40 PM EST Office Visit [facility] Carol Burgos [address] [phone] Semaj Jimenez MD [address] [id number] Bronchitis, complicated*; Risk and functional assessment; Chronic rhinitis; 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); 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); Pulmonary embolism and infarction (HCC) Allergies Active Allergy Reactions Criticality Noted Date Comments Erythromycin 10/07/2021 Drowsy Cyclobenzaprine Hcl 02/19/2014 Worsened rls, made her heart pound Nitroglycerin Low 01/09/2023 Other reaction(s): Headache Famotidine Other (Please comment) 2023 GI upset, nausea Sulfa Antibiotics Edema airway High 08/11/2004 Tolterodine Edema airway High 08/11/2004 Detrol LA documented as of this encounter (statuses as of 11/16/2024) Medications acetaminophen (TYLENOL) 325 MG Tablet Take [...] follow package directions 21 Tablet 5 Active Doxycycline Hyclate 100 MG Oral Capsule Take 1 Capsule by mouth in the morning and 1 Capsule before bedtime. Do all this for 10 days. Until gone.. 20 Capsule 5 11/26/19 25 Active Fluticasone Propionate 50 MCG/ACT Nasal Suspension (Flonase) Administer 2 Sprays into each nostril in the morning. 16 g 5 5 Active Albuterol Sulfate HFA 108 (90 Base) MCG/ACT Inhalation Aerosol Solution Inhale 2 Puffs by mouth every 6 hours as needed (cough, chest congestion). 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 [...] as of this encounter (statuses as of 11/16/2024) Resolved Problems Problem Noted Date Diagnosed Date [...] as of this encounter (statuses as of 11/16/2024) Immunizations Name Administration Dates Next Due COVID-19 [...] Passive Smoke Exposure: Past Smokeless Tobacco: Never Tobacco Cessation:Counseling Given: Not [...] Sign Reading Time Taken Comments Blood Pressure 100/60 11/16/2024 2:44 PM EST Pulse 81 11/16/2024 2:44 PM EST Temperature 35.6 °C (96.1 °F) 11/16/2024 2:44 PM ES T Respiratory Rate 18 11/16/2024 2:44 PM EST Oxygen Saturation 98% 11/16/2024 2:44 PM EST Inhaled Oxygen Concentration - - Weight 54.9 kg (121 lb 1.6 oz) 11/16/2024 2:44 P M EST Height - - Body Mass Index 26.21 08/31/2024 12:51 PM EST documented in this encounter Patient Instructions * Patient Instructions* Savi Devlin LPN - 11/16/2024 2:47 PM EST Patient Instructions - Fall Prevention (This education is for all patients over 65 regardless of symptoms) Remember to take your current medications as prescribed. In order to prevent falls, you are encouraged to: Exercise Utilize assistive/adaptive devices Avoid multifocal lenses when walking Avoid hazards in home Maintain a regular toileting schedule Any questions please contact our office. Preventing Falls in the Home (This education is for all patients over 65 regardless of symptoms) As you get older, falls are more likely. That’s because your reaction time slows. Your muscles and joints may also get stiffer, making them less flexible. Illness, medications, and vision changes can also affect your balance. A fall could leave you unable to live on your own. To make your home safer, follow these tips: Floors Put nonskid pads under area rugs Remove throw rugs Replace worn floor coverings Tack carpets firmly to each step on carpeted stairs. Put nonskid strips on the edges of uncarpeted stairs Keep floors and stairs free of clutter and cords Arrange furniture so there are clear pathways Clean up any spills right away Bathrooms Install grab bars in the tub or shower Apply nonskid strips or put a nonskid rubber mat in the tub or shower Sit on a bath chair to bathe Use bathmats with nonskid backing Lighting Keep a flashlight in each room Put a nightlight along the pathway between the bedroom and the bathroom Mark Patient Education Copyright© 2008 - 2010 Mark except where otherwise noted Preventing Falls: Exercises to Improve Balance, Flexibility, Strength, and Staying Power (This education is for all patients over 65 regardless of symptoms) Certain types of exercises may help make you less likely to fall. Try the ones below. Or do other exercises that your healthcare provider suggests. Depending on your health, you may need to start slowly. Don’t let that stop you. Even small amounts of exercise can help you. Be sure to talk to yourhealthcare provider before starting any exercise program. Improve Balance Many types of exercise can help improve balance. Scar chi and yoga are good examples. Here’s another one to try. You can do it anytime and almost anywhere. Stand next to a counter or solid support. Push yourself up onto your tiptoes. Hold for 5 seconds. If you start to lose your balance, hold on to the counter. Rest and repeat 5 times. Work up to holding for 20 to 30 seconds, if you can. Increase Flexibility Being more flexible makes it easier for you to move around safely. Try exercises like the seated hamstring stretch. Sit in a chair and put one foot on a stool. Straighten your leg and reach with both hands down either side of your leg. Reach as far down your leg as you can. Hold for about 20 seconds. Go back to the starting position. Then repeat 5 times. Switch legs. Build Strength “Resistance” exercises help build strength. You can do them without equipment. Or you can use weights, elastic bands, or special machines. One such exercise is called the biceps curl. You can hold a 1 pound weight or even a can of soup. Do this exercise at least 3 times a week. Strive for everyday. Sit up straight in a chair. Keep your elbow close to your body and your wrist straight. Bend your arm, moving your hand up to your shoulder. Then slowly lower your arm. Repeat 5 times. Switch to the other arm. Build Your Staying Power “Aerobic” exercises make your heart and lungs stronger so you can keep moving longer. Walking and swimming are two of the best types of exercises you can do. Using a stationary bike is great, too. Find an aerobic exercise that you enjoy. Start slowly and build up. Even 5 minutes is helpful. Aimfor a goal of 30 minutes, at least 3 times a week. You don’t have to do 30 minutes in one session. Break it up and walk a little throughout the day. More Helpful Tips Start easy. Slowly work up to doing more. Talk with your healthcare provider about the best exercises for you. Call senior centers or health clubs about exercise programs. If needed, have a family member watch you walk every so often to check your stability. Exercise with a friend. Choose an activity you both enjoy. Try exercises that you can do anytime, anywhere. Here are two examples. Have someone with you when you first try these: Practice walking by placing one foot right in front of the other. Stand up and sit down 10 times. Repeat this throughout the day. Mark Patient Education Copyright© 2008 - 2010 Mark except where otherwise noted. Preventing Falls: Moving Safely Using a Cane or Walker (This education is for all patients over 65 regardless of symptoms) Keep the cane away from your feet so you don’t trip. A walking aid, such as a cane or walker, can help you stay more independent and avoid falls. Remember to keep your walking aid within easy reach when you’re in a chair or in bed. And learn how to use it safely so you don’t injure yourself. Using a Cane If you have a stronger side, hold the cane on that side. Get your balance. Move the cane and your weaker leg forward. Support your weight on both the cane and your weaker side. Step with your stronger leg. Start again from step 1. If you’re using a folding walker, be sure you know how to lock it open. Check that it’s locked open before each use. Using a Walker Roll the walker (or lift it, if you’re using one without wheels) forward about 12 inches. Step forward with your weaker leg first. Use the walker to help keep your balance. Bring your other foot forward to the center of the walker. Start again from step 1. Helpful Tips Check with your healthcare provider about the right walking aid to use. Ask about a walker with a seat attached. Check the tips of your cane or walker to make sure they have nonskid covers. Move slowly from room to room. Don’t nowak. Sit down to get dressed. Use a rita pack or backpack to keep your hands free. Get help for jobs that mean climbing, even on a stepstool. Mark Patient Education Copyright© 2008 - 2010 Mark except where otherwise noted. Urinary Incontinence Plan of Care Documentation: (This education is for all patients over 65 regardless of symptoms) Current medications reconciled. Patient encouraged to: Practice kegal exercises Provide education materials Use the restroom every 2 hours throughout the day Limit caffeine, alcohol, spicy foods and acidic foods Keep a bladder diary Limit fluid intake 3-4 hours before bed Lose weight Prevent constipation Take fluid pills at a time when you can get to the bathroom quickly Control sugar better if diabetic Limit fluid intake to 60 oz. per day Wear support stockings (TEDs)if you have edema Savi Devlin LPN 11/16/2024 Kegel Exercises Kegel exercises don’t require special clothing or equipment. They’re easy to learn and simple to do. And if you do them right, no one can tell you’re doing them, so they can be done almost anywhere. Your doctor, nurse, or physical therapist can answer any questions you have and help you get started. A Weak Pelvic Floor The pelvic floor muscles may weaken due to aging, and vaginal childbirth, injury, surgery, chronic cough, or lack of exercise. If the pelvic floor is weak, your bladder and other pelvic organs may sag out of place. The urethra may also open too easily and allow urine to leak out. Kegel exercises can help you strengthen your pelvic floor muscles so they can better support the pelvic organs and control urine flow. How Kegel Exercises Are Done Try each of the Kegel exercises described below. When you’re doing them, try not to move your leg, buttock, or stomach muscles. While you’re urinating, try to stop the flow of urine. Start and stop it as often as you can. Contract as if you were stopping your urine stream, but do it when you’re not urinating. Tighten your rectum as if trying not to pass gas. Contract your anus, but don’t move your buttocks. Helpful Hints Do your Kegels as often as you can. The more you do them, the faster you’ll feel the results. Pick an activity you do often as a reminder. For instance, do your Kegels every time you sit down. Tighten your pelvic floor before you sneeze, get up from a chair, cough, laugh, or lift. This protects your pelvic floor from injury and can help prevent urine leakage. Try to hold each Kegel for a slow count to five. You probably won’t be able to hold them for thatlong at first, but keep practicing. It will get easier as your pelvic floor gets stronger. Eventually, special weights that you place in your vagina may be recommended to help make your Kegels even more effective. Mark Patient Education Copyright© 2008 - 2010 Mark except where otherwise noted. Here are some helpful tips for your urinary incontinence: (This education is for all patients over 65 regardless of symptoms) Practice Kegel exercises Use the restroom every 2 hours throughout the day Limit caffeine, alcohol, spicy foods, and acidic foods Keep a bladder diary Limit fluid intake 3-4 hours before bed Lose weight Prevent constipation Take fluid pills at a time when can get to the bathroom quickly Control sugar better if diabetic Limit fluid intake to 60 oz. per day Any questions, please feel free to contact our office. documented in this encounter Progress Notes * Semaj Jimenez MD - 11/16/2024 3:37 PM EST Subjective Sera Gutiérrez is a 84 year old female. Chief Complaint Patient presents with Cough Pt here today due to having a cough HPI: Cough Associated symptoms include postnasal drip, rhinorrhea and shortness of breath. Pertinent negativesinclude no chest pain, chills or fever. Text in this note was generated using an [employer] documentation service. I discussed the use of a device to record and summarize our discussion today. All persons present during the encounter consented to its use History of Present Illness The patient, with a history of Parkinson's disease and pulmonary embolism, presents with a cough that started suddenly on Tuesday. She denies fever but reports feeling hot intermittently, which is a common occurrence for her. She denies chest pain beyond her usual discomfort. She reports sinus congestion and drainage, with one nostril running more than the other. The cough is associated with a scratchy throat, particularly after prolonged coughing. She is currently on blood thinners for a history of pulmonary embolism and takes Singulair (montelukast) in the morning for her sinus symptoms. Shedenies any changes in her Parkinson's symptoms with the onset of the cough. 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 Ondansetron HCl 4 MG Oral Tablet (Zofran) TAKE 1 TABLET BY MOUTH EVERY DAY IN THE MORNING AND AT BEDTIME 60 Tablet 3 Apixaban 5 MG Oral Tablet [...] mouth in the morning. 90 Tablet 9 Atropine Sulfate 1 % Ophthalmic Solution 1-2 drop under you tongue every 8 hours as needed for drooling 2 mL 12 tiZANidine HCl 2 MG Oral Tablet (Zanaflex) 1 TABLET TWICE A DAY 60 Tablet 1 LORazepam 0.5 MG Oral Tablet (Ativan) Take 1 Tablet by mouth 2 times a day as needed for Anxiety orInsomnia. 30 Tablet 0 Folic Acid 1 MG Oral Tablet Take 1 Tablet by mouth in the morning. 90 Tablet 9 Levothyroxine Sodium 50 MCG Oral Tablet (Levoxyl) TAKE 1 TABLET BY MOUTH EVERY MORNING (AT LEAST 30MIN PRIOR TO BREAKFAST OR OTHER MEDS) 90 Tablet 1 methylPREDNISolone 4 MG Oral Tablet Therapy Pack (Medrol Dosepack) follow package directions 21 Tablet 0 Doxycycline Hyclate 100 MG Oral Capsule Take 1 Capsule by mouth in the morning and 1 Capsule beforebedtime. Do all this for 10 days. Until gone.. 20 Capsule 0 Fluticasone Propionate 50 MCG/ACT Nasal Suspension (Flonase) Administer 2 Sprays into each nostril in the morning. 16 g 5 Albuterol Sulfate HFA 108 (90 Base) MCG/ACT Inhalation Aerosol Solution Inhale 2 Puffs by mouth every 6 hours as needed (cough, chest congestion). 18 g 1 Saccharomyces boulardii 250 MG Oral Capsule (Florastor) Take 1 Capsule by mouth daily. (Patient nottaking: Reported on 11/16/2024) No current facility-administered medications for this visit. [...] performed by Ade Pleitez MD at END[facility]COPY [facility] COLONOSCOPY, DIAGNOSTIC (RECTUM) 04/07/2016 normal/[facility] EGD, FLEXIBLE, DIAGNOSTIC 07/13/2012 ademomatous-repeat EGD in 6 months/[facility] DIAGNOSTIC performed by Ade Pleitez MD at [facility] EGD, FLEXIBLE, DIAGNOSTIC 01/05/2013 UPPER GI ENDOSCOPY DIAGNOSTIC performed by Ade Pleitez MD at [facility]COPY [facility] EGD, FLEXIBLE, DIAGNOSTIC 08/15/2014 normal/done @ [facility] EGD, FLEXIBLE, DIAGNOSTIC 04/07/2016 normal bx/[facility] EGD, FLEXIBLE, DIAGNOSTIC 07/13/2019 normal bx/ESOPHAGOGASTRODUODENOSCOPY (EGD), FLEXIBLE, TRANSORAL, DIAGNOSTIC performed by Rosa Luciano MD at [facility]COPY [facility] EGD, FLEXIBLE, DIAGNOSTIC 11/25/2021 normal / ESOPHAGOGASTRODUODENOSCOPY (EGD), FLEXIBLE, TRANSORAL, DIAGNOSTIC performed by David Nazario MD at [facility]COPY [facility] EGD, FLEXIBLE, DIAGNOSTIC 09/14/2023 normal/ESOPHAGOGASTRODUODENOSCOPY (EGD), FLEXIBLE, TRANSORAL, DIAGNOSTIC performed by David Nazario MD at [facility] EGD, FLEXIBLE, W/BIOPSY 11/19.2009 done mild gastritis, [...] date: 03/20/1944 Quit date: 03/20/1979 Years since quittin.6 Passive exposure: Past Smokeless tobacco: Never Tobacco [...] No mold. Social Needs Financial Resource Strain: Not on file Food Insecurity: No Food Insecurity (05/24/2022) Hunger Vital Sign Worried About Running Out of Food in the Last Year: Never true Ran Out of Food in the Last Year: Never true Transportation Needs: Not on file Social Connections: Not on file Housing Stability: Not on file Review of Systems Constitutional: Positive for activity change and fatigue. Negative for appetite change, chills, diaphoresis, fever and unexpected weight change. HENT: Positive for congestion, hearing loss, postnasal drip and rhinorrhea. Respiratory: Positive for cough, chest tightness and shortness of breath. Cardiovascular: Negative for chest pain, palpitations and leg swelling. Gastrointestinal: Negative for abdominal distention and abdominal pain. Endocrine: Negative. Musculoskeletal: Positive for arthralgias. Neurological: Positive for dizziness, tremors, weakness and light-headedness. Psychiatric/Behavioral: Positive for dysphoric mood and sleep disturbance. Negative for agitation and behavioral problems. The patient is nervous/anxious. Objective BP 100/60 | Pulse 81 | Temp 96.1 °F (35.6 °C) (Infrared ) | Resp 18 | Wt 121 lb 1.6 oz (54.9 kg) | SpO2 98% | BMI 26.21 kg/m² | BSA 1.49 m² Physical Exam Constitutional: General: She is not in acute distress. Appearance: Normal appearance. She is ill-appearing. She is not toxic-appearing or diaphoretic. HENT: Head: Normocephalic and atraumatic. Nose: Congestion and rhinorrhea present. Eyes: Extraocular Movements: Extraocular movements intact. Cardiovascular: Rate and Rhythm: Normal rate and regular rhythm. Pulses: Normal pulses. Heart sounds: Normal heart sounds. Pulmonary: Effort: Pulmonary effort is normal. No respiratory distress. Breath sounds: No stridor. Rhonchi (diffuse) present. No wheezing or rales. Chest: Chest wall: No tenderness. Musculoskeletal: Right lower leg: No edema. Left lower leg: No edema. Neurological: General: No focal deficit present. Mental Status: She is alert and oriented to person, place, and time. Psychiatric: Behavior: Behavior normal. 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 Do all this for 10 days. Until gone.. - Fluticasone Propionate 50 MCG/ACT Nasal Suspension (Flonase); Administer 2 Sprays into each nostril in the morning. - Albuterol Sulfate HFA 108 (90 Base) MCG/ACT Inhalation Aerosol Solution; Inhale 2 Puffs by mouth every 6 hours as needed (cough, chest congestion). Follow Up: Return in about 10 days (around 11/26/2024) for Clinic Visit. | For: Clinic Visit | Check-out note: With me Assessment & Plan Acute Bronchitis Cough since Tuesday with sinus congestion and drainage. No fever or chest pain. Lung exam reveals significant mucus in the airways. Likely secondary to sinus drainage. -Start Doxycycline for 10 days. -Start Prednisone for 6 days. -Continue Montelukast. -Start Flonase nasal spray. -Start Albuterol inhaler. -Order spirometer for lung exercises, instruct to use 30 times per day. Parkinson's Disease Stable, no significant changes noted with cough onset. -Continue current management. Chronic Sinusitis Daily runny nose contributing to bronchitis. -Continue Montelukast. -Start Flonase nasal spray. Pulmonary Embolism (history) No acute issues noted. -Continue current anticoagulation regimen. Semaj Jimenez MD documented in this encounter Nursing Notes * Savi Devlin LPN - 11/16/2024 2:40 PM EST Chief Complaint Patient presents with Cough Pt here today due to having a cough documented in this encounter Plan of Treatment Upcoming Encounters Date Type Department Care Team (Late st Contact Info) Description 11/26/2024 10:00 AM EST Laboratory Laboratory, [facility] [address] [phone] [facility] [address] [id number] 11/26/2024 12:20 PM EST Office Visit [facility] [address]os [address] [phone] Semaj Jimenez MD [address] [place] [address] 12/03/2024 2:30 PM EST Office Visit [facility] [address] [phone] Bets[facility]pkins [facility] [address] [facility] [address] 12/31/2024 11:50 AM EDT Office Visit [facility] [place] [facility] [address] [phone] Vika Castellanos DO [address] [address] 03/25/2025 10:30 AM EDT Imaging Radiology [facility] [address] [place] [phone] 04/02/2025 10:30 AM EDT Office Visit Gastroenterology, [facility] [address] [place] [address] Lacy Tompkins CRNP [address] [place] [address] 04/16/2025 1:00 PM EDT Office Visit Neurology [facility] [address] [facility] [place] [address] Hung Ennis, DO [address] [facility] [place] [address] Health Maintenance Due Date Last Done Comments [...] D LEVEL ONCE IN A LIFETIME-USE SMARTSET# [id number] Completed 07/20/2024, 07/07/2023, 03/25/2022, Additional history exists [...] Bronchitis, not specified as acute or chronic Risk and functional assessment Screening for unspecified condition Chronic rhinitis 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
--- OUTSIDE RECORDS SUMMARY | 2025-02-03 18:38 | External Medical Summary ---
Author Name Unknown Address Unknown Organization K01:LABORATORY [facility] [place] - [facility] [address] Laboratory Report Ordering Provider Test Date Status CUBA ODONNELL 11/26/2024 13:18:30 Final Observation Date Value Abnormality Reference (Units ) Status SYNC LEUKOCYTES IN BLOOD BY AUTOMATED COUNT 11/26/2024 13:18:30 7.77 4.00-10.80 (K/uL) Final Segs 11/26/2024 13:18:30 72.7 40.0-75.0 (%) Final Lymphs % 11/26/2024 13:18:30 18.4 18.0-42.0 (%) Final Monos 11/26/2024 13:18:30 5.4 1.0-11.0 (%) Final Eosinophils 11/26/2024 13:18:30 1.7 0.0-6.0 (%) Final Basos 11/26/2024 13:18:30 0.5 0.0-2.0 (%) Final Immature Granulocyte, Percent 11/26/2024 13:18:30 1.3 0.0-2.0 (%) Final Absolute Segs 11/26/2024 13:18:30 5.65 1.80-7.70 (K/uL) Final Lymphs, absolute 11/26/2024 13:18:30 1.43 1.00-4.80 (K/ul) Final Monos, Abs 11/26/2024 13:18:30 0.42 0.00-1.10 (K/uL) Final Eos, Abs 11/26/2024 13:18:30 0.13 0.00-0.70 (K/uL) Final Basos, Abs 11/26/2024 13:18:30 0.04 0.00-0.20 (K/uL) Final Immature Granulocytes, Number 11/26/2024 13:18:30 0.10 0.00-0.20 (K/uL) Final Performing Location LABORATORY [facility] - [address] [facility] [address]
--- OUTSIDE RECORDS SUMMARY | 2025-02-03 18:38 | External Medical Summary | Summary of Care ---
Author Name Unknown Organization [facility] Address [address] [facility] [address] Phone [phone] Care Team Providers Care Inspector Quality Assurance Name Role Phone Vika Castellanos DO Primary Care Provider [phone] Reason for Visit * Reason Onset Date Comments Medication Question 10/18/2024 Encounter Details Date Type Department Care Team (Late st Contact Info) Description [facility]/18[facility] [address] [place] [phone] Vika Castellanos DO 226 [facility] [place] [address] Medication Question Allergies Active Allergy Reactions Criticality Noted Date Comments Erythromycin 10/07/2021 Drowsy Cyclobenzaprine Hcl 02/19/2014 Worsened rls, made her heart pound Nitroglycerin Low 01/09/2023 Other reaction(s): Headache Famotidine Other (Please comment) 2023 GI upset, nausea Sulfa Antibiotics Edema airway High 08/11/2004 Tolterodine Edema airway High 08/11/2004 Detrol LA documented as of this encounter (statuses as of 10/18/2024) Medications acetaminophen (TYLENOL) 325 MG Tablet Take 1 Tablet by mouth. 6 Active Tylenol PM Extra Strength 500-25 MG Oral Tablet (diphenhydrAMINE-A PAP (sleep)) Take 1 Tablet by mouth daily as needed for Sleep. Active Levothyroxine Sodium 50 MCG Oral Tablet (Levoxyl)Indicatio ns:Hypothyroidism, unspecified type TAKE 1 TABLET BY MOUTH EVERY MORNING (AT LEAST 30 MIN PRIOR TO BREAKFAST OR OTHER MEDS) 90 Tablet 3 4 Active Carbidopa-Levodopa 25-100 MG Oral Tablet (Sinemet) 1 tablet 3x daily 270 Tablet 1 4 Active Montelukast Sodium 10 MG Oral Tablet (Singulair)Indicat ions:Chronic rhinitis,Cough TAKE 1 TAB BY MOUTH DAILY. FOR COUGH 90 Tablet 3 4 Active Klor-Con M10 10 MEQ Oral Tablet Extended Release (potassium chloride ER) TAKE 1 TABLET BY MOUTH EVERY DAY 90 Tablet 3 4 Active Gabapentin 300 MG Oral Capsule (Neurontin)Indicat ions:New onset of headaches after age 50 TAKE 1 CAPSULE BY MOUTH TWICE DAILY 180 Capsule 1 4 Active Escitalopram Oxalate 20 MG Oral Tablet (Lexapro)Indicatio ns:Anxiety state,Adjustment disorder with depressed mood TAKE 1 TABLET BY MOUTH EVERY DAY IN THE MORNING 90 Tablet 1 4 Active Vitamin D 125 MCG (5000 UT) Oral Capsule Take 5,000 Units by mouth daily first thing in the morning. Active Calcium 500 MG Oral Tablet Take 1 Tablet by mouth in the morning. Active Ondansetron HCl 4 MG Oral Tablet (Zofran)Indication s:Nausea TAKE 1 TABLET BY MOUTH EVERY DAY IN THE MORNING AND AT BEDTIME 60 Tablet 3 4 Active Saccharomyces boulardii 250 MG Oral Capsule (Florastor) Take 1 Capsule by mouth daily. Active Apixaban 5 MG Oral Tablet (Eliquis)Indicatio ns: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),terminologist current use of anticoagulant therapy TAKE 1 TABLET BY MOUTH AT 8AM AND THEN TAKE 1 TABLET AT 8PM. 180 Tablet 1 4 Active rOPINIRole HCl 1 MG Oral Tablet (Requip) TAKE 1 TABLET BY MOUTH EVERYDAY AT BEDTIME 90 Tablet 3 4 Active Omeprazole 40 MG Oral Capsule Delayed Release (PriLOSEC)Indicati ons:Gastroesophage al reflux disease without esophagitis TAKE 1 CAPSULE [...] 4 Active Atropine Sulfate 1 % Ophthalmic SolutionIndication s:Sialorrhea 1-2 drop under you tongue every 8 hours as needed for drooling 2 mL 12 4 Active Folic Acid 1 MG Oral Tablet Take 1 Tablet by mouth in the morning. 90 Tablet 9 4 Active LORazepam 0.5 MG Oral Tablet (Ativan)Indication s:Anxiety state Take 1 Tablet by mouth 2 times a day as needed for Anxiety or Insomnia. 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 She accidentally took her morning medications at 2:45 am instead of her normal time of 7:45am. Patient was wondering if she should take any of these medications this morning. Advised patient to not take any additional doses of medications. She should just wait and take her next s cheduled dose which is at 3pm for her sinemet. Patient is understanding of this plan. Thank you, Mallory Mejia, PharmD Clinical Pharmacist [facility] ([facility]) 10/18/24 8:58 AM [phone] * Telephone Encounter - Ni Mcbride PHARM Tech - 10/18/2024 8:54 AM EST Pt calling with medication questions. Warm transferred to [facility]. Thank you, Ni Mcbride, Police Guard Police Guard I [facility] ([facility]) 10/18/2024,8:54 AM documented in this encounter Plan of Treatment Upcoming Encounters Date Type Department Care Team (Late st Contact Info) Description 11/26/2024 10:00 AM EST Laboratory Laboratory, Carol [facility] [address] [place] [phone] Fernanda Medina 226 [place] [phone] 12/03/2024 2:30 PM EST Office Visit Hematology/Oncology [facility] [address] [place] [phone] Betsy Tompkins CRNP [address] [place] [address] 12/31/2024 11:50 AM EDT Office Visit [facility] [phone] Vika Castellanos, DO 226 [facility] [place] [address] 03/25/2025 10:30 AM EDT Imaging Radiology [facility] 132 [facility] [place] [phone] 04/02/2025 10:30 AM EDT Office Visit Gastroenterology, [facility] 132 [facility] [place] [address] Lacy Tompkins CRNP 132 [facility] [place] [address] 04/16/2025 1:00 PM EDT Office Visit Neurology [facility] [place] 200 [facility] [place] [address] Hung Ennis, DO 200 [facility] [place] [address] Health Maintenance Due Date Last Done Comments [...] D LEVEL ONCE IN A LIFETIME-USE SMARTSET# [id number] Completed 07/20/2024, 07/07/2023, 03/25/2022, Additional history exists [...] filedocumented as of this encounter Care Teams Inspector Quality Assurance Relationship Specialty Start Date End Date Vika Castellanos DO PCP - General Family Medicine 05/22/12 documented as of this encounter
--- OUTSIDE RECORDS SUMMARY | 2025-02-03 18:38 | External Medical Summary | Summary of Care ---
Author Name Unknown Organization [facility] Address [address] [place] [address] Phone [phone] Care Team Providers Care Director Commercial Sales Name Role Phone Vika Castellanos DO Primary Care Provider [phone] Reason for Visit * Reason Comments Outpatient Testing Encounter Details Date Type Department Care Team (Late st Contact Info) Description 11/26/2024 10:00 AM EST [facility] 226 [facility] [place] [phone] [place], Laboratory 226 [facility] [place] [phone] Iron deficiency anemia due to chronic blood loss Allergies Active Allergy Reactions Criticality Noted Date [...] DAILY 180 Capsule 1 11/26/19 25 Active Ondansetron HCl 4 MG Oral Tablet (Zofran)Indicati ons:Nausea TAKE 1 TABLET BY MOUTH EVERY DAY IN THE MORNING AND AT BEDTIME 60 Tablet 3 11/26/19 25 Active Atropine Sulfate 1 % Ophthalmic SolutionIndicati ons:Sialorrhea 1-2 drop under you tongue every 8 hours as needed for drooling 2 mL 12 11/26/19 25 Active Apixaban 5 MG Oral Tablet (Eliquis)Indicat ions: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),terminal operator current use of anticoagulant therapy TAKE [...] fluctuating manifestations 01/11/2024 Senile osteoporosis 07/07/2023 terminal operator current use of anticoagulant therapy [...] EST Office Visit Hematology/Oncology [facility] 200 [facility] [place] [phone] Betsy Tompkins CRNP [address] [place] [address] 12/31/2024 11:50 AM EDT Office Visit [facility] 226 [facility] [phone] Vika Castellanos DO 226 [facility] [place] [address] 03/25/2025 10:30 AM EDT Imaging Radiology [facility] 132 [facility] [place] [phone] 04/02/2025 10:30 AM EDT Office Visit Gastroenterology, [facility] 132 [facility] [place] [address] Lacy Tompkins CRNP [address] [place] [address] 04/16/2025 1:00 PM EDT Office Visit Neurology [facility] [address] [place] [address] Hung Ennis, [address] [place] [address] Pending Results Name Type Priority Associated Diagnoses Date /Time CBC WITH WBC DIFFERENTIAL Lab STAT Iron deficiency anemia due to chronic blood loss 11/26/2024 1:18 PM EST IRON SCREEN, INCLUDING TIBC Lab STAT Iron deficiency anemia due to chronic blood loss 11/26/2024 1:18 PM EST FERRITIN Lab STAT Iron deficiency anemia due to chronic blood loss 11/26/2024 1:18 PM EST CBC Lab STAT Iron deficiency anemia due to chronic blood loss 11/26/2024 1:18 PM EST DIFFERENTIAL, AUTOMATED Lab STAT Iron deficiency anemia due to chronic blood loss 11/26/2024 1:18 PM EST Health Maintenance Due Date Last Done Comments [...] D LEVEL ONCE IN A LIFETIME-USE SMARTSET# [id number] Completed 07/20/2024, 07/07/2023, 03/25/2022, Additional history exists [...] Iron deficiency anemia due to chronic blood loss Iron deficiency anemia secondary to blood loss (chronic) documented in this encounter Care Teams Director Commercial Sales Relationship Specialty Start Date End Date Vika Castellanos DO [address] [place] [phone] PCP - General Family Medicine 05/22/12 documented as of this encounter
--- OUTSIDE RECORDS SUMMARY | 2025-02-03 18:38 | External Medical Summary | Summary of Care ---
Author Name Unknown Organization [facility] Address [address] [facility] [address] Phone [phone] Care Team Providers Care Answerer Name Role Phone Art Castellanos DO Primary Care Provider [phone] Reason for Visit * Reason Onset Date Comments Medication Refill 10/25/2024 Encounter Details Date Type Department Care Team (Late st Contact Info) Description 10/[facility] [facility] [address] [place] [phone] Art Castellanos [...] as of this encounter (statuses as of 10/26/2024) Medications acetaminophen (TYLENOL) 325 MG Tablet Take [...] MG Oral Tablet (Eliquis)Indicati ons: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),MCFP current use of anticoagulant [...] Anxiety or Insomnia. 30 Tablet 5 Active LORazepam 0.5 MG Oral Tablet (Ativan)Indicatio ns:Anxiety state Take 1 Tablet by mouth 2 times a day as needed for Anxiety or Insomnia. 30 Tablet 4 025 Discontin ued(Refil l) documented as of this encounter (statuses as of 10/26/2024) Active Problems Problem Noted Date Diagnosed Date [...] as of this encounter (statuses as of 10/26/2024) Resolved Problems Problem Noted Date Diagnosed Date [...] as of this encounter (statuses as of 10/26/2024) Immunizations Name Administration Dates Next Due COVID-19 [...] Telephone Encounter - Art Castellanos DO - 10/26/2024 9:53 AM ESTSigned Prescriptions: Disp Refills LORazepam 0.5 MG Oral Tablet (Ativan) 30 Tab*0 Sig: Take 1 Tablet by mouth 2 times a day as needed for Anxiety or Insomnia. Authorizing Provider: ART CASTELLANOS * Telephone Encounter - Jason Hickman RP - 10/26/2024 8:42 AM ESTPending Prescriptions: Disp Refills LORazepam 0.5 MG Oral Tablet (Ativan) 30 Tab*0 Sig: Take 1 Tablet by mouth 2 times a day as needed for Anxiety or Insomnia. * Telephone Encounter - Jason Hickman [facility] - 10/26/2024 8:42 AM EST I have reviewed the patient’s controlled substance dispensing history in the Prescription Drug Monitoring Program in compliance with the [facility] regulations before prescribing a controlled substance. PDMP checked on 10/26/2024. Pending Prescriptions: Disp Refills LORazepam 0.5 MG Oral Tablet (Ativan) 30 Tab*0 Sig: Take 1 Tablet by mouth 2 times a day as needed for Anxiety or Insomnia. Last Visit: Visit date not found (in office), Visit date not found (telemedicine) Next Visit: 12/31/2024 Date medication was last filled: 09-28-24 Date medication is due for refill: 10-13-24 [id number] [address] [place] [address] Is this request for a controlled substance? and Urine Drug Screen Not completed Toxicology results: No results found. However, due to the size of the patient record, not all encounters were searched.Please check Results Review for a complete set of results. Please approve if appropriate. Taiwo Giraldo.Ph. Clinical Pharmacist [facility] ([facility]) [address] [place] [address], [address]: [phone] 10/26/2024,8:42 AM * Telephone Encounter - Idalmis Segal PHARM Tech - 10/25/2024 2:22 PM EST Did you pend patient's preferred pharmacy and medication before forwarding?yes Pharmacy: [id number] [address] [place] [address] Pending Prescriptions: Disp Refills LORazepam 0.5 MG Oral Tablet (Ativan) 30 Tab*0 Sig: Take 1 Tablet by mouth 2 times a day as needed for Anxiety or Insomnia. Last Visit: Visit date not found (in office), Visit date not found (telemedicine) Next Visit: 12/31/2024 If no future appointments scheduled, and last appointment is greater than a year ago, please schedule patient for a follow-up appointment Last date the medication was ordered: 09/28/2024 Is this request for a controlled substance?Yes, What was the last refill date 09/28/2024 w/ quantity 30 and dosage 0.5 and [...] Laboratory Laboratory, Carol Richter [address] [place] [phone] Carol Laboratory 226 [place] [address] 12/03/2024 2:30 PM EST Office Visit Hematology/Oncology [facility] [place] 200 [facility] [phone] Betsy Tompkins CRNP [address] [place], [place] [address] [address] 12/31/2024 11:50 AM EDT Office [facility] 226 [facility] [place] [phone] Art Castellanos, DO 226 [facility] [place] [address] 03/25/2025 10:30 AM EDT Imaging Radiology [facility] 132 [facility] [phone] 04/02/2025 10:30 AM EDT Office Visit Gastroenterology, [facility] 132 [facility] [place] [address] Lacy Tompkins CRNP [facility] [place] [address] 04/16/2025 1:00 PM EDT Office Visit Neurology [facility] 200 [facility] [place], [place] [address] Hung Ennis, 200 [facility] [place], [place] [address] Health Maintenance Due Date Last Done Comments [...] D LEVEL ONCE IN A LIFETIME-USE SMARTSET# [id number] Completed 07/20/2024, 07/07/2023, 03/25/2022, Additional history exists [...] unspecified documented in this encounter Care Teams Answerer Relationship Specialty Start Date End Date Art Castellanos DO PCP - General Family Medicine 05/22/12 documented as of this encounter
--- OUTSIDE RECORDS SUMMARY | 2025-02-03 18:38 | External Medical Summary | Summary of Care ---
Author Name Unknown Organization [facility] Address [address] [place] [address] Phone [phone] Care Team Providers Care Nanny Babysitter Name Role Phone Art Castellanos DO Primary Care Provider [phone] Reason for Visit * Reason Comments eRx-Medication Refill Encounter Details Date Type Department Care Team (Late st Contact Info) Description 11/15/[address] [facility] [place] [facility] [address] [place] [phone] Art Castellanos DO 226 [facility] [place] [address] Hypothyroidism, unspecified type Allergies Active Allergy Reactions Criticality Noted Date Comments Erythromycin 10/07/2021 Drowsy Cyclobenzaprine Hcl 02/19/2014 Worsened rls, made her heart pound Nitroglycerin Low 01/09/2023 Other reaction(s): Headache Famotidine Other (Please comment) 2023 GI upset, nausea Sulfa Antibiotics Edema airway High 08/11/2004 Tolterodine Edema airway High 08/11/2004 Detrol LA documented as of this encounter (statuses as of 11/15/2024) Medications acetaminophen (TYLENOL) 325 MG Tablet Take [...] MG Oral Tablet (Eliquis)Indicati ons: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),exterminator helper termite current use of anticoagulant therapy TAKE 1 [...] DAY 60 Tablet 1 10/11/20 24 Active LORazepam 0.5 MG Oral Tablet (Ativan)Indicatio ns:Anxiety state Take 1 Tablet by mouth 2 times a day as needed for Anxiety or Insomnia. 30 Tablet 10/26/19 25 Active Folic Acid 1 MG Oral Tablet Take 1 Tablet by mouth in the morning. 90 Tablet 9 11/08/19 25 Active Levothyroxine Sodium 50 MCG Oral Tablet (Levoxyl)Indicati ons:Hypothyroidis m, unspecified type TAKE 1 TABLET BY MOUTH EVERY MORNING (AT LEAST 30 MIN PRIOR TO BREAKFAST OR OTHER MEDS) 90 Tablet 1 11/15/19 25 Active Levothyroxine Sodium 50 MCG Oral Tablet (Levoxyl)Indicati ons:Hypothyroidis m, unspecified type TAKE 1 TABLET BY MOUTH EVERY MORNING (AT LEAST 30 MIN PRIOR TO BREAKFAST OR OTHER MEDS) 90 Tablet 3 11/22/19 24 025 Discontinued documented as of this encounter (statuses as of 11/15/2024) Active Problems Problem Noted Date Diagnosed Date [...] as of this encounter (statuses as of 11/15/2024) Resolved Problems Problem Noted Date Diagnosed Date [...] as of this encounter (statuses as of 11/15/2024) Immunizations Name Administration Dates Next Due COVID-19 [...] encounter Miscellaneous Notes * Telephone Encounter - Jimmie Lara RPh - 11/15/2024 3:13 PM ESTSigned Prescriptions: Disp Refills Levothyroxine Sodium 50 MCG Oral Tablet (L*90 Tab*1 Sig: TAKE 1 TABLET BY MOUTH EVERY MORNING (AT LEAST 30 MIN PRIOR TO BREAKFAST OR OTHER MEDS)Authorizing Provider: ART CASTELLANOS User: JIMMIE LARA documented in this encounter Plan of Treatment Upcoming Encounters Date Type Department Care Team (Late st Contact Info) Description 11/16/2024 2:40 PM EST Office Visit Family Practice, [place] [phone] Semaj Jimenez MD [address] [place] [address] 11/26/2024 10:00 AM EST Laboratory Laboratory, [place] [phone] Carol [facility] 226 [facility] [place] [address] 12/03/2024 2:30 PM EST Office Visit Hematology/Oncology [facility] [address] [place] [phone] Betsy Tompkins CRNP [address] [place] [address] 12/31/2024 11:50 AM EDT Office Visit Family [facility] [place] [facility] [address] [place] [phone] Art Castellanos DO 226 [facility] [place] [address] 03/25/2025 10:30 AM EDT Imaging Radiology [facility] 132 [facility] [place] [phone] 04/02/2025 10:30 AM EDT Office Visit Gastroenterology, [facility] [address] [place] [address] Lacy Tompkins CRNP 132 [facility] [place] [address] 04/16/2025 1:00 PM EDT Office Visit Neurology [facility] 200 [facility] [place], [place] [address] Hung Ennis, [address] [place], [place] [address] Health Maintenance Due Date Last Done Comments [...] D LEVEL ONCE IN A LIFETIME-USE SMARTSET# [id number] Completed 07/20/2024, 07/07/2023, 03/25/2022, Additional history exists [...] as of this encounter Visit Diagnoses Diagnosis Hypothyroidism, unspecified type documented in this encounter Care Teams Nanny Babysitter Relationship Specialty Start Date End Date Art Castellanos DO PCP - General Family Medicine 05/22/12 documented as of this encounter
--- OUTSIDE RECORDS SUMMARY | 2025-02-03 18:38 | External Medical Summary ---
Author Name Unknown Address Unknown Organization K01:[facility] [address] [facility] [address] Laboratory Report Ordering Provider Test Date Status CUBA ODONNELL 11/26/2024 13:18:30 Final Observation Date Value Abnormality Reference (Units ) Status Iron 11/26/2024 13:18:30 66 33-151 (ug /dL) Final Iron-binding capacity 11/26/2024 13:18:30 251 250-425 (ug/dL) Final Transferrin Sat % 11/26/2024 13:18:30 26 15 -55 (%) Final Performing Location [facility]ORY [facility] - [address] [facility] [address]
--- OUTSIDE RECORDS SUMMARY | 2025-02-03 18:38 | External Medical Summary ---
Author Name Unknown Address Unknown Organization K01:[facility] [place] [address] [place] [address] Laboratory Report Ordering Provider Test Date Status CUBA ODONNELL 11/26/2024 13:18:30 Final Observation Date Value Abnormality Reference (Units ) Status Ferritin 11/26/2024 13:18:30 167 Above high normal 13 -150 (ng/mL) Final Postmenopausal women have hi gher ferritin levels than pre-menopausal women. The above reference interval is based on pre-menopausal women. Performing Location LABORATORY [facility] - [address] [place] [address]
--- OUTSIDE RECORDS SUMMARY | 2025-02-03 18:39 | External Medical Summary | Summary of Care ---
Author Name Unknown Organization [facility] Address [address] [place] [address] Phone [phone] Care Team Providers Care Hammer Operator Name Role Phone Vika Castellanos DO Primary Care Provider [phone] Reason for Visit * Reason Comments NEW PATIENT Treatment * Evaluate & Treat - Unlimited Visits (Within 10 days (routine)) - Authorized Specialty Diagnoses / Procedures Referred By Contac t Referred To Contact Hematology/Oncology / Hematology Oncology Diagnoses Iron deficiency anemia, unspecified iron deficiency anemia type Vika Castellanos DO [address] [facility] [place] [address] Phone: tel: fax: Referral ID Status Reason Start Date Expiration Date Visits Requested Visits Authorized [id number] Authorized Specialty Services Required 06/22/[phone] Encounter Details Date Type Department Care Team (Late st Contact Info) Description 08/31/2024 1:00 PM EST Office Visit Hematology/Oncology [facility] [place] [address] [facility] [place] [address] Betsy Tompkins CRNP 400 [facility] [place] [address] Iron deficiency anemia due to chronic blood loss* Allergies Active Allergy Reactions Criticality Noted Date Comments Erythromycin 10/07/2021 Drowsy Cyclobenzaprine Hcl 02/19/2014 Worsened rls, made her heart pound Nitroglycerin Low 01/09/2023 Other reaction(s): Headache Famotidine Other (Please comment) 2023 GI upset, nausea Sulfa Antibiotics Edema airway High 08/11/2004 Tolterodine Edema airway High 08/11/2004 Detrol LA documented as of this encounter (statuses as of 09/13/2024) Medications acetaminophen (TYLENOL) 325 MG Tablet Take [...] MG Oral Tablet (Eliquis)Indicati ons: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),intermission coordinator current use of [...] HCl 2 MG Oral Tablet (Zanaflex) 1 tablet twice daily 60 Tablet 1 4 Active Folic Acid 1 MG Oral Tablet Take 1 Tablet by mouth in the morning. 90 Tablet 9 4 024 Discontin ued(Refil l) LORazepam 0.5 MG Oral Tablet (Ativan)Indicatio ns:Anxiety state Take 1 Tablet by mouth 2 times a day as needed for Anxiety or Insomnia. 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 01/11/2024 Senile osteoporosis 07/07/2023 intermission coordinator current use of anticoagulant therapy 0 06/30/2022 [...] as of this encounter (statuses as of 09/13/2024) Resolved Problems Problem Noted Date Diagnosed Date [...] as of this encounter (statuses as of 09/13/2024) Immunizations Name Administration Dates Next Due COVID-19 [...] Sign Reading Time Taken Comments Blood Pressure 90/59 08/31/2024 12:51 PM EST Pulse 83 08/31/2024 12:51 PM EST Temperature 36.7 °C (98.1 °F) 08/31/2024 12:[address] Respiratory Rate - - Oxygen Saturation 91% 08/31/2024 12:51 PM EST Inhaled Oxygen Concentration - - Weight 54.4 kg (120 lb) 08/31/2024 12:51 PM EST Height 144.8 cm (4' 9") 08/31/2024 12:51 PM EST Body Mass Index 25.97 08/31/2024 12:51 PM EST documented in this encounter Progress Notes * Betsy Tompkins CRNP - 08/31/2024 1:02 PM EST Hematology/Oncology Outpatient Clinic note Daya Armendariz [address] [facility] [place] [address] Name: Sera Gutiérrez Date: 08/31/2024 REFERRED BY: Dr. Vika Castellanos CHIEF COMPLAINT: Sera Gutiérrez is a 84 year old female here today for new consultation for iron deficiency anemia. HISTORY OF PRESENT ILLNESS: 84 year old female with history of Parkinsons Disease, anxiety, depression, PE on Eliquis, Osteoporosis, and GERD. Admitted to [facility] 06/17 to 06/20 for atypical chest pain, [...] anticoagulation with Eliquis. No renal insufficiency noted. Patient's past medical history, social history, and family history were reviewed and updated. Past Medical History: Diagnosis Date Benign neoplasm [...] date: 03/20/1944 Quit date: 03/20/1979 Years since quittin.4 Smokeless tobacco: Never Tobacco comments: quit in [...] Housing Stability: Not on file Review of patient's allergies [...] by mouth daily as needed for Sleep. Levothyroxine Sodium 50 MCG Oral Tablet (Levoxyl) TAKE 1 TABLET BY MOUTH EVERY MORNING (AT LEAST 30MIN PRIOR TO BREAKFAST OR OTHER MEDS) 90 Tablet 3 Carbidopa-Levodopa 25-100 MG Oral Tablet (Sinemet) 1 [...] MORNING AND AT BEDTIME 60 Tablet 3 Saccharomyces boulardii 250 MG Oral Capsule (Florastor) Take 1 Capsule by mouth daily. Apixaban 5 MG Oral Tablet (Eliquis) TAKE [...] DAY IN THE MORNING 90 Tablet 1 Folic Acid 1 MG Oral Tablet Take 1 Tablet by mouth in the morning. 90 Tablet 9 Ferrous Sulfate 325 (65 Fe) MG Oral Tablet Delayed Release Take 1 Tablet by mouth in the morning. 90 Tablet 9 LORazepam 0.5 MG Oral Tablet (Ativan) Take 1 Tablet by mouth 2 times a day as needed for Anxiety orInsomnia. 30 Tablet 0 Atropine Sulfate 1 % Ophthalmic Solution 1-2 drop under you tongue every 8 hours as needed for drooling 2 mL 12 tiZANidine HCl 2 MG Oral Tablet (Zanaflex) 1 tablet twice daily 60 Tablet 1 No current facility-administered medications for this visit. REVIEW OF SYSTEMS: SEE HPI - otherwise negative OBJECTIVE: Filed Vitals: 08/31/24 1251 BP: 90/59 Pulse: 83 Temp: 36.7 °C (98.1 °F) TempSrc: Tympanic SpO2: 91% Weight: 54.4 kg (120 lb) Height: 1.448 m (4' 9") Wt Readings from Last 5 Encounters: 08/31/24 54.4 kg (120 lb) 08/31/24 54.4 kg (120 lb) 08/09/24 53.9 kg (118 lb 12.8 oz) 07/10/24 53.5 kg (118 lb) 06/22/24 53.8 kg (118 lb 11.2 oz) PHYSICAL EXAM: Constitutional: no acute distress Neuro: alert, oriented to person, place, and time HEENT: normal: normocephalic, atraumatic; neck with no masses or tenderness; no cervical/supraclavicular lymphadenopathy CV: normal rate and rhythm, no murmur Chest: normal respiratory effort, lungs clear to auscultation Extremities: +1 BLE edema LABS: Results for orders placed or performed in visit on 07/20/24 MAGNESIUM Result Value Ref Range Magnesium 1.7 1.5 - 2.6 mg/dL CBC Result Value Ref Range WBC 4.64 4.00 - 10.80 K/uL RBC 3.89 3.85 - 5.15 M/uL HGB 11.4 (L) 12.0 - 15.3 g/dL HCT 38.3 36.0 - 45.2 % MCV 98.5 81.5 - 97.5 fL MCH 29.3 27.0 - 34.0 pg MCHC 29.8 32.0 - 36.0 g/dL RDW 19.5 11.5 - 15.5 % PLT 255 140 - 400 K/uL MPV 9.9 6.6 - 11.1 fL nRBCs 0 <=0 /100 WBCs IRON SCREEN, INCLUDING TIBC Result Value Ref Range Iron 93 33 - 151 ug/dL Iron Binding Capacity 308 250 - 425 ug/dL Transferrin Saturation Percent 30 15 - 55 % CREATININE Result Value Ref Range CREATININE 0.8 0.5 - 1.0 mg/dL EGFR 68 >=60 mL/min 25-HYDROXY VITAMIN D Result Value Ref Range 25-Hydroxy Vitamin D 56 >19 ng/mL CALCIUM Result Value Ref Range CALCIUM 9.1 8.4 - 10.2 mg/dL PTH Result Value Ref Range PTH 27 15 - 65 pg/mL *Note: Due to a large number of results and/or encounters for the requested time period, some results have not been displayed. A complete set of results can be found in Results Review. IMPRESSION: Iron deficiency anemia: 84 year old female with history of Parkinsons Disease, anxiety, depression, PE on Eliquis, Osteoporosis, and GERD. Admitted to [facility] 06/17 to 06/20 for atypical chest pain, [...] not take anything for this. Last Colonoscopy 2016 significant for angiectasias in ascending colon. Follows with GI. History of colitis. Next appointment 09/26/24. Denies any melena or hematochezia. Does have a history of gastroparesis. History of recurrent pulmonary emboli. First was provoked in the setting of COVID 19. Was on Eliquis for one year. Second in 2021 was seemingly unprovoked. Now on lifelong anticoagulation with Eliquis. No renal insufficiency noted. PLAN: Will update lab work today including CBCd, iron screen, ferritin, vitamin b12 and folic acid. Further recommendations based on results. Recommend continuing folic acid 1 mg daily and ferrous sulfate 325 mg daily at this time as well tolerated. Continue to follow with GI. Agree with recommendations for lifelong anticoagulation. Could consider decreasing to prophylactic dosing. RTC in three months with provider with cbc/diff, iron screen and ferritin MINESH Castellon documented in this encounter Nursing Notes * Jaimie Buchanan MED ASSIST - 08/31/2024 12:53 PM EST Patient identifed by name and birthdate Do you have any concerns about pain management for today's visit? Yes. Patient instructed to discuss pain concerns with provider during the visit today Living Will or Advance Directive for Health Care as noted on the problem list. [facility] is a way you can talk to your provider on line through e-mail. Would you like to sign up? I can activate it for you? ALREADY ACTIVE Filed Vitals: 08/31/24 1251 BP: 90/59 Pulse: 83 Temp: 36.7 °C (98.1 °F) TempSrc: Tympanic SpO2: 91% Weight: 54.4 kg (120 lb) Height: 1.448 m (4' 9") Patient was instructed to not get up [...] Care Team (Late st Contact Info) Description 09/26/2024 11:30 AM EST Office Visit Gastroenterology, [facility] [address] [place] [address] Lacy Tompkins CRNP [address] [place] [address] 11/26/2024 10:00 AM EST Laboratory Laboratory, Carol Bullock [address] [place] [phone] Fernanda Medina [address] [place] [address] [place] [address] 12/03/2024 2:30 PM EST Office Visit Hematology/Oncology [facility] [address] [place] [address] Betsy Tompkins CRNP [address] [place] [address] 12/31/2024 11:50 AM EDT Office Visit [facility] 226 [facility] [place] [id number] Vika Castellanos DO 226 [facility] [place] [address] 03/25/2025 10:30 AM EDT Imaging Radiology, [facility] [address] [facility] [place] [address] 04/16/2025 1:00 PM EDT Office Visit Neurology [facility] 200 [facility] [place] [address] Hung Ennis, DO 200 [facility] [place] [address] Scheduled Orders Name Type Priority Associated Diagnoses Orde r Schedule CBC WITH WBC DIFFERENTIAL Lab STAT Iron deficiency anemia due to chronic blood loss Every 3 Months for 4 Occurrences starting 09/13/2024 until 09/30/2025 IRON SCREEN, INCLUDING TIBC Lab STAT Iron deficiency anemia due to chronic blood loss Every 3 Months for 4 Occurrences starting 09/13/2024 until 09/30/2025 FERRITIN Lab STAT Iron deficiency anemia due to chronic blood loss Every 3 Months for 4 Occurrences starting 09/13/2024 until 09/30/2025 Health Maintenance Due Date Last Done Comments [...] Pneumococcal Vaccine: 65+ Years Completed 10/30/2015, 06/14/2007 Influenza Vaccine (FLU shot) Completed 03/2024, 07/07/2023, 06/30/2022, Additional history exists VITAMIN D LEVEL ONCE IN A LIFETIME-USE SMARTSET# [id number] Completed 07/20/2024, 07/07/2023, 03/25/2022, Additional history exists [...] Not on filedocumented as of this encounter Results * FOLIC ACID (08/31/2024 2:04 PM EST) Folic Acid >20.0 >4.5 ng/mL 09/01/2024 2:18 AM EST LABORATORY [facility] Blood Venous blood specimen / Unknown Venipuncture / Unknown 08/31/2024 2:04 PM EST 08/31/2024 2:04 PM EST us Betsy EDGE LAB BLOOD ORDERABLES Fi nal Result LABORATORY [facility] [address] [place] [address] * VITAMIN B12 (08/31/2024 2:04 PM EST) Vitamin B12 457 232 - 1,245 pg/mL 09/01/2024 2:18 AM EST LABORATORY [facility] Blood Venous blood specimen / Unknown Venipuncture / Unknown 08/31/2024 2:04 PM EST 08/31/2024 2:04 PM EST Betsy EDGE LAB BLOOD ORDERABLES Fi nal Result Performing Organization Address City/[facility] Co de Phone Number LABORATORY [facility] [address] [place] [address] * FERRITIN (08/31/2024 2:04 PM EST) Ferritin 78 13 - 150 ng/mL 09/01/2024 2:18 AM EST LABORATORY [facility] Comment:Postmenopausal women have higher ferritin levels than pre-menopausal women. The above reference interval is based on pre-menopausal women. Blood Venous blood specimen / Unknown Venipuncture / Unknown 08/31/2024 2:04 PM EST 08/31/2024 2:04 PM EST Betsy EDGE LAB BLOOD ORDERABLES Fi nal Result Performing Organization Address [facility] Phone Number LABORATORY [facility] [address] [place] [address] * IRON SCREEN, INCLUDING TIBC (08/31/2024 2:04 PM EST) Iron 100 33 - 151 ug/dL 09/01/2024 2:18 AM EST LABORATORY C Iron Binding Capacity 321 250 - 425 ug/dL 09/01/2024 2:18 AM EST [facility] Transferrin Saturation Percent 31 15 - 55 % 09/01/2024 2:18 AM EST LABORATORY [facility] Blood Venous blood specimen / Unknown Venipuncture / Unknown 08/31/2024 2:04 PM EST 08/31/2024 2:04 PM EST Betsy EDGE LAB BLOOD ORDERABLES Fi nal Result Performing Organization Address City/[facility] Co de Phone Number LABORATORY [facility] [address] [place] [address] documented in this encounter Visit Diagnoses Diagnosis Iron deficiency anemia due to chronic blood loss- Primary Iron 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
--- OUTSIDE RECORDS SUMMARY | 2025-02-03 18:39 | External Medical Summary | Summary of Care ---
Author Name Unknown Organization [facility] Address [address] [place] [address] Phone [phone] Care Team Providers Care Spinning Mule Operator Name Role Phone Vika Castellanos DO Primary Care Provider [phone] Encounter Details Date Type Department Care Team (Late st Contact Info) Description 06/05/2024 Telephone [facility] [address] [place] [address] Vika Castellanos DO [address] [place] [address] Allergies Active Allergy Reactions Criticality Noted Date Comments Erythromycin 10/07/2021 Drowsy Cyclobenzaprine Hcl 02/19/2014 Worsened rls, made her heart pound Nitroglycerin Low 01/09/2023 Other reaction(s): Headache Famotidine Other (Please comment) 2023 GI upset, nausea Sulfa Antibiotics Edema airway High 08/11/2004 Tolterodine Edema airway High 08/11/2004 Detrol LA documented as of this encounter (statuses as of 09/04/2024) Medications acetaminophen (TYLENOL) 325 MG Tablet Take [...] OTHER MEDS) 90 Tablet 3 4 Active Carbidopa-Levodo pa 25-100 MG Oral Tablet [...] 4 Active Gabapentin 300 MG Oral Capsule (Neurontin)Indic [...] as of this encounter (statuses as of 09/04/2024) Active Problems Problem Noted Date Diagnosed Date Long-term current use of benzodiazepine 05/28/20 24 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 [address] 11/26/2024 10:00 AM EST [address], [address] [address] [facility] [address] [place] [address] 12/03/2024 2:30 PM EST Office Visit Hematology/Oncology [facility] [address] Betsy Tompkins CRNP [address] [place] [address] 12/31/2024 11:50 AM EDT Office Visit Family Practice, [facility] 226 [facility] [place] [address] Vika Castellanos, [address] [place] [address] 03/25/2025 10:30 AM EDT Imaging Radiology, [facility] [address] [facility] [place] [address] 04/16/2025 1:00 PM EDT Office Visit Neurology [facility] [address] [place] [address] Hung Ennis, DO 200 [facility] [place] [address] Health Maintenance Due Date Last Done Comments [...] D LEVEL ONCE IN A LIFETIME-USE SMARTSET# [id number] Completed 07/20/2024, 07/07/2023, 03/25/2022, Additional history exists [...] filedocumented as of this encounter Care Teams Spinning Mule Operator Relationship Specialty Start Date End Date Vika Castellanos, DO [address] [place] [address] PCP - General Family Medicine 05/22/12 documented as of this encounter
--- OUTSIDE RECORDS SUMMARY | 2025-02-03 18:39 | External Medical Summary ---
Author Name Unknown Address Unknown Organization K09:[facility] [place] [address] Laboratory Report Ordering Provider Test Date Status CUBA ODONNELL 08/31/2024 14:04:51 Final Observation Date Value Abnormality Reference (Units ) Status SYNC LEUKOCYTES IN BLOOD BY AUTOMATED COUNT 08/31/2024 14:04:51 6.72 4.00-10.80 (K/uL) Final Segs 08/31/2024 14:04:51 61.2 40.0-75.0 (%) Final Lymphs % 08/31/2024 14:04:51 31.4 18.0-42.0 (%) Final Monos 08/31/2024 14:04:51 6.1 1.0-11.0 (%) Final Eosinophils 08/31/2024 14:04:51 1.0 0.0-6.0 (%) Final Basos 08/31/2024 14:04:51 0.3 0.0-2.0 (%) Final Absolute Segs 08/31/2024 14:04:51 4.11 1.80-7.70 (K/uL) Final Lymphs, absolute 08/31/2024 14:04:51 2.11 1.00-4.80 (K/ul) Final Monos, Abs 08/31/2024 14:04:51 0.41 0.00-1.10 (K/uL) Final Eos, Abs 08/31/2024 14:04:51 0.07 0.00-0.70 (K/uL) Final Basos, Abs 08/31/2024 14:04:51 0.02 0.00-0.20 (K/uL) Final Performing Location [facility] [place] [address]
--- OUTSIDE RECORDS SUMMARY | 2025-02-03 18:39 | External Medical Summary | Summary of Care ---
Author Name Unknown Organization [facility] Address [address] [place] [address] Phone [phone] Care Team Providers Care Broadcast News Producer Name Role Phone Vika Castellanos DO Primary Care Provider [phone] Reason for Visit * Reason Comments eRx-Medication Refill Encounter Details Date Type Department Care Team (Late st Contact Info) Description 10/10/2024 Refill Neurology [facility] [place] [address] [place] [address] Hung Ennis DO [address] [place] [address] Allergies Active Allergy Reactions Criticality Noted Date Comments Erythromycin 10/07/2021 Drowsy Cyclobenzaprine Hcl 02/19/2014 Worsened rls, made her heart pound Nitroglycerin Low 01/09/2023 Other reaction(s): Headache Famotidine Other (Please comment) 2023 GI upset, nausea Sulfa Antibiotics Edema airway High 08/11/2004 Tolterodine Edema airway High 08/11/2004 Detrol LA documented as of this encounter (statuses as of 10/11/2024) Medications acetaminophen (TYLENOL) 325 MG Tablet Take [...] OTHER MEDS) 90 Tablet 3 11/22/19 24 Active Carbidopa-Levodop a 25-100 MG Oral Tablet [...] CAPSULE BY MOUTH TWICE DAILY 180 Capsule 04/12/20 24 Active Escitalopram Oxalate 20 MG [...] MG Oral Tablet (Eliquis)Indicati ons: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),watermelon inspector current use of anticoagulant therapy TAKE 1 [...] drooling 2 mL 12 08/31/20 24 Active Folic Acid 1 MG Oral Tablet Take 1 Tablet by mouth in the morning. 90 Tablet 9 09/12/20 24 Active LORazepam 0.5 MG Oral Tablet (Ativan)Indicatio ns:Anxiety state Take 1 Tablet by mouth 2 times a day as needed for Anxiety or Insomnia. 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 01/11/2024 Senile osteoporosis 07/07/2023 watermelon inspector current use of anticoagulant therapy 0 06/30/2022 [...] as of this encounter (statuses as of 10/11/2024) Resolved Problems Problem Noted Date Diagnosed Date [...] as of this encounter (statuses as of 10/11/2024) Immunizations Name Administration Dates Next Due COVID-19 [...] Telephone Encounter - Hung Ennis DO - 10/11/2024 10:33 AM EST Signed Prescriptions: Disp Refills tiZANidine HCl 2 MG Oral Tablet (Zanaflex) 60 Tab*1 Si TABLET TWICE A DAY Authorizing Provider: HUNG ENNIS * Telephone Encounter - Irene Tapia RN - 10/11/2024 9:57 AM ESTPending Prescriptions: Disp Refills tiZANidine HCl 2 MG Oral Tablet [Pharmacy *60 Tab*1 Si TABLET TWICE A DAY * Telephone Encounter - Mya London - 10/10/2024 4:44 AM ESTPending Prescriptions: Disp Refills tiZANidine HCl 2 MG Oral Tablet [Pharmacy *60 Tab*1 Si TABLET TWICE A DAY * Telephone Encounter - Mya London julia - 10/10/2024 4:42 AM EST Did you pend patient's preferred pharmacy and medication before forwarding?yes Pharmacy: [id number] [address] [facility] Pending Prescriptions: Disp Refills tiZANidine HCl 2 MG Oral Tablet (Zanaflex*60 Tab*1 Si TABLET TWICE A DAY Last Visit: 08/31/2024 (in office), 02/15/2020 (telemedicine) Next Visit: 04/16/2025 If no future appointments scheduled, and last appointment is greater than a year ago, please schedule patient for a follow-up appointment Last date the medication was ordered: 08/31/2024 Is this request for a controlled substance?No [...] 11/26/2024 10:00 AM EST Laboratory Laboratory, [place] [phone] [facility] [place] [address] 12/03/2024 2:30 PM EST Office Visit Hematology/Oncology [facility] 200 [facility] [place] [address] Betsy Tompkins CRNP [address] [place] [address] 12/31/2024 11:50 AM EDT Office Visit Family Practice, Carol [facility]os [address] [place] [phone] Vika Castellanos DO [address] [place] [address] 03/25/2025 10:30 AM EDT Imaging Radiology [facility] [address] [place] [phone] 04/02/2025 10:30 AM EDT Office Visit Gastroenterology, [facility] [address] [place] [address] Lacy Tompkins CRNP [address] [place] [address] 04/16/2025 1:00 PM EDT Office Visit Neurology [facility] 200 [facility] [place] [address] Hung Ennis, 200 [facility] [place] [address] Health Maintenance Due Date Last Done Comments Zoster Vaccines (2 of 3) 09/13/2013 07/19/2013 Adult Wellness Visit 10/30/2016 10/30/2015 Depression Monitoring 05/24/2023 05/24/2022 COVID-19 Vaccine (3 - season) 2024 03/18/2021, 02/18/2021 TSH 02/19/2025 02/20/2024, 12/0 01/2023, 07/07/2023, Additional history exists DXA Scan 03/22/2025 03/22/2023, 03/17, 02/08/2012, Additional history exists DTap/Tdap Vaccines (2 - Td or Tdap) 11/05/2031 11/05/2021, 07/22/2008 Pneumococcal Vaccine: 50+ Years Completed 10/30/2015, 06/14/2007 Influenza Vaccine (FLU shot) Completed 03/2024, 07/07/2023, 06/30/2022, Additional history exists VITAMIN D LEVEL ONCE IN A LIFETIME-USE SMARTSET# [id number] Completed 07/20/2024, 07/07/2023, 03/25/2022, Additional history exists [...] filedocumented as of this encounter Care Teams Broadcast News Producer Relationship Specialty Start Date End Date Vika Castellanos DO PCP - General Family Medicine 05/22/12 documented as of this encounter
--- OUTSIDE RECORDS SUMMARY | 2025-02-03 18:39 | External Medical Summary | Summary of Care ---
Author Name Unknown Organization [facility] Address [address] [place] [address] Phone [phone] Care Team Providers Care Watch Crystal Grinder Name Role Phone Vika Castellanos DO Primary Care Provider [phone] Reason for Visit * Reason Comments Outpatient Testing Encounter Details Date Type Department Care Team (Late st Contact Info) Description 08/31/2024 12:00 PM EST Laboratory Laboratory Scenery [facility] [address] [place] [address] [facility] Lab Scenery [address] [place] [address] Arrived Allergies Active Allergy Reactions Criticality Noted Date Comments Erythromycin 10/07/2021 Drowsy Cyclobenzaprine Hcl 02/19/2014 Worsened rls, made her heart pound Nitroglycerin Low 01/09/2023 Other reaction(s): Headache Famotidine Other (Please comment) 2023 GI upset, nausea Sulfa Antibiotics Edema airway High 08/11/2004 Tolterodine Edema airway High 08/11/2004 Detrol [place] documented as of this encounter (statuses as of 08/31/2024) Medications acetaminophen (TYLENOL) 325 MG Tablet Take [...] CAPSULE BY MOUTH TWICE DAILY 180 Capsule 4 Active Escitalopram Oxalate 20 MG Oral [...] MG Oral Tablet (Eliquis)Indicatio ns: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 90 Tablet 9 4 Active Ferrous Sulfate 325 (65 Fe) MG Oral Tablet Delayed Release Take 1 Tablet by mouth in the morning. 90 Tablet 9 4 Active LORazepam 0.5 MG Oral Tablet (Ativan)Indication s:Anxiety state Take 1 Tablet by mouth 2 times a day as needed for Anxiety or Insomnia. 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 [...] as of this encounter (statuses as of 08/31/2024) Resolved Problems Problem Noted Date Diagnosed Date [...] as of this encounter (statuses as of 08/31/2024) Immunizations Name Administration Dates Next Due COVID-19 [...] PM EST Office Visit Hematology/Oncology [facility] [place] [address] [place] [phone] Betsy Tompkins CRNP [address] [facility] [place] [address] Arrived 09/26/2024 11:30 AM EST Office Visit Gastroenterology, [facility] 132 [facility] [place] [address] Lacy Tompkins CRNP 132 [facility] [place] [address] 12/31/2024 11:50 AM EDT Office Visit [facility] [address] [place] [address] Vika Castellanos, DO [address] [place] [address] 03/25/2025 10:30 AM EDT Imaging Radiology, [place] [id number] [facility] [place] [address] 04/16/2025 1:00 PM EDT Office Visit Neurology [facility] [address] [place] [address] Hung Ennis DO [address] [place] [address] Health Maintenance Due Date Last Done Comments [...] D LEVEL ONCE IN A LIFETIME-USE SMARTSET# [id number] Completed 07/20/2024, 07/07/2023, 03/25/2022, Additional history exists [...] filedocumented as of this encounter Care Teams Watch Crystal Grinder Relationship Specialty Start Date End Date Vika Castellanos DO [address] [facility] [place] [address] PCP - General Family Medicine 05/22/12 documented as of this encounter
--- OUTSIDE RECORDS SUMMARY | 2025-02-03 18:39 | External Medical Summary ---
Author Name Unknown Address Unknown Organization K01:[facility] [place] [address] [place] [address] Laboratory Report Ordering Provider Test Date Status CUBA ODONNELL 08/31/2024 14:04:51 Final Observation Date Value Abnormality Reference (Units ) Status Folic Acid 08/31/2024 14:04:51 >20.0 >4.5 (ng/ mL) Final Performing Location [facility] - [address] [place] [address]
--- OUTSIDE RECORDS SUMMARY | 2025-02-03 18:39 | External Medical Summary | Summary of Care ---
Author Name Unknown Organization [facility] Address [address] [place] [address] Phone [phone] Care Team Providers Care Wood Technologist Name Role Phone Art Castellanos DO Primary Care Provider [phone] Reason for Visit * Reason Onset Date Comments Medication Refill 08/30/2024 Encounter Details Date Type Department Care Team (Late st Contact Info) Description 08/30/2024 Refill [facility] [address] [facility] [address] Art Castellanos DO [address] [place] [address] Anxiety state Allergies Active Allergy Reactions Criticality Noted Date Comments Erythromycin 10/07/2021 Drowsy Cyclobenzaprine Hcl 02/19/2014 Worsened rls, made her heart pound Nitroglycerin Low 01/09/2023 Other reaction(s): Headache Famotidine Other (Please comment) 2023 GI upset, nausea Sulfa Antibiotics Edema airway High 08/11/2004 Tolterodine Edema airway High 08/11/2004 Detrol [place] documented as of this encounter (statuses as of 09/03/2024) Medications acetaminophen (TYLENOL) 325 MG Tablet Take [...] MG Oral Tablet (Eliquis)Indicati ons: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 30 Tablet 4 Active LORazepam 0.5 MG Oral Tablet (Ativan)Indicatio ns:Anxiety state Take 1 Tablet by mouth 2 times a day as needed for Anxiety or Insomnia. 30 Tablet 4 024 Discontin ued(Refil l) documented as of this encounter (statuses as of 09/03/2024) Active Problems Problem Noted Date Diagnosed Date [...] as of this encounter (statuses as of 09/03/2024) Resolved Problems Problem Noted Date Diagnosed Date [...] as of this encounter (statuses as of 09/03/2024) Immunizations Name Administration Dates Next Due COVID-19 [...] Telephone Encounter - Art Castellanos DO - 09/03/2024 11:52 AM ESTSigned Prescriptions: Disp Refills LORazepam 0.5 MG Oral Tablet (Ativan) 30 Tab*0 Sig: Take 1 Tablet by mouth 2 times a day as needed for Anxiety or Insomnia. Authorizing Provider: ART CASTELLANOS * Telephone Encounter - Art Castellanos DO - 09/03/2024 11:52 AM ESTSigned Prescriptions: Disp Refills LORazepam 0.5 MG Oral Tablet (Ativan) 30 Tab*0 Sig: Take 1 Tablet by mouth 2 times a day as needed for Anxiety or Insomnia. Authorizing Provider: ART CASTELLANOS * Telephone Encounter - Shonda Murray CPhT - 09/03/2024 9:38 AM EST Patient calling to check on status of Lorazepam. Caller can be reached at [phone]. Thank you, Shonda Murray CPhT Census Clerk [facility] ([facility]) 09/03/2024,9:38 AM * Telephone Encounter - Aspen Quinn [facility] - 09/01/2024 6:16 AM ESTPending Prescriptions: Disp Refills LORazepam 0.5 MG Oral Tablet (Ativan) 30 Tab*0 Sig: Take 1 Tablet by mouth 2 times a day as needed for Anxiety or Insomnia. * Telephone Encounter - Negrito Jesus [facility] - 08/31/2024 3:25 PM ESTPending Prescriptions: Disp Refills LORazepam 0.5 MG Oral Tablet (Ativan) 30 Tab*0 Sig: Take 1 Tablet by mouth 2 times a day as needed for Anxiety or Insomnia. * Telephone Encounter - Negrito Jesus [facility] - 08/31/2024 3:24 PM EST I have reviewed the patient’s controlled substance dispensing history in the Prescription Drug Monitoring Program in compliance with the [facility] regulations before prescribing a controlled substance. PDMP checked on 08/31/2024. Pending Prescriptions: Disp Refills LORazepam 0.5 MG Oral Tablet (Ativan) 30 Tab*0 Sig: Take 1 Tablet by mouth 2 times a day as needed for Anxiety or Insomnia. Last Visit: 08/09/2024 (in office), 11/17/2020 (telemedicine) Next Visit: Visit date not found Date medication was last filled: 08/09/24 Date medication is due for refill: 08/23/24 Pharmacy: [id number] [facility] Is this request for a controlled substance? Yes and Urine Drug Screen Not completed Toxicology results: No results found. However, due to the size of the patient record, not all encounters were searched.Please check Results Review for a complete set of results. Please approve if appropriate. Thank You, Negrito Currie [facility] Clinical Pharmacist [facility] ([facility]) 08/31/2024, 3:24 PM * Telephone Encounter - Angeles Pickard CPhT - 08/31/2024 3:13 PM EST Patient only has 3 pills left Thank you, Angeles Pickard [facility] Census Clerk [facility] Services ([facility]) 08/31/2024, 3:13 PM * Telephone Encounter - Royal Alvarado hadoop architect - 08/30/2024 1:58 PM EST Did you pend patient's preferred pharmacy and medication before forwarding?yes Pharmacy: [id number] [facility] Pending Prescriptions: Disp Refills LORazepam 0.5 MG Oral Tablet (Ativan) 30 Tab*0 Sig: Take 1 Tablet by mouth 2 times a day as needed for Anxiety or Insomnia. Last Visit: 08/09/2024 (in office), 11/17/2020 (telemedicine) Next Visit: Visit date not found If no future appointments scheduled, and last appointment is greater than a year ago, please schedule patient for a follow-up appointment Last date the medication was ordered: 08/09/2024 Is this request for a controlled substance?Yes, What was the last refill date 08/09/2024 w/ quantity 30 tabs and dosage 0.5 mg and Urine Drug [...] AM EST Office Visit Gastroenterology, [facility] [address] [place] [address] Lacy Tompkins CRNP [address] [place] [address] 11/26/2024 10:00 AM EST Laboratory Laboratory, [place] [address] [place] [address] Fernanda Medina [facility] [place] [address] 12/03/2024 2:30 PM EST Office Visit Hematology/Oncology [facility] 200 [facility] [phone] Betsy Tompkins CRNP [address] [place] [address] 12/31/2024 11:50 AM EDT Office Visit Family Practice, [facility] [address] Art Castellanos, DO [address] [facility] [address] 03/25/2025 10:30 AM EDT Imaging Radiology, [facility] [address] [facility] [place] [address] 04/16/2025 1:00 PM EDT Office Visit Neurology [facility] 200 [facility] [place] [address] Hung Ennis, DO 200 [facility] [place] [address] Health Maintenance Due Date Last Done Comments [...] D LEVEL ONCE IN A LIFETIME-USE SMARTSET# [id number] Completed 07/20/2024, 07/07/2023, 03/25/2022, Additional history exists [...] unspecified documented in this encounter Care Teams Wood Technologist Relationship Specialty Start Date End Date Art Castellanos DO [address] [place] [address] PCP - General Family Medicine 05/22/12 documented as of this encounter
--- OUTSIDE RECORDS SUMMARY | 2025-02-03 18:39 | External Medical Summary | Summary of Care ---
Author Name Unknown Organization [facility] Address [address] [facility] [address] Phone [phone] Care Team Providers Care Director Family Name Role Phone Art Castellanos DO Primary Care Provider [phone] Reason for Visit * Reason Onset Date Comments Medication Refill 09/11/2024 Encounter Details Date Type Department Care Team (Late st Contact Info) Description [facility]/11[facility]2024 [facility] [address] [place] [phone] Art Castellanos DO [address] [place] [address] Allergies Active Allergy Reactions Criticality Noted Date Comments Erythromycin 10/07/2021 Drowsy Cyclobenzaprine Hcl 02/19/2014 Worsened rls, made her heart pound Nitroglycerin Low 01/09/2023 Other reaction(s): Headache Famotidine Other (Please comment) 2023 GI upset, nausea Sulfa Antibiotics Edema airway High 08/11/2004 Tolterodine Edema airway High 08/11/2004 Detrol [place] documented as of this encounter (statuses as of 09/12/2024) Medications acetaminophen (TYLENOL) 325 MG Tablet Take [...] MG Oral Tablet (Eliquis)Indicati ons: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),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 TAKE 1 [...] Tablet 9 4 024 Discontin ued(Refil l) documented as of this encounter (statuses as of 09/12/2024) Active Problems Problem Noted Date Diagnosed Date Long-term current use of benzodiazepine 05/28/20 24 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 Authorizing Provider: ART CASTELLANOS * Telephone Encounter - Gage Faustin OSA - 09/11/2024 8:13 AM EST Pending Prescriptions: Disp Refills Folic Acid 1 MG Oral Tablet 90 Tab*9 Sig: Take 1 Tablet by mouth in the morning. Last Visit: Visit date not found (in office), Visit date not found (telemedicine) Next Visit: 12/31/2024 Last date the medication was ordered: Patient Active Problem List Diagnosis Hypothyroidism Esophageal [...] manifestations (HCC) Long-term current use of benzodiazepine Labs: Lab Results Component Value Date/Time CREATININE - [facility] 0.8 07/20/2024 10:32 AM CREATININE - [facility] 0.70 11/25/2020 12:00 AM CREATININE - [facility] 0.9 10/28/2020 10:50 AM Lab Results Component Value Date/Time POTASSIUM - [facility] 3.9 02/20/2024 09:49 AM POTASSIUM - [facility] 3.9 11/25/2020 12:00 AM POTASSIUM - [facility] 3.4 (L) 10/28/2020 10:50 AM Lab Results Component Value Date/Time TSH - [facility] 0.45 02/20/2024 09:49 AM TSH - [facility] 1.08 07/02/2020 12:37 PM TSH - OUTSIDE LAB 0.175 (A) 02/01/2018 12:00 AM Lab Results Component Value Date/Time LDL CHOLESTEROL (CALCULATED) - [facility] 70 09/03/2019 08:43 AM LDL CHOLESTEROL (CALCULATED) - [facility] 67 12/05/2017 09:07 AM LDL CHOLESTEROL (DIRECT MEASURE) - [facility] 97 10/28/2020 10:50 AM LDL CHOLESTEROL (DIRECT MEASURE) - [facility] NOT APPLICABLE 09/03/2019 08:43 AM LDL CHOLESTEROL (DIRECT MEASURE) - [facility] 86 01/06/2011 09:02 AM LDL CHOLESTEROL (DIRECT MEASURE) - [facility] 168 (H) 07/18/2009 10:27 AM Lab Results Component Value Date/Time ALT - [facility] <5 (L) 08/12/2023 10:44 AM ALT - [facility] 9 (L) 10/28/2020 10:50 AM ALT-OUTSIDE LAB 15 04/19/2016 12:00 AM Hemoglobin AIC Results: Lab Results Component Value Date/Time HEMOGLOBIN A1C - [facility] 5.5 08/26/2010 08:31 AM HEMOGLOBIN A1C - [facility] 5.6 05/03/2007 08:51 AM documented in this encounter Plan of Treatment Upcoming Encounters Date Type Department Care Team (Late st Contact Info) Description 09/26/2024 11:30 AM EST Office Visit Gastroenterology, [facility] [address] [place] [address] Lacy Tompkins CRNP [address] [place] [address] 11/26/2024 10:00 AM EST [facility] [address] [facility] [place] [phone] [place], Laboratory [facility] [place] [address] 12/03/2024 2:30 PM EST Office Visit Hematology/Oncology [facility] [address] [place], [place] [phone] Betsy Tompkins CRNP 400 [facility] [place] [address] 12/31/2024 11:50 AM EDT Office Visit Family Practice, [place] 226 [place] [phone] Art Castellanos DO 226 [facility] [place] [address] 03/25/2025 10:30 AM EDT Imaging Radiology, [address] [place], [place] [address] 04/16/2025 1:00 PM EDT Office Visit Neurology [facility] [address] [place] [address] Hung Ennis DO [address] [place], [place] [address] Health Maintenance Due Date Last Done Comments [...] D LEVEL ONCE IN A LIFETIME-USE SMARTSET# [id number] Completed 07/20/2024, 07/07/2023, 03/25/2022, Additional history exists [...] filedocumented as of this encounter Care Teams Director Family Relationship Specialty Start Date End Date Art Castellanos DO [address] [place] [address] PCP - General Family Medicine 05/22/12 documented as of this encounter
--- OUTSIDE RECORDS SUMMARY | 2025-02-03 18:39 | External Medical Summary | Summary of Care ---
Author Name Unknown Organization [facility] Address [address] [place] [address] Phone [phone] Care Team Providers Care Machine Tech Name Role Phone Vika Castellanos DO Primary Care Provider [phone] Reason for Visit * Reason Comments Outpatient Testing Encounter Details Date Type Department Care Team (Late st Contact Info) Description 08/31/2024 2:00 PM EST Laboratory Laboratory Scenery [facility] [address] [place] [phone] [facility] Lab Scenery [address] [place] [address] Iron deficiency anemia due to chronic blood [...] MG Oral Tablet (Eliquis)Indicatio ns: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),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 TAKE [...] without fluctuating manifestations 01/11/2024 Senile osteoporosis 07/07/2023 residential current use of anticoagulant therapy 0 06/30/2022 [...] 09/26/2024 11:30 AM EST Office Visit [facility] [address] [place] [address] Lacy Tompkins CRNP 132 [facility] [place] [address] 11/26/2024 10:00 AM EST Laboratory Laboratory, [facility] 226 [facility] [address] [facility] [address] [facility] [address] 12/03/2024 2:30 PM EST Office Visit Hematology/Oncology [facility] 200 [facility] [place] [phone] Betsy Tompkins CRNP 400 [facility] [place] [address] 12/31/2024 11:50 AM EDT Office Visit Family Practice, [facility] 226 [facility] [address] iVka Castellanos DO [address] [place] [address] 03/25/2025 10:30 AM EDT Imaging Radiology, [address] [place] [address] 04/16/2025 1:00 PM EDT Office Visit Neurology [place] [facility] 200 [facility] [place] [address] Hung Ennis, DO 200 [facility] [place] [address] Pending Results Name Type Priority Associated Diagnoses Date /Time CBC WITH WBC DIFFERENTIAL Lab Routine Iron deficiency anemia due to chronic blood loss 08/31/2024 2:04 PM EST IRON SCREEN, INCLUDING TIBC Lab Routine Iron deficiency anemia due to chronic blood loss 08/31/2024 2:04 PM EST FERRITIN Lab Routine Iron deficiency anemia due to chronic blood loss 08/31/2024 2:04 PM EST VITAMIN B12 Lab Routine Iron deficiency anemia due to chronic blood loss 08/31/2024 2:04 PM EST FOLIC ACID Lab Routine Iron deficiency anemia due to chronic blood loss 08/31/2024 2:04 PM EST CBC Lab Routine Iron deficiency anemia due to chronic blood loss 08/31/2024 2:04 PM EST DIFFERENTIAL, AUTOMATED Lab Routine Iron deficiency anemia due to chronic blood loss 08/31/2024 2:04 PM EST Health Maintenance Due Date Last [...] D LEVEL ONCE IN A LIFETIME-USE SMARTSET# [id number] Completed 07/20/2024, 07/07/2023, 03/25/2022, Additional history exists [...] (chronic) documented in this encounter Care Teams Machine Tech Relationship Specialty Start Date End Date Vika Castellanos DO [address] [place] [address] PCP - General Family Medicine 05/22/12 documented as of this encounter
--- OUTSIDE RECORDS SUMMARY | 2025-02-03 18:39 | External Medical Summary | Summary of Care ---
Author Name Unknown Organization [facility] Address [address] [place] [address] Phone [phone] Care Team Providers Care Typewriter Mechanic Name Role Phone Vika Castellanos DO Primary Care Provider [phone] Reason for Visit * Reason Comments Follow Up dysphagia GERD Pt reports that she still has problems swallowing depending on what she eats. Since she started Iron Supplements, she has been constipated. 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)*; Gastroesophageal reflux disease, unspecified whether esophagitis present; Oropharyngeal dysphagia; Iron deficiency anemia, unspecified iron deficiency anemia type Allergies Active Allergy Reactions Criticality Noted Date Comments Erythromycin 10/07/2021 Drowsy Cyclobenzaprine Hcl 02/19/2014 Worsened rls, made her heart pound Nitroglycerin Low 01/09/2023 Other reaction(s): Headache Famotidine Other (Please comment) 2023 GI upset, nausea Sulfa Antibiotics Edema airway High 08/11/2004 Tolterodine Edema airway High 08/11/2004 Detrol LA documented as of this encounter (statuses as of 09/26/2024) Medications acetaminophen (TYLENOL) 325 MG Tablet Take [...] MG Oral Tablet (Eliquis)Indicatio ns: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 90 Tablet 9 4 Active documented as of this encounter (statuses as of 09/26/2024) Active Problems Problem Noted Date Diagnosed Date [...] as of this encounter (statuses as of 09/26/2024) Resolved Problems Problem Noted Date Diagnosed Date [...] as of this encounter (statuses as of 09/26/2024) Immunizations Name Administration Dates Next Due COVID-19 [...] Sign Reading Time Taken Comments Blood Pressure 138/60 09/26/2024 11:16 AM EST Pulse 81 09/26/2024 11:16 AM EST Temperature 36.7 °C (98.1 °F) 09/26/2024 1 1:16 AM EST Respiratory Rate - - Oxygen Saturation - - Inhaled Oxygen Concentration - - Weight 54.8 kg (120 lb 14.4 oz) 024 11:16 AM EST Height - - Body Mass Index 26.16 08/31/2024 12:51 PM EST documented in this encounter Progress Notes * Lacy Tompkins CRNP - 09/26/2024 11:23 AM EST CC: F/U gastroparesis, GERD, dysphagia in the setting of Parkinson's HPI: Recall that Ms. Sera Gutiérrez is an 84-year-old female patient followed for the above issues as well as a hx of a adenomatous duodenal polyps since 2019 by MINESH Dacosta. She tells me that she is doing well and that she returns today for a scheduled recheck. Recently w mild anemia, improved wpo iron. Following w hem/onc. Current GI Symptoms: Minimal reflux or dysphagia symptoms. Very occasionally coughs when swallowing. Mild anemia recently 11.1 in July, added po iron recheck 11.8. BMs black on iron but prior to starting iron didn't have black BMs. Hasn't had any blood in BMs. No abd pain. Has some nuasea mornin gand night, after taking "all my pills," resolved w ondansetran. Latest Reference Range & Units Most Recent 12/11/20 12:26 10/15/21 12:59 03/25/22 12:29 05/24/22 11:30 08/12/23 10:44 07/20/24 10:32 08/31/24 14:04 HGB 12.0 - 15.3 g/dL 11.8 (L) 08/31/24 14:04 12.2 11.7 (L) 12.8 11.6 (L) 11.1 (L) 11.4 (L) 11.8 (L) HCT 36.0 - 45.2 % 36.7 08/31/24 14:04 37.2 38.2 39.6 36.7 35.8 (L) 38.3 36.7 MCV 81.5 - 97.5 fL 95.1 08/31/24 14:04 102.8 (H) 99.0 (H) 95.9 97.9 93.5 98.5 95.1 EGD 07/13/19: - Normal esophagus. Biopsied. - Normal stomach. Biopsied. - Erythematous mucosa in the antrum. - Normal duodenal bulb and second portion of the duodenum. Biopsied. A. Small bowel, duodenum, biopsies: Long intact villi with no significant pathologic change No parasitic organisms are identified B. Stomach, antrum, biopsies: Mild chronic inactive gastritis No H. pylori-like organisms seen No specialized intestinal metaplasia or dysplasia is seen C. Esophagus, distal, biopsies: Superficial fragments of squamous mucosa with no significant pathologic change No evidence of eosinophils or an esophagitis No gastric oxyntic or cardia mucosa identified EGD 11/25/2021: normal exam findings EGD 08/2023: normal exam, no specimen collected Video Swallow at [facility] on 12/16/22 reviewed: Imaging w trace aspiration. Per speech, pt w mild/moderate oralpharyngeal dysphagia and esophageal dysmotility. Recommended slippery diet. EXAM: BP 138/60 | Pulse 81 | Temp 36.7 °C (98.1 °F) | Wt 54.8 kg (120 lb 14.4 oz) | BMI 26.16 kg/m² | BSA 1.48 m² GENERAL: 84 year old female well developed and well nourished in no acute distress, walks w a limp,has a cane and is independent. SKIN: no rashes, ulcers, or spider angiomata HEENT: mild torticollis and facial assymmetry and facial twitch, sclera clear, pharynx normal NECK: supple, no lymphadenopathy, no masses or thyroid enlargement LUNGS: clear to auscultation anterior and posterior HEART: regular rate & rhythm, no murmurs and no gallops ABDOMEN: normo-active bowel sounds, soft, non-tender, non-distended no masses, no hepatosplenomegaly, no rebound or guarding, no bruits EXTREMITIES: no palmar erythema, no edema, no skin discoloration, no clubbing, no cyanosis NEURO: no lateralizing findings, Sensory/Motor grossly normal IMPRESSION/RECOMMENDATIONS: 84 year old female with 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 Patient was unaware that she had had slight aspiration at that time. She tells me that she does not have any intent of ever having a PEG tube placed. - slippery diet and aspiration precautions reviewed Iron deficiency anemia, unspecified iron deficiency anemia type - continue w po iron, hem/onc follow up. - Most recent EGD 2022, most recent colonoscopy 2015. I recommend to avoid endoscopy if possible and pt also prefers to avoid endoscopy if possible. We will reconsider if gross GI bleeding or if anemia worsens. Recheck in GI in 6m and as needed. I spent a total of 30 minutes on the date of service in review of patient's record, and previously obtained information in person and appropriate medical visit, discussion and education of plan, withpatient and/or caregiver, placing orders for tests/referral/procedures as medically necessary and documentation of pertinent clinical information in patient's medical records for their visit today. Thank you for the opportunity to be involved in the care of this patient. MINESH Webb documented in this encounter Nursing Notes * Zuleyma Ochoa LPN - 09/26/2024 11:16 AM EST Chief Complaint Patient presents with Follow Up dysphagia GERD Pt reports that she still has problems swallowing depending on what she eats. Since she started Iron Supplements, she has been constipated. documented in this encounter Plan of Treatment Upcoming Encounters Date Type Department Care Team (Late st Contact Info) Description 11/26/2024 10:00 AM EST Laboratory Laboratory, [place] [facility] [address] [place] [phone] [place], Laboratory [address] [facility] [place] [address] 12/03/2024 2:30 PM EST Office Visit Hematology/Oncology [facility] [address] [facility] [place] [phone] Betsy Tompkins CRNP [address] [place] [address] [place] [address] 12/31/2024 11:50 AM EDT Office Visit Family Practice, [facility] [address] [place] [phone] Vika Castellanos DO [address] [facility] [place] [address] 03/25/2025 10:30 AM EDT Imaging Radiology, [address] [place] [address] 04/02/2025 10:30 AM EDT Office Visit Gastroenterology, [facility] [address] [place] [address] Lacy Tompkins CRNP [address] [place] [address] 04/16/2025 1:00 PM EDT Office Visit Neurology [facility] [address] [facility] [place] [address] Hung Ennis, DO [address] [place], [place] [address] Health Maintenance Due Date Last Done Comments [...] D LEVEL ONCE IN A LIFETIME-USE SMARTSET# [id number] Completed 07/20/2024, 07/07/2023, 03/25/2022, Additional history exists [...] Visit Diagnoses Diagnosis 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
--- OUTSIDE RECORDS SUMMARY | 2025-02-03 18:39 | External Medical Summary | Summary of Care ---
Author Name Unknown Organization [facility] Address [address] [facility] [address] Phone [phone] Care Team Providers Care Nuclear Plant Technical Advisor Name Role Phone Art Castellanos DO Primary Care Provider [phone] Reason for Visit * Reason Onset Date Comments Medication Refill 09/26/2024 Encounter Details Date Type Department Care Team (Late st Contact Info) Description [facility] [address] [place] [phone] Art Castellanos [...] as of this encounter (statuses as of 09/28/2024) Medications acetaminophen (TYLENOL) 325 MG Tablet Take [...] MG Oral Tablet (Eliquis)Indicati ons: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),halfway current use of anticoagulant therapy TAKE 1 [...] as of this encounter (statuses as of 09/28/2024) Active Problems Problem Noted Date Diagnosed Date Long-term current use of benzodiazepine 05/28/20 24 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 01/11/2024 Senile osteoporosis 07/07/2023 halfway current use of anticoagulant therapy 0 06/30/2022 [...] as of this encounter (statuses as of 09/28/2024) Resolved Problems Problem Noted Date Diagnosed Date [...] as of this encounter (statuses as of 09/28/2024) Immunizations Name Administration Dates Next Due COVID-19 [...] Telephone Encounter - Art Castellanos DO - 09/28/2024 9:12 AM ESTSigned Prescriptions: Disp Refills LORazepam 0.5 MG Oral Tablet (Ativan) 30 Tab*0 Sig: Take 1 Tablet by mouth 2 times a day as needed for Anxiety or Insomnia.Authorizing Provider: ART CASTELLANOS-- * Telephone Encounter - Art Castellanos DO - 09/28/2024 9:12 AM ESTSigned Prescriptions: Disp Refills LORazepam 0.5 MG Oral Tablet (Ativan) 30 Tab*0 Sig: Take 1 Tablet by mouth 2 times a day as needed for Anxiety or Insomnia. Authorizing Provider: ART CASTELLANOS * Telephone Encounter - Nikki Gutierrez CPhT - 09/28/2024 8:26 AM EST Pt has 2 tabs left. Pt calling to check on status of rx. Caller can be reached at [phone]. Thank you, Nikki Gutierrez [facility] Resident Physician In Radiology II [facility] 09/28/2024,8:26 AM * Telephone Encounter - Jason Hickman [facility] - 09/27/2024 3:20 PM ESTPending Prescriptions: Disp Refills LORazepam 0.5 MG Oral Tablet (Ativan) 30 Tab*0 Sig: Take 1 Tablet by mouth 2 times a day as needed for Anxiety or Insomnia. * Telephone Encounter - Jason Hickman [facility] - 09/27/2024 3:20 PM EST I have reviewed the patient’s controlled substance dispensing history in the Prescription Drug Monitoring Program in compliance with the [facility] regulations before prescribing a controlled substance. PDMP checked on 09/27/2024. Pending Prescriptions: Disp Refills LORazepam 0.5 MG Oral Tablet (Ativan) 30 Tab*0 Sig: Take 1 Tablet by mouth 2 times a day as needed for Anxiety or Insomnia. Last Visit: Visit date not found (in office), Visit date not found (telemedicine) Next Visit: 12/31/2024 Date medication was last filled: 09-03-24 Date medication is due for refill: 09-18-24 Pharmacy: [id number] Is this request for a controlled substance? and Urine Drug Screen Not completed Toxicology results: No results found. However, due to the size of the patient record, not all encounters were searched.Please check Results Review for a complete set of results. Please approve if appropriate. Taiwo Giraldo.Ph. Clinical Pharmacist [facility] [address] [place] [address], [address]: [phone] 09/27/2024,3:20 PM * Telephone Encounter - Royal Alvarado, corner former - 09/26/2024 3:23 PM EST Did you pend patient's preferred pharmacy and medication before forwarding?yes Pharmacy: [id number] [facility] Pending Prescriptions: Disp Refills LORazepam 0.5 [...] appointment Last date the medication was ordered: 09/03/2024 Is this request for a controlled substance?Yes, What was the last refill date 09/03/2024 w/ quantity 30 tabs and dosage 0.5 [...] Laboratory Laboratory, [facility] [address] [place] [phone] [facility] [address] [place] [address] [place] [address] 12/03/2024 2:30 PM EST Office Visit [facility]ology[facility] [phone] Betsy Tompkins CRNP [address] [facility] [place] [address] 12/31/2024 11:50 AM EDT Office Visit Family Practice, [facility] [address] [place] [phone] Art Castellanos DO [address] [facility] [place] [address] 03/25/2025 10:30 AM EDT Imaging Radiology [facility] [address] [place] [phone] 04/02/2025 10:30 AM EDT Office Visit Gastroenterology, [facility] [address] [place] [address] Lacy Tompkins CRNP [address] [place] [address] 04/16/2025 1:00 PM EDT Office Visit Neurology [facility] [place] [address] [place] [address] Hung Ennis, [address] [facility] [place] [address] Health Maintenance Due Date Last Done Comments [...] D LEVEL ONCE IN A LIFETIME-USE SMARTSET# [id number] Completed 07/20/2024, 07/07/2023, 03/25/2022, Additional history exists [...] unspecified documented in this encounter Care Teams Nuclear Plant Technical Advisor Relationship Specialty Start Date End Date Art Castellanos DO [address] [place] [address] PCP - General Family Medicine 05/22/12 documented as of this encounter
--- OUTSIDE RECORDS SUMMARY | 2025-02-03 18:39 | External Medical Summary | Summary of Care ---
Author Name Unknown Organization [facility] Address [address] [place] [address] Phone [phone] Care Team Providers Care Manager Gaming Name Role Phone Vika Castellanos DO Primary Care Provider Reason for Visit * Reason Comments Follow Up Encounter Details Date Type Department Care Team (Late st Contact Info) Description 08/31/2024 11:20 AM EST Office Visit Neurology [facility] [place] [address] [place] [address] Hung Ennis DO [address] [place] [address] New onset of headaches after age 50*; Sialorrhea; Parkinson's disease without dyskinesia or fluctuating manifestations (HCC) Allergies Active Allergy Reactions Criticality Noted [...] MG Oral Tablet (Eliquis)Indicati ons: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),correction current use of anticoagulant therapy TAKE 1 [...] twice daily 60 Tablet 1 4 Active Atropine Sulfate 1 % Ophthalmic SolutionIndicatio ns:Sialorrhea 1-2 drop under you tongue every 8 hours as needed for drooling 2 mL 12 3 024 Discontin ued(Refil l) documented as of [...] Sign Reading Time Taken Comments Blood Pressure 124/58 08/31/2024 11:26 AM EST Pulse 83 08/31/2024 11:26 AM EST Temperature 36.9 °C (98.4 °F) 08/31/2024 11:[address] Respiratory Rate 16 08/31/2024 11:26 AM EST Oxygen Saturation 95% 08/31/2024 11:26 AM EST Inhaled Oxygen Concentration - - Weight 54.4 kg (120 lb) 08/31/2024 11:26 AM EST Height - - Body Mass Index 24.24 08/09/2024 10:46 AM EDT documented in this encounter Progress Notes * Hung Ennis, DO - 08/31/2024 11:29 AM EST Progress [place] [address] NAME: Sera Gutiérrez Date of : 1940 Date of Visit: 02/11/23 Chief Complaint: Chief Complaint Patient presents with Follow Up Subjective: An 82-year-old female with history of asymptomatic bilateral carotid stenosis, history of pulmonary embolism on 06/23/2022 on Eliquis, history of right total knee arthroplasty,restless leg syndrome on Requip 1 mg nightly and Parkinson's disease on Sinemet 25/100 mg BID presenting to clinic for follow-up. Patient last seen by myself in Jul 2023. She is on Sinemet 1 tablet twice daily at 8:30 a.m. and 1:30 p.m.. She did not tolerata stopping this medication.. She is also on Requip 1 mg nightly for restless leg. She is using Ativan as needed for anxiety. She did not tolerate Klonopin well. She also has developed some drooling that is bothersome to her. Improve with atropine drops.She still has ongoing headaches particularly on the right side that seemed to be more temporal and radiate backwards. She occasionally has not on the left side. She did undergo MRI of the brain as well as was placed on gabapentin. Headaches have persisted. She also has some intermittent restless leg syndromes particularly during the day. HOME MEDICATIONS : Current Outpatient Medications Medication Sig Dispense Refill acetaminophen (TYLENOL) 325 MG Tablet Take 1 Tablet by mouth. Tylenol PM Extra Strength 500-25 MG Oral Tablet (diphenhydrAMINE-APAP (sleep)) Take 1 Tablet by mouth daily as needed for Sleep. Atropine Sulfate 1 % Ophthalmic Solution 1-2 drop under you tongue every 8 hours as needed for drooling 2 mL 12 Levothyroxine Sodium 50 MCG Oral Tablet (Levoxyl) [...] GI upset, nausea Nitroglycerin Other reaction(s): Headache PHYSICAL EXAMINATION: Vital Signs: BP 124/58 (BP Site: Right Arm, BP Position: Sitting, BP Cuff Size: Regular) | Pulse 83 | Temp 36.9 °C (98.4 °F) (Tympanic) | Resp 16 | Wt 54.4 kg (120 lb) | SpO2 95% | BMI 24.24 kg/m² | BSA 1.51 m² EXAM: Constitutional: Thin-appearing female, no acute distress Head and Face: normocephalic and atraumatic Eyes: normal lids, normal conjunctiva Neck: supple Respiratory: normal effort Cardiovascular: regular rhythm and normal pulses Abdomen: non distended Skin: no rashes, lesions, or ulcers noted Psychiatric: normal judgement and insight, normal mood and normal affect NEUROLOGIC EXAMINATION: Appearance: no acute distress Orientation: awake, alert and oriented x 3 Mental Status: alert Attention: normal Knowledge: appropriate Language: no aphasia Speech: no dysarthria Cranial Nerves: CN 2 - no visual defect on confrontation and pupils round, equal, reactive to light CN 3, 4, 6 - extra-ocular movements intact and no nystagmus CN 5 - facial sensation intact CN 7 - no facial asymmetry CN 8 - intact hearing CN 9, 10 - palate symmetric CN 11 - good shoulder shrug CN 12 - tongue midline Gait: Wide-based and ataxic gait ambulating with a cane, flexed posture, shuffling gait Coordination: Right hand pill rolling tremor more present while ambulating Sensory: intact to light touch Muscle Tone: normal Muscle exam: 02/18 throughout LABORATORY: Labs reviewed and pertinent findings are indicated below: Component Latest Ref Rng 03/25/2022 BUN 6 - 20 mg/dL 8 Creatinine 0.5 - 1.0 mg/dL 0.8 Estimated Glomerular Filtration Rate >=60 mL/min 70 Sodium 135 - 146 mmol/L 141 Potassium 3.5 - 5.1 mmol/L 4.9 Chloride 98 - 107 mmol/L 102 CO2 22 - 32 mmol/L 20 (L) Anion Gap 7 - 15 mmol/L 19 (H) Glucose 70 - 120 mg/dL 80 Albumin 3.8 - 5.0 g/dL 4.7 AST 10 - 35 U/L 15 Alkaline Phosphatase 35 - 130 U/L 83 Bilirubin, Total <=1.2 mg/dL 0.6 Calcium 8.4 - 10.2 mg/dL 9.5 Protein 6.0 - 8.3 g/dL 7.0 ALT 10 - 35 U/L <5 (L) WBC 4.00 - 10.80 K/uL 5.67 Neutrophils % 40.0 - 75.0 % 55.7 Lymphocytes % 18.0 - 42.0 % 33.9 Monocytes % 1.0 - 11.0 % 7.8 Eosinophils % 0.0 - 6.0 % 1.2 Basophils % 0.0 - 2.0 % 0.7 Immature Granulocytes % 0.0 - 2.0 % 0.7 Absolute Neutrophils 1.80 - 7.70 K/uL 3.16 Absolute Lymphocytes 1.00 - 4.80 K/ul 1.92 Absolute Monocytes 0.00 - 1.10 K/uL 0.44 Absolute Eosinophils 0.00 - 0.70 K/uL 0.07 Absolute Basophils 0.00 - 0.20 K/uL 0.04 Absolute Immature Granulocytes 0.00 - 0.20 K/uL 0.04 WBC 4.00 - 10.80 K/uL 5.67 RBC 3.85 - 5.15 M/uL 4.13 HGB 12.0 - 15.3 g/dL 12.8 HCT 36.0 - 45.2 % 39.6 MCV 81.5 - 97.5 fL 95.9 MCH 27.0 - 34.0 pg 31.0 MCHC 32.0 - 36.0 g/dL 32.3 RDW 11.5 - 15.5 % 14.5 MPV 6.6 - 11.1 fL 9.9 nRBCs <=0 /100 WBCs 0 PLT 140 - 400 K/uL 318 Magnesium 1.5 - 2.6 mg/dL 2.1 ESR <30 mm/hour 16 25-Hydroxy Vitamin D >19 ng/mL 35 Lyme Disease Antibody Screen Negative Negative (L) Low (H) High Review of prior Diagnostic Tests: Review of prior Radiology Studies: MRI BRAIN WITHOUT CONTRAST - 01/12/2024 HISTORY: Fall, head injury TECHNIQUE: MR images of the brain were acquired without intravenous contrast. COMPARISON: MRI brain 09/09/2023 FINDINGS: No evidence of acute infarction, intracranial hemorrhage, or mass. Chronic lacunar infarctions involving the bilateral basal ganglia, posterior cerebellar hemispheres, and left jalloh radiata. Patchyareas of T2/FLAIR hyperintense signal throughout the periventricular and subcortical white matter which are nonspecific but likely related to chronic microvascular disease. Diffuse parenchymal volume loss with proportionate ventricular and sulcal prominence. No hydrocephalus. No extra-axial fluid collections. The vascular flow voids at the base of the brain are grossly preserved. The paranasal sinuses and mastoid air cells are clear. Bilateral lens replacement. Mild right parietal scalp swelling. No acute, displaced calvarial fracture. IMPRESSION IMPRESSION: No evidence of acute infarction, recent intracranial hemorrhage, or mass. Chronic lacunar infarctions involving the bilateral basal ganglia, cerebellar hemispheres, and leftcorona radiata. Chronic microvascular white matter disease and parenchymal volume loss. Mild right parietal scalp swelling. No evidence of acute, displaced calvarial fracture. MRI of the brain performed on 05/23/2017: FINDINGS There is no acute infarct or hemorrhage. There is mild to moderate global volume loss which is mildly progressed from prior study. There is no mass mass effect or midline shift. Each TMJ normal. Calvarium is normal. For nonspecific T2 and FLAIR hyperintensities in the subcortical deep Three white matter of bilateral frontal and parietal lobes largest of which is in the left jalloh radiata measuring 8 mm. Parotid glands are normal. Ventricles basal cisterns and extra- axial spaces are normal. Nasopharynx is normal. IMPRESSION 1. No acute intracranial abnormality. 2. New punctate and patchy nonenhancing T2 and FLAIR hyperintensities in the white matter of bilateral frontal parietal lobes most commonly associated with chronic microvascular changes given patient's age. However differential diagnosis includes demyelination, vasculitis, or gliosis from old infection inflammation or trauma. 3. Mild to moderate global volume loss worsened from prior study. IMPRESSION / PLAN: Sera was seen today for follow up. Diagnoses and all orders for this visit: New onset of headaches after age 50 - ERYTHROCYTE SEDIMENTATION RATE (ESR) Sialorrhea - Atropine Sulfate 1 % Ophthalmic Solution; 1-2 drop under you tongue every 8 hours as needed for drooling Parkinson's disease without dyskinesia or fluctuating manifestations (HCC) Other orders - tiZANidine HCl 2 MG Oral Tablet (Zanaflex); 1 tablet twice daily Sera Gutiérrez is a 84-year-old female with history restless leg syndrome on Requip 1 mg nightly, asymptomatic carotid stenosis, history of pulmonary embolism on Eliquis, and parkinson's disease on Sinemet 25/100 BID presenting to clinic for follow-up. She did not tolerate stopping Sinemet in the pastdue to freezing and walking difficulties. Klonopin also did not help her tremor. Recommend she take Sinemet 1 tablet 3 times daily particularly in the morning, around lunchtime, and early evening. Inregards to the sialorrhea recommend she continue atropine drops as needed. In regards to her persistent headaches particularly on the right side MRI brain imaging was reassuring with no evidence of space-occupying lesion or acute intracranial abnormality. She has had no significant improvement withthe use of gabapentin 300 mg twice daily. Recommend adding Zanaflex 2 mg twice daily for headache prophylaxis. Will arrange for a sed rate today. Will arrange for formal follow-up in 3-4 months. Hung Ennis DO documented in this encounter Nursing Notes * Pat Segal LPN - 08/31/2024 11:26 AM EST Patient verified identity by spelling of last name and date. Chief Complaint Patient presents with Follow Up documented in this encounter Plan of Treatment Upcoming Encounters Date Type Department Care Team (Late st Contact Info) Description 09/26/2024 11:30 AM EST Office Visit Gastroenterology, [facility] [address] [facility] [place] [address] Lacy Tompkins CRNP [address] [place] [address] 12/31/2024 11:50 AM EDT Office Visit [facility] [address] [facility] [place] [address] Vika Castellanos, [address] [facility] [place] [address] 03/25/2025 10:30 AM EDT Imaging Radiology, [facility] [address] [facility] [place] [address] 04/16/2025 1:00 PM EDT Office Visit Neurology [facility] [address] [place] [address] Hung Ennis, DO [address] [facility] [place] [address] Pending Results Name Type Priority Associated Diagnoses Date /Time ERYTHROCYTE SEDIMENTATION RATE (ESR) Lab Routine New onset of headaches after age 50 08/31/2024 12:04 PM EST Health Maintenance Due Date Last [...] D LEVEL ONCE IN A LIFETIME-USE SMARTSET# [id number] Completed 07/20/2024, 07/07/2023, 03/25/2022, Additional history exists [...] Diagnosis New onset of headaches after age 50- Primary Headache Sialorrhea Disturbance of salivary secretion Parkinson's disease without dyskinesia or fluctuating manifestations (HCC) documented in this encounter Care Teams Manager Gaming Relationship Specialty Start Date End Date Vika Castellanos DO [address] [place] [address] PCP - General Family Medicine 05/22/12 documented as of this encounter"
--- OUTSIDE RECORDS SUMMARY | 2025-02-03 18:39 | External Medical Summary | Summary of Care ---
Author Name Unknown Organization [facility] Address [address] [place] [address] Phone [phone] Care Team Providers Care Italian Tutor Name Role Phone Art Acosta DO Primary Care Provider [phone] Reason for Visit * Reason Onset Date Comments Medication Refill 08/30/2024 Encounter Details Date Type Department Care Team (Late st Contact Info) Description 08/30/2024 [facility]ill [facility] [address] [facility] [address] Art Acosta DO [address] [place] [address] Anxiety state Allergies Active Allergy [...] encounter Miscellaneous Notes * Telephone Encounter - Lucia Pendleton PHARM Tech - 09/04/2024 9:06 AM EST After hours vm received over weekend for lorazepam refill. Already addressed above. Thank You, Lucia Pendleton, [facility] Housing Case Manager II [facility] 09/04/2024, 9:06 AM * Telephone Encounter - Art Acosta DO - 09/03/2024 11:52 AM ESTSigned Prescriptions: Disp Refills LORazepam 0.5 MG Oral Tablet (Ativan) 30 Tab*0 Sig: Take 1 Tablet by mouth 2 times a day as needed for Anxiety or Insomnia. Authorizing Provider: ART ACOSAT * Telephone Encounter - Art Acosta DO - 09/03/2024 11:52 AM ESTSigned Prescriptions: Disp Refills LORazepam 0.5 MG Oral Tablet (Ativan) 30 Tab*0 Sig: Take 1 Tablet by mouth 2 times a day as needed for Anxiety or Insomnia. Authorizing Provider: ART ACOSTA * Telephone Encounter - Shonda Murray CPhT - 09/03/2024 9:38 AM EST Patient calling to check on status of Lorazepam. Caller can be reached at [phone]. Thank you, Shonda Murray CPhT Housing Case Manager [facility] 09/03/2024,9:38 AM * Telephone Encounter - Aspen Quinn [facility] - 09/01/2024 6:16 AM ESTPending Prescriptions: Disp Refills LORazepam 0.5 MG Oral Tablet (Ativan) 30 Tab*0 Sig: Take 1 Tablet by mouth 2 times a day as needed for Anxiety or Insomnia. * Telephone Encounter - Negirto Jesus [facility] - 08/31/2024 3:25 PM ESTPending Prescriptions: Disp Refills LORazepam 0.5 MG Oral Tablet (Ativan) 30 Tab*0 Sig: Take 1 Tablet by mouth 2 times a day as needed for Anxiety or Insomnia. * Telephone Encounter - Negrito Jesus [facility] - 08/31/2024 3:24 PM EST I have reviewed the patient’s controlled substance dispensing history in the Prescription Drug Monitoring Program in compliance with the [facility] regulations before prescribing a controlled substance. [...] is due for refill: 08/23/24 Pharmacy: [id number] Is this request for a controlled substance? Yes and Urine Drug Screen Not completed Toxicology results: No results found. However, due to the size of the patient record, not all encounters were searched.Please check Results Review for a complete set of results. Please approve if appropriate. Thank You, Negrito Currie [facility] Clinical Pharmacist [facility] 08/31/2024, 3:24 PM * Telephone Encounter - Angeles Pickard CPhT - 08/31/2024 3:13 PM EST Patient only has 3 pills left Thank you, Angeles Pickard [facility] Housing Case Manager [facility] 08/31/2024, 3:13 PM * Telephone Encounter - Royal Alvarado, power transformer inspector - 08/30/2024 1:58 PM EST Did you pend patient's preferred pharmacy and medication before forwarding?yes Pharmacy: [id number] Pending Prescriptions: Disp Refills LORazepam 0.5 MG [...] 09/26/2024 11:30 AM EST Office Visit Gastroenterology, [facility] [address] [place] [address] Lacy Tompkins CRNP [address] [place] [address] 11/26/2024 10:00 AM EST Laboratory Laboratory, [facility] [address] [facility] [place] [address] [facility] [address] [place] [address] 12/03/2024 2:30 PM EST Office Visit Hematology/Oncology [facility] [address] [place] [id number] Betsy Tompkins CRNP [address] [facility] [place] [address] 12/31/2024 11:50 AM EDT Office Visit [address] Practice, [address] [address] Art Acosta, DO [address] [facility] [address] 03/25/2025 10:30 AM EDT Imaging Radiology, [address] [place] [address] 04/16/2025 1:00 PM EDT Office Visit Neurology [facility] [address] [facility] [place] [address] Hung Ennis, DO [address] [facility] [place] [address] Health Maintenance Due Date Last Done Comments [...] D LEVEL ONCE IN A LIFETIME-USE SMARTSET# [id number] Completed 07/20/2024, 07/07/2023, 03/25/2022, Additional history exists [...] unspecified documented in this encounter Care Teams Italian Tutor Relationship Specialty Start Date End Date Art Acosta DO [address] [place] [address] PCP - General Family Medicine 05/22/12 documented as of this encounter
--- OUTSIDE RECORDS SUMMARY | 2025-02-03 18:40 | External Medical Summary | Summary of Care ---
Author Name Unknown Organization [facility] Address [address] [place] [address] Phone [phone] Care Team Providers Care General Warehouse Worker Name Role Phone Vika Castellanos DO Primary Care Provider [phone] Reason for Visit * Reason Comments IV Therapy Reclast * Episode Based Medications (Routine) - Authorized Specialty Diagnoses / Procedures Referred By Contac t Referred To Contact Diagnoses Senile osteoporosis Procedures MS ZOLEDRONIC ACID 1MG Dru Crystal CRNP [address] [place] [address] Phone: tel: fax: Hematology/Oncology Treatment, [address] [place] [address] Phone: tel: fax: Referral ID Status Reason Start Date Expiration Date V isits Requested Visits Authorized [id number] Authorized 07/10/2024 07/10/2025 [id number] Encounter Details Date Type Department Care Team (Latest Contact Info) Description 08/03/2024 10:00 AM EDT Hem/Onc Treatment Hematology/Oncology Treatment, [address] [address] Kala, Chair 2 Hem Onc [address] [address] Senile osteoporosis* Allergies Active Allergy Reactions Criticality Noted Date Comments Erythromycin 10/07/2021 Drowsy Cyclobenzaprine Hcl 02/19/2014 Worsened rls, made her heart pound Nitroglycerin Low 01/09/2023 Other reaction(s): Headache Famotidine Other (Please comment) 2023 GI upset, nausea Sulfa Antibiotics Edema airway High 08/11/2004 Tolterodine Edema airway High 08/11/2004 Detrol LA documented as of this encounter (statuses as of 08/28/2024) Medications acetaminophen (TYLENOL) 325 MG Tablet Take 1 Tablet by mouth. 6 Active Tylenol PM Extra Strength 500-25 MG Oral Tablet (diphenhydrAMINE- APAP (sleep)) Take 1 Tablet by mouth daily as needed for Sleep. 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 01/11/2024 Senile osteoporosis 07/07/2023 retail performance specialist current use of anticoagulant therapy 0 06/30/2022 [...] as of this encounter (statuses as of 08/28/2024) Resolved Problems Problem Noted Date Diagnosed Date [...] as of this encounter (statuses as of 08/28/2024) Immunizations Name Administration Dates Next Due COVID-19 [...] Sign Reading Time Taken Comments Blood Pressure 150/56 08/03/2024 10:13 AM EDT Pulse 80 08/03/2024 10:13 AM EDT Temperature 36.8 °C (98.3 °F) 08/03/2024 10:13 AM E DT Respiratory Rate 16 08/03/2024 10:13 AM EDT Oxygen Saturation 92% 08/03/2024 10:13 AM EDT Inhaled Oxygen Concentration - - Weight - - Height - - Body Mass Index - - documented in this encounter Nursing Notes * Maki Boudreaux LPN - 08/03/2024 10:13 AM EDT Patient arrived Chair 2 for IV therapy Reclast. Vital signs are stable. IV access successful at theright forearm; IV line flushed with ease; positive blood return; IV fluids connected and infusing. Acetaminophen 325mg tablets x 2 administered orally per standing order. Call ortega within reach. Patient instructed on use of heat and massage functions where applicable. Patient shown how to operate the heat function of the chair and to alert nursing staff if the chair feels too warm. Patient instructed on the risk of potential mendez while using the heat function. 1155 Patient completed IV therapy. IV access discontinued; site cleaned and bandaged. Patient discharged in stable condition. documented in this encounter Plan of Treatment Upcoming Encounters Date Type Department Care Team (Late st Contact Info) Description 08/31/2024 11:20 AM EST Office Visit Neurology [facility] [address] [facility] [place] [address] Hung Ennis, [address] [facility] [place] [address] 08/31/2024 1:00 PM EST Office Visit Hematology/Oncology [facility] [address] [facility] [place] [address] Betsy Tompkins CRNP [address] [place], [place] [address] [address] 09/26/2024 11:30 AM EST Office Visit Gastroenterology, [facility] [address] [place] [address] Lacy Tompkins CRNP [address] [facility] [place] [address] 12/31/2024 11:50 AM EDT Office Visit [facility] [address] [facility] [address] Vika Castellanos, DO [address] [facility] [place] [address] 03/25/2025 10:30 AM EDT Imaging Radiology, [place] [id number] [facility] [place] [address] Health Maintenance Due Date Last Done Comments [...] D LEVEL ONCE IN A LIFETIME-USE SMARTSET# [id number] Completed 07/20/2024, 07/07/2023, 03/25/2022, Additional history exists [...] as of this encounter Visit Diagnoses Diagnosis Senile osteoporosis- Primary documented in this encounter Administered Medications Inactive Administered Medications - up to 3 most recent administrations Medication Order MAR Action Action Date Dose Rate Site Acetaminophen (Tylenol) tab 650 mg 650 mg, Oral, ONCE, On Tue08/03/24 at 1030, For 1 dose, Maximum of 4 grams (4000 mg) per day.Indications:Senile osteoporosis Given 08/03/2024 10:05 AM EDT 650 mg NSS infusion Intravenous, at 50 mL/hr, PRN, Starting on Tue08/03/24 at 1100, Until Tue08/03/24 at 1554, Maintenance lineIndications:Senile osteoporosis Rate Verify 08/03/2024 10:54 AM EDT 50 mL/hr Restarted 08/03/2024 10:53 AM EDT 50 mL/hr Start Infusion 08/03/2024 10:05 AM EDT 50 mL/hr Zoledronic Acid (Reclast) 5 mg in 100 mL PREMIX ivpb 5 mg, IV Piggyback, ONCE, 1 dose, On Tue08/03/24 at 1100, Administer over 45 minutes for 1st infusion and 30 minutes for subsequent.Indications:Senile osteoporosis Start Infusion 08/03/2024 11:00 AM EDT 5 mg 133.33 mL/hr Start Infusion 08/03/2024 10:07 AM EDT 5 mg 133.33 m L/hr documented in this encounter Care Teams General Warehouse Worker Relationship Specialty Start Date End Date Vika Castellanos DO [address] [place] [address] PCP - General Family Medicine 05/22/12 documented as of this encounter
--- OUTSIDE RECORDS SUMMARY | 2025-02-03 18:40 | External Medical Summary ---
Author Name Unknown Address Unknown Organization K09:[facility] [address] [place] [address] Laboratory Report Ordering Provider Test Date Status CUBA ODONNELL 08/31/2024 14:04:51 Final Observation Date Value Abnormality Reference (Units ) Status WBC, Total 08/31/2024 14:04:51 6.72 4.00-10.8 0 (K/uL) Final RBC 08/31/2024 14:04:51 3.86 3.85-5.15 (M/uL) Final Hemoglobin 08/31/2024 14:04:51 11.8 Below low normal 12 .0-15.3 (g/dL) Final HCT 08/31/2024 14:04:51 36.7 36.0-45.2 (%) Final MCV 08/31/2024 14:04:51 95.1 81.5-97.5 (fL) Final MCH 08/31/2024 14:04:51 30.6 27.0-34.0 (pg) Final MCHC 08/31/2024 14:04:51 32.2 32.0-36.0 (g/dL) Final RDW 08/31/2024 14:04:51 18.6 11.5-15.5 (%) Final Platelets 08/31/2024 14:04:51 260 140-400 (K /uL) Final MPV 08/31/2024 14:04:51 8.7 6.6-11.1 ( fL) Final Performing Location [facility] [place] [address]
--- OUTSIDE RECORDS SUMMARY | 2025-02-03 18:40 | External Medical Summary | Summary of Care ---
Author Name Unknown Organization [facility] Address [address] [place] [address] Phone [phone] Care Team Providers Care Manager Garage Name Role Phone Vika Castellanos DO Primary Care Provider + [phone] Reason for Referral * Evaluate & Treat - Unlimited Visits (Within 30 days (routine)) - Authorized Specialty Diagnoses / Procedures Referred By Geo geller Referred To Contact Physical Therapy / Physical Medicine And Rehab Diagnoses Parkinson's disease with dyskinesia and fluctuating manifestations (HCC) Torticollis Tracey Vides PA-C [address] [place] [address] Referral ID Status Reason Start Date Expiration Date Visits Requested Visits Authorized [id number] Authorized Specialty Services Required 4 [phone] Question Answer Referral Priority Within 30 days (routine) Where should this appointment be scheduled? 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 * Evaluate & Treat - Unlimited Visits (Within 30 days (routine)) - Authorized Specialty Diagnoses / Procedures Referred By Geo geller Referred To Contact Podiatry Diagnoses Thick nail Use of cane as ambulatory aid Requires assistance with activities of daily living (ADL) Parkinson's disease with dyskinesia and fluctuating manifestations (HCC) Tracey Vides PA-C [address] [place] [address] Referral ID Status Reason Start Date Expiration Date Visits Requested Visits Authorized [id number] Authorized Specialty Services Required 4 [phone] Question Answer Referral Priority Within 30 days (routine) Where should this appointment be scheduled? [facility] Which condition are you referring this patient for? Nail trimming Medicare Patient? Yes Can Patient perform routine footcare without assistance? No Does patient have a chronic condition? Yes Has patient been seen in the past 6 months? Yes Date last seen for chronic condition: 08/09/2024 Who saw patient for chronic condition? Tracey Vides PA-C Reason for Visit * Reason Comments Edema Pt states that she i s here for a increased swelling to both feet Encounter Details Date Type Department Care Team (Latest Contact Info) Description 08/09/2024 10:40 AM EDT Office Visit [facility] [address] [place] [address] Tracey Vides PA-C [address] [place] [address] Thick nail*; Use of cane as ambulatory aid; Requires assistance with activities of daily living (ADL); Parkinson's disease with dyskinesia and fluctuating manifestations (HCC); Torticollis; Bilateral lower extremity edema; Anxiety state Allergies Active Allergy Reactions Criticality Noted Date Comments Erythromycin 10/07/2021 Drowsy Cyclobenzaprine Hcl 02/19/2014 Worsened rls, made her heart pound Nitroglycerin Low 01/09/2023 Other reaction(s): Headache Famotidine Other (Please comment) 2023 GI upset, nausea Sulfa Antibiotics Edema airway High 08/11/2004 Tolterodine Edema airway High 08/11/2004 Detrol LA documented as of this encounter (statuses as of 08/09/2024) Medications Medication Sig Dispensed Refills Start Date [...] for drooling 2 mL 12 08/12/2023 Active Levothyroxine Sodium 50 MCG Oral Tablet (Levoxyl)Indication s:Hypothyroidism, unspecified type TAKE 1 TABLET BY MOUTH EVERY MORNING (AT LEAST 30 MIN PRIOR TO BREAKFAST OR OTHER MEDS) 90 Tablet 3 11/22/2023 Active Carbidopa-Levodopa 25-100 MG Oral Tablet (Sinemet) 1 tablet 3x daily 270 Tablet 1 02/23/2024 Active Montelukast Sodium 10 MG Oral Tablet [...] MORNING AND AT BEDTIME 60 Tablet 3 06/19/2024 Active Saccharomyces boulardii 250 MG Oral Capsule (Florastor) Take 1 Capsule by mouth daily. 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 180 Tablet 1 06/27/2024 Active rOPINIRole HCl 1 MG Oral Tablet (Requip) TAKE 1 TABLET BY MOUTH EVERYDAY AT BEDTIME 90 Tablet 3 06/27/2024 Active Omeprazole 40 MG Oral Capsule Delayed Release (PriLOSEC)Indicatio ns:Gastroesophageal reflux disease without esophagitis TAKE 1 CAPSULE BY MOUTH EVERY DAY IN THE MORNING 90 Capsule 1 06/27/2024 Active Lisinopril 2.5 MG Oral Tablet (Prinivil) TAKE 1 TABLET BY MOUTH EVERY DAY IN THE MORNING 90 Tablet 1 06/27/2024 Active Folic Acid 1 MG Oral Tablet Take 1 Tablet by mouth in the morning. 90 Tablet 9 07/11/2024 Active Ferrous Sulfate 325 (65 Fe) MG Oral Tablet Delayed Release Take 1 Tablet by mouth in the morning. 90 Tablet 9 07/11/2024 Active LORazepam 0.5 MG Oral Tablet (Ativan)Indications :Anxiety state Take 1 Tablet by mouth 2 times a day as needed for Anxiety or Insomnia. 30 Tablet 08/09/2024 Active LORazepam 0.5 MG Oral Tablet (Ativan)Indications :Anxiety state Take 1 Tablet by mouth 2 times a day as needed for Anxiety or Insomnia. 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 0 06/30/2022 [...] as of this encounter (statuses as of 08/09/2024) Resolved Problems Problem Noted Date Diagnosed Date [...] as of this encounter (statuses as of 08/09/2024) Immunizations Name Administration Dates Next Due COVID-19 [...] Sign Reading Time Taken Comments Blood Pressure 130/58 08/09/2024 10:46 AM EDT Pulse 79 08/09/2024 10:46 AM EDT Temperature 36.2 °C (97.1 °F) 08/09/2024 1 0:46 AM EDT Respiratory Rate 18 08/09/2024 10:4 6 AM EDT Oxygen Saturation 95% 08/09/2024 10: 46 AM EDT Inhaled Oxygen Concentration - - Weight 53.9 kg (118 lb 12.8 oz) 024 10:46 AM EDT Height 149.9 cm (4' 11") 08/09/2024 10: 46 AM EDT Body Mass Index 23.99 08/09/2024 10:46 AM EDT documented in this encounter Progress Notes * Tracey Vides PA-C - 08/09/2024 10:46 AM EDT Images from the original note were not included. History of Present Illness Sera Gutiérrez is a 84 year old female that presents for Edema (Pt states that she is here for a increased swelling to both feet/) Had increased swelling on both feet She attributed it to sitting on a loveseat rather than her lounger and raising her feet. It was not painful and has improved to some degree She had ball with this but not more than her norm She is urinating normally Has not been on a salt hernadez BUN Results: Lab Results Component Value Date/Time BUN - [facility] 11 02/20/2024 09:49 AM BUN - [facility] 10 09/19/2023 01:05 PM BUN - [facility] 9 08/12/2023 10:44 AM BUN - [facility] 8 10/28/2020 10:50 AM BUN - [facility] 7 07/02/2020 12:37 PM BUN - [facility] 13 09/03/2019 08:43 AM Creatinine Results: Lab Results Component Value Date/Time CREATININE - [facility] 0.8 07/20/2024 10:32 AM CREATININE - [facility] 0.8 02/20/2024 09:49 AM CREATININE - [facility] 0.8 09/19/2023 01:05 PM CREATININE - [facility] 0.70 11/25/2020 12:00 AM CREATININE - [facility] 0.9 10/28/2020 10:50 AM CREATININE - [facility] 0.8 07/02/2020 12:37 PM CREATININE - [facility] 0.9 09/03/2019 08:43 AM CBC Results: Results for orders placed or performed in visit on 07/20/24 CBC Result Value Ref Range WBC 4.64 [...] 11.1 fL nRBCs 0 <=0 /100 WBCs Pt ambulates with a cane. History of stroke,. Physical Exam Vitals: 08/09/24 1046 Temp: 36.2 °C (97.1 °F) Pulse: 79 Resp: 18 SpO2: 95% BP: 130/58 BMI: 23.98 BP Readings from Last 3 Encounters: 08/09/24 130/58 08/03/24 150/56 07/10/24 96/52 Wt Readings from Last 3 Encounters: 08/09/24 53.9 kg (118 lb 12.8 oz) 07/10/24 53.5 kg (118 lb) 06/22/24 53.8 kg (118 lb 11.2 oz) BMI Readings from Last 3 Encounters: 08/09/24 23.99 kg/m² 07/10/24 23.82 kg/m² 06/22/24 23.96 kg/m² Ht Readings from Last 3 Encounters: 08/09/24 1.499 m (4' 11") 06/22/24 1.499 m (4' 11.02") 05/28/24 1.499 m (4' 11.02") General: alert, healthy, and no distress Head: Normocephalic, No masses, lesions, tenderness or abnormalities Eye Exam: PERRLA, extraocular movements intact, conjunctiva are pink and non- injected, sclera clear Neck: visible torticollis to the R Heart: regular rate & rhythm, no murmur, no gallops, S-1 normal, and S-2 normal Lungs: chest symmetric with normal AP diameter, no chest deformities noted, no chest wall tenderness, lungs clear to auscultation Abdomen: abdomen soft, non-tender, normal bowel sounds, and no masses or organomegaly Back: back symmetric, no curvature, no costovertebral angle tenderness, range of motion is normal Extremities: less than 2 second capillary refill, no joint deformities, effusion, or inflammation, 1+ pitting edema to the mid calfo f hte LE saloni, good dp and pt pulses Skin: skin color, texture, turgor are normal, no rashes or significant lesions, thick nails Assessment and Plan Thick nail (Primary) - PODIATRY REFERRAL OP Use of cane as ambulatory aid - PODIATRY REFERRAL OP Requires assistance with activities of daily living (ADL) - PODIATRY REFERRAL OP Parkinson's disease with dyskinesia and fluctuating manifestations (HCC) - PODIATRY REFERRAL OP - PHYSICAL THERAPY REFERRAL OP Torticollis - PHYSICAL THERAPY REFERRAL OP Bilateral lower extremity edema 0 as below Anxiety state - LORazepam 0.5 MG Oral Tablet (Ativan); Take 1 Tablet by mouth 2 times a day as needed for Anxietyor Insomnia. Check-out note: Pods appt for nail trimming PT Wrap-Up Echo done inpatient June 2024 with normal EF Recent labs normal for renal fxn Compression socks and elevated I have reviewed the patient’s controlled substance dispensing history in the Prescription Drug Monitoring Program in compliance with the [place] regulations before prescribing a controlled substance. Last Tox Screen Results: No results found. However, due to the size of the patient record, not all encounters were searched.Please check Results Review for a complete set of results. Compression socks, could be secondary to anemia or reclast or position change or multifactorial. I do not think Lasix is appropriate - she would struggle to get to the bathroom with her ambulationand cane use. Time: I spent a total of 20-29 minutes (exact time 29 mins) on the date of service in preparation, delivery, and documentation of the care provided to Sera Gutiérrez excluding any time spent in the performance of separately billed services. Tracey Vides PA-C 08/09/2024 11:06 AM documented in this encounter Nursing Notes * Jessy Eduardo LPN - 08/09/2024 10:46 AM EDT Sera Gutiérrez is a 84 year old female who presents today for Chief Complaint Patient presents with Edema Pt states that she is here for a increased swelling to both feet documented in this encounter Plan of Treatment Upcoming Encounters Date Type Department Care Team (Late st Contact Info) Description 08/31/2024 11:20 AM EST Office Visit Neurology [facility] [address] [facility] [place] [address] Hung Ennis DO [address] [facility] [place] [address] 08/31/2024 1:00 PM EST Office Visit Hematology/Oncology [facility] [address] [facility] [place] [phone] Betsy [facility]kins [facility] [address] [facility] [place] [address] 09/26/2024 11:30 AM EST Office Visit Gastroenterology, [facility] [address] [place] [address] Lacy Tmopkins CRNP [address] [place] [address] 12/31/2024 11:50 AM EDT [address] [phone] Vika Castellanos DO [address] [facility] [place] [address] 03/25/2025 10:30 AM EDT Imaging Radiology[address] [place] [address] Scheduled Referrals Name Type Priority Associated Diagnoses Orde r Schedule PODIATRY REFERRAL OP Referral Within 30 days (routine) Thick nail Use of cane as ambulatory aid Requires assistance with activities of daily living (ADL) Parkinson's disease with dyskinesia and fluctuating manifestations (HCC) Ordered: 08/09/2024 PHYSICAL THERAPY REFERRAL OP Referral Within 30 days (routine) Parkinson's disease with dyskinesia and fluctuating manifestations (HCC) Torticollis Ordered: 08/09/2024 Health Maintenance Due Date Last Done Comments [...] D LEVEL ONCE IN A LIFETIME-USE SMARTSET# [id number] Completed 07/20/2024, 07/07/2023, 03/25/2022, Additional history exists [...] as of this encounter Visit Diagnoses Diagnosis Thick nail- Primary Use of cane as ambulatory aid Difficulty in walking Requires assistance with activities of daily living (ADL) Parkinson's disease with dyskinesia and fluctuating manifestations (HCC) Torticollis Torticollis, unspecified Bilateral lower extremity edema Edema Anxiety state Anxiety state, unspecified documented in this encounter Care Teams Manager Garage Relationship Specialty Start Date End Date Vika Castellanos DO [address] [place] [facility] [place] [address] PCP - General Family Medicine 05/22/12 documented as of this encounter
--- OUTSIDE RECORDS SUMMARY | 2025-02-03 18:40 | External Medical Summary | Summary of Care ---
Author Name Unknown Organization [facility] Address [address] [place] [address] Phone [phone] Care Team Providers Care Compliance Representative Dealer Name Role Phone Vika Castellanos DO Primary Care Provider [phone] Reason for Visit * Reason Comments IV Therapy Reclast * Episode Based Medications (Routine) - Authorized Specialty Diagnoses / Procedures Referred By Geo t Referred To Contact Diagnoses Senile osteoporosis Procedures DE ZOLEDRONIC ACID 1MG Dru Crystal CRNP [address] [place] [address] Anc Hem/[place]c [address] [place] [address] Referral ID Status Reason Start Date Expiration Date V isits Requested Visits Authorized [id number] Authorized 07/10/2024 07/10/[phone] Encounter Details Date Type Department Care Team (Latest Contact Info) Description 08/03/2024 10:00 AM EDT Hem/Onc Treatment Hematology/Oncology Treatment, [address] [place] [address] Kala, Chair 2 Hem Onc [address] [place] [address] Senile osteoporosis* Allergies Active Allergy Reactions Criticality Noted Date Comments Erythromycin 10/07/2021 Drowsy Cyclobenzaprine Hcl 02/19/2014 Worsened rls, made her heart pound Nitroglycerin Low 01/09/2023 Other reaction(s): Headache Famotidine Other (Please comment) 2023 GI upset, nausea Sulfa Antibiotics Edema airway High 08/11/2004 Tolterodine Edema airway High 08/11/2004 Detrol LA documented as of this encounter (statuses as of 08/14/2024) Medications Medication Sig Dispensed Refills Start Date [...] MG Oral Tablet (Eliquis)Indication s: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),assisted current use of anticoagulant [...] for Anxiety or Insomnia. 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 [address] [place], [place] [phone] Betsy Tompkins CRNP [address] [facility] [place] [address] 09/26/2024 11:30 AM EST Office Visit [facility]ology, [facility] [place] [address] Lacy Tompkins CRNP [address] [facility] [place] [address] 12/31/2024 11:50 AM EDT Office Visit [facility] [address] [place] [phone] Vika Castellanos DO [address] [place] [address] 03/25/2025 10:30 AM EDT Imaging Radiology, [address] [place] [address] Health Maintenance Due Date Last Done Comments [...] D LEVEL ONCE IN A LIFETIME-USE SMARTSET# [id number] Completed 07/20/2024, 07/07/2023, 03/25/2022, Additional history exists [...] Maximum of 4 grams (4000 mg) per day. Given 08/03/2024 10:05 AM EDT 650 mg NSS infusion Intravenous, at 50 mL/hr, PRN, Starting on Tue08/03/24 at 1100, Until Tue08/03/24 at 1554, Maintenance line Rate Verify 08/03/2024 10:54 AM EDT 50 m L/hr Restarted 08/03/2024 10:53 AM EDT 50 mL/hr Start Infusion 08/03/2024 10:05 AM EDT 50 mL/hr Zoledronic Acid (Reclast) 5 mg in 100 mL PREMIX ivpb 5 mg, IV Piggyback, ONCE, 1 dose, On Tue08/03/24 at 1100, Administer over 45 minutes for 1st infusion and 30 minutes for subsequent. Start Infusion 08/03/2024 11:00 AM EDT 5 mg 133.33 mL/hr Start Infusion 08/03/2024 10:07 AM EDT 5 mg 133.33 m L/hr documented in this encounter Care Teams Compliance Representative Dealer Relationship Specialty Start Date End Date Vika Castellanos DO [address] [place] [address] PCP - General Family Medicine 05/22/12 documented as of this encounter
--- OUTSIDE RECORDS SUMMARY | 2025-02-03 18:40 | External Medical Summary ---
Author Name Unknown Address Unknown Organization K01:[facility] - [address] [place] [address] Laboratory Report Ordering Provider Test Date Status YAMILET VASQUES 08/31/2024 12:04:49 Final Observation Date Value Abnormality Reference (Units ) Status Erythrocyte sedimentation rate by Photometric method 08/31/2024 12:04:49 11 <30 (mm/hour) Final Performing Location [facility] - [address] [place] [address]
--- OUTSIDE RECORDS SUMMARY | 2025-02-03 18:40 | External Medical Summary ---
Author Name Unknown Address Unknown Organization K01:[facility] [place] [address] [place] [address] Laboratory Report Ordering Provider Test Date Status CUBA ODONNELL 08/31/2024 14:04:51 Final Observation Date Value Abnormality Reference (Units ) Status Vitamin B12 08/31/2024 14:04:51 137 110-6553 (pg/mL) Final Performing Location [facility] - [address] [place] [address]
--- OUTSIDE RECORDS SUMMARY | 2025-02-03 18:40 | External Medical Summary | Summary of Care ---
Author Name Unknown Organization [facility] Address [address] [place] [address] Phone [phone] Care Team Providers Care Parlor Maid Name Role Phone Vika Castellanos DO Primary Care Provider [phone] Reason for Visit * Reason Comments IV Therapy Reclast * Episode Based Medications (Routine) - Authorized Specialty Diagnoses / Procedures Referred By Contac t Referred To Contact Diagnoses Senile osteoporosis Procedures ID ZOLEDRONIC ACID 1MG Dru Crystal CRNP [address] [place] [address] Phone: tel: fax: Hematology/Oncology Treatment, [address] [place] [address] Phone: tel: fax: Referral ID Status Reason Start Date Expiration Date V isits Requested Visits Authorized [id number] Authorized 07/10/2024 07/10/[phone] Encounter Details Date Type Department Care Team (Latest Contact Info) Description 08/03/2024 10:00 AM EDT Hem/Onc Treatment Hematology/Oncology Treatment, [address] [address] Kala, Chair 2 Hem Onc [address] [address] Senile osteoporosis* Allergies Active Allergy [...] Oral Tablet (Eliquis)Indicati ons: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),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 [address] [place] [address] Lacy Tompkins CRNP [address] [facility] [place] [address] 12/31/2024 11:50 AM EDT Office Visit [facility] [address] Vika Castellanos, DO [address] [facility] [place] [address] 03/25/2025 10:30 AM EDT Imaging Radiology, [place] [phone] [facility] [place] [address] Health Maintenance Due Date Last Done Comments [...] D LEVEL ONCE IN A LIFETIME-USE SMARTSET# [id number] Completed 07/20/2024, 07/07/2023, 03/25/2022, Additional history exists [...] L/hr documented in this encounter Care Teams Parlor Maid Relationship Specialty Start Date End Date Vika Castellanos DO [address] [place] [address] PCP - General Family Medicine 05/22/12 documented as of this encounter
--- NOTE | 2025-02-03 18:51 | Emergency Department Note ---
Impression & Plan Acute hypotension, Acute UTI, Fall, Contusion of forearm ED Provider Note NAME: ERIN BUTTERFIELD AGE: 84 SEX: F : 1940 ARRIVES VIA: Walk-In INFORMANT: Patient ED PROVIDER(S): Emerson Dunbar DO CHIEF COMPLAINT: Fall HPI: Patient is an 84-year-old female with a past medical history of osteoporosis, hypertension, anxiety, anemia and GERD who presents to the ER following a mechanical fall. She went to get out of bed to get her medications around 7 this morning and fell. She did hit her head and right arm. She does take Eliquis. No loss consciousness. No neck chest or belly pain. She does not believe she was dizzy or lightheaded. She just believes that she lost her balance that she does have Parkinsons. ADDITIONAL HISTORY OBTAINED: Per HPI Chronic Medical/Social Conditions Affecting Care: Per HPI PAST MEDICAL HISTORY:See Below PAST SURGICAL HISTORY:See Below FAMILY HISTORY:See Below SOCIAL HISTORY:See Below HOME MEDICATIONS:See Below ALLERGIES:See Below VITALS:See Below PHYSICAL EXAMINATION: GENERAL: alert, well appearing, well nourished, no distress, non-toxic HEAD: normal cephalic, atraumatic EYE EXAM: normal conjunctiva, PERRL and EOM's grossly intact OROPHARYNX: no exudate, no erythema, lips, buccal mucosa, and tongue normal and mucous membranes are moist NECK: supple, no nuchal rigidity, no adenopathy, non-tender CHEST: stable to compression anteriorly and posteriorly LUNGS: clear to auscultation. Normal chest wall mechanics HEART: no murmurs, S1 normal and S2 normal ABDOMEN: abdomen soft, non-tender, normo-active bowel sounds, no masses, no rebound or guarding. PELVIS: stable to compression anteriorly and posteriorly BACK: Back is symmetrical on inspection and there is no deformity, no midline tenderness, no CVA tenderness. UPPER EXTREMITIES: No tenderness on palpation of the entire left upper extremity. No tenderness on the right humerus but bruising with a contusion on the right mid dorsal forearm slightly more towards the ulnar surface. Skins intact. Radial pulse 2 out of 4. Flexion extension of the wrist is intact. No tenderness throughout the hand over the wrist. No scaphoid tenderness. LOWER EXTREMITIES: full active and passive range of motion of all joints without tenderness to palpation NEURO EXAM: Normal sensorium, cranial nerves II-XII grossly intact, normal speech, no gross weakness of arms, no gross weakness of legs. GCS: 15. MEDICAL DECISION MAKING: Patient is an 83-year-old female who presents to the ER for the above-stated complaint. IV was established blood work was obtained. Labs show no significant leukocytosis. Mild anemia at 10.6. BMP with a high serum chloride at 109. LFTs and bilirubin is unremarkable. Lipase is normal. UA consistent with UTI. Patient was given IV Rocephin and IV fluids. Blood pressures responded with IV fluids. CT abel scan was negative. X-ray of the forearm shows no acute fracture. She was updated bedside. Discussed case with the hospitalist for further evaluation management treatment. Consults/Care Managements Discussions: Per MDM Triage Nursing notes reviewed. Limited review of prior medical records performed Vital Signs: reviewed and remarkable for no significant abnormalities Differential diagnosis: Differential diagnoses include major intracranial, cervical, spinal, thoracic, abdominal, pelvic and neurologic injury. Fracture, contusion, sprain, strain, laceration, abrasions included as well. ER treatment provided: See below Diagnostics interpreted by me include EKG and cardiac monitoring as listed below: -Cardiac Monitoring: An order was placed for continuous cardiac monitoring. The monitor shows a rate of 80 with sinus rhythm. -ECG: none -Laboratory studies:Interpreted by me as stated above in MDM and shown below. Imaging studies: Xrays: As interpreted by me: X-ray of the right forearm shows no acute fracture or dislocation CTs show: CT abel scan was negative per radiology Procedures:none Critical Care: None Past Med/Surg History Problem List (Updated 02/03/25 @ 22:55 by Emerson Dunbar DO) Contusion of forearm (Acute) Fall (Acute) Acute UTI (Acute) Acute hypotension (Acute) UTI (urinary tract infection) Chest pain Vitamin D deficiency Osteoporosis Height loss Hyperparathyroidism Gastroparesis Dysphagia Hypertension (Acute) Acute electrocardiogram changes (Acute) Pulmonary emboli (Acute) Parkinson disease Acute pulmonary embolism Hypothyroidism (Chronic) Anxiety (Chronic) Osteoarthritis (Chronic) Depression (Chronic) GERD (gastroesophageal reflux disease) (Chronic) Hyperlipidemia (Chronic) Medical History Lung nodule Mitral valve prolapse No significant family history Hypothyroidism Hyperlipidemia GERD (gastroesophageal reflux disease) Thoracic radiculopathy Cerebral vascular disease Surgical History S/P cholecystectomy S/P hysterectomy Status post arthroscopy of shoulder Previous back surgery S/P cholecystectomy S/P hysterectomy Family History Other Heart disease Parkinson disease Social History Smoking Status: Former smoker Cigarettes Per Day: 1 ppd for 20yr quit in 1979; Second Hand Exposure: No; Do You Dip or Chew Tobacco: No; Hx Alcohol Use: No Hx Substance Use: No Preferred Language: Israeli Communication Ability: Effective 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 famotidine AdvReac Intermediate Gastrointestinal Verified 02/03/25 21:01 Upset erythromycin base AdvReac Mild Drowsy Verified 02/03/25 21:01 nitroglycerin AdvReac Mild Headache Verified 02/03/25 21:01 Home Meds Home Medications Medication Instructions Recorded Confirmed carbidopa 25 mg-levodopa 100 mg 1 tab PO TID 03/02/19 02/03/25 tablet levothyroxine 50 mcg tablet 50 mcg PO DAILYBB 03/02/19 02/03/25 montelukast 10 mg tablet 10 mg PO QAM 03/02/19 02/03/25 ropinirole 1 mg tablet 1 mg PO HS 03/02/19 02/03/25 ondansetron HCl 4 mg tablet 4 mg PO BID 10/14/20 02/03/25 gabapentin 300 mg capsule 300 mg PO BID 10/15/20 02/03/25 potassium chloride 10 mEq 10 meq PO QAM 05/12/21 02/03/25 tablet,extended release(part/cryst) (Klor-Con M) diphenhydramine 25 1 tab PO HS PRN Sleep 06/23/22 02/03/25 mg-acetaminophen 500 mg tablet (Tylenol PM Extra Strength) apixaban 5 mg tablet (Eliquis) 5 mg PO BID 01/09/23 02/03/25 acetaminophen 325 mg tablet 325 - 650 mg PO DIRECTED PRN 06/17/24 02/03/25 (Tylenol) PAIN/FEVER atropine 1 % eye drops 1 - 2 drp sublingual DIRECTED 06/17/24 02/03/25 PRN DROOLING calcium carbonate 500 mg PO DAILY 06/17/24 02/03/25 cholecalciferol (vitamin D3) 125 125 mcg PO DAILY 06/17/24 02/03/25 mcg (5,000 unit) tablet (Vitamin D3) escitalopram oxalate 10 mg tablet 10 mg PO DAILY 06/17/24 02/03/25 lorazepam 0.5 mg tablet 0.5 mg PO BID PRN ANXIETY/INSOMNIA 06/17/24 02/03/25 omeprazole 40 mg capsule,delayed 40 mg PO QAM 06/17/24 02/03/25 release albuterol sulfate 90 mcg/actuation 2 puff inhalation Q6H PRN 02/03/25 02/03/25 aerosol inhaler COUGH/CHEST CONGESTION fluticasone propionate 50 2 spray intranasal DAILY 02/03/25 02/03/25 mcg/actuation nasal spray,suspension tizanidine 2 mg tablet 2 mg PO BID 02/03/25 02/03/25 Previous Rx's Medication Instructions Recorded lisinopril 2.5 mg tablet 2.5 mg PO DAILY #30 tabs 01/11/23 ferrous sulfate 325 mg (65 mg 325 mg PO QAM #30 tabs 06/20/24 iron) tablet,delayed release folic acid 1 mg tablet 1 mg PO QAM #30 tabs 06/20/24 Results & Data (ED) Vital Signs Vital Signs - 24 hr 02/03/25 18:33 02/03/25 18:57 02/03/25 19:00 Temperature 36.7 C Temperature Source Temporal Artery Scan Pulse Rate 78 77 Pulse Rate [Right Finger] 80 Pulse Rhythm [Right Finger] Regular Pulse Strength [Right Finger] Normal Respiratory Rate 16 22 Respiratory Effort / Characteristics Non-Labored Spontaneous Non-Labored Respiratory Depth Normal Normal Respiratory Pattern Regular Blood Pressure 96/60 L Blood Pressure [Left Arm] 84/50 L Blood Pressure [Right Arm] Blood Pressure Mean 72 Blood Pressure Mean [Left Arm] 61 Blood Pressure Mean [Right Arm] Blood Pressure Position [Left Arm] Lying Blood Pressure Position [Right Arm] Pulse Oximetry 93 94 Oxygen Delivery Method Room Air Room Air Sepsis Recent Fever Within 48 Hours No Sepsis New/Unexplained Change in Mental Status No Sepsis Action Taken by Nursing No Action Required 02/03/25 19:00 02/03/25 19:03 02/03/25 20:12 Temperature Temperature Source Pulse Rate Pulse Rate [Right Finger] 76 69 Pulse Rhythm [Right Finger] Regular Regular Pulse Strength [Right Finger] Normal Normal Respiratory Rate 24 23 Respiratory Effort / Characteristics Non-Labored Non-Labored Respiratory Depth Normal Normal Respiratory Pattern Regular Regular Blood Pressure Blood Pressure [Left Arm] 92/67 L Blood Pressure [Right Arm] Blood Pressure Mean Blood Pressure Mean [Left Arm] 75 Blood Pressure Mean [Right Arm] Blood Pressure Position [Left Arm] Lying Blood Pressure Position [Right Arm] Pulse Oximetry 94 94 97 Oxygen Delivery Method Room Air Room Air Room Air Sepsis Recent Fever Within 48 Hours Sepsis New/Unexplained Change in Mental Status Sepsis Action Taken by Nursing 02/03/25 20:30 02/03/25 20:30 02/03/25 21:16 Temperature Temperature Source Pulse Rate Pulse Rate [Right Finger] 68 78 84 Pulse Rhythm [Right Finger] Regular Regular Regular Pulse Strength [Right Finger] Normal Normal Normal Respiratory Rate 21 22 22 Respiratory Effort / Characteristics Non-Labored Non-Labored Non-Labored Respiratory Depth Normal Normal Normal Respiratory Pattern Regular Regular Regular Blood Pressure Blood Pressure [Left Arm] Blood Pressure [Right Arm] 145/78 H 139/75 Blood Pressure Mean Blood Pressure Mean [Left Arm] Blood Pressure Mean [Right Arm] 100 96 Blood Pressure Position [Left Arm] Blood Pressure Position [Right Arm] Lying Lying Pulse Oximetry 94 94 93 Oxygen Delivery Method Room Air Room Air Room Air Sepsis Recent Fever Within 48 Hours Sepsis New/Unexplained Change in Mental Status Sepsis Action Taken by Nursing Laboratory Data 02/03/25 19:19 02/03/25 19:19 Lab Results 02/03/25 02/03/25 02/03/25 Range/Units 19:19 19:26 20:28 WBC 4.94 (4.8-10.8) K/ul RBC 3.19 L (4.20-5.40) M/uL Hgb 10.6 L (12.0-16.0) g/dl POC Hgb 10.5 L (12.0-16.0) g/dl Hct 31.7 L (37.0-47.0) % POC Hct 31 L (37-47) % MCV 99.4 (80.0-100.0) fL MCH 33.2 (25.0-34.0) pg MCHC 33.4 (32.0-36.0) g/dL RDW Std Deviation 45.7 (36.4-46.3) fL RDW Coeff of Arturo 12.5 (11.5-14.5) % Plt Count 223 (130-400) K/uL MPV 9.1 L (9.4-12.4) fL Immature Gran % (Auto) 0.2 % Neut % (Auto) 55.9 % Lymph % (Auto) 32.8 % [place] % (Auto) 9.1 % Eos % (Auto) 1.4 % Baso % (Auto) 0.6 % Neut # (Auto) 2.76 (1.40-6.50) K/uL Lymph # (Auto) 1.62 (1.20-3.40) K/uL [place] # (Auto) 0.45 (0.11-0.59) K/uL Eos # (Auto) 0.07 (0.00-0.50) K/uL Baso # (Auto) 0.03 (0.00-0.20) K/uL Immature Gran # (Auto) 0.01 (0.01-0.20) K/uL POC Sodium 142 (135-144) mmol/L Sodium 140 (136-145) mmol/L POC Potassium 3.9 (3.3-5.0) mmol/L Potassium 4.0 (3.5-5.1) mmol/L POC Chloride 107 (101-112) mmol/L Chloride 109 H (98-107) mmol/L Carbon Dioxide 28 (21-32) mmol/L POC Total CO2 22 L (24-31) mmol/L Anion Gap 3 (3-11) POC Anion Gap 17.0 (16-25) mmol/L POC BUN 17 (7-18) mg/dl BUN 16 (6-23) mg/dl Creatinine 0.94 (0.6-1.2) mg/dl POC Creatinine 1.0 (0.6-1.3) mg/dl Est Cr Clr Drug Dosing 31.1 ml/min eGFR 59.83 BUN/Creatinine Ratio 17.0 (10-20) Glucose 87 (70-99(Fasting)) mg/dl POC Glucose (other) 89 (70-99) mg/dl Calcium 8.8 (8.6-10.3) mg/dl POC Ioniz Calcium Wilfrid 1.18 (1.12-1.32) mmol/l Total Bilirubin 0.4 (0.2-1.0) mg/dl AST 13 (13-39) U/L ALT < 3 L (7-52) U/L Alkaline Phosphatase 41 (34-104) U/L Troponin I High Sens < 2.3 (0-14) pg/ml Total Protein 6.2 (6.0-8.3) gm/dl Albumin 3.9 (3.4-5.0) gm/dl Globulin 2.3 L (2.5-4.0) gm/dl Albumin/Globulin Ratio 1.7 (0.9-2) Lipase 33 (11-82) U/L Urine Color Yellow Urine Appearance Cloudy A (Clear) Urine pH 5.5 (4.5-7.5) Ur Specific [place] > 1.045 H (1.000-1.030) Urine Protein Trace H (Negative) Urine Glucose (UA) Negative (Negative) Urine Ketones Trace H (Negative) Urine Blood Negative (Negative) Urine Nitrite Positive A (Negative) Urine Bilirubin Negative (Negative) Urine Urobilinogen Negative (Negative) Ur Leukocyte Esterase 2+ H (Negative) Urine WBC (Auto) >50 H (0-5) /hpf Urine RBC (Auto) 6-10 H (0-2) /hpf U Hyaline Cast (Auto) 0-2 (0-2) /lpf U Epithel Cells (Auto) 6-10 H (0-2) /hpf Urine Bacteria (Auto) 4+ H (None Seen) Administered Medications Acetaminophen (Acetaminophen 325 Mg Tab) 650 mg PO Q4H PRN PRN Reason: pain/fever Stop: 03/05/25 21:51 Last Admin: 02/03/25 22:22 Dose: 650 mg Documented By: SHB Sodium Chloride (Nss) 1,000 mls @ 80 mls/hr IV .[id number] MARQUIS Stop: 02/04/25 10:29 Last Admin: 02/03/25 22:23 Dose: 80 mls/hr Documented By: DANA Discontinued Medications Sodium Chloride (Nss) 1,000 mls @ 999 mls/hr IV .Q1H1M ONE Stop: 02/03/25 19:47 Last Infusion: 02/03/25 21:48 Dose: Infused Documented By: Admin: 02/03/25 19:20 Dose: 999 mls/hr Documented By: DANA Ceftriaxone Sodium (Rocephin) 2,000 mg in 50 mls @ 100 mls/hr IV NOW STA Stop: 02/03/25 21:59 Last Infusion: 02/03/25 22:12 Dose: Infused Documented By: Admin: 02/03/25 21:38 Dose: 100 mls/hr Documented By: DANA Ioversol (Optiray 320 100ml) 93 ml IV ONCE ONE Stop: 02/03/25 19:57 Last Admin: 02/03/25 19:56 Dose: 93 ml Documented By: SINDY Imaging Data Radiologist's Impression: Abdomen/Pelvis CT 02/03/25 18:47 Exam(s): CT ABDOMEN + PELVIS With Contrast IV Amt: 93 ml opti 320 EXAM: CT Abdomen and Pelvis With Intravenous Contrast CLINICAL HISTORY: Trauma TECHNIQUE: Axial computed tomography images of the abdomen and pelvis with intravenous contrast. CTDI is 38 mGy and DLP is 546 mGy-cm. Automated exposure control was utilized for the study. A dose lowering technique was utilized adhering to the principles of ALARA. CONTRAST: Patient received 93 ml opti 320 of IV contrast COMPARISON: CT abdomen and pelvis 04/27/2022 FINDINGS: Lung bases: Unremarkable. No mass. No consolidation. ABDOMEN: Liver: Unremarkable. No mass. Gallbladder and bile ducts: Cholecystectomy. No ductal dilation. Pancreas: Unremarkable. No mass. No ductal dilation. Spleen: Unremarkable. No splenomegaly. Adrenals: Unremarkable. No mass. Kidneys and ureters: Unremarkable. No solid mass. No hydronephrosis. Stomach and bowel: Diverticulosis. No obstruction. No mucosal thickening. PELVIS: Appendix: No findings to suggest acute appendicitis. Bladder: Unremarkable. No mass. Reproductive: Hysterectomy. ABDOMEN and PELVIS: Intraperitoneal space: Unremarkable. No free air. No significant fluid collection. Bones/joints: There are degenerative changes of the spine. No acute fracture. There is levoscoliosis of the lumbar spine. No dislocation. Soft tissues: Unremarkable. Vasculature: Moderate atherosclerosis. No abdominal aortic aneurysm. Lymph nodes: Unremarkable. No enlarged lymph nodes. IMPRESSION: 1. No acute finding of the abdomen or pelvis. 2. Diverticulosis. Electronically signed by: Alondra Knott MD 02/03/25 21:[address] 02/03/25 18:47 Exam(s): CT C SPINE EXAM: CT Cervical Spine Without Intravenous Contrast CLINICAL HISTORY: Trauma. TECHNIQUE: Axial computed tomography images of the cervical spine without intravenous contrast. CTDI is 13 mGy and DLP is 570 mGy-cm. Automated exposure control was utilized for the study. A dose lowering technique was utilized adhering to the principles of ALARA. COMPARISON: No relevant prior studies available. FINDINGS: Vertebrae: There are degenerative changes throughout the cervical spine. No acute finding of the cervical spine. Discs/spinal canal/neural foramina: No acute findings. No spinal canal stenosis. Soft tissues: Unremarkable. IMPRESSION: No acute finding of the cervical spine. Electronically signed by: Alondra Knott MD 02/03/25 21:[address] 02/03/25 18:47 Exam(s): CT CHEST With Contrast IV Amt: 93 ml opti 320 EXAM: CT Chest With Intravenous Contrast CLINICAL HISTORY: Trauma. TECHNIQUE: Axial computed tomography images of the chest with intravenous contrast. CTDI is 23 mGy and DLP is 388 mGy-cm. Automated exposure control was utilized for the study. A dose lowering technique was utilized adhering to the principles of ALARA. CONTRAST: Patient received 93 ml opti 320 of IV contrast COMPARISON: No relevant prior studies available. FINDINGS: Lungs: Unremarkable. No mass. No consolidation. Pleural space: Unremarkable. No pneumothorax. No significant effusion. Heart: Coronary artery calcifications are present. No cardiomegaly. No significant pericardial effusion. Bones/joints: There are degenerative changes of the spine. No acute fracture. No dislocation. Soft tissues: Unremarkable. Vasculature: Moderate atherosclerosis. Lymph nodes: Unremarkable. No enlarged lymph nodes. IMPRESSION: No acute findings in the chest. Electronically signed by: Alondra Knott MD 02/03/25 21:17 PM Chest X-Ray 02/03/25 18:47 Chest radiograph, one view History: Chest pain Comparison: 06/17/2024 Findings: Single AP view of the chest performed. No focal consolidation or pleural effusion. No pneumothorax. The cardiomediastinal silhouette is within normal limits. Normal pulmonary vascularity. No evidence for lymphadenopathy. No visualized bony or soft tissue abnormality. Impression: Normal chest radiograph Electronically signed by Abran Boudreaux 02-03-2025 7:35 PM Forearm X-Ray 02/03/25 18:47 Study: Right forearm 3 views History: Pain Comparison: None Findings: There is no acute fracture or dislocation. Alignment is anatomic. Joint spaces are well maintained. Nonspecific soft tissue swelling is seen about the radial and dorsal aspect of the forearm. Bone mineralization is normal. Impression: No acute bony abnormality. There is soft tissue swelling Electronically signed by Abran Boudreaux 02-03-2025 7:[address] 02/03/25 18:47 Exam(s): CT HEAD Without Contrast EXAM: CT Head Without Intravenous Contrast CLINICAL HISTORY: Trauma. TECHNIQUE: Axial computed tomography images of the head/brain without intravenous contrast. CTDI is 38 mGy and DLP is 546 mGy-cm. Automated exposure control was utilized for the study. A dose lowering technique was utilized adhering to the principles of ALARA. COMPARISON: No relevant prior studies available. FINDINGS: Brain: No intracranial hemorrhage, mass-effect or midline shift. No abnormal extra axial fluid. No evidence of acute infarct. Mild periventricular white matter hypodensities are most consistent with chronic microangiopathy. Ventricles: Unremarkable. No ventriculomegaly. Bones/joints: Unremarkable. No acute fracture. Soft tissues: Unremarkable. Sinuses: Unremarkable as visualized. No acute sinusitis. Mastoid air cells: Unremarkable as visualized. No mastoid effusion. IMPRESSION: No acute intracranial finding. Electronically signed by: Alondra Knott MD 02/03/25 21:18 PM Discharge Plan Visit Data Chief Complaint: Swelling/Edema to Extremity Stated Complaint: FALL, BRUSING/SWELLING RT ARM ED Provider: Emerson Dunbar Discharge Problem: Acute hypotension, Acute UTI, Fall, Contusion of forearm Patient Disposition: Admitted As Inpatient Discharge Instructions Interventions: ED Discharge Assessment Last Done: 02/03/25 22:32 Discharge Problem: Fall Qualifiers: Encounter type: initial encounter Qualified Code(s): W19.XXXA - Unspecified fall, initial encounter Contusion of forearm Qualifiers: Encounter type: initial encounter Laterality: unspecified laterality Qualified Code(s): S50.10XA - Contusion of unspecified forearm, initial encounter
[2025-02-03] MEDS: SODIUM CHLORIDE 0.9% 1,000 ML IV ONE (19:20)
--- NOTE | 2025-02-03 19:36 | XRay Report ---
Chest radiograph, one view History: Chest pain Comparison: 06/17/2024 Findings: Single AP view of the chest performed. No focal consolidation or pleural effusion. No pneumothorax. The cardiomediastinal silhouette is within normal limits. Normal pulmonary vascularity. No evidence for lymphadenopathy. No visualized bony or soft tissue abnormality. Impression: Normal chest radiograph Electronically signed by Abran Boudreaux 02-03-2025 7:35 PM
[2025-02-03 19:38] LABS: iSTAT Hemoglobin 10.5 g/dl (12.0-16.0); iSTAT Ionized Calcium 1.18 mmol/l (1.12-1.32); iSTAT Potassium 3.9 mmol/L (3.3-5.0)
--- NOTE | 2025-02-03 19:38 | XRay Report ---
Study: Right forearm 3 views History: Pain Comparison: None Findings: There is no acute fracture or dislocation. Alignment is anatomic. Joint spaces are well maintained. Nonspecific soft tissue swelling is seen about the radial and dorsal aspect of the forearm. Bone mineralization is normal. Impression: No acute bony abnormality. There is soft tissue swelling Electronically signed by Abran Boudreaux 02-03-2025 7:38 PM
[2025-02-03 19:49] LABS: Basophils # (auto) 0.03 K/uL (0.00-0.20); Basophils % (auto) 0.6 %; Eosinophils # (auto) 0.07 K/uL (0.00-0.50); Eosinophils % (auto) 1.4 %; Hematocrit (blood only) 31.7 % (37.0-47.0); Hemoglobin 10.6 g/dl (12.0-16.0); Immature Granulocytes # (auto) 0.01 K/uL (0.01-0.20); Immature Granulocytes % (auto) 0.2 %; Lymphocytes # (auto) 1.62 K/uL (1.20-3.40); Lymphocytes % (auto) 32.8 %; Mean Corpuscular Hemoglobin 33.2 pg (25.0-34.0); Mean Corpuscular Hgb Conc 33.4 g/dL (32.0-36.0); Mean Corpuscular Volume 99.4 fL (80.0-100.0); Mean Platelet Volume 9.1 fL (9.4-12.4); Monocytes # (auto) 0.45 K/uL (0.11-0.59); Monocytes % (auto) 9.1 %; Neutrophils # (auto) 2.76 K/uL (1.40-6.50); Neutrophils % (auto) 55.9 %; Platelet Count 223 K/uL (130-400); RDW Coefficient of Variation 12.5 % (11.5-14.5); RDW Standard Deviation 45.7 fL (36.4-46.3); Red Blood Count 3.19 M/uL (4.20-5.40); White Blood Count 4.94 K/ul (4.8-10.8)
[2025-02-03 19:53] LABS: Anion Gap 3 (3-11); Blood Urea Nitrogen 16 mg/dl (6-23); Calcium 8.8 mg/dl (8.6-10.3); Carbon Dioxide 28 mmol/L (21-32); Chloride 109 mmol/L (98-107); Creatinine Clr Calc Pharmacy 31.1 ml/min; Glucose 87 mg/dl (70-99(Fasting)); Sodium 140 mmol/L (136-145)
[2025-02-03] MEDS: OPTIRAY 320 100ml IV ONE ×2 (19:56→23:02)
[2025-02-03 19:59] LABS: Troponin I High Sensitivity < 2.3 pg/ml (0-14)
[2025-02-03 20:08] LABS: Alanine Aminotransferase < 3 U/L (7-52); Albumin Globulin Ratio 1.7 (0.9-2); Albumin Level 3.9 gm/dl (3.4-5.0); Alkaline Phosphatase 41 U/L (34-104); Aspartate Aminotransferase 13 U/L (13-39); Bilirubin,Total 0.4 mg/dl (0.2-1.0); Globulin 2.3 gm/dl (2.5-4.0); Lipase 33 U/L (11-82); Total Protein 6.2 gm/dl (6.0-8.3)
[2025-02-03 21:10] LABS: Appearance Urine Cloudy (Clear); Bacteria Urine Automated 4+ (None Seen); Bilirubin Urine Negative (Negative); Blood Urine Negative (Negative); Cast Urine Automated 0-2 /lpf (0-2); Color Urine Yellow; Glucose Urine UA Negative (Negative); Ketones Urine Trace (Negative); Leukocyte Esterase Urine 2+ (Negative); Nitrite Urine Positive (Negative); Protein Urine Trace (Negative); Specific Gravity Urine > 1.045 (1.000-1.030); Urobilinogen Urine Negative (Negative); WBC Urine Automated >50 /hpf (0-5); pH Urine 5.5 (4.5-7.5)
--- NOTE | 2025-02-03 21:16 | CT Scan Report ---
Exam(s): CT ABDOMEN + PELVIS With Contrast IV Amt: 93 ml opti 320 EXAM: CT Abdomen and Pelvis With Intravenous Contrast CLINICAL HISTORY: Trauma TECHNIQUE: Axial computed tomography images of the abdomen and pelvis with intravenous contrast. CTDI is 38 mGy and DLP is 546 mGy-cm. Automated exposure control was utilized for the study. A dose lowering technique was utilized adhering to the principles of ALARA. CONTRAST: Patient received 93 ml opti 320 of IV contrast COMPARISON: CT abdomen and pelvis 04/27/2022 FINDINGS: Lung bases: Unremarkable. No mass. No consolidation. ABDOMEN: Liver: Unremarkable. No mass. Gallbladder and bile ducts: Cholecystectomy. No ductal dilation. Pancreas: Unremarkable. No mass. No ductal dilation. Spleen: Unremarkable. No splenomegaly. Adrenals: Unremarkable. No mass. Kidneys and ureters: Unremarkable. No solid mass. No hydronephrosis. Stomach and bowel: Diverticulosis. No obstruction. No mucosal thickening. PELVIS: Appendix: No findings to suggest acute appendicitis. Bladder: Unremarkable. No mass. Reproductive: Hysterectomy. ABDOMEN and PELVIS: Intraperitoneal space: Unremarkable. No free air. No significant fluid collection. Bones/joints: There are degenerative changes of the spine. No acute fracture. There is levoscoliosis of the lumbar spine. No dislocation. Soft tissues: Unremarkable. Vasculature: Moderate atherosclerosis. No abdominal aortic aneurysm. Lymph nodes: Unremarkable. No enlarged lymph nodes. IMPRESSION: 1. No acute finding of the abdomen or pelvis. 2. Diverticulosis. Electronically signed by: Alondra Knott MD 02/03/25 21:15 PM
--- NOTE | 2025-02-03 21:17 | CT Scan Report ---
Exam(s): CT C SPINE EXAM: CT Cervical Spine Without Intravenous Contrast CLINICAL HISTORY: Trauma. TECHNIQUE: Axial computed tomography images of the cervical spine without intravenous contrast. CTDI is 13 mGy and DLP is 570 mGy-cm. Automated exposure control was utilized for the study. A dose lowering technique was utilized adhering to the principles of ALARA. COMPARISON: No relevant prior studies available. FINDINGS: Vertebrae: There are degenerative changes throughout the cervical spine. No acute finding of the cervical spine. Discs/spinal canal/neural foramina: No acute findings. No spinal canal stenosis. Soft tissues: Unremarkable. IMPRESSION: No acute finding of the cervical spine. Electronically signed by: Alondra Knott MD 02/03/25 21:16 PM
--- NOTE | 2025-02-03 21:18 | CT Scan Report ---
Exam(s): CT HEAD Without Contrast EXAM: CT Head Without Intravenous Contrast CLINICAL HISTORY: Trauma. TECHNIQUE: Axial computed tomography images of the head/brain without intravenous contrast. CTDI is 38 mGy and DLP is 546 mGy-cm. Automated exposure control was utilized for the study. A dose lowering technique was utilized adhering to the principles of ALARA. COMPARISON: No relevant prior studies available. FINDINGS: Brain: No intracranial hemorrhage, mass-effect or midline shift. No abnormal extra axial fluid. No evidence of acute infarct. Mild periventricular white matter hypodensities are most consistent with chronic microangiopathy. Ventricles: Unremarkable. No ventriculomegaly. Bones/joints: Unremarkable. No acute fracture. Soft tissues: Unremarkable. Sinuses: Unremarkable as visualized. No acute sinusitis. Mastoid air cells: Unremarkable as visualized. No mastoid effusion. IMPRESSION: No acute intracranial finding. Electronically signed by: Alondra Knott MD 02/03/25 21:18 PM
--- NOTE | 2025-02-03 21:18 | CT Scan Report ---
Exam(s): CT CHEST With Contrast IV Amt: 93 ml opti 320 EXAM: CT Chest With Intravenous Contrast CLINICAL HISTORY: Trauma. TECHNIQUE: Axial computed tomography images of the chest with intravenous contrast. CTDI is 23 mGy and DLP is 388 mGy-cm. Automated exposure control was utilized for the study. A dose lowering technique was utilized adhering to the principles of ALARA. CONTRAST: Patient received 93 ml opti 320 of IV contrast COMPARISON: No relevant prior studies available. FINDINGS: Lungs: Unremarkable. No mass. No consolidation. Pleural space: Unremarkable. No pneumothorax. No significant effusion. Heart: Coronary artery calcifications are present. No cardiomegaly. No significant pericardial effusion. Bones/joints: There are degenerative changes of the spine. No acute fracture. No dislocation. Soft tissues: Unremarkable. Vasculature: Moderate atherosclerosis. Lymph nodes: Unremarkable. No enlarged lymph nodes. IMPRESSION: No acute findings in the chest. Electronically signed by: Alondra Knott MD 02/03/25 21:17 PM
[2025-02-03] MEDS: cefTRIAXone SODIUM 2,000 MG/50 ML BAG IV STA (21:38)
[2025-02-03] MEDS ORDERED: ALBUTEROL HFA 8 GM INHALER INH PRN (21:50)
[2025-02-03] MEDS ORDERED: NON-FORMULARY MEDICATION (Diphenhydramine-Acetaminophen [Tylenol Pm Extra Strength] 25-500 PO PRN (21:50)
[2025-02-03] MEDS ORDERED: POLYETHYLENE (MIRALAX) 17 GM PACK PO PRN (21:52)
[2025-02-03] MEDS ORDERED: MAGNESIUM HYDROXIDE SUSP 30 ML UDC PO PRN (21:52)
--- NOTE | 2025-02-03 21:58 | History & Physical Report ---
Date of Service February 03, 2025 Assessment & Plan (1) Fall: (2) UTI (urinary tract infection): Plan Assessment/plan Mechanical fall Possible hematoma on right forearm Acute UTI Patient presents to the hospital with mechanical fall Hypertensive on arrival to the ED Urinalysis positive for infection CT head, CT cervical spine, CT chest, CT abdomen pelvis did not show any acute finding Obtain CT of the right forearm to better evaluate swelling for possible hematoma; Discussed with radiology if images of the forearm could be better visualized from her previous CT scans done in the ED To avoid more contrast use Continue on ceftriaxone; follow-up on final culture results. 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 Hyperparathyroidismcalcium within normal limits; follows up with endocrinology DNR/DNI DVT prophylaxisEliquis on hold for possible hematoma on right forearm; resume as soon as possible Time spent evaluating patient, direct bedside care, chart review, placing orders, interpretation of diagnostic studies, discussion with consultants, patient, and family members, as well as other required patient management act ivities is 75 minutes Please note the above document was generated using voice recognition software. It may contain grammatical, syntax or spelling errors. Any formal questions or concerns about the content, text or information contained within the body of this dictation should be directly addressed to the provider for clarification History of Present Illness Chief Complaint: Fall Primary Care Provider: Vika Castellanos DO History obtained from chart review, interview with the patient and discussion with ED provider Past medical history of hypothyroidism, hyperlipidemia, history of recurrent PE, subclavian arterial stenosis, GERD, osteoporosis, Parkinson's disease, anxiety, hyperparathyroidism Last admission was in June 2024 with chest pain; was evaluated by cardiology and was treated for UTI. Patient presents to the hospital with mechanical fall. Patient reported getting out of bed to take her medication around 7 AM in the morning and fell. She fell on her head and her right arm. She denies any loss of consciousness. She noticed swelling and bruising on her right forearm was increasing which prompted her to come to the ED. She denies dizziness, visual disturbances, weakness/numbness of any body part, chest pain, shortness of breath, abdominal pain. On presentation to the ED, she was hypotensive, afebrile and saturating well in room air. Patient underwent CT head, CT cervical spine, CT chest, abdominal CT, forearm x-ray which did not show any acute findings. Urinalysis was positive for infection. No leukocytosis. Hemoglobin around 10.6 symptoms similar to her previous lab work. Patient was given IV fluids for hypotension. She was also given 1 dose of ceftriaxone; referred for admission Allergies Allergy/AdvReac Type Severity Reaction Status Date / Time Sulfa (Sulfonamide Allergy Severe AIRWAY Verified 02/03/25 21:01 Antibiotics) EDEMA, Shortness of Breath, Rash tolterodine AdvReac Severe AIRWAY Verified 02/03/25 21:01 EDEMA cyclobenzaprine AdvReac Intermediate WORSENS Verified 02/03/25 21:01 RLS, "HEART POUNDS". famotidine AdvReac Intermediate Gastrointestinal Verified 02/03/25 21:01 Upset erythromycin base AdvReac Mild Drowsy Verified 02/03/25 21:01 nitroglycerin AdvReac Mild Headache Verified 02/03/25 21:01 Home Medications Medication Instructions Recorded Confirmed Type carbidopa 25 mg-levodopa 100 mg 1 tab PO TID 03/02/19 02/03/25 History tablet levothyroxine 50 mcg tablet 50 mcg PO DAILYBB 03/02/19 02/03/25 History montelukast 10 mg tablet 10 mg PO QAM 03/02/19 02/03/25 History ropinirole 1 mg tablet 1 mg PO HS 03/02/19 02/03/25 History ondansetron HCl 4 mg tablet 4 mg PO BID 10/14/20 02/03/25 History gabapentin 300 mg capsule 300 mg PO BID 10/15/20 02/03/25 History potassium chloride 10 mEq 10 meq PO QAM 05/12/21 02/03/25 History tablet,extended release(part/cryst) (Klor-Con M) diphenhydramine 25 1 tab PO HS PRN Sleep 06/23/22 02/03/25 History mg-acetaminophen 500 mg tablet (Tylenol PM Extra Strength) apixaban 5 mg tablet (Eliquis) 5 mg PO BID 01/09/23 02/03/25 History lisinopril 2.5 mg tablet 2.5 mg PO DAILY #30 tabs 01/11/23 02/03/25 Rx acetaminophen 325 mg tablet 325 - 650 mg PO DIRECTED PRN 06/17/24 02/03/25 History (Tylenol) PAIN/FEVER atropine 1 % eye drops 1 - 2 drp sublingual DIRECTED 06/17/24 02/03/25 History PRN DROOLING calcium carbonate 500 mg PO DAILY 06/17/24 02/03/25 History cholecalciferol (vitamin D3) 125 125 mcg PO DAILY 06/17/24 02/03/25 History mcg (5,000 unit) tablet (Vitamin D3) escitalopram oxalate 10 mg tablet 10 mg PO DAILY 06/17/24 02/03/25 History lorazepam 0.5 mg tablet 0.5 mg PO BID PRN ANXIETY/INSOMNIA 06/17/24 02/03/25 History omeprazole 40 mg capsule,delayed 40 mg PO QAM 06/17/24 02/03/25 History release ferrous sulfate 325 mg (65 mg 325 mg PO QAM #30 tabs 06/20/24 02/03/25 Rx iron) tablet,delayed release folic acid 1 mg tablet 1 mg PO QAM #30 tabs 06/20/24 02/03/25 Rx albuterol sulfate 90 mcg/actuation 2 puff inhalation Q6H PRN 02/03/25 02/03/25 History aerosol inhaler COUGH/CHEST CONGESTION fluticasone propionate 50 2 spray intranasal DAILY 02/03/25 02/03/25 History mcg/actuation nasal spray,suspension tizanidine 2 mg tablet 2 mg PO BID 02/03/25 02/03/25 History Past Med/Surg History Problem List (Updated 02/03/25 @ 21:57 by Ryan Barraza MD) UTI (urinary tract infection) Chest pain Vitamin D deficiency Osteoporosis Height loss Hyperparathyroidism Gastroparesis Dysphagia Hypertension (Acute) Acute electrocardiogram changes (Acute) Pulmonary emboli (Acute) Parkinson disease Acute pulmonary embolism Hypothyroidism (Chronic) Anxiety (Chronic) Osteoarthritis (Chronic) Depression (Chronic) GERD (gastroesophageal reflux disease) (Chronic) Hyperlipidemia (Chronic) Medical History Lung nodule Mitral valve prolapse No significant family history Hypothyroidism Hyperlipidemia GERD (gastroesophageal reflux disease) Thoracic radiculopathy Cerebral vascular disease Surgical History S/P cholecystectomy S/P hysterectomy Status post arthroscopy of shoulder Previous back surgery S/P cholecystectomy S/P hysterectomy Family History Other Heart disease Parkinson disease Social History Smoking Status: Former smoker Cigarettes Per Day: 1 ppd for 20yr quit in 1979; Second Hand Exposure: No; Do You Dip or Chew Tobacco: No; Hx Alcohol Use: No Hx Substance Use: No Preferred Language: Yi Communication Ability: Effective Bridal Gown Fitter Required: No Beliefs That Will Affect Care: None marital status: / Current Living Situation: Alone Current Living Situation Comment: son lives across street Feels Safe at Home: Yes Assistive Devices: Cane and Walker Review of Systems Review of Systems: All systems reviewed & are unremarkable except as noted in Subjective Physical Exam Physical Exam: On physical examination; Constitutional: WD/WN, vitals as above, NAD, sitting up in bed, pleasant, conversing easily Respiratory: normal respiratory effort, lungs clear to auscultation, no wheeze, rales, rhonchi. Normal insp/exp effort, no accessory muscle use Cardiovascular: RRR, no murmur, no edema Vessels: no JVD or carotid bruit Chest: normal inspection of chest Abdomen: normal bowel sounds, soft, nontender, no hepatosplenomegaly Musculoskeletal: Right forearm has a swelling with overlying ecchymosis; nonpulsatile. Slightly tender. Neurologic: PERRL, EOMI, accommodation nl, no face palsy, no dysarthria CN's II- XI intact bilaterally and moves all extremities Psychiatric: A+Ox3, euthymic affect Results & Data Results & Data Vital Signs (Past 12 Hours) Vital Signs Temp Pulse Pulse Resp BP BP BP 02/03/25 21:16 84 22 139/75 02/03/25 20:30 78 22 02/03/25 20:30 68 21 145/78 H 02/03/25 20:12 69 23 92/67 L 02/03/25 19:03 76 24 02/03/25 19:00 02/03/25 19:00 80 22 84/50 L 02/03/25 18:57 77 02/03/25 18:33 36.7 C 78 16 96/60 L Pulse Ox O2 Del Method 02/03/25 21:16 93 Room Air 02/03/25 20:30 94 Room Air 02/03/25 20:30 94 Room Air 02/03/25 20:12 97 Room Air 02/03/25 19:03 94 Room Air 02/03/25 19:00 94 Room Air 02/03/25 19:00 94 Room Air 02/03/25 18:57 02/03/25 18:33 93 Room Air Code Status & VTE Plan VTE Prophylaxis Plan VTE Prophylaxis will be ordered: No (1) Fall Encounter type: initial encounter Qualified Code(s): W19.XXXA - Unspecified fall, initial encounter
[2025-02-03] MEDS ORDERED: diphenhydrAMINE Capsule 25 MG CAP PO PRN (22:03)
[2025-02-03] MEDS ORDERED: ACETAMINOPHEN 500 MG TAB PO PRN (22:04)
[2025-02-03] MEDS ORDERED: GABAPENTIN 300 MG CAP PO SCH (22:15)
[2025-02-03] MEDS: ACETAMINOPHEN 325 MG TAB PO PRN (22:22)
[2025-02-03] MEDS: SODIUM CHLORIDE 0.9% 1,000 ML IV SCH (22:23)
[2025-02-03] MEDS: tiZANidine HCL 4 MG TABLET PO SCH (23:24)
[2025-02-03] MEDS: ESCITALOPRAM OXALATE 10 MG TAB PO SCH (23:25)
[2025-02-03] MEDS: GABAPENTIN 300 MG CAP PO SCH (23:25)
[2025-02-03] MEDS: LORazepam 0.5 MG TAB PO PRN (23:25)
[2025-02-03] MEDS: rOPINIRole HCL 1 MG TABLET PO SCH (23:56)
--- NOTE | 2025-02-04 00:16 | CT Scan Report ---
Exam(s): CT EXTREMITY RIGHT UPPER With Contrast IV Amt: 93 ML OPTIRAY 320 EXAM: CT Right Upper Extremity With Intravenous Contrast CLINICAL HISTORY: Rule out hematoma. TECHNIQUE: Axial computed tomography images of the right upper extremity with intravenous contrast. CTDI is 20.39 mGy and DLP is 637.98 mGy-cm. Automated exposure control was utilized for the study. A dose lowering technique was utilized adhering to the principles of ALARA. CONTRAST: Patient received 93 ML OPTIRAY 320 of IV contrast COMPARISON: No relevant prior studies available. FINDINGS: Bones/joints: Unremarkable. No acute fracture. No dislocation. Soft tissues: There is a 2.6 x 1.9 x 3.8 cm hematoma of the lateral proximal forearm with a small amount of active bleeding. Contusions of the forearm are also noted. IMPRESSION: There is a 2.6 x 1.9 x 3.8 cm hematoma of the lateral proximal forearm with a small amount of active bleeding. Communications: Verify Receipt Electronically signed by: Alondra Knott MD 02/04/25 00:15 AM
[2025-02-04] MEDS: LEVOTHYROXINE SODIUM 50 MCG TABLET PO SCH (05:45)
[2025-02-04] MEDS: CARBIDOPA/LEVODOPA 25/100MG TAB PO SCH (05:45)
[2025-02-04] MEDS: CALCIUM CARBONATE 1250MG TAB PO SCH (08:10)
[2025-02-04] MEDS: CHOLECALCIFEROL 125 MCG (5,000 UNITS) TAB PO SCH (08:11)
[2025-02-04] MEDS: FOLIC ACID 1 MG TAB PO SCH (08:12)
[2025-02-04] MEDS: PANTOprazole 40 MG TAB PO SCH (08:12)
[2025-02-04] MEDS: FERROUS SULFATE 325 MG TAB PO SCH (08:12)
[2025-02-04] MEDS: FLUTICASONE PROPIONATE NA SPR 16 GM BTL SCH (08:13)
[2025-02-04] MEDS: MONTELUKAST SODIUM 10 MG TABLET PO SCH (08:14)
[2025-02-04] MEDS: POTASSIUM CHLORIDE 10 MEQ TABCR PO SCH (08:17)
[2025-02-04 08:20] LABS: Basophils # (auto) 0.04 K/uL (0.00-0.20); Eosinophils % (auto) 2.5 %; Hematocrit (blood only) 30.8 % (37.0-47.0); Hemoglobin 10.5 g/dl (12.0-16.0); Immature Granulocytes # (auto) 0.01 K/uL (0.01-0.20); Immature Granulocytes % (auto) 0.3 %; Lymphocytes # (auto) 1.21 K/uL (1.20-3.40); Lymphocytes % (auto) 30.5 %; Mean Corpuscular Hemoglobin 33.5 pg (25.0-34.0); Mean Corpuscular Hgb Conc 34.1 g/dL (32.0-36.0); Mean Corpuscular Volume 98.4 fL (80.0-100.0); Mean Platelet Volume 9.1 fL (9.4-12.4); Monocytes # (auto) 0.33 K/uL (0.11-0.59); Monocytes % (auto) 8.3 %; Neutrophils # (auto) 2.28 K/uL (1.40-6.50); Neutrophils % (auto) 57.4 %; Platelet Count 192 K/uL (130-400); RDW Coefficient of Variation 12.4 % (11.5-14.5); Red Blood Count 3.13 M/uL (4.20-5.40); White Blood Count 3.97 K/ul (4.8-10.8)
[2025-02-04 08:34] LABS: Anion Gap 4 (3-11); BUN Creatinine Ratio 19.7 (10-20); Blood Urea Nitrogen 13 mg/dl (6-23); Calcium 7.7 mg/dl (8.6-10.3); Carbon Dioxide 23 mmol/L (21-32); Chloride 112 mmol/L (98-107); Creatinine Clr Calc Pharmacy 44.7 ml/min; Glucose 83 mg/dl (70-99(Fasting)); Potassium 3.9 mmol/L (3.5-5.1); Sodium 139 mmol/L (136-145)
[2025-02-04 08:39] LABS: Alanine Aminotransferase < 3 U/L (7-52); Albumin Globulin Ratio 1.7 (0.9-2); Albumin Level 3.4 gm/dl (3.4-5.0); Alkaline Phosphatase 40 U/L (34-104); Aspartate Aminotransferase 10 U/L (13-39); Bilirubin,Total 0.5 mg/dl (0.2-1.0); Total Protein 5.4 gm/dl (6.0-8.3)
[2025-02-04] MEDS ORDERED: GABAPENTIN 300 MG CAP PO SCH (09:00)
[2025-02-04] MEDS ORDERED: ESCITALOPRAM OXALATE 10 MG TAB PO SCH (09:00)
[2025-02-04] MEDS ORDERED: CARBIDOPA/LEVODOPA 25/100MG TAB PO SCH (09:00)
--- NOTE | 2025-02-04 09:05 | Electrocardiogram Report ---
Test Reason : Blood Pressure : */* mmHG Vent. Rate : 72 BPM Atrial Rate : 72 BPM P-R Int : 200 ms QRS Dur : 80 ms QT Int : 414 ms P-R-T Axes : 45 50 62 degrees QTcB Int : 453 ms Normal sinus rhythm Normal ECG When compared with ECG of 19-Jun-2024 07:52, No significant change was found Confirmed by Judson Webb ([id number]) on 02/04/2025 9:05:26 AM Referred By: REFERRED SELF Confirmed By: Judson Webb
--- NOTE | 2025-02-04 15:22 | Hospitalist Progress Note ---
Date of Service February 04, 2025 Assessment & Plan (1) Fall: (2) UTI (urinary tract infection): Plan Mechanical fall Hematoma on right forearm--POA Secondary to fall, in setting of chronic anticoagulation with Eliquis Patient presents to the hospital with mechanical fall --Forearm CT: There is a 2.6 x 1.9 x 3.8 cm hematoma of the lateral proximal forearm with a small amount of active bleeding. --CT head, CT neck showed no acute process --CT abdomen showed diverticulosis but otherwise no acute process Monitor H&H and transfuse as needed Continue 2.5 elevation of upper extremity, apply Ice Eliquis on hold Fall precautions PT OT isabella was able Monitor H&H and transfuse as needed UTI H/O recurrent UTIs Urine culture pending Empirically on Rocephin H/o Parkinson'scontinue on carbidopa levodopa; Reports that she takes it twice daily( morning and afternoon) instead of 3 times daily GERD/dysphagia Continue PPI Currently tolerating diet H/O recurrent PE on Eliquis Eliquis held due to hematoma as above Plan to resume Eliquis in 1 to 2 days if hemoglobin stable Restless leg syndromecontinue on ropinirole Orofacial dyskinesia test on atropine drops for drooling Mood disorder continue on Lexapro and Ativan as needed Hypothyroidism continue levothyroxine Hypertension Continue lisinopril Hyperparathyroidism calcium within normal limits; follows up with endocrinology DVT Px: Eliquis on hold for right upper extremity hematoma CODE STATUS DNR/DNI Disposition PT OT prior to discharge Admission and Anticipated Discharge Date Admission Date: February 03, 2025 Subjective Patient is seen and examined at bedside States having right upper extremity swelling associated with some pain Eager to get discharged Denies any dysuria, hematuria, chest pain, dyspnea, dizziness Review of Systems Review of Systems: All systems reviewed & are unremarkable except as noted in Subjective Physical Exam Physical Exam: Physical Exam: Vitals signs as noted above General Appearance:Moderately built and nourished, no apparent distress, elderly Head: normocephalic, Atraumatic Eyes: normal inspection, EOMI Neck: supple, Trachea midline Respiratory/Chest: Normal breath sounds, CTA, No accessory muscle use Cardiovascular: S1, S2, No murmur Abdomen/GI:Soft, Non tender, Bowel sounds present Extremities/Musculoskeletal:normal inspection, no edema, RUE hematoma, ecchymosis, mild tenderness Neurologic/Psych:AAOX3, grossly no focal neurological deficits Skin: normal color, warm Results & Data Results & Data Vital Signs (Past 12 Hours) Vital Signs Temp Pulse Resp BP Pulse Ox O2 Del Method 02/04/25 15:08 36.5 C 73 16 165/81 H 99 Room Air 02/04/25 08:15 Room Air 02/04/25 07:21 36.5 C 75 16 149/61 H 96 Room Air Laboratory Results Short CBC 02/03/25 02/04/25 Range/Units 19:19 07:47 WBC 4.94 3.97 L (4.8-10.8) K/ul Hgb 10.6 L 10.5 L (12.0-16.0) g/dl Hct 31.7 L 30.8 L (37.0-47.0) % Plt Count 223 192 (130-400) K/uL BMP 02/03/25 02/04/25 19:19 07:47 Sodium 140 139 Potassium 4.0 3.9 Chloride 109 H 112 H Carbon Dioxide 28 23 BUN 16 13 Creatinine 0.94 0.66 Glucose 87 83 Calcium 8.8 7.7 L Liver Function 02/03/25 02/04/25 Range/Units 19:19 07:47 Total Bilirubin 0.4 0.5 (0.2-1.0) mg/dl AST 13 10 L (13-39) U/L ALT < 3 L < 3 L (7-52) U/L Alkaline Phosphatase 41 40 (34-104) U/L Albumin 3.9 3.4 (3.4-5.0) gm/dl Urine 02/03/25 Range/Units 20:28 Urine Color Yellow Urine Appearance Cloudy A (Clear) Urine pH 5.5 (4.5-7.5) Ur Specific [place] > 1.045 H (1.000-1.030) Urine Protein Trace H (Negative) Urine Glucose (UA) Negative (Negative) (1) Fall Encounter type: initial encounter Qualified Code(s): W19.XXXA - Unspecified fall, initial encounter
[2025-02-04] MEDS ORDERED: rOPINIRole HCL 1 MG TABLET PO SCH (21:00)
[2025-02-04] MEDS: ONDANSETRON 4 MG OD TAB PO SCH (21:14)
[2025-02-04] MEDS: cefTRIAXone SODIUM 2,000 MG/50 ML BAG IV SCH (21:23)
[2025-02-05] MEDS: lisinopril 2.5 MG TAB PO SCH (09:01)
--- NOTE | 2025-02-05 16:58 | Hospitalist Progress Note ---
Date of Service February 05, 2025 Assessment & Plan (1) Fall: (2) UTI (urinary tract infection): Plan Mechanical fall Hematoma on right forearm--POA Secondary to fall, in setting of chronic anticoagulation with Eliquis Patient presents to the hospital with mechanical fall --Forearm CT: There is a 2.6 x 1.9 x 3.8 cm hematoma of the lateral proximal forearm with a small amount of active bleeding. --CT head, CT neck showed no acute process --CT abdomen showed diverticulosis but otherwise no acute process Monitor H&H and transfuse as needed Continue 2.5 elevation of upper extremity, apply Ice Eliquis on hold Fall precautions Monitor H&H and transfuse as needed Hematoma improving PT OT recommends home with home health Likely discharge tomorrow UTI H/O recurrent UTIs Urine culture pulmonary growing Klebsiella Empirically on Rocephin Titrate antibiotics based on sensitivities H/o Parkinson'scontinue on carbidopa levodopa; Reports that she takes it twice daily( morning and afternoon) instead of 3 times daily GERD/dysphagia Continue PPI Currently tolerating diet H/O recurrent PE on Eliquis Eliquis held due to hematoma as above Plan to resume Eliquis in 1 to 2 days if hemoglobin stable Restless leg syndromecontinue on ropinirole Orofacial dyskinesia test on atropine drops for drooling Mood disorder continue on Lexapro and Ativan as needed Hypothyroidism continue levothyroxine Hypertension Continue lisinopril Hyperparathyroidism calcium within normal limits; follows up with endocrinology DVT Px: Eliquis on hold for right upper extremity hematoma CODE STATUS DNR/DNI Disposition Home with home health likely tomorrow Admission and Anticipated Discharge Date Admission Date: February 03, 2025 Subjective Patient is seen and examined at bedside No new complaints today Right upper extremity hematoma seems to be improving Prefers to be discharged home today Urine culture pending Denies any dysuria, hematuria, chest pain, dyspnea, dizziness Review of Systems Review of Systems: All systems reviewed & are unremarkable except as noted in Subjective Physical Exam Physical Exam: Physical Exam: Vitals signs as noted above General Appearance:Moderately built and nourished, no apparent distress, elderly Head: normocephalic, Atraumatic Eyes: normal inspection, EOMI Neck: supple, Trachea midline Respiratory/Chest: Normal breath sounds, CTA, No accessory muscle use Cardiovascular: S1, S2, No murmur Abdomen/GI:Soft, Non tender, Bowel sounds present Extremities/Musculoskeletal:normal inspection, no edema, RUE hematoma, ecchymosis improving Neurologic/Psych:AAOX3, grossly no focal neurological deficits Skin: normal color, warm Results & Data Results & Data Vital Signs (Past 12 Hours) Vital Signs Temp Pulse Resp BP Pulse Ox O2 Del Method 02/05/25 14:40 36.5 C 76 16 158/83 H 98 Room Air 02/05/25 07:41 36.7 C 83 16 155/68 H 92 Room Air (1) Fall Encounter type: initial encounter Qualified Code(s): W19.XXXA - Unspecified fall, initial encounter
[2025-02-05] MEDS: ATROPINE SULFATE 1% OP SOLN 5 ML BTL SL PRN (21:53)
--- NOTE | 2025-02-06 14:16 | Hospitalist Progress Note ---
Date of Service February 06, 2025 Assessment & Plan (1) Fall: (2) UTI (urinary tract infection): Plan Mechanical fall Hematoma on right forearm--POA Secondary to fall, in setting of chronic anticoagulation with Eliquis Patient presents to the hospital with mechanical fall --Forearm CT: There is a 2.6 x 1.9 x 3.8 cm hematoma of the lateral proximal forearm with a small amount of active bleeding. --CT head, CT neck showed no acute process --CT abdomen showed diverticulosis but otherwise no acute process Monitor H&H and transfuse as needed Continue 2.5 elevation of upper extremity, apply Ice Eliquis on hold Fall precautions Monitor H&H and transfuse as needed Hematoma improving PT OT recommends home with home health Discharge home today UTI H/O recurrent UTIs Urine culture pulmonary growing Klebsiella Empirically on Rocephin>> transition to oral antibiotics to complete the course H/o Parkinson'scontinue on carbidopa levodopa; Reports that she takes it twice daily( morning and afternoon) instead of 3 times daily GERD/dysphagia Continue PPI Currently tolerating diet H/O recurrent PE on Eliquis Eliquis held due to hematoma as above Plan to resume Eliquis in 1 to 2 days if hemoglobin stable Restless leg syndromecontinue on ropinirole Orofacial dyskinesia test on atropine drops for drooling Mood disorder continue on Lexapro and Ativan as needed Hypothyroidism continue levothyroxine Hypertension Continue lisinopril Hyperparathyroidism calcium within normal limits; follows up with endocrinology DVT Px: Eliquis on hold for right upper extremity hematoma CODE STATUS DNR/DNI Disposition Home with home health Admission and Anticipated Discharge Date Admission Date: February 03, 2025 Subjective Patient is seen and examined at bedside States feeling well today Eager to get discharged Right upper extremity hematoma continues to improve Denies any dysuria, hematuria, chest pain, dyspnea, dizziness Plan to discharge home today Review of Systems Review of Systems: All systems reviewed & are unremarkable except as noted in Subjective Physical Exam Physical Exam: Physical Exam: Vitals signs as noted above General Appearance:Moderately built and nourished, no apparent distress, elderly Head: normocephalic, Atraumatic Eyes: normal inspection, EOMI Neck: supple, Trachea midline Respiratory/Chest: Normal breath sounds, CTA, No accessory muscle use Cardiovascular: S1, S2, No murmur Abdomen/GI:Soft, Non tender, Bowel sounds present Extremities/Musculoskeletal:normal inspection, no edema, RUE hematoma, ecchymosis improving Neurologic/Psych:AAOX3, grossly no focal neurological deficits Skin: normal color, warm Results & Data Results & Data Vital Signs (Past 12 Hours) Vital Signs Temp Pulse Resp BP Pulse Ox O2 Del Method 02/06/25 07:50 Room Air 02/06/25 07:23 36.6 C 77 16 107/73 95 Room Air (1) Fall Encounter type: initial encounter Qualified Code(s): W19.XXXA - Unspecified fall, initial encounter
--- NOTE | 2025-02-06 14:36 | Discharge Summary ---
Date of Service February 06, 2025 Admission HPI Per Admitting Provider History obtained from chart review, interview with the patient and discussion with ED provider Past medical history of hypothyroidism, hyperlipidemia, history of recurrent PE, subclavian arterial stenosis, GERD, osteoporosis, Parkinson's disease, anxiety, hyperparathyroidism Last admission was in June 2024 with chest pain; was evaluated by cardiology and was treated for UTI. Patient presents to the hospital with mechanical fall. Patient reported getting out of bed to take her medication around 7 AM in the morning and fell. She fell on her head and her right arm. She denies any loss of consciousness. She noticed swelling and bruising on her right forearm was increasing which prompted her to come to the ED. She denies dizziness, visual disturbances, weakness/numbness of any body part, chest pain, shortness of breath, abdominal pain. On presentation to the ED, she was hypotensive, afebrile and saturating well in room air. Patient underwent CT head, CT cervical spine, CT chest, abdominal C T, forearm x-ray which did not show any acute findings. Urinalysis was positive for infection. No leukocytosis. Hemoglobin around 10.6 symptoms similar to her previous lab work. Patient was given IV fluids for hypotension. She was also given 1 dose of ceftriaxone; referred for admission Admission Exam Per Admitting Provider On physical examination; Constitutional: WD/WN, vitals as above, NAD, sitting up in bed, pleasant, conversing easily Respiratory: normal respiratory effort, lungs clear to auscultation, no wheeze, rales, rhonchi. Normal insp/exp effort, no accessory muscle use Cardiovascular: RRR, no murmur, no edema Vessels: no JVD or carotid bruit Chest: normal inspection of chest Abdomen: normal bowel sounds, soft, nontender, no hepatosplenomegaly Musculoskeletal: Right forearm has a swelling with overlying ecchymosis; nonpulsatile. Slightly tender. Neurologic: PERRL, EOMI, accommodation nl, no face palsy, no dysarthria CN's II- XI intact bilaterally and moves all extremities Psychiatric: A+Ox3, euthymic affect Principal Diagnosis Mechanical fall Hematoma on right forearm Urinary tract infection Discharge Data Allergies Allergy/AdvReac Type Severity Reaction Status Date / Time Sulfa (Sulfonamide Allergy Severe AIRWAY Verified 02/03/25 21:01 Antibiotics) EDEMA, Shortness of Breath, Rash tolterodine AdvReac Severe AIRWAY Verified 02/03/25 21:01 EDEMA cyclobenzaprine AdvReac Intermediate WORSENS Verified 02/03/25 21:01 RLS, "HEART POUNDS". famotidine AdvReac Intermediate Gastrointestinal Verified 02/03/25 21:01 Upset erythromycin base AdvReac Mild Drowsy Verified 02/03/25 21:01 nitroglycerin AdvReac Mild Headache Verified 02/03/25 21:01 Consultations 02/03/25 21:54 ED Decision to Admit Stat Procedures Performed Laboratory Results WBC 3.97 K/ul (4.8-10.8) L 02/04/25 07:47 RBC 3.13 M/uL (4.20-5.40) L 02/04/25 07:47 Hgb 10.5 g/dl (12.0-16.0) L 02/04/25 07:47 POC Hgb 10.5 g/dl (12.0-16.0) L 02/03/25 19:26 Hct 30.8 % (37.0-47.0) L 02/04/25 07:47 POC Hct 31 % (37-47) L 02/03/25 19:26 MCV 98.4 fL (80.0-100.0) 02/04/25 07:47 MCH 33.5 pg (25.0-34.0) 02/04/25 07:47 MCHC 34.1 g/dL (32.0-36.0) 02/04/25 07:47 RDW Std Deviation 45.0 fL (36.4-46.3) 02/04/25 07:47 RDW Coeff of Arturo 12.4 % (11.5-14.5) 02/04/25 07:47 Plt Count 192 K/uL (130-400) 02/04/25 07:47 MPV 9.1 fL (9.4-12.4) L 02/04/25 07:47 Immature Gran % (Auto) 0.3 % 02/04/25 07:47 Neut % (Auto) 57.4 % 02/04/25 07:47 Lymph % (Auto) 30.5 % 02/04/25 07:47 [place] % (Auto) 8.3 % 02/04/25 07:47 Eos % (Auto) 2.5 % 02/04/25 07:47 Baso % (Auto) 1.0 % 02/04/25 07:47 Neut # (Auto) 2.28 K/uL (1.40-6.50) 02/04/25 07:47 Lymph # (Auto) 1.21 K/uL (1.20-3.40) 02/04/25 07:47 [place] # (Auto) 0.33 K/uL (0.11-0.59) 02/04/25 07:47 Eos # (Auto) 0.10 K/uL (0.00-0.50) 02/04/25 07:47 Baso # (Auto) 0.04 K/uL (0.00-0.20) 02/04/25 07:47 Immature Gran # (Auto) 0.01 K/uL (0.01-0.20) 02/04/25 07:47 POC Sodium 142 mmol/L (135-144) 02/03/25 19:26 Sodium 139 mmol/L (136-145) 02/04/25 07:47 POC Potassium 3.9 mmol/L (3.3-5.0) 02/03/25 19:26 Potassium 3.9 mmol/L (3.5-5.1) 02/04/25 07:47 POC Chloride 107 mmol/L (101-112) 02/03/25 19:26 Chloride 112 mmol/L (98-107) H 02/04/25 07:47 Carbon Dioxide 23 mmol/L (21-32) 02/04/25 07:47 POC Total CO2 22 mmol/L (24-31) L 02/03/25 19:26 Anion Gap 4 (3-11) 02/04/25 07:47 POC Anion Gap 17.0 mmol/L (16-25) 02/03/25 19:26 POC BUN 17 mg/dl (7-18) 02/03/25 19:26 BUN 13 mg/dl (6-23) 02/04/25 07:47 Creatinine 0.66 mg/dl (0.6-1.2) 02/04/25 07:47 POC Creatinine 1.0 mg/dl (0.6-1.3) 02/03/25 19:26 Est Cr Clr Drug Dosing 44.7 ml/min 02/04/25 07:47 eGFR 86.45 02/04/25 07:47 BUN/Creatinine Ratio 19.7 (10-20) 02/04/25 07:47 Glucose 83 mg/dl (70-99(Fasting)) 02/04/25 07:47 POC Glucose (other) 89 mg/dl (70-99) 02/03/25 19:26 Calcium 7.7 mg/dl (8.6-10.3) L 02/04/25 07:47 POC Ioniz Calcium Wilfrid 1.18 mmol/l (1.12-1.32) 02/03/25 19: Total Bilirubin 0.5 mg/dl (0.2-1.0) 02/04/25 07:47 AST 10 U/L (13-39) L 02/04/25 07:47 ALT < 3 U/L (7-52) L 02/04/25 07:47 Alkaline Phosphatase 40 U/L (34-104) 02/04/25 07:47 Troponin I High Sens < 2.3 pg/ml (0-14) 02/03/25 19:19 Total Protein 5.4 gm/dl (6.0-8.3) L 02/04/25 07:47 Albumin 3.4 gm/dl (3.4-5.0) 02/04/25 07:47 Globulin 2.0 gm/dl (2.5-4.0) L 02/04/25 07:47 Albumin/Globulin Ratio 1.7 (0.9-2) 02/04/25 07:47 Lipase 33 U/L (11-82) 02/03/25 19:19 Urine Color Yellow 02/03/25 20: Urine Appearance Cloudy (Clear) A 02/03/25 20: Urine pH 5.5 (4.5-7.5) 02/03/25 20: Ur Specific Ramona > 1.045 (1.000-1.030) H 02/03/25 20: Urine Protein Trace (Negative) H 02/03/25 20:28 Urine Glucose (UA) Negative (Negative) 02/03/25 20: Urine Ketones Trace (Negative) H 02/03/25 20: Urine Blood Negative (Negative) 02/03/25 20: Urine Nitrite Positive (Negative) A 02/03/25 20:28 Urine Bilirubin Negative (Negative) 02/03/25 20:28 Urine Urobilinogen Negative (Negative) 02/03/25 20:28 Ur Leukocyte Esterase 2+ (Negative) H 02/03/25 20:28 Urine WBC (Auto) >50 /hpf (0-5) H 02/03/25 20:28 Urine RBC (Auto) 6-10 /hpf (0-2) H 02/03/25 20:28 U Hyaline Cast (Auto) 0-2 /lpf (0-2) 02/03/25 20:28 U Epithel Cells (Auto) 6-10 /hpf (0-2) H 02/03/25 20:28 Urine Bacteria (Auto) 4+ (None Seen) H 02/03/25 20:28 Impressions Abdomen/Pelvis CT 02/03/25 18:47 Exam(s): CT ABDOMEN + PELVIS With Contrast IV Amt: 93 ml opti 320 EXAM: CT Abdomen and Pelvis With Intravenous Contrast CLINICAL HISTORY: Trauma TECHNIQUE: Axial computed tomography images of the abdomen and pelvis with intravenous contrast. CTDI is 38 mGy and DLP is 546 mGy-cm. Automated exposure control was utilized for the study. A dose lowering technique was utilized adhering to the principles of ALARA. CONTRAST: Patient received 93 ml opti 320 of IV contrast COMPARISON: CT abdomen and pelvis 04/27/2022 FINDINGS: Lung bases: Unremarkable. No mass. No consolidation. ABDOMEN: Liver: Unremarkable. No mass. Gallbladder and bile ducts: Cholecystectomy. No ductal dilation. Pancreas: Unremarkable. No mass. No ductal dilation. Spleen: Unremarkable. No splenomegaly. Adrenals: Unremarkable. No mass. Kidneys and ureters: Unremarkable. No solid mass. No hydronephrosis. Stomach and bowel: Diverticulosis. No obstruction. No mucosal thickening. PELVIS: Appendix: No findings to suggest acute appendicitis. Bladder: Unremarkable. No mass. Reproductive: Hysterectomy. ABDOMEN and PELVIS: Intraperitoneal space: Unremarkable. No free air. No significant fluid collection. Bones/joints: There are degenerative changes of the spine. No acute fracture. There is levoscoliosis of the lumbar spine. No dislocation. Soft tissues: Unremarkable. Vasculature: Moderate atherosclerosis. No abdominal aortic aneurysm. Lymph nodes: Unremarkable. No enlarged lymph nodes. IMPRESSION: 1. No acute finding of the abdomen or pelvis. 2. Diverticulosis. Electronically signed by: Alondra Knott MD 02/03/25 21:[address] 02/03/25 18:47 Exam(s): CT C SPINE EXAM: CT Cervical Spine Without Intravenous Contrast CLINICAL HISTORY: Trauma. TECHNIQUE: Axial computed tomography images of the cervical spine without intravenous contrast. CTDI is 13 mGy and DLP is 570 mGy-cm. Automated exposure control was utilized for the study. A dose lowering technique was utilized adhering to the principles of ALARA. COMPARISON: No relevant prior studies available. FINDINGS: Vertebrae: There are degenerative changes throughout the cervical spine. No acute finding of the cervical spine. Discs/spinal canal/neural foramina: No acute findings. No spinal canal stenosis. Soft tissues: Unremarkable. IMPRESSION: No acute finding of the cervical spine. Electronically signed by: Alondra Knott MD 02/03/25 21:[address] 02/03/25 18:47 Exam(s): CT CHEST With Contrast IV Amt: 93 ml opti 320 EXAM: CT Chest With Intravenous Contrast CLINICAL HISTORY: Trauma. TECHNIQUE: Axial computed tomography images of the chest with intravenous contrast. CTDI is 23 mGy and DLP is 388 mGy-cm. Automated exposure control was utilized for the study. A dose lowering technique was utilized adhering to the principles of ALARA. CONTRAST: Patient received 93 ml opti 320 of IV contrast COMPARISON: No relevant prior studies available. FINDINGS: Lungs: Unremarkable. No mass. No consolidation. Pleural space: Unremarkable. No pneumothorax. No significant effusion. Heart: Coronary artery calcifications are present. No cardiomegaly. No significant pericardial effusion. Bones/joints: There are degenerative changes of the spine. No acute fracture. No dislocation. Soft tissues: Unremarkable. Vasculature: Moderate atherosclerosis. Lymph nodes: Unremarkable. No enlarged lymph nodes. IMPRESSION: No acute findings in the chest. Electronically signed by: Alondra Knott MD 02/03/25 21:17 PM Chest X-Ray 02/03/25 18:47 Chest radiograph, one view History: Chest pain Comparison: 06/17/2024 Findings: Single AP view of the chest performed. No focal consolidation or pleural effusion. No pneumothorax. The cardiomediastinal silhouette is within normal limits. Normal pulmonary vascularity. No evidence for lymphadenopathy. No visualized bony or soft tissue abnormality. Impression: Normal chest radiograph Electronically signed by Abran Boudreaux 02-03-2025 7:35 PM Forearm X-Ray 02/03/25 18:47 Study: Right forearm 3 views History: Pain Comparison: None Findings: There is no acute fracture or dislocation. Alignment is anatomic. Joint spaces are well maintained. Nonspecific soft tissue swelling is seen about the radial and dorsal aspect of the forearm. Bone mineralization is normal. Impression: No acute bony abnormality. There is soft tissue swelling Electronically signed by Abran Boudreaux 02-03-2025 7:[address] 02/03/25 18:47 Exam(s): CT HEAD Without Contrast EXAM: CT Head Without Intravenous Contrast CLINICAL HISTORY: Trauma. TECHNIQUE: Axial computed tomography images of the head/brain without intravenous contrast. CTDI is 38 mGy and DLP is 546 mGy-cm. Automated exposure control was utilized for the study. A dose lowering technique was utilized adhering to the principles of ALARA. COMPARISON: No relevant prior studies available. FINDINGS: Brain: No intracranial hemorrhage, mass-effect or midline shift. No abnormal extra axial fluid. No evidence of acute infarct. Mild periventricular white matter hypodensities are most consistent with chronic microangiopathy. Ventricles: Unremarkable. No ventriculomegaly. Bones/joints: Unremarkable. No acute fracture. Soft tissues: Unremarkable. Sinuses: Unremarkable as visualized. No acute sinusitis. Mastoid air cells: Unremarkable as visualized. No mastoid effusion. IMPRESSION: No acute intracranial finding. Electronically signed by: Alondra Knott MD 02/03/25 21:[address] 02/03/25 22:15 CR Exam(s): CT EXTREMITY RIGHT UPPER With Contrast IV Amt: 93 ML OPTIRAY 320 EXAM: CT Right Upper Extremity With Intravenous Contrast CLINICAL HISTORY: Rule out hematoma. TECHNIQUE: Axial computed tomography images of the right upper extremity with intravenous contrast. CTDI is 20.39 mGy and DLP is 637.98 mGy-cm. Automated exposure control was utilized for the study. A dose lowering technique was utilized adhering to the principles of ALARA. CONTRAST: Patient received 93 ML OPTIRAY 320 of IV contrast COMPARISON: No relevant prior studies available. FINDINGS: Bones/joints: Unremarkable. No acute fracture. No dislocation. Soft tissues: There is a 2.6 x 1.9 x 3.8 cm hematoma of the lateral proximal forearm with a small amount of active bleeding. Contusions of the forearm are also noted. IMPRESSION: There is a 2.6 x 1.9 x 3.8 cm hematoma of the lateral proximal forearm with a small amount of active bleeding. Communications: Verify Receipt Electronically signed by: Alondra Knott MD 02/04/25 00:15 AM Ordered Studies 02/03/25 18:47 CT abd pelvis IV con only Stat CT cervical spine wo con Stat CT chest diagnostic w con Stat CT head/brain wo con Stat 02/03/25 22:15 CT forearm RT w con Urgent Hospital Course (1) Fall: (2) UTI (urinary tract infection): Plan Mechanical fall Hematoma on right forearm--POA Secondary to fall, in setting of chronic anticoagulation with Eliquis Patient presents to the hospital with mechanical fall --Forearm CT: There is a 2.6 x 1.9 x 3.8 cm hematoma of the lateral proximal forearm with a small amount of active bleeding. --CT head, CT neck showed no acute process --CT abdomen showed diverticulosis but otherwise no acute process Monitor H&H and transfuse as needed Continue 2.5 elevation of upper extremity, apply Ice Eliquis on hold Fall precautions Monitor H&H and transfuse as needed Hematoma improving PT OT recommends home with home health Discharge home today UTI H/O recurrent UTIs Urine culture pulmonary growing Klebsiella Empirically on Rocephin>> transition to oral antibiotics to complete the course H/o Parkinson'scontinue on carbidopa levodopa; Reports that she takes it twice daily( morning and afternoon) instead of 3 times daily GERD/dysphagia Continue PPI Currently tolerating diet H/O recurrent PE on Eliquis Eliquis held due to hematoma as above Plan to resume Eliquis in 1 to 2 days if hemoglobin stable Restless leg syndromecontinue on ropinirole Orofacial dyskinesia test on atropine drops for drooling Mood disorder continue on Lexapro and Ativan as needed Hypothyroidism continue levothyroxine Hypertension Continue lisinopril Hyperparathyroidism calcium within normal limits; follows up with endocrinology DVT Px: Eliquis on hold for right upper extremity hematoma CODE STATUS DNR/DNI Disposition Home with home health Total Time Total Time Spent Total Time Spent (In Minutes): 48 minutes Discharge Plan Discharge Items Patient Disposition: Home - Home Health Services Reason For Visit: FALL Discharge Diagnosis: Mechanical fall Hematoma on right forearm Urinary tract infection Activity: Per Instructions section Exercise/Sports: Gradually increase as tolerated Non-emergency contact: Primary Care Provider Call non-emergency contact if: you have any medication questions, your symptoms worsen, your pain is concerning for you and you have a fever Follow-up/Referrals: Vika Castellanos, [Primary Care Provider] - (Date & Time 02/11/2025 11:00 AM Provider: Poli Patterson MD [facility], [facility] ) Diet: Regular Diet Texture: Easy to Chew Addtl Attending Provider Instructions: Follow-up with your primary care physician on 02/11/2025 11:00 AM -- Completed antibiotic course as prescribed -- Hold taking your blood thinner Eliquis for 3 more days. Can restart Eliquis if your hematoma improves Seek immediate medical attention if your symptoms reoccur or worsen Please review medication list provided on discharge for any medication changes as instructed. Please call if you have any questions or problems. You can reach a [facility] hospitalist on duty at [facility] 24 hours a day by calling [phone] Pending Studies at Discharge: No Stand-Alone Forms: My [facility], Smoking Cessation Medications and DC Order Prescriptions: New cefdinir 300 mg capsule 300 mg PO BID 5 Days Qty: 10 0RF Continued ropinirole 1 mg Tablet 1 mg PO HS levothyroxine 50 mcg tablet 50 mcg PO DAILYBB Rx Instructions: Take this medication at least 30 minutes before breakfast or any other medications montelukast 10 mg Tablet 10 mg PO QAM carbidopa-levodopa 25-100 mg Tablet 1 tab PO TID ondansetron HCl 4 mg tablet 4 mg PO BID gabapentin 300 mg capsule 300 mg PO BID diphenhydramine-acetaminophen [Tylenol PM Extra Strength] 25-500 mg Tablet 1 tab PO HS PRN (Reason: Sleep) potassium chloride [Klor-Con M10] 10 mEq tablet,ER particles/crystals 10 meq PO QAM lisinopril 2.5 mg Tablet 2.5 mg PO DAILY Qty: 30 0RF acetaminophen [Tylenol] 325 mg Tablet 325 - 650 mg PO DIRECTED PRN (Reason: PAIN/FEVER) lorazepam 0.5 mg tablet 0.5 mg PO BID PRN (Reason: ANXIETY/INSOMNIA) calcium carbonate 500 mg calcium (1,250 mg) Tablet 500 mg PO DAILY atropine 1 % drops 1 - 2 drp sublingual DIRECTED PRN (Reason: DROOLING) escitalopram oxalate 10 mg tablet 10 mg PO DAILY cholecalciferol (vitamin D3) [Vitamin D3] 125 mcg (5,000 unit) Tablet 125 mcg PO DAILY omeprazole 40 mg capsule,delayed release(DR/EC) 40 mg PO QAM ferrous sulfate 325 mg (65 mg iron) Tablet,Delayed Release (Dr/Ec) 325 mg PO QAM Qty: 30 0RF Rx Instructions: Take with largest meal of the day. This may cause your stool to turn dark and may cause constipation folic acid 1 mg Tablet 1 mg PO QAM Qty: 30 0RF tizanidine 2 mg tablet 2 mg PO BID albuterol sulfate 90 mcg/actuation Hfa Aerosol Inhaler 2 puff INHALATION Q6H PRN (Reason: COUGH/CHEST CONGESTION) fluticasone propionate 50 mcg/actuation Malin,Suspension 2 spray INTRANASAL DAILY Rx Instructions: administer into each nostril Held Eliquis 5 mg tablet 5 mg PO BID Hold Instructions: Resume on 02/09/25. Discharge Orders: Discharge Order (Routine); Ordered 02/06/25 Ordered By: Jayden Flores/Other Patient Handouts: ED Fall Prevention Admission Data Admit Date/Time: 02/03/25 21:52 Attending Provider: Jayden Sun Admit Provider: Ryan Barraza Primary Care Provider: Vika Castellanos Other Providers: Ryan Barraza; [facility],Home Healthcare Other Interventions: Discharge Summary Assessment (RN) Last Done: 02/06/25 15:30
[2025-02-06 15:11] VITALS: BP 95/66; PULSE 69; RESP 18; TEMP 97.5; O2SAT 96
== END 2025-02-06 17:19 | disposition home health service (06) | DRG 813 ==
LOC: ED 18:30 → INTOOBSV 21:52 → 3W 21:52 → 3N 02-06 02:35